=== PATIENT | female | born 1970 | race Caucasian/White ===

== ENCOUNTER → 2017-03-04 07:13 | Outpatient (CLI) | payer OTHER, SELFPAY ==
[2017-03-04 08:24] LABS: Anion Gap 12.1 mEq/L (5-15); Blood Urea Nitrogen 17 mg/dL (7-18); Calcium 8.7 mg/dL (8.5-10.1); Carbon Dioxide 31 mmol/L (21.0-32.0); Chloride 103 mmol/L (98-107); Creatinine,Serum 3.28 mg/dL (0.55-1.02); Estimated Glomerular Filt Rate 15 ml/min (>60); GFR (African American) 18 ML/MIN (>60); Glucose 94 mg/dL (74-106); Magnesium 2.3 mg/dL (1.4-2.2); Phosphorous 2.8 mg/dL (2.4-4.9); Potassium 4.1 mmoL/L (3.5-5.1); Sodium 142 mmol/L (136-145); Uric Acid 7.2 mg/dL (2.6-7.2)
[2017-03-04 09:24] LABS: Basophils # 0.1 K/mm3 (0-0.2); Basophils % 0.6 % (0.1-2.0); Eosinophils # 0.3 K/mm3 (0.0-0.4); Eosinophils % 4.3 % (0.1-12.0); Hematocrit 39.2 % (37.0-47.0); Hemoglobin 12.2 g/dL (12.2-16.2); Lymphocytes # 1.2 K/mm3 (0.7-4.5); Lymphocytes % 15.2 K/mm3 (10-50); Mean Corpuscular HGB Conc 31.2 g/dL (31.8-35.4); Mean Corpuscular Hemoglobin 28.6 pg (27.0-31.2); Mean Corpuscular Volume 91.6 fl (81-99); Mean Platelet Volume 8.1 fl (7.4-10.4); Monocytes # 0.5 K/mm3 (0.1-1.0); Monocytes % 5.9 % (1.7-9.3); Neutrophils # 5.6 K/mm3 (1.8-7.8); Neutrophils % 73.9 % (37.0-80.0); Platelet Count 400 K/mm3 (142-424); Red Blood Count 4.27 M/mm3 (4.20-5.40); Red Cell Distribution Width 12.9 % (11.5-17.5); White Blood Count 7.6 K/mm3 (4.8-10.8)
[2017-03-05 08:52] LABS: Vitamin D 25 Hydroxy 57.3 ng/mL (30.0-100.0)
[2017-03-06 18:20] LABS: Parathyroid Hormone Intact 134 pg/mL (15-65)
== END ==
PROVIDERS: PCP Family Medicine; Visit Provider Internal Medicine Nephrology
DX: N18.4 Chronic kidney disease, stage 4 (severe) (principal)
CPT/HCPCS: 36415; 80069; 82652; 83735; 83970; 84550; 85025

== ENCOUNTER → 2017-03-06 07:04 | Outpatient (CLI) | payer OTHER, SELFPAY ==
[2017-03-07 18:30] LABS: Calcium, Ionized 5.5 mg/dL (4.5-5.6)
== END ==
PROVIDERS: PCP Family Medicine; Visit Provider Internal Medicine Nephrology
DX: N18.4 Chronic kidney disease, stage 4 (severe) (principal)
CPT/HCPCS: 36415; 82330

== ENCOUNTER → 2017-03-09 13:01 | Outpatient (POV) | payer OTHER, SELFPAY | PROVIDERS: PCP Family Medicine; Visit Provider Internal Medicine Nephrology | DX: Z00.00 Encounter for general adult medical examination without abnormal findings (principal) ==

== ENCOUNTER → 2017-06-05 07:16 | Outpatient (CLI) | payer OTHER, SELFPAY | PROVIDERS: Visit Provider Internal Medicine Nephrology | DX: N18.5 Chronic kidney disease, stage 5 (principal) ==

== ENCOUNTER → 2017-06-08 06:59 | Outpatient (CLI) | payer OTHER, SELFPAY ==
[2017-06-08 08:42] LABS: Anion Gap 10.8 mEq/L (5-15); Blood Urea Nitrogen 17 mg/dL (7-18); Calcium 8.8 mg/dL (8.5-10.1); Carbon Dioxide 29 mmol/L (21.0-32.0); Chloride 104 mmol/L (98-107); Creatinine,Serum 3.09 mg/dL (0.55-1.02); Estimated Glomerular Filt Rate 16 ml/min (>60); GFR (African American) 20 ML/MIN (>60); Glucose 81 mg/dL (74-106); Magnesium 2.2 mg/dL (1.4-2.2); Phosphorous 2.5 mg/dL (2.4-4.9); Potassium 4.8 mmoL/L (3.5-5.1); Sodium 139 mmol/L (136-145)
== END ==
PROVIDERS: Visit Provider Internal Medicine Nephrology
DX: N18.5 Chronic kidney disease, stage 5 (principal)
CPT/HCPCS: 36415; 80069; 83520; 83735

== ENCOUNTER → 2017-06-15 14:15 | Outpatient (POV) | payer OTHER, SELFPAY | PROVIDERS: PCP Family Medicine; Visit Provider Internal Medicine Nephrology | DX: Z00.00 Encounter for general adult medical examination without abnormal findings (principal) ==

== ENCOUNTER → 2017-08-21 08:15 | Outpatient (CLI) | payer OTHER, SELFPAY ==
--- NOTE | 2017-08-21 08:18 | MM_ITS ---
MM Dig screening mamm BI w/CAD CAD Screening COMPARISON: Digital mammograms with CAD 02/01/2016 INDICATION: There is a history of breast cancer in a patient maternal aunt. TECHNIQUE: Standard CC and MLO images were obtained. R2 CAD reviewed. FINDINGS: There is a markedly dense and heterogenic parenchymal pattern definitely lessening the sensitivity of there is an asymmetric density lower inner quadrant right breast not definitely seen on the previous exam with slightly irregular borders. Recommend the patient return for spot compression views and 90 lateral view and ultrasound for additional evaluation. There is no other suspicious lesion and there are no suspicious microcalcifications. Mammography. IMPRESSION: Markedly dense parenchyma pattern with possible new asymmetric density right breast BI-RADS Category: 0 Need Additional Imaging Evaluation RECOMMENDED FOLLOW-UP: IMM - IMMEDIATE FOLLOW-UP RECOMMENDED (A letter has been sent to the patient regarding results of the study.)
== END ==
PROVIDERS: PCP Family Medicine; Visit Provider Family Medicine
DX: Z12.31 Encounter for screening mammogram for malignant neoplasm of breast (principal)
CPT/HCPCS: 77067

== ENCOUNTER → 2017-09-04 14:17 | Outpatient (CLI) | payer OTHER, SELFPAY ==
--- NOTE | 2017-09-04 14:20 | MM_ITS ---
MM Dig mamm DX unilat RT CAD COMPARISON: Digital mammograms with CAD 08/21/2017 INDICATION: Possible developing asymmetric density right breast TECHNIQUE: Possible compression MLO and exaggerated cc views FINDINGS: Markedly prominent heterogenic fibroglandular densities are seen in the breast. The possible asymmetric density which was best seen on the MLO view appears to compress out on the additional views. Ultrasound performed same date showed no suspicious lesion at this site. IMPRESSION: Negative problem-solving views with essentially negative ultrasound and recommend patient continue with yearly screening mammography BI-RADS Category: 1 Negative RECOMMENDED FOLLOW-UP: 1YR - 1 YEAR FOLLOW-UP (A letter has been sent to the patient regarding results of the study.)
--- NOTE | 2017-09-04 14:20 | US_ITS ---
US breast RT complete COMPARISON: None HISTORY: Possible developing asymmetric density on recent screening mammogram lower inner quadrant TECHNIQUE: Targeted ultrasound FINDINGS: Is a markedly heterogenic echogenic pattern of the breast parenchyma. There is a small hypoechoic benign-appearing cystic lesion at the 3:00 position near the nipple measuring 0.4 x 0.3 x 0.3 cm. There is another hypoechoic cystic-appearing lesion with internal echoes at the 10:00 position in the nipple measuring 0.7 x 0.7 x 0.3 cm. There is additional small cystic appearing lesion at the 9:00 position near the nipple. There is no suspicious solid lesion area in particular scanning in the 4:00 position lower inner quadrant show no abnormality. There are 2 normal appearing nodes in right axilla. IMPRESSION: Markedly and diffusely heterogenic echogenicity consistent with prominent fibrocystic change and consistent with the mammogram findings with no suspicious cystic or solid lesions seen and recommend patient continue with yearly screening mammography.
== END ==
PROVIDERS: PCP Family Medicine; Visit Provider Nurse Practitioner Family
DX: R92.8 Other abnormal and inconclusive findings on diagnostic imaging of breast (principal)
CPT/HCPCS: 76641; 77065

== ENCOUNTER → 2017-10-13 07:08 | Outpatient (CLI) | payer OTHER, SELFPAY ==
[2017-10-13 08:22] LABS: Albumin Level 2.8 gm/dL (3.4-5.0); Anion Gap 10.4 mEq/L (5-15); Blood Urea Nitrogen 12 mg/dL (7-18); Carbon Dioxide 30 mmol/L (21.0-32.0); Chloride 106 mmol/L (98-107); Creatinine,Serum 3.24 mg/dL (0.55-1.02); Estimated Glomerular Filt Rate 15 ml/min (>60); GFR (African American) 19 ML/MIN (>60); Glucose 79 mg/dL (74-106); Phosphorous 3.1 mg/dL (2.4-4.9); Potassium 4.4 mmoL/L (3.5-5.1); Sodium 142 mmol/L (136-145); Uric Acid 7.4 mg/dL (2.6-7.2)
== END ==
PROVIDERS: PCP Family Medicine; Visit Provider Internal Medicine Nephrology
DX: N18.4 Chronic kidney disease, stage 4 (severe) (principal)
CPT/HCPCS: 36415; 80069; 82652; 83520; 84550

== ENCOUNTER → 2017-10-26 12:54 | Outpatient (POV) | payer OTHER, SELFPAY | PROVIDERS: PCP Family Medicine; Visit Provider Internal Medicine Nephrology | DX: Z00.00 Encounter for general adult medical examination without abnormal findings (principal) ==

== ENCOUNTER → 2018-01-07 07:05 | Outpatient (CLI) | payer OTHER, SELFPAY ==
[2018-01-07 09:14] LABS: Albumin Level 2.9 gm/dL (3.4-5.0); Anion Gap 12.5 mEq/L (5-15); Blood Urea Nitrogen 16 mg/dL (7-18); Calcium 8.2 mg/dL (8.5-10.1); Carbon Dioxide 30 mmol/L (21.0-32.0); Chloride 101 mmol/L (98-107); Estimated Glomerular Filt Rate 13 ml/min (>60); GFR (African American) 16 ML/MIN (>60); Glucose 102 mg/dL (74-106); Phosphorous 3.2 mg/dL (2.4-4.9); Potassium 4.5 mmoL/L (3.5-5.1); Sodium 139 mmol/L (136-145)
[2018-01-07 09:18] LABS: Creatinine,Serum 3.73 mg/dL (0.55-1.02)
== END ==
PROVIDERS: Visit Provider Internal Medicine Nephrology
DX: N18.5 Chronic kidney disease, stage 5 (principal)
CPT/HCPCS: 36415; 80069

== ENCOUNTER → 2018-01-11 14:41 | Outpatient (POV) | payer OTHER, SELFPAY | PROVIDERS: Visit Provider Internal Medicine Nephrology | DX: Z00.00 Encounter for general adult medical examination without abnormal findings (principal) ==

== ENCOUNTER → 2018-01-26 07:35 | Outpatient (CLI) | payer OTHER, SELFPAY | PROVIDERS: Visit Provider Transplant Surgery | DX: Z76.82 Awaiting organ transplant status (principal) | CPT/HCPCS: 36415 ==

== ENCOUNTER → 2018-04-08 07:04 | Outpatient (CLI) | payer OTHER, SELFPAY ==
[2018-04-08 08:20] LABS: Albumin Level 2.7 gm/dL (3.4-5.0); Anion Gap 12.9 mEq/L (5-15); Blood Urea Nitrogen 23 mg/dL (7-18); Calcium 8.1 mg/dL (8.5-10.1); Carbon Dioxide 30 mmol/L (21.0-32.0); Chloride 98 mmol/L (98-107); Estimated Glomerular Filt Rate 10 ml/min (>60); GFR (African American) 13 ML/MIN (>60); Glucose 75 mg/dL (74-106); Phosphorous 4.3 mg/dL (2.4-4.9); Potassium 3.9 mmoL/L (3.5-5.1); Sodium 137 mmol/L (136-145); Uric Acid 8.3 mg/dL (2.6-7.2)
[2018-04-08 08:25] LABS: Basophils # 0.1 K/mm3 (0-0.2); Basophils % 0.6 % (0.1-2.0); Eosinophils # 0.4 K/mm3 (0.0-0.4); Eosinophils % 3.2 % (0.1-12.0); Hematocrit 40.2 % (37.0-47.0); Hemoglobin 12.6 g/dL (12.2-16.2); Lymphocytes # 1.3 K/mm3 (0.7-4.5); Lymphocytes % 10.7 % (10-50); Mean Corpuscular HGB Conc 31.3 g/dL (31.8-35.4); Mean Corpuscular Hemoglobin 28.9 pg (27.0-31.2); Mean Corpuscular Volume 92.3 fl (81-99); Mean Platelet Volume 7.5 fl (7.4-10.4); Monocytes # 0.5 K/mm3 (0.1-1.0); Monocytes % 3.9 % (1.7-9.3); Neutrophils # 9.9 K/mm3 (1.8-7.8); Neutrophils % 81.6 % (37.0-80.0); Platelet Count 438 K/mm3 (142-424); Red Blood Count 4.35 M/mm3 (4.20-5.40); Red Cell Distribution Width 14.7 % (11.5-17.5); White Blood Count 12.1 K/mm3 (4.8-10.8)
[2018-04-08 09:40] LABS: Creatinine,Serum 4.55 mg/dL (0.55-1.02)
== END ==
PROVIDERS: Visit Provider Internal Medicine Nephrology
DX: N18.5 Chronic kidney disease, stage 5 (principal)
CPT/HCPCS: 36415; 80069; 82652; 84550; 85025

== ENCOUNTER → 2018-04-12 12:36 | Outpatient (POV) | payer OTHER, SELFPAY | PROVIDERS: Visit Provider Internal Medicine Nephrology | DX: Z00.00 Encounter for general adult medical examination without abnormal findings (principal) ==

== ENCOUNTER → 2018-07-12 07:18 | Outpatient (CLI) | payer OTHER, SELFPAY ==
[2018-07-12 07:59] LABS: Basophils # 0.1 K/mm3 (0-0.2); Basophils % 0.5 % (0.1-2.0); Eosinophils # 0.3 K/mm3 (0.0-0.4); Eosinophils % 2.6 % (0.1-12.0); Hematocrit 39.1 % (37.0-47.0); Hemoglobin 12.9 g/dL (12.2-16.2); Lymphocytes # 1.4 K/mm3 (0.7-4.5); Lymphocytes % 13.8 % (10-50); Mean Corpuscular HGB Conc 32.9 g/dL (31.8-35.4); Mean Corpuscular Hemoglobin 29.9 pg (27.0-31.2); Mean Platelet Volume 7.4 fl (7.4-10.4); Monocytes # 0.5 K/mm3 (0.1-1.0); Monocytes % 4.5 % (1.7-9.3); Neutrophils % 78.5 % (37.0-80.0); Platelet Count 412 K/mm3 (142-424); Red Cell Distribution Width 14.6 % (11.5-17.5); White Blood Count 10.1 K/mm3 (4.8-10.8)
[2018-07-12 08:34] LABS: Anion Gap 12.9 mEq/L (5-15); Blood Urea Nitrogen 25 mg/dL (7-18); Calcium 8.4 mg/dL (8.5-10.1); Carbon Dioxide 34 mmol/L (21.0-32.0); Chloride 96 mmol/L (98-107); Estimated Glomerular Filt Rate 9 ml/min (>60); GFR (African American) 11 ML/MIN (>60); Glucose 77 mg/dL (74-106); Phosphorous 4.2 mg/dL (2.4-4.9); Potassium 3.9 mmoL/L (3.5-5.1); Sodium 139 mmol/L (136-145)
[2018-07-12 09:15] LABS: Creatinine,Serum 5.28 mg/dL (0.55-1.02)
[2018-07-16 06:19] LABS: Vitamin D 25 Hydroxy 83.7 ng/mL (30.0-100.0)
== END ==
PROVIDERS: Visit Provider Internal Medicine Nephrology
DX: N18.5 Chronic kidney disease, stage 5 (principal); Z76.82 Awaiting organ transplant status
CPT/HCPCS: 36415; 80069; 82652; 85025

== ENCOUNTER → 2018-07-21 14:31 | Outpatient (POV) | payer OTHER, SELFPAY | PROVIDERS: Visit Provider Internal Medicine Nephrology | DX: Z00.00 Encounter for general adult medical examination without abnormal findings (principal) ==

== ENCOUNTER → 2018-10-27 09:21 | Outpatient (CLI) | payer OTHER, SELFPAY ==
--- NOTE | 2018-10-27 09:23 | MM_ITS ---
PROCEDURE: MM DIG SCREENING MAMM BI W/CAD CLINICAL INDICATION: SCREENING There is a history of breast cancer patient's maternal aunt. COMPARISON: DMSB DIG MAMM-SCREEN STEPHANIE from 02/01/2016 [facility] MM Dig screening mamm BI w/CAD from 08/21/2017 DXRT MM Dig mamm DX unilat RT CAD from 09/04/2017 TECHNIQUE: Standard CC and MLO images were obtained. R2 CAD reviewed. FINDINGS: There is a diffusely dense and heterogenic parenchymal pattern lessening the sensitivity of mammography. The findings are fairly symmetrical bilaterally. There is no new or suspicious mass in either breast and no suspicious microcalcifications. There is a stable well-defined density lower left axilla likely a low-lying node. IMPRESSION: Diffusely dense and heterogenic parenchymal pattern with no suspicious lesions seen BI-RAD Category: 1 Negative FOLLOW-UP: 1YR 1 Year Follow-up (A letter has been sent to the patient regarding results of the study.) Dictated by: Dr. Charlie Lance MD 10/31/2018 19:[address] Charlie Lance MD in [place] 10/31/2018 19:33
== END ==
PROVIDERS: PCP Family Medicine; Referring Provider Nurse Practitioner Family; Visit Provider Nurse Practitioner Family
DX: Z12.31 Encounter for screening mammogram for malignant neoplasm of breast (principal)
CPT/HCPCS: 77067

== ENCOUNTER → 2018-11-04 06:59 | Outpatient (CLI) | payer OTHER, SELFPAY ==
[2018-11-04 07:27] LABS: Basophils % 0.4 % (0.1-2.0); Eosinophils # 0.2 K/mm3 (0.0-0.4); Eosinophils % 2.7 % (0.1-12.0); Hematocrit 35.8 % (37.0-47.0); Hemoglobin 10.8 g/dL (12.2-16.2); Lymphocytes # 1.3 K/mm3 (0.7-4.5); Lymphocytes % 13.7 % (10-50); Mean Corpuscular HGB Conc 30.1 g/dL (31.8-35.4); Mean Corpuscular Hemoglobin 29.5 pg (27.0-31.2); Mean Corpuscular Volume 98.2 fl (81-99); Mean Platelet Volume 7.7 fl (7.4-10.4); Monocytes # 0.6 K/mm3 (0.1-1.0); Monocytes % 6.9 % (1.7-9.3); Neutrophils % 76.4 % (37.0-80.0); Platelet Count 423 K/mm3 (142-424); Red Blood Count 3.65 M/mm3 (4.20-5.40); White Blood Count 9.1 K/mm3 (4.8-10.8)
[2018-11-04 09:02] LABS: Albumin Level 3.1 gm/dL (3.4-5.0); Anion Gap 12.9 mEq/L (5-15); Blood Urea Nitrogen 26 mg/dL (7-18); Calcium 8.8 mg/dL (8.5-10.1); Carbon Dioxide 32 mmol/L (21.0-32.0); Chloride 97 mmol/L (98-107); Estimated Glomerular Filt Rate 9 ml/min (>60); GFR (African American) 11 ML/MIN (>60); Glucose 73 mg/dL (74-106); Phosphorous 5.4 mg/dL (2.4-4.9); Potassium 3.9 mmoL/L (3.5-5.1); Sodium 138 mmol/L (136-145)
[2018-11-04 09:15] LABS: Creatinine,Serum 5.03 mg/dL (0.55-1.02)
[2018-11-06 13:46] LABS: Vitamin D 25 Hydroxy 73.1 ng/mL (30.0-100.0)
== END ==
PROVIDERS: Visit Provider Internal Medicine Nephrology
DX: N17.9 Acute kidney failure, unspecified (principal)
CPT/HCPCS: 36415; 80069; 82652; 84550; 85025

== ENCOUNTER → 2018-11-08 15:17 | Outpatient (POV) | payer OTHER, SELFPAY | PROVIDERS: Visit Provider Internal Medicine Nephrology | DX: Z00.00 Encounter for general adult medical examination without abnormal findings (principal) ==

== ENCOUNTER → 2018-11-30 08:19 | Outpatient (POV) | payer OTHER, SELFPAY | PROVIDERS: Visit Provider Dermatology | DX: Z00.00 Encounter for general adult medical examination without abnormal findings (principal) ==

== ENCOUNTER → 2019-01-11 08:31 | Outpatient (POV) | payer OTHER, SELFPAY | PROVIDERS: Visit Provider Dermatology | DX: Z00.00 Encounter for general adult medical examination without abnormal findings (principal) ==

== ENCOUNTER → 2019-01-21 07:07 | Outpatient (CLI) | payer OTHER, SELFPAY ==
[2019-01-21 07:55] LABS: Basophils % 0.4 % (0.1-2.0); Eosinophils # 0.3 K/mm3 (0.0-0.4); Eosinophils % 2.7 % (0.1-12.0); Hemoglobin 10.7 g/dL (12.2-16.2); Lymphocytes # 1.4 K/mm3 (0.7-4.5); Lymphocytes % 13.1 % (10-50); Mean Corpuscular HGB Conc 32.5 g/dL (31.8-35.4); Mean Corpuscular Hemoglobin 31.1 pg (27.0-31.2); Mean Corpuscular Volume 95.7 fl (81-99); Mean Platelet Volume 7.7 fl (7.4-10.4); Monocytes # 0.6 K/mm3 (0.1-1.0); Monocytes % 5.3 % (1.7-9.3); Neutrophils # 8.3 K/mm3 (1.8-7.8); Neutrophils % 78.4 % (37.0-80.0); Platelet Count 389 K/mm3 (142-424); Red Blood Count 3.45 M/mm3 (4.20-5.40); Red Cell Distribution Width 14.1 % (11.5-17.5); White Blood Count 10.6 K/mm3 (4.8-10.8)
[2019-01-21 09:05] LABS: Albumin Level 2.8 gm/dL (3.4-5.0); Anion Gap 9.7 mEq/L (5-15); Blood Urea Nitrogen 30 mg/dL (7-18); Calcium 8.2 mg/dL (8.5-10.1); Carbon Dioxide 37 mmol/L (21.0-32.0); Chloride 96 mmol/L (98-107); Estimated Glomerular Filt Rate 8 ml/min (>60); GFR (African American) 10 ML/MIN (>60); Glucose 69 mg/dL (74-106); Phosphorous 5.3 mg/dL (2.4-4.9); Potassium 3.7 mmoL/L (3.5-5.1); Sodium 139 mmol/L (136-145)
[2019-01-21 09:19] LABS: Creatinine,Serum 5.74 mg/dL (0.55-1.02)
== END ==
PROVIDERS: Internal Medicine Nephrology; Visit Provider Transplant Surgery
DX: N18.5 Chronic kidney disease, stage 5 (principal); Z76.82 Awaiting organ transplant status
CPT/HCPCS: 36415; 80069; 85025

== ENCOUNTER → 2019-01-26 13:45 | Outpatient (POV) | payer OTHER, SELFPAY | PROVIDERS: Visit Provider Internal Medicine Nephrology | DX: Z00.00 Encounter for general adult medical examination without abnormal findings (principal) ==

== ENCOUNTER → 2019-03-05 09:39 | Outpatient (CLI) | payer OTHER, SELFPAY ==
[2019-03-05 13:27] LABS: Anion Gap 10.6 mEq/L (5-15); Blood Urea Nitrogen 24 mg/dL (7-18); Calcium 7.9 mg/dL (8.5-10.1); Carbon Dioxide 32 mmol/L (21.0-32.0); Chloride 102 mmol/L (98-107); Estimated Glomerular Filt Rate 9 ml/min (>60); GFR (African American) 11 ML/MIN (>60); Glucose 71 mg/dL (74-106); Phosphorous 4.3 mg/dL (2.4-4.9); Potassium 4.6 mmoL/L (3.5-5.1); Sodium 140 mmol/L (136-145)
== END ==
PROVIDERS: Visit Provider Internal Medicine Nephrology
DX: N18.5 Chronic kidney disease, stage 5 (principal)
CPT/HCPCS: 36415; 80069

== ENCOUNTER → 2019-03-09 09:37 | Outpatient (POV) | payer OTHER, SELFPAY | PROVIDERS: Visit Provider Internal Medicine Nephrology | DX: Z00.00 Encounter for general adult medical examination without abnormal findings (principal) ==

== ENCOUNTER → 2019-03-29 08:02 | Outpatient (POV) | payer OTHER, SELFPAY | PROVIDERS: PCP Family Medicine; Visit Provider Dermatology | DX: Z00.00 Encounter for general adult medical examination without abnormal findings (principal) ==

== ENCOUNTER → 2019-04-08 07:10 | Outpatient (CLI) | payer OTHER, SELFPAY ==
[2019-04-08 07:27] LABS: Basophils # 0.1 K/mm3 (0-0.2); Basophils % 0.7 % (0.1-2.0); Eosinophils # 0.3 K/mm3 (0.0-0.4); Eosinophils % 3.5 % (0.1-12.0); Hematocrit 32.5 % (37.0-47.0); Hemoglobin 10.4 g/dL (12.2-16.2); Lymphocytes % 11.6 % (10-50); Mean Corpuscular HGB Conc 31.9 g/dL (31.8-35.4); Mean Corpuscular Hemoglobin 30.2 pg (27.0-31.2); Mean Corpuscular Volume 94.7 fl (81-99); Mean Platelet Volume 8.2 fl (7.4-10.4); Monocytes # 0.4 K/mm3 (0.1-1.0); Monocytes % 5.1 % (1.7-9.3); Neutrophils # 6.5 K/mm3 (1.8-7.8); Neutrophils % 79.2 % (37.0-80.0); Platelet Count 398 K/mm3 (142-424); Red Blood Count 3.43 M/mm3 (4.20-5.40); Red Cell Distribution Width 13.8 % (11.5-17.5); White Blood Count 8.2 K/mm3 (4.8-10.8)
[2019-04-08 09:29] LABS: Albumin Level 3.6 g/dl (3.5-5.0); Chloride 103 mmol/L (98-107); Potassium 4.3 mmoL/L (3.5-5.1); Sodium 139 mmol/L (136-145)
[2019-04-08 09:32] LABS: Anion Gap 12.3 mEq/L (5-15); Blood Urea Nitrogen 30 mg/dl (7-17); Carbon Dioxide 28 mmol/L (22.0-30.0); Estimated Glomerular Filt Rate 11 ml/min (>60); GFR (African American) 13 ML/MIN (>60)
[2019-04-08 09:33] LABS: Calcium 8.2 mg/dl (8.4-10.2); Glucose 78 mg/dl (74-100); Phosphorous 4.9 mg/dl (2.5-4.5)
[2019-04-09 08:32] LABS: Vitamin D 25 Hydroxy 67.7 ng/mL (30.0-100.0)
[2019-04-09 14:22] LABS: Parathyroid Hormone Intact 363 pg/mL (15-65)
== END ==
PROVIDERS: Visit Provider Internal Medicine Nephrology
DX: N18.5 Chronic kidney disease, stage 5 (principal)
CPT/HCPCS: 36415; 80069; 82652; 83970; 85025

== ENCOUNTER → 2019-04-13 12:37 | Outpatient (POV) | payer OTHER, SELFPAY | PROVIDERS: PCP Family Medicine; Visit Provider Internal Medicine Nephrology | DX: Z00.00 Encounter for general adult medical examination without abnormal findings (principal) ==

== ENCOUNTER → 2019-06-11 07:11 | Outpatient (CLI) | payer OTHER, SELFPAY ==
[2019-06-11 08:17] LABS: Basophils # 0.1 K/mm3 (0-0.2); Basophils % 0.9 % (0.1-2.0); Eosinophils # 0.4 K/mm3 (0.0-0.4); Eosinophils % 4.6 % (0.1-12.0); Hematocrit 34.4 % (37.0-47.0); Hemoglobin 10.8 g/dL (12.2-16.2); Lymphocytes # 1.1 K/mm3 (0.7-4.5); Mean Corpuscular HGB Conc 31.4 g/dL (31.8-35.4); Mean Corpuscular Hemoglobin 29.7 pg (27.0-31.2); Mean Corpuscular Volume 94.7 fl (81-99); Mean Platelet Volume 8.4 fl (7.4-10.4); Monocytes # 0.5 K/mm3 (0.1-1.0); Monocytes % 5.7 % (1.7-9.3); Neutrophils # 6.2 K/mm3 (1.8-7.8); Neutrophils % 75.7 % (37.0-80.0); Platelet Count 406 K/mm3 (142-424); Red Blood Count 3.63 M/mm3 (4.20-5.40); Red Cell Distribution Width 14.1 % (11.5-17.5); White Blood Count 8.2 K/mm3 (4.8-10.8)
[2019-06-11 11:07] LABS: Chloride 101 mmol/L (98-107)
[2019-06-11 11:08] LABS: Albumin Level 3.4 g/dl (3.5-5.0); Potassium 4.1 mmoL/L (3.5-5.1); Sodium 137 mmol/L (136-145)
[2019-06-11 11:10] LABS: Blood Urea Nitrogen 29 mg/dl (7-17); Estimated Glomerular Filt Rate 11 ml/min (>60); GFR (African American) 13 ML/MIN (>60)
[2019-06-11 11:11] LABS: Anion Gap 14.1 mEq/L (5-15); Carbon Dioxide 26 mmol/L (22.0-30.0); Glucose 66 mg/dl (74-100); Phosphorous 5.1 mg/dl (2.5-4.5)
--- NOTE | 2019-06-11 17:20 | PC.NURSE ---
LEFT MESSAGE AT OFFICE FOR DR CHAVEZ TO CALL THE LAB FOR A NOTIFICATION RESULT ON A PATIENT OF HIS
== END ==
PROVIDERS: Visit Provider Internal Medicine Nephrology
DX: N18.5 Chronic kidney disease, stage 5 (principal)
CPT/HCPCS: 36415; 80069; 85025

== ENCOUNTER → 2019-08-12 08:10 | Outpatient (CLI) | payer OTHER, SELFPAY ==
[2019-08-12 08:42] LABS: Basophils # 0.1 K/mm3 (0-0.2); Basophils % 0.6 % (0.1-2.0); Eosinophils # 0.3 K/mm3 (0.0-0.4); Eosinophils % 3.5 % (0.1-12.0); Hematocrit 36.5 % (37.0-47.0); Hemoglobin 11.8 g/dL (12.2-16.2); Lymphocytes # 1.2 K/mm3 (0.7-4.5); Lymphocytes % 12.5 % (10-50); Mean Corpuscular HGB Conc 32.4 g/dL (31.8-35.4); Mean Corpuscular Hemoglobin 30.9 pg (27.0-31.2); Mean Corpuscular Volume 95.2 fl (81-99); Mean Platelet Volume 7.7 fl (7.4-10.4); Monocytes # 0.4 K/mm3 (0.1-1.0); Monocytes % 4.3 % (1.7-9.3); Neutrophils # 7.6 K/mm3 (1.8-7.8); Neutrophils % 79.2 % (37.0-80.0); Platelet Count 369 K/mm3 (142-424); Red Blood Count 3.84 M/mm3 (4.20-5.40); Red Cell Distribution Width 14.9 % (11.5-17.5); White Blood Count 9.5 K/mm3 (4.8-10.8)
[2019-08-12 09:54] LABS: Chloride 105 mmol/L (98-107); Sodium 139 mmol/L (136-145)
[2019-08-12 09:55] LABS: Albumin Level 3.4 g/dl (3.5-5.0); Potassium 4.3 mmoL/L (3.5-5.1)
[2019-08-12 09:57] LABS: Anion Gap 10.3 mEq/L (5-15); Blood Urea Nitrogen 30 mg/dl (7-17); Carbon Dioxide 28 mmol/L (22.0-30.0); Estimated Glomerular Filt Rate 11 ml/min (>60); GFR (African American) 13 ML/MIN (>60); Uric Acid 5.2 mg/dl (2.5-6.2)
[2019-08-12 09:58] LABS: Calcium 8.1 mg/dl (8.4-10.2); Glucose 79 mg/dl (74-100); Phosphorous 4.9 mg/dl (2.5-4.5)
[2019-08-12 10:08] LABS: Total Iron Binding Capacity 382 ug/dL (265-497)
[2019-08-12 10:31] LABS: Ferritin 6.79 ng/ml (6.24-137)
[2019-08-12 10:42] LABS: 25-OH Vitamin D, Total 60.8 ng/mL (30-100)
[2019-08-13 18:05] LABS: Folate 9.6 ng/mL (>3.0)
== END ==
PROVIDERS: Visit Provider Internal Medicine Nephrology
DX: N18.5 Chronic kidney disease, stage 5 (principal)
CPT/HCPCS: 36415; 80069; 82306; 82728; 82746; 83550; 84550; 85025

== ENCOUNTER → 2019-11-15 08:10 | Outpatient (CLI) | payer OTHER, SELFPAY ==
--- NOTE | 2019-11-15 08:18 | MM_ITS ---
PROCEDURE: MM DIG SCREENING MAMM BI W/CAD Digital Breast Tomosynthesis Included CLINICAL INDICATION: SCREENING There is a history of breast cancer patient's mother and maternal aunt. Patient currently is on control pills. COMPARISON: MG SCBI MM Dig screening mamm BI w/CAD from 08/21/2017 MG DXRT MM Dig mamm DX unilat RT CAD from 09/04/2017 MG MM DIG SCREENING MAMM BI W/CAD from 10/27/2018 TECHNIQUE: Standard CC and MLO images and 3D Tomosynthesis was obtained. R2 CAD reviewed. FINDINGS: There is a diffusely dense and heterogenic parenchymal pattern bilaterally. Glandular elements are most prominent in the upper outer quadrants bilaterally. There is no suspicious lesion in either breast and no suspicious microcalcifications. IMPRESSION: Moderate diffuse breast density with no suspicious lesions seen BI-RAD Category: 1 Negative FOLLOW-UP: 1YR 1 Year Follow-up (A letter has been sent to the patient regarding results of the study.) Dictated by: Dr. Charlie Lance MD 11/16/2019 16:37 Dr. Charlie Lance MD in [place] 11/16/2019 16:37
== END ==
PROVIDERS: PCP Family Medicine; Visit Provider Family Medicine
DX: Z12.31 Encounter for screening mammogram for malignant neoplasm of breast (principal)
CPT/HCPCS: 77063; 77067

== ENCOUNTER → 2019-11-23 07:07 | Outpatient (CLI) | payer OTHER, SELFPAY ==
[2019-11-23 11:25] LABS: Albumin Level 3.7 g/dl (3.5-5.0); Anion Gap 14.5 mEq/L (5-15); Blood Urea Nitrogen 34 mg/dl (7-17); Calcium 8.4 mg/dl (8.4-10.2); Carbon Dioxide 27 mmol/L (22.0-30.0); Chloride 103 mmol/L (98-107); Estimated Glomerular Filt Rate 8 ml/min (>60); GFR (African American) 9 ML/MIN (>60); Glucose 80 mg/dl (74-100); Phosphorous 5.8 mg/dl (2.5-4.5); Potassium 4.5 mmoL/L (3.5-5.1); Sodium 140 mmol/L (136-145)
[2019-11-23 11:34] LABS: Intact Parathyroid Hormone 895.7 pg/mL (7.5-53.5)
[2019-11-23 11:39] LABS: 25-OH Vitamin D, Total 43.3 ng/mL (30-100)
[2019-11-26 14:17] LABS: Calcium, Ionized 4.6 mg/dL (4.5-5.6)
== END ==
PROVIDERS: Visit Provider Internal Medicine Nephrology
DX: N18.5 Chronic kidney disease, stage 5 (principal)
CPT/HCPCS: 36415; 80069; 82306; 82330; 83970

== ENCOUNTER → 2019-12-13 09:10 | Outpatient (POV) | payer OTHER, SELFPAY | PROVIDERS: Visit Provider Dermatology | DX: Z00.00 Encounter for general adult medical examination without abnormal findings (principal) ==

== ENCOUNTER → 2020-02-09 10:38 | Outpatient (CLI) | payer OTHER, SELFPAY ==
[2020-02-09 12:04] LABS: Albumin Level 3.8 g/dl (3.5-5.0); Anion Gap 12.6 mEq/L (5-15); Blood Urea Nitrogen 46 mg/dl (7-17); Calcium 8.5 mg/dl (8.4-10.2); Carbon Dioxide 33 mmol/L (22.0-30.0); Chloride 95 mmol/L (98-107); Estimated Glomerular Filt Rate 6 ml/min (>60); GFR (African American) 7 ML/MIN (>60); Glucose 91 mg/dl (74-100); Phosphorous 6.7 mg/dl (2.5-4.5); Potassium 4.6 mmoL/L (3.5-5.1); Sodium 136 mmol/L (136-145)
[2020-02-09 12:17] LABS: Intact Parathyroid Hormone 809.4 pg/mL (7.5-53.5)
[2020-02-11 14:35] LABS: Calcium, Ionized 4.6 mg/dL (4.5-5.6)
== END ==
PROVIDERS: Visit Provider Internal Medicine Nephrology
DX: N18.5 Chronic kidney disease, stage 5 (principal)
CPT/HCPCS: 36415; 80069; 82330; 83970

== ENCOUNTER → 2020-02-10 11:32 | Outpatient (CLI) | payer OTHER, SELFPAY | PROVIDERS: PCP Family Medicine; Visit Provider Transplant Surgery | DX: Z76.82 Awaiting organ transplant status (principal) | CPT/HCPCS: 36415 ==

== ENCOUNTER → 2020-03-23 07:09 | Outpatient (CLI) | payer OTHER, SELFPAY ==
[2020-03-23 08:05] LABS: Albumin Level 3.8 g/dl (3.5-5.0); Chloride 103 mmol/L (98-107); Potassium 4.5 mmoL/L (3.5-5.1); Sodium 138 mmol/L (136-145)
[2020-03-23 08:07] LABS: Blood Urea Nitrogen 44 mg/dl (7-17); Estimated Glomerular Filt Rate 6 ml/min (>60); GFR (African American) 8 ML/MIN (>60)
[2020-03-23 08:08] LABS: Anion Gap 10.5 mEq/L (5-15); Calcium 8.2 mg/dl (8.4-10.2); Carbon Dioxide 29 mmol/L (22.0-30.0); Glucose 113 mg/dl (74-100); Phosphorous 6.2 mg/dl (2.5-4.5)
== END ==
PROVIDERS: Visit Provider Internal Medicine Nephrology
DX: N18.5 Chronic kidney disease, stage 5 (principal)
CPT/HCPCS: 36415; 80069

== ENCOUNTER → 2020-04-10 10:34 | Outpatient (POV) | payer OTHER, SELFPAY | PROVIDERS: Visit Provider Dermatology | DX: Z00.00 Encounter for general adult medical examination without abnormal findings (principal) ==

== ENCOUNTER → 2020-04-20 07:38 | Outpatient (CLI) | payer OTHER, SELFPAY ==
[2020-04-21 09:35] LABS: Hepatitis B Surface Antigen Negative (Negative)
== END ==
PROVIDERS: Visit Provider Internal Medicine Nephrology
DX: N18.5 Chronic kidney disease, stage 5 (principal)
CPT/HCPCS: 36415; 87340

== ENCOUNTER → 2020-04-23 07:29 | Outpatient (CLI) | payer OTHER, SELFPAY ==
[2020-04-26 19:43] LABS: QuantiFERON-TB Gold Plus Negative (Negative)
== END ==
PROVIDERS: Visit Provider Internal Medicine Nephrology
DX: N18.5 Chronic kidney disease, stage 5 (principal)
CPT/HCPCS: 36415; 86480

== ENCOUNTER → 2020-05-16 07:09 | Outpatient (CLI) | payer OTHER, SELFPAY | PROVIDERS: Visit Provider Transplant Surgery | DX: Z76.82 Awaiting organ transplant status (principal) | CPT/HCPCS: 36415 ==

== ENCOUNTER 2020-05-19 10:11 | Emergency (ER) | payer OTHER, SELFPAY ==
[2020-05-19 10:28] VITALS: BP 147/96; PULSE 87; RESP 16; TEMP 36.9; O2SAT 100; BMI 19.2
--- NOTE | 2020-05-19 10:44 | HMH.EDUTC ---
[facility] [place] Disposition Clinical Impression: COVID-19 virus test result unknown Disposition: Home, Self-Care Condition on Discharge: Good Instructions: COVID-19: Testing and Tracing Additional Instructions: call back for results Referrals: Marcelo Reese MD [Primary Care Provider] - Time of Disposition: 10:46 Medical Decision Making - Regino Inquiry Pt receiving controlled substance: No Vital Signs: 05/19/20 10:28 Temperature 98.5 F Temperature Source Oral Pulse Rate [Right Brachial] 87 Respiratory Rate 16 Blood Pressure [Right Arm] 147/96 H Blood Pressure Mean [Right Arm] 113 Blood Pressure Source [Right Arm] Automatic Cuff Blood Pressure Position [Right Arm] Sitting 02 Sat by Pulse Oximetry 100 Oxygen Delivery Method Room Air Orders (Tests/Meds): ORDERS Category Date Time Status Covid-19 Nasal PCR ([facility]) Routine Lab 05/19/20 10:20 Received [facility] [place] HPI - General Chief complaint: Urgent Treatment Center Stated complaint: cov test Time Seen by Provider: 05/19/20 10:44 Mode of Arrival: Ambulatory Source of Information: Patient Limitations: No Limitations HEENT Symptoms (Recalled from RN notes): No Resp Symptoms (Recalled from RN notes): No Skin Symptoms (Recalled from RN notes): No MS Symptoms (Recalled from RN notes): No Functional Status (Recalled from RN notes): n/a - History of Present Illness Provider Complaint: 49 yr old female presents for a covid test. pt denies symptoms but is going to start dialysis and needs test prior to starting - Related Data Home Medications Medication Instructions Recorded Confirmed Amlodipine Besylate [Amlodipine 5 mg PO DAILY 07/28/18 05/19/20 5mg tab] Potassium Chloride [Klor-con 20 20 meq PO TID 07/28/18 05/19/20 mEq tablet] allopurinoL [Allopurinol 100mg 300 mg PO DAILY 07/28/18 05/19/20 tablet] carvediloL [Carvedilol 12.5mg Tab] 12.5 mg PO BID 07/28/18 05/19/20 Allergies Allergy/AdvReac Type Severity Reaction Status Date / Time Penicillins Allergy Intermediate Rash Verified 05/19/20 10:18 - Worker's Comp Is this a Worker's Comp case?: No [facility] History - Hepatitis A Screen Drug use history?: No High risk sexual behaviors?: No History of sexually transmitted infection?: No Currently employed?: No Childcare worker?: No Do you have indoor plumbing?: Yes Do you have electricity?: Yes Attestation statement:: This patient has been screened for Hepatitis A risk factors. I have reviewed the patient's past medical history: Yes Medical History: Reports:: Gastroesophageal Reflux Disease(GERD), Hypertension, Renal Disease (stage 4) Denies:: Diabetes Mellitus Type 1, Diabetes Mellitus Type 2, Internal Pacemaker, Lung Disease, Seizures Other Surgeries: Yes: Cholecystectomy. No: Pacemaker - Social History Smoking Status: Current every day smoker Tobacco Type: cigarettes, smokeless tobacco # Packs/Day (cigarettes): 1 Alcohol Intake: never Occupational Status: employed Housing: house Family Hx:: No significant family history ROS Obtained: Yes Systems reviewed as appropriate & no additional complaints - Constitutional Constitutional: Reports system reviewed and no additional complaints, except as docu, Denies fever(s) - Eyes Eyes: Reports system reviewed and no additional complaints, except as docu, Denies blurry vision - ENT Ears, Nose, Mouth, and Throat: Reports system reviewed and no additional complaints, except as docu, Denies otalgia - Cardiovascular Cardiovascular: Reports system reviewed and no additional complaints, except as docu, Denies pedal edema - Respiratory Respiratory: Reports system reviewed and no additional complaints, except as docu, Denies dyspnea - Gastrointestinal Gastrointestingal: Reports: system reviewed and no additional complaints, except as docu. Denies: change in stool character - Genitourinary Female Genitourinary: Reports system reviewed and no additional complaints, except as
[2020-05-19 10:50] VITALS: BP 147/96; PULSE 87; RESP 16; TEMP 36.9; O2SAT 100
== END 2020-05-19 10:51 | disposition home or self-care (01) ==
PROVIDERS: Emergency Provider Nurse Practitioner Family; PCP Family Medicine
DX: Z20.822 Contact with and (suspected) exposure to COVID-19 (principal); N18.4 Chronic kidney disease, stage 4 (severe)
CPT/HCPCS: 99202; G0463; U0003

== ENCOUNTER 2020-10-16 17:51 | Emergency (ER) | payer OTHER, SELFPAY ==
[2020-10-16 19:22] VITALS: PULSE 81; RESP 19; TEMP 36.5; O2SAT 98; BMI 19.2
[2020-10-16 19:29] VITALS: BP 136/82; PULSE 82; RESP 22; TEMP 36.5
--- NOTE | 2020-10-16 19:46 | HMH.EDUTC ---
[facility] [place] Disposition Clinical Impression: Exposure to COVID-19 virus Disposition: Home, Self-Care Condition on Discharge: Good Instructions: DI for COVID-19 (Suspected or Confirmed ), Preventing the Spread of Coronavirus Discharge Instructions Additional Instructions: Return if you begin to have difficulty breathing. Follow up with your regular doctor. Follow up with your transplant team. GO TO THE ER FOR ANY WORSENING SYMPTOMS Quarantine until you know the results of your covid-19 test. If it is positive, the health department should call you and give you further instructions about your length of Quarantine and other things. Notify your school or workplace of your results and follow their instructions regarding return to work/school. Referrals: Marcelo Reese MD [Primary Care Provider] - Time of Disposition: 19:50 Medical Decision Making - Medical Records Medical records reviewed: No: I reviewed the patient's medical records. - Regino Inquiry Pt receiving controlled substance: No Vital Signs: 10/16/20 19:22 10/16/20 19:29 Temperature 97.7 F 97.7 F Temperature Source Oral Oral Pulse Rate 82 Pulse Rate [Left] 81 Respiratory Rate 19 22 Blood Pressure 136/82 02 Sat by Pulse Oximetry 98 Orders (Tests/Meds): ORDERS Category Date Time Status Covid-19 Nasal PCR ([facility]) Routine Lab 10/16/20 19:15 Received [facility] [place] HPI - General Stated complaint: covid test Time Seen by Provider: 10/16/20 19:46 Mode of Arrival: Ambulatory Source of Information: Patient Limitations: No Limitations Description of Symptoms (Recalled from Triage Doc. by RN): pt was exposed to covid positve . HEENT Symptoms (Recalled from RN notes): No Resp Symptoms (Recalled from RN notes): No Skin Symptoms (Recalled from RN notes): No MS Symptoms (Recalled from RN notes): No Functional Status (Recalled from RN notes): na - History of Present Illness Provider Complaint: Her currently has covid-19 in her home. She is on the kidney transplant list at . She was told by her transplant team to get a covid test. - Related Data Home Medications Medication Instructions Recorded Confirmed Amlodipine Besylate [Amlodipine 5 mg PO DAILY 07/28/18 05/19/20 5mg tab] Potassium Chloride [Klor-con 20 20 meq PO TID 07/28/18 05/19/20 mEq tablet] allopurinoL [Allopurinol 100mg 300 mg PO DAILY 07/28/18 05/19/20 tablet] carvediloL [Carvedilol 12.5mg Tab] 12.5 mg PO BID 07/28/18 05/19/20 Allergies Allergy/AdvReac Type Severity Reaction Status Date / Time Penicillins Allergy Intermediate Rash Verified 05/19/20 10:18 - Worker's Comp Is this a Worker's Comp case?: No [facility] History - Hepatitis A Screen Drug use history?: No High risk sexual behaviors?: No History of sexually transmitted infection?: No Currently employed?: No Childcare worker?: No Do you have indoor plumbing?: Yes Do you have electricity?: Yes Attestation statement:: This patient has been screened for Hepatitis A risk factors. I have reviewed the patient's past medical history: Yes Medical History: Reports:: Gastroesophageal Reflux Disease(GERD), Hypertension, Renal Disease (stage 4) Denies:: Diabetes Mellitus Type 1, Diabetes Mellitus Type 2, Internal Pacemaker, Lung Disease, Seizures Other Surgeries: Yes: Cholecystectomy. No: Pacemaker - Social History Smoking Status: Current every day smoker Tobacco Type: cigarettes, smokeless tobacco # Packs/Day (cigarettes): 1 Alcohol Intake: never Occupational Status: employed Housing: house Family Hx:: No significant family history ROS Obtained: Yes All systems reviewed & no additional complaints - Constitutional Constitutional: Reports system reviewed and no additional complaints, except as docu - Eyes Eyes: Reports system reviewed and no additional complaints, except as docu - ENT Ears, Nose, Mouth, and Throat: Reports system reviewed and no additional complaints, e
== END 2020-10-16 19:56 | disposition home or self-care (01) ==
PROVIDERS: Emergency Provider Nurse Practitioner Family; PCP Family Medicine
DX: Z20.822 Contact with and (suspected) exposure to COVID-19 (principal)
CPT/HCPCS: 99202; G0463; U0003

== ENCOUNTER → 2020-11-16 07:48 | Outpatient (CLI) | payer OTHER, SELFPAY ==
--- NOTE | 2020-11-16 07:53 | MM_ITS ---
PROCEDURE INFORMATION: Exam: MG Bilateral Screening 3D Mammography Exam date and time: 11/16/2020 7:53 AM Age: 50 years old Clinical indication: Encounter for screening mammogram for malignant neoplasm of breast TECHNIQUE: Imaging protocol: Bilateral screening tomosynthesis and 2D mammography including computer-aided detection (CAD) when performed. COMPARISON: No relevant prior studies available. FINDINGS: MAMMOGRAPHY: Breast composition: The breast tissue is extremely dense, limiting the sensitivity of mammography. Mass: None. Architectural distortion: None. Calcifications: Clustered calcifications in the posterior third of the left upper outer quadrant Asymmetric density: None. Skin thickening: None. Axillary adenopathy: None. IMPRESSION: Patient to be recalled for spot magnification views of the left breast in the CC and MLO projections for further evaluation of left breast calcifications. ASSESSMENT: BI-RADS Category 0: Incomplete- Need Additional Imaging Evaluation and/or Prior Mammograms for Comparison
== END ==
PROVIDERS: PCP Family Medicine; Visit Provider Family Medicine
DX: Z12.31 Encounter for screening mammogram for malignant neoplasm of breast (principal)
CPT/HCPCS: 77063; 77067

== ENCOUNTER → 2020-12-20 07:30 | Outpatient (CLI) | payer OTHER, SELFPAY ==
[2020-12-21 07:11] LABS: Hepatitis B Surf Ab Quant <3.1 mIU/mL (Immunity>9.9)
== END ==
PROVIDERS: Visit Provider Surgery
DX: N18.6 End stage renal disease (principal)
CPT/HCPCS: 36415; 86706

== ENCOUNTER → 2020-12-27 07:21 | Outpatient (CLI) | payer OTHER, SELFPAY ==
[2020-12-28 09:25] LABS: Hep B Core Ab, Total Negative (Negative); Hep B Surface Ab, Qual Non Reactive (.); Hepatitis B Surface Antigen Negative (Negative)
[2020-12-28 22:18] LABS: HBV IU/mL HBV DNA not detected IU/mL (.)
== END ==
PROVIDERS: Visit Provider Surgery
DX: Z01.818 Encounter for other preprocedural examination (principal); Z94.0 Kidney transplant status
CPT/HCPCS: 36415; 86704; 86706; 87340; 87517

== ENCOUNTER → 2021-01-01 14:47 | Outpatient (CLI) | payer OTHER, SELFPAY ==
--- NOTE | 2021-01-01 14:51 | MM_ITS ---
PROCEDURE INFORMATION: Exam: MG Left Diagnostic Breast Tomosynthesis Exam date and time: 01/01/2021 2:51 PM Age: 50 years old Clinical indication: Callback for additional assessment calcifications in the left breast TECHNIQUE: Imaging protocol: Left Diagnostic tomosynthesis and 2D mammography including computer-aided detection (CAD) when performed. Unilateral or bilateral exam. COMPARISON: 1. MG MM DIG SCREENING MAMM BI W/CAD 11/16/2020 8:02 AM 2. MG MM DIG SCREENING MAMM BI W/CAD 11/15/2019 8:28 AM 3. MG MM DIG SCREENING MAMM BI W/CAD 10/27/2018 9:52 AM 4. MG [facility] MM Dig screening mamm BI w/CAD 08/21/2017 8:40 AM FINDINGS: The MAMMOGRAPHY: In the slightly upper outer far posterior left breast, about 8 cm from the nipple, there is a pleomorphic cluster of new calcifications spanning about 7 mm. No associated mass or architectural distortion is present. IMPRESSION: Stereotactic biopsy is recommended to definitively characterize a new cluster of indeterminate upper outer posterior left breast calcifications ASSESSMENT: BI-RADS category 4: Suspicious
== END ==
PROVIDERS: PCP Family Medicine; Visit Provider Nurse Practitioner Family
DX: R92.1 Mammographic calcification found on diagnostic imaging of breast (principal)
CPT/HCPCS: 77061; 77065; G0279

== ENCOUNTER → 2021-01-21 08:33 | Outpatient (CLI) | payer OTHER, SELFPAY ==
--- NOTE | 2021-01-21 08:37 | MM_ITS ---
PROCEDURE: MM STEREOTACTIC LOC LT MM CLIP PLACEMENT LEFT. MM SURGICAL SPECIMEN LEFT CLINICAL INDICATION: ABN LT MAMM Suspicious left breast calcifications TECHNIQUE: The patient was given 1 mg of Xanax, Lortab 5 mg, and analgesia and minor sedation. Informed consent was obtained and time-out procedure performed. The patient was placed on the stereotactic table and the abnormality was localized in the most appropriate projection. The left breast was prepped in the routine manner, with sterile prep and the overlying skin anesthetized. A 3 to 4 mm skin incision was performed and the 9 gauge sorus vacuum-assisted core biopsy needle was advanced to the region of the calcification. Pre- and post fire images were obtained. After adequate positioning relative to the calcifications was ensured, multiple biopsies were obtained in the region of the calcifications specifically. The core biopsies obtained were sent for specimen mammography. After the calcifications were indeed identified on the specimen mammogram, the procedure was terminated. The patient tolerated the procedure well without complications. Specimen was sent for pathologic analysis . A tiny titanium nonferromagnetic MicroMark was positioned through the mammotome needle into the biopsy site. Pathology: The florid proliferative breast disease, usual duct hyperplasia with calcifications. Negative for atypical hyperplasia or malignancy. IMPRESSION: 1. Successful stereotactic vacuum-assisted core biopsy of the breast calcifications. 2. Successful placement of a titanium metal MicroMark. 3. No noted complications. SPECIMEN RADIOGRAPH: The mammographically evident calcifications from the prior study are currently evident within the Sheeba dish and within the specimens obtained during mammotome procedure. This is considered an adequate specimen and the procedure was terminated. IMPRESSION: Successful removal of described breast calcifications. BREAST MAMMOGRAM: Compared to the prior study, the previously noted calcification have been removed. A small MicroMark clip was inserted into the region of the calcifications. There is evidence of soft tissue changes in the region of the biopsy was soft tissue gas and edema. 4. Adequate placement of the MicroMark clip postbiopsy. 5. Postbiopsy changes within the breast. Dictated by: John Lino MD 02/08/2021 09:30 John Lino MD in [place] 02/08/2021 09:30
== END ==
PROVIDERS: PCP Family Medicine; Visit Provider Family Medicine
DX: R92.1 Mammographic calcification found on diagnostic imaging of breast; R92.8 Other abnormal and inconclusive findings on diagnostic imaging of breast; D48.62 Neoplasm of uncertain behavior of left breast
CPT/HCPCS: 19081; 76098; 77065

== ENCOUNTER → 2021-06-25 08:21 | Outpatient (POV) | payer OTHER, SELFPAY | PROVIDERS: Visit Provider Dermatology | DX: Z00.00 Encounter for general adult medical examination without abnormal findings (principal) ==

== ENCOUNTER → 2021-10-30 07:11 | Outpatient (CLI) | payer BC, SELFPAY | PROVIDERS: PCP Family Medicine; Visit Provider Surgery | DX: Z01.812 Encounter for preprocedural laboratory examination (principal); Z20.822 Contact with and (suspected) exposure to COVID-19 | CPT/HCPCS: C9803; U0003; U0005 ==

== ENCOUNTER 2021-11-01 08:27 | Day surgery (SDC) | payer BC, SELFPAY ==
[2021-10-29 13:24] VITALS: BMI 15.5
[2021-11-01] VITALS (8 sets, daily range): BP systolic 79–128; BP diastolic 54–79; PULSE 66–83; RESP 16–18; TEMP 36.2–36.4; O2SAT 95–99
--- NOTE | 2021-11-01 09:28 | P.PN_ITS ---
[facility] Medical History History of peritoneal dialysis History of renal failure Surgical History History of cholecystectomy Family History Other Colon cancer Family history of cancer Social History Smoking Status: Current every day smoker tobacco type: cigarettes packs per day: 1 and smokeless tobacco alcohol intake: never substance use type: denies use current occupational status: employed Travel in the last 8 weeks: None housing: house caffeine: Yes [facility] Anesthesia Checklist Patient Identification Patient Identification: Arm Band Structural Data Admitted From: Home Planned Operative Procedure/s: Colonoscopy Consent for Planned Operative Procedure(s) Verified: Yes NPO Status Verified Time NPO: 05:00 Chart Verification Results Verified: CBC and BMP Additional verifications Anesthesia Reactions: No Airway Assessment C-Spine Mobility Assessed: Yes TMJ Mobility Assessed: Yes Dentition: Good Dentition Neurological Assessment Level of Consciousness: Awake Hx Seizures: No Numbness or tingling in extremities: No Anesthesia Plan Anesthesia Risk discussed: Yes Anesthesia Plan: Verified ASA Class: III Anesthesia Type: MAC
[2021-11-01 09:39] LABS: HCG Qualitative, Serum Negative (Negative)
--- NOTE | 2021-11-01 10:31 | HMH.SCOPE ---
Procedure: Date: 11/01/21 Patient Date of :: 1970 Procedure Performed:: Colonoscopy with polypectomy using biopsy forceps Indications:: Patient is a 51-year-old female with history of renal failure receiving peritoneal dialysis. She states that transplant program requested colonoscopy. She did have previous colonoscopy in [address] Sarkis Carrington and was found to have several 9 to 12 mm tubular adenomas in the transverse and descending colon. He has had recommended a 3-year follow-up colonoscopy Performing Provider:: Yariel Carmichael MD Referring Provider:: Marcelo Reese MD Sedation:: MAC sedation Procedure:: Patient was taken to endoscopy procedure room. She was positioned in lateral decubitus position. Adequate intravenous sedation was achieved. Digital examination was performed which was unremarkable. Variable stiffness Olympus colonoscope was inserted via the anus. It was advanced to the cecum. Colonic preparation was fair. Ileocecal valve and appendiceal orifice were identified. There was a very tiny diminutive polyp in the cecum which was removed with cold biopsy forceps. There was some minor oozing, likely secondary to renal failure, and to assure hemostasis Hemoclip was deployed. Colonoscope was withdrawn through the colon with careful surveillance with thorough irrigation and suctioning. In the descending colon there was a tiny diminutive polyp removed with biopsy forceps. Immediately distal to this at approximately 65 cm from the anal verge there was some mucosal irregularity. This did not appear to necessarily be adenomatous. However, multiple biopsies were obtained to assess for adenomatous change as this will subtle and somewhat of a widespread area along mucosal fold. Yun ink was injected at the site submucosally to ren the area in the event of need for future intervention. Colonoscope was withdrawn through the remainder of the colon. Retroflexion was performed within the rectum which revealed minor internal hemorrhoids. Colonoscope was withdrawn. Findings:: Very tiny subtle diminutive polyp in the cecum and descending colon Subtle mucosal irregularity in the ascending colon, biopsied, area marked with Yun ink Recommendations:: If the biopsies of the area in the descending colon are positive for adenomatous change likely will need early follow-up colonoscopy, possibly at [facility] with submucosal polypectomy. However, if these biopsies are non-adenomatous likely repeat colonoscopy 5 years. Complications:: None immediately apparent Estimated blood obtained (mL): 1
== END 2021-11-01 12:05 | disposition home or self-care (01) ==
PROVIDERS: PCP Family Medicine; Visit Provider Surgery
PROC: 0DJD8ZZ Inspection of Lower Intestinal Tract, Via Natural or Artificial Opening Endoscopic (ICD-10-PCS; CPT 45380; principal; 2021-11-01 09:30)
DX: Z12.11 Encounter for screening for malignant neoplasm of colon (principal); K63.5 Polyp of colon; Z79.899 Other long term (current) drug therapy; Z72.0 Tobacco use
CPT/HCPCS: 45380; 84703; 88305; J2704

== ENCOUNTER → 2021-12-26 10:54 | Outpatient (CLI) | payer BC, SELFPAY ==
--- NOTE | 2021-12-26 10:56 | MM_ITS ---
PROCEDURE INFORMATION: Exam: MG Bilateral Screening 3D Mammography Exam date and time: 12/26/2021 10:48 AM Age: 51 years old Clinical indication: Screening examination TECHNIQUE: Imaging protocol: Bilateral Screening tomosynthesis and 2D mammography including computer-aided detection (CAD) when performed. COMPARISON: 1. MG MM CLIP PLACEMENT LT 01/21/2021 10:42 AM 2. MG MM SURGICAL SPECIMEN LT 01/21/2021 10:17 AM FINDINGS: MAMMOGRAPHY: Breast composition: The breasts are extremely dense, which lowers the sensitivity of mammography. Mass: None. Architectural distortion: None. Calcifications: No suspicious calcifications. Asymmetric density: None. Skin thickening: None. Axillary adenopathy: None. IMPRESSION: No mammographic evidence of malignancy. Annual screening is recommended unless otherwise clinically indicated. ASSESSMENT: BI-RADS Category 1: Negative
== END ==
PROVIDERS: PCP Family Medicine; Visit Provider Family Medicine
DX: Z12.31 Encounter for screening mammogram for malignant neoplasm of breast (principal)
CPT/HCPCS: 77063; 77067

== ENCOUNTER → 2022-02-12 07:19 | Outpatient (CLI) | payer BC, SELFPAY ==
[2022-02-12 07:23] LABS: Microscopic, Urine URINE MICROSCOPIC (MICROSCOPIC)
[2022-02-12 07:33] LABS: Basophils # 0.1 K/mm3 (0-0.2); Basophils % 0.8 % (0.1-2.0); Eosinophils # 0.3 K/mm3 (0.0-0.4); Eosinophils % 3.1 % (0.1-12.0); Hematocrit 33.5 % (37.0-47.0); Hemoglobin 10.5 g/dL (12.2-16.2); Lymphocytes # 1.2 K/mm3 (0.7-4.5); Lymphocytes % 11.2 % (10-50); Mean Corpuscular HGB Conc 31.4 g/dL (31.8-35.4); Mean Corpuscular Hemoglobin 31.4 pg (27.0-31.2); Mean Platelet Volume 7.3 fl (7.4-10.4); Monocytes # 0.8 K/mm3 (0.1-1.0); Monocytes % 7.7 % (1.7-9.3); Neutrophils # 8.1 K/mm3 (1.8-7.8); Neutrophils % 77.2 % (37.0-80.0); Platelet Count 713 K/mm3 (142-424); Red Blood Count 3.35 M/mm3 (4.20-5.40); Red Cell Distribution Width 12.5 % (11.5-17.5); White Blood Count 10.4 K/mm3 (4.8-10.8)
[2022-02-12 07:55] LABS: Appearance,Urine SL CLOUDY (Clear); Blood, Urine 2+ (Negative); Color,Urine YELLOW (Yellow); Glucose,Urine (UA) Negative (Negative); Ketones,Urine Negative (Negative); Leukocyte Esterase,Urine 2+ (Negative); Nitrate,Urine Negative (Negative); PH,Urine 8.5 (5.0-8.5); Protein,Urine 2+ (Negative); Urobilinogen,Urine 0.2 EU/dl (0.2)
[2022-02-12 07:57] LABS: Bilirubin,Urine 1+ (Negative)
[2022-02-12 08:00] LABS: Bacteria,Urine Trace /lpf
[2022-02-12 08:22] LABS: Chloride 88 mmol/L (98-107)
[2022-02-12 08:23] LABS: Potassium 3.8 mmoL/L (3.5-5.1); Sodium 133 mmol/L (136-145)
[2022-02-12 08:25] LABS: Alanine Aminotransferase 13 U/L (12-78); Aspartate Amino Transferase 23 U/L (14-36); Blood Urea Nitrogen 54 mg/dl (7-17); Estimated Glomerular Filt Rate 6 ml/min (>60); GFR (African American) 7 ML/MIN (>60)
[2022-02-12 08:26] LABS: Albumin Level 2.4 g/dl (3.5-5.0); Alkaline Phosphatase 116 U/L (38-126); Bilirubin,Total 0.2 mg/dl (0.2-1.3); Calcium 7.5 mg/dl (8.4-10.2); Globulin 2.5 g/dL (1.3-3.2); Glucose 88 mg/dl (74-100); Total Protein,Serum 4.9 g/dl (6.3-8.2)
[2022-02-12 08:42] LABS: Anion Gap 7.8 mEq/L (5-15); Carbon Dioxide 41 mmol/L (22.0-30.0)
== END ==
PROVIDERS: PCP Family Medicine; Visit Provider Orthopaedic Surgery
DX: Z01.818 Encounter for other preprocedural examination (principal); M71.321 Other bursal cyst, right elbow
CPT/HCPCS: 36415; 80053; 81001; 85025; 87086

== ENCOUNTER 2022-02-17 10:17 | Day surgery (SDC) | payer BC, SELFPAY ==
[2022-02-13 10:47] VITALS: BMI 15.5
[2022-02-17] VITALS (10 sets, daily range): BP systolic 114–144; BP diastolic 49–86; PULSE 76–94; RESP 12–18; TEMP 36.4–36.7; O2SAT 93–98
[2022-02-17 10:40] LABS: Urine Pregnancy, HCG Qual. Negative (Negative)
--- NOTE | 2022-02-17 13:03 | EXP.OP.NOTE ---
Date of procedure: 02/17/22 Pre-op Diagnosis:: Soft tissue mass right Post-op Diagnosis:: Same Procedure performed:: Excision soft tissue mass right elbow Surgeon:: Massimo Garcia DO ALL SOURCE ANALYST:: Rajendra Roa Anesthesia: GETA Estimated blood loss (mL): 0 Clinical Note:: 51-year-old female with slow-growing soft tissue mass on the right elbow dorsal surface just distal to the olecranon. Operative findings:: Soft tissue mass right elbow Operative note:: Patient notified preoperatively right elbow marked yes my initials transported operative suite placed upon operating bed. General anesthesia ministered. Airway secured. Right upper extremity prepped draped normal sterile fashion. Once prepped and draped final operative timeout performed to identify proper patient procedure and extremity. Everyone involved in the case agreed. There were no counter indications to beginning. Did receive preoperative antibiotics. Marking pen was used to ren plan incision around the soft tissue mass of the elbow. Tourniquet was inflated 200 mmHg. Skin knife was used to incise the skin careful dissection taken down with the scissors to identify soft tissue mass at the right elbow. This was superficial in nature and somewhat adherent to the skin. Did not have encapsulated margins like a lipoma careful dissection with the scissors down to remove the mass in its entirety. Passed to the back table for pathology. Copious irrigation of wound performed. Tourniquet deflated. Hemostasis obtained electrocautery bipolar. Skin closed with nylon stitch. Sterile elbow dressing was placed. Patient awakened from anesthesia taken recovery stable condition. Tourniquet time (min): 17 Condition: stable Disposition: PACU Complications:: None apparent
--- NOTE | 2022-02-17 13:14 | EXP.ANES.CKL ---
[facility] Disclaimer: The information contained in this section may have been updated after the patient was seen, as this information can be updated by other users. Medical History (Updated 02/17/22 @ 10:58 by Kait Marrero RN) Anorexia History of peritoneal dialysis History of renal failure Peritoneal dialysis catheter in place Surgical History History of cholecystectomy History of colonoscopy Family History Other Colon cancer Family history of cancer Social History Smoking Status: Current every day smoker tobacco type: cigarettes packs per day: 1 and smokeless tobacco alcohol intake: never substance use type: denies use current occupational status: employed Travel in the last 8 weeks: None housing: house caffeine: Yes [facility] Anesthesia Checklist Patient Identification Patient Identification: Verbal (Name & ) Structural Data Admitted From: Home Planned Operative Procedure/s: excision neoplasm r elbow Consent for Planned Operative Procedure(s) Verified: Yes Additional verifications Anesthesia Reactions: No Hx Blood Transfusions: No Blood Transfusion Reaction: No Airway Assessment C-Spine Mobility Assessed: Yes TMJ Mobility Assessed: Yes Dentition: Poor Dentition Neurological Assessment Level of Consciousness: Awake, Alert and Appropriate Anesthesia Plan Anesthesia Risk discussed: Yes Anesthesia Plan: Verified ASA Class: III Anesthesia Type: General
--- NOTE | 2022-02-17 13:15 | P.PNANES_ITS ---
[facility] Anesthesia Record Part I Anesthesia Record I Intake, IV Amount: 400 Estimated blood loss (mL): 0 Urine output (mL): 0 Blood Pressure: 144/86 SaO2: 94 Pulse Rate: 84 Respiratory Rate: 12 Temperature: 98 F Patient is:: Awake and Stable Stable to PACU at:: 13:10
--- NOTE | 2022-02-21 11:26 | P.PNANES_ITS ---
[facility] Anesthesia Record Part II Anesthesia Record Part II Discharge Time: 13:49 Destination: Surgical Day Care (OP Surgery) PACU nurse assessment reviewed?: Yes Patient Condition:: Good Anesthesia Complications:: None Swallowing reflex intact?: Yes Cyanosis?: No Blood Pressure: 124/75 Pulse Rate: 87 Temperature: 97.6 F Mental Status: Alert & Oriented Pain level:: 0 Nausea and/or vomitting:: None Intake, IV Amount: 0
[2022-02-21 11:33] VITALS: BP 124/75; PULSE 87; TEMP 36.4
== END 2022-02-17 14:20 | disposition home or self-care (01) ==
PROVIDERS: PCP Family Medicine; Visit Provider Orthopaedic Surgery
PROC: (CPT 24075; principal; 2022-02-17 11:45)
DX: D23.61 Other benign neoplasm of skin of right upper limb, including shoulder (principal); R22.31 Localized swelling, mass and lump, right upper limb
CPT/HCPCS: 24075; 81025; 88305; 96374

== ENCOUNTER → 2022-04-01 15:31 | Outpatient (CLI) | payer BC, SELFPAY ==
--- NOTE | 2022-04-01 15:39 | XR_ITS ---
FINAL REPORT CLINICAL HISTORY: GENERALIZED ABDOMINAL PAIN FINDINGS: A single view of the abdomen was obtained. There is a nonobstructive bowel gas pattern. There are no abnormally dilated loops of small bowel. There is a moderate-large amount of retained stool. There are postoperative changes in the right upper quadrant. There is a presumed peritoneal dialysis catheter. IMPRESSION: 1. Nonobstructive bowel gas pattern. 2. Moderate-large amount of retained stool. Reviewed, Interpreted and Dictated by Yariel Dickinson III, MD Transcribed by Rosalie Pineda Authenticated and [facility]
== END ==
PROVIDERS: PCP Family Medicine; Visit Provider Internal Medicine Nephrology
DX: R10.84 Generalized abdominal pain (principal)
CPT/HCPCS: 74018

== ENCOUNTER 2022-05-03 10:50 | Emergency (ER) | payer BC, MEDICARE, SELFPAY ==
[2022-05-03 10:50] VITALS: BP 159/102; PULSE 100; RESP 13; TEMP 36.4; O2SAT 96; BMI 14.6
--- NOTE | 2022-05-03 10:57 | XR_ITS ---
PROCEDURE INFORMATION: Exam: XR Chest Exam date and time: 05/03/2022 11:29 AM Age: 51 years old Clinical indication: Other: AMS TECHNIQUE: Imaging protocol: Radiologic exam of the chest. Views: 1 view. COMPARISON: CR XR KUB 04/01/2022 3:48 PM FINDINGS: Tubes, catheters and devices: Julissa catheter right chest with tip in the right atrium. Lungs: No evidence of acute pulmonary process. Pleural spaces: Unremarkable. No pleural effusion. No pneumothorax. Heart/Mediastinum: Unremarkable. No cardiomegaly. Bones/joints: Unremarkable. IMPRESSION: No evidence of acute pulmonary process.
--- NOTE | 2022-05-03 10:57 | CT_ITS ---
PROCEDURE INFORMATION: Exam: CT Head Without Contrast Exam date and time: 05/03/2022 11:13 AM Age: 51 years old Clinical indication: Altered mental status/memory loss; Additional info: AMS TECHNIQUE: Imaging protocol: Computed tomography of the head without contrast. Radiation optimization: All CT scans at this facility use at least one of these dose optimization techniques: automated exposure control; mA and/or kV adjustment per patient size (includes targeted exams where dose is matched to clinical indication); or iterative reconstruction. REPORTING DATA: Count of CT and Cardiac NM exams in prior 12 months: This patient has received 0 known CTs and 0 known cardiac nuclear medicine studies in the 12 months prior to the current study. COMPARISON: No relevant prior studies available. FINDINGS: Brain: Normal. No hemorrhage. Unremarkable white matter. No mass effect. Cerebral ventricles: No ventriculomegaly. Paranasal sinuses: Partial opacification of the frontal sinus. Mastoid air cells: Visualized mastoid air cells are well aerated. Bones/joints: Unremarkable. No acute fracture. Soft tissues: Unremarkable. IMPRESSION: Partial opacification of the frontal sinus but no evidence of acute intracranial pathology.
--- NOTE | 2022-05-03 10:59 | HMH.EDGENADL ---
Discharge Plan Disposition Patient Disposition: Home, Self-Care Condition: Fair Prescriptions Prescriptions: No Action allopurinol 100 MG tablet 300 mg PO DAILY potassium chloride 20 MEQ tablet 20 meq PO TID calcitriol 0.5 mcg Capsule 0.5 mcg PO DAILY Referrals Follow up/Referrals: Horace Cam MD [Staff Physician] - See instructions Clinical Impressions Clinical Impression: Transient alteration of awareness Instructions Patient Instructions: DI for Altered Mental Status Discharge ED Provider: Barney Carrasquillo General Adult HPI General Chief complaint: Altered Mental Status Stated complaint: synocpe Time Seen by Provider: 05/03/22 10:59 History of Present Illness HPI narrative: Patient is a 51-year-old female with a past medical history of end-stage renal disease who presents with concern for altered mental status. History mainly obtained from EMS and family member at bedside. Reported that she was minimally responsive this morning and found facedown in the bathtub this morning by her . He called EMS who came and brought her here for evaluation. She did not miss dialysis on Thursday. She denies any fever or chills. She says that she is confused. Denies any recent illnesses. No chest or abdominal pain. Related Data Home Medications Medication Instructions Recorded Confirmed allopurinol 100 mg tablet 300 mg PO DAILY gout 07/28/18 03/11/22 potassium chloride 20 mEq 20 meq PO TID Supplement 07/28/18 03/11/22 tablet,extended release(part/cryst) calcitriol 0.5 mcg capsule 0.5 mcg PO DAILY Supplement 11/01/21 03/11/22 Allergies Allergy/AdvReac Type Severity Reaction Status Date / Time Penicillins Allergy Intermediate Rash Verified 03/11/22 09:31 [facility] Disclaimer: The information contained in this section may have been updated after the patient was seen, as this information can be updated by other users. Medical History Anorexia History of peritoneal dialysis History of renal failure Peritoneal dialysis catheter in place Surgical History History of cholecystectomy History of colonoscopy Family History Other Colon cancer Family history of cancer Social History Smoking Status: Never smoker alcohol intake: never substance use type: denies use current occupational status: employed Travel in the last 8 weeks: None housing: house caffeine: Yes ROS Obtained: Yes All systems reviewed & no additional complaints except as documented Physical Exam General General appearance: alert and in no apparent distress Head Head exam: atraumatic, normocephalic and normal inspection Eye Eye exam: Present normal appearance and PERRL ENT ENT exam: Present normal exam, mucous membranes moist and normal external ear exam Neck Neck exam: Present normal inspection and trachea midline Chest Chest inspection: Present normal inspection and symmetric chest wall rise Respiratory Respiratory exam: Present normal lung sounds bilaterally; Absent respiratory distress Cardiovascular Cardiovascular exam: Present regular rate, normal rhythm and other (Right-sided tunneled dialysis catheter in place) Abdominal Exam Abdominal exam: Present soft; Absent distention, tenderness or guarding Extremities Exam Extremities exam: Present normal inspection; Absent edema Neurological Exam Neurological exam: Present alert; Absent oriented X3 (AO x2) or motor sensory deficit Psychiatric Psychiatric exam: Present normal affect and normal mood Skin Skin exam: Present warm, dry, intact and normal color Medical Decision Making Medical Records Medical records reviewed: Yes I reviewed the patient's medical records. Regino Inquiry Pt receiving controlled substance: No
[2022-05-03 11:00] VITALS: BP 145/103; PULSE 97; RESP 12; O2SAT 97
--- NOTE | 2022-05-03 11:11 | PC.NURSE ---
Neuro exam right pupil 1.5 mm left pupil 3mm. Brisk reactive to light. GCS of 14 A&Ox2 no further neuro deficits.
[2022-05-03 11:30] VITALS: BP 153/90; PULSE 88; RESP 15; O2SAT 97
--- NOTE | 2022-05-03 11:48 | PC.NURSE ---
Patient sleeping on her left side O2 76% room air. Patient awakened easily with improvement of O2 97% room air. 2L nasal cannula applied while patient sleeps.
--- NOTE | 2022-05-03 11:48 | ECG_ITS ---
APPROVED REPORT Exam: Resting ECG HR:79 bpm ECG Measurements Heart Rate 79 AXES [place] 162 P 73 QRSd 81 QRS 58 QT 443 T 82 QTc 478 Conclusion SINUS RHYTHM LEFT ATRIal abnormalty MINIMAL ST DEPRESSION [0.025+ mV ST DEPRESSION] PROLONGED QT INTERVAL ABNORMAL ECG UNCONFIRMED REPORT Electronically signed by : Rajiv Mederos MD 05/03/2022 20:25:53
[2022-05-03 11:51] LABS: Basophils # 0.1 K/mm3 (0-0.2); Basophils % 0.9 % (0.1-2.0); Eosinophils # 0.3 K/mm3 (0.0-0.4); Eosinophils % 3.2 % (0.1-12.0); Hematocrit 36.3 % (37.0-47.0); Hemoglobin 11.4 g/dL (12.2-16.2); Lymphocytes # 0.9 K/mm3 (0.7-4.5); Lymphocytes % 10.1 % (10-50); Mean Corpuscular HGB Conc 31.4 g/dL (31.8-35.4); Mean Corpuscular Hemoglobin 29.2 pg (27.0-31.2); Mean Corpuscular Volume 92.8 fl (81-99); Mean Platelet Volume 8.4 fl (7.4-10.4); Monocytes # 0.5 K/mm3 (0.1-1.0); Monocytes % 6.4 % (1.7-9.3); Neutrophils # 6.6 K/mm3 (1.8-7.8); Neutrophils % 79.4 % (37.0-80.0); Platelet Count 345 K/mm3 (142-424); Red Blood Count 3.91 M/mm3 (4.20-5.40); Red Cell Distribution Width 14.6 % (11.5-17.5); White Blood Count 8.3 K/mm3 (4.8-10.8)
[2022-05-03 11:54] LABS: VBG Base Excess 17.7 mmol/L (-2.4-2.3); VBG HCO3 41.5 mmol/L (23-30); VBG Oxygen Saturation 90.8 % (50-70); VBG PH 7.46 mmol/L (7.31-7.41); VBG Total CO2 43.3 mmol/L (23-27)
[2022-05-03 11:56] LABS: Alanine Aminotransferase 17 U/L (12-78); Albumin Level 3.4 g/dl (3.5-5.0); Alkaline Phosphatase 148 U/L (38-126); Aspartate Amino Transferase 32 U/L (14-36); Bilirubin,Total 0.6 mg/dl (0.2-1.3); Blood Urea Nitrogen 39 mg/dl (7-17); Calcium 7.4 mg/dl (8.4-10.2); Chloride 79 mmol/L (98-107); Creatinine Clearance Estimated 4 mL/min (50-200); Estimated Glomerular Filt Rate 5 ml/min (>60); GFR (African American) 6 ML/MIN (>60); Globulin 3.4 g/dL (1.3-3.2); Glucose 124 mg/dl (74-100); Magnesium 3.6 mg/dl (1.6-2.3); Phosphorous 9.5 mg/dl (2.5-4.5); Potassium 4.1 mmoL/L (3.5-5.1); Sodium 133 mmol/L (136-145); Total Protein,Serum 6.8 g/dl (6.3-8.2)
[2022-05-03 11:57] LABS: VBG PCO2 59.5 mmol/L (35-51)
[2022-05-03 12:00] LABS: C-Reactive Protein 1.5 mg/L (0-4)
[2022-05-03 12:06] LABS: Anion Gap 15.1 mEq/L (5-15); Carbon Dioxide 43 mmol/L (22.0-30.0)
[2022-05-03 12:43] VITALS: BP 147/92; PULSE 76; RESP 10; TEMP 36.4; O2SAT 99
== END 2022-05-03 12:45 | disposition home or self-care (01) ==
PROVIDERS: Emergency Provider Student in an Organized Health Care Education/Training Program; PCP Family Medicine
DX: R41.82 Altered mental status, unspecified (principal)
CPT/HCPCS: 70450; 71045; 80053; 82803; 83735; 84100; 84145; 85025; 86140; 93005; 96374; 99285; J2405

== ENCOUNTER → 2022-07-24 06:59 | Outpatient (CLI) | payer BC, MEDICARE, SELFPAY ==
[2022-07-25 16:13] LABS: Endomysial IgA Antibody Positive (Negative); Immunoglobulin A, Qn 210 mg/dL (87-352); Tissue Transglutaminase IgA Ab 79 U/mL (0-3)
== END ==
PROVIDERS: PCP Family Medicine; Visit Provider Internal Medicine Nephrology
DX: R11.2 Nausea with vomiting, unspecified (principal)
CPT/HCPCS: 36415; 82784; 83516; 86255

== ENCOUNTER → 2022-09-30 08:21 | Outpatient (POV) | payer BC, MEDICARE, SELFPAY | PROVIDERS: Visit Provider Dermatology | DX: Z00.00 Encounter for general adult medical examination without abnormal findings (principal) ==

== ENCOUNTER → 2023-01-16 15:48 | Outpatient (CLI) | payer MEDICARE, BC, SELFPAY ==
--- NOTE | 2023-01-16 15:53 | XR_ITS ---
PROCEDURE INFORMATION: Exam: XR Chest Exam date and time: 01/16/2023 3:55 PM Age: 52 years old Clinical indication: Dyspnea; Additional info: Pneumonia of right lower lobe TECHNIQUE: Imaging protocol: Radiologic exam of the chest. Views: 2 views. COMPARISON: CR XR CHEST PORTABLE 05/03/2022 11:29 AM FINDINGS: Lungs: Opacities in both bases may represent atelectasis or pneumonia.. Pleural spaces: Unremarkable. No pleural effusion. No pneumothorax. Heart/Mediastinum: Unremarkable. No cardiomegaly. Bones/joints: Unremarkable. Intraperitoneal space: Surgical clips in the upper abdomen IMPRESSION: Opacities in both bases may represent atelectasis or pneumonia..
== END ==
PROVIDERS: PCP Physician Assistant; Visit Provider Physician Assistant
DX: J18.9 Pneumonia, unspecified organism (principal); Z72.0 Tobacco use
CPT/HCPCS: 71046

== ENCOUNTER → 2023-01-23 11:03 | Outpatient (CLI) | payer MEDICARE, BC, SELFPAY ==
--- NOTE | 2023-01-23 11:07 | XR_ITS ---
FINAL REPORT CLINICAL HISTORY: PNEUMONIA COMPARISON: 01/16/2023 FINDINGS: 2 views of the chest were obtained . The heart is normal in size. The mediastinum is within normal limits. There is dense right base airspace disease which may represent pneumonia or aspiration. There is no pneumothorax. Osseous structures are unremarkable. IMPRESSION: Dense right base airspace disease which may represent pneumonia or aspiration. Reviewed, Interpreted and Dictated by Alexy Gerard MD Transcribed by Kimberly Brody Authenticated and . [facility]
== END ==
PROVIDERS: PCP Physician Assistant; Visit Provider Physician Assistant
DX: J18.9 Pneumonia, unspecified organism (principal); Z72.0 Tobacco use
CPT/HCPCS: 71046

== ENCOUNTER → 2023-01-27 13:16 | Outpatient (CLI) | payer BC, MEDICARE, SELFPAY | LOC: LAB.DROPOF 13:19 | PROVIDERS: PCP Physician Assistant; Visit Provider Physician Assistant | DX: J18.9 Pneumonia, unspecified organism (principal); B96.89 Other specified bacterial agents as the cause of diseases classified elsewhere; B37.9 Candidiasis, unspecified | CPT/HCPCS: 87070; 87205 ==

== ENCOUNTER 2023-03-06 08:37 | Outpatient (CLI) | payer MEDICARE, BC, SELFPAY ==
[2023-03-06 08:56] LABS: Basophils # 0.1 K/mm3 (0-0.2); Eosinophils # 0.3 K/mm3 (0.0-0.4); Eosinophils % 5.7 % (0.1-12.0); Hematocrit 33.2 % (37.0-47.0); Hemoglobin 10.8 g/dL (12.2-16.2); Lymphocytes # 0.8 K/mm3 (0.7-4.5); Lymphocytes % 13.4 % (10-50); Mean Corpuscular HGB Conc 32.7 g/dL (31.8-35.4); Mean Corpuscular Hemoglobin 31.7 pg (27.0-31.2); Mean Corpuscular Volume 97.1 fl (81-99); Mean Platelet Volume 7.9 fl (7.4-10.4); Monocytes # 0.4 K/mm3 (0.1-1.0); Monocytes % 7.2 % (1.7-9.3); Neutrophils # 4.3 K/mm3 (1.8-7.8); Neutrophils % 71.8 % (37.0-80.0); Platelet Count 305 K/mm3 (142-424); Red Blood Count 3.42 M/mm3 (4.20-5.40); Red Cell Distribution Width 15.3 % (11.5-17.5)
[2023-03-06 09:05] LABS: INR 1.01 (0.9-1.1); Prothrombin Time 10.9 seconds (10.1-12.5)
[2023-03-06 09:49] LABS: Anion Gap 18.1 mEq/L (5-15); Blood Urea Nitrogen 47 mg/dl (7-17); Carbon Dioxide 26 mmol/L (22.0-30.0); Chloride 97 mmol/L (98-107); Estimated Glomerular Filt Rate 5 ml/min (>60); GFR (African American) 6 ML/MIN (>60); Glucose 85 mg/dl (74-100); Potassium 5.1 mmoL/L (3.5-5.1); Sodium 136 mmol/L (136-145)
== END 2023-03-06 23:59 | disposition home or self-care (01) ==
PROVIDERS: PCP Physician Assistant; Visit Provider Internal Medicine
DX: Z01.818 Encounter for other preprocedural examination (principal)
CPT/HCPCS: 36415; 80048; 85025; 85610

== ENCOUNTER 2023-08-07 07:45 | Outpatient (CLI) | payer MEDICARE, BC, SELFPAY ==
--- NOTE | 2023-08-07 07:50 | MM_ITS ---
PROCEDURE INFORMATION: Exam: MG Bilateral Screening 3D Mammography Exam date and time: 08/07/2023 7:53 AM Age: 52 years old Clinical indication: Screening examination TECHNIQUE: Imaging protocol: Bilateral Screening tomosynthesis and 2D mammography including computer-aided detection (CAD) when performed. COMPARISON: 1. MG MM DIG SCREENING MAMM BI W/CAD 12/26/2021 10:48 AM 2. MG MM CLIP PLACEMENT LT 01/21/2021 10:42 AM FINDINGS: MAMMOGRAPHY: Breast composition: The breasts are heterogeneously dense, which may obscure small masses. Mass: None. Architectural distortion: None. Calcifications: No suspicious calcifications. Asymmetric density: None. Skin thickening: None. Axillary adenopathy: None. IMPRESSION: No mammographic evidence of malignancy. Annual screening is recommended unless otherwise clinically indicated. ASSESSMENT: BI-RADS Category 1: Negative
--- NOTE | 2023-08-07 07:50 | XR_ITS ---
FINAL REPORT CLINICAL HISTORY: PRE TRANS PLANT EVAL,ANEMIA,HYPERPARATHYROIDISM FINDINGS: No acute pulmonary density is evident. There is no evidence of effusion or other pleural disease. The mediastinum has a normal appearance. The cardiac silhouette is unremarkable. IMPRESSION: Unremarkable chest exam. Reviewed, Interpreted and Dictated by Toyin Santos MD Transcribed by Mimi Gillis Authenticated and [facility]
== END 2023-08-07 23:59 | disposition home or self-care (01) ==
LOC: RAD 07:45
PROVIDERS: PCP Family Medicine; Visit Provider Family Medicine
DX: Z01.818 Encounter for other preprocedural examination (principal); I15.1 Hypertension secondary to other renal disorders; N28.89 Other specified disorders of kidney and ureter; N25.81 Secondary hyperparathyroidism of renal origin; C44.92 Squamous cell carcinoma of skin, unspecified; N18.6 End stage renal disease; D64.9 Anemia, unspecified; R63.0 Anorexia; Z68.1 Body mass index [BMI] 19.9 or less, adult; Z12.31 Encounter for screening mammogram for malignant neoplasm of breast
CPT/HCPCS: 71046; 77063; 77067

== ENCOUNTER 2023-08-11 15:31 | Outpatient (POV) | payer MEDICARE, BC, SELFPAY | END 2023-08-11 23:59 | disposition home or self-care (01) | LOC: SC 15:32 | PROVIDERS: PCP Physician Assistant; Visit Provider Dermatology | DX: Z00.00 Encounter for general adult medical examination without abnormal findings (principal) ==

== ENCOUNTER 2023-09-05 21:44 | Emergency (ER) | payer MEDICARE, BC, SELFPAY ==
[2023-09-05 21:45] VITALS: BP 180/91; PULSE 71; RESP 18; TEMP 37.5; O2SAT 97; BMI 18.3
[2023-09-05 22:23] LABS: Basophils # 0.1 K/mm3 (0-0.2); Basophils % 1.7 % (0.1-2.0); Eosinophils # 0.1 K/mm3 (0.0-0.4); Eosinophils % 1.2 % (0.1-12.0); Hemoglobin 12.4 g/dL (12.2-16.2); Lymphocytes # 0.7 K/mm3 (0.7-4.5); Lymphocytes % 9.3 % (10-50); Mean Corpuscular HGB Conc 33.6 g/dL (31.8-35.4); Mean Corpuscular Hemoglobin 34.5 pg (27.0-31.2); Mean Corpuscular Volume 102.8 fl (81-99); Mean Platelet Volume 7.8 fl (7.4-10.4); Monocytes # 0.6 K/mm3 (0.1-1.0); Monocytes % 7.3 % (1.7-9.3); Neutrophils # 6.1 K/mm3 (1.8-7.8); Neutrophils % 80.5 % (37.0-80.0); Platelet Count 224 K/mm3 (142-424); Red Cell Distribution Width 14.9 % (11.5-17.5); White Blood Count 7.6 K/mm3 (4.8-10.8)
[2023-09-05 22:25] LABS: Albumin Level 4.3 g/dl (3.5-5.0); Chloride 104 mmol/L (98-107); Potassium 4.2 mmoL/L (3.5-5.1); Sodium 140 mmol/L (136-145)
[2023-09-05 22:27] LABS: Lactic Acid 0.7 mmol/L (0.7-2.1)
[2023-09-05 22:28] LABS: Alanine Aminotransferase 14 U/L (12-78); Albumin/Globulin Ratio 1.5 (1.1-1.8); Alkaline Phosphatase 135 U/L (38-126); Anion Gap 12.2 mEq/L (5-15); Aspartate Amino Transferase 24 U/L (14-36); Bilirubin,Total 0.7 mg/dl (0.2-1.3); Blood Urea Nitrogen 19 mg/dl (7-17); Carbon Dioxide 28 mmol/L (22.0-30.0); Creatinine Clearance Estimated 6 mL/min (50-200); Estimated Glomerular Filt Rate 6 ml/min (>60); GFR (African American) 7 ML/MIN (>60); Globulin 2.9 g/dL (1.3-3.2); Glucose 96 mg/dl (74-100); Lipase 321 U/L (23-300); Total Protein,Serum 7.2 g/dl (6.3-8.2)
[2023-09-05 22:30] VITALS: BP 165/79; PULSE 76; O2SAT 96
[2023-09-05 22:30] LABS: Microscopic, Urine URINE MICROSCOPIC (MICROSCOPIC)
[2023-09-05 22:33] LABS: Appearance,Urine Slightly Cloudy (Clear); Bilirubin,Urine Negative (Negative); Blood, Urine 2+ (Negative); Color,Urine YELLOW (Yellow); Glucose,Urine (UA) Negative (Negative); Ketones,Urine Negative (Negative); Leukocyte Esterase,Urine 1+ (Negative); Nitrate,Urine Negative (Negative); Protein,Urine 2+ (Negative); Urobilinogen,Urine 0.2 EU/dl (0.2)
[2023-09-05 22:42] LABS: Bacteria,Urine Trace /lpf
--- NOTE | 2023-09-05 22:48 | ED_ITS ---
Discharge Plan Disposition Patient Disposition: Xfer Short-Term Hosp Condition: Fair Prescriptions Prescriptions: No Action allopurinol 100 MG tablet 300 mg PO DAILY potassium chloride 20 MEQ tablet 20 meq PO TID calcitriol 0.5 mcg Capsule 0.5 mcg PO DAILY Referrals Follow up/Referrals: Michelle Garcia PA [Primary Care Provider] - See instructions Clinical Impressions Clinical Impression: Colon perforation Stand Alone Forms Stand Alone Forms: Transfer Record - ED Instructions Patient Instructions: DI for Acute Abdominal Pain Print Language Print Language: Telugu Discharge ED Provider: Jamila Jones General Adult HPI <Jamila Jones MD - Last Filed: 09/05/23 23:36> General Chief complaint: Abdominal Pain Stated complaint: colonoscopy 09/02, fever, cramping Time Seen by Provider: 09/05/23 21:48 Mode of Arrival: Ambulatory Source of Information: Patient Limitations: No Limitations Description of Symptoms (Recalled from ER Triage Doc. by RN): Pt presents with nausea, abominal cramping and fever since her colonoscopy on . Pt states she had 2 polyps removed, performed at . Pt is a dialysis pt. History of Present Illness HPI narrative: Patient is a 52-year-old female with past medical history TIA, ESRD on dialysis presenting with nausea, abdominal cramping. She states that she has had symptoms for the past 3 days since her colonoscopy on where she had 2 polyps removed. This was performed at [facility]. She is a dialysis patient and states she completed her full session today. She does note some fever as well to 101 at home but reports it is normal here. She states she just feels overall unwell and nauseous. Denies any chest pain, shortness of breath, vomiting. Related Data Home Medications ?Medication ?Instructions ?Recorded ?Confirmed allopurinol 100 mg tablet 300 mg PO DAILY gout 07/28/18 03/11/22 potassium chloride 20 mEq 20 meq PO TID Supplement 07/28/18 03/11/22 tablet,extended release(part/cryst) calcitriol 0.5 mcg capsule 0.5 mcg PO DAILY Supplement 11/01/21 03/11/22 Allergies Allergy/AdvReac Type Severity Reaction Status Date / Time Penicillins Allergy Intermediate Rash Verified 03/11/22 09:31 PFS <Jamila Jones MD - Last Filed: 09/05/23 23:36> [facility] Disclaimer: The information contained in this section may have been updated after the patient was seen, as this information can be updated by other users. Medical History Anorexia History of peritoneal dialysis History of renal failure Peritoneal dialysis catheter in place Surgical History History of cholecystectomy History of colonoscopy Family History Other Colon cancer Family history of cancer Social History Smoking Status: Never smoker alcohol intake: never substance use type: denies use current occupational status: employed Travel in the last 8 weeks: None housing: house caffeine: Yes <Jamila Jones MD - Last Filed: 09/05/23 23:36> ROS Obtained: Yes Systems reviewed as appropriate & no additional complaints except as documented Physical Exam <Jamila Jones MD - Last Filed: 09/05/23 23:36> General General appearance: alert and in no apparent distress Chest Chest inspection: Present normal inspection and symmetric chest wall rise Respiratory Respiratory exam: Present normal lung sounds bilaterally; Absent respiratory distress Cardiovascular Cardiovascular exam: Present regular rate and normal rhythm Abdominal Exam Abdominal exam: Present soft and tenderness (Mildly tender diffusely without rebound or guarding) Extremities Exam Extremities exam: Present other (Fistula over left upper extremity with palpable thrill) Neurological Exam Neurological exam: Present alert and oriented X3 Skin Skin exam: Present warm and dry Medical Decision Making <Jamila Jones MD - Last Filed: 09/05/23 23:36> Medical Records Medical records reviewed: Yes I reviewed the patient's medical records. Regino Inquiry Pt receiving controlled substance: No Vital Signs: 09/05/23 21:45 09/05/23 22:30 09/05/23 23:00 Temperature 99.5 F Temperature Source Oral Pulse Rate 76 83 Pulse Rate [Left] 71 Respiratory Rate 18 Blood Pressure 165/79 H 164/78 H Blood Pressure [Right Arm] 180/91 H Blood Pressure Mean 124 Blood Pressure Mean [Right Arm] 120 Blood Pressure Source [Right Arm] Automatic Cuff Blood Pressure Position [Right Arm] Sitting 02 Sat by Pulse Oximetry 97 96 94 L Oxygen Delivery Method Room Air Room Air 09/05/23 23:30 09/06/23 00:00 09/06/23 00:30 Temperature Temperature Source Pulse Rate 77 85 85 Pulse Rate [Left] Respiratory Rate Blood Pressure 147/74 H 163/83 H 172/87 H Blood Pressure [Right Arm] Blood Pressure Mean 114 119 116 Blood Pressure Mean [Right Arm] Blood Pressure Source [Right Arm] Blood Pressure Position [Right Arm] 02 Sat by Pulse Oximetry 95 98 98 Oxygen Delivery Method Room Air Room Air Room Air Lab Data Lab results reviewed: Yes I reviewed the patient's lab results. Lab Results 09/05/23 21:20: Urine Color Yellow, Urine Appearance Slightly cloudy, Urine pH 8.0, Ur Specific [place] 1.020, Urine Protein 2+, Urine Glucose (UA) Negative, Urine Ketones Negative, Urine Blood 2+, Urine Nitrate Negative, Urine Bilirubin Negative, Urine Urobilinogen 0.2, Ur Leukocyte Esterase 1+ A, Urine RBC 5-10, Urine WBC 3-5, Ur Squamous Epith Cells 5-10, Urine Bacteria Trace 09/05/23 21:55: WBC 7.6, RBC 3.60 L, Hgb 12.4, Hct 37.0, MCV 102.8 H, MCH 34.5 H , MCHC 33.6, RDW 14.9, Plt Count 224, MPV 7.8, Neut % (Auto) 80.5 H, Lymph % (Auto) 9.3 L, [place] % (Auto) 7.3, Eos % (Auto) 1.2, Baso % (Auto) 1.7, Neut # (Auto) 6.1, Lymph # (Auto) 0.7, [place] # (Auto) 0.6, Eos # (Auto) 0.1, Baso # (Auto) 0.1, Sodium 140, Potassium 4.2, Chloride 104, Carbon Dioxide 28, Anion Gap 12.2, BUN 19 H, Creatinine 7.40 H, Estimated Creat Clear 6, Estimated GFR 6 L*, Est GFR ( Amer) 7 L*, Glucose 96, Lactate 0.7, Calcium 8.0 L, Total Bilirubin 0.7, AST 24, ALT 14, Alkaline Phosphatase 135 H, Total Protein 7.2, Albumin 4.3, Globulin 2.9, Albumin/Globulin Ratio 1.5, Lipase 321 H 09/05/23 21:55 09/05/23 21:55 Orders (Tests/Meds): ED MEDICATIONS Discontinued Medications Generic Name Dose Route Start Last Admin Trade Name Zoie PRN Reason Stop Dose Admin Cefepime HCl 1 gm/ Sodium 50 mls @ 100 mls/hr 09/06/23 00:06 09/06/23 01:01 Chloride IV 09/06/23 00:07 100 mls/hr ONCE ONE Administration Metronidazole 500 mg in 100 mls @ 100 mls/hr 09/06/23 00:06 09/06/23 00:15 Flagyl 500mg/100ml Ivpb IV 09/06/23 01:05 100 mls/hr ONCE ONE Administration Cefepime HCl 1 gm/ Sodium 50 mls @ 100 mls/hr 09/06/23 01:14 09/06/23 01:23 Chloride IV 09/06/23 01:15 100 mls/hr ONCE ONE Administration ORDERS Category Date Time Status CT abdomen pelvis wo con Stat Cat Scan 09/05/23 22:48 Completed Complete Blood Count Auto Diff Stat Lab 09/05/23 21:55 Completed Comprehensive Metabolic Panel Stat Lab 09/05/23 21:55 Completed Lactic Acid Stat Lab 09/05/23 21:55 Completed Lipase Stat Lab 09/05/23 21:55 Completed Urinalysis and Microscopic Stat Lab 09/05/23 21:20 Completed Urine Culture Stat Micro 09/05/23 21:20 Received Medical Decision Narrative: Patient is a 52-year-old female with past medical history TIA and ESRD on dialysis presenting with abdominal pain, fevers and nausea after recent colonoscopy 3 days ago. She has had some symptoms since the procedure was performed but given continued symptoms and abdominal discomfort she presented. She is not febrile here but noted fever at home to 101. She has mild abdominal discomfort without rebound or guarding. She states she did do her full dialysis session and has a fistula over the left upper extremity with palpable thrill. She is hemodynamically stable in no acute distress at present. Will obtain labs imaging for further evaluation. She declined nausea or pain medication. CBC nonactionable, CMP with creatinine 7.4 consistent with ESRD on dialysis, lipase slightly elevated to 321, UA with some blood but appears grossly noninfectious. CT pending at time of signout to Dr. Vann. <Janet Vann MD - Last Filed: 09/06/23 01:58> Vital Signs: 09/05/23 21:45 09/05/23 22:30 09/05/23 23:00 Temperature 99.5 F Temperature Source Oral Pulse Rate 76 83 Pulse Rate [Left] 71 Respiratory Rate 18 Blood Pressure 165/79 H 164/78 H Blood Pressure [Right Arm] 180/91 H Blood Pressure Mean 124 Blood Pressure Mean [Right Arm] 120 Blood Pressure Source [Right Arm] Automatic Cuff Blood Pressure Position [Right Arm] Sitting 02 Sat by Pulse Oximetry 97 96 94 L Oxygen Delivery Method Room Air Room Air 09/05/23 23:30 09/06/23 00:00 09/06/23 00:30 Temperature Temperature Source Pulse Rate 77 85 85 Pulse Rate [Left] Respiratory Rate Blood Pressure 147/74 H 163/83 H 172/87 H Blood Pressure [Right Arm] Blood Pressure Mean 114 119 116 Blood Pressure Mean [Right Arm] Blood Pressure Source [Right Arm] Blood Pressure Position [Right Arm] 02 Sat by Pulse Oximetry 95 98 98 Oxygen Delivery Method Room Air Room Air Room Air Lab Data Lab Results 09/05/23 21:20: Urine Color Yellow, Urine Appearance Slightly cloudy, Urine pH 8.0, Ur Specific [place] 1.020, Urine Protein 2+, Urine Glucose (UA) Negative, Urine Ketones Negative, Urine Blood 2+, Urine Nitrate Negative, Urine Bilirubin Negative, Urine Urobilinogen 0.2, Ur Leukocyte Esterase 1+ A, Urine RBC 5-10, Urine WBC 3-5, Ur Squamous Epith Cells 5-10, Urine Bacteria Trace 09/05/23 21:55: WBC 7.6, RBC 3.60 L, Hgb 12.4, Hct 37.0, MCV 102.8 H, MCH 34.5 H , MCHC 33.6, RDW 14.9, Plt Count 224, MPV 7.8, Neut % (Auto) 80.5 H, Lymph % (Auto) 9.3 L, [place] % (Auto) 7.3, Eos % (Auto) 1.2, Baso % (Auto) 1.7, Neut # (Auto) 6.1, Lymph # (Auto) 0.7, [place] # (Auto) 0.6, Eos # (Auto) 0.1, Baso # (Auto) 0.1, Sodium 140, Potassium 4.2, Chloride 104, Carbon Dioxide 28, Anion Gap 12.2, BUN 19 H, Creatinine 7.40 H, Estimated Creat Clear 6, Estimated GFR 6 L*, Est GFR ( Amer) 7 L*, Glucose 96, Lactate 0.7, Calcium 8.0 L, Total Bilirubin 0.7, AST 24, ALT 14, Alkaline Phosphatase 135 H, Total Protein 7.2, Albumin 4.3, Globulin 2.9, Albumin/Globulin Ratio 1.5, Lipase 321 H Orders (Tests/Meds): ED MEDICATIONS Discontinued Medications Generic Name Dose Route Start Last Admin Trade Name Frekat PRN Reason Stop Dose Admin Cefepime HCl 1 gm/ Sodium 50 mls @ 100 mls/hr 09/06/23 00:06 09/06/23 01:01 Chloride IV 09/06/23 00:07 100 mls/hr ONCE ONE Administration Metronidazole 500 mg in 100 mls @ 100 mls/hr 09/06/23 00:06 09/06/23 00:15 Flagyl 500mg/100ml Ivpb IV 09/06/23 01:05 100 mls/hr ONCE ONE Administration Cefepime HCl 1 gm/ Sodium 50 mls @ 100 mls/hr 09/06/23 01:14 09/06/23 01:23 Chloride IV 09/06/23 01:15 100 mls/hr ONCE ONE Administration ORDERS Category Date Time Status CT abdomen pelvis wo con Stat Cat Scan 09/05/23 22:48 Completed Complete Blood Count Auto Diff Stat Lab 09/05/23 21:55 Completed Comprehensive Metabolic Panel Stat Lab 09/05/23 21:55 Completed Lactic Acid Stat Lab 09/05/23 21:55 Completed Lipase Stat Lab 09/05/23 21:55 Completed Urinalysis and Microscopic Stat Lab 09/05/23 21:20 Completed Urine Culture Stat Micro 09/05/23 21:20 Received Medical Decision Narrative: Patient is a 52-year-old female with past medical history TIA and ESRD on dialysis presenting with abdominal pain, fevers and nausea after recent colonoscopy 3 days ago. She has had some symptoms since the procedure was performed but given continued symptoms and abdominal discomfort she presented. She is not febrile here but noted fever at home to 101. She has mild abdominal discomfort without rebound or guarding. She states she did do her full dialysis session and has a fistula over the left upper extremity with palpable thrill. She is hemodynamically stable in no acute distress at present. Will obtain labs imaging for further evaluation. She declined nausea or pain medication. CBC nonactionable, CMP with creatinine 7.4 consistent with ESRD on dialysis, lipase slightly elevated to 321, UA with some blood but appears grossly noninfectious. CT pending at time of signout to Dr. Vann. Edwar: Upon my assumption of care patient is stable. I reviewed her labs. They appear consistent with prior based off my review of previous workups. CT abdomen pelvis personally interpreted demonstrates findings concerning for perforation. See radiology read for final interpretation. Radiology actually called me and I spoke with the reading radiologist who indicated there is a contained perforation at the splenic flexure. This perfectly explains patient's symptoms. I ordered cefepime and Flagyl for management and am calling for transfer of this patient for emergent intervention. Initially reached out to [facility], spoke with Dr. Nguyen who encouraged me to speak with [facility] since they performed her procedure 3 days ago. She stated I should call back if [place] declines the patient. Awaiting callback from [facility]. I discussed this case with Dr. Berkowitz with [facility] GI. He accepted the patient to [facility]. I discussed this case with the [facility] hospitalist, Mela. She agrees with the plan for admission to their service. ALS services currently out of [facility] and patient requires emergency transfer due to perforated viscus. [place] [id number] helicopter is on their way to get the patient for transfer. Dr. Vasques with [facility] general surgery also called back and we discussed the case. He agrees with the antibiotics have been administered, recommends continuing the patient as n.p.o. and maintaining IV fluids. Patient was transferred in stable condition. Critical Care <Jamila Jones MD - Last Filed: 09/05/23 23:36> Critical Care Time Critical Care Time: No <Janet Vann MD - Last Filed: 09/06/23 01:58> Critical Care Time Critical Care Time: Yes Attestation: On 09/05/23, the high probability of a clinically significant, sudden or life threatening deterioration of the following system(s) (gi/infectious) required my full and direct attention, intervention and personal management. The time I documented below is in addition to time spent performing reported procedures but includes the following listed in this critical care notation. Total Time Total Critical Care Time: 35
--- NOTE | 2023-09-05 22:48 | CT_ITS ---
PROCEDURE INFORMATION: Exam: CT Abdomen And Pelvis Without Contrast Exam date and time: 09/05/2023 10:53 PM Age: 52 years old Clinical indication: Abdominal pain; Prior surgery; Surgery date: Post-operative (0-2 days); Surgery type: Colonoscopy; Additional info: Abd pain, recent colonoscopy ? perf TECHNIQUE: Imaging protocol: Computed tomography of the abdomen and pelvis without contrast. Radiation optimization: All CT scans at this facility use at least one of these dose optimization techniques: automated exposure control; mA and/or kV adjustment per patient size (includes targeted exams where dose is matched to clinical indication); or iterative reconstruction. COMPARISON: CR XR KUB 04/01/2022 3:48 PM FINDINGS: Lungs: Calcified granulomata, otherwise clear basilar lung parenchyma. Pleural spaces: No pleural fluid. No pneumothorax. Heart: Heart is upper limit of normal in size. Diaphragm: Small sliding hiatal hernia. Liver: Normal configuration. Homogeneous parenchyma. Gallbladder and biliary ducts: Prior cholecystectomy. No biliary tree dilation or high-density retained stones appreciated. Pancreas: Normal. No ductal dilation. Spleen: Normal. No splenomegaly. Adrenal glands: Normal configuration. Kidneys and ureters: No evidence of obstruction. No visible inflammation. Stomach and bowel: Metallic density structure noted in the gastric antrum. Fluid noted in the stomach. Normal caliber small bowel. Several high-density foci are noted in the ascending colon. At the splenic flexure, there is loculated extraluminal gas compatible with contained perforation. Hyperdense structures are noted in the lumen of the splenic flexure, potentially marking clips. Distal colon appears normal. Appendix: Normal appendix is confirmed. Intraperitoneal space: See Stomach and bowel finding. Vasculature: Mild aortoiliac calcific atherosclerosis without aneurysm. Lymph nodes: No enlarged lymph nodes. Urinary bladder: Unremarkable as visualized. Reproductive: Physiologic appearance for age. Bones/joints: No fracture or destructive lesion. Soft tissues: Unremarkable. IMPRESSION: 1. Exam confirms localized perforation of the colon at the splenic flexure. The gas appears loculated, potentially within the mesocolon. No free air or free fluid in the peritoneal cavity. 2. Borderline cardiac enlargement. 3. Small sliding hiatal hernia.
[2023-09-05 23:00] VITALS: BP 164/78; PULSE 83; O2SAT 94
[2023-09-05 23:30] VITALS: BP 147/74; PULSE 77; O2SAT 95
[2023-09-06] VITALS: BP 163/83; PULSE 85; O2SAT 98
--- NOTE | 2023-09-06 00:04 | PC.NURSE ---
speaking with [facility] re: finding.
--- NOTE | 2023-09-06 00:08 | PC.NURSE ---
call to [facility]'s re transfer to their facility, awaiting return call
[2023-09-06] MEDS: METRONIDAZ/SOD CHL 500 MG/100 ML PIGGYBACK 100 MG IV (00:15)
--- NOTE | 2023-09-06 00:24 | PC.NURSE ---
Spoke with Tomasz at [facility] in regards to a transfer, he will be paging Dr. Myers and the senior construction project manager surgery team and be giving us a call back.
[2023-09-06 00:30] VITALS: BP 172/87; PULSE 85; O2SAT 98
[2023-09-06 01:00] VITALS: BP 168/85; PULSE 85; O2SAT 97
[2023-09-06] MEDS: CEFEPIME HCL 1 GM in 0.9 % SODIUM CHLORIDE 50 ML IV ×2 (01:01→01:23)
[2023-09-06 01:30] VITALS: BP 177/86; PULSE 89; O2SAT 98
--- NOTE | 2023-09-06 01:39 | PC.NURSE ---
received call back from hospitalist at [facility]. Speaking with MD at this time.
--- NOTE | 2023-09-06 01:57 | PC.NURSE ---
faxed a copy of facesheet to [phone]. Received bed assignment and passed information on to primary nurse
[2023-09-06 02:00] VITALS: BP 177/89; PULSE 85; O2SAT 97
[2023-09-06] MEDS: ACETAMINOPHEN 500MG TAB 1000 MG PO (02:01)
[2023-09-06] MEDS: LACTATED RINGERS 1000ML 1,000 ML 75 ML IV (02:02)
--- NOTE | 2023-09-06 02:23 | PC.NURSE ---
[place] [facility] transporting pt to [facility] via aircraft. Report called to Stephanie Escalante at [facility] 7 tower [address][id number], report given to air evac no additional questions at this time.
[2023-09-06 02:24] VITALS: BP 163/83; PULSE 85; RESP 16; TEMP 38.1; O2SAT 97
== END 2023-09-06 02:26 | disposition short-term general hospital (02) ==
PROVIDERS: Emergency Provider Emergency Medicine; PCP Physician Assistant
DX: K63.1 Perforation of intestine (nontraumatic) (principal); R10.819 Abdominal tenderness, unspecified site; R25.2 Cramp and spasm; R11.0 Nausea; R50.9 Fever, unspecified; N18.6 End stage renal disease; Z99.2 Dependence on renal dialysis
CPT/HCPCS: 74176; 80053; 81001; 83605; 83690; 85025; 87086; 96361; 96365; 96375; 96376; 99291; J0692; J7120

== ENCOUNTER 2024-02-05 10:53 | Emergency (ER) | payer MEDICARE, BC, SELFPAY ==
[2024-02-05 12:35] VITALS: BP 107/62; PULSE 82; RESP 17; TEMP 37.2; O2SAT 98; BMI 18.3
--- NOTE | 2024-02-05 12:43 | ED_ITS ---
Discharge Plan Disposition Patient Disposition: Home, Self-Care Condition: Good Prescriptions Prescriptions: No Action allopurinol 100 MG tablet 300 mg PO DAILY potassium chloride 20 MEQ tablet 20 meq PO TID calcitriol 0.5 mcg Capsule 0.5 mcg PO DAILY Referrals Follow up/Referrals: Michelle Garcia PA [Primary Care Provider] - See instructions Activity Restrictions/Add. Instructions Additional Instructions/Restrictions: *Monitor Temp, Over the counter Motrin or Tylenol as directed/as needed Tylenol every 4 hours and Motrin every 6 hours (as long as your family doctor has told you that you can take it) for fever or pain. and straight to ER if unable to lower temp less than 101.0 after medication given *Warm salt water gargles may help to soothe the throat *Throat Lozenges? *Warm fluids like tea with honey may help to soothe the throat? *Sleep elevated *Humidifier/Vaporizer *Flonase 2 sprays in each nostril daily but be aware that it may take 2-3 days before you notice improvement *Bromfed may cause drowsiness. Know how it effects you (your child) before driving, caring for small child, or sending your child to school. Not other antihistamines/allergy medications while taking bromfed Your throat swab was sent for culture. Those results are typically sent to your primary care. Be sure to follow up in 2-3 days with your family doctor/primary care physician if no improvement so they can review those result and treat if necessary. If you don?t have a primary care doctor, I recommend you get one but in the mean time, you will have to return to a walk in clinic Follow up IMMEDIATELY for new or worsening symptoms or no Noticeable improvement over the next 48-72 hours. 911 for difficulty breathing or swallowing You were tested for today for Mini Panel test that includes, RhinoVirus, Influenza A & B, RSV and COVID19 your test result should be back in the next 4 hours, you may check your results on the [facility] portal Clinical Impressions Clinical Impression: Viral syndrome Instructions Patient Instructions: DI for Viral Syndrome Print Language Print Language: Lithuanian Discharge ED Provider: Diana Bennett [facility] HPI General Stated complaint: cough, aches, sneezing Mode of Arrival: Ambulatory Source of Information: Patient Limitations: No Limitations Time Seen by Provider: 02/05/24 12:44 Description of Symptoms (Recalled from Triage Doc. by RN): PATIENT C/O COUGH, SNEEZING, AND BODY ACHES SINCE YESTERDAY HEENT Symptoms (Recalled from RN notes): Yes Resp Symptoms (Recalled from RN notes): Yes Skin Symptoms (Recalled from RN notes): No MS Symptoms (Recalled from RN notes): No Functional Status (Recalled from RN notes): WNL History of Present Illness Provider Complaint: Patient states that she started feeling bad yesterday States that she has been having nasal congestion, runny nose, body aches, chills and sneezing so today when she was still feeling bad she came in to get checked States that father is ill also with similar symptoms Related Data Home Medications ?Medication ?Instructions ?Recorded ?Confirmed allopurinol 100 mg tablet 300 mg PO DAILY gout 07/28/18 03/11/22 potassium chloride 20 mEq 20 meq PO TID Supplement 07/28/18 03/11/22 tablet,extended release(part/cryst) calcitriol 0.5 mcg capsule 0.5 mcg PO DAILY Supplement 11/01/21 03/11/22 Allergies Allergy/AdvReac Type Severity Reaction Status Date / Time Penicillins Allergy Intermediate Rash Verified 03/11/22 09:31 Worker's Comp Is this a Worker's Comp case?: No [facility] Disclaimer: The information contained in this section may have been updated after the patient was seen, as this information can be updated by other users. Medical History Anorexia History of peritoneal dialysis History of renal failure Peritoneal dialysis catheter in place Surgical History History of cholecystectomy History of colonoscopy Family History Other Colon cancer Family history of cancer Social History Smoking Status: Never smoker alcohol intake: never substance use type: denies use current occupational status: employed Travel in the last 8 weeks: None housing: house caffeine: Yes Have you lived/traveled outside US in past 30 days?: No Contact w/someone who lives/traveled outside US past 30 days?: No Exposure to someone with infectious disease in past 14 days?: No Do you have a fever (greater than 100.4 F or 38 C)?: No Have you tested positive for COVID-19: No Exposed to someone with COVID-19 in past 14 days?: No Do you have a sore throat?: No Do you have a cough?: Yes Do you have any weakness?: No Do you have any diarrhea?: No Are you experiencing any unusual bleeding?: No Do you have any muscle aches/pain?: Yes Do you have any abdominal pain?: No Are you experiencing loss of taste or smell?: No ROS Obtained: Yes All systems reviewed & no additional complaints except as documented and Yes Systems reviewed as appropriate & no additional complaints except as documented Constitutional Constitutional: Reports system reviewed and no additional complaints, except as documented, Reports as per HPI, Reports body ache, Reports chills and Reports headache(s) ENT Ears, Nose, Mouth, and Throat: Reports system reviewed and no additional complaints, except as documented, Reports as per HPI, Reports headache(s), Reports nasal congestion and Reports nasal discharge Cardiovascular Cardiovascular: Reports system reviewed and no additional complaints, except as documented and Reports as per HPI Respiratory Respiratory: Reports system reviewed and no additional complaints, except as documented, Reports as per HPI and Reports cough Gastrointestinal Gastrointestingal: Reports system reviewed and no additional complaints, except as documented and as per HPI Neurologic Neurologic: Reports headache(s) Physical Exam General General appearance: alert and in no apparent distress ENT ENT exam: Present mucous membranes moist Expanded ENT Exam Nose exam: Present other (clear drainage noted) Throat exam: Present normal inspection Respiratory Respiratory exam: Present normal lung sounds bilaterally; Absent respiratory distress or wheezes Cardiovascular Cardiovascular exam: Present regular rate, normal rhythm and normal heart sounds Abdominal Exam Abdominal exam: Present soft and normal bowel sounds; Absent distention or tenderness Neurological Exam Neurological exam: Present alert, oriented X3 and normal gait Medical Decision Making Medical Records Screening: Per USPSTF and CDC recommendations, given the prevalence of disease in our region, it is our hospital?s policy to screen for HIV and viral Hepatitis for all patients aged 18 and over and those with ongoing risk factors. Regino Inquiry Pt receiving controlled substance: No Regino was queried for this patient: No Vital Signs: 02/05/24 12:35 Temperature 98.9 F Temperature Source Oral Pulse Rate [Left Brachial] 82 Respiratory Rate 17 Blood Pressure [Left Arm] 107/62 L Blood Pressure Mean [Left Arm] 77 Blood Pressure Source [Left Arm] Automatic Cuff Blood Pressure Position [Left Arm] Sitting 02 Sat by Pulse Oximetry 98 Oxygen Delivery Method Room Air Lab Data Lab results reviewed: Yes I reviewed the patient's lab results.
[2024-02-05 13:04] LABS: UTC Influenza A Antigen Negative (Negative); UTC Influenza B Antigen Negative (Negative)
[2024-02-05 13:09] VITALS: BP 107/62; PULSE 82; RESP 17; TEMP 37.2; O2SAT 98
[2024-02-05 13:22] LABS: Human Rhinovirus Not Detected (NotDetected); Influenza A, PCR Not Detected (NotDetected); Influenza B, PCR Not Detected (NotDetected); Respiratory Syncytial Virus Not Detected (NotDetected)
[2024-02-05 17:22] LABS: Coronavirus 19, PCR Detected (NotDetected)
== END 2024-02-05 13:15 | disposition home or self-care (01) ==
PROVIDERS: Emergency Provider Nurse Practitioner; PCP Physician Assistant
DX: B34.9 Viral infection, unspecified (principal)
CPT/HCPCS: 87631; 87804; 99213; G0381

== ENCOUNTER 2024-06-01 07:10 | Outpatient (CLI) | payer MEDICARE, BC, SELFPAY ==
[2024-06-01 08:45] LABS: Albumin Level 3.9 g/dl (3.5-5.0); Anion Gap 11.5 mEq/L (5-15); Blood Urea Nitrogen 17 mg/dl (7-17); Calcium 8.2 mg/dl (8.4-10.2); Carbon Dioxide 35 mmol/L (22.0-30.0); Chloride 97 mmol/L (98-107); Estimated Glomerular Filt Rate 5 ml/min (>60); GFR (African American) 6 ML/MIN (>60); Glucose 79 mg/dl (74-100); Phosphorous 7.2 mg/dl (2.5-4.5); Potassium 4.5 mmoL/L (3.5-5.1); Sodium 139 mmol/L (136-145)
[2024-06-01 09:04] LABS: 25-OH Vitamin D, Total 15.4 ng/mL (30-100)
== END 2024-06-01 23:59 | disposition home or self-care (01) ==
LOC: LAB 07:12
PROVIDERS: PCP Family Medicine; Visit Provider Internal Medicine Nephrology
DX: N18.6 End stage renal disease (principal); E55.9 Vitamin D deficiency, unspecified
CPT/HCPCS: 36415; 80069; 82306; 83970

== ENCOUNTER 2024-08-10 07:48 | Outpatient (CLI) | payer MEDICARE, BC, SELFPAY ==
--- OUTSIDE RECORDS SUMMARY | 2023-09-18 05:30 | XMS_ITS ---
Author Organization [facility] Address [address] [place] [id number] Care Team Providers Care Field Marketing Specialist Name Role Phone Mary Ann Marcelo Primary Care Provider [phone] Michelle Garcia Unavailable [phone] Allergies Allergen (clinical drug ingredient) Drug/Non Drug Allergy documented on EMR Reaction Allergy Type Onset Date Status spironolactone Aldactone Unknown Drug Allergy Ac tive Substance with penicillin structure and antibacterial mechanism of action (substance) Penicillins Unknown Drug Allergy Active Results Component Value Reference Range Notes CBC Venipuncture (in house) Reviewed date:09/18/2023 01:10:01 PM Interpretation: Performing Lab: Notes/Report: wbc 6.3 3.5 - 10 lymph 19.6 15 - 50 mid 6.0 2 - 15 gran 74.4 35 - 80 rbc 2.58 3.5 - 5.5 hgb 8.2 11.5 - 16.5 hct 25.0 35 - 55 mcv 97.0 75 - 100 mch 31.8 25 - 35 mchc 32.7 31 - 38 platlet 425 100 - 400 Glycohemoglobin A1c (in hous e) Reviewed date:09/18/2023 01:09:34 PM Interpretation:4.9% Performing Lab: Notes/Report: 4.9% glycohemoglobin 4.9% 5 - 6.5 % P-Comprehensive Metabolic Pa cameron (CMP) Reviewed date:09/22/2023 10:49:57 PM Interpretation:chlor 93, co2- 34, bun 34, Cr 11.07, Ca 7.6, gfr 4, prot 5.6 Performing Lab: Notes/Report: Test performed by [facility] [address] [place] [address] , [address], [place] [address] Simon Guerrero MD, Unix Developer CLIA: [id number] Sodium 140 135-145 mmol/L Potassium 4.5 3.5-5.3 mmol/L Chloride 93 97-108 mmol/L CO2 34 22-32 mmol/L Glucose 80 65-99 mg/dL BUN 34 6-20 mg/dL Creatinine 11.07 0.50-1.00 mg/dL Calcium 7.6 8.6-10.4 mg/dL ALERT VALUE Results were repeated and confirmed. eGFR by Creatinine 4 >59 mL/min/1.73m2 Protein 5.6 6.0-8.3 g/dL Albumin 3.5 3.5-5.3 g/dL Alkaline Phosphatase 114 35-121 IU/L ALT (SGPT) 7 <5-47 IU/L AST (SGOT) 12 <5-40 IU/L Bilirubin, Total 0.2 <0.2-1.2 mg/dL A/G Ratio 1.7 1.1-2.5 mg/dL P-FSH and LH Reviewed date:09/22/2023 10:49:57 PM Interpretation:Normal Performing Lab: Notes/Report: Test performed by [facility] [address] [place] [address] , [address], [place] [address] Simon Guerrero MD, Unix Developer CLIA: [id number] Luteinizing Hormone 8.80 LH Reference Range Men: 1.7 - 8.6 Women: Follicular phase 2.4 - 12.6 Ovulation phase 14.0 - 95.6 Luteal phase 1.0 - 11.4 Postmenopause 7.7 - 58.5 FSH 17.80 FSH Reference Range Men: 1.5 - 12.4 Women: Follicular phase 3.5 - 12.5 Ovulation phase 4.7 - 21.5 Luteal phase 1.7 - 7.7 Postmenopause 25.8 - 134.8 P-T4 Free (thyroxine) Reviewed date:09/22/2023 10:49:57 PM Interpretation:0.79 Performing Lab: Notes/Report: Test performed by [facility] [address] [place] [address] Simon Guerrero MD, Unix Developer CLIA: [id number] Thyroxine Free (free T4) 0.79 0.86-1.76 ng/dL P-Lipid Panel Reviewed date:09/22/2023 10:49:57 PM Interpretation:Normal Performing Lab: Notes/Report: Test performed by [facility], [address] [place] [address] Simon Guerrero MD, Unix Developer CLIA: [id number] Cholesterol 136 <200 mg/dL Triglycerides 101 <150 mg/dL HDL Cholesterol 44 >39 mg/dL Cholesterol / HDL Ratio 3.09 0.00-4.44 Ratio Non-HDL Cholesterol 92 <130 mg/dL LDL Cholesterol (Calculation) 72 <130 mg/dL LDL Cholesterol Levels* Less than 100 mg/dL Optimal 100 to 129 mg/dL Near Optimal/ Above Optimal 130 to 159 mg/dL Borderline High 160 to 189 mg/dL High 190 mg/dL and above Very High * Categories as recommended by the 2004 ATPIII guidelines LDL/HDL Ratio 1.6 <3.3 Ratio LDL Cholesterol Patient History Test Date: 09/18/2023 LDL Results: 72 Units: mg/dL % Change: - P-TSH reflex to FT4 Reviewed date:09/22/2023 10:49:57 PM Interpretation:10.4 Performing Lab: Notes/Report: Test performed by [facility], [employer] [address] [place] [address] , [address], [place] [address] Simon Guerrero MD, Unix Developer CLIA: [id number] TSH reflex to FT4 10.40 0.43-5.25 mU/L REASON FOR VISIT checkup Medications Medication SIG (Take, Route, Frequency, Duration) Notes Start Date End Date Status Calcitriol 0.25 MCG 1 capsule Orally Onc e a day Active Olmesartan Medoxomil 5 MG 1 tablet Orall y Once a day Active Potassium Chloride ER 20 MEQ 3 tab(s) orally once a day Active FLUoxetine HCl 20 MG 1 capsule Orally On ce a day; Duration: 30 day(s) Active FLUoxetine HCl 60 MG 1 tab(s) orally onc e a day (in the morning); Duration: 90 days Not-Taking Carvedilol 6.25 MG 1 tablet with food Orally Twice a day; Duration: 30 day(s) Active Jolessa 0.15-0.03 MG 1 tab(s) orally onc e a day; Duration: 91 days Not-Takin g Allopurinol 100 MG 1 tab(s) orally 2 ti mes a day; Duration: 30 day(s) Not-Taking Ondansetron 4 MG 1 tablet on the tong ue and allow to dissolve Orally every 6 hours prn; Duration: 10 days 08/11/2022 Not-Takin g Vital Signs Blood pressure systolic 98 mm Hg 09/18/19 24 Blood pressure diastolic 58 mm Hg 024 Heart Rate 73 /min 09/18/2023 Height 63 in 09/18/2023 Weight 97.8 lbs 09/18/2023 BMI 17.32 kg/m2 09/18/2023 Encounters Encounter Location Date Provider Diagnosis [facility] [address] [place] [id number] 09/18/2023 Michelle Garcia Renal insufficiency N28.9 ; Hypertension secondary to other renal disorders I15.1 ; Diabetes mellitus screening Z13.1 ; Lipid screening Z13.220 ; Hypokalemia E87.6 ; Irregular menses N92.6 and Blood in stool K92.1 Assessments Encounter Date Diagnosis (ICD Code) Assessment Notes Treatment Notes Treatment Clinical Notes Section Notes 09/18/2023 Renal insufficiency (ICD-10 - N28.9) 09/18/2023 Hypertension secondary to other renal disorders (ICD-10 - I15.1) 09/18/2023 Diabetes mellitus screening (ICD-10 - Z13.1) 09/18/2023 Lipid screening (ICD-10 - Z13.220) 09/18/2023 Hypokalemia (ICD-10 - E87.6) 09/18/2023 Irregular menses (ICD-10 - N92.6) 09/18/2023 Blood in stool (ICD-10 - K92.1) H&H has decreased. Will recheck next week along with an INR. Patient called [facility] and spoke with the physician's office who did her c-scope. They told her if she had anymore rectal bleeding she needed to come to their ER. She had quite a bit 2 days ago and a small amount yesterday but has seen no blood today. Will keep monitoring. Plan Of Treatment Treatment Notes Assessment Notes Blood in stool H&H has decreased. W ill recheck next week along with an INR. Patient called [facility] and spoke with the physician's office who did her c-scope. They told her if she had anymore rectal bleeding she needed to come to their ER. She had quite a bit 2 days ago and a small amount yesterday but has seen no blood today. Will keep monitoring. Next Appt Details Follow Up: via phone to repo rt test results, Reason: Progress Notes * YOGI HERMELINDADOB: 2 (53 yo F)Acc No.[id number]:09/18/2023 Progress Notes Patient: HERMELINDA CAM Provider: BRYANT Castro :1970 A ge:52 Y S ex:Female Date:09/18/2023 Address: [id number] Pcp:Marcelo Reese Subjective: * Chief Complaints: * 1 . Checkup. * HPI: H PI: Patient is here today for a scheduled check up. Pt is fasting today. G astroenterology: Pt had a colonoscopy on 09/02 and on 09/04 she went to [facility] ER due to a high fever. Pt was transferred to [facility] where she had the colonoscopy performed and was found to have a small tear in her colon. The tear was found to be contained so no surgery was required. Pt sts that this past Thursday she had several bowel movements that contained blood. Pt sts that she was having abdominal pain and cramping as well. Pt sts that this has started to improve. See pt docs for records of visits. G YN: Pt has an irregular menses and would like to know how she would know if she was beginning menopause. * ROS: D ERMATOLOGY: no R elle. n o H david. G ASTROENTEROLOGY: no N ausea. n o V omiting. n o D iarrhea.? U ROLOGY: no D ifficulty urinating. n o B lood in urine. * Medical History: A norexia PATIENT DOES NOT WANT TO KNOW HER WEIGHT, Lactose Intolerance, Gout, Renal Insufficiency, Dx: 2013, eGFR in the 's, s/p kidney biopsy, Chronic kidney disease, stage V as of 2019, on transplant list with , 10/10/2020-peritoneal dialysis; she does at home nightly; remains on transplant list; has monthly labs, 2022- Hemodialysis on Thu & Thu. * Surgical History: Laproscopic cholecystectomy 2005, kidney biopsy June 2014, Colonoscopy - [facility] 09/03/2023. * Hospitalization/Major Diagno stic Procedure: H ER to [facility] - Small Tear following Colonoscopy 09/05/2023. * Family History: F ather: alive. M other: alive. P aternal Grand Father: . P aternal Grand Mother: . M aternal Grand Father: . M aternal Grand Mother: . 1 brother(s) . . * Social History: C URRENT TOBACCO USE S moking Status: Patient does NOT smoke. C affeine: yes, frequency:. Exercise: no. Home smoke detector use: yes. Marital Status: . New since last visit: none. Past smoking status: no. Recreational drug use: Past use:. Alcohol: no. * Medications: T aking FLUoxetine HCl 20 MG Capsule 1 capsule Orally Once a day , Taking Carvedilol 6.25 MG Tablet 1 tablet with food Orally Twice a day , Taking Calcitriol 0.25 MCG Capsule 1 capsule Orally Once a day , Taking Olmesartan Medoxomil 5 MG Tablet 1 tablet Orally Once a day , Taking Potassium Chloride ER 20 MEQ Tablet Extended Release 3 tab(s) orally once a day , Not-Taking Ondansetron 4 MG Tablet Disintegrating 1 tablet on the tongue and allow to dissolve Orally every 6 hours prn , Not-Taking Allopurinol 100 MG Tablet 1 tab(s) orally 2 times a day , Not- Taking Jolessa 0.15-0.03 MG Tablet 1 tab(s) orally once a day , Not-Taking FLUoxetine HCl 60 MG Tablet 1 tab(s) orally once a day (in the morning) , Discontinued Doxycycline Monohydrate 100 MG Capsule 1 capsule Orally Twice a day , Discontinued Albuterol Sulfate HFA 108 (90 Base) MCG/ACT Aerosol Solution 1 puff Inhalation every 4 hrs, prn , Medication List reviewed and reconciled with the patient * Allergies: P enicillins, Aldactone. Objective: * Vitals: W t:97.8, Temp:98.0, BP:98/58, HR:73, O2 Sat:97% on RA, Nurse:HAMILTON, Ht: 63, BMI:17.32. * Examination: G eneral Examination: General Appearance: N AD. H EENT: u nremarkable.?Oral cavity: n o lesions, mucosa moist and WNL, no erythema. N elaina: s upple, no lymphadenopathy. C hest: n ormal shape and expansion. H eart: R SR. L ungs: c lear to auscultation. A bdomen: bowel sounds present, soft and nontender, no organomegaly or masses, no guarding or rigidity. N eurologic Exam: I ntact, gait normal. S kin: n ormal, no rash. P eripheral pulses: n ormal (2+) bilaterally. E xtremities: n o leg edema. Assessment: * Assessment: 1. R enal insufficiency - N28.9 (Primary) 2 . H ypertension secondary to other renal disorders - I15.1 3 . D iabetes mellitus screening - Z13.1 ?4. L ipid screening - Z13.220 5 . H ypokalemia - E87.6 6. I rregular menses - N92.6 7 . B lood in stool - K92.1 Plan: * Treatment: Value Reference Range A /G Ratio 1.7 1.1-2.5 - mg/dL * A lbumin 3.5 3.5-5.3 - g/dL * A lkaline Phosphatase 114 35-121 - IU/L * A LT (SGPT) 7 <5-47 - IU/L * A ST (SGOT) 12 <5-40 - IU/L * B ilirubin, Total 0.2 <0.2-1.2 - mg/dL * B UN 34 H 6-20 - mg/dL * C alcium 7.6 L 8.6-10.4 - mg/dL * C hloride 93 L 97-108 - mmol/L * C O2 34 H 22-32 - mmol/L * C reatinine 11.07 H 0.50-1.00 - mg/dL * G lucose 80 65-99 - mg/dL * P otassium 4.5 3.5-5.3 - mmol/L * S odium 140 135-145 - mmol/L * P rotein 5.6 L 6.0-8.3 - g/dL * e GFR by Creatinine 4 L >59 - mL/min/1.73m2 * Rhonda Bhagat 09/21/2023 8:40: 51 AM >See phone encounter Micehlle Garcia 09/22/2023 10:49:17 PM > see TE 2.?Diabetes mellitus screening?LAB: Glycohemoglobin A1c (in house) (Collection Date & Time - 09/18/2023)? 4.9%* Value Reference Range g lycohemoglobin 4.9% 5 - 6.5 % * Kathy Fu 09/18/2023 9:42: 49 AM >Michelle Garcia 09/18/2023 1:09:28 PM > discussed with patient 3.?Lipid screening?LAB: P-Lipid Panel (Collection Date & Time - 09/18/2023 08:30 AM)?Normal* Value Reference Range C holesterol / HDL Ratio 3.09 0.00-4.44 - Ratio * C holesterol 136 <200 - mg/dL * H DL Cholesterol 44 >39 - mg/dL * L DL Cholesterol (Calculation) 72 <130 - mg/d L * L DL/HDL Ratio 1.6 <3.3 - Ratio * N on-HDL Cholesterol 92 <130 - mg/dL * T riglycerides 101 <150 - mg/dL * Rhonda Bhagat 09/21/2023 8:40: 51 AM >See phone encounter JoseDashawnjonathan Fowler 09/22/2023 10:49:17 PM > see TE 4.?Irregular menses?LAB: P-FSH and LH (Collection Date & Time - 09/18/2023 08:30 AM)?Normal* Value Reference Range F SH 17.80 - mIU/mL * L uteinizing Hormone 8.80 - mIU/mL * Rhonda Bhagat 09/21/2023 8:40: 51 AM >See phone encounter Michelle Garcia 09/22/2023 10:49:17 PM > see TE ?LAB: P-TSH reflex to FT4 (Collection Date & Time - 09/18/2023 08:30 AM)? 10.4* Value Reference Range T SH reflex to FT4 10.40 H 0.43-5.25 - mU/L * OlayinkaRhonda 09/21/2023 8:40: 51 AM >See phone encounter JoseMichelle Malcolm 09/22/2023 10:49:17 PM > see TE 5.?Blood in stool?LAB: CBC Venipuncture (in house) (Collection Date & Time - 09/18/2023)* Value Reference Range w bc 6.3 3.5 - 10 * l ymph 19.6 15 - 50 * m id 6.0 2 - 15 * g ran 74.4 35 - 80 * r bc 2.58 3.5 - 5.5 * h gb 8.2 11.5 - 16.5 * h ct 25.0 35 - 55 * m cv 97.0 75 - 100 * m ch 31.8 25 - 35 * m chc 32.7 31 - 38 * p latlet 425 100 - 400 * Kathy Fu 09/18/2023 9:42: 14 AM >Michelle Garcia Malcolm 09/18/2023 1:09:38 PM > discussed with patient, will need to recheck next week to monitor HGB, Will also need an INR. Notes: H&H has decreased. Will recheck next week along with an INR. Patient called [facility] and spoke with the physician's office who did her c-scope. They told her if she had anymore rectal bleeding she needed to come to their ER. She had quite a bit 2 days ago and a small amount yesterday but has seen no blood today. Will keep monitoring.?? * Labs: * L ab: P-T4 Free (thyroxine) (Collection Date & Time - 09/18/2023 08:30 AM) 0 .79 Value Reference Range T hyroxine Free (free T4) 0.79 L 0.86-1.76 - ng/d L * [facility], IT support 09/19/2023 05:05:11 : This order was created by the Interface. Rhonda Bhagat 09/21/2023 8:40:51 AM >See phone encounter Michelle Garcia Malcolm 09/22/2023 10:49:17 PM > see TE * Procedure Codes: 9 [address] [place], [address] CAPILLARY BLOOD DRAW, 70295 GLYCATED HEMOGLOBIN TEST, Modifiers: QW , 14485 CBC WITH AUTO DIFF, 70817 VENIPUNCT, ROUTINE* * Follow Up: v ia phone to report test results * Images: Billing Information: * Visit Code: 21201 Office Visit, Est Pt., Level 4. * Procedure Codes: [address] [place]. [address] CAPILLARY BLOOD DRAW. 18445 GLYCATED HEMOGLOBIN TEST. Modifiers: QW 21273 CBC WITH AUTO DIFF. 75507 VENIPUNCT, ROUTINE*. * Electronic signature of BRYANT Thompson on 08/10/2024 at 07:51 AM EDT Sign off status: Pending * Provider: BRYANT Castro Date: 0 09/18/2023 Generated for Bar ruffin/Fathadg/eTransmitting on: 0 08/10/2024 07:51 AM EDT History and Physical Notes * HPI (History of Present Illness) Category Sub-Category Detail Notes Category Not es STICKER HAND Pt has an irregular menses and would like to know how she would know if she was beginning menopause Gastroenterology Pt had a colonoscopy on 09/02 and on 09/04 she went to [facility] ER due to a high fever. Pt was transferred to [facility] where she had the colonoscopy performed and was found to have a small tear in her colon. The tear was found to be contained so no surgery was required. Pt sts that this past Thursday she had several bowel movements that contained blood. Pt sts that she was having abdominal pain and cramping as well. Pt sts that this has started to improve. See pt docs for records of visits HPI Patient is here today for a scheduled check up. Pt is fasting today Examination Category Sub-Category Detail Notes Category Not es General Examination HEENT: unremarkable Heart: RSR Lungs: clear to auscultatio n Abdomen: bowel sounds present , soft and nontender, no organomegaly or masses, no guarding or rigidity Extremities: no leg edema General Appearance: NAD Skin: normal, no rash Neurologic Exam: Intact, gait normal Neck: supple, no lymphaden opathy Oral cavity: no lesions, mucosa m oist and WNL, no erythema Peripheral pulses: normal (2+) bilatera lly Chest: normal shape and exp ansion
--- OUTSIDE RECORDS SUMMARY | 2023-09-26 05:40 | XMS_ITS ---
[facility] Address [address] [place] [id number] Care Team Providers Care Seismic Observer Name Role Phone Red CliffYessiMarcelo Primary Care Provider Michelle Garcia Unavailable [phone] Results Component Value Reference Range Notes CBC Fingerstick (in house) Reviewed date:10/01/2023 12:39:26 PM Interpretation: Performing Lab: Notes/Report: wbc 7.6 3.5 - 10 lym 12.1 15 - 50 mid 20.5 2 - 15 gran 67.4 35 - 80 rbc 3.14 3.5 - 5.5 hgb 9.3 11.5 - 16.5 hct 28.6 35 - 55 mcv 91.0 75 - 100 mch 29.8 25 - 35 mchc 32.7 31 - 38 plat 267 100 - 400 REASON FOR VISIT CBC Medications Medication SIG (Take, Route, Frequency, Duration) Notes Start Date End Date Status Calcitriol 0.25 MCG 1 capsule Orally Onc e a day Active Carvedilol 6.25 MG 1 tablet with food Orally Twice a day; Duration: 30 day(s) Active Levothyroxine Sodium 50 MCG 1 tablet in the morning on an empty stomach Orally Once a day; Duration: 30 day(s) 09/22/2023 Active Potassium Chloride ER 20 MEQ 3 tab(s) orally once a day Active Olmesartan Medoxomil 5 MG 1 tablet Orall y Once a day Active FLUoxetine HCl 20 MG 1 capsule Orally On ce a day; Duration: 30 day(s) Active FLUoxetine HCl 60 MG 1 tab(s) orally onc e a day (in the morning); Duration: 90 days Not-Taking Jolessa 0.15-0.03 MG 1 tab(s) orally onc e a day; Duration: 91 days Not-Takin g Allopurinol 100 MG 1 tab(s) orally 2 times a day; Duration: 30 day(s) Not-Taking Ondansetron 4 MG 1 tablet on the tong ue and allow to dissolve Orally every 6 hours prn; Duration: 10 days 08/11/2022 Not-Takin g Encounters Encounter Location Date Provider Diagnosis [facility] [address] [facility] [address] [place] [id number] 09/26/2023 Michelle Garcia Blood in stool K92.1 Assessments Encounter Date Diagnosis (ICD Code) Assessment Notes Treatment Notes Treatment Clinical Notes Section Notes 09/26/2023 Blood in stool (ICD-10 - K92.1) Plan Of Treatment No Information Progress Notes * HERMELINDA CALIXDOB: 2 (53 yo F)Acc No.[id number]:09/26/2023 Patient: HERMELINDA CAM Provider: BRYANT Castro :1970 A ge:52 Y S ex:Female Date:09/26/2023 Address:[address] [place] [address] [place], [id number] Pcp:Marcelo Reese Subjective: * Chief Complaints: * 1 . CBC. * Medical History: * Medications: T aking FLUoxetine HCl 20 [...] 3 tab(s) orally once a day , Taking Levothyroxine Sodium 50 MCG Tablet 1 tablet in the morning on an empty stomach Orally Once a day , Not-Taking Ondansetron 4 MG Tablet Disintegrating 1 tablet on the tongue and allow to dissolve Orally every 6 hours prn , Not-Taking Allopurinol 100 MG Tablet 1 tab(s) orally 2 times a day , Not-Taking Jolessa 0.15-0.03 MG Tablet 1 tab(s) orally once a day , Not-Taking FLUoxetine HCl 60 MG Tablet 1 tab(s) orally once a day (in the morning) , Medication List reviewed and reconciled with the patient Objective: * Vitals: Assessment: * Assessment: 1. B lood in stool - K92.1 (Primary) Plan: * Treatment: Value Reference Range w bc 7.6 3.5 - 10 * l ym 12.1 15 - 50 * m id 20.5 2 - 15 * g ran 67.4 35 - 80 * r bc 3.14 3.5 - 5.5 * h gb 9.3 11.5 - 16.5 * h ct 28.6 35 - 55 * m cv 91.0 75 - 100 * m ch 29.8 25 - 35 * m chc 32.7 31 - 38 * p lat 267 100 - 400 * Stephanie Michel 09/26/2023 10:2 8:12 AM > Stephanie Michel 09/26/2023 10:37:02 AM > CBC shown to Dr. Reese, and compared to last CBC and it has improved. Pt informedMichelle Garcia 10/01/2023 12:39:20 PM > noted * Procedure Codes: 3 6416 CAPILLARY BLOOD DRAW, 97538 CBC WITH AUTO DIFF * Images: Billing Information: * Visit Code: * Procedure Codes: 69130 CAPILLARY BLOOD DRAW. 26321 CBC WITH AUTO DIFF. * Electronic signature of BRYANT Thompson on 08/10/2024 at 07:52 AM EDT Sign off status: Pending * Provider: BRYANT Castro Date: 09/26/2023 Generated for Bar ruffin/Nic/Devinitting on: 08/10/2024 07:52 AM EDT
--- NOTE | 2024-08-10 07:49 | MM_ITS ---
PROCEDURE INFORMATION: Exam: MG Bilateral Screening 3D Mammography Exam date and time: 08/10/2024 8:09 AM Age: 53 years old Clinical indication: Screening examination TECHNIQUE: Imaging protocol: Bilateral Screening tomosynthesis and 2D mammography including computer-aided detection (CAD) when performed. COMPARISON: 1. MG MM DIG SCREENING MAMM BI W/CAD 08/07/2023 7:53 AM 2. MG MM DIG SCREENING MAMM BI W/CAD 12/26/2021 10:48 AM FINDINGS: MAMMOGRAPHY: Breast composition: The breasts are heterogeneously dense, which may obscure small masses. Mass: None. Architectural distortion: None. Calcifications: No suspicious calcifications. Asymmetric density: None. Skin thickening: None. Axillary adenopathy: None. IMPRESSION: No mammographic evidence of malignancy. Annual screening is recommended unless otherwise clinically indicated. ASSESSMENT: BI-RADS Category 1: Negative.
--- OUTSIDE RECORDS SUMMARY | 2024-08-10 07:50 | XMS_ITS | Encounter Summary ---
Author Organization [facility] Address [address] [place] [address] Care Team Providers Care Asbestos Handler Name Role Phone Marcelo Reese MD Primary Care Provider + [phone] Encounter Details Date Type Department Care Team (Late st Contact Info) Description 11/17/2019 [facility] OT[facility] Encounter Historical OTTR [address] [place] [address] Jmuana Ku, RN [facility]-TRANSPLANT ADMINISTRATION Social History Tobacco Use Types Packs/Day Years Used Date Smoking Tobacco: Never Assessed Comments Unknown Sex and Gender Information Value Date Recorded Sex Assigned at Not on file Legal Sex Female 8:06 PM EDT Gender Identity Not on file Sexual Orientation Not on file documented as of this encounter Miscellaneous Notes * Progress Notes - Jumana Ku - 11/17/2019 11:42 AM EDT Received below email from patient. Responded with secure email requesting documents for items mentioned. Jumana: This is Nat Hatch - Birthday 1970. I am a transplant list patient at and I am emailing to let you know of some updates for my records: Mammogram completed on 11/14- Negative - nothing further needed Flu Shot received November 11 Hepatitis B shot ??? round 1 - received November 11 Nat Hatch documented in this encounter Plan of Treatment Upcoming Encounters Date Type Department Care Team (Late st Contact Info) Description 09/09/2024 11:00 AM EDT Social Work [facility] [address] [place] [address] Cassia Verma [facility] [address] [phone] documented as of this encounter Visit Diagnoses Not on filedocumented in this encounter Care Teams Asbestos Handler Relationship Specialty Start Date End Date Marcelo Reese MD [address] [facility] [address] [place], [place] [id number] PCP - General 06/22/20 documented as of this encounter
--- OUTSIDE RECORDS SUMMARY | 2024-08-10 07:50 | XMS_ITS | Encounter Summary ---
Author Organization [facility] Address [address] [place] [id number] Care Team Providers Care Fire Management Specialist Name Role Phone Marcelo Reese MD Primary Care Provider + [phone] Encounter Details Date Type Department Care Team (Late st Contact Info) Description 10/26/2019 [facility] OTTR Encounter Historical OTTR [address] [place] [address] Emily Livingston, RN [id number] [address] [place] [address] Social History Tobacco Use Types Packs/Day Years Used Date Smoking Tobacco: Never Assessed Comments Unknown Sex and Gender Information Value Date Recorded Sex Assigned at Not on file Legal Sex Female 8:06 PM EDT Gender Identity Not on file Sexual Orientation Not on file documented as of this encounter Miscellaneous Notes * Progress Notes - Emily Livingston - 10/26/2019 10:50 AM EDT Called pt to make her aware of committee decision, she verbalized understanding. Recommended she speak with her PCP about the Hep B series, she confirmed understanding. Patient also stated she is having her mammogram at the end of this month and is aware to send a copy to her coordinator. all questions asked were answered documented in this encounter Plan of Treatment Upcoming Encounters Date Type Department Care Team (Late st Contact Info) Description 09/09/2024 11:00 AM EDT Social Work [facility] [address] [place] [address] Cassia Verma [facility] [address] [phone] documented as of this encounter Visit Diagnoses Not on filedocumented in this encounter Care Teams Fire Management Specialist Relationship Specialty Start Date End Date Marcelo Reese MD [address] [facility] [address] [place] [address] PCP - General 06/22/20 documented as of this encounter
--- OUTSIDE RECORDS SUMMARY | 2024-08-10 07:50 | XMS_ITS | Encounter Summary ---
Author Organization [facility] Address [address] [place] [address] Care Team Providers Care Whirley Operator Name Role Phone Marcelo Reese MD Primary Care Provider + [phone] Encounter Details Date Type Department Care Team (Late st Contact Info) Description 12/12/2019 [facility] OTTR Encounter Historical OTTR [address] [place] [address] Hamida Delaney [place] [phone] Social History Tobacco Use Types Packs/Day Years Used Date Smoking Tobacco: Never Assessed Comments Unknown Sex and Gender Information Value Date Recorded Sex Assigned at Not on file Legal Sex Female 8:06 PM EDT Gender Identity Not on file Sexual Orientation Not on file documented as of this encounter Miscellaneous Notes * Progress Notes - Hamida Delaney - 12/12/2019 4:01 PM EST Discussion/ Summary 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, possible NSAIDs, advanced, gfr now 10-15, creatinine 4-5 with small body mass; reviewed options, will hold off PD catheter placement, recheck in 2 months documented in this encounter Plan of Treatment Upcoming Encounters Date Type Department Care Team (Late st Contact Info) Description 09/09/2024 11:00 AM EDT Social Work [facility] [address] [facility] [address] [place] [address] Cassia Verma [address] [address] documented as of this encounter Visit Diagnoses Not on filedocumented in this encounter Care Teams Whirley Operator Relationship Specialty Start Date End Date Marcelo Reese MD [address] [facility] [address] [place] [place] [phone] PCP - General 06/22/20 documented as of this encounter
--- OUTSIDE RECORDS SUMMARY | 2024-08-10 07:50 | XMS_ITS | Encounter Summary ---
Author Organization [facility] Address [address] [place] [address] Care Team Providers Care Soap Slabber Name Role Phone Marcelo Reese MD Primary Care Provider + [phone] Encounter Details Date Type Department Care Team (Late st Contact Info) Description 03/15/2020 [facility] OT[facility] Encounter Historical OTTR [address] [place] [address] Jumana Ku, RN [facility]TRANSPL[facility] ADMINISTRATION Social History Tobacco Use Types Packs/Day Years Used Date Smoking Tobacco: Former Alcohol Use Standard Drinks/Week Comments Not Currently 0 (1 standard drink = 0.6 oz pure alcohol) Alcoholic Drinks/day: History of alcohol use Comments Unknown Sex and Gender Information Value Date Recorded Sex Assigned at Not on file Legal Sex Female 8:06 PM EDT Gender Identity Not on file Sexual Orientation Not on file documented as of this encounter Miscellaneous Notes * Progress Notes - Jumana Ku - 03/15/2020 8:22 AM EST Current selection criteria and SRTR data (February 2020 release) mailed to patient's home. documented in this encounter Plan of Treatment Upcoming Encounters Date Type Department Care Team (Late st Contact Info) Description 09/09/2024 11:00 AM EDT Social Work [facility] [address] [facility] [address] [place] [address] Cassia Verma [facility] [address] [phone] documented as of this encounter Visit Diagnoses Not on filedocumented in this encounter Care Teams Soap Slabber Relationship Specialty Start Date End Date Marcelo Reese MD [facility] [place] [address] PCP - General 06/22/20 documented as of this encounter
--- OUTSIDE RECORDS SUMMARY | 2024-08-10 07:50 | XMS_ITS | Encounter Summary ---
Author Organization [facility] Address [address] [place] [address] Care Team Providers Care Manganese Wheeler Name Role Phone Marcelo Reese MD Primary Care Provider + [phone] Encounter Details Date Type Department Care Team (Late st Contact Info) Description 11/09/2019 [facility] OT[facility] Encounter Historical OTTR [address] [place] [address] Jumana Ku, RN CH-TRANSPLANT ADMINISTRATION Social History Tobacco Use Types Packs/Day Years Used Date Smoking Tobacco: Never Assessed Comments Unknown Sex and Gender Information Value Date Recorded Sex Assigned at Not on file Legal Sex Female 8:06 PM EDT Gender Identity Not on file Sexual Orientation Not on file documented as of this encounter Miscellaneous Notes * Progress Notes - Jumana Ku - 11/09/2019 1:30 PM EDT Current selection criteria and SRTR data (September 2019 release) mailed to patient's home. documented in this encounter Plan of Treatment Upcoming Encounters Date Type Department Care Team (Late st Contact Info) Description 09/09/2024 11:00 AM EDT Social Work [facility] [address] [place] [address] Cassia Verma [facility] [address] [place] [address] documented as of this encounter Visit Diagnoses Not on filedocumented in this encounter Care Teams Manganese Wheeler Relationship Specialty Start Date End Date Marcelo Reese MD [address] [facility] [address] [place] [address] PCP - General 06/22/20 documented as of this encounter
--- OUTSIDE RECORDS SUMMARY | 2024-08-10 07:51 | XMS_ITS | Encounter Summary ---
Author Organization [facility] Address [address] [id number] Care Team Providers Care Business Center Representative Name Role Phone Marcelo Reese MD Primary Care Provider + [phone] Encounter Details Date Type Department Care Team (Late Contact Info) Description 06/17/2019 [facility] OTTR Encounter Historical OTTR [address] [place] [address] [place] [address] Social History Tobacco Use Types Packs/Day Years Used Date Smoking Tobacco: Never Assessed Comments Unknown Sex and Gender Information Value Date Recorded Sex Assigned at Not on file Legal Sex Female 8:06 PM EDT Gender Identity Not on file Sexual Orientation Not on file documented as of this encounter Miscellaneous Notes * Progress Notes - Paz Downey - 06/17/2019 8:47 AM EDT No openings for all annual appts until September. Annual eval scheduled for 09/19/19. Will call pt and mail ppw. documented in this encounter Plan of Treatment Upcoming Encounters Date Type Department Care Team (Late Contact Info) Description 09/09/2024 11:00 AM EDT Social Work [facility] [address] [place] [address] Cassia Verma [facility] [address] [place] [address] documented as of this encounter Visit Diagnoses Not on filedocumented in this encounter Care Teams Business Center Representative Relationship Specialty Start Date End Date Marcelo Reese MD [address] [place] [address] PCP - General 06/22/20 documented as of this encounter
--- OUTSIDE RECORDS SUMMARY | 2024-08-10 07:51 | XMS_ITS | Encounter Summary ---
Author Organization [facility] Address [address] [place] [address] Care Team Providers Care Supervisor Felling Bucking Name Role Phone Marcelo Reese MD Primary Care Provider + [phone] Encounter Details Date Type Department Care Team (Late st Contact Info) Description 08/08/2019 Legacy OTTR Encounter Historical OTTR [address] [place] [address] Paz Downey [place] [phone] Social History Tobacco Use Types Packs/Day Years Used Date Smoking Tobacco: Never Assessed Comments Unknown Sex and Gender Information Value Date Recorded Sex Assigned at Not on file Legal Sex Female 8:06 PM EDT Gender Identity Not on file Sexual Orientation Not on file documented as of this encounter Miscellaneous Notes * Progress Notes - Paz Downey - 08/08/2019 11:55 AM EDT Called and spoke w/ pt. Verified pt has not yet started dialysis and states her current weight is 105 lbs. BMI 19.2; pt does not need two-day stress test. Gave pt 09/18 annual eval appt details, but pt says she is unavailable that afternoon. Asked if there are any other dates I need to avoid, and pt says that Mondays are not good for her, and asked that her annual appts be moved to the next available . Told pt that we do not have any openings until mid-October. Pt apologized and says it's too difficult for her to take off of work on Mondays and insisted appts will have to be moved. Told pt I will r/s her 09/18 annual eval appts to the first available and will call her back w/updated appt details once available. Pt verbalized understanding of all. Will r/s pt's appts to a , pending RN approval. Messaged TC for advise; will await response prior to r/s'ing pt's appts. documented in this encounter Plan of Treatment Upcoming Encounters Date Type Department Care Team (Late st Contact Info) Description 09/09/2024 11:00 AM EDT Social Work [facility] [address] [place] [address] Cassia Verma [place] [phone] documented as of this encounter Visit Diagnoses Not on filedocumented in this encounter Care Teams Supervisor Felling Bucking Relationship Specialty Start Date End Date Marcelo Reese MD [address] [facility] [address] [place] [address] PCP - General 06/22/20 documented as of this encounter
--- OUTSIDE RECORDS SUMMARY | 2024-08-10 07:51 | XMS_ITS | Encounter Summary ---
Author Organization [facility] Address [address] [place] [address] Care Team Providers Care Veneer Stacker Name Role Phone Marcelo Reese MD Primary Care Provider + [phone] Encounter Details Date Type Department Care Team (Late st Contact Info) Description 02/09/2020 Legacy OTTR Encounter Historical OTTR [address] [place] [address] Jumana Ku, RN [facility]-TRANSPL[facility] ADMINISTRATION Social History Tobacco Use Types Packs/Day Years Used Date Smoking Tobacco: Never Assessed Comments Unknown Sex and Gender Information Value Date Recorded Sex Assigned at Not on file Legal Sex Female 8:06 PM EDT Gender Identity Not on file Sexual Orientation Not on file documented as of this encounter Miscellaneous Notes * Progress Notes - Jumana Ku - 02/09/2020 10:43 AM EST Left message for patient requesting return call with update on PRA as we have not received a samplesince August. documented in this encounter Plan of Treatment Upcoming Encounters Date Type Department Care Team (Late st Contact Info) Description 09/09/2024 11:00 AM EDT Social Work [facility] [address] [facility] [address] [place] [address] Cassia Verma [facility] [address] [place] [address] documented as of this encounter Visit Diagnoses Not on filedocumented in this encounter Care Teams Veneer Stacker Relationship Specialty Start Date End Date Marcelo Reese MD [address] [place] [facility] [address] [place] [address] PCP - General 06/22/20 documented as of this encounter
--- OUTSIDE RECORDS SUMMARY | 2024-08-10 07:51 | XMS_ITS | Encounter Summary ---
Author Organization [facility] Address [address] [place] [address] Care Team Providers Care Trim Mechanic Name Role Phone Marcelo Reese MD Primary Care Provider + [phone] Encounter Details Date Type Department Care Team (Late st Contact Info) Description 03/10/2019 Legacy OTTR Encounter Historical OTTR [address] [place] [address] Hamida Delaney [place] [phone] Social History Tobacco Use Types Packs/Day Years Used Date Smoking Tobacco: Never Assessed Comments Unknown Sex and Gender Information Value Date Recorded Sex Assigned at Not on file Legal Sex Female 8:06 PM EDT Gender Identity Not on file Sexual Orientation Not on file documented as of this encounter Miscellaneous Notes * Progress Notes - Hamida Delaney - 03/10/2019 9:32 AM EST Nat Hatch labs have stabilized, hold off on catheter and beginning PD; I will see her 04/13/19 and reassess Thanks for your help! Alexy Michelle MD Drier Take Off Tender Ventilating Equipment Installer, Ne[facility] Min[facility] documented in this encounter Plan of Treatment Upcoming Encounters Date Type Department Care Team (Late st Contact Info) Description 09/09/2024 11:00 AM EDT Social Work [facility] Transplant Center [address] [place] [address] Cassia Verma [facility] [address] [place] [phone] documented as of this encounter Visit Diagnoses Not on filedocumented in this encounter Care Teams Trim Mechanic Relationship Specialty Start Date End Date Marcelo Reese MD [address] [facility] [address] [place], [place] [phone] PCP - General 06/22/20 documented as of this encounter
--- OUTSIDE RECORDS SUMMARY | 2024-08-10 07:51 | XMS_ITS | Encounter Summary ---
Author Organization [facility] Address [address] [place] [id number] Care Team Providers Care Airborne Missions Systems Name Role Phone Marcelo Reese MD Primary Care Provider + [phone] Encounter Details Date Type Department Care Team (Late st Contact Info) Description 10/26/2019 [facility] OTTR Committee Historical OTTR [address] [place] [address] Emily Livingston, RN [id number] [address] [place] [address] Social History Tobacco Use Types Packs/Day Years Used Date Smoking Tobacco: Never Assessed Comments Unknown Sex and Gender Information Value Date Recorded Sex Assigned at Not on file Legal Sex Female 8:06 PM EDT Gender Identity Not on file Sexual Orientation Not on file documented as of this encounter Miscellaneous Notes * Progress Notes - Emily Livingston - 10/26/2019 10:06 AM EDT Reviewed annual testing and consults, no issues. Patient is cleared to remain active. Will recommend she obtain Hep B series as her is negative. * Progress Notes - Jose Angel Bowman NP - 10/26/2019 8:30 AM EDT 10/19. Annual. 49-year-old female, with a history of chronic kidney disease stage V of unknown etiology. She has not started any type of renal replacement therapy, nor does she have any access either. She is listed active at for a kidney transplant. Today she had annual testing to include cardiacand also met with transplant Gunnery/Ordnance Officer. She has a history of anorexia and bulimia for over 20 years, with abuse of diuretics and laxatives;reports controlled. She attended an inpatient rehab for eating disorders in 2004. She continues to follow-up with her therapist twice a month, reports going well, now that she has been taking Prozac on a regular basis; feels a lot better. States last time she had any purging episodes was in October 2017. She is now eating better and is actually enjoying the food that she eats. She does request that her weight actual numbers not to be discussed with her. She has not been hospitalized in the last 12 months. Reports being physically active, walks on a daily basis. Works in General [employer] from [employer] for [email or web address]. Denies any tobacco, alcohol, recreational drug use; alcohol use maybe once a month. -Patient still appropriate to remain listed active for a kidney transplant, pending acceptable outcome of today's annual testing -States is a potential living donor possibility -I discussed Hepatitis C virus positive donor donation; patient to discuss with her . documented in this encounter Plan of Treatment Upcoming Encounters Date Type Department Care Team (Late st Contact Info) Description 09/09/2024 11:00 AM EDT Social Work [facility] [address] [place] [address] Cassia Verma [facility] [address] [place] [address] documented as of this encounter Visit Diagnoses Not on filedocumented in this encounter Care Teams Airborne Missions Systems Relationship Specialty Start Date End Date Marcelo Reese MD [address] [facility] [address] [place], [place] [id number] PCP - General 06/22/20 documented as of this encounter
--- OUTSIDE RECORDS SUMMARY | 2024-08-10 07:51 | XMS_ITS | Encounter Summary ---
Author Organization [facility] Address [address] [place] [address] Care Team Providers Care House Worker Name Role Phone Marcelo Reese MD Primary Care Provider + [phone] Encounter Details Date Type Department Care Team (Late st Contact Info) Description 05/15/2020 Legacy OTTR Encounter Historical OTTR [address] [place] [address] Jumana Ku, RN [facility]TRANSPLANT ADMINISTRATION Social History [...] * Progress Notes - Jumana Ku - 05/15/2020 10:39 AM EDT Received call from patient that she would like her PRA order emailed so she can go ahead and have it drawn. Secure emailed per her request. documented in this encounter Plan of Treatment Upcoming Encounters Date Type Department Care Team (Late st Contact Info) Description 09/09/2024 11:00 AM EDT Social Work [facility]plant Center [address] [place] [address] Cassia Verma [address] [address] documented as of this encounter Visit Diagnoses Not on filedocumented in this encounter Care Teams House Worker Relationship Specialty Start Date End Date Marcelo Reese MD [address] [place] [address] PCP - General 06/22/20 documented as of this encounter
--- OUTSIDE RECORDS SUMMARY | 2024-08-10 07:51 | XMS_ITS | Encounter Summary ---
Author Organization [facility] Address [address] [place] [address] Care Team Providers Care Dumper Operator Name Role Phone Marcelo Reese MD Primary Care Provider + [phone] Reason for Visit * Reason Comments Appointment Confirmed RIA soler ap pointment Encounter Details Date Type Department Care Team (Late st Contact Info) Description 06/15/2024 Telephone [facility] [address] [facility] [address] [place] [phone] Moni Coulter Transplant [address] [place] [phone] Appointment (Confirmed SW eval appointment) Social History Tobacco Use Types Packs/Day Years Used Date Smoking Tobacco: Former Cigarettes 0.5 10 1 990 - 2000 Passive Smoke Exposure: Past Smokeless Tobacco: Never Alcohol Use Standard Drinks/Week Comments Not Currently 0 (1 standard drink = 0.6 oz pure alcohol) Alcoholic Drinks/day: History of alcohol use PHQ-2 Answer Date Recorded Patient Health Questionnaire-2 Score 0 06/09/2024 CAGE ASSESSMENT Answer Date Recorded Cage unable to access Not on file 04/08/2022 Cage max number of drinks Not on file 2022 Cage Beverages a week Not on file 04/08/2022 Have you ever felt you should CUT down on your d rinking? 0 04/08/2022 Have you been ANNOYED by people criticizing your drinking? 0 04/08/2022 Have you felt GUILTY about your drinking? 0 04/08/2022 Have you had a drink first t caron in the morning (EYE-OUTREACH AND EDUCATION SOCIAL WORKER) to steady your nerves or to get rid of a hangover? 0 04/08/2022 CAGE Questionnaire Score 0 023 PHQ-2A Answer Date Recorded Patient Health Questionnaire-2 Score 0 05/29/2022 Comments No Sex and Gender Information Value Date Recorded Sex Assigned at Not on file Legal Sex Female 8:06 PM EDT Gender Identity Not on file Sexual Orientation Not on file documented as of this encounter Functional Status * Are you deaf or do you have serious difficulty hearing? Answer Date of Assessment Author No 01/03/2022 5:36 PM Ajay Kaminski RN * Are you blind or do you have serious difficulty seeing, even when wearing glasses? Answer Date of Assessment Author No 01/03/2022 5:36 PM Ajay Kaminski RN * Do you have serious difficulty walking or climbing stairs? Answer Date of Assessment Author No 01/03/2022 5:36 PM Ajay Kaminski RN * Do you have serious difficulty dressing or bathing? Answer Date of Assessment Author No 01/03/2022 5:36 PM Ajay Kaminski RN * Because of a physical, mental, or emotional condition, do you have serious difficulty doing errandsalone such as visiting the doctor? Answer Date of Assessment Author No 01/03/2022 5:36 PM Ajay Kaminski RN documented as of this encounter Mental Status * Because of a physical, mental, or emotional condition, do you have serious difficulty concentrating, remembering, or making decisions? (5 years old or older) Answer Entry Date Author No 01/03/2022 5:36 PM Ajay Kmainski RN documented in this encounter Miscellaneous Notes * Telephone Encounter - Moni Coulter - 06/15/2024 1:36 PM EDT Scheduled Sw only appointment for first avail 09/09 (originally had pt scheduled for 09/05 but pt declined that day). Called and spoke with pt. Confirmed date/ time of SW visit. Informed pt that supportperson is required at visit. Mailed appointment scheduled and financial worksheet. documented in this encounter Plan of Treatment Upcoming Encounters Date Type Department Care Team (Late st Contact Info) Description 09/09/2024 11:00 AM EDT Social Work [facility] [address] [place] [phone] Cassia Verma [facility] [address] [place] [address] documented as of this encounter Visit Diagnoses Not on filedocumented in this encounter Additional Health Concerns Assessment Noted Time A fall risk assessment has been complete d for the patient 06/09/2024 7:48 AM EDT A Body Mass Index follow-up plan has been documented for the patient 06/13/2024 11:53 AM EDT documented as of this encounter Care Teams Dumper Operator Relationship Specialty Start Date End Date Marcelo Reese MD [address] [facility] [address] [address] PCP - General 06/22/20 documented as of this encounter
--- OUTSIDE RECORDS SUMMARY | 2024-08-10 07:51 | XMS_ITS | Encounter Summary ---
Author Organization [facility] Address [address] [place] [address] Care Team Providers Care Brick Carrier Name Role Phone Marcelo Reese MD Primary Care Provider + [phone] Encounter Details Date Type Department Care Team (Late st Contact Info) Description 05/14/2020 Legacy OTTR Encounter Historical OTTR [address] [place] [address] Jumana Ku, RN [facility]TRANSPLANT ADMINISTRATION Social History [...] * Progress Notes - Jumana Ku - 05/14/2020 4:07 PM EDT Called patient and informed her that I will be transitioning to a new position and Dave Lee willtake over her care on 06/04/20. Informed her she will use the same phone number if she needs anything. Informed her we have not received a PRA sample since Feb and request she obtain one. She informs me she has been preparing to start PD with Cristian Landin and will start the training on 05/28/20. Asked that she go ahead and get a PRA drawn and then she can start next month with the dialysis drawing it for her. She informed me she has never received PRA supplies. Informed her that I will mail some to her and a new order (hers is out dated) and she can just take those to dialysis center when she starts. She confirmed understanding. Paz, please mail PRA order (page 2-3 of the listing letter) to pts home. IMP lab notified to please mail PRA supplies to pts home: [place] [address] documented in this encounter Plan of Treatment Upcoming Encounters Date Type Department Care Team (Late st Contact Info) Description 09/09/2024 11:00 AM EDT Social Work [facility] [address] [facility] [address] [place] [phone] Cassia Verma [facility] [address] [place] [phone] documented as of this encounter Visit Diagnoses Not on filedocumented in this encounter Care Teams Brick Carrier Relationship Specialty Start Date End Date Marcelo Reese MD [address] [facility] [address] [place] [address] PCP - General 06/22/20 documented as of this encounter
--- OUTSIDE RECORDS SUMMARY | 2024-08-10 07:51 | XMS_ITS | Encounter Summary ---
Author Organization [facility] Address [address] [place] [address] Care Team Providers Care Nitrating Acid Mixer Name Role Phone Marcelo Reese MD Primary Care Provider + [phone] Encounter Details Date Type Department Care Team (Late st Contact Info) Description 02/22/2020 Legacy OTTR Encounter Historical OTTR [address] [place] [address] Hamida Delaney [place] [phone] Social History Tobacco Use Types Packs/Day Years [...] * Progress Notes - Hamida Delaney - 02/22/2020 11:07 AM EST Ms. Hatch saw Dr. Michelle on 02/12 discussion section of note below: Will reschedule follow up for one month. 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, possible NSAIDs, advanced, decline since last visit, eGFR 6, discussed potential to start arranging for PD, will repeat levels 03/2020 and assess prior to arranging catheter and training Hypokalemia; cont 60 meq kcl, increasing k dietary foods Metabolic alkalosis; hc03 WNL improved; diuretic screen negative Elevated uric acid, better, level 5, allopurinol 300mg Secondary HPT; PTH elevated, phos up, will focus on complying with binders, cont vit d 2000 units, cont off calcitriol, advised more phoslo exposure HTN, coreg 12.5 bid, amlodipine 5mg documented in this encounter Plan of Treatment Upcoming Encounters Date Type Department Care Team (Late st Contact Info) Description 09/09/2024 11:00 AM EDT Social Work [facility] Transplant Center [address] [facility] [address] [place] [phone] Cassia Verma [facility] [address] [place] [phone] documented as of this encounter Visit Diagnoses Not on filedocumented in this encounter Care Teams Nitrating Acid Mixer Relationship Specialty Start Date End Date Marcelo Reese MD [address] [facility] [address] [place] [address] PCP - General 06/22/20 documented as of this encounter
--- OUTSIDE RECORDS SUMMARY | 2024-08-10 07:51 | XMS_ITS | Clinical Summary ---
Author Organization [facility] Address [address] [place] [address] Care Team Providers Care Ball Maker Name Role Phone Marcelo Reese MD Primary Care Provider + [phone] Allergies Active Allergy Reactions Criticality Noted Date Comments Penicillins Rash,Unknown - Patie nt states they do not know rxn details High 12/17/2020 Medications * This document contains information received from the source organization and may not represent a complete record from that organization. potassium chloride CR (Klor-Con M20) 20 MEQ ER tablet Take 1 tablet (20 mEq) by mouth 2 (two) times a day. Do not crush or chew. 60 tablet 11 3 Active carvedilol (Coreg) 6.25 MG tablet Take 1 tablet (6.25 mg) by mouth twice a day. 3 Active Auryxia 1 GM 210 MG(Fe) tablet Take 2 tablets by mouth 3 (three) times a day with meals. 540 tablet 3 4 Active Additional Information Patient not taking.Reported on 06/09/2024 lactulose 20 gram/30 mL oral solution Take 15 mL (10 g) by mouth 1 (one) time each day. As needed for constipation 450 mL 1 4 Active Additional Information Patient not taking.Reported on 06/09/2024 olmesartan (BENIcar) 5 MG tablet Take 1 tablet by mouth once daily 30 tablet 4 Active Additional Information Patient not taking.Reported on 06/09/2024 calcitriol (Rocaltrol) 0.5 MCG capsule Take 2 capsules (1 mcg) by mouth daily. 180 capsule 3 5 04/12/19 26 Active Additional Information Patient taking differently: 1.5 mcgOral Daily, Reported on 06/09/2024 FLUoxetine (PROzac) 20 MG capsule Take 1 capsule by mouth daily. 4 Active Active Problems Problem Noted Date Diagnosed Date Underweight 06/08/2022 Anemia due to chronic kidney disease 04/08/2022 Thrombocytosis 04/08/2022 ESRD needing dialysis 01/03/2022 Resolved Problems Problem Noted Date Diagnosed Date Resolved Date Peritoneal dialysis catheter dysfunction 04/08/2022 04/09/2022 Leukocytosis 04/08/2022 04/09/2022 Encounters Date Type Department Care Team Description 06/15/2024 Telephone [facility] [place] [address] [address] Moni Coulter Appointment (Confirmed [facility] appointment) 06/15/2024 Telephone [facility] [place] [address] [address] Angie Major RN 06/09/2024 8:40 AM EDT Office Visit [facility] [place] [address] [address] Rufino Caldwell MD ESRD (end stage renal disease) ([facility]) (Primary Dx) 06/09/2024 Travel 06/01/2024 Orders Only [facility] [address], [address] [place] [address] Imelda Dallas PA 05/19/2024 Telephone [facility] [place] [address] [address] Moni Coulter Referral - Kidney [facility] (Scheduled ice) 05/18/2024 Telephone [facility] [place] [address] [address] Moni Coulter Referral - Kidney Txp ([facility] -referral accepted) 05/17/2024 Telephone [facility] [address] [place] [address] Moni Coulter from Last 3 Months Immunizations Immunization Administration Dates Next Due Hep A, Adult 07/29/2018,01/26/2018 Hep B, adult 05/19/2020,04/08/2020 HepB-CpG 11/05/2019 Influenza, injectable, quadr ivalent, preservative free 11/05/2019,12/15/2018,10/28/2017 Influenza, seasonal, injectable 10/28/2017 Rukhsana COVID-19 Vaccine (Blue Cap) 18+ 04/19/19 21 Pneumococcal Conjugate PCV 13 08/25/2017 Pneumococcal Polysaccharide PPV23 10/28/2017 Tetanus Toxoid, Unspecified 07/04/2015 Family History Medical History Relation Name Comments Conversions - Other Father Autoimmu ne liver disease Hypertension Father Cardiac disorder Mother Heart disease Mother Anesthesia problems Neg Hx Relation Name Status Comments Father Mother Social History Tobacco Use Types Packs/Day Years Used Date Smoking Tobacco: Former Cigarettes 0.5 10 1 990 - 1999 Passive Smoke Exposure: Past Smokeless Tobacco: Never Tobacco Cessation:Counseling Given: Not Answered Alcohol Use Standard Drinks/Week Comments Not Currently [...] drink first t caron in the morning (EYE-FITTER HAND) to steady your nerves or to get rid of a hangover? 0 04/08/2022 CAGE Questionnaire Score 0 023 PHQ-2A Answer Date Recorded Patient Health Questionnaire-2 Score 0 05/29/2022 Comments No Sex and Gender Information Value Date Recorded Sex Assigned at Not on file Legal Sex Female 8:06 PM EDT Gender Identity Not on file Sexual Orientation Not on file Last Filed Vital Signs Vital Sign Reading Time Taken Comments Blood Pressure 161/76 06/09/2024 7:43 AM EDT Pulse 67 06/09/2024 7:43 AM EDT Temperature 36.2 C (97.2 F) 06/09/2024 7:43 AM EDT Respiratory Rate 16 06/09/2024 7:43 AM EDT Oxygen Saturation 95% 06/09/2024 7:43 AM EDT Inhaled Oxygen Concentration - - Weight 44 kg (97 lb) 06/09/2024 7:43 AM EDT Height 157.5 cm (5' 2 ) 06/09/2024 7:43 AM EDT Body Mass Index 17.74 06/09/2024 7:43 AM EDT Plan of Treatment Upcoming Encounters Date Type Department Care Team (Late st Contact Info) Description 09/09/2024 11:00 AM EDT Social Work [facility] [address] [facility] [address] [place] [address] Cassia Verma [address] [address] Health Maintenance Due Date Last Done Comments [facility]-Medicare Annual Wellness (AWV) 1970 [facility]-Infant/Child/Adol SDOH Screenings 1970 [facility]- SDOH Screenings 10/17/1989 [facility]-Adult SDOH Screenings 10/17/1989 [facility]-Pap Smear 04/19/1999 04/18/1996, 12/25/1995 [facility]-Cervical Cancer Screening 10/17/2001 [facility]-HPV/Cotest 10/17/2001 04/18/1996, 12/25/1995 CT Colonography 10/17/2016 FIT-DNA 10/17/2016 FIT 10/17/2016 FOBT 10/17/2016 Sigmoidoscopy 10/17/2016 [facility]-Breast Cancer Screening 10/17/2021 [facility]-Zoster Vaccines (1 of 2) 10/17/2021 [facility]-Pneumococcal Vaccine: 50+ Years (3 of 3 - PPSV23, PCV20 or PCV21) 10/28/2022 10/28/2017, 08/25/2017 CCM-WPNNG-63 Vaccine (3 - season) 2023 01/11/2021, 04/18/2020 Colonoscopy 12/26/2023 09/25/2023, 12/10, 06/12/2022, Additional history exists [facility]-Colorectal Cancer Screening 12/26/2023 [facility]-Influenza Vaccine (Season Ended) 2024 11/05/2019, 12/15/2018, 10/28/2017, Additional history exists [facility]-Hepatitis B Vaccines (6 of 6 - Risk Dialysis 4-dose series) 01/15/2025 01/16/2024, 10/17/2023, 08/29/2023, Additional history exists [facility]-Depression Screening 06/09/2025 06/09/2024 [facility]-DTaP,Tdap,and Td Vaccines (2 - Td or Tdap) 07/03/2025 07/04/2015 [facility]-Hepatitis C Screening Completed 2022, 01/03/2022, 01/03/2022, Additional history exists [facility]-Hepatitis A Vaccines Completed 024, 08/29/2023, 07/29/2018, Additional history exists [facility]-HIV Screening Completed 02/24/2024, , 01/03/2022, Additional history exists HPV Vaccines Aged Out No longer eligi ble based on patient's age to complete this topic [facility]-HIB Vaccines Aged Out No longer e ligible based on patient's age to complete this topic [facility]-IPV Vaccines Aged Out No longer e ligible based on patient's age to complete this topic [facility]-Rotavirus Vaccines Aged Out No lo nger eligible based on patient's age to complete this topic Medical Devices Implanted Type Area Shade Classifier Device Identifier Shelf Expiration Date Model / Serial / Lot Duraclip 11mm - [id number] Implanted:Qty: 1 on 06/12/2022 by Byron Dixon MD at [facility]-[id number] 12/04/2023 [id number] / / [id number] Duraclip 16mm - [id number] Implanted:Qty: 1 on 12/25/2022 by Byron Dixon MD at [facility]-[id number] 12/10/2023 [id number] / / [id number] Duraclip 16mm - [id number] Implanted:Qty: 1 on 12/25/2022 by Byron Dixon MD at [facility]-[id number] 06/01/2024 [id number] / / [id number] Duraclip 11mm - [id number] Implanted:Qty: 1 on 12/25/2022 by Byron Dixon MD at [facility]-[id number] 02/25/2024 [id number] / / [id number] Procedures Procedure Name Priority Date/Time Associated Diagnosis Comments DNA ISOLATION AND HOLD (HLA) Routine 06/09/2024 10:01 AM EDT End stage renal disease ([facility]) ABO/RH Routine 06/09/2024 10:01 AM EDT End stage renal disease ([facility]CC) HEMOGLOBIN A1C Routine 06/09/2024 10:01 AM EDT Encounter for screening for diabetes mellitus End stage renal disease ([facility]/HCC) NICOTINE AND COTININE METABOLITE, SERUM, QUANTITATIVE Routine 06/09/2024 10:01 AM EDT End stage renal disease (CMS/HCC) SERUM DRUG SCREEN Routine 06/09/2024 10: 01 AM EDT Patient's noncompliance with other medical treatment and regimen for other reason End stage renal disease (CMS/HCC) HLA-NGS HIGH RESOLUTION TYPING SOLID ORGAN PATIENT Routine 06/09/2024 10:01 AM EDT End stage renal disease (CMS/HCC) HLA ANTIBODY TESTING (LSA) Routine 06/09/2024 10:01 AM EDT End stage renal disease ([facility]/HCC) COLONOSCOPY Routine 12/25/2022 8:37 AM EST Sessile colonic polyp ACUTE HEPATITIS PANEL STAT 04/08/2022 4:05 PM EST HIV 1/2 ANTIBODY/ANTIGEN SCREEN WITH REFLEX TO HIV I/II DIFFERENTIATION STAT 01/03/2022 3:27 PM EST CYTO DATA CONVERSION Routine 04/18/1996 12:00 AM EST from Last 3 Months or Most Recently Relevant to Health Maintenance Results * HLA NGS High Resolution Typing Solid Organ Patient (06/09/2024 10:01 AM EDT) Blood Venous blood specimen / Unknown Venipuncture / Unknown 06/09/2024 10:01 AM EDT 06/09/2024 10:18 AM EDT Ankita Vicente MD LAB BLOOD ORDERABLES Final Resul t Performing Organization Address [facility] [[email or web address]] de Phone Number [facility] [address] [place] [address], * DNA Isolation and Hold (HLA) (06/09/2024 10:01 AM EDT) Blood Venous blood specimen / Unknown Venipuncture / Unknown 06/09/2024 10:01 AM EDT 06/09/2024 10:18 AM EDT Ankita Vicente MD LAB MOLECULAR DIAGNOSTICS ORDERA BLES Final Result Performing Organization Address [facility] de Phone Number [facility] [address] [place] [address], * HLA Antibody Testing (LSA) (06/09/2024 10:01 AM EDT) Blood Venous blood specimen / Unknown Venipuncture / Unknown 06/09/2024 10:01 AM EDT 06/09/2024 10:48 AM EDT Ankita Vicente MD LAB BLOOD ORDERABLES Final Resul t Performing Organization Address [email or web address] de Phone Number [facility] [address] [place] [address], * Serum Drug Screen (06/09/2024 10:01 AM EDT) 9 Carboxy THC <5 <5 ng/mL 06/11/2024 4:19 PM EDT [facility] Alprazolam <5 <5 ng/mL 06/11/2024 4:19 PM EDT [facility] Amphetamine <10 <10 ng/mL 06/11/2024 4:19 PM EDT [facility] Benzolyecgonine <20 <20 ng/mL 4:19 PM EDT [facility] Buprenorphine <1.0 <1.0 ng/mL 06/11/2024 4:19 PM EDT [facility] Butalbital <50 <50 ng/mL 06/11/2024 4:19 PM EDT [facility] Clonazepam <5 <5 ng/mL 06/11/2024 4:19 PM EDT [facility] Codeine <5 <5 ng/mL 06/11/2024 4:19 PM EDT [facility] Diazepam <5 <5 ng/mL 06/11/2024 4:19 PM EDT [facility] Fentanyl <1 <1 ng/mL 06/11/2024 4:19 PM EDT [facility] Hydrocodone <2 <2 ng/mL 06/11/2024 4:19 PM EDT [facility] Hydromorphone <5 <5 ng/mL 06/11/2024 4:19 PM EDT [facility] Lorazepam <5 <5 ng/mL 06/11/2024 4:19 PM EDT [facility] MDA <10 <10 ng/mL 06/11/2024 4:19 PM EDT [facility] MDMA <10 <10 ng/mL 06/11/2024 4:19 PM EDT [facility] Meperidine <5 <5 ng/mL 06/11/2024 4:19 PM EDT [facility] Methadone <10 <10 ng/mL 06/11/2024 4:19 PM EDT [facility] Methadone Metabolite <10 <10 ng/mL 04/2024 4:19 PM EDT [facility] Methamphetamine <10 <10 ng/mL 4:19 PM EDT [facility] Midazolam <5 <5 ng/mL 06/11/2024 4:19 PM EDT [facility] Morphine <2 <2 ng/mL 06/11/2024 4:19 PM EDT [facility] Norbuprenorphine <5 <5 ng/mL 06/12/19 4:19 PM EDT [facility] Nordiazepam <10 <10 ng/mL 06/11/2024 4:19 PM EDT [facility] Oxazepam <5 <5 ng/mL 06/11/2024 4:19 PM EDT [facility] Oxycodone <2 <2 ng/mL 06/11/2024 4:19 PM EDT [facility] Oxymorphone <2 <2 ng/mL 06/11/2024 4:19 PM EDT [facility] Phenobarbital <50 <50 ng/mL 06/11/2024 4:19 PM EDT [facility] Temazepam <5 <5 ng/mL 06/11/2024 4:19 PM EDT [facility] Tramadol <20 <20 ng/mL 06/11/2024 4:19 PM EDT [facility] Blood Venous blood specimen / Unknown Venipuncture / Unknown 06/09/2024 10:01 AM EDT 06/09/2024 10:20 AM EDT Narrative [facility] - 06/11/2024 4:19 PM EDT Test performed by LC-MS/MS at the [facility]. This test was developed and its performance characteristics determined by [facility]. It has not been cleared or approved by the FDA. The laboratory is regulated under CLIA as qualified to perform high-complexity testing. This test is used for clinical purposes. us Ankita Vicente MD LAB BLOOD ORDERABLES Final Resul t [facility] [address] [place] [address] * Nicotine Cotinine Metabolite (06/09/2024 10:01 AM EDT) NICOTINE <5 <5 ng/mL 06/11/2024 2:5 9 PM EDT [facility] Cotinine <5 <5 ng/mL 06/11/2024 2:5 9 PM EDT [facility] Blood Venous blood specimen / Unknown Venipuncture / Unknown 06/09/2024 10:01 AM EDT 06/09/2024 10:20 AM EDT Narrative [facility] - 06/11/2024 2:59 PM EDT Testing performed by LC-MS/MS at the [facility]/Toxicology [facility]. This test was developed and its performance characteristics determined by [facility]. This assay has not been cleared by the FDA. The laboratory is regulated under CLIA as qualified to perform high-complexity testing. This test is used for clinical purposes. us Ankita Vicente MD LAB BLOOD ORDERABLES Final Resul t [facility] [address] [place] [address] * ABO/Rh (06/09/2024 10:01 AM EDT) ABO/Rh O Positive 06/09/2024 9:57 AM EDT BLOOD BANK Blood Venous blood specimen / Unknown Venipuncture / Unknown 06/09/2024 10:01 AM EDT 06/09/2024 10:14 AM EDT us Ankita Vicente MD LAB BLOOD BANK TEST ORDERABLES F inal Result Performing Organization Address [facility] Co de Phone Number BLOOD BANK [address] [place] [address] * Hemoglobin A1c (06/09/2024 10:01 AM EDT) Hemoglobin A1c 4.9 <5.7 % 06/09/2024 12:00 PM EDT [facility] Blood Venous blood specimen / Unknown Venipuncture / Unknown 06/09/2024 10:01 AM EDT 06/09/2024 10:19 AM EDT Narrative [facility] - 06/09/2024 12:00 PM EDT HA1C Interpretive Data: Diagnosis of Diabetes: Diabetic > or = 6.5% Pre-diabetic 5.7 to 6.4% Non-diabetic < or = 5.6% Glycemic Targets for Type I and Type II Diabetics: Non- Adults <7.0% Adults <6.0% Children and Adolescents <7.5% Source: [place] [employer]. Standards of medical care in diabetes,2017. Diabetes Care.2017:40 (suppl 1):S1-S135. us Ankita Vicente MD LAB BLOOD ORDERABLES Final Resul t [facility] [address] [place] [address] * Colonoscopy w EMR (12/25/2022 8:37 AM EST) Anatomical Region Laterality Modality Endoscopy Narrative 12/25/2022 9:42 AM EST Table formatting from the original result was not included. Impression: Due to patient's known difficult colon, water emersion, pediatric colonoscope and abdominal pressure was used on initial scope insertion to aid in procedure. In the mid ascending colon one 15 mm adenomatous-appearing, semi-pedunculated polyp was seen. First, the lesion was carefully washed and examined. The polyp was about 15 mm in size and semi-sessile. A 25 Ga injection needle was used to inject 3 mL of Eleview into the submucosa at the base of the polyp. This resulted in adequate lift of the polyp and surrounding tissue. Next a 13 mm [employer] Rotatable snare was used for en-block resection of the polyp. The polyp was taken in a total of 1 piece. Immediately following resection, moderate bleeding was noted from the resection base. The bleeding was immediately treated with snare tip soft coag which resulted in slowed bleeding. The area was additionally treated with injection of 1 mL of dilute epinephrine. This too slowed but did not completely stop the bleeding. Finally, two 16 mm hemostatic clips and a single 11 mm hemostatic clips were applied over the lesion defect. Following clip placement, no additionally bleeding was observed from the resection site. The area of the resection was carefully washed and examined for an additional 10 minutes and no further bleeding was observed. The resection specimen was cut into three pieces and retrieved using scope channel suction and a polyp trap. One 30 mm sessile, adenomatous-appearing polyp in the transverse colon, immediately adjacent to a tattoo. The polyp was in the 12 o'clock position and was in an unstable scope position. Multiple attempts at reduction, stiffening, and repositioning were not able to achieve a stable scope position for resection and so resection was not attempted. Few small diverticula of mild severity in the sigmoid colon Internal small hemorrhoids Recommendations Await pathology results Discussed admission for observation but Ms. Hatch does not wish to be admitted. We discussed that she is to report immediately to her nearest emergency center should she have red blood per rectum, dark black, stick stools, maroon stools or clots. Liquid diet 12/25/22-12/27/22 Soft diet 12/28/22-01/02/23 Resume previous activity tomorrow Indication For resection of known polyp of the transverse colon. Medications See anesthesia record for anesthesia administered medications. Staff Staff Role Byron Dixon MD Proceduralist Herve Kelly RN Endo Nurse Chet Jules, HONORIO Leyva, Windy Endo Carpenter [employer] Grisel Tsai MD Anesthesiologist Preprocedure A history and physical has been performed, and patient medication allergies have been reviewed. The patient's tolerance of previous anesthesia has been reviewed. The risks and benefits of the procedure and the sedation options and risks were discussed with the patient. All questions were answered and informed consent obtained. Details of the Procedure The patient underwent general anesthesia, which was administered by an anesthesia professional. The patient's blood pressure, heart rate, level of consciousness, respirations and oxygen were monitored throughout the procedure. A digital rectal exam was performed. A perianal exam was performed. The scope was introduced through the anus and advanced to the cecum. Retroflexion was performed in the rectum. The quality of bowel preparation was evaluated using the [place] Bowel Preparation Scale with scores of: right colon = 2, transverse colon = 2, left colon = 2. The total BBPS score was 6. Bowel prep was adequate. The patient's estimated blood loss was moderate (5+ mL). The procedure was difficult due to fixation and tortuous colon. In response to procedure difficulty, counter pressure was applied, the instrument was changed to a pediatric endoscope, loop reduction was employed and water immersion technqiue was employed. The patient tolerated the procedure well. There were no apparent adverse events. Attestation I personally performed the entire procedure Events Procedure Events Event Event Time ENDO SCOPE IN TIME 12/25/2022 7:41 AM ENDO CECUM REACHED 12/25/2022 7:47 AM ENDO SCOPE OUT TIME 12/25/2022 8:33 AM Specimens ID Type Source Tests Collected by Time A : Ascending colon polyp Tissue Ascending Colon SURGICAL PATHOLOGY EXAM Byron Dixon MD 12/25/2022 0750 Findings One 15 mm adenomatous-appearing, semi-pedunculated polyp in the ascending colon; completely removed target lesion en bloc by EMR and retrieved specimen. EMR was performed with a hot snare. Post-procedure bleeding was visualized; placed 3 clips successfully (clips are MRI conditional); hemostasis achieved; injected 1 mL of epinephrine to address bleeding; hemostasis achieved One 30 mm sessile, adenomatous-appearing polyp in the transverse colon Few small diverticula of mild severity in the sigmoid colon Internal small hemorrhoids Byron Dixon MD GI PROCEDURE ORDERABLES Fin al Result * Acute Hepatitis Panel (04/08/2022 4:05 PM EST) Hepatitis B Surf Antigen Negative Negative 04/08/2022 5:40 PM EST [facility] Hepatitis C Antibody Negative Negative 04/08/2022 5:40 PM EST [facility] Hepatitis A Antibody IgM Negative Negative 04/08/2022 5:40 PM EST [facility] Hepatitis B Core Antibody IgM Negative Negative 04/08/2022 5:40 PM EST [facility] Blood Venous blood specimen / Unknown Venipuncture / Unknown 04/08/2022 4:05 PM EST 04/08/2022 4:13 PM EST Zuleyma Abraham MD LAB BLOOD ORDERABLES Final Result [facility] [address] [place] [address] * HIV 1 & 2 Antibody/Antigen Screen (01/03/2022 3:27 PM EST) HIV 1 & 2 Antibody/Anti gen Screen Nonreactive Nonreactive 01/03/2022 5:33 PM EST [facility] Blood Venous blood specimen / Unknown Venipuncture / Unknown 01/03/2022 3:27 PM EST 01/03/2022 3:54 PM EST Macho España MD LAB BLOOD ORDERABLES Tiana ruiz Result [facility] [address] [place] [address] * Cytology (04/18/1996 12:00 AM EST) 04/18/1996 04/20/1996 Narrative [facility] - 05/06/1996 12:00 AM EST [facility] MR #: [facility] [address] [place], [place] [address] 1970 (Age: 25) F Collect Date: 04/18/1996 00:00 Receipt Date: 04/20/1996 00:00 Page 1 DEPARTMENT OF PATHOLOGY AND LABORATORY MEDICINE CYTOPATHOLOGY REPORT Email: [email or web address] [phone] * Converted Case * This report may not match the original report format ATTENDING MD/Practitioner: Monika Jaimes MD Service: Location: Reported: 05/06/1996 00:00 Collected: 04/18/1996 00:00 INTERPRETATION CERVICAL SCRAPE/ENDOCERVICAL SWAB WITHIN NORMAL LIMITS. SATISFACTORY BUT LIMITED BY SPARSE TO NO ENDOCERVICAL CELLS. Electronically Signed Out By Jazmín Cisneros JOLANTA Carter (ASCP) No Signature Required JOLANTA Ashton (ASCP) Cervical cytology is a screening test primarily for squamous cancers and precursors and has associated false negative and positive results. New technologies such as liquid based sampling may decrease but will not eliminate all false negative results. Regular screening and follow-up of unexplained clinical signs and symptoms are recommended to minimize false negative results. Please see the ASCCP website (www.asccp.org) for followup recommendations. If HPV testing was requested, correlation with the results is suggested (please call Microbiology at [phone] for results). CLINICAL INFORMATION: Menstrual History: {Not Provided} Date of Last Menstrual Period: {Not Provided} SPECIMEN DESCRIPTION: A: CERVICAL/VAGINAL SMEAR, PAP ICD: F: {Not Entered} SNOMED CODES: 1; [id number] In cases where a pathologist has signed out the report, the service has been rendered in part by a resident. The signing pathologist has performed and is responsible for the reported pathologic evaluation. us Historical Provider MD LAB PATHOLOGY ORDERABLES Final Result [facility] from Last 3 Months or Most Recently Relevant to Health Maintenance Insurance [facility] [address] [facility] Advance Directives * Full Code (Latest Code Status on File) Date Activated Date Inactivated Comments 04/08/2022 12:54 PM 04/09/2022 4:01 PM Question Answer Comments Patient has decision-making capacity? Yes Care Teams Ball Maker Relationship Specialty Start Date End Date Marcelo Reese MD [address] [place] [address] PCP - General 06/22/20
--- OUTSIDE RECORDS SUMMARY | 2024-08-10 07:51 | XMS_ITS | Encounter Summary ---
Author Organization [facility] Address [address] [place] [address] Care Team Providers Care Licensed Pesticide Applicator Name Role Phone Marcelo Reese MD Primary Care Provider + [phone] Encounter Details Date Type Department Care Team (Late st Contact Info) Description 04/19/2019 Legacy OTTR Encounter Historical OTTR [address] [place] [address] Hamida Delaney [place] [phone] Social History Tobacco Use Types Packs/Day Years Used Date Smoking Tobacco: Never Assessed Comments Unknown Sex and Gender Information Value Date Recorded Sex Assigned at Not on file Legal Sex Female 8:06 PM EDT Gender Identity Not on file Sexual Orientation Not on file documented as of this encounter Miscellaneous Notes * Progress Notes - Hamida Delaney W - 04/19/2019 5:00 PM EDT Ms. Hatch saw Dr. Michelle on 04/13/19: Below is plan from his note. 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 vit d high, hold dose, cont off calcitriol, advised continued phoslo 2-4 with meals HTN, coreg 12.5 bid, amlodipine 5mg RTC 2m. - Note to Dr. Vicente: plan is to revisit PDC placement in 2 months. documented in this encounter Plan of Treatment Upcoming Encounters Date Type Department Care Team (Late st Contact Info) Description 09/09/2024 11:00 AM EDT Social Work [facility] [address] [place] [address] Cassia Verma [facility] [address] [place] [phone] documented as of this encounter Visit Diagnoses Not on filedocumented in this encounter Care Teams Licensed Pesticide Applicator Relationship Specialty Start Date End Date Marcelo Reese MD 1210 [facility] [address] [place] [address] PCP - General 06/22/20 documented as of this encounter
--- OUTSIDE RECORDS SUMMARY | 2024-08-10 07:51 | XMS_ITS | Encounter Summary ---
Author Organization [facility] Address [address] [place] [address] Care Team Providers Care Auctioneer Tobacco Name Role Phone Marcelo Reese MD Primary Care Provider + [phone] Encounter Details Date Type Department Care Team (Late st Contact Info) Description 04/26/2020 Legacy OTTR Encounter Historical OTTR [address] [place] [address] Nusrat Butler RN [facility]-TRANSPLANT ADMINISTRATION [address] [place] [address] Social History Tobacco Use Types Packs/Day Years [...] encounter Miscellaneous Notes * Progress Notes - Nusrat Butler RN - 04/26/2020 10:40 AM EDT Pt. having PD catheter placed w/ Dr. Shah. Closed surgical referral. documented in this encounter Plan of Treatment Upcoming Encounters Date Type Department Care Team (Late st Contact Info) Description 09/09/2024 11:00 AM EDT Social Work [facility] [address] [facility] [address] [place] [address] Cassia Verma [address] [address] documented as of this encounter Visit Diagnoses Not on filedocumented in this encounter Care Teams Auctioneer Tobacco Relationship Specialty Start Date End Date Marcelo Reese MD 1210 [facility] [address] [place] [address] PCP - General 06/22/20 documented as of this encounter
--- OUTSIDE RECORDS SUMMARY | 2024-08-10 07:51 | XMS_ITS | Encounter Summary ---
Author Organization [facility] Address [address] [place] [id number] Care Team Providers Care Corking Machine Operator Name Role Phone Marcelo Reese MD Primary Care Provider + [phone] Encounter Details Date Type Department Care Team (Late st Contact Info) Description 04/04/2020 Legacy OTTR Encounter Historical OTTR [address] [place] [address] Hamida Delaney [place] [phone] Social History Tobacco Use Types Packs/Day Years [...] * Progress Notes - Hamida Delaney - 04/04/2020 10:58 AM EST Ms. Hatch saw Dr. 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 Kimbrough for catheter placement PDC to be placed by Dr. Kimbrough documented in this encounter Plan of Treatment Upcoming Encounters Date Type Department Care Team (Late st Contact Info) Description 09/09/2024 11:00 AM EDT Social Work [facility] [address] [place] [address] Cassia Verma [facility] [address] [place] [address] documented as of this encounter Visit Diagnoses Not on filedocumented in this encounter Care Teams Corking Machine Operator Relationship Specialty Start Date End Date Marcelo Reese MD 1210 [facility] [address] [place] [address] PCP - General 06/22/20 documented as of this encounter
--- OUTSIDE RECORDS SUMMARY | 2024-08-10 07:51 | XMS_ITS | Encounter Summary ---
Author Organization [facility] Address [address] [place] [address] Care Team Providers Care Diabetic Educator Name Role Phone Marcelo Reese MD Primary Care Provider + [phone] Encounter Details Date Type Department Care Team (Late st Contact Info) Description 04/03/2020 Legacy OTTR Encounter Historical OTTR [address] [place] [address] Jumana Ku, RN CH-TRANSPLANT ADMINISTRATION Social History [...] * Progress Notes - Jumana Ku - 04/03/2020 12:07 PM EST Received secure email back from Jose Miguel: Yes, she needs to start again. And, no it will not harm her. Contacted patient and informed her that it will not harm her to start a new series, but unfort. shecannot count the shot that she already received as the first shot with a new drug series, so she will have to start over. She confirmed understanding and stated she will get started with the new Hep B series. documented in this encounter Plan of Treatment Upcoming Encounters Date Type Department Care Team (Late st Contact Info) Description 09/09/2024 11:00 AM EDT Social Work [facility] [address] [place] [address] Cassia Verma [facility] [address] [place] [phone] documented as of this encounter Visit Diagnoses Not on filedocumented in this encounter Care Teams Diabetic Educator Relationship Specialty Start Date End Date Marcelo Reese MD 1210 [facility] [address] [place] [address] PCP - General 06/22/20 documented as of this encounter
--- OUTSIDE RECORDS SUMMARY | 2024-08-10 07:51 | XMS_ITS | Encounter Summary ---
Author Organization [facility] Address [address] [place] [address] Care Team Providers Care Airline Radio Operator Name Role Phone Marcelo Reese MD Primary Care Provider + [phone] Encounter Details Date Type Department Care Team (Late st Contact Info) Description 04/02/2020 Legacy OTTR Encounter Historical OTTR [address] [place] [address] Jumana Ku, RN CH-TRANSPLANT ADMINISTRATION Social History [...] * Progress Notes - Jumana Ku - 04/02/2020 4:15 PM EST Received call from patient who stated she went to a local pharmacy and tarted a Hep B vaccine back in the fall. She stated she was given Heplisav-B and was informed it would be a 2 shot series. She has been periodically checking back with them and given the answer that they will order it. each time. This last time she asked the pharmacist what was going on and was informed that they did not think they would be able to get it for her. She stated they then informed her that they could not give her any other brand of the Hep B vaccine because your not supposed to mix them. She checked with all of her local pharmacies and her doctor and was not able to locate the vaccine. [facility] told her it would be fine to start a new series, but she would have to start over. I informed her I felt the health department was correct on this, however this is outsideof my expertise, so I could check with another pharmacist. She is confused and concerned this will have a negative effect on her. I explained that I would check with the transplant pharmacist for a second opinion and get back in touch once I have an answer. Asked that she wait to strat the new series until I got back to her. She confirmed understanding. Note to Evy for further information. documented in this encounter Plan of Treatment Upcoming Encounters Date Type Department Care Team (Late st Contact Info) Description 09/09/2024 11:00 AM EDT Social Work [facility] [address] [place] [address] Cassia Verma [facility] [address] [place] [phone] documented as of this encounter Visit Diagnoses Not on filedocumented in this encounter Care Teams Airline Radio Operator Relationship Specialty Start Date End Date Marcelo Reese MD 1210 [facility] [address] [address] PCP - General 06/22/20 documented as of this encounter
--- OUTSIDE RECORDS SUMMARY | 2024-08-10 07:51 | XMS_ITS | Encounter Summary ---
Author Organization [facility] Address [address] [place] [address] Care Team Providers Care Process Lead Name Role Phone Marcelo Reese MD Primary Care Provider + [phone] Encounter Details Date Type Department Care Team (Late st Contact Info) Description 05/15/2020 Legacy OTTR Encounter Historical OTTR [address] [place] [address] Paz Downey [place] [phone] Social History Tobacco Use Types Packs/Day Years [...] * Progress Notes - Paz Downey - 05/15/2020 8:15 AM EDT Mailed PRA order to pt's home, as requested. documented in this encounter Plan of Treatment Upcoming Encounters Date Type Department Care Team (Late st Contact Info) Description 09/09/2024 11:[address] [facility] [address] [place] [address] Cassia Verma [address] [address] documented as of this encounter Visit Diagnoses Not on filedocumented in this encounter Care Teams Process Lead Relationship Specialty Start Date End Date Marcelo Reese MD [facility]0 [place] [phone] PCP - General 06/22/20 documented as of this encounter
--- OUTSIDE RECORDS SUMMARY | 2024-08-10 07:51 | XMS_ITS | Encounter Summary ---
Author Organization [facility] Address [address] [place] [address] Care Team Providers Care Indigo Mixer Name Role Phone Marcelo Reese MD Primary Care Provider + [phone] Encounter Details Date Type Department Care Team (Late st Contact Info) Description 07/01/2019 Legacy OTTR Encounter Historical OTTR [address] [place] [address] Hamida Delaney [place] [phone] Social History Tobacco Use Types Packs/Day Years Used Date Smoking Tobacco: Never Assessed Comments Unknown Sex and Gender Information Value Date Recorded Sex Assigned at Not on file Legal Sex Female 8:06 PM EDT Gender Identity Not on file Sexual Orientation Not on file documented as of this encounter Miscellaneous Notes * Progress Notes - Hamida Delaney - 07/01/2019 12:[address] Michelle's note from 06/14 will re-evaluate need for PD in two months. [facility] rescheduled to check back. - Note to Dr. Vicente to update Discussion/ Summary 48F w CKD5 here for [...] negative Elevated uric acid, better, level 5, repeat next visit; allopurinol 300mg Secondary HPT; PTH 367 today, will trend. vit d high, hold dose, cont off calcitriol, advised continued phoslo 2-4 with meals HTN, coreg 12.5 bid, amlodipine 5mg RTC 2m. documented in this encounter Plan of Treatment Upcoming Encounters Date Type Department Care Team (Late st Contact Info) Description 09/09/2024 11:00 AM EDT Social Work [facility] [address] [facility] [address] [place] [address] Cassia Verma [facility] [address] [place] [phone] documented as of this encounter Visit Diagnoses Not on filedocumented in this encounter Care Teams Indigo Mixer Relationship Specialty Start Date End Date Marcelo Reese MD 1210 [facility] [address] [place] [address] PCP - General 06/22/20 documented as of this encounter
--- OUTSIDE RECORDS SUMMARY | 2024-08-10 07:51 | XMS_ITS | Encounter Summary ---
Author Organization [facility] Address [address] [place] [address] Care Team Providers Care Clinical Product Manager Name Role Phone Marcelo Reese MD Primary Care Provider + [phone] Encounter Details Date Type Department Care Team (Late st Contact Info) Description 03/23/2019 Legacy OTTR Encounter Historical OTTR [address] [place] [address] Jumana Ku, RN CH-TRANSPLANT ADMINISTRATION Social History Tobacco Use Types Packs/Day Years Used Date Smoking Tobacco: Never Assessed Comments Unknown Sex and Gender Information Value Date Recorded Sex Assigned at Not on file Legal Sex Female 8:06 PM EDT Gender Identity Not on file Sexual Orientation Not on file documented as of this encounter Miscellaneous Notes * Progress Notes - Jumana Ku - 03/23/2019 4:17 PM EST Current selection criteria and SRTR data (February 2019 release) mailed to patient's home. documented in this encounter Plan of Treatment Upcoming Encounters Date Type Department Care Team (Late st Contact Info) Description 09/09/2024 11:00 AM EDT Social Work [facility] [address] [place] [address] Cassia Verma [facility] [address] [place] [address] documented as of this encounter Visit Diagnoses Not on filedocumented in this encounter Care Teams Clinical Product Manager Relationship Specialty Start Date End Date Marcelo Reese MD [address] [facility] [address] [place] [address] PCP - General 06/22/20 documented as of this encounter
--- OUTSIDE RECORDS SUMMARY | 2024-08-10 07:51 | XMS_ITS | Encounter Summary ---
Author Organization [facility] Address [address] [place] [phone] Care Team Providers Care Pulpwood Dealer Name Role Phone Marcelo Reese MD Primary Care Provider + [phone] Encounter Details Date Type Department Care Team (Late st Contact Info) Description 05/17/2019 Legacy OTTR Encounter Historical OTTR [address] [place] [address] Jumana Ku, RN CH-TRANSPLANT ADMINISTRATION Social History Tobacco Use Types Packs/Day Years Used Date Smoking Tobacco: Never Assessed Comments Unknown Sex and Gender Information Value Date Recorded Sex Assigned at Not on file Legal Sex Female 8:06 PM EDT Gender Identity Not on file Sexual Orientation Not on file documented as of this encounter Miscellaneous Notes * Progress Notes - Jumana Ku - 05/17/2019 10:42 AM EDT SCM orders placed for annual. Please schedule for August or per COVID 19 crisis protocol. No local items needed. Remind mammogram will be due in October. documented in this encounter Plan of Treatment Upcoming Encounters Date Type Department Care Team (Late st Contact Info) Description 09/09/2024 11:00 AM EDT Social Work [facility] [address] [facility] [address] [place] [address] Cassia Verma [facility] 800 [place] [address] documented as of this encounter Visit Diagnoses Not on filedocumented in this encounter Care Teams Pulpwood Dealer Relationship Specialty Start Date End Date Marcelo Reese MD 1210 [facility] [address] [place] [address] PCP - General 06/22/20 documented as of this encounter
--- OUTSIDE RECORDS SUMMARY | 2024-08-10 07:51 | XMS_ITS | Encounter Summary ---
Author Organization [facility] Address [address] [place] [address] Care Team Providers Care It Sales Executive Name Role Phone Marcelo Reese MD Primary Care Provider + [phone] Encounter Details Date Type Department Care Team (Late st Contact Info) Description 06/06/2020 Legacy OTTR Encounter Historical OTTR [address] [place] [address] ProviderDebbie MD [address] [place] [address] Social History Tobacco Use Types Packs/Day Years [...] encounter Miscellaneous Notes * Progress Notes - ProviderDebbie MD - 06/06/2020 1:23 PM EDT Dialysis request form has been faxed to dialysis center. documented in this encounter Plan of Treatment Upcoming Encounters Date Type Department Care Team (Late Contact Info) Description 09/09/2024 11:00 AM EDT Social Work [facility] [address] [facility] [address] [place] [address] [facility]a [facility] 800 [place] [address] documented as of this encounter Visit Diagnoses Not on filedocumented in this encounter Care Teams It Sales Executive Relationship Specialty Start Date End Date Marcelo Reese MD [address] [place] [address] PCP - General 06/22/20 documented as of this encounter
--- OUTSIDE RECORDS SUMMARY | 2024-08-10 07:51 | XMS_ITS | Encounter Summary ---
Author Organization [facility] Address [address] [place] [address] Care Team Providers Care Braiding Machine Tender Name Role Phone Marcelo Reese MD Primary Care Provider + [phone] Encounter Details Date Type Department Care Team (Late st Contact Info) Description 08/08/2019 Legacy OTTR Encounter Historical OTTR 800 [place] [address] Paz Downey [place] [phone] Social History Tobacco Use Types Packs/Day Years Used Date Smoking Tobacco: Never Assessed Comments Unknown Sex and Gender Information Value Date Recorded Sex Assigned at Not on file Legal Sex Female 8:06 PM EDT Gender Identity Not on file Sexual Orientation Not on file documented as of this encounter Miscellaneous Notes * Progress Notes - Paz Downey - 08/08/2019 12:19 PM EDT Per TC, okay to move pt's annual appts to the first available . Pt's 09/18 annual eval has been r/s'd to 10/19. Updated APM, SCM, OTTR, Stella, and K [address] calendar. Called and spoke w/ pt. Gave her updated 10/19 annual appt details and she verbalized understanding of all. Mailed 10/19 annual eval appt schedule w/ maps, instructions, and annual questionnaire to pt. documented in this encounter Plan of Treatment Upcoming Encounters Date Type Department Care Team (Late st Contact Info) Description 09/09/2024 11:00 AM EDT Social Work [facility] [address] [place] [address] Cassia Verma [facility] [address] [place] [phone] documented as of this encounter Visit Diagnoses Not on filedocumented in this encounter Care Teams Braiding Machine Tender Relationship Specialty Start Date End Date Marcelo Reese MD 1210 [facility] [address] [place] [address] PCP - General 06/22/20 documented as of this encounter
--- OUTSIDE RECORDS SUMMARY | 2024-08-10 07:51 | XMS_ITS | Encounter Summary ---
Author Organization [facility] Address [address] [place] [address] Care Team Providers Care Campground Cleaning Attendant Name Role Phone Marcelo Reese MD Primary Care Provider [phone] Reason for Referral * Consultation (Routine) - Authorized Specialty Diagnoses / Procedures Referred By Fara lan Referred To Contact Transplant Diagnoses Pre-transplant evaluation for kidney transplant Macho España MD [address] [address] Phone: tel: fax: Referral ID Status Reason Start Date Expiration Date Visits Requested Visits Authorized [id number] Authorized Specialty Services Required 06/15/2024 12/15/2025 1 1 Scheduling Instructions Please schedule with Cassia Encounter Details Date Type Department Care Team (Late st Contact Info) Description 06/15/2024 Telephone [facility] [address] [address] [place] [address] Social History Tobacco Use Types [...] drink first t caron in the morning (EYE-BASS FISHER) to steady your nerves or to get [...] Date Author No 01/03/2022 5:36 PM Ajay Kaminski RN documented in this encounter Miscellaneous Notes * Telephone Encounter - Angie Major, RN - 06/15/2024 12:35 PM EDT Starting eval with social work only (Cassia), orders entered and routed for scheduling. documented in this encounter Plan of Treatment Upcoming Encounters Date Type Department Care Team (Late st Contact Info) Description 09/09/2024 11:00 AM EDT Social Work [facility] [address] [place] [address] Cassia Verma [facility] [address] [place] [phone] Scheduled Referrals Name Type Priority Associated Diagnoses Order Schedule Ambulatory referral to Transplant Social Work Outpatient Referral Routine Pre-transplant evaluation for kidney transplant Expected: 06/15/2024 (Approximate), Expires: 12/16/2025 documented as of this encounter Visit Diagnoses Diagnosis Pre-transplant evaluation for kidney transplant- Primary documented in this encounter Additional Health Concerns Assessment Noted Time A fall risk assessment has been complete d for the patient 06/09/2024 7:48 AM EDT A Body Mass Index follow-up plan has been documented for the patient 06/13/2024 11:53 AM EDT documented as of this encounter Care Teams Campground Cleaning Attendant Relationship Specialty Start Date End Date Marcelo Reese MD 1210 [facility] [address] [address] PCP - General 06/22/20 documented as of this encounter
--- OUTSIDE RECORDS SUMMARY | 2024-08-10 07:51 | XMS_ITS | Encounter Summary ---
Author Organization [facility] Address [address] [place] [address] Care Team Providers Care Chief Nursing Officer Name Role Phone Marcelo Reese MD Primary Care Provider [phone] Encounter Details Date Type Department Care Team (Late st Contact Info) Description 07/24/2020 Lab Requisition [facility] [address] [place] [address] Manuel Menon MD [address] [address] Awaiting organ transplant status Social History Tobacco Use Types Packs/Day Years [...] on file documented as of this encounter Plan of Treatment Upcoming Encounters Date Type Department Care Team (Late Contact Info) Description 09/09/2024 11:00 AM EDT Social Work [facility] [address] [address] Cassia [facility] 800 [place] [address] documented as of this encounter Procedures Procedure Name Priority Date/Time Associated Diagnosis Comments HLA ANTIBODY TESTING (LSA) Routine 07/20/2020 11:00 AM EDT Awaiting organ transplant status documented in this encounter Results * HLA Antibody Testing (LSA) (07/20/2020 11:00 AM EDT) Blood Venous blood specimen / Unknown 07/20/2020 11:00 AM EDT 07/24/2020 1:42 PM EDT us Manuel Menon MD LAB BLOOD ORDERABLES Final Res ult Performing Organization Address City/State/[facility] Co de Phone Number [facility] [address] documented in this encounter Visit Diagnoses Diagnosis Awaiting organ transplant status documented in this encounter Care Teams Chief Nursing Officer Relationship Specialty Start Date End Date Marcelo Reese MD [address] [place] [address] PCP - General 06/22/20 documented as of this encounter
--- OUTSIDE RECORDS SUMMARY | 2024-08-10 07:54 | XMS_ITS | Encounter Summary ---
Author Organization [facility] Address [address] [id number] Care Team Providers Care Bean Snapper Name Role Phone Marcelo Reese MD Primary Care Provider [phone] Encounter Details Date Type Department Care Team (Late st Contact Info) Description 11/29/2021 Lab Requisition [facility] [address] [place] [address] Ankita Vicente MD [address] [address] End stage renal disease (CMS/HCC) Social History Tobacco Use Types Packs/Day Years Used Date Smoking Tobacco: Former Cigarettes Smokeless Tobacco: Never Alcohol Use Standard Drinks/Week [...] Description 09/09/2024 11:00 AM EDT Social Work [facility] [address] [address] Cassia Verma [facility] [address] [place] [address] documented as of this encounter Procedures Procedure Name Priority Date/Time Associated Diagnosis Comments DOS REGISTRATION Routine 08/13/2021 7:00 AM EDT End stage renal disease (CMS/HCC) documented in this encounter Results * DOS Registration Request (08/13/2021 7:00 AM EDT) DOS REGISTRATION REQUEST 11/29/2021 11:02 AM EDT HEALTHCARE LAB Comment:For registration req uest only. Other Topography unknown / Unknown 08/13/2021 7:00 AM EDT 11/29/2021 9:46 AM EDT us Ankita Vicente MD LAB BODY FLUIDS AND STOOLS ORDER SHANELL Final Result HEALTHCARE LAB [address] [place] [address] documented in this encounter Visit Diagnoses Diagnosis End stage renal disease (CMS/HCC) End stage renal disease documented in this encounter Additional Health Concerns Assessment Noted Time A fall risk assessment has been complete d for the patient 12/17/2020 2:12 PM EST documented as of this encounter Care Teams Bean Snapper Relationship Specialty Start Date End Date Marcelo Reese MD [facility] [place] [address] PCP - General 06/22/20 documented as of this encounter
--- OUTSIDE RECORDS SUMMARY | 2024-08-10 07:54 | XMS_ITS | Encounter Summary ---
Author Organization [facility] Address [address] [place] [address] Care Team Providers Care Casing Fluid Tender Name Role Phone Marcelo Reese MD Primary Care Provider + [phone] Encounter Details Date Type Department Care Team (Late st Contact Info) Description 06/15/2018 Legacy OTTR Encounter Historical OTTR [address] [place] [address] Paz Downey [address] [id number] Social History Tobacco Use Types Packs/Day Years Used Date Smoking Tobacco: Never Assessed Comments Unknown Sex and Gender Information Value Date Recorded Sex Assigned at Not on file Legal Sex Female 8:06 PM EDT Gender Identity Not on file Sexual Orientation Not on file documented as of this encounter Miscellaneous Notes * Progress Notes - Paz Downey - 06/15/2018 9:44 AM EDT Called pt. No answer, LVM asking for call back to discuss if pt has started dialysis and to obtain pt's current weight. Per Dr. Michelle's 04/19/18 [facility] note, pt's BMI is 20.34 and there is no mentionof pt starting dialysis. Pt does not need two-day stress test. Annual eval scheduled for 08/30/18. Will try calling pt again to obtain info and confirm annual eval on 08/30/18. documented in this encounter Plan of Treatment Upcoming Encounters Date Type Department Care Team (Late st Contact Info) Description 09/09/2024 11:00 AM EDT Social Work [facility] [address] [place] [address] Cassia Verma [facility] [address] [id number] documented as of this encounter Visit Diagnoses Not on filedocumented in this encounter Care Teams Casing Fluid Tender Relationship Specialty Start Date End Date Marcelo Reese MD [address] [facility] [address] [place] [address] PCP - General 06/22/20 documented as of this encounter
--- OUTSIDE RECORDS SUMMARY | 2024-08-10 07:54 | XMS_ITS | Encounter Summary ---
Author Organization [facility] Address [address] [place] [address] Care Team Providers Care Interviewing Clerk Name Role Phone Marcelo Reese MD Primary Care Provider + [phone] Encounter Details Date Type Department Care Team (Late st Contact Info) Description 03/16/2018 [facility] OT[facility] Encounter Historical OTTR [address] [place] [address] Jumana Ku, RN CH-TRANSPLANT ADMINISTRATION Social History Tobacco Use Types Packs/Day Years Used Date Smoking Tobacco: Never Assessed Comments Unknown Sex and Gender Information Value Date Recorded Sex Assigned at Not on file Legal Sex Female 8:06 PM EDT Gender Identity Not on file Sexual Orientation Not on file documented as of this encounter Miscellaneous Notes * Progress Notes - Jumana Ku - 03/16/2018 4:55 PM EST Current selection criteria and SRTR data (February 2018 release) mailed to patient's home. documented in this encounter Plan of Treatment Upcoming Encounters Date Type Department Care Team (Late st Contact Info) Description 09/09/2024 11:[address] [facility] [address] [place] [address] Cassia Verma [facility] [address] [place] [address] documented as of this encounter Visit Diagnoses Not on filedocumented in this encounter Care Teams Interviewing Clerk Relationship Specialty Start Date End Date Marcelo Reese MD [address] [place] [facility] [address] [place] [address] PCP - General 06/22/20 documented as of this encounter
--- OUTSIDE RECORDS SUMMARY | 2024-08-10 07:54 | XMS_ITS | Encounter Summary ---
Author Organization [facility] Address [address] [place] [address] Care Team Providers Care Tuberculosis Specialist Name Role Phone Marcelo Reese MD Primary Care Provider + [phone] Encounter Details Date Type Department Care Team (Late st Contact Info) Description 06/17/2018 [facility] OTTR Encounter Historical OTTR [address] [place] [address] [place] [address] Social History Tobacco Use Types Packs/Day Years Used Date Smoking Tobacco: Never Assessed Comments Unknown Sex and Gender Information Value Date Recorded Sex Assigned at Not on file Legal Sex Female 8:06 PM EDT Gender Identity Not on file Sexual Orientation Not on file documented as of this encounter Miscellaneous Notes * Progress Notes - Paz Downey - 06/17/2018 9:19 PM EDT Mailed 08/30/18 annual eval appt schedule w/ maps, instructions, and annual questionnaire to pt. documented in this encounter Plan of Treatment Upcoming Encounters Date Type Department Care Team (Late Contact Info) Description 09/09/2024 11:00 AM EDT Social Work [facility] [address] [facility] [address] [place] [address] Cassia Verma [facility] [address] [place] [address] documented as of this encounter Visit Diagnoses Not on filedocumented in this encounter Care Teams Tuberculosis Specialist Relationship Specialty Start Date End Date Marcelo Reese MD [address] [place] [address] PCP - General 06/22/20 documented as of this encounter
--- OUTSIDE RECORDS SUMMARY | 2024-08-10 07:54 | XMS_ITS | Encounter Summary ---
Author Organization [facility] Address [address] [place] [address] Care Team Providers Care Inward Toll Operator Name Role Phone Marcelo Reese MD Primary Care Provider + [phone] Encounter Details Date Type Department Care Team (Late st Contact Info) Description 12/22/2017 [facility] OTTR Encounter Historical OTTR [address] [place] [address] Jumana Ku, RN CH-TRANSPLANT ADMINISTRATION Social History Tobacco Use Types Packs/Day Years Used Date Smoking Tobacco: Never Assessed Comments Unknown Sex and Gender Information Value Date Recorded Sex Assigned at Not on file Legal Sex Female 8:06 PM EDT Gender Identity Not on file Sexual Orientation Not on file documented as of this encounter Miscellaneous Notes * Progress Notes - Jumana Ku - 12/22/2017 9:03 AM EST Current selection criteria and SRTR data (August 2017 release) mailed to patient's home. * Progress Notes - Jumana Ku - 12/11/2017 4:30 PM EDT Attempted to return call to patient who is asking if it is ok if she receives a dental implant withpossible bone grafting and Valium for sedation. Left message that there is no transplant contraindication, however she should check with her ultimate hoops trainer on the medication and dosage. Request return call with any further questions. * Progress Notes - Jumana Ku - 11/16/2017 9:23 AM EDT Contacted patient for listing education. Reviewed when to contact the coordinator (medical changes,infections, colds, hospitalizations, social changes, travel, phone number, insurance, address, etc), answering all calls (even blocked numbers), monthly labs, living donation, potential for increased risk donor offers, and her PRA of 0%. Informed her of her hep B immunity status and highly suggested obtaining the hep B vaccine series. Instructed her to notify me if she decides to proceed with this vaccine series so that we can retest her immunity and hopefully open more donors. Also discussed [facility] Increased risk offers, to which she is amendable. She confirmed understanding of all. * Progress Notes - Paz Downey - 11/16/2017 8:20 AM EDT Mailed kidney txp listed letters with requisitions and February 2017 SRTR data letter to pt and idalia VILLALOBOS. Listed letters auto-saved in OTTR and copies placed in compliance. * Progress Notes - Jumana Ku - 11/13/2017 4:01 PM EDT Patient returned call. Informed her that committee approved her for inactive listing and she was placed on the list yesterday. Reivewed that she will remain inactive while she obtains dental and psych clearance and has remained purge free for 6 months. Explained that listing inactive does start herwaiting time, however she will not yet be eligible for organ offers. She confirmed understanding. She is not able to stay of the phone for full listing teaching at this time. [facility] for this teaching. * Progress Notes - Jumana Ku - 11/13/2017 2:04 PM EDT Updated OTTR listing, added SCM diagnosis for listing to the problem list and attempted to contact pt for listing education. Left message requesting return call. * Progress Notes - Jumana Ku - 11/12/2017 4:23 PM EDT IMP form faxed. Patient listed in UNOS and listing email sent. Please send listing documents. * Progress Notes - Tiffani Gambino - 11/12/2017 1:14 PM EDT Clear to list inactive. Will seek insurance approval if/when patient is to be activated. * Progress Notes - Jumana Ku - 11/11/2017 11:40 AM EDT Transplant evaluation records with LMN saved in OTTR all doc under insurance clearance. Myesha Aceves Notified. Request to know if ok to list inactive prior to insurance approval? * Progress Notes - ProviderDebbie MD - 10/26/2017 12:36 PM EDT DOS 11/05/2017 HRCT chest f/u 4 mm nod preop kidney txp ESRD [facility] SCM NPR updating IAuth and nurse * Progress Notes - Jumana Ku - 10/21/2017 7:49 AM EDT [employer] and dental clearance form secure emailed to patient per her request as she states she neverreceived the mailed copy. * Progress Notes - Tiffani Gambino - 10/19/2017 2:40 PM EDT manager proposal requested update on pt's eval status, fax sent stating what test where still needed. * Progress Notes - Alyson Holguin William - 09/14/2017 11:47 AM EDT Scheduled pt for CT and u/s on 11.05.2017. Called and confirmed date and time with pt. Mailed schedule and map to hospital. Explained to pt she needed to fast for 8 hours before u/s. Instructions are on the schedule. * Progress Notes - Jumana Ku - 09/09/2017 3:[address] Email to Dr. Michelle about phos of 1.7. * Progress Notes - Jumana Ku - 09/03/2017 11:55 AM EDT Reviewed evaluation testing with Dr. Garvin. He has ordered a CT high resolution non contrast of the chest to further investigate the 4mm nodule on the CT abd result, as well as, a bilateral renal US for the renal cysts. Patient will need dental clearance, however we can discuss for listing inactive while she completes this work and works with psych/therapist on her eating disorder. Ordered to notify pt and nephrology office of Phos 1.7 and no further orders for elevated alk phos, low albumin norplt 410. Contacted patient and reviewed the above with her. All questions asked were answered to stated satisfaction. She confirmed understanding. I asked how her therapy was going with her purging. She stated it is all going very well. The Psychiatrist placed her on Prozac and recently up the doseto 40mg. She states this has helped more than she ever thought it would. She reports that she has not purged in at least 3 weeks, however reports strong feelings to do so. She is working with her therapist on coping mechanisms and states that she has taken up crocheting, volunteering at the local Hospice center, letter writing to friends/family, and self talk. She sounds to be making great strides in her struggle with her eating disorder. Reminded patient that we still need her pap (says complete), pneumonia (says received the first one), and mammogram (says has dense tissue so she has to have a repeat mammogram and US). She will bring all records to clinic at the time of her radiology testing.RIA notified of above conversation. Alyson notified CT and US orders in [facility], please schedule for next available. * Progress Notes - ProviderDebbie MD - 08/31/2017 11:55 AM EDT DOS 08/31/2017 CT Abd pelvis wo oral/IV contrast preop kidney txp [facility] plan code NPR [phone] transplant specialist will update IAuth and nurse. * Progress Notes - Alyson Holguin - 08/04/2017 4:34 PM EDT scheduled pt for eval on 09.02.2017. Called and spoke with the pt who confirmed the date and time. Mailed schedule with local testing letter, stress instructions, map and schedules. Verified address. Pt requires one day stress with BMI of 19 * Progress Notes - Jumana Ku - 07/31/2017 10:31 AM EDT Patient called and stated that her BP is running from 140/80 to 160/high90's. She stated that she has been trying to get in touch with Dr. Michelle, however the number she normally calls says the person is on vacation. Other number she has called she has not gotten anyone. I sent an IM to Dr. Michelle and he stated he would give her a call. Patient was happy with this repsonse. * Progress Notes - Jumana Ku - 07/29/2017 4:35 PM EDT Contacted patient as I forgot to address medication and expected body habitus changes that might occur post transplant. As expected, she was anxious of these changes. She talked about that it is not only about the body image, but the loss of control. I listened to her concerns and explained some ways that she may feel loss of control post transplant (required to take medications, some medications may cause her to be more hungry or gain weight or change her body (barakat face), frequent clinic visits, talks about her diet/sexual activity/etc. Explained that our goal is to be upfront with her about these things so that she can start working with her therapist and psychiatrist to develop coping skills that will help her manage her condition after transplant. We discussed that stopping the predisone will likely not be an option, def. not without a doctors order, and that if she purges and looses her transplant medications, she could potentially go in to rejection. She confirmed understandingand thanks us for the information. She plans to discuss these things with her therapist. * Progress Notes - Jumana Ku - 07/29/2017 4:13 PM EDT Contacted patient to follow up from committee. Reviewed committee discussion. She confirms understanding of need to see both therapist and [facility]. Reminded her that we will be starting her eval with the hope to get her on the waiting list to start her waiting time, however we will not be able to place her on the active list until she has been able to stop purging for at least 6 months and has been cleared by [facility]. She confirmed understanding. Orders in [facility]. Please schedule. Local work up letter auto saved in OTTR. Please mail with evaluation information. * Progress Notes - Aylson Holguin - 07/16/2017 2:32 PM EDT Called and scheduled pt for surgeon f/u appt on 07.27.2017 @ 1pm. Appt was confirmed. Mailed appt reminder from AP. * Progress Notes - Tiffani Kennedy - 07/15/2017 12:38 PM EDT Order entered for surgeon f/u visit. Edited to add: patient will not be available for scheduling 08/03 - 08/07. * Progress Notes - Tiffani Kennedy - 07/15/2017 12:29 PM EDT Informed Ms. Hatch by phone of today's committee decision that she is not yet cleared by psychiatry, but that we would like to schedule a txp surgeon visit to discuss how we may proceed in her best interest. Stressed that she should continue to follow with [facility]. She verbalized understanding of all. * Progress Notes - Tiffani Kennedy - 07/10/2017 4:12 PM EDT Received a call from Ms. Hatch who would like an update. She states that [facility] been [facility] for transplant evaluation but has not heard anything from us. Explained that we will be discussing her psych and SW consults in our committee meeting next weekand that coord will update her by the end of next week. Advised that the mostly likely explainationfor pt receiving such a letter is that it was sent is response to our financial counselor requesting insurance authorization for consutls we have completed thus far. She verbalized understanding. * Progress Notes - Tiffani Kennedy - 07/10/2017 1:38 PM EDT Attempted to return a message from Ms. Hatch; left a message. * Progress Notes - Lavern Valdes - 07/03/2017 2:55 PM EDT SW met with pt for TXP SW eval. If patient is cleared by psych for transplant, SW is comfortable approving patient for transplant from a psychosocial perspective, provided that pt continues to engagein therapy to manage her eating disorder. Functional status: 90%. See SCM for full report. * Progress Notes - Paz Downey - 05/28/2017 10:34 AM EDT Received email from Lavern stating pt is now scheduled for 07/03/17 psych consult @ 1330. R/s'd pt's 06/26/17 SW consult to 07/03/17 @ 1100. Updated APM, SCM, OTTR, and [place]. Called and spoke w/ pt.Gave her 07/03/17 SW and psych appt details and she confirmed understanding. Mailed appt schedule w/maps to pt. * Progress Notes - Paz Downey - 05/26/2017 3:16 PM EDT Pt scheduled for 06/26/17 SW consult @ 1100. Updated APM and SCM. Called and spoke w/ pt. States sheis unavailable on 06/23/17-06/26/17, and also on 06/15/17 for another appt. Emailed FCE and AWM re: this. * Progress Notes - Lavern Valdes - 05/26/2017 12:39 PM EDT RIA received email from Dr. Pastor's print support specialist stating pt will be seen on 06/26 @ 1:30 PM for a psych eval. RIA forwarded email to schedulers requesting to see pt same day. * Progress Notes - Lavern Valdes - 05/21/2017 11:38 AM EDT SW received and reviewed pt's therapy notes. SW referred pt to Dr. Pastor and forwarded him pt's therapy notes. SW asked that his print support specialist notify SW of the appointment she plans to offer pt so that SW can confirm availability on the same day to see pt. * Progress Notes - Jumana Ku - 05/20/2017 12:52 PM EDT Therapist records received via mail today. Patient notified. They have been scaned to OTTR under all doc - outside records - Evaluation. FRED Puckett notified to please review. Orders in [facility]. Please schedule SW and Pscyhiatry apts for next available. * Progress Notes - Jumana Ku - 05/18/2017 10:55 AM EDT Received call from therapist who stated she will be mailing pts records as she is not allowed to fax them. Notified patient. * Progress Notes - Jumana Ku - 05/15/2017 4:02 PM EDT Recieved call from pt asking if we have recieived her medical records from her therapist office. Informed her that I spoke with the office earlier today and confirmed they received a signed release as I was faxing it, however have not yet received the records. Informed her I will call the office again. Pt stated she has an apt on thu and will mention it again while she is there if we do not have them by that time. * Progress Notes - Jumana Ku - 05/15/2017 10:42 AM EDT Spoke with Divya at [facility], OIL EXPELLER OPERATOR, MECHANICAL FITTER office and reqeust records. She stated she has not received our fax or phone call. Faxed request/consent while on the phone and she confirmed she received it. She will fax records now. * Progress Notes - Jumana Ku - 04/30/2017 10:41 AM EDT Returned call to patient. Informed her that we are waiting on her therapy notes before scheduling her SW and psychiatry apts, otherwise there was no new information from committee. She requested her lab results. Informed her that I could send them, however we only geovanni nicotine/drug screen, a1c andblood typing. Reviewed blood type O and matching with her. She stated she does not need these results sent to her. Pt stated she sees her therapist on Thursday and will request records to be sent if they have not yet. * Progress Notes - Jumana Ku - 04/29/2017 11:42 AM EDT Left message [facility] requesting update on records request. * Progress Notes - Jumana Ku - 04/23/2017 11:07 AM EDT Faxed signed medical records release to [facility]rap[facility] for most recent notes. * Progress Notes - Viki Gordon W - 03/24/2017 10:54 AM EST ICE packet mailed [facility] [id number]. ICE letter mailed to ref dr. * Progress Notes - Viki Gordon W - 03/19/2017 10:34 AM EST Spoke with patient and offered ICE apt. Patient is scheduled for 04/23/17 arriving at 7:30 for an 8:00 surg apt at the [facility]. * Progress Notes - EvanViki W - 03/19/2017 7:54 AM EST Received new referral from Dr. Michelle. documented in this encounter Plan of Treatment Upcoming Encounters Date Type Department Care Team (Late st Contact Info) Description 09/09/2024 11:00 AM EDT Social Work [facility] [address] [facility] [address] [place] [address] Cassia Verma [address] [address] documented as of this encounter Procedures Procedure Name Priority Date/Time Associated Diagnosis Comments OTTR LAB RESULTS (MANUAL) Routine 09/02/2017 12:13 PM EDT OTTR LAB RESULTS (MANUAL) Routine 04/23/2017 3:50 PM EDT documented in this encounter Results * OTTR LAB RESULTS (MANUAL) (09/02/2017 12:13 PM EDT) External Estimated GFR 21.74 EXTERNAL LAB 09/02/2017 12:1 3 PM EDT Narrative EXTERNAL LAB - 09/02/2017 2:47 PM EDT Automated LAB Interface us Historical Provider LAB BLOOD ORDERABLES Tiana l Result EXTERNAL LAB * OTTR LAB RESULTS (MANUAL) (04/23/2017 3:50 PM EDT) External Panel Reactive Antibody (PRA) 0% ng/mL/hour EXTERNAL LAB External HLA Locus A 11, 30 EXTERNAL LAB External HLA Locus B 8, 18 EXTERNAL LAB External HLA Locus Dr 17, 17 EXTERNAL LAB 04/23/2017 3:50 PM EDT Narrative EXTERNAL LAB - 11/09/2017 3:52 PM EDT [facility] us Historical Provider LAB BLOOD ORDERABLES Tiana l Result EXTERNAL LAB documented in this encounter Visit Diagnoses Not on filedocumented in this encounter Care Teams Inward Toll Operator Relationship Specialty Start Date End Date Marcelo Reese MD [facility] [place] [address] PCP - General 06/22/20 documented as of this encounter
--- OUTSIDE RECORDS SUMMARY | 2024-08-10 07:54 | XMS_ITS | Encounter Summary ---
Author Organization [facility] Address [address] [place] [address] Care Team Providers Care Supervisor [employer] V[employer] Name Role Phone Marcelo Reese MD Primary Care Provider + [phone] Encounter Details Date Type Department Care Team (Late st Contact Info) Description 10/21/2019 Legacy [facility] Encounter Historical OTTR [address] [place] [address] Cassia Verma [facility] [address] [phone] Social History Tobacco Use Types Packs/Day Years Used Date Smoking Tobacco: Never Assessed Comments Unknown Sex and Gender Information Value Date Recorded Sex Assigned at Not on file Legal Sex Female 8:06 PM EDT Gender Identity Not on file Sexual Orientation Not on file documented as of this encounter Miscellaneous Notes * Progress Notes - Cassia Verma - 10/21/2019 1:25 PM EDT SW completed annual evaluation on 10/20/19 with full documentation in [facility]. Pt remains socially cleared for listing. documented in this encounter Plan of Treatment Upcoming Encounters Date Type Department Care Team (Late st Contact Info) Description 09/09/2024 11:00 AM EDT Social Work [facility] [address] [place] [address] Cassia Verma [facility] [address] [phone] documented as of this encounter Visit Diagnoses Not on filedocumented in this encounter Care Teams Supervisor [employer] Relationship Specialty Start Date End Date Marcelo Reese MD [address] [place] [address] PCP - General 06/22/20 documented as of this encounter
--- OUTSIDE RECORDS SUMMARY | 2024-08-10 07:54 | XMS_ITS | Encounter Summary ---
Author Organization [facility] Address [address] [id number] Care Team Providers Care Chromosomal Disorders Counselor Name Role Phone Marcelo Reese MD Primary Care Provider [phone] Encounter Details Date Type Department Care Team (Late st Contact Info) Description 12/30/2021 Lab Requisition [facility] [address] [place] [address] Manuel Menon MD [address] [address] Awaiting organ transplant status; End stage renal disease (CMS/HCC) Social History [...] Description 09/09/2024 11:00 AM EDT Social Work [facility] [address] [address] Cassia Verma [facility] [address] [phone] documented as of this encounter Procedures Procedure Name Priority Date/Time Associated Diagnosis Comments HLA ANTIBODY TESTING (LSA) Routine 12/25/2021 2:10 PM EST Awaiting organ transplant status End stage renal disease (CMS/HCC) documented in this encounter Results * HLA Antibody Testing (LSA) (12/25/2021 2:10 PM EST) Blood Venous blood specimen / Unknown 12/25/2021 2:10 PM EST 12/30/2021 9:21 AM EST us Manuel Menon MD LAB BLOOD ORDERABLES Final Res ult [facility] [address] documented in this encounter Visit Diagnoses Diagnosis Awaiting organ transplant status End stage renal disease (CMS/HCC) End stage renal disease documented in this encounter Additional Health Concerns Assessment Noted Time A fall risk assessment has been complete d for the patient 12/17/2020 2:12 PM EST documented as of this encounter Care Teams Chromosomal Disorders Counselor Relationship Specialty Start Date End Date Marcelo Reese MD [facility] [place] [address] PCP - General 06/22/20 documented as of this encounter
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
--- OUTSIDE RECORDS SUMMARY | 2024-08-10 07:54 | XMS_ITS ---
Author Organization [facility] ([facility]) Address [address] [place] [id number] Care Team Providers Care Digital Media Sales Consultant Name Role Phone Unavailable Unavailable Unavailable Allergies, Adverse Reactions, Alerts Allergy Name Allergy Type Status Severity Reaction(s) Onset Date Inactive Date Treating Clinician Comments Penicillins Allergy Active Unknown 2021-06 14:21:1 6 Medications Ordered Medication Name Filled Medication Name Start Date Stop Date Current Medication? Ordering Clinician Indication Dosage Frequency Signature (SIG) Comments Components Normal Saline Solution 0.9% NaCl 07-09 12:11: 09 Yes [id number] Number of Repeats Allowed: Frequency: As needed heparin sodium, porcine 04-05 15:42: 12 Yes [id number] Number of Repeats Allowed: Frequency: Every Dialysis TreatmentD osesOrdere d: Hourly Dose 500 Units/Hr 1:1000 Units/mLRo beena: Intravenou s heparin sodium, porcine 04-05 15:42: 12 Yes [id number] Number of Repeats Allowed: Frequency: Every Dialysis TreatmentD osesOrdere d: Loading Dose 3000 Units 1:1000 Units/mLRo beena: Intravenou s ONS [facility] 09-02 18:31: 36 Yes [id number] Number of Repeats Allowed: Frequency: Every Dialysis Treatment ondansetron hydrochlori de 05-04 09:35: 29 Yes [id number] Number of Repeats Allowed: Frequency: Every 4 hours as needed Problems This patient has no known problems. Procedures Procedure Date / Time Performed Performing Clinician Marisela saavedra Details AV Fistula 2022-08-21 04:00:00 Access Surgeon ZULMA GROSS (D [id number]),[place], [place] Access Site Upper Arm (Left) Access Use Start Date 2022-10-01 04:00:0 0 Central Venous Catheter (CVC)2022-04-04 05:00:00 Access Site Chest (Right) Access Use Start Date 2022-04-07 05:00:0 0 Access Use End Date 2022-10-22 04:00:00 PD [id number] 04:00:00 Access Site Lower Quadrant (Left ) Access Use End Date 2022-04-09 05:00:00 DIALYSIS TREATMENT INFORMATION Conventional Hemodialysis Date Type Treatment Start Date Treatment End Date Pre-Treatment Vitals Post-Treatment Vitals Weight Gain BFR DFR Actual UF Dialysis Access August 09, 2024 In-Ce nter Hemod ialys is Treat ment 2024-08-09 T09:23:00. 000Z 2024-08-09 T12:29:31. 000Z BP Sitting (Pre-Dialysis) 148/78 mmHg BP Sitting (Post-D ialysis ) 116/ 67 mmHg BP Standing (Pre-Dialysis) 153/77 mmHg Sitti ng Heart Rate Post-Dialysis 55 BPM Sitting Heart Rate Pre-Dialysis 65 BPM Temperatu re Post-Dialysis 98.3 degF Standing Heart Rate Pre-Dialysis 66 BPM Temperature Pre-Dialysis 97.6 degF August 06, 2024 In-Center Hemodialysis Treatment [id number]:17:31.000Z 6233-50-45R23:19:12.000Z BP Sitting (Pre-Dialysis) 155/82 mmHg BP Sitting (Post-Dialysis) 98/79 mmHg Concurrent Access: falseAV Fistula Upper Arm (Left) Arterial Sitting Heart Rate Pre-Dialysis 89 BPM BP Standi ng (Post-Dialysis) 95/54 mmHg Temperature Pre-Dialysis 97.9 degF Sitting Heart Ra te Post-Dialysis 60 BPM Standing Heart Rate Post-Valentina lysis 68 BPM Temperature Post-Dialysis 97 .7 degF August 02, 2024 In-Center Hemodialysis Treatment 1171-15-69E72:25:00.000Z 0363-41-15D81:29:04.000Z BP Sitting (Pre-Dialysis) 139/76 mmHg BP Sitting (Post-Dialysis) 135/66 mmHg Concurrent Access: falseAV Fistula Upper Arm (Left) Arterial BP Standing (Pre-Dialysis) 111/98 mmHg BP Standing (P ost-Dialysis) 145/74 mmHg Sitting Heart Rate Pre-Dialysis 67 BPM Sitting Heart Rate Post-Dialysis 60 BPM Standing Heart Rate Pre-Dialysis 77 BPM Standing Heart Rate Post-Dialysis 80 BPM Temperature Pre-Dialysis 97.3 degF Temperature Post -Dialysis 97.4 degF July 30, 2024 In-Center Hemodialysis Treatment 1342-91-32Y29:26:00.000Z 4463-49-43M80:22:20.000Z BP Sitting (Pre-Dialysis) 135/64 mmHg BP Sitting (Post-Dialysis) 97/54 mmHg Concurrent Access: falseAV Fistula Upper Arm (Left) Arterial BP Standing (Pre-Dialysis) 124/87 mmHg BP Standing (P ost-Dialysis) 102/52 mmHg Sitting Heart Rate Pre-Dialysis 72 BPM Sitting Heart Rate Post-Dialysis 60 BPM Standing Heart Rate Pre-Dialysis 69 BPM Standing Heart Rate Post-Dialysis 68 BPM Temperature Pre-Dialysis 97.6 degF Temperature Post -Dialysis 97.9 degF July 26, 2024 In-Center Hemodialysis Treatment [id number]:41:00.000Z 9737-38-79N59:44:23.000Z BP Sitting (Pre-Dialysis) 135/75 mmHg BP Sitting (Post-Dialysis) 140/99 mmHg Concurrent Access: falseAV Fistula Upper Arm (Left) Arterial Sitting Heart Rate Pre-Dialysis 66 BPM Sitting H eart Rate Post-Dialysis 80 BPM Temperature Pre-Dialysis 98.1 degF Temperature Post -Dialysis 97.6 degF July 23, 2024 In-Center Hemodialysis Treatment 7494-28-44H49:25:00.000Z 6818-19-69O75:23:46.000Z BP Sitting (Pre-Dialysis) 126/65 mmHg BP Sitting (Post-Dialysis) 115/63 mmHg Concurrent Access: falseAV Fistula Upper Arm (Left) Arterial Sitting Heart Rate Pre-Dialysis 65 BPM BP Standing (Post-Dialysis) 132/82 mmHg Temperature Pre-Dialysis 97.6 degF Sitting Heart Ra te Post-Dialysis 62 BPM Standing Heart Rate Post-Valentina lysis 80 BPM Temperature Post-Dialysis 97 .9 degF July 19, 2024 In-Center Hemodialysis Treatment 0884-48-29I66:20:00.000Z 0807-41-14D12:15:00.000Z BP Sitting (Pre-Dialysis) 158/83 mmHg BP Sitting (Post-Dialysis) 113/58 mmHg Concurrent Access: falseAV Fistula Upper Arm (Left) Arterial Sitting Heart Rate Pre-Dialysis 93 BPM BP Standing (Post-Dialysis) 112/90 mmHg Temperature Pre-Dialysis 98.1 degF Sitting Heart Ra te Post-Dialysis 60 BPM Standing Heart Rate Post-Valentina lysis 80 BPM Temperature Post-Dialysis 98 .1 degF July 16, 2024 In-Center Hemodialysis Treatment 0308-10-05X68:25:20.000Z 6517-37-65N89:28:50.000Z BP Sitting (Pre-Dialysis) 133/80 mmHg BP Sitting (Post-Dialysis) 109/57 mmHg Concurrent Access: falseAV Fistula Upper Arm (Left) Arterial BP Standing (Pre-Dialysis) 125/84 mmHg BP Standing (P ost-Dialysis) 112/65 mmHg Sitting Heart Rate Pre-Dialysis 68 BPM Sitting Heart Rate Post-Dialysis 60 BPM Standing Heart Rate Pre-Dialysis 66 BPM Standing Heart Rate Post-Dialysis 70 BPM Temperature Pre-Dialysis 97.6 degF Temperature Post -Dialysis 97.8 degF July 12, 2024 In-Center Hemodialysis Treatment 1502-20-20U31:26:17.000Z 8617-04-93K75:25:57.000Z BP Sitting (Pre-Dialysis) 148/77 mmHg BP Sitting (Post-Dialysis) 106/61 mmHg Concurrent Access: falseAV Fistula Upper Arm (Left) Arterial Sitting Heart Rate Pre-Dialysis 66 BPM BP Standing (Post-Dialysis) 106/81 mmHg Temperature Pre-Dialysis 98.1 degF Sitting Heart Ra te Post-Dialysis 87 BPM Standing Heart Rate Post-Valentina lysis 69 BPM Temperature Post-Dialysis 97 .9 degF July 09, 2024 In-Center Hemodialysis Treatment 4147-10-87Q14:31:00.000Z 7425-60-16Q55:33:33.000Z BP Sitting (Pre-Dialysis) 133/73 mmHg BP Sitting (Post-Dialysis) 95/54 mmHg Concurrent Access: falseAV Fistula Upper Arm (Left) Arterial Sitting Heart Rate Pre-Dialysis 65 BPM BP Standi ng (Post-Dialysis) 99/60 mmHg Temperature Pre-Dialysis 98.1 degF Sitting Heart Ra te Post-Dialysis 74 BPM Standing Heart Rate Post-Valentina lysis 61 BPM Temperature Post-Dialysis 97 .8 degF July 05, 2024 In-Center Hemodialysis Treatment [id number]:21:00.000Z 9948-01-42B70:20:42.000Z BP Sitting (Pre-Dialysis) 128/69 mmHg BP Sitting (Post-Dialysis) 122/68 mmHg Concurrent Access: falseAV Fistula Upper Arm (Left) Arterial BP Standing (Pre-Dialysis) 132/84 mmHg BP Standing (P ost-Dialysis) 111/70 mmHg Sitting Heart Rate Pre-Dialysis 69 BPM Sitting Heart Rate Post-Dialysis 80 BPM Standing Heart Rate Pre-Dialysis 80 BPM Standing Heart Rate Post-Dialysis 60 BPM Temperature Pre-Dialysis 97.6 degF Temperature Post -Dialysis 97.3 degF July 02, 2024 In-Center Hemodialysis Treatment [id number]:17:00.000Z 9631-01-70U50:24:39.000Z BP Sitting (Pre-Dialysis) 137/77 mmHg BP Sitting (Post-Dialysis) 97/54 mmHg Concurrent Access: falseAV Fistula Upper Arm (Left) Arterial Sitting Heart Rate Pre-Dialysis 74 BPM BP Standing (Post-Dialysis) 106/64 mmHg Temperature Pre-Dialysis 98.1 degF Sitting Heart Ra te Post-Dialysis 60 BPM Standing Heart Rate Post-Valentina lysis 60 BPM Temperature Post-Dialysis 98 .1 degF June 28, 2024 In-Center Hemodialysis Treatment 3507-37-56L20:15:00.000Z [id number]:13:49.000Z BP Sitting (Pre-Dialysis) 117/80 mmHg BP Sitting (Post-Dialysis) 99/63 mmHg Concurrent Access: falseAV Fistula Upper Arm (Left) Arterial Sitting Heart Rate Pre-Dialysis 80 BPM BP Standing (Post-Dialysis) 117/98 mmHg Temperature Pre-Dialysis 98.1 degF Sitting Heart Ra te Post-Dialysis 82 BPM Standing Heart Rate Post-Valentina lysis 80 BPM Temperature Post-Dialysis 97 .3 degF June 25, 2024 In-Center Hemodialysis Treatment [id number]:45:00.000Z 7692-70-10U88:50:24.000Z BP Sitting (Pre-Dialysis) 142/81 mmHg BP Sitting (Post-Dialysis) 91/47 mmHg Concurrent Access: falseAV Fistula Upper Arm (Left) Arterial Sitting Heart Rate Pre-Dialysis 72 BPM Sitting H eart Rate Post-Dialysis 62 BPM Temperature Pre-Dialysis 97.7 degF Temperature Post -Dialysis 97.6 degF June 21, 2024 In-Center Hemodialysis Treatment 3596-45-14W65:22:00.000Z [id number]:23:43.000Z BP Sitting (Pre-Dialysis) 121/95 mmHg BP Sitting (Post-Dialysis) 127/77 mmHg Concurrent Access: falseAV Fistula Upper Arm (Left) Arterial BP Standing (Pre-Dialysis) 136/90 mmHg BP Standing (P ost-Dialysis) 135/77 mmHg Sitting Heart Rate Pre-Dialysis 90 BPM Sitting Heart Rate Post-Dialysis 80 BPM Standing Heart Rate Pre-Dialysis 90 BPM Standing Heart Rate Post-Dialysis 68 BPM Temperature Pre-Dialysis 97.6 degF Temperature Post -Dialysis 97.9 degF June 18, 2024 In-Center Hemodialysis Treatment [id number]:21:19.000Z 1066-96-00E63:25:04.000Z BP Sitting (Pre-Dialysis) 129/70 mmHg BP Sitting (Post-Dialysis) 99/63 mmHg Concurrent Access: falseAV Fistula Upper Arm (Left) Arterial BP Standing (Pre-Dialysis) 125/85 mmHg BP Standing (P ost-Dialysis) 141/88 mmHg Sitting Heart Rate Pre-Dialysis 67 BPM Sitting Heart Rate Post-Dialysis 70 BPM Standing Heart Rate Pre-Dialysis 77 BPM Standing Heart Rate Post-Dialysis 60 BPM Temperature Pre-Dialysis 97.9 degF Temperature Post -Dialysis 97.6 degF June 14, 2024 In-Center Hemodialysis Treatment 6900-76-30R01:19:58.000Z 0192-04-68D91:23:33.000Z BP Sitting (Pre-Dialysis) 130/67 mmHg BP Sitting (Post-Dialysis) 104/52 mmHg Concurrent Access: falseAV Fistula Upper Arm (Left) Arterial BP Standing (Pre-Dialysis) 142/76 mmHg BP Standing (P ost-Dialysis) 100/47 mmHg Sitting Heart Rate Pre-Dialysis 66 BPM Sitting Heart Rate Post-Dialysis 60 BPM Standing Heart Rate Pre-Dialysis 74 BPM Standing Heart Rate Post-Dialysis 62 BPM Temperature Pre-Dialysis 97.5 degF Temperature Post -Dialysis 98 degF June 11, 2024 In-Center Hemodialysis Treatment 4800-89-42B14:19:47.000Z 7894-54-84X96:29:22.000Z BP Sitting (Pre-Dialysis) 130/78 mmHg BP Sitting (Post-Dialysis) 92/51 mmHg Concurrent Access: falseAV Fistula Upper Arm (Left) Arterial Sitting Heart Rate Pre-Dialysis 69 BPM BP Standing (Post-Dialysis) 115/97 mmHg Temperature Pre-Dialysis 97.3 degF Sitting Heart Ra te Post-Dialysis 60 BPM Standing Heart Rate Post-Valentina lysis 74 BPM Temperature Post-Dialysis 97 .8 degF June 07, 2024 In-Center Hemodialysis Treatment [id number]:21:15.000Z 8528-64-77U63:25:00.000Z BP Sitting (Pre-Dialysis) 122/70 mmHg BP Sitting (Post-Dialysis) 105/62 mmHg Concurrent Access: falseAV Fistula Upper Arm (Left) Arterial BP Standing (Pre-Dialysis) 122/77 mmHg BP Standing (P ost-Dialysis) 100/65 mmHg Sitting Heart Rate Pre-Dialysis 72 BPM Sitting Heart Rate Post-Dialysis 60 BPM Standing Heart Rate Pre-Dialysis 72 BPM Standing Heart Rate Post-Dialysis 80 BPM Temperature Pre-Dialysis 97.6 degF Temperature Post -Dialysis 97.6 degF June 04, 2024 In-Center Hemodialysis Treatment 1524-23-90F55:26:35.000Z 1381-55-03W41:20:00.000Z BP Sitting (Pre-Dialysis) 139/76 mmHg BP Sitting (Post-Dialysis) 96/70 mmHg Concurrent Access: falseAV Fistula Upper Arm (Left) Arterial BP Standing (Pre-Dialysis) 102/66 mmHg Sitti ng Heart Rate Post-Dialysis 54 BPM Sitting Heart Rate Pre-Dialysis 66 BPM Temperatu re Post-Dialysis 97.3 degF Standing Heart Rate Pre-Dialysis 68 BPM Temperature Pre-Dialysis 97.9 degF May 31, 2024 In-Center Hemodialysis Treatment [id number]:17:19.000Z 3435-96-22N76:22:04.000Z BP Sitting (Pre-Dialysis) 145/79 mmHg BP Sitting (Post-Dialysis) 104/70 mmHg Concurrent Access: falseAV Fistula Upper Arm (Left) Arterial Sitting Heart Rate Pre-Dialysis 81 BPM BP Standing (Post-Dialysis) 111/69 mmHg Temperature Pre-Dialysis 98.1 degF Sitting Heart Ra te Post-Dialysis 98 BPM Standing Heart Rate Post-Valentina lysis 89 BPM Temperature Post-Dialysis 98 .1 degF May 28, 2024 In-Center Hemodialysis Treatment [id number]:30:00.000Z 9931-17-12B75:38:36.000Z BP Sitting (Pre-Dialysis) 128/79 mmHg BP Sitting (Post-Dialysis) 107/66 mmHg Concurrent Access: falseAV Fistula Upper Arm (Left) Arterial Sitting Heart Rate Pre-Dialysis 77 BPM BP Standing (Post-Dialysis) 103/89 mmHg Temperature Pre-Dialysis 97.6 degF Sitting Heart Ra te Post-Dialysis 71 BPM Standing Heart Rate Post-Valentina lysis 80 BPM Temperature Post-Dialysis 97 .7 degF May 24, 2024 In-Center Hemodialysis Treatment 2085-55-52Z36:21:43.000Z 9023-35-64Z82:26:04.000Z BP Sitting (Pre-Dialysis) 144/97 mmHg BP Sitting (Post-Dialysis) 133/54 mmHg Concurrent Access: falseAV Fistula Upper Arm (Left) Arterial BP Standing (Pre-Dialysis) 154/94 mmHg Sitti ng Heart Rate Post-Dialysis 60 BPM Sitting Heart Rate Pre-Dialysis 80 BPM Temperatu re Post-Dialysis 97.9 degF Standing Heart Rate Pre-Dialysis 80 BPM Temperature Pre-Dialysis 97.6 degF May 21, 2024 In-Center Hemodialysis Treatment [id number]:21:50.000Z 3232-83-80O64:43:46.000Z BP Sitting (Pre-Dialysis) 146/80 mmHg Concurrent Access: falseAV Fistula Upper Arm (Left) Arterial BP Standing (Pre-Dialysis) 160/91 mmHg Sitting Heart Rate Pre-Dialysis 72 BPM Standing Heart Rate Pre-Dialysis 80 BPM Temperature Pre-Dialysis 97.5 degF May 17, 2024 In-Center Hemodialysis Treatment [id number]:37:26.000Z 3881-79-71A89:38:26.000Z BP Sitting (Pre-Dialysis) 127/72 mmHg BP Sitting (Post-Dialysis) 90/49 mmHg Concurrent Access: falseAV Fistula Upper Arm (Left) Arterial Sitting Heart Rate Pre-Dialysis 72 BPM BP Standing (Post-Dialysis) 105/53 mmHg Temperature Pre-Dialysis 97.6 degF Sitting Heart Ra te Post-Dialysis 65 BPM Standing Heart Rate Post-Valentina lysis 65 BPM Temperature Post-Dialysis 98 .1 degF May 14, 2024 In-Center Hemodialysis Treatment [id number]:27:00.000Z 6038-80-36I88:22:46.000Z BP Sitting (Pre-Dialysis) 134/80 mmHg BP Sitting (Post-Dialysis) 98/42 mmHg Concurrent Access: falseAV Fistula Upper Arm (Left) Arterial Sitting Heart Rate Pre-Dialysis 74 BPM Sitting H eart Rate Post-Dialysis 52 BPM Temperature Pre-Dialysis 98.1 degF Temperature Post -Dialysis 97.8 degF May 10, 2024 In-Center Hemodialysis Treatment 5450-10-71V64:34:00.000Z 4950-74-18V01:37:03.000Z BP Sitting (Pre-Dialysis) 148/77 mmHg BP Sitting (Post-Dialysis) 117/68 mmHg Concurrent Access: falseAV Fistula Upper Arm (Left) Arterial Sitting Heart Rate Pre-Dialysis 72 BPM Sitting H eart Rate Post-Dialysis 80 BPM Temperature Pre-Dialysis 97.6 degF Temperature Post -Dialysis 97.9 degF May 07, 2024 In-Center Hemodialysis Treatment 4343-46-97T46:34:07.000Z 5389-58-26H39:29:08.000Z BP Sitting (Pre-Dialysis) 125/65 mmHg BP Sitting (Post-Dialysis) 134/92 mmHg Concurrent Access: falseAV Fistula Upper Arm (Left) Arterial Sitting Heart Rate Pre-Dialysis 74 BPM Sitting H eart Rate Post-Dialysis 80 BPM Temperature Pre-Dialysis 98.1 degF Temperature Post -Dialysis 97.9 degF May 03, 2024 In-Center Hemodialysis Treatment 2195-89-90M09:31:00.000Z 2774-34-67W28:29:19.000Z BP Sitting (Pre-Dialysis) 122/70 mmHg BP Sitting (Post-Dialysis) 130/75 mmHg Concurrent Access: falseAV Fistula Upper Arm (Left) Arterial Sitting Heart Rate Pre-Dialysis 74 BPM BP Standing (Post-Dialysis) 113/67 mmHg Temperature Pre-Dialysis 98.1 degF Sitting Heart Ra te Post-Dialysis 80 BPM Standing Heart Rate Post-Valentina lysis 80 BPM Temperature Post-Dialysis 98 .1 degF April 30, 2024 In-Center Hemodialysis Treatment 4987-84-88W84:36:47.000Z 3966-63-84C53:40:12.000Z BP Sitting (Pre-Dialysis) 132/84 mmHg BP Sitting (Post-Dialysis) 109/52 mmHg Concurrent Access: falseAV Fistula Upper Arm (Left) Arterial Sitting Heart Rate Pre-Dialysis 77 BPM Sitting H eart Rate Post-Dialysis 74 BPM Temperature Pre-Dialysis 97.2 degF April 26, 2024 In-Center Hemodialysis Treatment 0244-10-15Y69:50:00.000Z 3118-26-25N07:47:03.000Z BP Sitting (Pre-Dialysis) 131/73 mmHg BP Sitting (Post-Dialysis) 101/52 mmHg Concurrent Access: falseAV Fistula Upper Arm (Left) Arterial Sitting Heart Rate Pre-Dialysis 80 BPM Sitting H eart Rate Post-Dialysis 69 BPM Temperature Pre-Dialysis 98.1 degF Temperature Post -Dialysis 97.6 degF April 23, 2024 In-Center Hemodialysis Treatment 1263-66-08Y16:34:58.000Z 6218-40-33Y89:43:46.000Z BP Sitting (Pre-Dialysis) 130/75 mmHg BP Sitting (Post-Dialysis) 100/62 mmHg Concurrent Access: falseAV Fistula Upper Arm (Left) Arterial Sitting Heart Rate Pre-Dialysis 80 BPM BP Standing (Post-Dialysis) 105/69 mmHg Temperature Pre-Dialysis 97.8 degF Sitting Heart Ra te Post-Dialysis 74 BPM Standing Heart Rate Post-Valentina lysis 70 BPM Temperature Post-Dialysis 97 .8 degF April 19, 2024 In-Center Hemodialysis Treatment 8188-39-60J20:31:25.000Z 6874-18-39C57:27:30.000Z BP Sitting (Pre-Dialysis) 153/98 mmHg BP Sitting (Post-Dialysis) 153/98 mmHg Concurrent Access: falseAV Fistula Upper Arm (Left) Arterial BP Standing (Pre-Dialysis) 155/80 mmHg Sitti ng Heart Rate Post-Dialysis 69 BPM Sitting Heart Rate Pre-Dialysis 80 BPM Temperatu re Post-Dialysis 97.9 degF Standing Heart Rate Pre-Dialysis 60 BPM Temperature Pre-Dialysis 98 degF April 16, 2024 In-Center Hemodialysis Treatment 4760-75-15J57:26:57.000Z 3633-35-51J30:31:28.000Z BP Sitting (Pre-Dialysis) 135/89 mmHg BP Sitting (Post-Dialysis) 101/59 mmHg Concurrent Access: falseAV Fistula Upper Arm (Left) Arterial Sitting Heart Rate Pre-Dialysis 80 BPM Sitting H eart Rate Post-Dialysis 65 BPM Temperature Pre-Dialysis 97.4 degF Temperature Post -Dialysis 97.3 degF April 12, 2024 In-Center Hemodialysis Treatment 7218-88-77P15:26:12.000Z 6322-16-42N23:28:57.000Z BP Sitting (Pre-Dialysis) 144/72 mmHg BP Sitting (Post-Dialysis) 126/79 mmHg Concurrent Access: falseAV Fistula Upper Arm (Left) Arterial BP Standing (Pre-Dialysis) 143/93 mmHg BP Standing (P ost-Dialysis) 112/75 mmHg Sitting Heart Rate Pre-Dialysis 80 BPM Sitting Heart Rate Post-Dialysis 80 BPM Standing Heart Rate Pre-Dialysis 80 BPM Standing Heart Rate Post-Dialysis 60 BPM Temperature Pre-Dialysis 97.8 degF Temperature Post -Dialysis 97.3 degF April 09, 2024 In-Center Hemodialysis Treatment 0903-11-44M87:22:56.000Z 8362-22-90Z01:24:26.000Z BP Sitting (Pre-Dialysis) 111/81 mmHg BP Sitting (Post-Dialysis) 111/72 mmHg Concurrent Access: falseAV Fistula Upper Arm (Left) Arterial Sitting Heart Rate Pre-Dialysis 80 BPM BP Standi ng (Post-Dialysis) 101/59 mmHg Temperature Pre-Dialysis 98 degF Sitting Heart Ra te Post-Dialysis 66 BPM Standing Heart Rate Post-Valentina lysis 60 BPM Temperature Post-Dialysis 97 .5 degF April 05, 2024 In-Center Hemodialysis Treatment 1486-31-27I45:27:51.000Z 5044-64-56Q82:33:36.000Z BP Sitting (Pre-Dialysis) 128/95 mmHg BP Sitting (Post-Dialysis) 150/83 mmHg Concurrent Access: falseAV Fistula Upper Arm (Left) Arterial BP Standing (Pre-Dialysis) 150/98 mmHg BP Standing (P ost-Dialysis) 135/80 mmHg Sitting Heart Rate Pre-Dialysis 80 BPM Sitting Heart Rate Post-Dialysis 60 BPM Standing Heart Rate Pre-Dialysis 69 BPM Standing Heart Rate Post-Dialysis 60 BPM Temperature Pre-Dialysis 97.3 degF Temperature Post -Dialysis 98 degF April 02, 2024 In-Center Hemodialysis Treatment 0622-37-29M70:43:14.000Z 7034-29-74B07:44:09.000Z BP Sitting (Pre-Dialysis) 125/89 mmHg BP Sitting (Post-Dialysis) 118/71 mmHg Concurrent Access: falseAV Fistula Upper Arm (Left) Arterial BP Standing (Pre-Dialysis) 122/69 mmHg BP Standing (P ost-Dialysis) 132/81 mmHg Sitting Heart Rate Pre-Dialysis 80 BPM Sitting Heart Rate Post-Dialysis 74 BPM Standing Heart Rate Pre-Dialysis 71 BPM Standing Heart Rate Post-Dialysis 60 BPM Temperature Pre-Dialysis 97.6 degF Temperature Post -Dialysis 98.6 degF March 29, 2024 In-Center Hemodialysis Treatment 7894-33-09G67:28:00.000Z 3044-29-29W76:33:06.000Z BP Sitting (Pre-Dialysis) 125/69 mmHg BP Sitting (Post-Dialysis) 116/88 mmHg Concurrent Access: falseAV Fistula Upper Arm (Left) Arterial BP Standing (Pre-Dialysis) 134/70 mmHg BP Standing (P ost-Dialysis) 124/87 mmHg Sitting Heart Rate Pre-Dialysis 60 BPM Sitting Heart Rate Post-Dialysis 120 BPM Standing Heart Rate Pre-Dialysis 65 BPM Standing Heart Rate Post-Dialysis 90 BPM Temperature Pre-Dialysis 97.6 degF Temperature Post -Dialysis 98 degF March 26, 2024 In-Center Hemodialysis Treatment [id number]:24:00.000Z 6979-06-82G00:24:52.000Z BP Sitting (Pre-Dialysis) 130/89 mmHg BP Sitting (Post-Dialysis) 123/67 mmHg Concurrent Access: falseAV Fistula Upper Arm (Left) Arterial Sitting Heart Rate Pre-Dialysis 88 BPM BP Standi ng (Post-Dialysis) 139/76 mmHg Temperature Pre-Dialysis 98 degF Sitting Heart Ra te Post-Dialysis 60 BPM Standing Heart Rate Post-Valentina lysis 69 BPM Temperature Post-Dialysis 97 .9 degF March 22, 2024 In-Center Hemodialysis Treatment 6434-19-66M05:23:27.000Z 6838-30-38V34:29:07.000Z BP Sitting (Pre-Dialysis) 92/56 mmHg BP Sitting (Post-Dialysis) 136/84 mmHg Concurrent Access: falseAV Fistula Upper Arm (Left) Arterial Sitting Heart Rate Pre-Dialysis 85 BPM BP Standi ng (Post-Dialysis) 117/81 mmHg Temperature Pre-Dialysis 98 degF Sitting Heart Ra te Post-Dialysis 80 BPM Standing Heart Rate Post-Valentina lysis 60 BPM Temperature Post-Dialysis 98 degF March 19, 2024 In-Center Hemodialysis Treatment 8426-40-78Q93:26:10.000Z 0042-42-40O91:28:40.000Z BP Sitting (Pre-Dialysis) 95/69 mmHg BP Sitting (Post-Dialysis) 102/53 mmHg Concurrent Access: falseAV Fistula Upper Arm (Left) Arterial Sitting Heart Rate Pre-Dialysis 52 BPM BP Standing (Post-Dialysis) 101/79 mmHg Temperature Pre-Dialysis 97.8 degF Sitting Heart Ra te Post-Dialysis 65 BPM Standing Heart Rate Post-Valentina lysis 74 BPM Temperature Post-Dialysis 98 .2 degF March 15, 2024 In-Center Hemodialysis Treatment [id number]:17:00.000Z 2509-56-28A76:23:43.000Z BP Sitting (Pre-Dialysis) 121/62 mmHg BP Sitting (Post-Dialysis) 142/70 mmHg Concurrent Access: falseAV Fistula Upper Arm (Left) Arterial BP Standing (Pre-Dialysis) 138/73 mmHg Sitti ng Heart Rate Post-Dialysis 68 BPM Sitting Heart Rate Pre-Dialysis 60 BPM Temperatu re Post-Dialysis 98.1 degF Standing Heart Rate Pre-Dialysis 67 BPM Temperature Pre-Dialysis 98 degF March 12, 2024 In-Center Hemodialysis Treatment 0091-66-24O10:37:00.000Z 1714-44-00M14:38:18.000Z BP Sitting (Pre-Dialysis) 116/69 mmHg BP Sitting (Post-Dialysis) 105/54 mmHg Concurrent Access: falseAV Fistula Upper Arm (Left) Arterial BP Standing (Pre-Dialysis) 132/66 mmHg Sitti ng Heart Rate Post-Dialysis 60 BPM Sitting Heart Rate Pre-Dialysis 74 BPM Temperatu re Post-Dialysis 97.5 degF Standing Heart Rate Pre-Dialysis 80 BPM Temperature Pre-Dialysis 97.5 degF March 08, 2024 In-Center Hemodialysis Treatment 5958-50-06X85:29:05.000Z 4383-41-71F65:33:01.000Z BP Sitting (Pre-Dialysis) 138/87 mmHg BP Sitting (Post-Dialysis) 113/88 mmHg Concurrent Access: falseAV Fistula Upper Arm (Left) Arterial BP Standing (Pre-Dialysis) 136/81 mmHg BP Standing (P ost-Dialysis) 119/85 mmHg Sitting Heart Rate Pre-Dialysis 80 BPM Sitting Heart Rate Post-Dialysis 80 BPM Standing Heart Rate Pre-Dialysis 80 BPM Standing Heart Rate Post-Dialysis 60 BPM Temperature Pre-Dialysis 98 degF Temperature Post -Dialysis 98 degF March 05, 2024 In-Center Hemodialysis Treatment 9165-77-61V33:20:00.000Z 4920-26-94R55:18:54.000Z BP Sitting (Pre-Dialysis) 134/106 mmHg BP Sitting (Post-Dialysis) 100/83 mmHg Concurrent Access: falseAV Fistula Upper Arm (Left) Arterial BP Standing (Pre-Dialysis) 109/67 mmHg BP Standing (P ost-Dialysis) 144/78 mmHg Sitting Heart Rate Pre-Dialysis 67 BPM Sitting Heart Rate Post-Dialysis 86 BPM Standing Heart Rate Pre-Dialysis 80 BPM Standing Heart Rate Post-Dialysis 94 BPM Temperature Pre-Dialysis 98 degF Temperature Post -Dialysis 98.6 degF March 01, 2024 In-Center Hemodialysis Treatment [id number]:24:00.000Z [id number]:30:02.000Z BP Sitting (Pre-Dialysis) 132/99 mmHg BP Sitting (Post-Dialysis) 136/73 mmHg Concurrent Access: falseAV Fistula Upper Arm (Left) Arterial BP Standing (Pre-Dialysis) 125/90 mmHg BP Standing (P ost-Dialysis) 124/65 mmHg Sitting Heart Rate Pre-Dialysis 73 BPM Sitting Heart Rate Post-Dialysis 60 BPM Standing Heart Rate Pre-Dialysis 80 BPM Standing Heart Rate Post-Dialysis 60 BPM Temperature Pre-Dialysis 97.6 degF Temperature Post -Dialysis 98 degF February 27, 2024 In-Center Hemodialysis Treatment [id number]:41:45.000Z [id number]:49:39.000Z BP Sitting (Pre-Dialysis) 132/70 mmHg BP Sitting (Post-Dialysis) 105/66 mmHg Concurrent Access: falseAV Fistula Upper Arm (Left) Arterial Sitting Heart Rate Pre-Dialysis 71 BPM BP Standi ng (Post-Dialysis) 103/79 mmHg Temperature Pre-Dialysis 98 degF Sitting Heart Ra te Post-Dialysis 80 BPM Standing Heart Rate Post-Valentina lysis 80 BPM Temperature Post-Dialysis 98 .7 degF February 23, 2024 In-Center Hemodialysis Treatment [id number]:27:54.000Z [id number]:32:49.000Z BP Sitting (Pre-Dialysis) 133/67 mmHg BP Sitting (Post-Dialysis) 129/65 mmHg Concurrent Access: falseAV Fistula Upper Arm (Left) Arterial BP Standing (Pre-Dialysis) 124/71 mmHg BP Standing (P ost-Dialysis) 108/66 mmHg Sitting Heart Rate Pre-Dialysis 67 BPM Sitting Heart Rate Post-Dialysis 67 BPM Standing Heart Rate Pre-Dialysis 67 BPM Standing Heart Rate Post-Dialysis 80 BPM Temperature Pre-Dialysis 98 degF Temperature Post -Dialysis 98.8 degF February 20, 2024 In-Center Hemodialysis Treatment [id number]:31:10.000Z 3070-46-52H87:17:40.000Z BP Sitting (Pre-Dialysis) 99/84 mmHg BP Sitting (Post-Dialysis) 105/91 mmHg Concurrent Access: falseAV Fistula Upper Arm (Left) Arterial Sitting Heart Rate Pre-Dialysis 73 BPM BP Standi ng (Post-Dialysis) 104/74 mmHg Temperature Pre-Dialysis 98 degF Sitting Heart Ra te Post-Dialysis 67 BPM Standing Heart Rate Post-Valentina lysis 80 BPM Temperature Post-Dialysis 98 degF February 16, 2024 In-Center Hemodialysis Treatment [id number]:22:40.000Z 7599-85-93T97:27:55.000Z BP Sitting (Pre-Dialysis) 114/68 mmHg BP Sitting (Post-Dialysis) 118/78 mmHg Concurrent Access: falseAV Fistula Upper Arm (Left) Arterial Sitting Heart Rate Pre-Dialysis 73 BPM BP Standi ng (Post-Dialysis) 133/75 mmHg Temperature Pre-Dialysis 98 degF Sitting Heart Ra te Post-Dialysis 80 BPM Standing Heart Rate Post-Valentina lysis 80 BPM Temperature Post-Dialysis 98 degF February 13, 2024 In-Center Hemodialysis Treatment [id number]:37:00.000Z [id number]:42:29.000Z BP Sitting (Pre-Dialysis) 121/74 mmHg BP Sitting (Post-Dialysis) 119/63 mmHg Concurrent Access: falseAV Fistula Upper Arm (Left) Arterial BP Standing (Pre-Dialysis) 107/70 mmHg Sitting Heart Rate Post-Dialysis 60 BPM Sitting Heart Rate Pre-Dialysis 78 BPM Temperatu re Post-Dialysis 98 degF Standing Heart Rate Pre-Dialysis 85 BPM Temperature Pre-Dialysis 97.9 degF February 09, 2024 In-Center Hemodialysis Treatment [id number]:31:00.000Z 1660-53-31P68:39:03.000Z BP Sitting (Pre-Dialysis) 146/84 mmHg BP Sitting (Post-Dialysis) 111/68 mmHg Concurrent Access: falseAV Fistula Upper Arm (Left) Arterial BP Standing (Pre-Dialysis) 119/79 mmHg Sitti ng Heart Rate Post-Dialysis 60 BPM Sitting Heart Rate Pre-Dialysis 80 BPM Temperatu re Post-Dialysis 98.4 degF Standing Heart Rate Pre-Dialysis 80 BPM Temperature Pre-Dialysis 97.9 degF February 06, 2024 In-Center Hemodialysis Treatment [id number]:31:00.000Z [id number]:34:31.000Z BP Sitting (Pre-Dialysis) 132/75 mmHg BP Sitting (Post-Dialysis) 109/78 mmHg Concurrent Access: falseAV Fistula Upper Arm (Left) Arterial BP Standing (Pre-Dialysis) 125/70 mmHg BP Standing (P ost-Dialysis) 123/56 mmHg Sitting Heart Rate Pre-Dialysis 67 BPM Sitting Heart Rate Post-Dialysis 79 BPM Standing Heart Rate Pre-Dialysis 65 BPM Standing Heart Rate Post-Dialysis 73 BPM Temperature Pre-Dialysis 98.1 degF Temperature Post -Dialysis 98.4 degF February 02, 2024 In-Center Hemodialysis Treatment [id number]:40:05.000Z 1016-75-64F46:41:58.000Z BP Sitting (Pre-Dialysis) 133/77 mmHg BP Sitting (Post-Dialysis) 137/80 mmHg Concurrent Access: falseAV Fistula Upper Arm (Left) Arterial BP Standing (Pre-Dialysis) 130/73 mmHg BP Standing (P ost-Dialysis) 132/103 mmHg Sitting Heart Rate Pre-Dialysis 68 BPM Sitting Heart Rate Post-Dialysis 80 BPM Standing Heart Rate Pre-Dialysis 62 BPM Standing Heart Rate Post-Dialysis 87 BPM Temperature Pre-Dialysis 98.1 degF Temperature Post -Dialysis 98.5 degF January 30, 2024 In-Center Hemodialysis Treatment 1511-20-06M01:39:53.000Z 2712-35-57G20:43:13.000Z BP Sitting (Pre-Dialysis) 163/85 mmHg BP Sitting (Post-Dialysis) 135/79 mmHg Concurrent Access: falseAV Fistula Upper Arm (Left) Arterial Sitting Heart Rate Pre-Dialysis 80 BPM BP Standing (Post-Dialysis) 118/75 mmHg Temperature Pre-Dialysis 98.5 degF Sitting Heart Ra te Post-Dialysis 70 BPM Standing Heart Rate Post-Valentina lysis 85 BPM Temperature Post-Dialysis 97 .3 degF January 26, 2024 In-Center Hemodialysis Treatment [id number]:53:57.000Z [id number]:46:28.000Z BP Sitting (Pre-Dialysis) 106/65 mmHg BP Sitting (Post-Dialysis) 104/57 mmHg Concurrent Access: falseAV Fistula Upper Arm (Left) Arterial BP Standing (Pre-Dialysis) 143/94 mmHg Sitti ng Heart Rate Post-Dialysis 60 BPM Sitting Heart Rate Pre-Dialysis 71 BPM Temperatu re Post-Dialysis 98.1 degF Standing Heart Rate Pre-Dialysis 70 BPM Temperature Pre-Dialysis 97.8 degF January 23, 2024 In-Center Hemodialysis Treatment [id number]:26:00.000Z [id number]:33:01.000Z BP Sitting (Pre-Dialysis) 121/69 mmHg BP Sitting (Post-Dialysis) 128/79 mmHg Concurrent Access: falseAV Fistula Upper Arm (Left) Arterial BP Standing (Pre-Dialysis) 136/87 mmHg Sitti ng Heart Rate Post-Dialysis 78 BPM Sitting Heart Rate Pre-Dialysis 70 BPM Temperatu re Post-Dialysis 98.1 degF Standing Heart Rate Pre-Dialysis 79 BPM Temperature Pre-Dialysis 97.6 degF January 19, 2024 In-Center Hemodialysis Treatment [id number]:36:33.000Z 0252-77-24S23:40:27.000Z BP Sitting (Pre-Dialysis) 122/79 mmHg BP Sitting (Post-Dialysis) 128/75 mmHg Concurrent Access: falseAV Fistula Upper Arm (Left) Arterial BP Standing (Pre-Dialysis) 138/73 mmHg Sitti ng Heart Rate Post-Dialysis 80 BPM Sitting Heart Rate Pre-Dialysis 62 BPM Temperatu re Post-Dialysis 98.1 degF Standing Heart Rate Pre-Dialysis 66 BPM Temperature Pre-Dialysis 98.1 degF January 16, 2024 In-Center Hemodialysis Treatment [id number]:39:15.000Z 3044-81-02P43:44:11.000Z BP Sitting (Pre-Dialysis) 144/80 mmHg BP Sitting (Post-Dialysis) 162/81 mmHg Concurrent Access: falseAV Fistula Upper Arm (Left) Arterial BP Standing (Pre-Dialysis) 142/97 mmHg BP Standing (P ost-Dialysis) 106/75 mmHg Sitting Heart Rate Pre-Dialysis 67 BPM Sitting Heart Rate Post-Dialysis 71 BPM Standing Heart Rate Pre-Dialysis 74 BPM Standing Heart Rate Post-Dialysis 60 BPM Temperature Pre-Dialysis 97.5 degF Temperature Post -Dialysis 97.3 degF January 12, 2024 In-Center Hemodialysis Treatment 6401-12-30I62:38:00.000Z 7020-58-16O67:47:44.000Z BP Sitting (Pre-Dialysis) 102/64 mmHg BP Sitting (Post-Dialysis) 111/60 mmHg Concurrent Access: falseAV Fistula Upper Arm (Left) Arterial BP Standing (Pre-Dialysis) 135/73 mmHg BP Standing (P ost-Dialysis) 151/73 mmHg Sitting Heart Rate Pre-Dialysis 60 BPM Sitting Heart Rate Post-Dialysis 60 BPM Standing Heart Rate Pre-Dialysis 74 BPM Standing Heart Rate Post-Dialysis 91 BPM Temperature Pre-Dialysis 97.3 degF Temperature Post -Dialysis 97.6 degF January 09, 2024 In-Center Hemodialysis Treatment [id number]:50:15.000Z [id number]:21:36.000Z BP Sitting (Pre-Dialysis) 121/66 mmHg BP Sitting (Post-Dialysis) 128/66 mmHg Concurrent Access: falseAV Fistula Upper Arm (Left) Arterial Sitting Heart Rate Pre-Dialysis 80 BPM BP Standing (Post-Dialysis) 127/96 mmHg Temperature Pre-Dialysis 97.7 degF Sitting Heart Ra te Post-Dialysis 68 BPM Standing Heart Rate Post-Valentina lysis 85 BPM Temperature Post-Dialysis 97 .2 degF January 06, 2024 In-Center Hemodialysis Treatment [id number]:36:45.000Z 4056-70-27L38:40:11.000Z BP Sitting (Pre-Dialysis) 138/76 mmHg BP Sitting (Post-Dialysis) 156/79 mmHg Concurrent Access: falseAV Fistula Upper Arm (Left) Arterial BP Standing (Pre-Dialysis) 137/70 mmHg BP Standing (P ost-Dialysis) 113/77 mmHg Sitting Heart Rate Pre-Dialysis 62 BPM Sitting Heart Rate Post-Dialysis 62 BPM Standing Heart Rate Pre-Dialysis 68 BPM Standing Heart Rate Post-Dialysis 80 BPM Temperature Pre-Dialysis 97.5 degF Temperature Post -Dialysis 97.8 degF January 02, 2024 In-Center Hemodialysis Treatment [id number]:48:53.000Z 1545-40-12C09:52:33.000Z BP Sitting (Pre-Dialysis) 147/78 mmHg BP Sitting (Post-Dialysis) 125/73 mmHg Concurrent Access: falseAV Fistula Upper Arm (Left) Arterial Sitting Heart Rate Pre-Dialysis 69 BPM BP Standing (Post-Dialysis) 139/77 mmHg Temperature Pre-Dialysis 97.9 degF Sitting Heart Ra te Post-Dialysis 73 BPM Standing Heart Rate Post-Valentina lysis 102 BPM Temperature Post-Dialysis 97 .3 degF December 29, 2023 In-Center Hemodialysis Treatment [id number]:31:31.000Z 4675-50-47L68:35:27.000Z BP Sitting (Pre-Dialysis) 135/75 mmHg BP Sitting (Post-Dialysis) 150/79 mmHg Concurrent Access: falseAV Fistula Upper Arm (Left) Arterial BP Standing (Pre-Dialysis) 136/68 mmHg BP Standing (P ost-Dialysis) 150/84 mmHg Sitting Heart Rate Pre-Dialysis 70 BPM Sitting Heart Rate Post-Dialysis 74 BPM Standing Heart Rate Pre-Dialysis 73 BPM Standing Heart Rate Post-Dialysis 85 BPM Temperature Pre-Dialysis 97.9 degF Temperature Post -Dialysis 97.3 degF December 26, 2023 In-Center Hemodialysis Treatment [id number]:31:49.000Z 0937-82-25G64:35:59.000Z BP Sitting (Pre-Dialysis) 42/75 mmHg BP Sitting (Post-Dialysis) 132/78 mmHg Concurrent Access: falseAV Fistula Upper Arm (Left) Arterial Sitting Heart Rate Pre-Dialysis 65 BPM Sitting H eart Rate Post-Dialysis 73 BPM Temperature Pre-Dialysis 98.1 degF Temperature Post -Dialysis 98.2 degF December 22, 2023 In-Center Hemodialysis Treatment [id number]:42:32.000Z 1611-01-83K42:39:42.000Z BP Sitting (Pre-Dialysis) 133/76 mmHg BP Sitting (Post-Dialysis) 118/64 mmHg Concurrent Access: falseAV Fistula Upper Arm (Left) Arterial BP Standing (Pre-Dialysis) 115/75 mmHg Sitti ng Heart Rate Post-Dialysis 66 BPM Sitting Heart Rate Pre-Dialysis 62 BPM Temperatu re Post-Dialysis 97.7 degF Standing Heart Rate Pre-Dialysis 70 BPM Temperature Pre-Dialysis 97.7 degF December 19, 2023 In-Center Hemodialysis Treatment [id number]:41:34.000Z 1812-68-40A42:43:29.000Z BP Sitting (Pre-Dialysis) 129/77 mmHg BP Sitting (Post-Dialysis) 102/55 mmHg Concurrent Access: falseAV Fistula Upper Arm (Left) Arterial BP Standing (Pre-Dialysis) 122/79 mmHg BP Standing (P ost-Dialysis) 132/74 mmHg Sitting Heart Rate Pre-Dialysis 69 BPM Sitting Heart Rate Post-Dialysis 68 BPM Standing Heart Rate Pre-Dialysis 72 BPM Standing Heart Rate Post-Dialysis 80 BPM Temperature Pre-Dialysis 97.5 degF Temperature Post -Dialysis 97.5 degF December 15, 2023 In-Center Hemodialysis Treatment [id number]:38:56.000Z 1571-31-46W09:42:17.000Z BP Sitting (Pre-Dialysis) 112/66 mmHg BP Sitting (Post-Dialysis) 100/66 mmHg Concurrent Access: falseAV Fistula Upper Arm (Left) Arterial BP Standing (Pre-Dialysis) 157/77 mmHg Sitti ng Heart Rate Post-Dialysis 87 BPM Sitting Heart Rate Pre-Dialysis 69 BPM Temperatu re Post-Dialysis 97.3 degF Standing Heart Rate Pre-Dialysis 77 BPM Temperature Pre-Dialysis 97.6 degF December 12, 2023 In-Center Hemodialysis Treatment [id number]:30:57.000Z 2816-09-23A78:38:02.000Z BP Sitting (Pre-Dialysis) 158/57 mmHg BP Sitting (Post-Dialysis) 112/65 mmHg Concurrent Access: falseAV Fistula Upper Arm (Left) Arterial Sitting Heart Rate Pre-Dialysis 74 BPM BP Standing (Post-Dialysis) 116/62 mmHg Temperature Pre-Dialysis 97.4 degF Sitting Heart Ra te Post-Dialysis 71 BPM Standing Heart Rate Post-Valentina lysis 80 BPM Temperature Post-Dialysis 98 .2 degF December 08, 2023 In-Center Hemodialysis Treatment [id number]:38:01.000Z 3898-81-36R13:50:28.000Z BP Sitting (Pre-Dialysis) 113/62 mmHg BP Sitting (Post-Dialysis) 106/61 mmHg Concurrent Access: falseAV Fistula Upper Arm (Left) Arterial BP Standing (Pre-Dialysis) 110/63 mmHg Sitti ng Heart Rate Post-Dialysis 74 BPM Sitting Heart Rate Pre-Dialysis 60 BPM Temperatu re Post-Dialysis 98.3 degF Standing Heart Rate Pre-Dialysis 60 BPM Temperature Pre-Dialysis 97.2 degF December 05, 2023 In-Center Hemodialysis Treatment [id number]:50:15.000Z 9415-24-94B27:53:41.000Z BP Sitting (Pre-Dialysis) 133/80 mmHg BP Sitting (Post-Dialysis) 110/67 mmHg Concurrent Access: falseAV Fistula Upper Arm (Left) Arterial Sitting Heart Rate Pre-Dialysis 77 BPM BP Standing (Post-Dialysis) 102/63 mmHg Temperature Pre-Dialysis 97.2 degF Sitting Heart Ra te Post-Dialysis 80 BPM Standing Heart Rate Post-Valentina lysis 94 BPM Temperature Post-Dialysis 97 .4 degF December 01, 2023 In-Center Hemodialysis Treatment [id number]:34:47.000Z 3959-20-38T58:37:47.000Z BP Sitting (Pre-Dialysis) 141/80 mmHg BP Sitting (Post-Dialysis) 123/67 mmHg Concurrent Access: falseAV Fistula Upper Arm (Left) Arterial BP Standing (Pre-Dialysis) 145/78 mmHg BP Standing (P ost-Dialysis) 118/57 mmHg Sitting Heart Rate Pre-Dialysis 95 BPM Sitting Heart Rate Post-Dialysis 71 BPM Standing Heart Rate Pre-Dialysis 71 BPM Standing Heart Rate Post-Dialysis 50 BPM Temperature Pre-Dialysis 97.2 degF Temperature Post -Dialysis 97.1 degF November 28, 2023 In-Center Hemodialysis Treatment [id number]:48:28.000Z 6777-29-93Z17:51:48.000Z BP Sitting (Pre-Dialysis) 125/71 mmHg BP Sitting (Post-Dialysis) 131/52 mmHg Concurrent Access: falseAV Fistula Upper Arm (Left) Arterial Sitting Heart Rate Pre-Dialysis 60 BPM BP Standing (Post-Dialysis) 114/83 mmHg Temperature Pre-Dialysis 97.2 degF Sitting Heart Ra te Post-Dialysis 60 BPM Standing Heart Rate Post-Valentina lysis 60 BPM November 24, 2023 In-Center Hemodialysis Treatment [id number]:34:14.000Z 0549-11-48E12:36:44.000Z BP Sitting (Pre-Dialysis) 156/86 mmHg BP Sitting (Post-Dialysis) 110/61 mmHg Concurrent Access: falseAV Fistula Upper Arm (Left) Arterial BP Standing (Pre-Dialysis) 132/91 mmHg BP Standing (P ost-Dialysis) 137/73 mmHg Sitting Heart Rate Pre-Dialysis 77 BPM Sitting Heart Rate Post-Dialysis 62 BPM Standing Heart Rate Pre-Dialysis 77 BPM Standing Heart Rate Post-Dialysis 72 BPM Temperature Pre-Dialysis 97.8 degF Temperature Post -Dialysis 97.9 degF November 21, 2023 In-Center Hemodialysis Treatment 5530-63-04T95:28:52.000Z 3393-98-41S81:32:22.000Z BP Sitting (Pre-Dialysis) 133/75 mmHg BP Sitting (Post-Dialysis) 106/58 mmHg Concurrent Access: falseAV Fistula Upper Arm (Left) Arterial Sitting Heart Rate Pre-Dialysis 60 BPM BP Standing (Post-Dialysis) 103/57 mmHg Temperature Pre-Dialysis 97.8 degF Sitting Heart Ra te Post-Dialysis 60 BPM Standing Heart Rate Post-Valentina lysis 67 BPM Temperature Post-Dialysis 98 degF November 17, 2023 In-Center Hemodialysis Treatment 2862-40-35J42:37:00.000Z [id number]:36:41.000Z BP Sitting (Pre-Dialysis) 166/99 mmHg BP Sitting (Post-Dialysis) 102/51 mmHg Concurrent Access: falseAV Fistula Upper Arm (Left) Arterial BP Standing (Pre-Dialysis) 140/79 mmHg Sitting Heart Rate Post-Dialysis 67 BPM Sitting Heart Rate Pre-Dialysis 81 BPM Temperatu re Post-Dialysis 98 degF Standing Heart Rate Pre-Dialysis 69 BPM Temperature Pre-Dialysis 97.6 degF November 13, 2023 In-Center Hemodialysis Treatment 3021-64-09G32:33:00.000Z 8368-54-88S66:40:23.000Z BP Sitting (Pre-Dialysis) 140/83 mmHg BP Sitting (Post-Dialysis) 115/71 mmHg Concurrent Access: falseAV Fistula Upper Arm (Left) Arterial BP Standing (Pre-Dialysis) 147/88 mmHg Sitting Heart Rate Post-Dialysis 66 BPM Sitting Heart Rate Pre-Dialysis 65 BPM Temperatu re Post-Dialysis 98 degF Standing Heart Rate Pre-Dialysis 67 BPM Temperature Pre-Dialysis 98.7 degF November 10, 2023 In-Center Hemodialysis Treatment [id number]:50:00.000Z 0294-49-91M67:00:00.000Z BP Sitting (Pre-Dialysis) 111/63 mmHg BP Sitting (Post-Dialysis) 145/69 mmHg Concurrent Access: falseAV Fistula Upper Arm (Left) Arterial Sitting Heart Rate Pre-Dialysis 60 BPM BP Standing (Post-Dialysis) 118/61 mmHg Temperature Pre-Dialysis 98.1 degF Sitting Heart Ra te Post-Dialysis 66 BPM Standing Heart Rate Post-Valentina lysis 65 BPM Temperature Post-Dialysis 98 .1 degF November 07, 2023 In-Center Hemodialysis Treatment 4856-61-29J08:00:00.000Z 5881-18-57O66:00:00.000Z BP Sitting (Pre-Dialysis) 121/68 mmHg BP Sitting (Post-Dialysis) 136/76 mmHg Concurrent Access: falseAV Fistula Upper Arm (Left) Arterial BP Standing (Pre-Dialysis) 117/62 mmHg BP Standing (P ost-Dialysis) 111/84 mmHg Sitting Heart Rate Pre-Dialysis 60 BPM Sitting Heart Rate Post-Dialysis 69 BPM Standing Heart Rate Pre-Dialysis 60 BPM Standing Heart Rate Post-Dialysis 66 BPM Temperature Pre-Dialysis 98.1 degF Temperature Post -Dialysis 98 degF November 03, 2023 In-Center Hemodialysis Treatment [id number]:49:00.000Z 4334-43-25X39:00:00.000Z BP Sitting (Pre-Dialysis) 148/84 mmHg BP Sitting (Post-Dialysis) 124/77 mmHg Concurrent Access: falseAV Fistula Upper Arm (Left) Arterial Sitting Heart Rate Pre-Dialysis 68 BPM BP Standing (Post-Dialysis) 134/82 mmHg Temperature Pre-Dialysis 98.1 degF Sitting Heart Ra te Post-Dialysis 60 BPM Standing Heart Rate Post-Valentina lysis 87 BPM Temperature Post-Dialysis 98 .1 degF October 31, 2023 In-Center Hemodialysis Treatment [id number]:55:00.000Z 1303-50-52N03:00:00.000Z BP Sitting (Pre-Dialysis) 123/62 mmHg BP Sitting (Post-Dialysis) 118/69 mmHg Concurrent Access: falseAV Fistula Upper Arm (Left) Arterial Sitting Heart Rate Pre-Dialysis 60 BPM BP Standing (Post-Dialysis) 120/57 mmHg Temperature Pre-Dialysis 98.1 degF Sitting Heart Ra te Post-Dialysis 64 BPM Standing Heart Rate Post-Valentina lysis 68 BPM Temperature Post-Dialysis 97 .1 degF October 27, 2023 In-Center Hemodialysis Treatment [id number]:50:00.000Z 8224-80-58G85:00:00.000Z BP Sitting (Pre-Dialysis) 140/59 mmHg BP Sitting (Post-Dialysis) 132/73 mmHg Concurrent Access: falseAV Fistula Upper Arm (Left) Arterial Sitting Heart Rate Pre-Dialysis 71 BPM BP Standing (Post-Dialysis) 127/79 mmHg Temperature Pre-Dialysis 98.2 degF Sitting Heart Ra te Post-Dialysis 73 BPM Standing Heart Rate Post-Valentina lysis 80 BPM Temperature Post-Dialysis 98 .7 degF October 24, 2023 In-Center Hemodialysis Treatment [id number]:07:00.000Z 3371-15-38Y67:12:33.000Z BP Sitting (Pre-Dialysis) 134/71 mmHg BP Sitting (Post-Dialysis) 118/64 mmHg Concurrent Access: falseAV Fistula Upper Arm (Left) Arterial BP Standing (Pre-Dialysis) 135/79 mmHg BP Standing (P ost-Dialysis) 112/58 mmHg Sitting Heart Rate Pre-Dialysis 71 BPM Sitting Heart Rate Post-Dialysis 72 BPM Standing Heart Rate Pre-Dialysis 69 BPM Standing Heart Rate Post-Dialysis 78 BPM Temperature Pre-Dialysis 97.5 degF Temperature Post -Dialysis 98.1 degF October 20, 2023 In-Center Hemodialysis Treatment [id number]:39:00.000Z 4770-83-44R47:39:28.000Z BP Sitting (Pre-Dialysis) 122/77 mmHg BP Sitting (Post-Dialysis) 121/65 mmHg Concurrent Access: falseAV Fistula Upper Arm (Left) Arterial BP Standing (Pre-Dialysis) 133/74 mmHg Sitti ng Heart Rate Post-Dialysis 73 BPM Sitting Heart Rate Pre-Dialysis 69 BPM Temperatu re Post-Dialysis 97.9 degF Standing Heart Rate Pre-Dialysis 73 BPM Temperature Pre-Dialysis 97.6 degF October 17, 2023 In-Center Hemodialysis Treatment 7085-35-25R51:33:00.000Z 2808-24-86R11:31:15.000Z BP Sitting (Pre-Dialysis) 131/73 mmHg BP Sitting (Post-Dialysis) 128/70 mmHg Concurrent Access: falseAV Fistula Upper Arm (Left) Arterial Sitting Heart Rate Pre-Dialysis 67 BPM BP Standing (Post-Dialysis) 100/62 mmHg Temperature Pre-Dialysis 97.6 degF Sitting Heart Ra te Post-Dialysis 73 BPM Standing Heart Rate Post-Valentina lysis 72 BPM Temperature Post-Dialysis 97 .9 degF October 13, 2023 In-Center Hemodialysis Treatment [id number]:33:00.000Z 0123-05-28B54:41:48.000Z BP Sitting (Pre-Dialysis) 133/69 mmHg BP Sitting (Post-Dialysis) 125/74 mmHg Concurrent Access: falseAV Fistula Upper Arm (Left) Arterial BP Standing (Pre-Dialysis) 132/92 mmHg Sitti ng Heart Rate Post-Dialysis 73 BPM Sitting Heart Rate Pre-Dialysis 73 BPM Temperatu re Post-Dialysis 98.6 degF Standing Heart Rate Pre-Dialysis 77 BPM Temperature Pre-Dialysis 97.6 degF October 10, 2023 In-Center Hemodialysis Treatment [id number]:38:00.000Z 5382-33-31J55:13:15.000Z BP Sitting (Pre-Dialysis) 147/85 mmHg BP Sitting (Post-Dialysis) 123/71 mmHg Concurrent Access: falseAV Fistula Upper Arm (Left) Arterial BP Standing (Pre-Dialysis) 141/88 mmHg Sitti ng Heart Rate Post-Dialysis 74 BPM Sitting Heart Rate Pre-Dialysis 74 BPM Temperatu re Post-Dialysis 97.5 degF Standing Heart Rate Pre-Dialysis 80 BPM Temperature Pre-Dialysis 97.8 degF October 06, 2023 In-Center Hemodialysis Treatment [id number]:34:00.000Z 6175-37-44Q07:39:40.000Z BP Sitting (Pre-Dialysis) 127/71 mmHg BP Sitting (Post-Dialysis) 129/75 mmHg Concurrent Access: falseAV Fistula Upper Arm (Left) Arterial BP Standing (Pre-Dialysis) 128/72 mmHg Sitti ng Heart Rate Post-Dialysis 78 BPM Sitting Heart Rate Pre-Dialysis 69 BPM Temperatu re Post-Dialysis 97.4 degF Standing Heart Rate Pre-Dialysis 71 BPM Temperature Pre-Dialysis 97.9 degF October 03, 2023 In-Center Hemodialysis Treatment [id number]:31:00.000Z 7651-54-62A66:33:02.000Z BP Sitting (Pre-Dialysis) 179/100 mmHg BP Sitting (Post-Dialysis) 125/75 mmHg Concurrent Access: falseAV Fistula Upper Arm (Left) Arterial Sitting Heart Rate Pre-Dialysis 86 BPM Sitting H eart Rate Post-Dialysis 81 BPM Temperature Pre-Dialysis 98 degF Temperature Post -Dialysis 97.4 degF September 29, 2023 In-Center Hemodialysis Treatment 1286-23-16G16:30:00.000Z 5223-24-16J41:34:58.000Z BP Sitting (Pre-Dialysis) 120/60 mmHg BP Sitting (Post-Dialysis) 124/72 mmHg Concurrent Access: falseAV Fistula Upper Arm (Left) Arterial Sitting Heart Rate Pre-Dialysis 68 BPM BP Standing (Post-Dialysis) 112/72 mmHg Temperature Pre-Dialysis 98.1 degF Sitting Heart Ra te Post-Dialysis 83 BPM Standing Heart Rate Post-Valentina lysis 94 BPM Temperature Post-Dialysis 97 .4 degF September 26, 2023 In-Center Hemodialysis Treatment [id number]:44:00.000Z 3235-15-46K24:47:20.000Z BP Sitting (Pre-Dialysis) 150/87 mmHg BP Sitting (Post-Dialysis) 144/78 mmHg Concurrent Access: falseAV Fistula Upper Arm (Left) Arterial BP Standing (Pre-Dialysis) 138/84 mmHg BP Standing (P ost-Dialysis) 129/63 mmHg Sitting Heart Rate Pre-Dialysis 90 BPM Sitting Heart Rate Post-Dialysis 73 BPM Standing Heart Rate Pre-Dialysis 80 BPM Standing Heart Rate Post-Dialysis 85 BPM Temperature Pre-Dialysis 98.6 degF Temperature Post -Dialysis 97.4 degF September 22, 2023 In-Center Hemodialysis Treatment [id number]:35:00.000Z 7957-71-61W01:36:33.000Z BP Sitting (Pre-Dialysis) 112/87 mmHg BP Sitting (Post-Dialysis) 115/65 mmHg Concurrent Access: falseAV Fistula Upper Arm (Left) Arterial BP Standing (Pre-Dialysis) 146/82 mmHg Sitti ng Heart Rate Post-Dialysis 78 BPM Sitting Heart Rate Pre-Dialysis 74 BPM Temperatu re Post-Dialysis 97.8 degF Standing Heart Rate Pre-Dialysis 101 BPM Temperature Pre-Dialysis 97.6 degF September 19, 2023 In-Center Hemodialysis Treatment [id number]:37:00.000Z 2938-09-48U17:38:28.000Z BP Sitting (Pre-Dialysis) 121/70 mmHg BP Sitting (Post-Dialysis) 112/63 mmHg Concurrent Access: falseAV Fistula Upper Arm (Left) Arterial Sitting Heart Rate Pre-Dialysis 85 BPM BP Standing (Post-Dialysis) 107/63 mmHg Temperature Pre-Dialysis 97.8 degF Sitting Heart Ra te Post-Dialysis 80 BPM Standing Heart Rate Post-Valentina lysis 78 BPM Temperature Post-Dialysis 97 .8 degF September 15, 2023 In-Center Hemodialysis Treatment [id number]:36:00.000Z 9629-60-87N46:37:06.000Z BP Sitting (Pre-Dialysis) 134/73 mmHg BP Sitting (Post-Dialysis) 127/67 mmHg Concurrent Access: falseAV Fistula Upper Arm (Left) Arterial Sitting Heart Rate Pre-Dialysis 70 BPM Sitting H eart Rate Post-Dialysis 67 BPM Temperature Pre-Dialysis 97.9 degF Temperature Post -Dialysis 98.3 degF September 12, 2023 In-Center Hemodialysis Treatment [id number]:46:00.000Z [id number]:46:53.000Z BP Sitting (Pre-Dialysis) 147/78 mmHg BP Sitting (Post-Dialysis) 140/82 mmHg Concurrent Access: falseAV Fistula Upper Arm (Left) Arterial BP Standing (Pre-Dialysis) 108/84 mmHg BP Standing (P ost-Dialysis) 129/64 mmHg Sitting Heart Rate Pre-Dialysis 89 BPM Sitting Heart Rate Post-Dialysis 80 BPM Standing Heart Rate Pre-Dialysis 85 BPM Standing Heart Rate Post-Dialysis 78 BPM Temperature Pre-Dialysis 97.9 degF Temperature Post -Dialysis 97.5 degF September 08, 2023 In-Center Hemodialysis Treatment [id number]:36:00.000Z [id number]:41:10.000Z BP Sitting (Pre-Dialysis) 121/62 mmHg BP Sitting (Post-Dialysis) 108/68 mmHg Concurrent Access: falseAV Fistula Upper Arm (Left) Arterial BP Standing (Pre-Dialysis) 129/57 mmHg BP Standing (P ost-Dialysis) 149/67 mmHg Sitting Heart Rate Pre-Dialysis 93 BPM Sitting Heart Rate Post-Dialysis 69 BPM Standing Heart Rate Pre-Dialysis 82 BPM Standing Heart Rate Post-Dialysis 80 BPM Temperature Pre-Dialysis 97.8 degF Temperature Post -Dialysis 97.2 degF September 05, 2023 In-Center Hemodialysis Treatment [id number]:45:00.000Z [id number]:47:50.000Z BP Sitting (Pre-Dialysis) 168/68 mmHg BP Sitting (Post-Dialysis) 127/76 mmHg Concurrent Access: falseAV Fistula Upper Arm (Left) Arterial Sitting Heart Rate Pre-Dialysis 71 BPM BP Standing (Post-Dialysis) 141/65 mmHg Temperature Pre-Dialysis 97.6 degF Sitting Heart Ra te Post-Dialysis 77 BPM Standing Heart Rate Post-Valentina lysis 71 BPM Temperature Post-Dialysis 97 .2 degF September 01, 2023 In-Center Hemodialysis Treatment [id number]:35:00.000Z [id number]:34:19.000Z BP Sitting (Pre-Dialysis) 146/82 mmHg BP Sitting (Post-Dialysis) 111/85 mmHg Concurrent Access: falseAV Fistula Upper Arm (Left) Arterial Sitting Heart Rate Pre-Dialysis 67 BPM BP Standing (Post-Dialysis) 165/65 mmHg Temperature Pre-Dialysis 97.7 degF Sitting Heart Ra te Post-Dialysis 80 BPM Standing Heart Rate Post-Valentina lysis 74 BPM Temperature Post-Dialysis 97 .1 degF August 29, 2023 In-Center Hemodialysis Treatment [id number]:09:00.000Z 2797-11-23V26:08:40.000Z BP Sitting (Pre-Dialysis) 142/83 mmHg BP Sitting (Post-Dialysis) 104/53 mmHg Concurrent Access: falseAV Fistula Upper Arm (Left) Arterial BP Standing (Pre-Dialysis) 129/73 mmHg BP Standing (P ost-Dialysis) 124/55 mmHg Sitting Heart Rate Pre-Dialysis 80 BPM Sitting Heart Rate Post-Dialysis 60 BPM Standing Heart Rate Pre-Dialysis 80 BPM Standing Heart Rate Post-Dialysis 62 BPM Temperature Pre-Dialysis 97.8 degF Temperature Post -Dialysis 97.1 degF August 25, 2023 In-Center Hemodialysis Treatment [id number]:40:00.000Z [id number]:45:32.000Z BP Sitting (Pre-Dialysis) 129/70 mmHg BP Sitting (Post-Dialysis) 129/69 mmHg Concurrent Access: falseAV Fistula Upper Arm (Left) Arterial BP Standing (Pre-Dialysis) 129/70 mmHg BP Standing (P ost-Dialysis) 119/68 mmHg Sitting Heart Rate Pre-Dialysis 73 BPM Sitting Heart Rate Post-Dialysis 71 BPM Standing Heart Rate Pre-Dialysis 73 BPM Standing Heart Rate Post-Dialysis 71 BPM Temperature Pre-Dialysis 97.6 degF Temperature Post -Dialysis 97.8 degF August 22, 2023 In-Center Hemodialysis Treatment [id number]:29:00.000Z [id number]:29:51.000Z BP Sitting (Pre-Dialysis) 127/89 mmHg BP Sitting (Post-Dialysis) 119/67 mmHg Concurrent Access: falseAV Fistula Upper Arm (Left) Arterial BP Standing (Pre-Dialysis) 123/88 mmHg Sitti ng Heart Rate Post-Dialysis 67 BPM Sitting Heart Rate Pre-Dialysis 77 BPM Temperatu re Post-Dialysis 98.6 degF Standing Heart Rate Pre-Dialysis 77 BPM Temperature Pre-Dialysis 97.6 degF August 18, 2023 In-Center Hemodialysis Treatment [id number]:50:00.000Z 9712-50-39H37:51:23.000Z BP Sitting (Pre-Dialysis) 132/79 mmHg BP Sitting (Post-Dialysis) 100/53 mmHg Concurrent Access: falseAV Fistula Upper Arm (Left) Arterial BP Standing (Pre-Dialysis) 122/70 mmHg Sitti ng Heart Rate Post-Dialysis 60 BPM Sitting Heart Rate Pre-Dialysis 89 BPM Temperatu re Post-Dialysis 97.5 degF Standing Heart Rate Pre-Dialysis 75 BPM Temperature Pre-Dialysis 98.5 degF August 15, 2023 In-Center Hemodialysis Treatment [id number]:39:00.000Z [id number]:46:49.000Z BP Sitting (Pre-Dialysis) 119/68 mmHg BP Sitting (Post-Dialysis) 115/68 mmHg Concurrent Access: falseAV Fistula Upper Arm (Left) Arterial BP Standing (Pre-Dialysis) 141/80 mmHg BP Standing (P ost-Dialysis) 125/66 mmHg Sitting Heart Rate Pre-Dialysis 74 BPM Sitting Heart Rate Post-Dialysis 80 BPM Standing Heart Rate Pre-Dialysis 74 BPM Standing Heart Rate Post-Dialysis 80 BPM Temperature Pre-Dialysis 98.3 degF Temperature Post -Dialysis 97.5 degF August 11, 2023 In-Center Hemodialysis Treatment [id number]:39:00.000Z [id number]:43:17.000Z BP Sitting (Pre-Dialysis) 144/78 mmHg BP Sitting (Post-Dialysis) 101/68 mmHg Concurrent Access: falseAV Fistula Upper Arm (Left) Arterial BP Standing (Pre-Dialysis) 109/94 mmHg Sitti ng Heart Rate Post-Dialysis 68 BPM Sitting Heart Rate Pre-Dialysis 80 BPM Temperatu re Post-Dialysis 98.3 degF Standing Heart Rate Pre-Dialysis 80 BPM Temperature Pre-Dialysis 97.9 degF August 08, 2023 In-Center Hemodialysis Treatment [id number]:33:00.000Z [id number]:41:34.000Z BP Sitting (Pre-Dialysis) 125/71 mmHg BP Sitting (Post-Dialysis) 117/65 mmHg Concurrent Access: falseAV Fistula Upper Arm (Left) Arterial Sitting Heart Rate Pre-Dialysis 80 BPM Sitting H eart Rate Post-Dialysis 71 BPM Temperature Pre-Dialysis 97.9 degF Temperature Post -Dialysis 98.3 degF August 04, 2023 In-Center Hemodialysis Treatment [id number]:40:00.000Z [id number]:41:55.000Z BP Sitting (Pre-Dialysis) 131/92 mmHg BP Sitting (Post-Dialysis) 131/68 mmHg Concurrent Access: falseAV Fistula Upper Arm (Left) Arterial BP Standing (Pre-Dialysis) 139/81 mmHg BP Standing (P ost-Dialysis) 148/77 mmHg Sitting Heart Rate Pre-Dialysis 70 BPM Sitting Heart Rate Post-Dialysis 77 BPM Standing Heart Rate Pre-Dialysis 70 BPM Standing Heart Rate Post-Dialysis 93 BPM Temperature Pre-Dialysis 97.6 degF Temperature Post -Dialysis 98.3 degF August 01, 2023 In-Center Hemodialysis Treatment [id number]:30:00.000Z 3578-21-36R00:27:26.000Z BP Sitting (Pre-Dialysis) 142/69 mmHg BP Sitting (Post-Dialysis) 126/74 mmHg Concurrent Access: falseAV Fistula Upper Arm (Left) Arterial BP Standing (Pre-Dialysis) 138/67 mmHg BP Standing (P ost-Dialysis) 129/69 mmHg Sitting Heart Rate Pre-Dialysis 80 BPM Sitting Heart Rate Post-Dialysis 80 BPM Standing Heart Rate Pre-Dialysis 82 BPM Standing Heart Rate Post-Dialysis 85 BPM Temperature Pre-Dialysis 97.6 degF Temperature Post -Dialysis 98.3 degF July 28, 2023 In-Center Hemodialysis Treatment [id number]:39:00.000Z [id number]:46:53.000Z BP Sitting (Pre-Dialysis) 124/68 mmHg BP Sitting (Post-Dialysis) 137/66 mmHg Concurrent Access: falseAV Fistula Upper Arm (Left) Arterial BP Standing (Pre-Dialysis) 126/69 mmHg BP Standing (P ost-Dialysis) 131/78 mmHg Sitting Heart Rate Pre-Dialysis 66 BPM Sitting Heart Rate Post-Dialysis 85 BPM Standing Heart Rate Pre-Dialysis 72 BPM Standing Heart Rate Post-Dialysis 80 BPM Temperature Pre-Dialysis 97.7 degF Temperature Post -Dialysis 97.6 degF July 25, 2023 In-Center Hemodialysis Treatment [id number]:50:00.000Z 3324-73-95O86:51:45.000Z BP Sitting (Pre-Dialysis) 122/69 mmHg BP Sitting (Post-Dialysis) 122/69 mmHg Concurrent Access: falseAV Fistula Upper Arm (Left) Arterial Sitting Heart Rate Pre-Dialysis 62 BPM Sitting H eart Rate Post-Dialysis 74 BPM Temperature Pre-Dialysis 97.7 degF Temperature Post -Dialysis 96.6 degF July 21, 2023 In-Center Hemodialysis Treatment [id number]:30:00.000Z [id number]:32:08.000Z BP Sitting (Pre-Dialysis) 136/79 mmHg BP Sitting (Post-Dialysis) 177/79 mmHg Concurrent Access: falseAV Fistula Upper Arm (Left) Arterial BP Standing (Pre-Dialysis) 145/77 mmHg Sitti ng Heart Rate Post-Dialysis 66 BPM Sitting Heart Rate Pre-Dialysis 60 BPM Temperatu re Post-Dialysis 98.3 degF Standing Heart Rate Pre-Dialysis 69 BPM Temperature Pre-Dialysis 97.6 degF July 18, 2023 In-Center Hemodialysis Treatment [id number]:04:00.000Z [id number]:04:04.000Z BP Sitting (Pre-Dialysis) 147/77 mmHg BP Sitting (Post-Dialysis) 88/47 mmHg Concurrent Access: falseAV Fistula Upper Arm (Left) Arterial BP Standing (Pre-Dialysis) 148/84 mmHg BP Standing (P ost-Dialysis) 93/50 mmHg Sitting Heart Rate Pre-Dialysis 60 BPM Sitting Heart Rate Post-Dialysis 80 BPM Standing Heart Rate Pre-Dialysis 60 BPM Standing Heart Rate Post-Dialysis 75 BPM Temperature Pre-Dialysis 97.8 degF Temperature Post -Dialysis 97.8 degF July 14, 2023 In-Center Hemodialysis Treatment [id number]:30:00.000Z [id number]:29:29.000Z BP Sitting (Pre-Dialysis) 135/78 mmHg BP Sitting (Post-Dialysis) 129/73 mmHg Concurrent Access: falseAV Fistula Upper Arm (Left) Arterial Sitting Heart Rate Pre-Dialysis 70 BPM BP Standi ng (Post-Dialysis) 128/82 mmHg Temperature Pre-Dialysis 98 degF Sitting Heart Ra te Post-Dialysis 75 BPM Standing Heart Rate Post-Valentina lysis 80 BPM Temperature Post-Dialysis 98 .3 degF July 11, 2023 In-Center Hemodialysis Treatment [id number]:41:00.000Z [id number]:44:18.000Z BP Sitting (Pre-Dialysis) 143/75 mmHg BP Sitting (Post-Dialysis) 147/66 mmHg Concurrent Access: falseAV Fistula Upper Arm (Left) Arterial BP Standing (Pre-Dialysis) 124/95 mmHg BP Standing (P ost-Dialysis) 128/75 mmHg Sitting Heart Rate Pre-Dialysis 71 BPM Sitting Heart Rate Post-Dialysis 60 BPM Standing Heart Rate Pre-Dialysis 80 BPM Standing Heart Rate Post-Dialysis 69 BPM Temperature Pre-Dialysis 97.9 degF Temperature Post -Dialysis 97.6 degF July 07, 2023 In-Center Hemodialysis Treatment [id number]:32:00.000Z 5098-08-33Q28:28:47.000Z BP Sitting (Pre-Dialysis) 134/70 mmHg BP Sitting (Post-Dialysis) 128/67 mmHg Concurrent Access: falseAV Fistula Upper Arm (Left) Arterial BP Standing (Pre-Dialysis) 139/73 mmHg Sitti ng Heart Rate Post-Dialysis 67 BPM Sitting Heart Rate Pre-Dialysis 69 BPM Temperatu re Post-Dialysis 97.6 degF Standing Heart Rate Pre-Dialysis 70 BPM Temperature Pre-Dialysis 98 degF July 04, 2023 In-Center Hemodialysis Treatment [id number]:32:00.000Z 8925-38-56G45:32:55.000Z BP Sitting (Pre-Dialysis) 160/81 mmHg BP Sitting (Post-Dialysis) 104/70 mmHg Concurrent Access: falseAV Fistula Upper Arm (Left) Arterial Sitting Heart Rate Pre-Dialysis 67 BPM Sitting H eart Rate Post-Dialysis 80 BPM Temperature Pre-Dialysis 98 degF Temperature Post -Dialysis 97.6 degF June 30, 2023 In-Center Hemodialysis Treatment [id number]:39:00.000Z [id number]:39:17.000Z BP Sitting (Pre-Dialysis) 154/86 mmHg BP Sitting (Post-Dialysis) 138/70 mmHg Concurrent Access: falseAV Fistula Upper Arm (Left) Arterial BP Standing (Pre-Dialysis) 168/88 mmHg Sitti ng Heart Rate Post-Dialysis 80 BPM Sitting Heart Rate Pre-Dialysis 80 BPM Temperatu re Post-Dialysis 98.5 degF Standing Heart Rate Pre-Dialysis 86 BPM Temperature Pre-Dialysis 97.6 degF June 27, 2023 In-Center Hemodialysis Treatment [id number]:40:00.000Z [id number]:39:34.000Z BP Sitting (Pre-Dialysis) 122/90 mmHg BP Sitting (Post-Dialysis) 124/70 mmHg Concurrent Access: falseAV Fistula Upper Arm (Left) Arterial BP Standing (Pre-Dialysis) 105/66 mmHg BP Standing (P ost-Dialysis) 134/76 mmHg Sitting Heart Rate Pre-Dialysis 74 BPM Sitting Heart Rate Post-Dialysis 80 BPM Standing Heart Rate Pre-Dialysis 55 BPM Standing Heart Rate Post-Dialysis 68 BPM Temperature Pre-Dialysis 97.6 degF Temperature Post -Dialysis 98.6 degF June 23, 2023 In-Center Hemodialysis Treatment [id number]:58:00.000Z [id number]:03:55.000Z BP Sitting (Pre-Dialysis) 112/89 mmHg BP Sitting (Post-Dialysis) 111/59 mmHg Concurrent Access: falseAV Fistula Upper Arm (Left) Arterial BP Standing (Pre-Dialysis) 112/89 mmHg BP Standing (P ost-Dialysis) 108/83 mmHg Sitting Heart Rate Pre-Dialysis 72 BPM Sitting Heart Rate Post-Dialysis 67 BPM Standing Heart Rate Pre-Dialysis 72 BPM Standing Heart Rate Post-Dialysis 65 BPM Temperature Pre-Dialysis 97.3 degF Temperature Post -Dialysis 97.4 degF June 20, 2023 In-Center Hemodialysis Treatment [id number]:18:00.000Z [id number]:20:10.000Z BP Sitting (Pre-Dialysis) 140/70 mmHg BP Sitting (Post-Dialysis) 119/66 mmHg Concurrent Access: falseAV Fistula Upper Arm (Left) Arterial BP Standing (Pre-Dialysis) 135/70 mmHg BP Standing (P ost-Dialysis) 122/68 mmHg Sitting Heart Rate Pre-Dialysis 61 BPM Sitting Heart Rate Post-Dialysis 60 BPM Standing Heart Rate Pre-Dialysis 66 BPM Standing Heart Rate Post-Dialysis 60 BPM Temperature Pre-Dialysis 97.3 degF Temperature Post -Dialysis 97.4 degF June 16, 2023 In-Center Hemodialysis Treatment [id number]:40:00.000Z [id number]:46:04.000Z BP Sitting (Pre-Dialysis) 140/83 mmHg BP Sitting (Post-Dialysis) 138/78 mmHg Concurrent Access: falseAV Fistula Upper Arm (Left) Arterial BP Standing (Pre-Dialysis) 145/80 mmHg BP Standing (P ost-Dialysis) 126/80 mmHg Sitting Heart Rate Pre-Dialysis 68 BPM Sitting Heart Rate Post-Dialysis 60 BPM Standing Heart Rate Pre-Dialysis 74 BPM Standing Heart Rate Post-Dialysis 65 BPM Temperature Pre-Dialysis 97.7 degF Temperature Post -Dialysis 97.4 degF June 13, 2023 In-Center Hemodialysis Treatment [id number]:09:00.000Z 0847-06-64S24:11:59.000Z BP Sitting (Pre-Dialysis) 136/10 mmHg BP Sitting (Post-Dialysis) 112/60 mmHg Concurrent Access: falseAV Fistula Upper Arm (Left) Arterial BP Standing (Pre-Dialysis) 153/76 mmHg Sitti ng Heart Rate Post-Dialysis 60 BPM Sitting Heart Rate Pre-Dialysis 88 BPM Temperatu re Post-Dialysis 97.4 degF Standing Heart Rate Pre-Dialysis 72 BPM Temperature Pre-Dialysis 97.7 degF June 09, 2023 In-Center Hemodialysis Treatment 4919-55-90H15:40:00.000Z 2029-13-66P46:44:34.000Z BP Sitting (Pre-Dialysis) 134/86 mmHg BP Sitting (Post-Dialysis) 141/78 mmHg Concurrent Access: falseAV Fistula Upper Arm (Left) Arterial BP Standing (Pre-Dialysis) 121/80 mmHg Sitting Heart Rate Post-Dialysis 80 BPM Sitting Heart Rate Pre-Dialysis 79 BPM Standing Heart Rate Pre-Dialysis 80 BPM Temperature Pre-Dialysis 97.6 degF June 06, 2023 In-Center Hemodialysis Treatment [id number]:01:00.000Z [id number]:03:36.000Z BP Sitting (Pre-Dialysis) 138/74 mmHg BP Sitting (Post-Dialysis) 104/58 mmHg Concurrent Access: falseAV Fistula Upper Arm (Left) Arterial BP Standing (Pre-Dialysis) 142/79 mmHg BP Standing (P ost-Dialysis) 125/84 mmHg Sitting Heart Rate Pre-Dialysis 60 BPM Sitting Heart Rate Post-Dialysis 60 BPM Standing Heart Rate Pre-Dialysis 62 BPM Standing Heart Rate Post-Dialysis 62 BPM Temperature Pre-Dialysis 97.8 degF Temperature Post -Dialysis 98 degF June 02, 2023 In-Center Hemodialysis Treatment [id number]:36:00.000Z 5330-55-90L56:44:50.000Z BP Sitting (Pre-Dialysis) 159/89 mmHg BP Sitting (Post-Dialysis) 105/50 mmHg Concurrent Access: falseAV Fistula Upper Arm (Left) Arterial BP Standing (Pre-Dialysis) 147/97 mmHg BP Standing (P ost-Dialysis) 111/55 mmHg Sitting Heart Rate Pre-Dialysis 72 BPM Sitting Heart Rate Post-Dialysis 77 BPM Standing Heart Rate Pre-Dialysis 77 BPM Standing Heart Rate Post-Dialysis 70 BPM Temperature Pre-Dialysis 97.6 degF Temperature Post -Dialysis 97.7 degF May 30, 2023 In-Center Hemodialysis Treatment [id number]:31:47.000Z [id number]:44:49.000Z BP Sitting (Pre-Dialysis) 129/71 mmHg BP Sitting (Post-Dialysis) 133/82 mmHg Concurrent Access: falseAV Fistula Upper Arm (Left) Arterial BP Standing (Pre-Dialysis) 134/74 mmHg BP Standing (P ost-Dialysis) 140/107 mmHg Sitting Heart Rate Pre-Dialysis 65 BPM Sitting Heart Rate Post-Dialysis 67 BPM Standing Heart Rate Pre-Dialysis 78 BPM Standing Heart Rate Post-Dialysis 66 BPM Temperature Pre-Dialysis 98 degF Temperature Post -Dialysis 97.6 degF May 26, 2023 In-Center Hemodialysis Treatment [id number]:15:00.000Z [id number]:19:00.000Z BP Sitting (Pre-Dialysis) 138/73 mmHg BP Sitting (Post-Dialysis) 115/78 mmHg Concurrent Access: falseAV Fistula Upper Arm (Left) Arterial BP Standing (Pre-Dialysis) 127/77 mmHg BP Standing (P ost-Dialysis) 120/81 mmHg Sitting Heart Rate Pre-Dialysis 65 BPM Sitting Heart Rate Post-Dialysis 79 BPM Standing Heart Rate Pre-Dialysis 80 BPM Standing Heart Rate Post-Dialysis 70 BPM Temperature Pre-Dialysis 98 degF Temperature Post -Dialysis 97.8 degF May 23, 2023 In-Center Hemodialysis Treatment [id number]:02:21.000Z [id number]:04:33.000Z BP Sitting (Pre-Dialysis) 138/74 mmHg BP Sitting (Post-Dialysis) 107/62 mmHg Concurrent Access: falseAV Fistula Upper Arm (Left) Arterial BP Standing (Pre-Dialysis) 136/74 mmHg BP Standing (P ost-Dialysis) 110/62 mmHg Sitting Heart Rate Pre-Dialysis 70 BPM Sitting Heart Rate Post-Dialysis 52 BPM Standing Heart Rate Pre-Dialysis 68 BPM Standing Heart Rate Post-Dialysis 61 BPM Temperature Pre-Dialysis 97.9 degF Temperature Post -Dialysis 97.9 degF May 19, 2023 In-Center Hemodialysis Treatment [id number]:49:00.000Z [id number]:25:08.000Z BP Sitting (Pre-Dialysis) 131/66 mmHg BP Sitting (Post-Dialysis) 106/53 mmHg Concurrent Access: falseAV Fistula Upper Arm (Left) Arterial BP Standing (Pre-Dialysis) 130/67 mmHg Sitti ng Heart Rate Post-Dialysis 80 BPM Sitting Heart Rate Pre-Dialysis 73 BPM Temperatu re Post-Dialysis 97.5 degF Standing Heart Rate Pre-Dialysis 73 BPM Temperature Pre-Dialysis 98 degF May 16, 2023 In-Center Hemodialysis Treatment [id number]:36:00.000Z 9214-34-36O25:28:34.000Z BP Sitting (Pre-Dialysis) 138/73 mmHg BP Sitting (Post-Dialysis) 110/71 mmHg Concurrent Access: falseAV Fistula Upper Arm (Left) Arterial BP Standing (Pre-Dialysis) 134/75 mmHg Sitti ng Heart Rate Post-Dialysis 78 BPM Sitting Heart Rate Pre-Dialysis 67 BPM Temperatu re Post-Dialysis 97.5 degF Standing Heart Rate Pre-Dialysis 78 BPM Temperature Pre-Dialysis 98 degF May 12, 2023 In-Center Hemodialysis Treatment [id number]:35:00.000Z 9644-07-65Z35:31:17.000Z BP Sitting (Pre-Dialysis) 149/87 mmHg BP Sitting (Post-Dialysis) 112/72 mmHg Concurrent Access: falseAV Fistula Upper Arm (Left) Arterial BP Standing (Pre-Dialysis) 147/80 mmHg Sitti ng Heart Rate Post-Dialysis 80 BPM Sitting Heart Rate Pre-Dialysis 75 BPM Temperatu re Post-Dialysis 96.7 degF Standing Heart Rate Pre-Dialysis 80 BPM Temperature Pre-Dialysis 98 degF May 09, 2023 In-Center Hemodialysis Treatment [id number]:43:00.000Z 9435-36-34S80:47:42.000Z BP Sitting (Pre-Dialysis) 156/97 mmHg BP Sitting (Post-Dialysis) 114/65 mmHg Concurrent Access: falseAV Fistula Upper Arm (Left) Arterial BP Standing (Pre-Dialysis) 121/94 mmHg BP Standing (P ost-Dialysis) 118/57 mmHg Sitting Heart Rate Pre-Dialysis 82 BPM Sitting Heart Rate Post-Dialysis 61 BPM Standing Heart Rate Pre-Dialysis 86 BPM Standing Heart Rate Post-Dialysis 74 BPM Temperature Pre-Dialysis 97.6 degF Temperature Post -Dialysis 96.9 degF May 05, 2023 In-Center Hemodialysis Treatment [id number]:31:00.000Z [id number]:35:06.000Z BP Sitting (Pre-Dialysis) 112/74 mmHg BP Sitting (Post-Dialysis) 135/67 mmHg Concurrent Access: falseAV Fistula Upper Arm (Left) Arterial BP Standing (Pre-Dialysis) 149/86 mmHg BP Standing (P ost-Dialysis) 129/73 mmHg Sitting Heart Rate Pre-Dialysis 56 BPM Sitting Heart Rate Post-Dialysis 92 BPM Standing Heart Rate Pre-Dialysis 87 BPM Standing Heart Rate Post-Dialysis 88 BPM Temperature Pre-Dialysis 97.6 degF Temperature Post -Dialysis 97.4 degF May 02, 2023 In-Center Hemodialysis Treatment [id number]:54:00.000Z [id number]:59:24.000Z BP Sitting (Pre-Dialysis) 138/79 mmHg BP Sitting (Post-Dialysis) 122/67 mmHg Concurrent Access: falseAV Fistula Upper Arm (Left) Arterial BP Standing (Pre-Dialysis) 138/82 mmHg Sitti ng Heart Rate Post-Dialysis 67 BPM Sitting Heart Rate Pre-Dialysis 81 BPM Temperatu re Post-Dialysis 97.4 degF Standing Heart Rate Pre-Dialysis 80 BPM Temperature Pre-Dialysis 98 degF April 28, 2023 In-Center Hemodialysis Treatment [id number]:41:00.000Z 7095-64-88H10:43:48.000Z BP Sitting (Pre-Dialysis) 138/78 mmHg BP Sitting (Post-Dialysis) 109/67 mmHg Concurrent Access: falseAV Fistula Upper Arm (Left) Arterial BP Standing (Pre-Dialysis) 134/89 mmHg BP Standing (P ost-Dialysis) 141/66 mmHg Sitting Heart Rate Pre-Dialysis 75 BPM Sitting Heart Rate Post-Dialysis 71 BPM Standing Heart Rate Pre-Dialysis 80 BPM Standing Heart Rate Post-Dialysis 72 BPM Temperature Pre-Dialysis 98 degF Temperature Post -Dialysis 98.3 degF April 25, 2023 In-Center Hemodialysis Treatment [id number]:33:00.000Z 1216-78-56Z61:20:00.000Z BP Sitting (Pre-Dialysis) 141/88 mmHg BP Sitting (Post-Dialysis) 117/86 mmHg Concurrent Access: falseAV Fistula Upper Arm (Left) Arterial BP Standing (Pre-Dialysis) 158/89 mmHg Sitti ng Heart Rate Post-Dialysis 80 BPM Sitting Heart Rate Pre-Dialysis 91 BPM Temperatu re Post-Dialysis 98.3 degF Standing Heart Rate Pre-Dialysis 70 BPM Temperature Pre-Dialysis 97.3 degF April 21, 2023 In-Center Hemodialysis Treatment [id number]:34:00.000Z [id number]:41:10.000Z BP Sitting (Pre-Dialysis) 125/71 mmHg BP Sitting (Post-Dialysis) 105/57 mmHg Concurrent Access: falseAV Fistula Upper Arm (Left) Arterial BP Standing (Pre-Dialysis) 135/78 mmHg Sitti ng Heart Rate Post-Dialysis 80 BPM Sitting Heart Rate Pre-Dialysis 71 BPM Temperatu re Post-Dialysis 97.5 degF Standing Heart Rate Pre-Dialysis 71 BPM Temperature Pre-Dialysis 97.9 degF April 18, 2023 In-Center Hemodialysis Treatment [id number]:40:00.000Z 9158-30-01O70:45:08.000Z BP Sitting (Pre-Dialysis) 131/70 mmHg BP Sitting (Post-Dialysis) 104/57 mmHg Concurrent Access: falseAV Fistula Upper Arm (Left) Arterial BP Standing (Pre-Dialysis) 128/80 mmHg BP Standing (P ost-Dialysis) 101/64 mmHg Sitting Heart Rate Pre-Dialysis 78 BPM Sitting Heart Rate Post-Dialysis 71 BPM Standing Heart Rate Pre-Dialysis 85 BPM Standing Heart Rate Post-Dialysis 80 BPM Temperature Pre-Dialysis 98.1 degF Temperature Post -Dialysis 97.5 degF April 14, 2023 In-Center Hemodialysis Treatment 0216-23-63P00:10:00.000Z [id number]:11:52.000Z BP Sitting (Pre-Dialysis) 131/72 mmHg BP Sitting (Post-Dialysis) 118/65 mmHg Concurrent Access: falseAV Fistula Upper Arm (Left) Arterial BP Standing (Pre-Dialysis) 136/72 mmHg Sitti ng Heart Rate Post-Dialysis 69 BPM Sitting Heart Rate Pre-Dialysis 80 BPM Temperatu re Post-Dialysis 98.5 degF Standing Heart Rate Pre-Dialysis 80 BPM Temperature Pre-Dialysis 97.6 degF April 11, 2023 In-Center Hemodialysis Treatment [id number]:29:00.000Z 5950-41-16I46:02:53.000Z BP Sitting (Pre-Dialysis) 157/91 mmHg BP Sitting (Post-Dialysis) 130/76 mmHg Concurrent Access: falseAV Fistula Upper Arm (Left) Arterial BP Standing (Pre-Dialysis) 157/96 mmHg BP Standing (P ost-Dialysis) 143/80 mmHg Sitting Heart Rate Pre-Dialysis 97 BPM Sitting Heart Rate Post-Dialysis 80 BPM Standing Heart Rate Pre-Dialysis 98 BPM Standing Heart Rate Post-Dialysis 80 BPM Temperature Pre-Dialysis 97.3 degF Temperature Post -Dialysis 98.6 degF April 07, 2023 In-Center Hemodialysis Treatment [id number]:38:00.000Z 8033-31-52K28:25:14.000Z BP Sitting (Pre-Dialysis) 106/85 mmHg BP Sitting (Post-Dialysis) 107/61 mmHg Concurrent Access: falseAV Fistula Upper Arm (Left) Arterial BP Standing (Pre-Dialysis) 124/80 mmHg BP Standing (P ost-Dialysis) 100/64 mmHg Sitting Heart Rate Pre-Dialysis 80 BPM Sitting Heart Rate Post-Dialysis 85 BPM Standing Heart Rate Pre-Dialysis 80 BPM Standing Heart Rate Post-Dialysis 82 BPM Temperature Pre-Dialysis 97.3 degF Temperature Post -Dialysis 98 degF April 04, 2023 In-Center Hemodialysis Treatment [id number]:55:00.000Z [id number]:01:49.000Z BP Sitting (Pre-Dialysis) 140/60 mmHg BP Sitting (Post-Dialysis) 121/68 mmHg Concurrent Access: falseAV Fistula Upper Arm (Left) Arterial BP Standing (Pre-Dialysis) 124/63 mmHg Sitting Heart Rate Post-Dialysis 80 BPM Sitting Heart Rate Pre-Dialysis 96 BPM Temperatu re Post-Dialysis 97 degF Standing Heart Rate Pre-Dialysis 90 BPM Temperature Pre-Dialysis 97.6 degF March 31, 2023 In-Center Hemodialysis Treatment 2554-61-31R01:30:00.000Z 7803-08-07J00:38:03.000Z BP Sitting (Pre-Dialysis) 135/84 mmHg BP Sitting (Post-Dialysis) 105/60 mmHg Concurrent Access: falseAV Fistula Upper Arm (Left) Arterial BP Standing (Pre-Dialysis) 113/76 mmHg BP Standing (P ost-Dialysis) 117/87 mmHg Sitting Heart Rate Pre-Dialysis 89 BPM Sitting Heart Rate Post-Dialysis 82 BPM Standing Heart Rate Pre-Dialysis 94 BPM Standing Heart Rate Post-Dialysis 58 BPM Temperature Pre-Dialysis 97.8 degF Temperature Post -Dialysis 98.2 degF March 28, 2023 In-Center Hemodialysis Treatment [id number]:18:00.000Z 2543-60-74H96:22:40.000Z BP Sitting (Pre-Dialysis) 140/80 mmHg BP Sitting (Post-Dialysis) 102/64 mmHg Concurrent Access: falseAV Fistula Upper Arm (Left) Arterial BP Standing (Pre-Dialysis) 124/80 mmHg Sitting Heart Rate Post-Dialysis 80 BPM Sitting Heart Rate Pre-Dialysis 80 BPM Temperatu re Post-Dialysis 98 degF Standing Heart Rate Pre-Dialysis 80 BPM Temperature Pre-Dialysis 98 degF March 24, 2023 In-Center Hemodialysis Treatment 1470-04-45K84:40:00.000Z 2556-42-46W88:40:35.000Z BP Sitting (Pre-Dialysis) 127/71 mmHg BP Sitting (Post-Dialysis) 122/67 mmHg Concurrent Access: falseAV Fistula Upper Arm (Left) Arterial BP Standing (Pre-Dialysis) 131/73 mmHg BP Standing (P ost-Dialysis) 111/57 mmHg Sitting Heart Rate Pre-Dialysis 85 BPM Sitting Heart Rate Post-Dialysis 86 BPM Standing Heart Rate Pre-Dialysis 82 BPM Standing Heart Rate Post-Dialysis 82 BPM Temperature Pre-Dialysis 98.2 degF Temperature Post -Dialysis 98.8 degF March 21, 2023 In-Center Hemodialysis Treatment [id number]:30:00.000Z 8758-58-43N50:31:54.000Z BP Sitting (Pre-Dialysis) 163/98 mmHg BP Sitting (Post-Dialysis) 137/84 mmHg Concurrent Access: falseAV Fistula Upper Arm (Left) Arterial BP Standing (Pre-Dialysis) 163/98 mmHg BP Standing (P ost-Dialysis) 139/69 mmHg Sitting Heart Rate Pre-Dialysis 80 BPM Sitting Heart Rate Post-Dialysis 88 BPM Standing Heart Rate Pre-Dialysis 80 BPM Standing Heart Rate Post-Dialysis 94 BPM Temperature Pre-Dialysis 97.5 degF Temperature Post -Dialysis 97.5 degF March 17, 2023 In-Center Hemodialysis Treatment [id number]:40:00.000Z 6908-65-89T25:49:12.000Z BP Sitting (Pre-Dialysis) 136/85 mmHg BP Sitting (Post-Dialysis) 126/85 mmHg Concurrent Access: falseAV Fistula Upper Arm (Left) Arterial BP Standing (Pre-Dialysis) 129/79 mmHg Sitti ng Heart Rate Post-Dialysis 85 BPM Sitting Heart Rate Pre-Dialysis 88 BPM Temperatu re Post-Dialysis 98.6 degF Standing Heart Rate Pre-Dialysis 80 BPM Temperature Pre-Dialysis 98.2 degF March 14, 2023 In-Center Hemodialysis Treatment [id number]:30:00.000Z 1065-33-03T06:30:20.000Z BP Sitting (Pre-Dialysis) 117/85 mmHg BP Sitting (Post-Dialysis) 123/77 mmHg Concurrent Access: falseAV Fistula Upper Arm (Left) Arterial BP Standing (Pre-Dialysis) 123/72 mmHg Sitti ng Heart Rate Post-Dialysis 73 BPM Sitting Heart Rate Pre-Dialysis 65 BPM Temperatu re Post-Dialysis 98.3 degF Standing Heart Rate Pre-Dialysis 86 BPM Temperature Pre-Dialysis 97.6 degF March 10, 2023 In-Center Hemodialysis Treatment [id number]:51:37.000Z 5929-85-23X57:50:08.000Z BP Sitting (Pre-Dialysis) 134/81 mmHg BP Sitting (Post-Dialysis) 100/79 mmHg Concurrent Access: falseAV Fistula Upper Arm (Left) Arterial BP Standing (Pre-Dialysis) 123/79 mmHg Sitti ng Heart Rate Post-Dialysis 80 BPM Sitting Heart Rate Pre-Dialysis 100 BPM Temperatu re Post-Dialysis 98.6 degF Standing Heart Rate Pre-Dialysis 80 BPM Temperature Pre-Dialysis 98.1 degF March 07, 2023 In-Center Hemodialysis Treatment 7612-31-80N08:36:00.000Z 6466-52-65X77:34:09.000Z BP Sitting (Pre-Dialysis) 143/90 mmHg BP Sitting (Post-Dialysis) 131/89 mmHg Concurrent Access: falseAV Fistula Upper Arm (Left) Arterial BP Standing (Pre-Dialysis) 147/83 mmHg Sitti ng Heart Rate Post-Dialysis 90 BPM Sitting Heart Rate Pre-Dialysis 92 BPM Temperatu re Post-Dialysis 98.6 degF Standing Heart Rate Pre-Dialysis 104 BPM Temperature Pre-Dialysis 97.6 degF March 03, 2023 In-Center Hemodialysis Treatment 7022-65-26X52:47:00.000Z [id number]:52:12.000Z BP Sitting (Pre-Dialysis) 126/78 mmHg BP Sitting (Post-Dialysis) 119/59 mmHg Concurrent Access: falseAV Fistula Upper Arm (Left) Arterial Sitting Heart Rate Pre-Dialysis 88 BPM Sitting H eart Rate Post-Dialysis 72 BPM Temperature Pre-Dialysis 98 degF Temperature Post -Dialysis 98 degF February 28, 2023 In-Center Hemodialysis Treatment 3026-42-44B29:30:00.000Z 1725-93-83F90:32:00.000Z BP Sitting (Pre-Dialysis) 139/89 mmHg BP Sitting (Post-Dialysis) 117/73 mmHg Concurrent Access: falseAV Fistula Upper Arm (Left) Arterial Sitting Heart Rate Pre-Dialysis 84 BPM Sitting H eart Rate Post-Dialysis 80 BPM Temperature Pre-Dialysis 97.9 degF Temperature Post -Dialysis 98 degF February 24, 2023 In-Center Hemodialysis Treatment [id number]:41:00.000Z 2599-14-31Z71:57:09.000Z BP Sitting (Pre-Dialysis) 144/83 mmHg BP Sitting (Post-Dialysis) 131/82 mmHg Concurrent Access: falseAV Fistula Upper Arm (Left) Arterial BP Standing (Pre-Dialysis) 138/74 mmHg Sitting Heart Rate Post-Dialysis 70 BPM Sitting Heart Rate Pre-Dialysis 80 BPM Temperatu re Post-Dialysis 98 degF Standing Heart Rate Pre-Dialysis 80 BPM Temperature Pre-Dialysis 97.8 degF February 21, 2023 In-Center Hemodialysis Treatment [id number]:02:00.000Z 0029-16-26V81:06:59.000Z BP Sitting (Pre-Dialysis) 135/90 mmHg BP Sitting (Post-Dialysis) 136/83 mmHg Concurrent Access: falseAV Fistula Upper Arm (Left) Arterial BP Standing (Pre-Dialysis) 140/87 mmHg BP Standing (P ost-Dialysis) 133/70 mmHg Sitting Heart Rate Pre-Dialysis 80 BPM Sitting Heart Rate Post-Dialysis 86 BPM Standing Heart Rate Pre-Dialysis 82 BPM Standing Heart Rate Post-Dialysis 74 BPM Temperature Pre-Dialysis 97.5 degF Temperature Post -Dialysis 97.5 degF February 17, 2023 In-Center Hemodialysis Treatment [id number]:52:00.000Z [id number]:48:54.000Z BP Sitting (Pre-Dialysis) 135/80 mmHg BP Sitting (Post-Dialysis) 108/54 mmHg Concurrent Access: falseAV Fistula Upper Arm (Left) Arterial BP Standing (Pre-Dialysis) 130/70 mmHg Sitti ng Heart Rate Post-Dialysis 60 BPM Sitting Heart Rate Pre-Dialysis 77 BPM Temperatu re Post-Dialysis 97.3 degF Standing Heart Rate Pre-Dialysis 81 BPM Temperature Pre-Dialysis 97.7 degF February 14, 2023 In-Center Hemodialysis Treatment 4730-74-77K10:45:00.000Z 4895-59-51L64:53:38.000Z BP Sitting (Pre-Dialysis) 148/97 mmHg BP Sitting (Post-Dialysis) 104/66 mmHg Concurrent Access: falseAV Fistula Upper Arm (Left) Arterial BP Standing (Pre-Dialysis) 145/90 mmHg BP Standing (P ost-Dialysis) 138/66 mmHg Sitting Heart Rate Pre-Dialysis 96 BPM Sitting Heart Rate Post-Dialysis 80 BPM Standing Heart Rate Pre-Dialysis 85 BPM Standing Heart Rate Post-Dialysis 80 BPM Temperature Pre-Dialysis 97.6 degF Temperature Post -Dialysis 97.5 degF February 10, 2023 In-Center Hemodialysis Treatment [id number]:52:00.000Z 5138-19-29X80:01:00.000Z BP Sitting (Pre-Dialysis) 121/92 mmHg BP Sitting (Post-Dialysis) 129/71 mmHg Concurrent Access: falseAV Fistula Upper Arm (Left) Arterial BP Standing (Pre-Dialysis) 139/84 mmHg BP Standing (P ost-Dialysis) 122/70 mmHg Sitting Heart Rate Pre-Dialysis 66 BPM Sitting Heart Rate Post-Dialysis 80 BPM Standing Heart Rate Pre-Dialysis 73 BPM Standing Heart Rate Post-Dialysis 90 BPM Temperature Pre-Dialysis 98 degF Temperature Post -Dialysis 97.3 degF February 07, 2023 In-Center Hemodialysis Treatment [id number]:42:00.000Z 3085-17-48I88:51:24.000Z BP Sitting (Pre-Dialysis) 148/89 mmHg BP Sitting (Post-Dialysis) 132/69 mmHg Concurrent Access: falseAV Fistula Upper Arm (Left) Arterial Sitting Heart Rate Pre-Dialysis 80 BPM BP Standing (Post-Dialysis) 129/69 mmHg Temperature Pre-Dialysis 97.4 degF Sitting Heart Ra te Post-Dialysis 74 BPM Standing Heart Rate Post-Valentina lysis 86 BPM Temperature Post-Dialysis 97 .5 degF February 03, 2023 In-Center Hemodialysis Treatment 9531-72-10Q80:40:00.000Z 1373-87-67S02:46:00.000Z BP Sitting (Pre-Dialysis) 122/79 mmHg BP Sitting (Post-Dialysis) 120/62 mmHg Concurrent Access: falseAV Fistula Upper Arm (Left) Arterial BP Standing (Pre-Dialysis) 130/79 mmHg BP Standing (P ost-Dialysis) 106/62 mmHg Sitting Heart Rate Pre-Dialysis 90 BPM Sitting Heart Rate Post-Dialysis 71 BPM Standing Heart Rate Pre-Dialysis 79 BPM Standing Heart Rate Post-Dialysis 85 BPM Temperature Pre-Dialysis 97.9 degF Temperature Post -Dialysis 97.2 degF January 31, 2023 In-Center Hemodialysis Treatment [id number]:33:00.000Z [id number]:39:45.000Z BP Sitting (Pre-Dialysis) 129/101 mmHg BP Sitting (Post-Dialysis) 123/70 mmHg Concurrent Access: falseAV Fistula Upper Arm (Left) Arterial BP Standing (Pre-Dialysis) 131/83 mmHg Sitti ng Heart Rate Post-Dialysis 72 BPM Sitting Heart Rate Pre-Dialysis 66 BPM Temperatu re Post-Dialysis 97.3 degF Standing Heart Rate Pre-Dialysis 80 BPM Temperature Pre-Dialysis 97.4 degF January 27, 2023 In-Center Hemodialysis Treatment [id number]:34:00.000Z 7995-51-28G16:47:01.000Z BP Sitting (Pre-Dialysis) 146/83 mmHg BP Sitting (Post-Dialysis) 129/71 mmHg Concurrent Access: falseAV Fistula Upper Arm (Left) Arterial BP Standing (Pre-Dialysis) 142/86 mmHg Sitti ng Heart Rate Post-Dialysis 85 BPM Sitting Heart Rate Pre-Dialysis 85 BPM Temperatu re Post-Dialysis 97.3 degF Standing Heart Rate Pre-Dialysis 86 BPM Temperature Pre-Dialysis 98.1 degF January 24, 2023 In-Center Hemodialysis Treatment [id number]:52:00.000Z 9765-43-60J81:57:06.000Z BP Sitting (Pre-Dialysis) 112/82 mmHg BP Sitting (Post-Dialysis) 118/63 mmHg Concurrent Access: falseAV Fistula Upper Arm (Left) Arterial BP Standing (Pre-Dialysis) 118/81 mmHg Sitti ng Heart Rate Post-Dialysis 80 BPM Sitting Heart Rate Pre-Dialysis 86 BPM Temperatu re Post-Dialysis 97.8 degF Standing Heart Rate Pre-Dialysis 93 BPM Temperature Pre-Dialysis 97.5 degF January 20, 2023 In-Center Hemodialysis Treatment [id number]:40:00.000Z 9693-74-11F58:36:22.000Z BP Sitting (Pre-Dialysis) 124/72 mmHg BP Sitting (Post-Dialysis) 153/87 mmHg Concurrent Access: falseAV Fistula Upper Arm (Left) Arterial BP Standing (Pre-Dialysis) 138/73 mmHg Sitti ng Heart Rate Post-Dialysis 71 BPM Sitting Heart Rate Pre-Dialysis 85 BPM Temperatu re Post-Dialysis 97.6 degF Standing Heart Rate Pre-Dialysis 88 BPM Temperature Pre-Dialysis 98.3 degF January 17, 2023 In-Center Hemodialysis Treatment [id number]:42:00.000Z 6603-58-70R47:02:19.000Z BP Sitting (Pre-Dialysis) 128/68 mmHg BP Sitting (Post-Dialysis) 150/89 mmHg Concurrent Access: falseAV Fistula Upper Arm (Left) Arterial BP Standing (Pre-Dialysis) 155/88 mmHg BP Standing (P ost-Dialysis) 169/87 mmHg Sitting Heart Rate Pre-Dialysis 85 BPM Sitting Heart Rate Post-Dialysis 72 BPM Standing Heart Rate Pre-Dialysis 87 BPM Standing Heart Rate Post-Dialysis 70 BPM Temperature Pre-Dialysis 98.5 degF Temperature Post -Dialysis 97.5 degF January 13, 2023 In-Center Hemodialysis Treatment [id number]:44:00.000Z 7378-53-45J94:46:33.000Z BP Sitting (Pre-Dialysis) 136/92 mmHg BP Sitting (Post-Dialysis) 151/93 mmHg Concurrent Access: falseAV Fistula Upper Arm (Left) Arterial BP Standing (Pre-Dialysis) 142/91 mmHg Sitti ng Heart Rate Post-Dialysis 73 BPM Sitting Heart Rate Pre-Dialysis 94 BPM Temperatu re Post-Dialysis 97.3 degF Standing Heart Rate Pre-Dialysis 94 BPM Temperature Pre-Dialysis 98.2 degF January 10, 2023 In-Center Hemodialysis Treatment [id number]:40:00.000Z 8130-39-42C50:44:38.000Z BP Sitting (Pre-Dialysis) 129/92 mmHg BP Sitting (Post-Dialysis) 138/84 mmHg Concurrent Access: falseAV Fistula Upper Arm (Left) Arterial Sitting Heart Rate Pre-Dialysis 73 BPM BP Standing (Post-Dialysis) 138/78 mmHg Temperature Pre-Dialysis 98.1 degF Sitting Heart Ra te Post-Dialysis 72 BPM Standing Heart Rate Post-Valentina lysis 74 BPM Temperature Post-Dialysis 97 .1 degF January 06, 2023 In-Center Hemodialysis Treatment [id number]:37:00.000Z 9994-60-19I55:41:02.000Z BP Sitting (Pre-Dialysis) 128/93 mmHg BP Sitting (Post-Dialysis) 124/69 mmHg Concurrent Access: falseAV Fistula Upper Arm (Left) Arterial Sitting Heart Rate Pre-Dialysis 80 BPM Sitting H eart Rate Post-Dialysis 71 BPM Temperature Pre-Dialysis 97.9 degF Temperature Post -Dialysis 97 degF January 03, 2023 In-Center Hemodialysis Treatment [id number]:49:00.000Z 7936-07-39N18:55:32.000Z BP Sitting (Pre-Dialysis) 137/78 mmHg BP Sitting (Post-Dialysis) 134/78 mmHg Concurrent Access: falseAV Fistula Upper Arm (Left) Arterial BP Standing (Pre-Dialysis) 130/90 mmHg BP Standing (P ost-Dialysis) 164/87 mmHg Sitting Heart Rate Pre-Dialysis 77 BPM Sitting Heart Rate Post-Dialysis 74 BPM Standing Heart Rate Pre-Dialysis 70 BPM Standing Heart Rate Post-Dialysis 80 BPM Temperature Pre-Dialysis 97 degF Temperature Post -Dialysis 97.5 degF December 29, 2022 In-Center Hemodialysis Treatment 1480-23-98R22:39:00.000Z 4634-42-48W63:40:19.000Z BP Sitting (Pre-Dialysis) 127/71 mmHg BP Sitting (Post-Dialysis) 145/90 mmHg Concurrent Access: falseAV Fistula Upper Arm (Left) Arterial BP Standing (Pre-Dialysis) 122/77 mmHg BP Standing (P ost-Dialysis) 148/82 mmHg Sitting Heart Rate Pre-Dialysis 71 BPM Sitting Heart Rate Post-Dialysis 73 BPM Standing Heart Rate Pre-Dialysis 60 BPM Standing Heart Rate Post-Dialysis 82 BPM Temperature Pre-Dialysis 98 degF Temperature Post -Dialysis 97.5 degF December 27, 2022 In-Center Hemodialysis Treatment [id number]:44:18.000Z 3814-97-91K09:46:28.000Z BP Sitting (Pre-Dialysis) 136/61 mmHg BP Sitting (Post-Dialysis) 143/83 mmHg Concurrent Access: falseAV Fistula Upper Arm (Left) Arterial BP Standing (Pre-Dialysis) 149/75 mmHg Sitti ng Heart Rate Post-Dialysis 65 BPM Sitting Heart Rate Pre-Dialysis 65 BPM Temperatu re Post-Dialysis 97.5 degF Standing Heart Rate Pre-Dialysis 61 BPM Temperature Pre-Dialysis 97.8 degF December 23, 2022 In-Center Hemodialysis Treatment 2085-80-92T92:36:00.000Z 6156-43-64X27:44:12.000Z BP Sitting (Pre-Dialysis) 122/82 mmHg BP Sitting (Post-Dialysis) 140/86 mmHg Concurrent Access: falseAV Fistula Upper Arm (Left) Arterial BP Standing (Pre-Dialysis) 132/74 mmHg BP Standing (P ost-Dialysis) 139/87 mmHg Sitting Heart Rate Pre-Dialysis 80 BPM Sitting Heart Rate Post-Dialysis 86 BPM Standing Heart Rate Pre-Dialysis 80 BPM Standing Heart Rate Post-Dialysis 89 BPM Temperature Pre-Dialysis 97.8 degF Temperature Post -Dialysis 98 degF December 20, 2022 In-Center Hemodialysis Treatment [id number]:56:00.000Z 1707-27-30E88:53:56.000Z BP Sitting (Pre-Dialysis) 142/82 mmHg BP Sitting (Post-Dialysis) 140/81 mmHg Concurrent Access: falseAV Fistula Upper Arm (Left) Arterial BP Standing (Pre-Dialysis) 140/70 mmHg Sitting Heart Rate Post-Dialysis 86 BPM Sitting Heart Rate Pre-Dialysis 85 BPM Temperatu re Post-Dialysis 98 degF Standing Heart Rate Pre-Dialysis 87 BPM Temperature Pre-Dialysis 98 degF December 16, 2022 In-Center Hemodialysis Treatment 3234-07-41U70:41:00.000Z 8617-14-04H80:48:52.000Z BP Sitting (Pre-Dialysis) 140/95 mmHg BP Sitting (Post-Dialysis) 136/78 mmHg Concurrent Access: falseAV Fistula Upper Arm (Left) Arterial BP Standing (Pre-Dialysis) 145/68 mmHg Sitting Heart Rate Post-Dialysis 89 BPM Sitting Heart Rate Pre-Dialysis 99 BPM Temperatu re Post-Dialysis 97 degF Standing Heart Rate Pre-Dialysis 95 BPM Temperature Pre-Dialysis 97.3 degF December 13, 2022 In-Center Hemodialysis Treatment 4133-49-14K82:36:00.000Z 4835-72-70C96:44:35.000Z BP Sitting (Pre-Dialysis) 152/47 mmHg BP Sitting (Post-Dialysis) 129/75 mmHg Concurrent Access: falseAV Fistula Upper Arm (Left) Arterial Sitting Heart Rate Pre-Dialysis 85 BPM BP Standing (Post-Dialysis) 136/65 mmHg Temperature Pre-Dialysis 98.1 degF Sitting Heart Ra te Post-Dialysis 86 BPM Standing Heart Rate Post-Valentina lysis 79 BPM Temperature Post-Dialysis 97 .2 degF December 09, 2022 In-Center Hemodialysis Treatment 0739-53-31A76:43:00.000Z 4116-36-70K20:41:11.000Z BP Sitting (Pre-Dialysis) 131/82 mmHg BP Sitting (Post-Dialysis) 128/74 mmHg Concurrent Access: falseAV Fistula Upper Arm (Left) Arterial BP Standing (Pre-Dialysis) 137/84 mmHg BP Standing (P ost-Dialysis) 125/60 mmHg Sitting Heart Rate Pre-Dialysis 97 BPM Sitting Heart Rate Post-Dialysis 86 BPM Standing Heart Rate Pre-Dialysis 97 BPM Standing Heart Rate Post-Dialysis 80 BPM Temperature Pre-Dialysis 97.5 degF Temperature Post -Dialysis 97.3 degF December 06, 2022 In-Center Hemodialysis Treatment [id number]:40:00.000Z 9160-86-26O16:42:18.000Z BP Sitting (Pre-Dialysis) 149/103 mmHg BP Sitting (Post-Dialysis) 135/84 mmHg Concurrent Access: falseAV Fistula Upper Arm (Left) Arterial Sitting Heart Rate Pre-Dialysis 97 BPM Sitting H eart Rate Post-Dialysis 86 BPM Temperature Pre-Dialysis 97.4 degF Temperature Post -Dialysis 97.5 degF December 02, 2022 In-Center Hemodialysis Treatment [id number]:53:00.000Z 8143-77-63B65:53:43.000Z BP Sitting (Pre-Dialysis) 165/87 mmHg BP Sitting (Post-Dialysis) 145/92 mmHg Concurrent Access: falseAV Fistula Upper Arm (Left) Arterial BP Standing (Pre-Dialysis) 147/93 mmHg Sitting Heart Rate Post-Dialysis 102 BPM Sitting Heart Rate Pre-Dialysis 87 BPM Standing Heart Rate Pre-Dialysis 125 BPM Temperature Pre-Dialysis 98 degF November 29, 2022 In-Center Hemodialysis Treatment 2295-53-11Y02:03:00.000Z 1052-23-38R33:09:17.000Z BP Sitting (Pre-Dialysis) 155/88 mmHg BP Sitting (Post-Dialysis) 146/93 mmHg Concurrent Access: falseAV Fistula Upper Arm (Left) Arterial BP Standing (Pre-Dialysis) 144/90 mmHg Sitti ng Heart Rate Post-Dialysis 95 BPM Sitting Heart Rate Pre-Dialysis 90 BPM Temperatu re Post-Dialysis 97.3 degF Standing Heart Rate Pre-Dialysis 94 BPM Temperature Pre-Dialysis 98.4 degF November 25, 2022 In-Center Hemodialysis Treatment [id number]:36:11.000Z 9707-66-00L00:33:17.000Z BP Sitting (Pre-Dialysis) 170/83 mmHg BP Sitting (Post-Dialysis) 165/93 mmHg Concurrent Access: falseAV Fistula Upper Arm (Left) Arterial Sitting Heart Rate Pre-Dialysis 85 BPM BP Standing (Post-Dialysis) 169/96 mmHg Temperature Pre-Dialysis 97.5 degF Sitting Heart Ra te Post-Dialysis 96 BPM Standing Heart Rate Post-Valentina lysis 100 BPM Temperature Post-Dialysis 97 .4 degF November 22, 2022 In-Center Hemodialysis Treatment [id number]:33:00.000Z 3902-58-90M70:42:04.000Z BP Sitting (Pre-Dialysis) 156/94 mmHg BP Sitting (Post-Dialysis) 152/89 mmHg Concurrent Access: falseAV Fistula Upper Arm (Left) Arterial BP Standing (Pre-Dialysis) 152/99 mmHg BP Standing (P ost-Dialysis) 140/88 mmHg Sitting Heart Rate Pre-Dialysis 97 BPM Sitting Heart Rate Post-Dialysis 106 BPM Standing Heart Rate Pre-Dialysis 105 BPM Standing Heart Rate Post-Dialysis 104 BPM Temperature Pre-Dialysis 97.3 degF Temperature Post -Dialysis 97.5 degF November 18, 2022 In-Center Hemodialysis Treatment [id number]:40:00.000Z 4985-88-47N90:50:34.000Z BP Sitting (Pre-Dialysis) 141/86 mmHg BP Sitting (Post-Dialysis) 152/99 mmHg Concurrent Access: falseAV Fistula Upper Arm (Left) Arterial Sitting Heart Rate Pre-Dialysis 90 BPM BP Standing (Post-Dialysis) 159/94 mmHg Temperature Pre-Dialysis 98.5 degF Sitting Heart Ra te Post-Dialysis 105 BPM Standing Heart Rate Post-Valentina lysis 103 BPM Temperature Post-Dialysis 97 .6 degF November 15, 2022 In-Center Hemodialysis Treatment 6034-11-52P90:18:00.000Z 6304-93-52F73:24:20.000Z BP Sitting (Pre-Dialysis) 134/82 mmHg BP Sitting (Post-Dialysis) 123/73 mmHg Concurrent Access: falseAV Fistula Upper Arm (Left) Arterial Sitting Heart Rate Pre-Dialysis 80 BPM BP Standing (Post-Dialysis) 138/91 mmHg Temperature Pre-Dialysis 97.6 degF Sitting Heart Ra te Post-Dialysis 85 BPM Standing Heart Rate Post-Valentina lysis 102 BPM Temperature Post-Dialysis 97 .6 degF November 11, 2022 In-Center Hemodialysis Treatment [id number]:45:00.000Z 1564-97-26P48:39:59.000Z BP Sitting (Pre-Dialysis) 120/97 mmHg BP Sitting (Post-Dialysis) 134/81 mmHg Concurrent Access: falseAV Fistula Upper Arm (Left) Arterial BP Standing (Pre-Dialysis) 145/84 mmHg Sitti ng Heart Rate Post-Dialysis 81 BPM Sitting Heart Rate Pre-Dialysis 80 BPM Temperatu re Post-Dialysis 97.1 degF Standing Heart Rate Pre-Dialysis 80 BPM Temperature Pre-Dialysis 97.4 degF November 08, 2022 In-Center Hemodialysis Treatment [id number]:41:00.000Z [id number]:42:44.000Z BP Sitting (Pre-Dialysis) 149/86 mmHg BP Sitting (Post-Dialysis) 145/84 mmHg Concurrent Access: falseAV Fistula Upper Arm (Left) Arterial BP Standing (Pre-Dialysis) 149/85 mmHg Sitting Heart Rate Post-Dialysis 92 BPM Sitting Heart Rate Pre-Dialysis 80 BPM Standing Heart Rate Pre-Dialysis 81 BPM Temperature Pre-Dialysis 97.5 degF November 04, 2022 In-Center Hemodialysis Treatment 6980-89-02R43:31:00.000Z 8258-35-82Z03:36:57.000Z BP Sitting (Pre-Dialysis) 104/85 mmHg BP Sitting (Post-Dialysis) 143/85 mmHg Concurrent Access: falseAV Fistula Upper Arm (Left) Arterial BP Standing (Pre-Dialysis) 149/89 mmHg Sitting Heart Rate Post-Dialysis 85 BPM Sitting Heart Rate Pre-Dialysis 80 BPM Standing Heart Rate Pre-Dialysis 80 BPM Temperature Pre-Dialysis 97.7 degF November 01, 2022 In-Center Hemodialysis Treatment [id number]:50:00.000Z 4188-85-01H98:47:29.000Z BP Sitting (Pre-Dialysis) 129/78 mmHg BP Sitting (Post-Dialysis) 153/68 mmHg Concurrent Access: falseAV Fistula Upper Arm (Left) Arterial BP Standing (Pre-Dialysis) 130/76 mmHg BP Standing (P ost-Dialysis) 159/99 mmHg Sitting Heart Rate Pre-Dialysis 80 BPM Sitting Heart Rate Post-Dialysis 87 BPM Standing Heart Rate Pre-Dialysis 80 BPM Standing Heart Rate Post-Dialysis 96 BPM Temperature Pre-Dialysis 97.8 degF Temperature Post -Dialysis 97 degF October 28, 2022 In-Center Hemodialysis Treatment [id number]:58:00.000Z 5245-77-59W00:02:17.000Z BP Sitting (Pre-Dialysis) 148/86 mmHg BP Sitting (Post-Dialysis) 134/86 mmHg Concurrent Access: falseAV Fistula Upper Arm (Left) Arterial BP Standing (Pre-Dialysis) 136/77 mmHg BP Standing (P ost-Dialysis) 152/84 mmHg Sitting Heart Rate Pre-Dialysis 90 BPM Sitting Heart Rate Post-Dialysis 87 BPM Standing Heart Rate Pre-Dialysis 74 BPM Standing Heart Rate Post-Dialysis 93 BPM Temperature Pre-Dialysis 97.8 degF Temperature Post -Dialysis 97.3 degF October 25, 2022 In-Center Hemodialysis Treatment [id number]:59:00.000Z [id number]:04:44.000Z BP Sitting (Pre-Dialysis) 140/82 mmHg BP Sitting (Post-Dialysis) 147/93 mmHg Concurrent Access: falseAV Fistula Upper Arm (Left) Arterial BP Standing (Pre-Dialysis) 136/82 mmHg BP Standing (P ost-Dialysis) 133/101 mmHg Sitting Heart Rate Pre-Dialysis 73 BPM Sitting Heart Rate Post-Dialysis 91 BPM Standing Heart Rate Pre-Dialysis 74 BPM Standing Heart Rate Post-Dialysis 101 BPM Temperature Pre-Dialysis 97.7 degF Temperature Post -Dialysis 97.6 degF October 21, 2022 In-Center Hemodialysis Treatment [id number]:38:00.000Z 2020-84-31X15:45:02.000Z BP Sitting (Pre-Dialysis) 37/77 mmHg BP Sitting (Post-Dialysis) 137/75 mmHg Concurrent Access: trueAV Fistula Upper Arm (Left) ArterialCentral Venous Catheter (CVC) Chest (Right) Venous BP Standing (Pre-Dialysis) 126/90 mmHg Sitti ng Heart Rate Post-Dialysis 73 BPM Sitting Heart Rate Pre-Dialysis 73 BPM Temperatu re Post-Dialysis 97.2 degF Standing Heart Rate Pre-Dialysis 80 BPM Temperature Pre-Dialysis 97.7 degF 2022 In-Center Hemodialysis Treatment [id number]:51:00.000Z 6017-76-24C29:56:03.000Z BP Sitting (Pre-Dialysis) 126/76 mmHg BP Sitting (Post-Dialysis) 147/89 mmHg Concurrent Access: trueAV Fistula Upper Arm (Left) ArterialCentral Venous Catheter (CVC) Chest (Right) Venous BP Standing (Pre-Dialysis) 131/74 mmHg Sitti ng Heart Rate Post-Dialysis 87 BPM Sitting Heart Rate Pre-Dialysis 80 BPM Temperatu re Post-Dialysis 97.2 degF Standing Heart Rate Pre-Dialysis 80 BPM Temperature Pre-Dialysis 97.8 degF October 14, 2022 In-Center Hemodialysis Treatment [id number]:38:00.000Z 5207-63-49K58:49:12.000Z BP Sitting (Pre-Dialysis) 157/93 mmHg BP Sitting (Post-Dialysis) 152/82 mmHg Concurrent Access: trueAV Fistula Upper Arm (Left) ArterialCentral Venous Catheter (CVC) Chest (Right) Venous BP Standing (Pre-Dialysis) 162/95 mmHg BP Standing (P ost-Dialysis) 134/77 mmHg Sitting Heart Rate Pre-Dialysis 101 BPM Sitting Heart Rate Post-Dialysis 74 BPM Standing Heart Rate Pre-Dialysis 104 BPM Standing Heart Rate Post-Dialysis 102 BPM Temperature Pre-Dialysis 97.6 degF Temperature Post -Dialysis 97.1 degF October 11, 2022 In-Center Hemodialysis Treatment [id number]:55:00.000Z 7568-66-26T56:01:56.000Z BP Sitting (Pre-Dialysis) 166/103 mmHg BP Sitting (Post-Dialysis) 151/98 mmHg Concurrent Access: trueAV Fistula Upper Arm (Left) ArterialCentral Venous Catheter (CVC) Chest (Right) Venous BP Standing (Pre-Dialysis) 161/106 mmHg Sitti ng Heart Rate Post-Dialysis 87 BPM Sitting Heart Rate Pre-Dialysis 93 BPM Temperatu re Post-Dialysis 97.2 degF Standing Heart Rate Pre-Dialysis 88 BPM Temperature Pre-Dialysis 97.6 degF October 08, 2022 In-Center Hemodialysis Treatment [id number]:45:00.000Z 3603-05-19S11:45:40.000Z BP Sitting (Pre-Dialysis) 151/96 mmHg BP Sitting (Post-Dialysis) 130/81 mmHg Concurrent Access: trueAV Fistula Upper Arm (Left) ArterialCentral Venous Catheter (CVC) Chest (Right) Venous BP Standing (Pre-Dialysis) 151/80 mmHg BP Standing (P ost-Dialysis) 145/68 mmHg Sitting Heart Rate Pre-Dialysis 80 BPM Sitting Heart Rate Post-Dialysis 80 BPM Standing Heart Rate Pre-Dialysis 80 BPM Standing Heart Rate Post-Dialysis 80 BPM Temperature Pre-Dialysis 97.1 degF Temperature Post -Dialysis 97.1 degF October 04, 2022 In-Center Hemodialysis Treatment [id number]:12:00.000Z 2751-64-36W45:13:33.000Z BP Sitting (Pre-Dialysis) 147/81 mmHg BP Sitting (Post-Dialysis) 151/82 mmHg Concurrent Access: trueAV Fistula Upper Arm (Left) ArterialCentral Venous Catheter (CVC) Chest (Right) Venous BP Standing (Pre-Dialysis) 144/88 mmHg BP Standing (P ost-Dialysis) 139/93 mmHg Sitting Heart Rate Pre-Dialysis 80 BPM Sitting Heart Rate Post-Dialysis 80 BPM Standing Heart Rate Pre-Dialysis 74 BPM Standing Heart Rate Post-Dialysis 85 BPM Temperature Pre-Dialysis 97.5 degF Temperature Post -Dialysis 97.2 degF October 01, 2022 In-Center Hemodialysis Treatment [id number]:43:00.000Z [id number]:44:08.000Z BP Sitting (Pre-Dialysis) 150/92 mmHg BP Sitting (Post-Dialysis) 132/74 mmHg Concurrent Access: falseAV Fistula Upper Arm (Left) ArterialCentral Venous Catheter (CVC) Chest (Right) Venous BP Standing (Pre-Dialysis) 138/102 mmHg BP Standing (P ost-Dialysis) 138/68 mmHg Sitting Heart Rate Pre-Dialysis 80 BPM Sitting Heart Rate Post-Dialysis 88 BPM Standing Heart Rate Pre-Dialysis 80 BPM Standing Heart Rate Post-Dialysis 74 BPM Temperature Pre-Dialysis 97.3 degF Temperature Post -Dialysis 97.3 degF September 27, 2022 In-Center Hemodialysis Treatment 8432-26-12Y48:01:18.000Z [id number]:07:19.000Z BP Sitting (Pre-Dialysis) 170/113 mmHg BP Sitting (Post-Dialysis) 151/107 mmHg Concurrent Access: falseCentral Venous Catheter (CVC) Chest (Right) ArterialAV Fistula Upper Arm (Left) Venous BP Standing (Pre-Dialysis) 172/106 mmHg BP Standing (P ost-Dialysis) 125/70 mmHg Sitting Heart Rate Pre-Dialysis 86 BPM Sitting Heart Rate Post-Dialysis 80 BPM Standing Heart Rate Pre-Dialysis 94 BPM Standing Heart Rate Post-Dialysis 80 BPM Temperature Pre-Dialysis 97.3 degF Temperature Post -Dialysis 97.5 degF September 24, 2022 In-Center Hemodialysis Treatment [id number]:50:00.000Z 0244-31-41A80:00:33.000Z BP Sitting (Pre-Dialysis) 131/107 mmHg BP Sitting (Post-Dialysis) 121/89 mmHg Concurrent Access: falseCentral Venous Catheter (CVC) Chest (Right) ArterialAV Fistula Upper Arm (Left) Venous Sitting Heart Rate Pre-Dialysis 66 BPM BP Standing (Post-Dialysis) 161/91 mmHg Temperature Pre-Dialysis 97.1 degF Sitting Heart Ra te Post-Dialysis 96 BPM Standing Heart Rate Post-Valentina lysis 93 BPM Temperature Post-Dialysis 97 .4 degF September 20, 2022 In-Center Hemodialysis Treatment [id number]:32:26.000Z 7869-15-34O04:04:56.000Z BP Sitting (Pre-Dialysis) 133/77 mmHg BP Sitting (Post-Dialysis) 124/82 mmHg Concurrent Access: falseCentral Venous Catheter (CVC) Chest (Right) ArterialAV Fistula Upper Arm (Left) Venous Sitting Heart Rate Pre-Dialysis 83 BPM BP Standing (Post-Dialysis) 118/78 mmHg Temperature Pre-Dialysis 97.3 degF Sitting Heart Ra te Post-Dialysis 68 BPM Standing Heart Rate Post-Valentina lysis 80 BPM Temperature Post-Dialysis 98 .7 degF September 17, 2022 In-Center Hemodialysis Treatment [id number]:35:00.000Z 7037-28-01E84:37:05.000Z BP Sitting (Pre-Dialysis) 158/97 mmHg BP Sitting (Post-Dialysis) 124/73 mmHg Concurrent Access: falseCentral Venous Catheter (CVC) Chest (Right) ArterialAV Fistula Upper Arm (Left) Venous BP Standing (Pre-Dialysis) 147/87 mmHg BP Standing (P ost-Dialysis) 152/98 mmHg Sitting Heart Rate Pre-Dialysis 80 BPM Sitting Heart Rate Post-Dialysis 67 BPM Standing Heart Rate Pre-Dialysis 80 BPM Standing Heart Rate Post-Dialysis 96 BPM Temperature Pre-Dialysis 97.3 degF Temperature Post -Dialysis 97.5 degF September 13, 2022 In-Center Hemodialysis Treatment [id number]:32:00.000Z 3114-01-81B75:37:30.000Z BP Sitting (Pre-Dialysis) 162/98 mmHg BP Sitting (Post-Dialysis) 162/99 mmHg Concurrent Access: falseCentral Venous Catheter (CVC) Chest (Right) ArterialAV Fistula Upper Arm (Left) Venous BP Standing (Pre-Dialysis) 154/105 mmHg BP Standing (P ost-Dialysis) 160/102 mmHg Sitting Heart Rate Pre-Dialysis 95 BPM Sitting Heart Rate Post-Dialysis 94 BPM Standing Heart Rate Pre-Dialysis 99 BPM Standing Heart Rate Post-Dialysis 96 BPM Temperature Pre-Dialysis 97.5 degF Temperature Post -Dialysis 97.5 degF September 10, 2022 In-Center Hemodialysis Treatment 5636-25-04C94:41:00.000Z 2826-26-66A38:41:35.000Z BP Sitting (Pre-Dialysis) 152/104 mmHg BP Sitting (Post-Dialysis) 148/87 mmHg Concurrent Access: falseCentral Venous Catheter (CVC) Chest (Right) ArterialAV Fistula Upper Arm (Left) Venous BP Standing (Pre-Dialysis) 178/119 mmHg BP Standing (P ost-Dialysis) 151/96 mmHg Sitting Heart Rate Pre-Dialysis 80 BPM Sitting Heart Rate Post-Dialysis 93 BPM Standing Heart Rate Pre-Dialysis 81 BPM Standing Heart Rate Post-Dialysis 90 BPM Temperature Pre-Dialysis 97.3 degF Temperature Post -Dialysis 97.3 degF September 06, 2022 In-Center Hemodialysis Treatment [id number]:42:00.000Z 8799-50-11E77:50:03.000Z BP Sitting (Pre-Dialysis) 144/85 mmHg BP Sitting (Post-Dialysis) 118/82 mmHg Concurrent Access: falseCentral Venous Catheter (CVC) Chest (Right) ArterialAV Fistula Upper Arm (Left) Venous BP Standing (Pre-Dialysis) 115/93 mmHg BP Standing (P ost-Dialysis) 135/85 mmHg Sitting Heart Rate Pre-Dialysis 73 BPM Sitting Heart Rate Post-Dialysis 86 BPM Standing Heart Rate Pre-Dialysis 81 BPM Standing Heart Rate Post-Dialysis 96 BPM Temperature Pre-Dialysis 97.4 degF Temperature Post -Dialysis 97.5 degF September 03, 2022 In-Center Hemodialysis Treatment [id number]:43:00.000Z 3216-92-62R94:54:09.000Z BP Sitting (Pre-Dialysis) 147/93 mmHg BP Sitting (Post-Dialysis) 133/65 mmHg Concurrent Access: falseCentral Venous Catheter (CVC) Chest (Right) ArterialAV Fistula Upper Arm (Left) Venous BP Standing (Pre-Dialysis) 150/92 mmHg BP Standing (P ost-Dialysis) 147/89 mmHg Sitting Heart Rate Pre-Dialysis 80 BPM Sitting Heart Rate Post-Dialysis 90 BPM Standing Heart Rate Pre-Dialysis 80 BPM Standing Heart Rate Post-Dialysis 102 BPM Temperature Pre-Dialysis 97.5 degF Temperature Post -Dialysis 97.1 degF August 30, 2022 In-Center Hemodialysis Treatment 7508-63-04S80:42:00.000Z 0412-17-14S20:47:36.000Z BP Sitting (Pre-Dialysis) 138/88 mmHg BP Sitting (Post-Dialysis) 130/96 mmHg Concurrent Access: falseCentral Venous Catheter (CVC) Chest (Right) ArterialAV Fistula Upper Arm (Left) Venous BP Standing (Pre-Dialysis) 139/92 mmHg BP Standing (P ost-Dialysis) 130/99 mmHg Sitting Heart Rate Pre-Dialysis 80 BPM Sitting Heart Rate Post-Dialysis 62 BPM Standing Heart Rate Pre-Dialysis 80 BPM Standing Heart Rate Post-Dialysis 80 BPM Temperature Pre-Dialysis 97.3 degF Temperature Post -Dialysis 97.2 degF August 27, 2022 In-Center Hemodialysis Treatment [id number]:40:00.000Z 2391-53-38P91:40:38.000Z BP Sitting (Pre-Dialysis) 167/97 mmHg BP Sitting (Post-Dialysis) 157/77 mmHg Concurrent Access: falseCentral Venous Catheter (CVC) Chest (Right) ArterialAV Fistula Upper Arm (Left) Venous BP Standing (Pre-Dialysis) 176/99 mmHg BP Standing (P ost-Dialysis) 153/93 mmHg Sitting Heart Rate Pre-Dialysis 68 BPM Sitting Heart Rate Post-Dialysis 87 BPM Standing Heart Rate Pre-Dialysis 80 BPM Standing Heart Rate Post-Dialysis 92 BPM Temperature Pre-Dialysis 97.3 degF Temperature Post -Dialysis 97.3 degF August 23, 2022 In-Center Hemodialysis Treatment 6431-92-54W60:52:00.000Z 9051-90-91I42:55:26.000Z BP Sitting (Pre-Dialysis) 139/103 mmHg BP Sitting (Post-Dialysis) 130/59 mmHg Concurrent Access: falseCentral Venous Catheter (CVC) Chest (Right) ArterialAV Fistula Upper Arm (Left) Venous BP Standing (Pre-Dialysis) 144/108 mmHg BP Standing (P ost-Dialysis) 129/55 mmHg Sitting Heart Rate Pre-Dialysis 85 BPM Sitting Heart Rate Post-Dialysis 81 BPM Standing Heart Rate Pre-Dialysis 74 BPM Standing Heart Rate Post-Dialysis 80 BPM Temperature Pre-Dialysis 97.3 degF Temperature Post -Dialysis 97.3 degF August 20, 2022 In-Center Hemodialysis Treatment [id number]:37:00.000Z 2743-02-28S12:11:40.000Z BP Sitting (Pre-Dialysis) 147/97 mmHg BP Sitting (Post-Dialysis) 150/99 mmHg Concurrent Access: falseCentral Venous Catheter (CVC) Chest (Right) Arterial BP Standing (Pre-Dialysis) 154/100 mmHg BP Standing (P ost-Dialysis) 145/96 mmHg Sitting Heart Rate Pre-Dialysis 85 BPM Sitting Heart Rate Post-Dialysis 86 BPM Standing Heart Rate Pre-Dialysis 80 BPM Standing Heart Rate Post-Dialysis 85 BPM Temperature Pre-Dialysis 97.1 degF Temperature Post -Dialysis 97.8 degF August 16, 2022 In-Center Hemodialysis Treatment 1929-67-31A90:50:00.000Z 9141-48-94I60:45:55.000Z BP Sitting (Pre-Dialysis) 135/120 mmHg BP Sitting (Post-Dialysis) 153/97 mmHg Concurrent Access: falseCentral Venous Catheter (CVC) Chest (Right) Arterial BP Standing (Pre-Dialysis) 164/106 mmHg BP Standing (P ost-Dialysis) 157/105 mmHg Sitting Heart Rate Pre-Dialysis 88 BPM Sitting Heart Rate Post-Dialysis 96 BPM Standing Heart Rate Pre-Dialysis 96 BPM Standing Heart Rate Post-Dialysis 97 BPM Temperature Pre-Dialysis 96.9 degF Temperature Post -Dialysis 97.5 degF August 13, 2022 In-Center Hemodialysis Treatment [id number]:40:00.000Z 9130-74-65K87:38:02.000Z BP Sitting (Pre-Dialysis) 150/91 mmHg BP Sitting (Post-Dialysis) 153/91 mmHg Concurrent Access: falseCentral Venous Catheter (CVC) Chest (Right) Arterial BP Standing (Pre-Dialysis) 153/94 mmHg BP Standing (P ost-Dialysis) 155/93 mmHg Sitting Heart Rate Pre-Dialysis 90 BPM Sitting Heart Rate Post-Dialysis 91 BPM Standing Heart Rate Pre-Dialysis 93 BPM Standing Heart Rate Post-Dialysis 101 BPM Temperature Pre-Dialysis 97.3 degF Temperature Post -Dialysis 97.6 degF August 09, 2022 In-Center Hemodialysis Treatment 5952-57-07I70:50:00.000Z 3103-75-29L14:06:43.000Z BP Sitting (Pre-Dialysis) 143/64 mmHg BP Sitting (Post-Dialysis) 154/94 mmHg Concurrent Access: falseCentral Venous Catheter (CVC) Chest (Right) Arterial Sitting Heart Rate Pre-Dialysis 105 BPM BP Standing (Post-Dialysis) 117/95 mmHg Temperature Pre-Dialysis 97.7 degF Sitting Heart Ra te Post-Dialysis 94 BPM Standing Heart Rate Post-Valentina lysis 77 BPM Temperature Post-Dialysis 97 .8 degF August 06, 2022 In-Center Hemodialysis Treatment 7528-53-07G32:39:00.000Z 0969-12-37H24:45:55.000Z BP Sitting (Pre-Dialysis) 155/98 mmHg BP Sitting (Post-Dialysis) 153/101 mmHg Concurrent Access: falseCentral Venous Catheter (CVC) Chest (Right) Arterial BP Standing (Pre-Dialysis) 147/101 mmHg Sitti ng Heart Rate Post-Dialysis 87 BPM Sitting Heart Rate Pre-Dialysis 86 BPM Temperatu re Post-Dialysis 97.8 degF Standing Heart Rate Pre-Dialysis 85 BPM Temperature Pre-Dialysis 97.1 degF August 02, 2022 In-Center Hemodialysis Treatment 7790-03-68D65:40:00.000Z 7755-80-79V79:44:30.000Z BP Sitting (Pre-Dialysis) 157/102 mmHg BP Sitting (Post-Dialysis) 152/107 mmHg Concurrent Access: falseCentral Venous Catheter (CVC) Chest (Right) Arterial BP Standing (Pre-Dialysis) 167/106 mmHg BP Standing (P ost-Dialysis) 165/101 mmHg Sitting Heart Rate Pre-Dialysis 80 BPM Sitting Heart Rate Post-Dialysis 99 BPM Standing Heart Rate Pre-Dialysis 86 BPM Standing Heart Rate Post-Dialysis 104 BPM Temperature Pre-Dialysis 97.8 degF Temperature Post -Dialysis 97.8 degF July 30, 2022 In-Center Hemodialysis Treatment 0313-60-59V39:40:00.000Z 5663-72-41I25:44:14.000Z BP Sitting (Pre-Dialysis) 155/91 mmHg BP Sitting (Post-Dialysis) 165/92 mmHg Concurrent Access: falseCentral Venous Catheter (CVC) Chest (Right) Arterial BP Standing (Pre-Dialysis) 156/99 mmHg BP Standing (P ost-Dialysis) 159/98 mmHg Sitting Heart Rate Pre-Dialysis 80 BPM Sitting Heart Rate Post-Dialysis 82 BPM Standing Heart Rate Pre-Dialysis 87 BPM Standing Heart Rate Post-Dialysis 95 BPM Temperature Pre-Dialysis 97.8 degF Temperature Post -Dialysis 98.7 degF July 26, 2022 In-Center Hemodialysis Treatment [id number]:54:00.000Z 4724-57-39M90:59:54.000Z BP Sitting (Pre-Dialysis) 150/102 mmHg BP Sitting (Post-Dialysis) 144/92 mmHg Concurrent Access: falseCentral Venous Catheter (CVC) Chest (Right) Arterial BP Standing (Pre-Dialysis) 152/89 mmHg BP Standing (P ost-Dialysis) 153/98 mmHg Sitting Heart Rate Pre-Dialysis 86 BPM Sitting Heart Rate Post-Dialysis 74 BPM Standing Heart Rate Pre-Dialysis 82 BPM Standing Heart Rate Post-Dialysis 95 BPM Temperature Pre-Dialysis 97.5 degF Temperature Post -Dialysis 97.8 degF July 23, 2022 In-Center Hemodialysis Treatment 0717-21-32D57:34:00.000Z 0624-08-81U38:43:00.000Z BP Sitting (Pre-Dialysis) 161/99 mmHg BP Sitting (Post-Dialysis) 152/99 mmHg Concurrent Access: falseCentral Venous Catheter (CVC) Chest (Right) Arterial BP Standing (Pre-Dialysis) 163/108 mmHg BP Standing (P ost-Dialysis) 157/99 mmHg Sitting Heart Rate Pre-Dialysis 94 BPM Sitting Heart Rate Post-Dialysis 87 BPM Standing Heart Rate Pre-Dialysis 90 BPM Standing Heart Rate Post-Dialysis 90 BPM Temperature Pre-Dialysis 97.3 degF Temperature Post -Dialysis 97.5 degF July 19, 2022 In-Center Hemodialysis Treatment 2790-88-40B66:00:00.000Z 4820-08-64W24:04:54.000Z BP Sitting (Pre-Dialysis) 155/98 mmHg BP Sitting (Post-Dialysis) 157/91 mmHg Concurrent Access: falseCentral Venous Catheter (CVC) Chest (Right) Arterial BP Standing (Pre-Dialysis) 154/96 mmHg BP Standing (P ost-Dialysis) 153/100 mmHg Sitting Heart Rate Pre-Dialysis 72 BPM Sitting Heart Rate Post-Dialysis 80 BPM Standing Heart Rate Pre-Dialysis 73 BPM Standing Heart Rate Post-Dialysis 99 BPM Temperature Pre-Dialysis 97.5 degF Temperature Post -Dialysis 97.5 degF July 16, 2022 In-Center Hemodialysis Treatment [id number]:41:00.000Z 1422-91-66K70:38:59.000Z BP Sitting (Pre-Dialysis) 159/104 mmHg BP Sitting (Post-Dialysis) 161/98 mmHg Concurrent Access: falseCentral Venous Catheter (CVC) Chest (Right) Arterial BP Standing (Pre-Dialysis) 178/107 mmHg BP Standing (P ost-Dialysis) 161/98 mmHg Sitting Heart Rate Pre-Dialysis 80 BPM Sitting Heart Rate Post-Dialysis 88 BPM Standing Heart Rate Pre-Dialysis 89 BPM Standing Heart Rate Post-Dialysis 88 BPM Temperature Pre-Dialysis 97.2 degF Temperature Post -Dialysis 97.6 degF July 12, 2022 In-Center Hemodialysis Treatment 2139-73-66J01:48:00.000Z 3225-61-32M28:57:47.000Z BP Sitting (Pre-Dialysis) 173/108 mmHg BP Sitting (Post-Dialysis) 164/113 mmHg Concurrent Access: falseCentral Venous Catheter (CVC) Chest (Right) Arterial BP Standing (Pre-Dialysis) 171/110 mmHg BP Standing (P ost-Dialysis) 168/110 mmHg Sitting Heart Rate Pre-Dialysis 87 BPM Sitting Heart Rate Post-Dialysis 80 BPM Standing Heart Rate Pre-Dialysis 80 BPM Standing Heart Rate Post-Dialysis 96 BPM Temperature Pre-Dialysis 97.8 degF Temperature Post -Dialysis 97.8 degF July 09, 2022 In-Center Hemodialysis Treatment 2073-79-29Q76:40:00.000Z 8354-45-47P97:36:28.000Z BP Sitting (Pre-Dialysis) 162/100 mmHg BP Sitting (Post-Dialysis) 150/100 mmHg Concurrent Access: falseCentral Venous Catheter (CVC) Chest (Right) Arterial Sitting Heart Rate Pre-Dialysis 80 BPM Sitting H eart Rate Post-Dialysis 82 BPM Temperature Pre-Dialysis 97.6 degF Temperature Post -Dialysis 97.7 degF July 05, 2022 In-Center Hemodialysis Treatment 6383-20-26W67:39:00.000Z 3765-25-01N18:44:28.000Z BP Sitting (Pre-Dialysis) 163/103 mmHg BP Sitting (Post-Dialysis) 141/99 mmHg Concurrent Access: falseCentral Venous Catheter (CVC) Chest (Right) Arterial BP Standing (Pre-Dialysis) 165/105 mmHg BP Standing (P ost-Dialysis) 152/109 mmHg Sitting Heart Rate Pre-Dialysis 80 BPM Sitting Heart Rate Post-Dialysis 65 BPM Standing Heart Rate Pre-Dialysis 80 BPM Standing Heart Rate Post-Dialysis 69 BPM Temperature Pre-Dialysis 97.8 degF Temperature Post -Dialysis 97.7 degF July 02, 2022 In-Center Hemodialysis Treatment 9489-16-95Y13:43:00.000Z 7043-28-43W96:46:21.000Z BP Sitting (Pre-Dialysis) 195/116 mmHg BP Sitting (Post-Dialysis) 155/102 mmHg Concurrent Access: falseCentral Venous Catheter (CVC) Chest (Right) Arterial BP Standing (Pre-Dialysis) 170/105 mmHg BP Standing (P ost-Dialysis) 150/98 mmHg Sitting Heart Rate Pre-Dialysis 80 BPM Sitting Heart Rate Post-Dialysis 80 BPM Standing Heart Rate Pre-Dialysis 85 BPM Standing Heart Rate Post-Dialysis 88 BPM Temperature Pre-Dialysis 97.3 degF Temperature Post -Dialysis 97.8 degF June 28, 2022 In-Center Hemodialysis Treatment 0505-01-08F15:40:00.000Z 5959-54-05D30:46:05.000Z BP Sitting (Pre-Dialysis) 156/110 mmHg BP Sitting (Post-Dialysis) 145/114 mmHg Concurrent Access: falseCentral Venous Catheter (CVC) Chest (Right) Arterial BP Standing (Pre-Dialysis) 186/110 mmHg Sitti ng Heart Rate Post-Dialysis 94 BPM Sitting Heart Rate Pre-Dialysis 77 BPM Temperatu re Post-Dialysis 97.5 degF Standing Heart Rate Pre-Dialysis 71 BPM Temperature Pre-Dialysis 97.9 degF June 25, 2022 In-Center Hemodialysis Treatment 1644-92-93B46:07:00.000Z 2159-46-43E78:58:02.000Z BP Sitting (Pre-Dialysis) 159/96 mmHg BP Sitting (Post-Dialysis) 166/98 mmHg Concurrent Access: falseCentral Venous Catheter (CVC) Chest (Right) Arterial BP Standing (Pre-Dialysis) 155/97 mmHg BP Standing (P ost-Dialysis) 162/100 mmHg Sitting Heart Rate Pre-Dialysis 80 BPM Sitting Heart Rate Post-Dialysis 89 BPM Standing Heart Rate Pre-Dialysis 80 BPM Standing Heart Rate Post-Dialysis 98 BPM Temperature Pre-Dialysis 97.8 degF Temperature Post -Dialysis 97 degF June 21, 2022 In-Center Hemodialysis Treatment 1383-67-96G45:48:00.000Z 6848-24-55X20:52:36.000Z BP Sitting (Pre-Dialysis) 158/99 mmHg BP Sitting (Post-Dialysis) 128/83 mmHg Concurrent Access: falseCentral Venous Catheter (CVC) Chest (Right) Arterial Sitting Heart Rate Pre-Dialysis 80 BPM BP Standi ng (Post-Dialysis) 161/90 mmHg Temperature Pre-Dialysis 97 degF Sitting Heart Ra te Post-Dialysis 73 BPM Standing Heart Rate Post-Valentina lysis 95 BPM Temperature Post-Dialysis 97 .8 degF June 18, 2022 In-Center Hemodialysis Treatment [id number]:49:00.000Z 5279-09-74Y58:54:31.000Z BP Sitting (Pre-Dialysis) 166/103 mmHg BP Sitting (Post-Dialysis) 155/100 mmHg Concurrent Access: falseCentral Venous Catheter (CVC) Chest (Right) Arterial BP Standing (Pre-Dialysis) 185/108 mmHg BP Standing (P ost-Dialysis) 158/101 mmHg Sitting Heart Rate Pre-Dialysis 80 BPM Sitting Heart Rate Post-Dialysis 87 BPM Standing Heart Rate Pre-Dialysis 69 BPM Standing Heart Rate Post-Dialysis 88 BPM Temperature Pre-Dialysis 97.3 degF Temperature Post -Dialysis 97.1 degF June 14, 2022 In-Center Hemodialysis Treatment [id number]:52:00.000Z 8302-32-37A24:58:01.000Z BP Sitting (Pre-Dialysis) 180/115 mmHg BP Sitting (Post-Dialysis) 154/104 mmHg Concurrent Access: falseCentral Venous Catheter (CVC) Chest (Right) Arterial BP Standing (Pre-Dialysis) 122/90 mmHg BP Standing (P ost-Dialysis) 171/109 mmHg Sitting Heart Rate Pre-Dialysis 80 BPM Sitting Heart Rate Post-Dialysis 88 BPM Standing Heart Rate Pre-Dialysis 66 BPM Standing Heart Rate Post-Dialysis 90 BPM Temperature Pre-Dialysis 97.5 degF Temperature Post -Dialysis 97.8 degF June 11, 2022 In-Center Hemodialysis Treatment [id number]:49:00.000Z 9106-79-39Y16:41:37.000Z BP Sitting (Pre-Dialysis) 176/106 mmHg BP Sitting (Post-Dialysis) 166/102 mmHg Concurrent Access: falseCentral Venous Catheter (CVC) Chest (Right) Arterial BP Standing (Pre-Dialysis) 177/107 mmHg Sitti ng Heart Rate Post-Dialysis 88 BPM Sitting Heart Rate Pre-Dialysis 80 BPM Temperatu re Post-Dialysis 97 degF Standing Heart Rate Pre-Dialysis 86 BPM Temperature Pre-Dialysis 97.5 degF June 07, 2022 In-Center Hemodialysis Treatment 0184-17-01L74:28:12.000Z 1167-66-68P68:13:01.000Z BP Sitting (Pre-Dialysis) 149/89 mmHg BP Sitting (Post-Dialysis) 117/84 mmHg Concurrent Access: falseCentral Venous Catheter (CVC) Chest (Right) Arterial BP Standing (Pre-Dialysis) 157/98 mmHg Sitti ng Heart Rate Post-Dialysis 73 BPM Sitting Heart Rate Pre-Dialysis 80 BPM Temperatu re Post-Dialysis 97.8 degF Standing Heart Rate Pre-Dialysis 80 BPM Temperature Pre-Dialysis 97.8 degF June 04, 2022 In-Center Hemodialysis Treatment 9668-79-13K02:50:00.000Z 6369-69-16N98:52:15.000Z BP Sitting (Pre-Dialysis) 190/111 mmHg BP Sitting (Post-Dialysis) 173/108 mmHg Concurrent Access: falseCentral Venous Catheter (CVC) Chest (Right) Arterial BP Standing (Pre-Dialysis) 178/116 mmHg Sitti ng Heart Rate Post-Dialysis 80 BPM Sitting Heart Rate Pre-Dialysis 68 BPM Temperatu re Post-Dialysis 97.9 degF Standing Heart Rate Pre-Dialysis 77 BPM Temperature Pre-Dialysis 98 degF May 31, 2022 In-Center Hemodialysis Treatment 0169-25-50U40:40:00.000Z 3248-55-20T44:45:14.000Z BP Sitting (Pre-Dialysis) 156/91 mmHg BP Sitting (Post-Dialysis) 148/92 mmHg Concurrent Access: falseCentral Venous Catheter (CVC) Chest (Right) Arterial BP Standing (Pre-Dialysis) 163/100 mmHg BP Standing (P ost-Dialysis) 156/98 mmHg Sitting Heart Rate Pre-Dialysis 80 BPM Sitting Heart Rate Post-Dialysis 86 BPM Standing Heart Rate Pre-Dialysis 86 BPM Standing Heart Rate Post-Dialysis 85 BPM Temperature Pre-Dialysis 97.8 degF Temperature Post -Dialysis 97.8 degF May 28, 2022 In-Center Hemodialysis Treatment 1523-79-90C97:58:00.000Z 3735-14-63I67:35:59.000Z BP Sitting (Pre-Dialysis) 117/57 mmHg BP Sitting (Post-Dialysis) 103/56 mmHg Concurrent Access: falseCentral Venous Catheter (CVC) Chest (Right) Arterial BP Standing (Pre-Dialysis) 134/98 mmHg BP Standing (P ost-Dialysis) 112/82 mmHg Sitting Heart Rate Pre-Dialysis 62 BPM Sitting Heart Rate Post-Dialysis 72 BPM Standing Heart Rate Pre-Dialysis 98 BPM Standing Heart Rate Post-Dialysis 80 BPM Temperature Pre-Dialysis 97 degF Temperature Post -Dialysis 98.5 degF May 24, 2022 In-Center Hemodialysis Treatment 2246-06-80Z09:44:00.000Z 4390-85-87C65:49:00.000Z BP Sitting (Pre-Dialysis) 156/90 mmHg BP Sitting (Post-Dialysis) 138/77 mmHg Concurrent Access: falseCentral Venous Catheter (CVC) Chest (Right) Arterial BP Standing (Pre-Dialysis) 158/97 mmHg BP Standing (P ost-Dialysis) 153/83 mmHg Sitting Heart Rate Pre-Dialysis 71 BPM Sitting Heart Rate Post-Dialysis 73 BPM Standing Heart Rate Pre-Dialysis 71 BPM Standing Heart Rate Post-Dialysis 81 BPM Temperature Pre-Dialysis 97.8 degF Temperature Post -Dialysis 97.8 degF May 21, 2022 In-Center Hemodialysis Treatment [id number]:59:00.000Z 4823-10-23E22:02:00.000Z BP Sitting (Pre-Dialysis) 171/97 mmHg BP Sitting (Post-Dialysis) 149/93 mmHg Concurrent Access: falseCentral Venous Catheter (CVC) Chest (Right) Arterial BP Standing (Pre-Dialysis) 170/111 mmHg BP Standing (P ost-Dialysis) 125/95 mmHg Sitting Heart Rate Pre-Dialysis 77 BPM Sitting Heart Rate Post-Dialysis 80 BPM Standing Heart Rate Pre-Dialysis 80 BPM Standing Heart Rate Post-Dialysis 85 BPM Temperature Pre-Dialysis 97.4 degF Temperature Post -Dialysis 97.8 degF May 17, 2022 In-Center Hemodialysis Treatment [id number]:52:00.000Z 4686-88-19K76:57:12.000Z BP Sitting (Pre-Dialysis) 162/102 mmHg BP Sitting (Post-Dialysis) 157/100 mmHg Concurrent Access: falseCentral Venous Catheter (CVC) Chest (Right) Arterial Sitting Heart Rate Pre-Dialysis 71 BPM BP Standing (Post-Dialysis) 154/116 mmHg Temperature Pre-Dialysis 97.8 degF Sitting Heart Ra te Post-Dialysis 85 BPM Standing Heart R ate Post-Dialysis 96 BPM Temperature Post-Dialysis 97 .8 degF May 14, 2022 In-Center Hemodialysis Treatment 5415-02-09O23:42:00.000Z 2144-05-64J35:47:55.000Z BP Sitting (Pre-Dialysis) 167/90 mmHg BP Sitting (Post-Dialysis) 106/82 mmHg Concurrent Access: falseCentral Venous Catheter (CVC) Chest (Right) Arterial BP Standing (Pre-Dialysis) 130/85 mmHg BP Standing (P ost-Dialysis) 142/80 mmHg Sitting Heart Rate Pre-Dialysis 81 BPM Sitting Heart Rate Post-Dialysis 93 BPM Standing Heart Rate Pre-Dialysis 82 BPM Standing Heart Rate Post-Dialysis 90 BPM Temperature Pre-Dialysis 97.8 degF Temperature Post -Dialysis 98.5 degF May 10, 2022 [facility] Hem[facility]ialysis Treatment [id number]:00.000Z [id number]:10:39.000Z BP Sitting (Pre-Dialysis) 147/96 mmHg BP Sitting (Post-Dialysis) 128/80 mmHg Concurrent Access: falseCentral Venous Catheter (CVC) Chest (Right) Arterial BP Standing (Pre-Dialysis) 100/53 mmHg BP Standing (P ost-Dialysis) 139/78 mmHg Sitting Heart Rate Pre-Dialysis 77 BPM Sitting Heart Rate Post-Dialysis 80 BPM Standing Heart Rate Pre-Dialysis 77 BPM Standing Heart Rate Post-Dialysis 80 BPM Temperature Pre-Dialysis 97.8 degF Temperature Post -Dialysis 97.6 degF May 07, 2022 Backup Hemodialysis Treatment [id number]:00.000Z [id number]:54:30.000Z BP Sitting (Pre-Dialysis) 161/103 mmHg BP Sitting (Post-Dialysis) 162/91 mmHg Concurrent Access: falseCentral Venous Catheter (CVC) Chest (Right) Arterial BP Standing (Pre-Dialysis) 163/105 mmHg BP Standing (P ost-Dialysis) 150/90 mmHg Sitting Heart Rate Pre-Dialysis 80 BPM Sitting Heart Rate Post-Dialysis 86 BPM Standing Heart Rate Pre-Dialysis 80 BPM Standing Heart Rate Post-Dialysis 95 BPM Temperature Pre-Dialysis 96.9 degF Temperature Post -Dialysis 97.8 degF May 05, 2022 Sequential Treatment [id number]:00.000Z [id number]:26:10.000Z BP Sitting (Pre-Dialysis) 142/93 mmHg BP Sitting (Post-Dialysis) 137/91 mmHg Concurrent Access: falseCentral Venous Catheter (CVC) Chest (Right) Arterial BP Standing (Pre-Dialysis) 145/91 mmHg BP Standing (P ost-Dialysis) 143/93 mmHg Sitting Heart Rate Pre-Dialysis 80 BPM Sitting Heart Rate Post-Dialysis 96 BPM Standing Heart Rate Pre-Dialysis 80 BPM Standing Heart Rate Post-Dialysis 86 BPM Temperature Pre-Dialysis 98.5 degF Temperature Post -Dialysis 97.3 degF May 03, 2022 Backup Hemodialysis Treatment [id number]:00.000Z [id number]:47:31.000Z BP Sitting (Pre-Dialysis) 148/100 mmHg BP Sitting (Post-Dialysis) 121/89 mmHg Concurrent Access: falseCentral Venous Catheter (CVC) Chest (Right) Arterial BP Standing (Pre-Dialysis) 140/95 mmHg BP Standing (P ost-Dialysis) 114/90 mmHg Sitting Heart Rate Pre-Dialysis 80 BPM Sitting Heart Rate Post-Dialysis 80 BPM Standing Heart Rate Pre-Dialysis 80 BPM Standing Heart Rate Post-Dialysis 96 BPM Temperature Pre-Dialysis 97.8 degF Temperature Post -Dialysis 97.8 degF April 30, 2022 Backup Hemodialysis Treatment [id number]:49:00.000Z [id number]:47:30.000Z BP Sitting (Pre-Dialysis) 164/93 mmHg BP Sitting (Post-Dialysis) 129/80 mmHg Concurrent Access: falseCentral Venous Catheter (CVC) Chest (Right) Arterial BP Standing (Pre-Dialysis) 101/90 mmHg BP Standing (P ost-Dialysis) 130/77 mmHg Sitting Heart Rate Pre-Dialysis 80 BPM Sitting Heart Rate Post-Dialysis 74 BPM Standing Heart Rate Pre-Dialysis 77 BPM Standing Heart Rate Post-Dialysis 77 BPM Temperature Pre-Dialysis 97.3 degF Temperature Post -Dialysis 97.4 degF April 26, 2022 Backup Hemodialysis Treatment [id number]:00:00.000Z [id number]:09:00.000Z BP Sitting (Pre-Dialysis) 154/86 mmHg BP Sitting (Post-Dialysis) 168/95 mmHg Concurrent Access: falseCentral Venous Catheter (CVC) Chest (Right) Arterial BP Standing (Pre-Dialysis) 142/80 mmHg BP Standing (P ost-Dialysis) 138/89 mmHg Sitting Heart Rate Pre-Dialysis 69 BPM Sitting Heart Rate Post-Dialysis 74 BPM Standing Heart Rate Pre-Dialysis 67 BPM Standing Heart Rate Post-Dialysis 95 BPM Temperature Pre-Dialysis 97.8 degF Temperature Post -Dialysis 97.9 degF April 23, 2022 Backup Hemodialysis Treatment [id number]:00.000Z [id number]:54:13.000Z BP Sitting (Pre-Dialysis) 170/94 mmHg BP Sitting (Post-Dialysis) 139/81 mmHg Concurrent Access: falseCentral Venous Catheter (CVC) Chest (Right) Arterial BP Standing (Pre-Dialysis) 156/89 mmHg BP Standing (P ost-Dialysis) 151/98 mmHg Sitting Heart Rate Pre-Dialysis 70 BPM Sitting Heart Rate Post-Dialysis 80 BPM Standing Heart Rate Pre-Dialysis 68 BPM Standing Heart Rate Post-Dialysis 87 BPM Temperature Pre-Dialysis 97.3 degF Temperature Post -Dialysis 97.8 degF April 21, 2022 [facility] April 20, 2022 [facility] April 19, 2022 Backup Hemodialysis Treatment [id number]:01:00.000Z [id number]:06:00.000Z BP Sitting (Pre-Dialysis) 153/95 mmHg BP Sitting (Post-Dialysis) 137/91 mmHg Concurrent Access: falseCentral Venous Catheter (CVC) Chest (Right) Arterial BP Standing (Pre-Dialysis) 150/97 mmHg BP Standing (P ost-Dialysis) 140/90 mmHg Sitting Heart Rate Pre-Dialysis 74 BPM Sitting Heart Rate Post-Dialysis 80 BPM Standing Heart Rate Pre-Dialysis 72 BPM Standing Heart Rate Post-Dialysis 80 BPM Temperature Pre-Dialysis 97.8 degF Temperature Post -Dialysis 97.8 degF April 18, 2022 [facility] April 17, 2022 [facility] April 16, 2022 Backup Hemodialysis Treatment [id number]:49:00.000Z [id number]:53:00.000Z BP Sitting (Pre-Dialysis) 150/88 mmHg BP Sitting (Post-Dialysis) 122/71 mmHg Concurrent Access: falseCentral Venous Catheter (CVC) Chest (Right) Arterial BP Standing (Pre-Dialysis) 146/89 mmHg BP Standing (P ost-Dialysis) 127/78 mmHg Sitting Heart Rate Pre-Dialysis 80 BPM Sitting Heart Rate Post-Dialysis 80 BPM Standing Heart Rate Pre-Dialysis 80 BPM Standing Heart Rate Post-Dialysis 85 BPM Temperature Pre-Dialysis 97 degF Temperature Post -Dialysis 97.8 degF April 15, 2022 [facility] April 14, 2022 [facility] April 13, 2022 [facility] April 12, 2022 [facility]up Hemodialysis Treatment [id number]:00.000Z [id number]:19:00.000Z BP Sitting (Pre-Dialysis) 137/91 mmHg BP Sitting (Post-Dialysis) 129/73 mmHg Concurrent Access: falseCentral Venous Catheter (CVC) Chest (Right) Arterial BP Standing (Pre-Dialysis) 101/56 mmHg BP Standing (P ost-Dialysis) 133/89 mmHg Sitting Heart Rate Pre-Dialysis 80 BPM Sitting Heart Rate Post-Dialysis 60 BPM Standing Heart Rate Pre-Dialysis 67 BPM Standing Heart Rate Post-Dialysis 80 BPM Temperature Pre-Dialysis 97.5 degF Temperature Post -Dialysis 97.9 degF April 11, 2022 [facility] April 10, 2022 [facility] April 09, 2022 [facility] April 08, 2022 [facility] April 07, 2022 [facility] April 06, 2022 [facility] April 05, 2022 [facility] April 04, 2022 [facility] April 03, 2022 [facility] April 02, 2022 [facility] April 01, 2022 [facility] BP Sitting (Pre-Dialysis) 133/85 mmHg BP Standing (Pre-Dialysis) 118/77 mmHg Sitting Heart Rate Pre-Dialysis 83 BPM Standing Heart Rate Pre-Dialysis 74 BPM Temperature Pre-Dialysis 97.7 degF Weight Pre-Dialysis 40.3 kg April 01, 2022 [facility] March 31, 2022 [facility] March 30, 2022 [facility] March 29, 2022 [facility] March 28, 2022 [facility] March 27, 2022 [facility] March 26, 2022 [facility] March 25, 2022 [facility] March 24, 2022 [facility] BP Sitting (Pre-Dialysis) 120/60 mmHg BP Standing (Pre-Dialysis) 117/62 mmHg Sitting Heart Rate Pre-Dialysis 96 BPM Standing Heart Rate Pre-Dialysis 93 BPM Temperature Pre-Dialysis 98.1 degF Weight Pre-Dialysis 42.1 kg March 24, 2022 [facility] March 23, 2022 [facility] March 22, 2022 [facility] March 21, 2022 [facility] March 20, 2022 [facility] March 19, 2022 [facility] March 18, 2022 [facility] March 17, 2022 [facility] March 16, 2022 [facility] March 15, 2022 [facility] March 14, 2022 [facility] March 13, 2022 [facility] March 12, 2022 [facility] March 11, 2022 [facility] March 10, 2022 [facility] March 09, 2022 [facility] March 08, 2022 [facility] March 07, 2022 [facility] March 06, 2022 [facility] March 05, 2022 [facility] March 04, 2022 [facility] March 03, 2022 [facility] March 02, 2022 [facility] March 01, 2022 [facility] February 28, 2022 [facility] February 27, 2022 [facility] BP Sitting (Pre-Dialysis) 130/88 mmHg BP Standing (Pre-Dialysis) 123/82 mmHg Sitting Heart Rate Pre-Dialysis 86 BPM Standing Heart Rate Pre-Dialysis 88 BPM Temperature Pre-Dialysis 97.6 degF Weight Pre-Dialysis 41.1 kg February 27, 2022 [facility] February 26, 2022 [facility] February 25, 2022 [facility] February 24, 2022 [facility] February 23, 2022 [facility] February 22, 2022 [facility] February 21, 2022 [facility] February 20, 2022 [facility] February 19, 2022 [facility] February 18, 2022 [facility] February 17, 2022 [facility] February 16, 2022 [facility] February 15, 2022 [facility] February 14, 2022 [facility] February 13, 2022 [facility] February 12, 2022 [facility] February 11, 2022 [facility] February 10, 2022 [facility] February 09, 2022 [facility] February 08, 2022 [facility] February 07, 2022 [facility] February 06, 2022 [facility] February 05, 2022 [facility] February 04, 2022 [facility] February 03, 2022 [facility] February 02, 2022 [facility] February 01, 2022 [facility] January 31, 2022 [facility] January 30, 2022 [facility] January 29, 2022 [facility] January 28, 2022 [facility] January 27, 2022 [facility] January 26, 2022 [facility] January 25, 2022 [facility] January 24, 2022 [facility] January 23, 2022 [facility] January 22, 2022 [facility] January 21, 2022 [facility] BP Sitting (Pre-Dialysis) 119/81 mmHg BP Standing (Pre-Dialysis) 111/79 mmHg Sitting Heart Rate Pre-Dialysis 91 BPM Standing Heart Rate Pre-Dialysis 92 BPM Temperature Pre-Dialysis 97.2 degF Weight Pre-Dialysis 40.5 kg January 21, 2022 [facility] January 20, 2022 [facility] January 19, [facility]22 [facility], 2022 [facility] January 17, 2022 [facility] January 16, 2022 [facility] January 15, 2022 [facility] January 14, 2022 [facility] January 13, 2022 [facility] January 12, 2022 [facility] January 11, 2022 [facility] January 10, 2022 [facility] January 09, 2022 [facility] January 08, 2022 [facility] January 07, 2022 [facility] January 06[facility] 2022 [facility] January 05, 2022 [facility] January 04[facility] 2022 [facility] January 03, 2022 [facility] January 02, 2022 [facility] January 01, 2022 [facility] December 31, 2021 [facility] BP Sitting (Pre-Dialysis) 119/89 mmHg BP Standing (Pre-Dialysis) 110/74 mmHg Sitting Heart Rate Pre-Dialysis 91 BPM Standing Heart Rate Pre-Dialysis 92 BPM Temperature Pre-Dialysis 97.5 degF Weight Pre-Dialysis 39.5 kg December 31, 2021 [facility] December 30, 2021 [facility] December 29, 2021 [facility] December 28, 2021 [facility] December 27, 2021 [facility] December 26, 2021 [facility] December 25, 2021 [facility] BP Sitting (Pre-Dialysis) 132/84 mmHg BP Standing (Pre-Dialysis) 121/74 mmHg Sitting Heart Rate Pre-Dialysis 99 BPM Standing Heart Rate Pre-Dialysis 84 BPM Temperature Pre-Dialysis 98.3 degF Weight Pre-Dialysis 39.4 kg December 25, 2021 [facility] December 24, 2021 [facility] December 23, 2021 [facility] December 22, 2021 [facility] December 21, 2021 [facility] December 20, 2021 [facility] December 19, 2021 [facility] December 18, 2021 [facility] December 17, 2021 [facility] December 16, 2021 [facility] December 15, 2021 [facility] December 14, 2021 [facility] December 13, 2021 [facility] December 12, 2021 [facility] December 11, 2021 [facility] December 10, 2021 [facility] December 09, 2021 [facility] December 08, 2021 [facility] December 07, 2021 [facility] December 06, 2021 [facility] December 05, 2021 [facility] December 04, 2021 [facility] December 03, 2021 [facility] BP Sitting (Pre-Dialysis) 110/78 mmHg BP Standing (Pre-Dialysis) 100/68 mmHg Sitting Heart Rate Pre-Dialysis 83 BPM Standing Heart Rate Pre-Dialysis 85 BPM Temperature Pre-Dialysis 97.7 degF Weight Pre-Dialysis 38.1 kg December 03, 2021 [facility] December 02, 2021 [facility] December 01, 2021 [facility] November 30, 2021 [facility] November 29, 2021 [facility] November 28, 2021 [facility] November 27, 2021 [facility] November 26, 2021 [facility] November 26, 2021 [facility] BP Sitting (Pre-Dialysis) 110/76 mmHg BP Standing (Pre-Dialysis) 106/77 mmHg Sitting Heart Rate Pre-Dialysis 82 BPM Standing Heart Rate Pre-Dialysis 80 BPM Temperature Pre-Dialysis 97 degF Weight Pre-Dialysis 38 kg November 25, 2021 [facility] November 24, 2021 [facility] November 23, 2021 [facility] November 22, 2021 [facility] November 21, 2021 [facility] November 20, 2021 [facility] November 19, 2021 [facility] November 18, 2021 [facility] November 17, 2021 [facility] November 16, 2021 [facility] November 15, 2021 [facility] November 14, 2021 [facility] November 13, 2021 [facility] November 12, 2021 [facility] November 11, 2021 [facility] November 10, 2021 [facility] November 09, 2021 [facility] November 08, 2021 [facility] November 07, 2021 [facility] November 06, 2021 [facility] November 05, 2021 [facility] November 04, 2021 [facility] November 03, 2021 [facility] November 02, 2021 [facility] November 01, 2021 [facility] October 31, 2021 [facility] October 30, 2021 [facility] October 29, 2021 [facility] October 28, 2021 [facility] BP Sitting (Pre-Dialysis) 90/67 mmHg BP Standing (Pre-Dialysis) 88/68 mmHg Sitting Heart Rate Pre-Dialysis 68 BPM Standing Heart Rate Pre-Dialysis 72 BPM Temperature Pre-Dialysis 97.2 degF Weight Pre-Dialysis 37.2 kg October 28, 2021 [facility] October 27, 2021 [facility] October 26, 2021 [facility] October 25, 2021 [facility] October 24, 2021 [facility] October 23, 2021 [facility] BP Sitting (Pre-Dialysis) 111/76 mmH g BP Standing (Pre-Dialysis) 110/77 mmHg Sitting Heart Rate Pre-Dialysis 76 BPM Standing Heart Rate Pre-Dialysis 77 BPM Temperature Pre-Dialysis 98.1 degF Weight Pre-Dialysis 37.5 kg October 23, 2021 [facility] October 22, 2021 [facility] October 21, 2021 [facility] October 20, 2021 [facility] October 19, 2021 [facility] 2021 [facility] October 17, 2021 [facility] October 16, 2021 [facility] October 15, 2021 [facility] October 14, 2021 [facility] October 13, 2021 [facility] October 12, 2021 [facility] October 11, 2021 [facility] October 10, 2021 [facility] October 09, 2021 [facility] October 08, 2021 [facility] October 07, 2021 [facility] BP Sitting (Pre-Dialysis) 100/62 mmHg BP Standing (Pre-Dialysis) 102/60 mmHg Sitting Heart Rate Pre-Dialysis 68 BPM Standing Heart Rate Pre-Dialysis 70 BPM Temperature Pre-Dialysis 98.1 degF Weight Pre-Dialysis 38.9 kg October 07, 2021 [facility] October 06, 2021 [facility] October 05, 2021 [facility] October 04, 2021 [facility] October 03, 2021 [facility] October 02, 2021 [facility] October 01, 2021 [facility] September 30, 2021 [facility] September 29, 2021 [facility] September 28, 2021 [facility] September 27, 2021 [facility] September 26, 2021 [facility] September 25, 2021 [facility] September 24, 2021 [facility] September 23, 2021 [facility] September 22, 2021 [facility] September 21, 2021 [facility] September 20, 2021 [facility] September 19, 2021 [facility] September 18, 2021 [facility] September 17, 2021 [facility] September 16, 2021 [facility] September 15, 2021 [facility] September 14, 2021 [facility] September 13, 2021 [facility] September 12, 2021 [facility] September 11, 2021 [facility] September 10, 2021 [facility] September 10, 2021 [facility] BP Sitting (Pre-Dialysis) 103/77 mmHg BP Standing (Pre-Dialysis) 99/78 mmHg Sitting Heart Rate Pre-Dialysis 94 BPM Standing Heart Rate Pre-Dialysis 101 BPM Temperature Pre-Dialysis 98.2 degF Weight Pre-Dialysis 37.2 kg September 09, 2021 [facility] September 08, 2021 [facility] September 07, 2021 [facility] September 06, 2021 [facility] September 05, 2021 [facility] September 04, 2021 [facility] September 03, 2021 [facility] September 02, 2021 [facility] September 01, 2021 [facility] August 31, 2021 [facility] August 30, 2021 [facility] August 29, 2021 [facility] August 28, 2021 [facility] August 27, 2021 [facility] August 26, 2021 [facility] August 25, 2021 [facility] D[facility]YSIS ORDER Dialysis Procedure Orders Type of Dialysis Procedure Order Order Date/Time Observations In-Center Hemodialysis Treatment July Target Weight 45 kg Dialysate Flow Rate 500 mL/min Blood Flow Rate 350 mL/min Treatment Time 180 min(total) Max UF Rate 13 mL/kg/hr Base Sodium Dialysate Base Sodium 138 mE q/L dialysate_temp 37 C BiCarb Dialysate BiCarbonate 25 mEq/L Access Concurrent No Arterial Access AV Fistula (Upper Ar m (Left)) Venous Access AV Fistula (Upper Ar m (Left)) Arterial Needle Display NIPRO, TULIP, 15 G x 1 , SHARP , TWIN Venous Needle NIPRO, TULIP, 15G x 1 , SHARP , TWIN Dialyzer [employer]ius Optiflux F 160NR 1025 [email or web address] Dialysate Bath Potassium Potassium 2 mEq /L Dialysate Bath Calcium Calcium 2.5 mEq/L Results Adequacy Description Draw Date Result/Unit Status Ref Range Result Comments BLOOD FLOW-QWB 2024-07-21 05:08:32 350 F TBW ([place]) 2024-07-21 05:08:32 26.11 Liters F HEIGHT IN INCHES 2024-07-21 05:08:32 62 Inches F WEIGHT - POST DAY 1 2024-07-21 05:08:32 46.1 kg F LENGTH OF DIALYSIS 2024-07-21 05:08:32 175 min F VM (KT/V MEAN VOL) 2024-07-21 05:08:32 25.2 F stdKt/V (DIAL) 2024-07-21 05:08:32 N/A F BSA CINDY 2024-07-21 05:08:32 1.41 sq m F TOTAL HOURS/WEEK DIALYSIS 2024-07-21 05:08:32 5 hrs F KT/V PRESCRIBED 2024-07-21 05:08:32 1.96 F nPCR 2024-07-21 05:08:32 0.51 G/KG/D F Std Renal KT/V 2024-07-21 05:08:32 N/A F Total Kt/V 2024-07-21 05:08:32 1.59 F eKt/V 2024-07-21 05:08:32 1.31 F stdKT/V Total 2024-07-21 05:08:32 N/A F URR% 2024-07-21 05:08:32 77 % F PATIENT AGE 2024-07-21 05:08:32 53 Years F VT (KT/V TX VOL) 2024-07-21 05:08:32 26.5 L F spKt/V 2024-07-21 05:08:32 1.59 F PRESCRIBED DAYS/WEEK 2024-07-21 05:08:32 2 Day/Wk F Dialyzer MITESH 2024-07-21 05:08:32 1025 Calc F DIALYZER FLOW-QD 2024-07-21 05:08:32 500 mL/min F Residual kt/v 2024-07-21 05:08:32 F CURRENT KRU 2024-07-21 05:08:32 F WEIGHT - PRE DAY 1 2024-07-21 05:08:32 46.5 kg F WEIGHT (KG) 2024-07-21 05:08:32 44.5 kg F AMPUTATE FACTOR 2024-07-21 05:08:32 0 F Urea nitrogen [Mass/volume] in Serum or Plasma --post dialysis 2024-07-21 05:05:22 7 mg/dL F 9.0-23.0 Urea nitrogen [Mass/volume] in Serum or Plasma 2024-07-21 04:30:15 31 mg/dL F 9.0-23.0 PATIENT AGE 2024-06-14 20:51:58 53 Years F Dialyzer MITESH 2024-06-14 20:51:58 1025 Calc F VM (KT/V MEAN VOL) 2024-06-14 20:51:58 24.8 F DIALYZER FLOW-QD 2024-06-14 20:51:58 501 mL/min F HEIGHT IN INCHES 2024-06-14 20:51:58 62 Inches F nPCR 2024-06-14 20:51:58 0.54 G/KG/D F WEIGHT (KG) 2024-06-14 20:51:58 43.5 kg F Std Renal KT/V 2024-06-14 20:51:58 N/A F Residual kt/v 2024-06-14 20:51:58 F AMPUTATE FACTOR 2024-06-14 20:51:58 0 F spKt/V 2024-06-14 20:51:58 1.64 F PRESCRIBED DAYS/WEEK 2024-06-14 20:51:58 2 Day/Wk F VT (KT/V TX VOL) 2024-06-14 20:51:58 26.6 L F LENGTH OF DIALYSIS 2024-06-14 20:51:58 183 min F URR% 2024-06-14 20:51:58 78 % F stdKt/V (DIAL) 2024-06-14 20:51:58 N/A F WEIGHT - POST DAY 1 2024-06-14 20:51:58 44.7 kg F BSA CINDY 2024-06-14 20:51:58 1.4 sq m F TOTAL HOURS/WEEK DIALYSIS 2024-06-14 20:51:58 5 hrs F TBW ([place]) 2024-06-14 20:51:58 25.76 Liters F eKt/V 2024-06-14 20:51:58 1.36 F Total Kt/V 2024-06-14 20:51:58 1.64 F BLOOD FLOW-QWB 2024-06-14 20:51:58 341 F stdKT/V Total 2024-06-14 20:51:58 N/A F WEIGHT - PRE DAY 1 2024-06-14 20:51:58 45.5 kg F KT/V PRESCRIBED 2024-06-14 20:51:58 2.07 F CURRENT KRU 2024-06-14 20:51:58 F Urea nitrogen [Mass/volume] in Serum or Plasma --post dialysis 2024-06-14 20:36:20 9 mg/dL F 9.0-23.0 Urea nitrogen [Mass/volume] in Serum or Plasma 2024-06-14 15:03:28 41 mg/dL F 9.0-23.0 Creatinine [Mass/volume] in Serum or Plasma 2024-06-01 11:15:00 8.7 mg/dL F 0.52-1.04 Urea nitrogen [Mass/volume] in Serum or Plasma 2024-06-01 11:15:00 17 mg/dL F 7-17 Std Renal KT/V 2024-04-20 19:27:02 N/A F eKt/V 2024-04-20 19:27:02 1.55 F BSA CINDY 2024-04-20 19:27:02 1.38 sq m F stdKt/V (DIAL) 2024-04-20 19:27:02 N/A F WEIGHT - POST DAY 1 2024-04-20 19:27:02 42.1 kg F Total Kt/V 2024-04-20 19:27:02 1.89 F Residual kt/v 2024-04-20 19:27:02 F TBW ([place]) 2024-04-20 19:27:02 25.12 Liters F nPCR 2024-04-20 19:27:02 0.57 G/KG/D F Dialyzer MITESH 2024-04-20 19:27:02 1025 Calc F WEIGHT - PRE DAY 1 2024-04-20 19:27:02 43.6 kg F WEIGHT (KG) 2024-04-20 19:27:02 42.5 kg F AMPUTATE FACTOR 2024-04-20 19:27:02 0 F PRESCRIBED DAYS/WEEK 2024-04-20 19:27:02 2 Day/Wk F VT (KT/V TX VOL) 2024-04-20 19:27:02 22.1 L F stdKT/V Total 2024-04-20 19:27:02 N/A F PATIENT AGE 2024-04-20 19:27:02 53 Years F BLOOD FLOW-QWB 2024-04-20 19:27:02 350 F KT/V PRESCRIBED 2024-04-20 19:27:02 1.98 F DIALYZER FLOW-QD 2024-04-20 19:27:02 503 mL/min F TOTAL HOURS/WEEK DIALYSIS 2024-04-20 19:27:02 6 hrs F CURRENT KRU 2024-04-20 19:27:02 F VM (KT/V MEAN VOL) 2024-04-20 19:27:02 24.2 F URR% 2024-04-20 19:27:02 81 % F spKt/V 2024-04-20 19:27:02 1.89 F LENGTH OF DIALYSIS 2024-04-20 19:27:02 173 min F HEIGHT IN INCHES 2024-04-20 19:27:02 62 Inches F Urea nitrogen [Mass/volume] in Serum or Plasma 2024-04-20 19:25:21 32 mg/dL F 9.0-23.0 Urea nitrogen [Mass/volume] in Serum or Plasma --post dialysis 2024-04-20 17:59:35 6 mg/dL F 9.0-23.0 eKt/V 2024-03-23 14:39:28 1.5 F HEIGHT IN INCHES 2024-03-23 14:39:28 62 Inches F Total Kt/V 2024-03-23 14:39:28 1.82 F VM (KT/V MEAN VOL) 2024-03-23 14:39:28 24.9 F KT/V PRESCRIBED 2024-03-23 14:39:28 2.07 F BSA CINDY 2024-03-23 14:39:28 1.38 sq m F nPCR 2024-03-23 14:39:28 0.55 G/KG/D F CURRENT KRU 2024-03-23 14:39:28 F TOTAL HOURS/WEEK DIALYSIS 2024-03-23 14:39:28 6 hrs F stdKt/V (DIAL) 2024-03-23 14:39:28 N/A F WEIGHT - POST DAY 1 2024-03-23 14:39:28 41.8 kg F AMPUTATE FACTOR 2024-03-23 14:39:28 0 F Std Renal KT/V 2024-03-23 14:39:28 N/A F stdKT/V Total 2024-03-23 14:39:28 N/A F DIALYZER FLOW-QD 2024-03-23 14:39:28 501 mL/min F URR% 2024-03-23 14:39:28 82 % F LENGTH OF DIALYSIS 2024-03-23 14:39:28 180 min F VT (KT/V TX VOL) 2024-03-23 14:39:28 23.4 L F PRESCRIBED DAYS/WEEK 2024-03-23 14:39:28 2 Day/Wk F spKt/V 2024-03-23 14:39:28 1.82 F WEIGHT (KG) 2024-03-23 14:39:28 42 kg F BLOOD FLOW-QWB 2024-03-23 14:39:28 335 F WEIGHT - PRE DAY 1 2024-03-23 14:39:28 42 kg F PATIENT AGE 2024-03-23 14:39:28 53 Years F TBW ([place]) 2024-03-23 14:39:28 25.05 Liters F Dialyzer MITESH 2024-03-23 14:39:28 1025 Calc F Residual kt/v 2024-03-23 14:39:28 F Urea nitrogen [Mass/volume] in Serum or Plasma 2024-03-23 14:37:25 33 mg/dL F 9.0-23.0 Urea nitrogen [Mass/volume] in Serum or Plasma --post dialysis 2024-03-23 14:15:24 6 mg/dL F 9.0-23.0 VT (KT/V TX VOL) 2023-12-24 08:27:07 24.8 L F PATIENT AGE 2023-12-24 08:27:07 53 Years F VM (KT/V MEAN VOL) 2023-12-24 08:27:07 24.9 F URR% 2023-12-24 08:27:07 78 % F Total Kt/V 2023-12-24 08:27:07 1.7 F AMPUTATE FACTOR 2023-12-24 08:27:07 0 F DIALYZER FLOW-QD 2023-12-24 08:27:07 508 mL/min F stdKT/V Total 2023-12-24 08:27:07 N/A F HEIGHT IN INCHES 2023-12-24 08:27:07 62 Inches F CURRENT KRU 2023-12-24 08:27:07 F Residual kt/v 2023-12-24 08:27:07 F BSA CINDY 2023-12-24 08:27:07 1.41 sq m F TBW (Fab) 2023-12-24 08:27:07 25.93 Liters F spKt/V 2023-12-24 08:27:07 1.7 F Dialyzer MITESH 2023-12-24 08:27:07 1025 Calc F WEIGHT (KG) 2023-12-24 08:27:07 44 kg F Std Renal KT/V 2023-12-24 08:27:07 N/A F LENGTH OF DIALYSIS 2023-12-24 08:27:07 174 min F nPCR 2023-12-24 08:27:07 0.54 G/KG/D F WEIGHT - PRE DAY 1 2023-12-24 08:27:07 46.8 kg F BLOOD FLOW-QWB 2023-12-24 08:27:07 350 F eKt/V 2023-12-24 08:27:07 1.4 F KT/V PRESCRIBED 2023-12-24 08:27:07 1.96 F TOTAL HOURS/WEEK DIALYSIS 2023-12-24 08:27:07 5 hrs F PRESCRIBED DAYS/WEEK 2023-12-24 08:27:07 2 Day/Wk F stdKt/V (DIAL) 2023-12-24 08:27:07 N/A F WEIGHT - POST DAY 1 2023-12-24 08:27:07 45.4 kg F Urea nitrogen [Mass/volume] in Serum or Plasma --post dialysis 2023-12-24 07:56:37 7 mg/dL F 9.0-23.0 Urea nitrogen [Mass/volume] in Serum or Plasma 2023-12-23 23:32:26 32 mg/dL F 9.0-23.0 TBW (Fab) 2023-11-26 14:07:20 25.46 Liters F KT/V PRESCRIBED 2023-11-26 14:07:20 2.02 F stdKT/V Total 2023-11-26 14:07:20 N/A F BLOOD FLOW-QWB 2023-11-26 14:07:20 350 F eKt/V 2023-11-26 14:07:20 1.3 F PRESCRIBED DAYS/WEEK 2023-11-26 14:07:20 2 Day/Wk F VM (KT/V MEAN VOL) 2023-11-26 14:07:20 24.9 F Total Kt/V 2023-11-26 14:07:20 1.58 F VT (KT/V TX VOL) 2023-11-26 14:07:20 27.4 L F stdKt/V (DIAL) 2023-11-26 14:07:20 N/A F Std Renal KT/V 2023-11-26 14:07:20 N/A F spKt/V 2023-11-26 14:07:20 1.58 F CURRENT KRU 2023-11-26 14:07:20 F nPCR 2023-11-26 14:07:20 0.59 G/KG/D F AMPUTATE FACTOR 2023-11-26 14:07:20 0 F TOTAL HOURS/WEEK DIALYSIS 2023-11-26 14:07:20 5 hrs F Residual kt/v 2023-11-26 14:07:20 F WEIGHT - POST DAY 1 2023-11-26 14:07:19 43.5 kg F BSA CINDY 2023-11-26 14:07:19 1.4 sq m F PATIENT AGE 2023-11-26 14:07:19 53 Years F HEIGHT IN INCHES 2023-11-26 14:07:19 62 Inches F Dialyzer MITESH 2023-11-26 14:07:19 1025 Calc F WEIGHT (KG) 2023-11-26 14:07:19 43.5 kg F LENGTH OF DIALYSIS 2023-11-26 14:07:19 178 min F WEIGHT - PRE DAY 1 2023-11-26 14:07:19 44.5 kg F DIALYZER FLOW-QD 2023-11-26 14:07:19 514 mL/min F URR% 2023-11-26 14:07:17 76 % F Urea nitrogen [Mass/volume] in Serum or Plasma --post dialysis 2023-11-26 14:05:24 9 mg/dL F 9.0-23.0 Urea nitrogen [Mass/volume] in Serum or Plasma 2023-11-26 04:47:31 38 mg/dL F 9.0-23.0 WEIGHT (KG) 2023-10-21 18:54:49 43.5 kg F TBW ([place]) 2023-10-21 18:54:49 25.14 Liters F DIALYZER FLOW-QD 2023-10-21 18:54:49 500 mL/min F TOTAL HOURS/WEEK DIALYSIS 2023-10-21 18:54:49 5 hrs F HEIGHT IN INCHES 2023-10-21 18:54:49 62 Inches F Residual kt/v 2023-10-21 18:54:49 F URR% 2023-10-21 18:54:49 78 % F BSA CINDY 2023-10-21 18:54:49 1.4 sq m F WEIGHT - POST DAY 1 2023-10-21 18:54:49 42.2 kg F AMPUTATE FACTOR 2023-10-21 18:54:49 0 F PRESCRIBED DAYS/WEEK 2023-10-21 18:54:49 2 Day/Wk F stdKT/V Total 2023-10-21 18:54:49 N/A F KT/V PRESCRIBED 2023-10-21 18:54:49 2.04 F VT (KT/V TX VOL) 2023-10-21 18:54:49 25.4 L F LENGTH OF DIALYSIS 2023-10-21 18:54:49 180 min F nPCR 2023-10-21 18:54:49 0.53 G/KG/D F spKt/V 2023-10-21 18:54:49 1.66 F Std Renal KT/V 2023-10-21 18:54:49 N/A F VM (KT/V MEAN VOL) 2023-10-21 18:54:49 24.1 F WEIGHT - PRE DAY 1 2023-10-21 18:54:49 43 kg F CURRENT KRU 2023-10-21 18:54:49 F Total Kt/V 2023-10-21 18:54:49 1.66 F PATIENT AGE 2023-10-21 18:54:49 53 Years F stdKt/V (DIAL) 2023-10-21 18:54:49 N/A F eKt/V 2023-10-21 18:54:49 1.37 F Dialyzer MITESH 2023-10-21 18:54:49 1025 Calc F BLOOD FLOW-QWB 2023-10-21 18:54:49 329 F Urea nitrogen [Mass/volume] in Serum or Plasma 2023-10-21 18:53:15 32 mg/dL F 9.0-23.0 Urea nitrogen [Mass/volume] in Serum or Plasma --post dialysis 2023-10-21 16:04:17 7 mg/dL F 9.0-23.0 Std Renal KT/V 2023-09-23 20:28:50 N/A F BLOOD FLOW-QWB 2023-09-23 20:28:50 350 F VT (KT/V TX VOL) 2023-09-23 20:28:50 21 L F WEIGHT - PRE DAY 1 2023-09-23 20:28:50 43.1 kg F LENGTH OF DIALYSIS 2023-09-23 20:28:50 177 min F WEIGHT (KG) 2023-09-23 20:28:50 43.5 kg F WEIGHT - POST DAY 1 2023-09-23 20:28:50 43 kg F DIALYZER FLOW-QD 2023-09-23 20:28:50 500 mL/min F Dialyzer MITESH 2023-09-23 20:28:50 1025 Calc F VM (KT/V MEAN VOL) 2023-09-23 20:28:50 23.6 F Residual kt/v 2023-09-23 20:28:50 F eKt/V 2023-09-23 20:28:50 1.66 F BSA CINDY 2023-09-23 20:28:50 1.4 sq m F HEIGHT IN INCHES 2023-09-23 20:28:50 62 Inches F stdKt/V (DIAL) 2023-09-23 20:28:50 N/A F stdKT/V Total 2023-09-23 20:28:50 N/A F TOTAL HOURS/WEEK DIALYSIS 2023-09-23 20:28:50 5 hrs F TBW (Rebolledo) 2023-09-23 20:28:50 25.34 Liters F nPCR 2023-09-23 20:28:50 0.74 G/KG/D F PRESCRIBED DAYS/WEEK 2023-09-23 20:28:50 2 Day/Wk F KT/V PRESCRIBED 2023-09-23 20:28:50 2.01 F Total Kt/V 2023-09-23 20:28:50 2.03 F CURRENT KRU 2023-09-23 20:28:50 F PATIENT AGE 2023-09-23 20:28:50 52 Years F spKt/V 2023-09-23 20:28:50 2.03 F AMPUTATE FACTOR 2023-09-23 20:28:50 0 F URR% 2023-09-23 20:28:49 85 % F Urea nitrogen [Mass/volume] in Serum or Plasma 2023-09-23 20:27:28 47 mg/dL F 9.0-23.0 Urea nitrogen [Mass/volume] in Serum or Plasma --post dialysis 2023-09-23 14:26:37 7 mg/dL F 9.0-23.0 Dialyzer MITESH 2023-08-20 06:16:54 1025 Calc F Residual kt/v 2023-08-20 06:16:54 F KT/V PRESCRIBED 2023-08-20 06:16:54 2.02 F stdKT/V Total 2023-08-20 06:16:54 N/A F DIALYZER FLOW-QD 2023-08-20 06:16:54 518 mL/min F HEIGHT IN INCHES 2023-08-20 06:16:54 62 Inches F WEIGHT (KG) 2023-08-20 06:16:54 45 kg F CURRENT KRU 2023-08-20 06:16:54 F stdKt/V (DIAL) 2023-08-20 06:16:54 N/A F TOTAL HOURS/WEEK DIALYSIS 2023-08-20 06:16:54 6 hrs F BLOOD FLOW-QWB 2023-08-20 06:16:54 329 F Total Kt/V 2023-08-20 06:16:54 1.74 F PRESCRIBED DAYS/WEEK 2023-08-20 06:16:54 2 Day/Wk F VM (KT/V MEAN VOL) 2023-08-20 06:16:54 24.4 F WEIGHT - POST DAY 1 2023-08-20 06:16:54 45.2 kg F WEIGHT - PRE DAY 1 2023-08-20 06:16:54 45.7 kg F Std Renal KT/V 2023-08-20 06:16:54 N/A F LENGTH OF DIALYSIS 2023-08-20 06:16:54 181 min F VT (KT/V TX VOL) 2023-08-20 06:16:54 24.6 L F BSA CINDY 2023-08-20 06:16:54 1.42 sq m F PATIENT AGE 2023-08-20 06:16:54 52 Years F eKt/V 2023-08-20 06:16:54 1.43 F TBW (Fab) 2023-08-20 06:16:54 25.88 Liters F AMPUTATE FACTOR 2023-08-20 06:16:54 0 F nPCR 2023-08-20 06:16:54 0.63 G/KG/D F spKt/V 2023-08-20 06:16:54 1.74 F URR% 2023-08-20 06:16:53 80 % F Urea nitrogen [Mass/volume] in Serum or Plasma --post dialysis 2023-08-20 06:15:29 8 mg/dL F 9.0-23.0 Urea nitrogen [Mass/volume] in Serum or Plasma 2023-08-20 06:08:31 40 mg/dL F 9.0-23.0 VM (KT/V MEAN VOL) 2023-07-23 01:23:15 24.4 F TBW (Fab) 2023-07-23 01:23:15 25.76 Liters F DIALYZER FLOW-QD 2023-07-23 01:23:15 491 mL/min F LENGTH OF DIALYSIS 2023-07-23 01:23:15 177 min F BLOOD FLOW-QWB 2023-07-23 01:23:15 350 F URR% 2023-07-23 01:23:15 81 % F TOTAL HOURS/WEEK DIALYSIS 2023-07-23 01:23:15 5 hrs F eKt/V 2023-07-23 01:23:15 1.48 F nPCR 2023-07-23 01:23:15 0.66 G/KG/D F spKt/V 2023-07-23 01:23:15 1.8 F Dialyzer MITESH 2023-07-23 01:23:15 1025 Calc F PRESCRIBED DAYS/WEEK 2023-07-23 01:23:15 2 Day/Wk F Residual kt/v 2023-07-23 01:23:15 F HEIGHT IN INCHES 2023-07-23 01:23:15 62 Inches F PATIENT AGE 2023-07-23 01:23:15 52 Years F CURRENT KRU 2023-07-23 01:23:15 F WEIGHT - POST DAY 1 2023-07-23 01:23:15 44.7 kg F stdKt/V (DIAL) 2023-07-23 01:23:15 N/A F AMPUTATE FACTOR 2023-07-23 01:23:15 0 F Total Kt/V 2023-07-23 01:23:15 1.8 F stdKT/V Total 2023-07-23 01:23:15 N/A F WEIGHT - PRE DAY 1 2023-07-23 01:23:15 45.3 kg F KT/V PRESCRIBED 2023-07-23 01:23:15 1.98 F WEIGHT (KG) 2023-07-23 01:23:15 45 kg F BSA CINDY 2023-07-23 01:23:15 1.42 sq m F Std Renal KT/V 2023-07-23 01:23:15 N/A F VT (KT/V TX VOL) 2023-07-23 01:23:15 23.6 L F Urea nitrogen [Mass/volume] in Serum or Plasma 2023-07-23 01:21:39 42 mg/dL F 9.0-23.0 Urea nitrogen [Mass/volume] in Serum or Plasma --post dialysis 2023-07-22 22:21:33 8 mg/dL F 9.0-23.0 BSA CINDY 2023-06-24 17:57:15 1.42 sq m F AMPUTATE FACTOR 2023-06-24 17:57:15 0 F VT (KT/V TX VOL) 2023-06-24 17:57:15 24.5 L F PATIENT AGE 2023-06-24 17:57:15 52 Years F TOTAL HOURS/WEEK DIALYSIS 2023-06-24 17:57:15 5 hrs F nPCR 2023-06-24 17:57:15 0.67 G/KG/D F Total Kt/V 2023-06-24 17:57:15 1.74 F WEIGHT (KG) 2023-06-24 17:57:15 45 kg F URR% 2023-06-24 17:57:15 79 % F eKt/V 2023-06-24 17:57:15 1.44 F WEIGHT - POST DAY 1 2023-06-24 17:57:15 44.6 kg F stdKT/V Total 2023-06-24 17:57:15 N/A F HEIGHT IN INCHES 2023-06-24 17:57:15 62 Inches F Dialyzer MITESH 2023-06-24 17:57:15 1025 Calc F CURRENT KRU 2023-06-24 17:57:15 F stdKt/V (DIAL) 2023-06-24 17:57:15 N/A F Std Renal KT/V 2023-06-24 17:57:15 N/A F WEIGHT - PRE DAY 1 2023-06-24 17:57:15 45.8 kg F VM (KT/V MEAN VOL) 2023-06-24 17:57:15 24.6 F PRESCRIBED DAYS/WEEK 2023-06-24 17:57:15 2 Day/Wk F TBW (Rebolledo) 2023-06-24 17:57:15 25.74 Liters F LENGTH OF DIALYSIS 2023-06-24 17:57:15 182 min F KT/V PRESCRIBED 2023-06-24 17:57:15 2.03 F Residual kt/v 2023-06-24 17:57:15 F BLOOD FLOW-QWB 2023-06-24 17:57:15 329 F DIALYZER FLOW-QD 2023-06-24 17:57:15 495 mL/min F spKt/V 2023-06-24 17:57:15 1.74 F Urea nitrogen [Mass/volume] in Serum or Plasma --post dialysis 2023-06-24 17:55:34 9 mg/dL F 9.0-23.0 Urea nitrogen [Mass/volume] in Serum or Plasma 2023-06-24 16:30:40 43 mg/dL F 9.0-23.0 WEIGHT (KG) 2023-05-20 23:31:54 43 kg F HEIGHT IN INCHES 2023-05-20 23:31:54 62 Inches F eKt/V 2023-05-20 23:31:54 1.44 F KT/V PRESCRIBED 2023-05-20 23:31:54 1.74 F stdKt/V (DIAL) 2023-05-20 23:31:54 N/A F VT (KT/V TX VOL) 2023-05-20 23:31:54 21.8 L F TOTAL HOURS/WEEK DIALYSIS 2023-05-20 23:31:54 5 hrs F BLOOD FLOW-QWB 2023-05-20 23:31:54 400 F Total Kt/V 2023-05-20 23:31:54 1.79 F VM (KT/V MEAN VOL) 2023-05-20 23:31:54 24.6 F WEIGHT - POST DAY 1 2023-05-20 23:31:54 42.7 kg F TBW (Rebolledo) 2023-05-20 23:31:54 25.27 Liters F Dialyzer MITESH 2023-05-20 23:31:54 1025 Calc F LENGTH OF DIALYSIS 2023-05-20 23:31:54 153 min F Std Renal KT/V 2023-05-20 23:31:54 N/A F nPCR 2023-05-20 23:31:54 0.7 G/KG/D F BSA CINDY 2023-05-20 23:31:54 1.39 sq m F AMPUTATE FACTOR 2023-05-20 23:31:54 0 F Residual kt/v 2023-05-20 23:31:54 F CURRENT KRU 2023-05-20 23:31:54 F spKt/V 2023-05-20 23:31:54 1.79 F stdKT/V Total 2023-05-20 23:31:54 N/A F PRESCRIBED DAYS/WEEK 2023-05-20 23:31:54 2 Day/Wk F PATIENT AGE 2023-05-20 23:31:54 52 Years F DIALYZER FLOW-QD 2023-05-20 23:31:54 501 mL/min F WEIGHT - PRE DAY 1 2023-05-20 23:31:54 44 kg F URR% 2023-05-20 23:31:54 80 % F Urea nitrogen [Mass/volume] in Serum or Plasma --post dialysis 2023-05-20 23:30:37 9 mg/dL F 9.0-23.0 Urea nitrogen [Mass/volume] in Serum or Plasma 2023-05-20 15:30:40 45 mg/dL F 9.0-23.0 VM (KT/V MEAN VOL) 2023-05-06 16:49:26 25.9 F PATIENT AGE 2023-05-06 16:49:26 52 Years F HEIGHT IN INCHES 2023-05-06 16:49:26 62 Inches F DIALYZER FLOW-QD 2023-05-06 16:49:26 508 mL/min F TOTAL HOURS/WEEK DIALYSIS 2023-05-06 16:49:26 6 hrs F BSA CINDY 2023-05-06 16:49:26 1.39 sq m F CURRENT KRU 2023-05-06 16:49:26 F VT (KT/V TX VOL) 2023-05-06 16:49:26 24.9 L F spKt/V 2023-05-06 16:49:26 1.75 F PRESCRIBED DAYS/WEEK 2023-05-06 16:49:26 2 Day/Wk F URR% 2023-05-06 16:49:26 80 % F KT/V PRESCRIBED 2023-05-06 16:49:26 2.05 F Total Kt/V 2023-05-06 16:49:26 1.75 F Dialyzer MITESH 2023-05-06 16:49:26 1025 Calc F AMPUTATE FACTOR 2023-05-06 16:49:26 0 F nPCR 2023-05-06 16:49:26 0.74 G/KG/D F stdKt/V (DIAL) 2023-05-06 16:49:26 N/A F WEIGHT (KG) 2023-05-06 16:49:26 43 kg F BLOOD FLOW-QWB 2023-05-06 16:49:26 350 F Residual kt/v 2023-05-06 16:49:26 F WEIGHT - PRE DAY 1 2023-05-06 16:49:26 43.4 kg F eKt/V 2023-05-06 16:49:26 1.44 F TBW (Rebolledo) 2023-05-06 16:49:26 25.27 Liters F stdKT/V Total 2023-05-06 16:49:26 N/A F WEIGHT - POST DAY 1 2023-05-06 16:49:26 42.7 kg F Std Renal KT/V 2023-05-06 16:49:26 N/A F LENGTH OF DIALYSIS 2023-05-06 16:49:26 180 min F eKt/V 2023-05-05 09:34:55 1.49 F spKt/V 2023-05-05 09:34:55 1.81 F stdKt/V (DIAL) 2023-05-05 09:34:55 N/A F VT (KT/V TX VOL) 2023-05-05 09:34:55 24.1 L F nPCR 2023-05-05 09:34:55 0.79 G/KG/D F stdKT/V Total 2023-05-05 09:34:55 N/A F PATIENT AGE 2023-05-05 09:34:55 52 Years F LENGTH OF DIALYSIS 2023-05-05 09:34:55 183 min F BSA CINDY 2023-05-05 09:34:55 1.39 sq m F WEIGHT - POST DAY 1 2023-05-05 09:34:55 44.1 kg F KT/V PRESCRIBED 2023-05-05 09:34:55 2.08 F Residual kt/v 2023-05-05 09:34:55 F BLOOD FLOW-QWB 2023-05-05 09:34:55 338 F Std Renal KT/V 2023-05-05 09:34:55 N/A F VM (KT/V MEAN VOL) 2023-05-05 09:34:55 25.5 F TOTAL HOURS/WEEK DIALYSIS 2023-05-05 09:34:55 6 hrs F Dialyzer MITESH 2023-05-05 09:34:55 1025 Calc F DIALYZER FLOW-QD 2023-05-05 09:34:55 509 mL/min F TBW (Rebolledo) 2023-05-05 09:34:55 25.61 Liters F PRESCRIBED DAYS/WEEK 2023-05-05 09:34:55 2 Day/Wk F WEIGHT - PRE DAY 1 2023-05-05 09:34:55 44.9 kg F URR% 2023-05-05 09:34:55 81 % F HEIGHT IN INCHES 2023-05-05 09:34:55 62 Inches F AMPUTATE FACTOR 2023-05-05 09:34:55 0 F WEIGHT (KG) 2023-05-05 09:34:55 43 kg F Total Kt/V 2023-05-05 09:34:55 1.81 F CURRENT KRU 2023-05-05 09:34:55 F Urea nitrogen [Mass/volume] in Serum or Plasma --post dialysis 2023-04-23 04:16:34 10 mg/dL F 9.0-23.0 Urea nitrogen [Mass/volume] in Serum or Plasma 2023-04-23 03:21:38 52 mg/dL F 9.0-23.0 Urea nitrogen [Mass/volume] in Serum or Plasma 2023-03-25 21:36:46 50 mg/dL F 9.0-23.0 Urea nitrogen [Mass/volume] in Serum or Plasma --post dialysis 2023-03-25 20:37:20 10 mg/dL F 9.0-23.0 URR% 2023-02-20 06:24:38 77 % F stdKt/V (DIAL) 2023-02-20 06:24:38 N/A F BLOOD FLOW-QWB 2023-02-20 06:24:38 350 F Std Renal KT/V 2023-02-20 06:24:38 N/A F LENGTH OF DIALYSIS 2023-02-20 06:24:38 172 min F PATIENT AGE 2023-02-20 06:24:38 52 Years F WEIGHT - POST DAY 1 2023-02-20 06:24:38 39.7 kg F HEIGHT IN INCHES 2023-02-20 06:24:38 62 Inches F Dialyzer MITESH 2023-02-20 06:24:38 1025 Calc F spKt/V 2023-02-20 06:24:38 1.69 F nPCR 2023-02-20 06:24:38 0.73 G/KG/D F PRESCRIBED DAYS/WEEK 2023-02-20 06:24:38 2 Day/Wk F CURRENT KRU 2023-02-20 06:24:38 F VT (KT/V TX VOL) 2023-02-20 06:24:38 24.7 L F WEIGHT - PRE DAY 1 2023-02-20 06:24:38 41.7 kg F BSA CINDY 2023-02-20 06:24:38 1.34 sq m F WEIGHT (KG) 2023-02-20 06:24:38 39.5 kg F VM (KT/V MEAN VOL) 2023-02-20 06:24:38 26.2 F KT/V PRESCRIBED 2023-02-20 06:24:38 2.03 F Total Kt/V 2023-02-20 06:24:38 1.69 F Residual kt/v 2023-02-20 06:24:38 F eKt/V 2023-02-20 06:24:38 1.39 F TOTAL HOURS/WEEK DIALYSIS 2023-02-20 06:24:38 5 hrs F AMPUTATE FACTOR 2023-02-20 06:24:38 0 F TBW (Rebolledo) 2023-02-20 06:24:38 24.53 Liters F stdKT/V Total 2023-02-20 06:24:38 N/A F DIALYZER FLOW-QD 2023-02-20 06:24:38 509 mL/min F Urea nitrogen [Mass/volume] in Serum or Plasma 2023-02-20 06:23:08 48 mg/dL F 9.0-23.0 Urea nitrogen [Mass/volume] in Serum or Plasma --post dialysis 2023-02-19 19:06:44 11 mg/dL F 9.0-23.0 VM (KT/V MEAN VOL) 2023-01-21 20:47:08 26.7 F Dialyzer MITESH 2023-01-21 20:47:08 1025 Calc F WEIGHT - PRE DAY 1 2023-01-21 20:47:08 43.6 kg F TOTAL HOURS/WEEK DIALYSIS 2023-01-21 20:47:08 5 hrs F WEIGHT (KG) 2023-01-21 20:47:08 43.5 kg F spKt/V 2023-01-21 20:47:08 1.61 F Total Kt/V 2023-01-21 20:47:08 1.61 F DIALYZER FLOW-QD 2023-01-21 20:47:08 497 mL/min F TBW (Rebolledo) 2023-01-21 20:47:08 25.39 Liters F BLOOD FLOW-QWB 2023-01-21 20:47:08 350 F CURRENT KRU 2023-01-21 20:47:08 F BSA CINDY 2023-01-21 20:47:08 1.4 sq m F Residual kt/v 2023-01-21 20:47:08 F Std Renal KT/V 2023-01-21 20:47:08 N/A F PRESCRIBED DAYS/WEEK 2023-01-21 20:47:08 2 Day/Wk F stdKT/V Total 2023-01-21 20:47:08 N/A F PATIENT AGE 2023-01-21 20:47:08 52 Years F WEIGHT - POST DAY 1 2023-01-21 20:47:08 43.2 kg F AMPUTATE FACTOR 2023-01-21 20:47:08 0 F URR% 2023-01-21 20:47:08 78 % F LENGTH OF DIALYSIS 2023-01-21 20:47:08 172 min F KT/V PRESCRIBED 2023-01-21 20:47:08 1.95 F nPCR 2023-01-21 20:47:08 0.86 G/KG/D F VT (KT/V TX VOL) 2023-01-21 20:47:08 25.7 L F HEIGHT IN INCHES 2023-01-21 20:47:08 62 Inches F eKt/V 2023-01-21 20:47:08 1.32 F stdKt/V (DIAL) 2023-01-21 20:47:08 N/A F Urea nitrogen [Mass/volume] in Serum or Plasma --post dialysis 2023-01-21 20:45:42 14 mg/dL F 9.0-23.0 Urea nitrogen [Mass/volume] in Serum or Plasma 2023-01-21 19:06:39 63 mg/dL F 9.0-23.0 VM (KT/V MEAN VOL) 2022-12-24 22:08:44 27 F Std Renal KT/V 2022-12-24 22:08:44 N/A F eKt/V 2022-12-24 22:08:44 1.37 F WEIGHT - POST DAY 1 2022-12-24 22:08:44 45.3 kg F DIALYZER FLOW-QD 2022-12-24 22:08:44 510 mL/min F Total Kt/V 2022-12-24 22:08:44 1.66 F KT/V PRESCRIBED 2022-12-24 22:08:44 2.04 F CURRENT KRU 2022-12-24 22:08:44 F LENGTH OF DIALYSIS 2022-12-24 22:08:44 185 min F HEIGHT IN INCHES 2022-12-24 22:08:44 62 Inches F Residual kt/v 2022-12-24 22:08:44 F TBW (Rebolledo) 2022-12-24 22:08:44 25.91 Liters F PATIENT AGE 2022-12-24 22:08:44 52 Years F BLOOD FLOW-QWB 2022-12-24 22:08:44 372 F spKt/V 2022-12-24 22:08:44 1.66 F Dialyzer MITESH 2022-12-24 22:08:44 1025 Calc F WEIGHT (KG) 2022-12-24 22:08:44 46.2 kg F URR% 2022-12-24 22:08:44 77 % F stdKt/V (DIAL) 2022-12-24 22:08:44 N/A F AMPUTATE FACTOR 2022-12-24 22:08:44 0 F BSA CINDY 2022-12-24 22:08:44 1.43 sq m F nPCR 2022-12-24 22:08:44 0.47 G/KG/D F PRESCRIBED DAYS/WEEK 2022-12-24 22:08:44 2 Day/Wk F WEIGHT - PRE DAY 1 2022-12-24 22:08:44 47 kg F VT (KT/V TX VOL) 2022-12-24 22:08:44 27.9 L F stdKT/V Total 2022-12-24 22:08:44 N/A F TOTAL HOURS/WEEK DIALYSIS 2022-12-24 22:08:44 6 hrs F Urea nitrogen [Mass/volume] in Serum or Plasma --post dialysis 2022-12-24 22:07:30 6 mg/dL F 9.0-23.0 Urea nitrogen [Mass/volume] in Serum or Plasma 2022-12-24 19:18:34 26 mg/dL F 9.0-23.0 WEIGHT (KG) 2022-11-19 15:29:35 43 kg F URR% 2022-11-19 15:29:35 78 % F TBW (Rebolledo) 2022-11-19 15:29:35 25.91 Liters F WEIGHT - PRE DAY 1 2022-11-19 15:29:35 45.3 kg F Residual kt/v 2022-11-19 15:29:35 F PATIENT AGE 2022-11-19 15:29:35 52 Years F AMPUTATE FACTOR 2022-11-19 15:29:35 0 F spKt/V 2022-11-19 15:29:35 1.59 F VT (KT/V TX VOL) 2022-11-19 15:29:35 27.6 L F LENGTH OF DIALYSIS 2022-11-19 15:29:35 190 min F Std Renal KT/V 2022-11-19 15:29:35 N/A F nPCR 2022-11-19 15:29:35 0.56 G/KG/D F Total Kt/V 2022-11-19 15:29:35 1.59 F eKt/V 2022-11-19 15:29:35 1.32 F PRESCRIBED DAYS/WEEK 2022-11-19 15:29:35 2 Day/Wk F stdKT/V Total 2022-11-19 15:29:35 N/A F CURRENT KRU 2022-11-19 15:29:35 F stdKt/V (DIAL) 2022-11-19 15:29:35 N/A F VM (KT/V MEAN VOL) 2022-11-19 15:29:35 26.7 F KT/V PRESCRIBED 2022-11-19 15:29:35 2.16 F BLOOD FLOW-QWB 2022-11-19 15:29:35 320 F DIALYZER FLOW-QD 2022-11-19 15:29:35 501 mL/min F BSA CINDY 2022-11-19 15:29:35 1.39 sq m F HEIGHT IN INCHES 2022-11-19 15:29:35 62 Inches F TOTAL HOURS/WEEK DIALYSIS 2022-11-19 15:29:35 6 hrs F WEIGHT - POST DAY 1 2022-11-19 15:29:35 45.3 kg F Dialyzer MITESH 2022-11-19 15:29:35 1025 Calc F Urea nitrogen [Mass/volume] in Serum or Plasma 2022-11-19 15:28:30 36 mg/dL F 9.0-23.0 Urea nitrogen [Mass/volume] in Serum or Plasma --post dialysis 2022-11-19 15:11:04 8 mg/dL F 9.0-23.0 URR% 2022-10-23 05:00:12 78 % F 65.0-100.0 Dialyzer MITESH 2022-10-23 04:58:04 1025 Calc F stdKt/V (DIAL) 2022-10-23 04:58:04 N/A F DIALYZER FLOW-QD 2022-10-23 04:58:04 515 mL/min F LENGTH OF DIALYSIS 2022-10-23 04:58:04 181 min F BSA CINDY 2022-10-23 04:58:04 1.4 sq m F AMPUTATE FACTOR 2022-10-23 04:58:04 0 F PRESCRIBED DAYS/WEEK 2022-10-23 04:58:04 2 Day/Wk F HEIGHT IN INCHES 2022-10-23 04:58:04 62 Inches F TBW (Rebolledo) 2022-10-23 04:58:04 24.75 Liters F PATIENT AGE 2022-10-23 04:58:04 52 Years F eKt/V 2022-10-23 04:58:04 1.32 F spKt/V 2022-10-23 04:58:04 1.6 F WEIGHT - PRE DAY 1 2022-10-23 04:58:04 40.6 kg F Total Kt/V 2022-10-23 04:58:04 1.6 F BLOOD FLOW-QWB 2022-10-23 04:58:04 286 F KT/V PRESCRIBED 2022-10-23 04:58:04 1.38 F WEIGHT - POST DAY 1 2022-10-23 04:58:04 40.6 kg F Residual kt/v 2022-10-23 04:58:04 F nPCR 2022-10-23 04:58:04 0.61 G/KG/D F VM (KT/V MEAN VOL) 2022-10-23 04:58:04 26.4 F TOTAL HOURS/WEEK DIALYSIS 2022-10-23 04:58:04 6 hrs F CURRENT KRU 2022-10-23 04:58:04 F WEIGHT (KG) 2022-10-23 04:58:04 43.5 kg F stdKT/V Total 2022-10-23 04:58:04 N/A F Std Renal KT/V 2022-10-23 04:58:04 N/A F VT (KT/V TX VOL) 2022-10-23 04:58:04 24.8 L F Urea nitrogen [Mass/volume] in Serum or Plasma 2022-10-23 04:55:43 41 mg/dL F 9.0-23.0 Urea nitrogen [Mass/volume] in Serum or Plasma --post dialysis 2022-10-23 03:18:37 9 mg/dL F 9.0-23.0 Urea nitrogen [Mass/volume] in Serum or Plasma --post dialysis 2022-08-25 07:14:55 F Canceled - Specimen not received 5 days past draw date URR% 2022-08-21 17:19:54 F Unable to calculate: Post BUN lab result is unknown spKt/V 2022-08-21 17:19:54 F Unable to calculate: Post BUN lab result is unknown VM (KT/V MEAN VOL) 2022-08-21 17:19:54 F Unable to calculate: Post BUN lab result is unknown Std Renal KT/V 2022-08-21 17:19:54 F Unable to calculate: Post BUN lab result is unknown Total Kt/V 2022-08-21 17:19:54 F Unable to calculate: Post BUN lab result is unknown stdKt/V (DIAL) 2022-08-21 17:19:54 F Unable to calculate: Post BUN lab result is unknown HEIGHT IN INCHES 2022-08-21 17:19:54 62 Inches F VT (KT/V TX VOL) 2022-08-21 17:19:54 F Unable to calculate: Post BUN lab result is unknown KT/V PRESCRIBED 2022-08-21 17:19:54 F Unable to calculate: Post BUN lab result is unknown stdKT/V Total 2022-08-21 17:19:54 N/A F CURRENT KRU 2022-08-21 17:19:54 F Unable to calculate: Post BUN lab result is unknown Residual kt/v 2022-08-21 17:19:54 F Unable to calculate: Post BUN lab result is unknown LENGTH OF DIALYSIS 2022-08-21 17:19:54 94 min F nPCR 2022-08-21 17:19:54 F Unable to calculate: Post BUN lab result is unknown WEIGHT - PRE DAY 1 2022-08-21 17:19:54 43.1 kg F Dialyzer MITESH 2022-08-21 17:19:54 1025 Calc F TBW (Rebolledo) 2022-08-21 17:19:54 F Unable to calculate: Post BUN lab result is unknown DIALYZER FLOW-QD 2022-08-21 17:19:54 503 mL/min F eKt/V 2022-08-21 17:19:54 F Unable to calculate: Post BUN lab result is unknown WEIGHT - POST DAY 1 2022-08-21 17:19:54 43.6 kg F BLOOD FLOW-QWB 2022-08-21 17:19:54 283 F PATIENT AGE 2022-08-21 17:19:54 51 Years F AMPUTATE FACTOR 2022-08-21 17:19:54 0 F TOTAL HOURS/WEEK DIALYSIS 2022-08-21 17:19:54 4 F BSA CINDY 2022-08-21 17:19:54 F Unable to calculate: Post BUN lab result is unknown WEIGHT (KG) 2022-08-21 17:19:54 44 kg F PRESCRIBED DAYS/WEEK 2022-08-21 17:19:54 2 Day/Wk F Urea nitrogen [Mass/volume] in Serum or Plasma 2022-08-21 17:17:40 35 mg/dL F 9.0-23.0 Total Kt/V 2022-07-24 15:12:25 1.61 F PRESCRIBED DAYS/WEEK 2022-07-24 15:12:25 2 Day/Wk F spKt/V 2022-07-24 15:12:25 1.61 F WEIGHT - POST DAY 1 2022-07-24 15:12:25 45.1 kg F stdKT/V Total 2022-07-24 15:12:25 N/A F URR% 2022-07-24 15:12:25 79 % F Residual kt/v 2022-07-24 15:12:25 F Std Renal KT/V 2022-07-24 15:12:25 N/A F KT/V PRESCRIBED 2022-07-24 15:12:25 2.11 F TBW (Rebolledo) 2022-07-24 15:12:25 25.86 Liters F VM (KT/V MEAN VOL) 2022-07-24 15:12:25 25 F PATIENT AGE 2022-07-24 15:12:25 51 Years F TOTAL HOURS/WEEK DIALYSIS 2022-07-24 15:12:25 6 F Dialyzer MITESH 2022-07-24 15:12:25 1025 Calc F BSA CINDY 2022-07-24 15:12:25 1.42 sq m F DIALYZER FLOW-QD 2022-07-24 15:12:25 502 mL/min F WEIGHT (KG) 2022-07-24 15:12:25 45 kg F HEIGHT IN INCHES 2022-07-24 15:12:25 62 Inches F CURRENT KRU 2022-07-24 15:12:25 F nPCR 2022-07-24 15:12:25 0.56 G/KG/D F BLOOD FLOW-QWB 2022-07-24 15:12:25 313 F stdKt/V (DIAL) 2022-07-24 15:12:25 N/A F WEIGHT - PRE DAY 1 2022-07-24 15:12:25 45 kg F AMPUTATE FACTOR 2022-07-24 15:12:25 0 F VT (KT/V TX VOL) 2022-07-24 15:12:25 26.7 L F eKt/V 2022-07-24 15:12:25 1.34 F LENGTH OF DIALYSIS 2022-07-24 15:12:25 189 min F Urea nitrogen [Mass/volume] in Serum or Plasma 2022-07-24 15:10:13 42 mg/dL F 9.0-23.0 Urea nitrogen [Mass/volume] in Serum or Plasma --post dialysis 2022-07-24 14:55:17 9 mg/dL F 9.0-23.0 WEIGHT - POST DAY 1 2022-06-20 02:12:10 43.2 kg F BLOOD FLOW-QWB 2022-06-20 02:12:10 333 F TBW (Rebolledo) 2022-06-20 02:12:10 25.39 Liters F KT/V PRESCRIBED 2022-06-20 02:12:10 2.08 F Std Renal KT/V 2022-06-20 02:12:10 N/A F WEIGHT (KG) 2022-06-20 02:12:10 43 kg F AMPUTATE FACTOR 2022-06-20 02:12:10 0 F eKt/V 2022-06-20 02:12:10 1.42 F Total Kt/V 2022-06-20 02:12:10 1.71 F PRESCRIBED DAYS/WEEK 2022-06-20 02:12:10 2 Day/Wk F LENGTH OF DIALYSIS 2022-06-20 02:12:10 183 min F PATIENT AGE 2022-06-20 02:12:10 51 Years F VT (KT/V TX VOL) 2022-06-20 02:12:10 25.1 L F HEIGHT IN INCHES 2022-06-20 02:12:10 62 Inches F stdKt/V (DIAL) 2022-06-20 02:12:10 N/A F spKt/V 2022-06-20 02:12:10 1.71 F URR% 2022-06-20 02:12:10 81 % F DIALYZER FLOW-QD 2022-06-20 02:12:10 501 mL/min F Residual kt/v 2022-06-20 02:12:10 F nPCR 2022-06-20 02:12:10 0.51 G/KG/D F stdKT/V Total 2022-06-20 02:12:10 N/A F Dialyzer MITESH 2022-06-20 02:12:10 1025 Calc F WEIGHT - PRE DAY 1 2022-06-20 02:12:10 43.2 kg F VM (KT/V MEAN VOL) 2022-06-20 02:12:10 24.4 F TOTAL HOURS/WEEK DIALYSIS 2022-06-20 02:12:10 6 F BSA CINDY 2022-06-20 02:12:10 1.39 sq m F CURRENT KRU 2022-06-20 02:12:10 F Urea nitrogen [Mass/volume] in Serum or Plasma 2022-06-19 19:21:32 36 mg/dL F 9.0-23.0 Urea nitrogen [Mass/volume] in Serum or Plasma --post dialysis 2022-06-19 19:07:12 7 mg/dL F 9.0-23.0 PRESCRIBED DAYS/WEEK 2022-05-15 22:50:59 2 Day/Wk F DIALYZER FLOW-QD 2022-05-15 22:50:59 606 mL/min F AMPUTATE FACTOR 2022-05-15 22:50:59 0 F URR% 2022-05-15 22:50:59 78 % F WEIGHT (KG) 2022-05-15 22:50:59 40 kg F spKt/V 2022-05-15 22:50:59 1.57 F eKt/V 2022-05-15 22:50:59 1.31 F TOTAL HOURS/WEEK DIALYSIS 2022-05-15 22:50:59 6 F PATIENT AGE 2022-05-15 22:50:59 51 Years F Total Kt/V 2022-05-15 22:50:59 1.57 F Dialyzer MITESH 2022-05-15 22:50:59 1025 Calc F stdKt/V (DIAL) 2022-05-15 22:50:59 N/A F nPCR 2022-05-15 22:50:59 0.5 G/KG/D F stdKT/V Total 2022-05-15 22:50:59 N/A F LENGTH OF DIALYSIS 2022-05-15 22:50:59 185 min F VT (KT/V TX VOL) 2022-05-15 22:50:59 26.4 L F WEIGHT - PRE DAY 1 2022-05-15 22:50:59 41.3 kg F BLOOD FLOW-QWB 2022-05-15 22:50:59 288 F WEIGHT - POST DAY 1 2022-05-15 22:50:59 41.8 kg F Residual kt/v 2022-05-15 22:50:59 F KT/V PRESCRIBED 2022-05-15 22:50:59 2.17 F VM (KT/V MEAN VOL) 2022-05-15 22:50:59 24.2 F HEIGHT IN INCHES 2022-05-15 22:50:59 62 Inches F TBW (Rebolledo) 2022-05-15 22:50:59 25.05 Liters F Std Renal KT/V 2022-05-15 22:50:59 N/A F BSA CINDY 2022-05-15 22:50:59 1.35 sq m F CURRENT KRU 2022-05-15 22:50:59 F Urea nitrogen [Mass/volume] in Serum or Plasma 2022-05-15 20:10:21 36 mg/dL F 9.0-23.0 Urea nitrogen [Mass/volume] in Serum or Plasma --post dialysis 2022-05-15 18:50:23 8 mg/dL F 9.0-23.0 VT (KT/V TX VOL) 2022-04-25 02:53:19 23.4 L F eKt/V 2022-04-25 02:53:19 1.4 F PATIENT AGE 2022-04-25 02:53:19 51 Years F LENGTH OF DIALYSIS 2022-04-25 02:53:19 183 min F spKt/V 2022-04-25 02:53:19 1.69 F KT/V PRESCRIBED 2022-04-25 02:53:19 1.94 F WEIGHT - POST DAY 1 2022-04-25 02:53:19 41.4 kg F VM (KT/V MEAN VOL) 2022-04-25 02:53:19 23.4 F TOTAL HOURS/WEEK DIALYSIS 2022-04-25 02:53:19 6 F WEIGHT - PRE DAY 1 2022-04-25 02:53:19 41.5 kg F TBW (Rebolledo) 2022-04-25 02:53:19 24.95 Liters F Dialyzer MITESH 2022-04-25 02:53:19 1025 Calc F nPCR 2022-04-25 02:53:19 0.5 G/KG/D F stdKt/V (DIAL) 2022-04-25 02:53:19 N/A F DIALYZER FLOW-QD 2022-04-25 02:53:19 500 mL/min F HEIGHT IN INCHES 2022-04-25 02:53:19 62 Inches F AMPUTATE FACTOR 2022-04-25 02:53:19 0 F URR% 2022-04-25 02:53:19 80 % F PRESCRIBED DAYS/WEEK 2022-04-25 02:53:19 2 Day/Wk F BLOOD FLOW-QWB 2022-04-25 02:53:19 283 F Total Kt/V 2022-04-25 02:53:19 1.69 F stdKT/V Total 2022-04-25 02:53:19 N/A F Std Renal KT/V 2022-04-25 02:53:19 N/A F WEIGHT (KG) 2022-04-25 02:53:19 41 kg F Residual kt/v 2022-04-25 02:53:19 F CURRENT KRU 2022-04-25 02:53:19 F BSA CINDY 2022-04-25 02:53:19 1.36 sq m F Urea nitrogen [Mass/volume] in Serum or Plasma 2022-04-25 02:51:07 35 mg/dL F 9.0-23.0 Urea nitrogen [Mass/volume] in Serum or Plasma --post dialysis 2022-04-24 22:35:13 7 mg/dL F 9.0-23.0 KT/V RESID (F) 2022-03-26 03:35:53 0.58 Kt/V F L/WK RESID CC 2022-03-26 03:35:53 18.48 L/wk F PCR PD FEMALE 2022-03-26 03:35:53 34.6 g/day F KT/V TOTAL (F) 2022-03-26 03:35:53 2.17 Kt/V F L/WK/1.73 RESID 2022-03-26 03:35:53 23.24 L/WK/B F PNA (PD) 2022-03-26 03:35:53 46.9 g/day F NPNA-PD FEMALE 2022-03-26 03:35:53 1.09 G/KG/D F L/WK/1.73 TOTAL 2022-03-26 03:35:53 67.12 L/WK/B F UREA CLR UR 2022-03-26 03:35:53 1.4 mL/min F NPCR PD FEMALE 2022-03-26 03:35:53 0.8 G/KG/D F Urea Gen Rate 2022-03-26 03:35:53 6.2 GM/D F UREA CLR UR/BSA 2022-03-26 03:35:53 1.8 mL/min F 64.0-99.0 CRE CLR UR/BSA 2022-03-26 03:35:53 3 mL/min F 75.0-115.0 CRE CLR UR 2022-03-26 03:35:53 2 mL/min F 88.0-128.0 Creatinine [Mass/volume] in Urine 2022-03-26 03:35:05 37.96 mg/dL F Urea nitrogen [Mass/volume] in Urine 2022-03-26 03:35:05 160 mg/dL F KT/V PDF (F) 2022-03-25 21:16:45 1.59 Kt/V F L/WK PDF CC 2022-03-25 21:16:45 34.89 L/wk F L/WK/1.73 PDF 2022-03-25 21:16:45 43.88 L/WK/B F Creatinine [Mass/volume] in Peritoneal dialysis fluid 2022-03-25 21:15:51 5.23 mg/dL F Urea nitrogen [Mass/volume] in Peritoneal fluid --24 hours post peritoneal dialysis 2022-03-25 21:15:51 39 mg/dL F TBW REBOLLEDO FEML 2022-03-25 21:11:34 25.05 Liters F BSA CINDY 2022-03-25 21:11:34 1.38 sq m F BUN/CREAT 2022-03-25 21:11:34 6.5 Calc F 8.2-46.0 Creatinine [Mass/volume] in Serum or Plasma 2022-03-25 21:10:56 8.29 mg/dL F 0.5-1.1 Urea nitrogen [Mass/volume] in Serum or Plasma 2022-03-25 21:10:56 54 mg/dL F 9.0-23.0 Total Volume of EFFL/DIAL 2022-03-24 19:01:56 7900 mLs F HEIGHT IN INCHES 2022-03-24 19:01:56 62 Inches F COLLECTION TIME FOR URINE 2022-03-24 19:01:56 1440 min F BODY WEIGHT (LBS) 2022-03-24 19:01:56 92 lbs F MINIMUM GOAL: KT/V PD 2022-03-24 19:01:56 1.7 F AMPUTATE FACTOR 2022-03-24 19:01:56 0 F TOTAL VOLUME-24 HR URINE 2022-03-24 19:01:56 700 mL F Anemia Description Draw Date Result/Unit Status Ref Range Result Comments HCT CALC HGBX3 2024-08-04 03:40:12 40.8 % F 37.0-47.0 Hemoglobin [Mass/volume] in Blood 2024-08-04 03:39:13 13.6 g/dL F 12.0-16.0 HCT CALC HGBX3 2024-07-28 00:41:48 40.8 % F 37.0-47.0 Hemoglobin [Mass/volume] in Blood 2024-07-28 00:39:18 13.6 g/dL F 12.0-16.0 HCT CALC HGBX3 2024-07-21 15:26:01 41.7 % F 37.0-47.0 Erythrocyte distribution width [Ratio] by Automated count 2024-07-21 15:25:10 14.4 % F 11.0-15.0 Hemoglobin [Mass/volume] in Blood 2024-07-21 15:25:10 13.9 g/dL F 12.0-16.0 Platelets [#/volume] in Blood by Automated count 2024-07-21 15:25:10 297 x 10^3 cells/uL F 140.0-450.0 MCH [Entitic mass] by Automated count 2024-07-21 15:25:10 31.1 pg F 25.9-34.2 MCHC [Mass/volume] by Automated count 2024-07-21 15:25:10 30.7 g/dL F 29.6-35.3 Erythrocytes [#/volume] in Blood by Automated count 2024-07-21 15:25:10 4.48 x 10^6 cells/uL F 3.85-5.2 Hematocrit [Volume Fraction] of Blood by Automated count 2024-07-21 15:25:10 45.3 % F 37.0-47.0 MCV [Entitic volume] by Automated count 2024-07-21 15:25:10 101.3 fL F 80.0-100.0 IRON SATURATION 2024-07-21 04:48:15 34 % F 16.0-46.0 TIBC 2024-07-21 04:48:15 187 ug/dL F 250.0-425.0 Iron binding capacity.unsaturated [Mass/volume] in Serum or Plasma 2024-07-21 04:46:17 123 ug/dL F 80.0-375.0 Iron [Mass/volume] in Serum or Plasma 2024-07-21 04:46:13 64 ug/dL F 50.0-170.0 Ferritin [Mass/volume] in Serum or Plasma 2024-07-21 02:32:20 436 ng/mL F 10.0-291.0 HCT CALC HGBX3 2024-07-13 22:55:31 43.5 % F 37.0-47.0 Hemoglobin [Mass/volume] in Blood 2024-07-13 22:54:18 14.5 g/dL F 12.0-16.0 IRON SATURATION 2024-07-07 07:21:53 26 % F 16.0-46.0 TIBC 2024-07-07 07:21:53 183 ug/dL F 250.0-425.0 Iron [Mass/volume] in Serum or Plasma 2024-07-07 07:15:39 47 ug/dL F 50.0-170.0 Iron binding capacity.unsaturated [Mass/volume] in Serum or Plasma 2024-07-07 07:15:39 136 ug/dL F 80.0-375.0 HCT CALC HGBX3 2024-07-07 02:06:43 44.1 % F 37.0-47.0 Hemoglobin [Mass/volume] in Blood 2024-07-07 02:06:04 14.7 g/dL F 12.0-16.0 Ferritin [Mass/volume] in Serum or Plasma 2024-06-30 05:06:18 426 ng/mL F 10.0-291.0 HCT CALC HGBX3 2024-06-22 17:29:15 40.2 % F 37.0-47.0 Hemoglobin [Mass/volume] in Blood 2024-06-22 17:28:19 13.4 g/dL F 12.0-16.0 Erythrocyte distribution width [Ratio] by Automated count 2024-06-22 17:28:19 13.6 % F 11.0-15.0 Platelets [#/volume] in Blood by Automated count 2024-06-22 17:28:19 256 x 10^3 cells/uL F 140.0-450.0 MCH [Entitic mass] by Automated count 2024-06-22 17:28:19 31.1 pg F 25.9-34.2 MCHC [Mass/volume] by Automated count 2024-06-22 17:28:19 32.4 g/dL F 29.6-35.3 Erythrocytes [#/volume] in Blood by Automated count 2024-06-22 17:28:19 4.3 x 10^6 cells/uL F 3.85-5.2 Hematocrit [Volume Fraction] of Blood by Automated count 2024-06-22 17:28:19 41.2 % F 37.0-47.0 MCV [Entitic volume] by Automated count 2024-06-22 17:28:19 95.9 fL F 80.0-100.0 IRON SATURATION 2024-06-14 20:34:19 35 % F 16.0-46.0 TIBC 2024-06-14 20:34:19 170 ug/dL F 250.0-425.0 Iron [Mass/volume] in Serum or Plasma 2024-06-14 20:32:18 59 ug/dL F 50.0-170.0 Iron binding capacity.unsaturated [Mass/volume] in Serum or Plasma 2024-06-14 20:31:49 111 ug/dL F 80.0-375.0 HCT CALC HGBX3 2024-06-14 16:54:15 F RECOLLECT - OUTDATED SPECIMEN,Unable to Calculate. Hematocrit [Volume Fraction] of Blood by Automated count 2024-06-14 16:54:14 F RECOLLECT - OUTDATED SPECIMEN Erythrocyte distribution width [Ratio] by Automated count 2024-06-14 16:54:14 F RECOLLECT - OUTDATED SPECIMEN Hemoglobin [Mass/volume] in Blood 2024-06-14 16:54:14 F RECOLLECT - OUTDATED SPECIMEN Platelets [#/volume] in Blood by Automated count 2024-06-14 16:54:14 F RECOLLECT - OUTDATED SPECIMEN MCHC [Mass/volume] by Automated count 2024-06-14 16:54:14 F RECOLLECT - OUTDATED SPECIMEN MCH [Entitic mass] by Automated count 2024-06-14 16:54:14 F RECOLLECT - OUTDATED SPECIMEN Erythrocytes [#/volume] in Blood by Automated count 2024-06-14 16:54:14 F RECOLLECT - OUTDATED SPECIMEN MCV [Entitic volume] by Automated count 2024-06-14 16:54:14 F RECOLLECT - OUTDATED SPECIMEN,NOTE: MCV may be falsely elevated in aged samples (approximately 72 hours). Ferritin [Mass/volume] in Serum or Plasma 2024-06-14 14:41:54 F CANCELED - TEST CANCELED HCT CALC HGBX3 2024-04-21 04:57:52 37.5 % F 37.0-47.0 Hemoglobin [Mass/volume] in Blood 2024-04-21 04:57:06 12.5 g/dL F 12.0-16.0 Erythrocyte distribution width [Ratio] by Automated count 2024-04-21 04:57:06 15.2 % F 11.0-15.0 Platelets [#/volume] in Blood by Automated count 2024-04-21 04:57:06 352 x 10^3 cells/uL F 140.0-450.0 MCH [Entitic mass] by Automated count 2024-04-21 04:57:06 31.4 pg F 25.9-34.2 MCHC [Mass/volume] by Automated count 2024-04-21 04:57:06 30.1 g/dL F 29.6-35.3 Erythrocytes [#/volume] in Blood by Automated count 2024-04-21 04:57:06 3.98 x 10^6 cells/uL F 3.85-5.2 Hematocrit [Volume Fraction] of Blood by Automated count 2024-04-21 04:57:06 41.6 % F 37.0-47.0 MCV [Entitic volume] by Automated count 2024-04-21 04:57:06 104.4 fL F 80.0-100.0 IRON SATURATION 2024-03-24 09:17:14 29 % F 16.0-46.0 TIBC 2024-03-24 09:17:14 173 ug/dL F 250.0-425.0 Iron [Mass/volume] in Serum or Plasma 2024-03-24 07:01:58 50 ug/dL F 50.0-170.0 Iron binding capacity.unsaturated [Mass/volume] in Serum or Plasma 2024-03-24 07:01:58 123 ug/dL F 80.0-375.0 Ferritin [Mass/volume] in Serum or Plasma 2024-03-24 01:39:22 300 ng/mL F 10.0-291.0 HCT CALC HGBX3 2024-03-23 22:40:17 35.7 % F 37.0-47.0 Erythrocyte distribution width [Ratio] by Automated count 2024-03-23 22:39:16 15.9 % F 11.0-15.0 Hemoglobin [Mass/volume] in Blood 2024-03-23 22:39:16 11.9 g/dL F 12.0-16.0 Platelets [#/volume] in Blood by Automated count 2024-03-23 22:39:16 333 x 10^3 cells/uL F 140.0-450.0 MCH [Entitic mass] by Automated count 2024-03-23 22:39:16 31.7 pg F 25.9-34.2 MCHC [Mass/volume] by Automated count 2024-03-23 22:39:16 31.8 g/dL F 29.6-35.3 Erythrocytes [#/volume] in Blood by Automated count 2024-03-23 22:39:16 3.76 x 10^6 cells/uL F 3.85-5.2 Hematocrit [Volume Fraction] of Blood by Automated count 2024-03-23 22:39:16 37.5 % F 37.0-47.0 MCV [Entitic volume] by Automated count 2024-03-23 22:39:16 99.6 fL F 80.0-100.0 HCT CALC HGBX3 2024-03-02 20:39:09 34.2 % F 37.0-47.0 Hemoglobin [Mass/volume] in Blood 2024-03-02 20:38:13 11.4 g/dL F 12.0-16.0 HCT CALC HGBX3 2024-01-13 22:15:33 43.2 % F 37.0-47.0 Hemoglobin [Mass/volume] in Blood 2024-01-13 22:14:21 14.4 g/dL F 12.0-16.0 HCT CALC HGBX3 2023-12-24 08:26:13 37.2 % F 37.0-47.0 IRON SATURATION 2023-12-24 08:26:13 31 % F 16.0-46.0 TIBC 2023-12-24 08:26:13 181 ug/dL F 250.0-425.0 Ferritin [Mass/volume] in Serum or Plasma 2023-12-24 08:13:16 408 ng/mL F 10.0-291.0 Erythrocyte distribution width [Ratio] by Automated count 2023-12-24 08:07:13 14.9 % F 11.0-15.0 Hemoglobin [Mass/volume] in Blood 2023-12-24 08:07:13 12.4 g/dL F 12.0-16.0 Platelets [#/volume] in Blood by Automated count 2023-12-24 08:07:13 330 x 10^3 cells/uL F 140.0-450.0 MCH [Entitic mass] by Automated count 2023-12-24 08:07:13 30.5 pg F 25.9-34.2 MCHC [Mass/volume] by Automated count 2023-12-24 08:07:13 31 g/dL F 29.6-35.3 Erythrocytes [#/volume] in Blood by Automated count 2023-12-24 08:07:13 4.08 x 10'6 cells/uL F 3.85-5.2 Hematocrit [Volume Fraction] of Blood by Automated count 2023-12-24 08:07:13 40.1 % F 37.0-47.0 MCV [Entitic volume] by Automated count 2023-12-24 08:07:13 98.5 fL F 80.0-100.0 Iron [Mass/volume] in Serum or Plasma 2023-12-24 07:50:11 57 ug/dL F 50.0-170.0 Iron binding capacity.unsaturated [Mass/volume] in Serum or Plasma 2023-12-24 07:50:11 124 ug/dL F 80.0-375.0 HCT CALC HGBX3 2023-11-26 15:09:56 39.3 % F 37.0-47.0 Erythrocyte distribution width [Ratio] by Automated count 2023-11-26 15:09:17 14.9 % F 11.0-15.0 Platelets [#/volume] in Blood by Automated count 2023-11-26 15:09:17 257 x 10^3 cells/uL F 140.0-450.0 Hemoglobin [Mass/volume] in Blood 2023-11-26 15:09:17 13.1 g/dL F 12.0-16.0 MCHC [Mass/volume] by Automated count 2023-11-26 15:09:17 29.4 g/dL F 29.6-35.3 MCH [Entitic mass] by Automated count 2023-11-26 15:09:17 30 pg F 25.9-34.2 Erythrocytes [#/volume] in Blood by Automated count 2023-11-26 15:09:17 4.35 x 10'6 cells/uL F 3.85-5.2 Hematocrit [Volume Fraction] of Blood by Automated count 2023-11-26 15:09:17 44.5 % F 37.0-47.0 MCV [Entitic volume] by Automated count 2023-11-26 15:09:17 102.3 fL F 80.0-100.0 HCT CALC HGBX3 2023-11-04 18:49:21 36.3 % F 37.0-47.0 Hemoglobin [Mass/volume] in Blood 2023-11-04 18:49:13 12.1 g/dL F 12.0-16.0 HCT CALC HGBX3 2023-10-21 22:01:24 33 % F 37.0-47.0 Erythrocyte distribution width [Ratio] by Automated count 2023-10-21 22:00:22 17.4 % F 11.0-15.0 Hemoglobin [Mass/volume] in Blood 2023-10-21 22:00:22 11 g/dL F 12.0-16.0 Platelets [#/volume] in Blood by Automated count 2023-10-21 22:00:22 376 x 10^3 cells/uL F 140.0-450.0 MCH [Entitic mass] by Automated count 2023-10-21 22:00:22 30 pg F 25.9-34.2 MCHC [Mass/volume] by Automated count 2023-10-21 22:00:22 29.9 g/dL F 29.6-35.3 Erythrocytes [#/volume] in Blood by Automated count 2023-10-21 22:00:22 3.67 x 10'6 cells/uL F 3.85-5.2 Hematocrit [Volume Fraction] of Blood by Automated count 2023-10-21 22:00:22 36.9 % F 37.0-47.0 MCV [Entitic volume] by Automated count 2023-10-21 22:00:22 100.5 fL F 80.0-100.0 IRON SATURATION 2023-09-24 07:00:53 45 % F 16.0-46.0 TIBC 2023-09-24 07:00:53 177 ug/dL F 250.0-425.0 Iron [Mass/volume] in Serum or Plasma 2023-09-24 06:50:00 79 ug/dL F 50.0-170.0 Iron binding capacity.unsaturated [Mass/volume] in Serum or Plasma 2023-09-24 06:50:00 98 ug/dL F 80.0-375.0 Ferritin [Mass/volume] in Serum or Plasma 2023-09-24 04:00:00 529 ng/mL F 10.0-291.0 HCT CALC HGBX3 2023-09-23 21:06:17 17.7 % F 37.0-47.0 Erythrocyte distribution width [Ratio] by Automated count 2023-09-23 21:05:30 16.2 % F 11.0-15.0 Hemoglobin [Mass/volume] in Blood 2023-09-23 21:05:30 5.9 g/dL F 12.0-16.0 Platelets [#/volume] in Blood by Automated count 2023-09-23 21:05:30 446 x 10^3 cells/uL F 140.0-450.0 MCH [Entitic mass] by Automated count 2023-09-23 21:05:30 32.1 pg F 25.9-34.2 MCHC [Mass/volume] by Automated count 2023-09-23 21:05:30 30.8 g/dL F 29.6-35.3 Erythrocytes [#/volume] in Blood by Automated count 2023-09-23 21:05:30 1.83 x 10'6 cells/uL F 3.85-5.2 Hematocrit [Volume Fraction] of Blood by Automated count 2023-09-23 21:05:30 19.1 % F 37.0-47.0 MCV [Entitic volume] by Automated count 2023-09-23 21:05:30 104.2 fL F 80.0-100.0 Ferritin [Mass/volume] in Serum or Plasma 2023-08-20 19:00:33 599 ng/mL F 10.0-291.0 IRON SATURATION 2023-08-20 07:48:20 74 % F 16.0-46.0 TIBC 2023-08-20 07:48:20 180 ug/dL F 250.0-425.0 Iron [Mass/volume] in Serum or Plasma 2023-08-20 07:34:36 134 ug/dL F 50.0-170.0 Iron binding capacity.unsaturated [Mass/volume] in Serum or Plasma 2023-08-20 07:34:36 46 ug/dL F 80.0-375.0 HCT CALC HGBX3 2023-08-20 01:51:57 35.7 % F 37.0-47.0 Erythrocyte distribution width [Ratio] by Automated count 2023-08-20 01:51:37 13.4 % F 11.0-15.0 Platelets [#/volume] in Blood by Automated count 2023-08-20 01:51:37 342 x 10^3 cells/uL F 140.0-450.0 Hemoglobin [Mass/volume] in Blood 2023-08-20 01:51:37 11.9 g/dL F 12.0-16.0 MCH [Entitic mass] by Automated count 2023-08-20 01:51:37 32.5 pg F 25.9-34.2 MCHC [Mass/volume] by Automated count 2023-08-20 01:51:37 32.5 g/dL F 29.6-35.3 Hematocrit [Volume Fraction] of Blood by Automated count 2023-08-20 01:51:37 36.6 % F 37.0-47.0 Erythrocytes [#/volume] in Blood by Automated count 2023-08-20 01:51:37 3.67 x 10'6 cells/uL F 3.85-5.2 MCV [Entitic volume] by Automated count 2023-08-20 01:51:37 99.9 fL F 80.0-100.0 HCT CALC HGBX3 2023-07-22 22:56:37 39.3 % F 37.0-47.0 Erythrocyte distribution width [Ratio] by Automated count 2023-07-22 22:55:35 14.5 % F 11.0-15.0 Hemoglobin [Mass/volume] in Blood 2023-07-22 22:55:35 13.1 g/dL F 12.0-16.0 Platelets [#/volume] in Blood by Automated count 2023-07-22 22:55:35 257 x 10^3 cells/uL F 140.0-450.0 MCH [Entitic mass] by Automated count 2023-07-22 22:55:35 32.3 pg F 25.9-34.2 MCHC [Mass/volume] by Automated count 2023-07-22 22:55:35 32.4 g/dL F 29.6-35.3 Erythrocytes [#/volume] in Blood by Automated count 2023-07-22 22:55:35 4.06 x 10'6 cells/uL F 3.85-5.2 Hematocrit [Volume Fraction] of Blood by Automated count 2023-07-22 22:55:35 40.4 % F 37.0-47.0 MCV [Entitic volume] by Automated count 2023-07-22 22:55:35 99.5 fL F 80.0-100.0 Ferritin [Mass/volume] in Serum or Plasma 2023-06-25 05:44:03 454 ng/mL F 10.0-291.0 IRON SATURATION 2023-06-25 05:35:33 50 % F 16.0-46.0 TIBC 2023-06-25 05:35:33 183 ug/dL F 250.0-425.0 Iron [Mass/volume] in Serum or Plasma 2023-06-25 05:34:10 92 ug/dL F 50.0-170.0 Iron binding capacity.unsaturated [Mass/volume] in Serum or Plasma 2023-06-25 05:34:10 91 ug/dL F 80.0-375.0 HCT CALC HGBX3 2023-06-24 19:01:54 36 % F 37.0-47.0 Erythrocyte distribution width [Ratio] by Automated count 2023-06-24 19:01:43 14.2 % F 11.0-15.0 Hemoglobin [Mass/volume] in Blood 2023-06-24 19:01:43 12 g/dL F 12.0-16.0 Platelets [#/volume] in Blood by Automated count 2023-06-24 19:01:43 256 x 10^3 cells/uL F 140.0-450.0 MCH [Entitic mass] by Automated count 2023-06-24 19:01:43 32.1 pg F 25.9-34.2 MCHC [Mass/volume] by Automated count 2023-06-24 19:01:43 32.6 g/dL F 29.6-35.3 Hematocrit [Volume Fraction] of Blood by Automated count 2023-06-24 19:01:43 36.7 % F 37.0-47.0 Erythrocytes [#/volume] in Blood by Automated count 2023-06-24 19:01:43 3.73 x 10'6 cells/uL F 3.85-5.2 MCV [Entitic volume] by Automated count 2023-06-24 19:01:43 98.5 fL F 80.0-100.0 HCT CALC HGBX3 2023-05-20 20:56:29 37.5 % F 37.0-47.0 Erythrocyte distribution width [Ratio] by Automated count 2023-05-20 20:55:32 15.1 % F 11.0-15.0 Hemoglobin [Mass/volume] in Blood 2023-05-20 20:55:32 12.5 g/dL F 12.0-16.0 Platelets [#/volume] in Blood by Automated count 2023-05-20 20:55:32 326 x 10^3 cells/uL F 140.0-450.0 MCH [Entitic mass] by Automated count 2023-05-20 20:55:32 31.6 pg F 25.9-34.2 MCHC [Mass/volume] by Automated count 2023-05-20 20:55:32 31 g/dL F 29.6-35.3 Erythrocytes [#/volume] in Blood by Automated count 2023-05-20 20:55:32 3.94 x 10'6 cells/uL F 3.85-5.2 Hematocrit [Volume Fraction] of Blood by Automated count 2023-05-20 20:55:32 40.1 % F 37.0-47.0 MCV [Entitic volume] by Automated count 2023-05-20 20:55:32 102 fL F 80.0-100.0 HCT CALC HGBX3 2023-04-23 05:16:35 35.1 % F 37.0-47.0 Erythrocyte distribution width [Ratio] by Automated count 2023-04-23 05:15:34 15.7 % F 11.0-15.0 Hemoglobin [Mass/volume] in Blood 2023-04-23 05:15:34 11.7 g/dL F 12.0-16.0 Platelets [#/volume] in Blood by Automated count 2023-04-23 05:15:34 273 x 10^3 cells/uL F 140.0-450.0 MCH [Entitic mass] by Automated count 2023-04-23 05:15:34 31.6 pg F 25.9-34.2 Erythrocytes [#/volume] in Blood by Automated count 2023-04-23 05:15:34 3.72 x 10'6 cells/uL F 3.85-5.2 MCHC [Mass/volume] by Automated count 2023-04-23 05:15:34 31.3 g/dL F 29.6-35.3 Hematocrit [Volume Fraction] of Blood by Automated count 2023-04-23 05:15:34 37.5 % F 37.0-47.0 MCV [Entitic volume] by Automated count 2023-04-23 05:15:34 100.7 fL F 80.0-100.0 Ferritin [Mass/volume] in Serum or Plasma 2023-03-26 08:11:39 596 ng/mL F 10.0-291.0 IRON SATURATION 2023-03-26 07:35:37 45 % F 16.0-46.0 TIBC 2023-03-26 07:35:37 188 ug/dL F 250.0-425.0 Iron [Mass/volume] in Serum or Plasma 2023-03-26 07:30:51 84 ug/dL F 50.0-170.0 Iron binding capacity.unsaturated [Mass/volume] in Serum or Plasma 2023-03-26 07:30:51 104 ug/dL F 80.0-375.0 HCT CALC HGBX3 2023-03-26 00:21:06 34.5 % F 37.0-47.0 Erythrocyte distribution width [Ratio] by Automated count 2023-03-26 00:20:26 15.1 % F 11.0-15.0 Hemoglobin [Mass/volume] in Blood 2023-03-26 00:20:26 11.5 g/dL F 12.0-16.0 Platelets [#/volume] in Blood by Automated count 2023-03-26 00:20:26 334 x 10^3 cells/uL F 140.0-450.0 MCH [Entitic mass] by Automated count 2023-03-26 00:20:26 32.3 pg F 25.9-34.2 MCHC [Mass/volume] by Automated count 2023-03-26 00:20:26 32.7 g/dL F 29.6-35.3 Erythrocytes [#/volume] in Blood by Automated count 2023-03-26 00:20:26 3.55 x 10'6 cells/uL F 3.85-5.2 Hematocrit [Volume Fraction] of Blood by Automated count 2023-03-26 00:20:26 35 % F 37.0-47.0 MCV [Entitic volume] by Automated count 2023-03-26 00:20:26 98.7 fL F 80.0-100.0 HCT CALC HGBX3 2023-02-19 21:31:15 34.2 % F 37.0-47.0 Erythrocyte distribution width [Ratio] by Automated count 2023-02-19 21:30:52 16.7 % F 11.0-15.0 Platelets [#/volume] in Blood by Automated count 2023-02-19 21:30:52 326 x 10^3 cells/uL F 140.0-450.0 Hemoglobin [Mass/volume] in Blood 2023-02-19 21:30:52 11.4 g/dL F 12.0-16.0 MCHC [Mass/volume] by Automated count 2023-02-19 21:30:52 30.8 g/dL F 29.6-35.3 MCH [Entitic mass] by Automated count 2023-02-19 21:30:52 31.2 pg F 25.9-34.2 Erythrocytes [#/volume] in Blood by Automated count 2023-02-19 21:30:52 3.67 x 10'6 cells/uL F 3.85-5.2 Hematocrit [Volume Fraction] of Blood by Automated count 2023-02-19 21:30:52 37.2 % F 37.0-47.0 MCV [Entitic volume] by Automated count 2023-02-19 21:30:52 101.4 fL F 80.0-100.0 HCT CALC HGBX3 2023-01-21 20:51:38 31.5 % F 37.0-47.0 Hemoglobin [Mass/volume] in Blood 2023-01-21 20:50:39 10.5 g/dL F 12.0-16.0 Erythrocyte distribution width [Ratio] by Automated count 2023-01-21 20:50:39 14.8 % F 11.0-15.0 Platelets [#/volume] in Blood by Automated count 2023-01-21 20:50:39 490 x 10^3 cells/uL F 140.0-450.0 MCH [Entitic mass] by Automated count 2023-01-21 20:50:39 31.1 pg F 25.9-34.2 Erythrocytes [#/volume] in Blood by Automated count 2023-01-21 20:50:39 3.38 x 10'6 cells/uL F 3.85-5.2 MCHC [Mass/volume] by Automated count 2023-01-21 20:50:39 30.7 g/dL F 29.6-35.3 Hematocrit [Volume Fraction] of Blood by Automated count 2023-01-21 20:50:39 34.3 % F 37.0-47.0 MCV [Entitic volume] by Automated count 2023-01-21 20:50:39 101.3 fL F 80.0-100.0 Ferritin [Mass/volume] in Serum or Plasma 2022-12-25 08:08:26 300 ng/mL F 10.0-291.0 IRON SATURATION 2022-12-25 06:11:43 25 % F 16.0-46.0 TIBC 2022-12-25 06:11:43 213 ug/dL F 250.0-425.0 Iron [Mass/volume] in Serum or Plasma 2022-12-25 06:08:42 53 ug/dL F 50.0-170.0 Iron binding capacity.unsaturated [Mass/volume] in Serum or Plasma 2022-12-25 06:08:42 160 ug/dL F 80.0-375.0 HCT CALC HGBX3 2022-12-24 22:23:45 34.5 % F 37.0-47.0 Erythrocyte distribution width [Ratio] by Automated count 2022-12-24 22:23:36 16.3 % F 11.0-15.0 Hemoglobin [Mass/volume] in Blood 2022-12-24 22:23:36 11.5 g/dL F 12.0-16.0 Platelets [#/volume] in Blood by Automated count 2022-12-24 22:23:36 374 x 10^3 cells/uL F 140.0-450.0 MCH [Entitic mass] by Automated count 2022-12-24 22:23:36 32.1 pg F 25.9-34.2 MCHC [Mass/volume] by Automated count 2022-12-24 22:23:36 31.3 g/dL F 29.6-35.3 Erythrocytes [#/volume] in Blood by Automated count 2022-12-24 22:23:36 3.58 x 10'6 cells/uL F 3.85-5.2 Hematocrit [Volume Fraction] of Blood by Automated count 2022-12-24 22:23:36 36.8 % F 37.0-47.0 MCV [Entitic volume] by Automated count 2022-12-24 22:23:36 102.9 fL F 80.0-100.0 HCT CALC HGBX3 2022-11-19 16:20:41 31.5 % F 37.0-47.0 Hemoglobin [Mass/volume] in Blood 2022-11-19 16:20:38 10.5 g/dL F 12.0-16.0 MCH [Entitic mass] by Automated count 2022-11-19 16:20:38 31.7 pg F 25.9-34.2 Erythrocytes [#/volume] in Blood by Automated count 2022-11-19 16:20:38 3.32 x 10'6 cells/uL F 3.85-5.2 Hematocrit [Volume Fraction] of Blood by Automated count 2022-11-19 16:20:38 33.2 % F 37.0-47.0 MCV [Entitic volume] by Automated count 2022-11-19 16:20:38 100 fL F 80.0-100.0 Erythrocyte distribution width [Ratio] by Automated count 2022-11-19 16:20:36 14.5 % F 11.0-15.0 Platelets [#/volume] in Blood by Automated count 2022-11-19 16:20:36 335 x 10^3 cells/uL F 140.0-450.0 MCHC [Mass/volume] by Automated count 2022-11-19 16:20:36 31.7 g/dL F 29.6-35.3 HCT CALC HGBX3 2022-10-22 21:19:43 31.8 % F 37.0-47.0 Erythrocyte distribution width [Ratio] by Automated count 2022-10-22 21:18:37 14.8 % F 11.0-15.0 Hemoglobin [Mass/volume] in Blood 2022-10-22 21:18:37 10.6 g/dL F 12.0-16.0 Platelets [#/volume] in Blood by Automated count 2022-10-22 21:18:37 380 x 10^3 cells/uL F 140.0-450.0 MCH [Entitic mass] by Automated count 2022-10-22 21:18:37 31.5 pg F 25.9-34.2 Erythrocytes [#/volume] in Blood by Automated count 2022-10-22 21:18:37 3.35 x 10'6 cells/uL F 3.85-5.2 Hematocrit [Volume Fraction] of Blood by Automated count 2022-10-22 21:18:37 33.1 % F 37.0-47.0 MCHC [Mass/volume] by Automated count 2022-10-22 21:18:37 31.9 g/dL F 29.6-35.3 MCV [Entitic volume] by Automated count 2022-10-22 21:18:37 98.6 fL F 80.0-100.0 Ferritin [Mass/volume] in Serum or Plasma 2022-09-25 20:02:35 318 ng/mL F 10.0-291.0 IRON SATURATION 2022-09-25 19:12:24 F Recollect - Hemolyzed specimen TIBC 2022-09-25 19:12:24 F Recollect - Hemolyzed specimen Iron [Mass/volume] in Serum or Plasma 2022-09-25 19:11:21 F Recollect - Hemolyzed specimen Iron binding capacity.unsaturated [Mass/volume] in Serum or Plasma 2022-09-25 19:11:21 F Recollect - Hemolyzed specimen HCT CALC HGBX3 2022-09-25 16:18:22 31.8 % F 37.0-47.0 Erythrocyte distribution width [Ratio] by Automated count 2022-09-25 16:17:38 14.9 % F 11.0-15.0 Hemoglobin [Mass/volume] in Blood 2022-09-25 16:17:38 10.6 g/dL F 12.0-16.0 Platelets [#/volume] in Blood by Automated count 2022-09-25 16:17:38 261 x 10^3 cells/uL F 140.0-450.0 MCH [Entitic mass] by Automated count 2022-09-25 16:17:38 31.8 pg F 25.9-34.2 MCHC [Mass/volume] by Automated count 2022-09-25 16:17:38 32.2 g/dL F 29.6-35.3 Erythrocytes [#/volume] in Blood by Automated count 2022-09-25 16:17:38 3.35 x 10'6 cells/uL F 3.85-5.2 Hematocrit [Volume Fraction] of Blood by Automated count 2022-09-25 16:17:38 33 % F 37.0-47.0 MCV [Entitic volume] by Automated count 2022-09-25 16:17:38 98.8 fL F 80.0-100.0 HCT CALC HGBX3 2022-08-22 02:59:53 35.4 % F 37.0-47.0 Erythrocyte distribution width [Ratio] by Automated count 2022-08-22 02:59:25 16.8 % F 11.0-15.0 Hemoglobin [Mass/volume] in Blood 2022-08-22 02:59:25 11.8 g/dL F 12.0-16.0 Platelets [#/volume] in Blood by Automated count 2022-08-22 02:59:25 262 x 10^3 cells/uL F 140.0-450.0 MCH [Entitic mass] by Automated count 2022-08-22 02:59:25 31.1 pg F 25.9-34.2 MCHC [Mass/volume] by Automated count 2022-08-22 02:59:25 32 g/dL F 29.6-35.3 Erythrocytes [#/volume] in Blood by Automated count 2022-08-22 02:59:25 3.79 x 10'6 cells/uL F 3.85-5.2 Hematocrit [Volume Fraction] of Blood by Automated count 2022-08-22 02:59:25 36.8 % F 37.0-47.0 MCV [Entitic volume] by Automated count 2022-08-22 02:59:25 97.1 fL F 80.0-100.0 HCT CALC HGBX3 2022-07-24 16:19:53 32.7 % F 37.0-47.0 Erythrocyte distribution width [Ratio] by Automated count 2022-07-24 16:19:16 16.3 % F 11.0-15.0 Platelets [#/volume] in Blood by Automated count 2022-07-24 16:19:16 270 x 10^3 cells/uL F 140.0-450.0 Hemoglobin [Mass/volume] in Blood 2022-07-24 16:19:14 10.9 g/dL F 12.0-16.0 MCH [Entitic mass] by Automated count 2022-07-24 16:19:14 30.4 pg F 25.9-34.2 MCHC [Mass/volume] by Automated count 2022-07-24 16:19:14 32 g/dL F 29.6-35.3 Erythrocytes [#/volume] in Blood by Automated count 2022-07-24 16:19:14 3.6 x 10'6 cells/uL F 3.85-5.2 Hematocrit [Volume Fraction] of Blood by Automated count 2022-07-24 16:19:14 34.1 % F 37.0-47.0 MCV [Entitic volume] by Automated count 2022-07-24 16:19:14 94.9 fL F 80.0-100.0 HCT CALC HGBX3 2022-06-19 18:09:55 32.4 % F 37.0-47.0 Hemoglobin [Mass/volume] in Blood 2022-06-19 18:09:21 10.8 g/dL F 12.0-16.0 Erythrocyte distribution width [Ratio] by Automated count 2022-06-19 18:09:21 17.3 % F 11.0-15.0 Platelets [#/volume] in Blood by Automated count 2022-06-19 18:09:21 337 x 10^3 cells/uL F 150.0-400.0 MCH [Entitic mass] by Automated count 2022-06-19 18:09:21 28.7 pg F 27.0-31.0 MCHC [Mass/volume] by Automated count 2022-06-19 18:09:21 31.1 g/dL F 32.0-36.0 Hematocrit [Volume Fraction] of Blood by Automated count 2022-06-19 18:09:21 34.7 % F 37.0-47.0 Erythrocytes [#/volume] in Blood by Automated count 2022-06-19 18:09:21 3.75 x 10'6 cells/uL F 4.2-5.4 MCV [Entitic volume] by Automated count 2022-06-19 18:09:21 92.5 fL F 80.0-100.0 HCT CALC HGBX3 2022-05-16 01:36:06 32.1 % F 37.0-47.0 Erythrocyte distribution width [Ratio] by Automated count 2022-05-16 01:35:15 16.1 % F 11.0-15.0 Hemoglobin [Mass/volume] in Blood 2022-05-16 01:35:15 10.7 g/dL F 12.0-16.0 Platelets [#/volume] in Blood by Automated count 2022-05-16 01:35:15 367 x 10^3 cells/uL F 150.0-400.0 MCH [Entitic mass] by Automated count 2022-05-16 01:35:15 29 pg F 27.0-31.0 MCHC [Mass/volume] by Automated count 2022-05-16 01:35:15 30.3 g/dL F 32.0-36.0 Hematocrit [Volume Fraction] of Blood by Automated count 2022-05-16 01:35:15 35.4 % F 37.0-47.0 Erythrocytes [#/volume] in Blood by Automated count 2022-05-16 01:35:15 3.7 x 10'6 cells/uL F 4.2-5.4 MCV [Entitic volume] by Automated count 2022-05-16 01:35:15 95.8 fL F 80.0-100.0 IRON SATURATION 2022-04-25 04:14:41 17 % F 16.0-46.0 TIBC 2022-04-25 04:14:41 219 ug/dL F 250.0-425.0 Iron [Mass/volume] in Serum or Plasma 2022-04-25 03:32:08 37 ug/dL F 50.0-170.0 Iron binding capacity.unsaturated [Mass/volume] in Serum or Plasma 2022-04-25 03:32:08 182 ug/dL F 80.0-375.0 HCT CALC HGBX3 2022-04-24 23:29:21 31.5 % F 37.0-47.0 Erythrocyte distribution width [Ratio] by Automated count 2022-04-24 23:28:15 15.5 % F 11.0-15.0 MCHC [Mass/volume] by Automated count 2022-04-24 23:28:15 31.8 g/dL F 32.0-36.0 Hematocrit [Volume Fraction] of Blood by Automated count 2022-04-24 23:28:15 33 % F 37.0-47.0 Hemoglobin [Mass/volume] in Blood 2022-04-24 23:28:13 10.5 g/dL F 12.0-16.0 Platelets [#/volume] in Blood by Automated count 2022-04-24 23:28:13 471 x 10^3 cells/uL F 150.0-400.0 MCH [Entitic mass] by Automated count 2022-04-24 23:28:13 30.9 pg F 27.0-31.0 Erythrocytes [#/volume] in Blood by Automated count 2022-04-24 23:28:13 3.4 x 10'6 cells/uL F 4.2-5.4 MCV [Entitic volume] by Automated count 2022-04-24 23:28:13 97.2 fL F 80.0-100.0 HCT CALC HGBX3 2022-03-26 21:00:51 30 % F 37.0-47.0 Erythrocyte distribution width [Ratio] by Automated count 2022-03-26 20:59:49 13.4 % F 11.0-15.0 Hemoglobin [Mass/volume] in Blood 2022-03-26 20:59:49 10 g/dL F 12.0-16.0 Platelets [#/volume] in Blood by Automated count 2022-03-26 20:59:49 557 x 10^3 cells/uL F 150.0-400.0 MCH [Entitic mass] by Automated count 2022-03-26 20:59:49 31.3 pg F 27.0-31.0 MCHC [Mass/volume] by Automated count 2022-03-26 20:59:49 30.3 g/dL F 32.0-36.0 Hematocrit [Volume Fraction] of Blood by Automated count 2022-03-26 20:59:49 33.2 % F 37.0-47.0 Erythrocytes [#/volume] in Blood by Automated count 2022-03-26 20:59:49 3.21 x 10'6 cells/uL F 4.2-5.4 MCV [Entitic volume] by Automated count 2022-03-26 20:59:49 103.5 fL F 80.0-100.0 Hemoglobin [Mass/volume] in Blood HCT CALC HGBX3 FluidBP Description Draw Date Result/Unit Status Ref Range Result Comments Sodium [Moles/volume] in Serum or Plasma 2024-06-01 11:15:00 139 mEq/L F 136-145 Sodium [Moles/volume] in Serum or Plasma 2022-03-25 21:10:56 140 mEq/L F 132.0-146.0 General Description Draw Date Result/Unit Status Ref Range Result Comments Chloride [Moles/volume] in Serum or Plasma 2024-07-21 04:46:13 89 mEq/L F 99.0-109.0 Aspartate aminotransferase [Enzymatic activity/volume] in Serum or Plasma 2024-07-21 04:30:15 18 U/L F 0.0-33.0 Alanine aminotransferase [Enzymatic activity/volume] in Serum or Plasma 2024-07-21 04:30:15 9 U/L F 10.0-49.0 Chloride [Moles/volume] in Serum or Plasma 2024-06-22 22:12:24 83 mEq/L F 99.0-109.0 Aspartate aminotransferase [Enzymatic activity/volume] in Serum or Plasma 2024-06-22 13:54:16 15 U/L F 0.0-33.0 Chloride [Moles/volume] in Serum or Plasma 2024-06-14 20:32:18 84 mEq/L F 99.0-109.0 Aspartate aminotransferase [Enzymatic activity/volume] in Serum or Plasma 2024-06-14 15:03:26 15 U/L F 0.0-33.0 Alanine aminotransferase [Enzymatic activity/volume] in Serum or Plasma 2024-06-14 15:03:26 9 U/L F 10.0-49.0 Chloride [Moles/volume] in Serum or Plasma 2024-06-01 11:15:00 97 mEq/L F 98-107 Chloride [Moles/volume] in Serum or Plasma 2024-04-21 07:04:43 90 mEq/L F 99.0-109.0 Aspartate aminotransferase [Enzymatic activity/volume] in Serum or Plasma 2024-04-20 19:25:21 14 U/L F 0.0-33.0 Alanine aminotransferase [Enzymatic activity/volume] in Serum or Plasma 2024-04-20 19:25:21 9 U/L F 10.0-49.0 Chloride [Moles/volume] in Serum or Plasma 2024-03-24 07:01:58 95 mEq/L F 99.0-109.0 Aspartate aminotransferase [Enzymatic activity/volume] in Serum or Plasma 2024-03-23 14:37:25 11 U/L F 0.0-33.0 Alanine aminotransferase [Enzymatic activity/volume] in Serum or Plasma 2024-03-23 14:37:25 9 U/L F 10.0-49.0 Chloride [Moles/volume] in Serum or Plasma 2023-12-24 07:50:25 90 mEq/L F 99.0-109.0 Aspartate aminotransferase [Enzymatic activity/volume] in Serum or Plasma 2023-12-23 23:32:26 16 U/L F 0.0-33.0 Alanine aminotransferase [Enzymatic activity/volume] in Serum or Plasma 2023-12-23 23:32:26 11 U/L F 10.0-49.0 Aluminum [Mass/volume] in Serum or Plasma 2023-12-23 19:08:13 10 ug/L F 0.0-9.0 Chloride [Moles/volume] in Serum or Plasma 2023-11-26 07:17:11 97 mEq/L F 99.0-109.0 Aspartate aminotransferase [Enzymatic activity/volume] in Serum or Plasma 2023-11-26 04:47:31 14 U/L F 0.0-33.0 Alanine aminotransferase [Enzymatic activity/volume] in Serum or Plasma 2023-11-26 04:47:31 10 U/L F 10.0-49.0 Chloride [Moles/volume] in Serum or Plasma 2023-10-22 06:35:49 92 mEq/L F 99.0-109.0 Aspartate aminotransferase [Enzymatic activity/volume] in Serum or Plasma 2023-10-21 18:53:15 20 U/L F 0.0-33.0 Alanine aminotransferase [Enzymatic activity/volume] in Serum or Plasma 2023-10-21 18:53:15 15 U/L F 10.0-49.0 Chloride [Moles/volume] in Serum or Plasma 2023-09-24 06:50:04 98 mEq/L F 99.0-109.0 Aspartate aminotransferase [Enzymatic activity/volume] in Serum or Plasma 2023-09-23 20:27:28 20 U/L F 0.0-33.0 Alanine aminotransferase [Enzymatic activity/volume] in Serum or Plasma 2023-09-23 20:27:28 10 U/L F 10.0-49.0 Chloride [Moles/volume] in Serum or Plasma 2023-08-20 07:34:36 92 mEq/L F 99.0-109.0 Aspartate aminotransferase [Enzymatic activity/volume] in Serum or Plasma 2023-08-20 06:08:31 15 U/L F 0.0-33.0 Alanine aminotransferase [Enzymatic activity/volume] in Serum or Plasma 2023-08-20 06:08:31 10 U/L F 10.0-49.0 Chloride [Moles/volume] in Serum or Plasma 2023-07-23 06:43:26 93 mEq/L F 99.0-109.0 Aspartate aminotransferase [Enzymatic activity/volume] in Serum or Plasma 2023-07-23 01:21:39 12 U/L F 0.0-33.0 Alanine aminotransferase [Enzymatic activity/volume] in Serum or Plasma 2023-07-23 01:21:39 11 U/L F 10.0-49.0 Chloride [Moles/volume] in Serum or Plasma 2023-06-25 05:34:10 93 mEq/L F 99.0-109.0 Aspartate aminotransferase [Enzymatic activity/volume] in Serum or Plasma 2023-06-24 16:30:40 14 U/L F 0.0-33.0 Alanine aminotransferase [Enzymatic activity/volume] in Serum or Plasma 2023-06-24 16:30:40 11 U/L F 10.0-49.0 Chloride [Moles/volume] in Serum or Plasma 2023-05-21 07:03:41 92 mEq/L F 99.0-109.0 Aspartate aminotransferase [Enzymatic activity/volume] in Serum or Plasma 2023-05-20 15:30:40 14 U/L F 0.0-33.0 Alanine aminotransferase [Enzymatic activity/volume] in Serum or Plasma 2023-05-20 15:30:40 11 U/L F 10.0-49.0 Chloride [Moles/volume] in Serum or Plasma 2023-04-23 07:06:34 93 mEq/L F 99.0-109.0 Aspartate aminotransferase [Enzymatic activity/volume] in Serum or Plasma 2023-04-23 03:21:38 12 U/L F 0.0-33.0 Alanine aminotransferase [Enzymatic activity/volume] in Serum or Plasma 2023-04-23 03:21:38 9 U/L F 10.0-49.0 Chloride [Moles/volume] in Serum or Plasma 2023-03-26 07:30:51 99 mEq/L F 99.0-109.0 Aspartate aminotransferase [Enzymatic activity/volume] in Serum or Plasma 2023-03-25 21:36:46 12 U/L F 0.0-33.0 Alanine aminotransferase [Enzymatic activity/volume] in Serum or Plasma 2023-03-25 21:36:46 10 U/L F 10.0-49.0 Chloride [Moles/volume] in Serum or Plasma 2023-02-20 08:30:15 99 mEq/L F 99.0-109.0 Aspartate aminotransferase [Enzymatic activity/volume] in Serum or Plasma 2023-02-20 06:23:08 15 U/L F 0.0-33.0 Alanine aminotransferase [Enzymatic activity/volume] in Serum or Plasma 2023-02-20 06:23:08 9 U/L F 10.0-49.0 Chloride [Moles/volume] in Serum or Plasma 2023-01-22 07:53:10 104 mEq/L F 99.0-109.0 Aspartate aminotransferase [Enzymatic activity/volume] in Serum or Plasma 2023-01-21 19:06:39 9 U/L F 0.0-33.0 Alanine aminotransferase [Enzymatic activity/volume] in Serum or Plasma 2023-01-21 19:06:39 9 U/L F 10.0-49.0 Aspartate aminotransferase [Enzymatic activity/volume] in Serum or Plasma 2022-12-24 19:18:34 12 U/L F 0.0-33.0 Alanine aminotransferase [Enzymatic activity/volume] in Serum or Plasma 2022-12-24 19:18:34 9 U/L F 10.0-49.0 Chloride [Moles/volume] in Serum or Plasma 2022-12-24 19:18:34 103 mEq/L F 99.0-109.0 Aspartate aminotransferase [Enzymatic activity/volume] in Serum or Plasma 2022-11-19 15:28:30 17 U/L F 0.0-33.0 Alanine aminotransferase [Enzymatic activity/volume] in Serum or Plasma 2022-11-19 15:28:30 14 U/L F 10.0-49.0 Chloride [Moles/volume] in Serum or Plasma 2022-11-19 15:28:30 95 mEq/L F 99.0-109.0 Aspartate aminotransferase [Enzymatic activity/volume] in Serum or Plasma 2022-10-23 04:55:43 14 U/L F 0.0-33.0 Alanine aminotransferase [Enzymatic activity/volume] in Serum or Plasma 2022-10-23 04:55:43 12 U/L F 10.0-49.0 Chloride [Moles/volume] in Serum or Plasma 2022-10-23 04:55:43 90 mEq/L F 99.0-109.0 Alanine aminotransferase [Enzymatic activity/volume] in Serum or Plasma 2022-09-25 19:11:44 9 U/L F 10.0-49.0 Chloride [Moles/volume] in Serum or Plasma 2022-09-25 19:11:44 90 mEq/L F 99.0-109.0 Aspartate aminotransferase [Enzymatic activity/volume] in Serum or Plasma 2022-09-25 19:11:21 F Recollect - Hemolyzed specimen Aspartate aminotransferase [Enzymatic activity/volume] in Serum or Plasma 2022-08-21 17:17:40 23 U/L F 0.0-33.0 Alanine aminotransferase [Enzymatic activity/volume] in Serum or Plasma 2022-08-21 17:17:40 22 U/L F 10.0-49.0 Chloride [Moles/volume] in Serum or Plasma 2022-08-21 17:17:40 89 mEq/L F 99.0-109.0 Aspartate aminotransferase [Enzymatic activity/volume] in Serum or Plasma 2022-07-24 15:10:13 21 U/L F 0.0-33.0 Alanine aminotransferase [Enzymatic activity/volume] in Serum or Plasma 2022-07-24 15:10:13 19 U/L F 10.0-49.0 Chloride [Moles/volume] in Serum or Plasma 2022-07-24 15:10:13 91 mEq/L F 99.0-109.0 Aspartate aminotransferase [Enzymatic activity/volume] in Serum or Plasma 2022-06-19 19:21:32 28 U/L F 0.0-33.0 Alanine aminotransferase [Enzymatic activity/volume] in Serum or Plasma 2022-06-19 19:21:32 21 U/L F 10.0-49.0 Chloride [Moles/volume] in Serum or Plasma 2022-06-19 19:21:32 90 mEq/L F 99.0-109.0 Aspartate aminotransferase [Enzymatic activity/volume] in Serum or Plasma 2022-05-15 20:10:21 16 U/L F 0.0-33.0 Chloride [Moles/volume] in Serum or Plasma 2022-05-15 20:10:21 88 mEq/L F 99.0-109.0 Aspartate aminotransferase [Enzymatic activity/volume] in Serum or Plasma 2022-04-25 02:51:07 17 U/L F 0.0-33.0 Chloride [Moles/volume] in Serum or Plasma 2022-04-25 02:51:07 89 mEq/L F 99.0-109.0 ROSIE PD 2022-03-26 03:35:53 4.2 g/day F Aspartate aminotransferase [Enzymatic activity/volume] in Serum or Plasma 2022-03-25 21:10:56 14 U/L F 0.0-33.0 Chloride [Moles/volume] in Serum or Plasma 2022-03-25 21:10:56 91 mEq/L F 99.0-109.0 InfectionVaccination Description Draw Date Result/Unit Status Ref Range Result Comments Neutrophils/100 leukocytes in Blood by Automated count 2024-07-21 15:25:10 63.8 % F Lymphocytes/100 leukocytes in Blood by Automated count 2024-07-21 15:25:10 21.3 % F Basophils/100 leukocytes in Blood by Automated count 2024-07-21 15:25:10 1.7 % F Eosinophils/100 leukocytes in Blood by Automated count 2024-07-21 15:25:10 5.3 % F Monocytes/100 leukocytes in Blood by Automated count 2024-07-21 15:25:10 7.8 % F Monocytes [#/volume] in Blood by Automated count 2024-07-21 15:25:10 441 Cells/uL F 0.0-1100.0 Basophils [#/volume] in Blood by Automated count 2024-07-21 15:25:10 96 Cells/uL F 0.0-400.0 Eosinophils [#/volume] in Blood by Automated count 2024-07-21 15:25:10 300 Cells/uL F 0.0-700.0 Neutrophils [#/volume] in Blood by Automated count 2024-07-21 15:25:10 3611 Cells/uL F 2000.0-8800. 0 Leukocytes [#/volume] in Blood by Automated count 2024-07-21 15:25:10 5.7 x 10^3 cells/uL F 4.0-11.0 Lymphocytes [#/volume] in Blood by Automated count 2024-07-21 15:25:10 1206 Cells/uL F 620.0-3660.0 Basophils/100 leukocytes in Blood by Automated count 2024-06-22 17:28:19 0.4 % F Neutrophils/100 leukocytes in Blood by Automated count 2024-06-22 17:28:19 62.7 % F Lymphocytes/100 leukocytes in Blood by Automated count 2024-06-22 17:28:19 20.6 % F Eosinophils/100 leukocytes in Blood by Automated count 2024-06-22 17:28:19 5.7 % F Monocytes [#/volume] in Blood by Automated count 2024-06-22 17:28:19 706 Cells/uL F 0.0-1100.0 Monocytes/100 leukocytes in Blood by Automated count 2024-06-22 17:28:19 10.5 % F Basophils [#/volume] in Blood by Automated count 2024-06-22 17:28:19 27 Cells/uL F 0.0-400.0 Eosinophils [#/volume] in Blood by Automated count 2024-06-22 17:28:19 383 Cells/uL F 0.0-700.0 Neutrophils [#/volume] in Blood by Automated count 2024-06-22 17:28:19 4213 Cells/uL F 2000.0-8800. 0 Leukocytes [#/volume] in Blood by Automated count 2024-06-22 17:28:19 6.7 x 10^3 cells/uL F 4.0-11.0 Lymphocytes [#/volume] in Blood by Automated count 2024-06-22 17:28:19 1384 Cells/uL F 620.0-3660.0 Neutrophils [#/volume] in Blood by Automated count 2024-06-14 16:54:14 F RECOLLECT - OUTDATED SPECIMEN Basophils [#/volume] in Blood by Automated count 2024-06-14 16:54:14 F RECOLLECT - OUTDATED SPECIMEN Lymphocytes/100 leukocytes in Blood by Automated count 2024-06-14 16:54:14 F RECOLLECT - OUTDATED SPECIMEN Eosinophils [#/volume] in Blood by Automated count 2024-06-14 16:54:14 F RECOLLECT - OUTDATED SPECIMEN Monocytes [#/volume] in Blood by Automated count 2024-06-14 16:54:14 F RECOLLECT - OUTDATED SPECIMEN Monocytes/100 leukocytes in Blood by Automated count 2024-06-14 16:54:14 F RECOLLECT - OUTDATED SPECIMEN Neutrophils/100 leukocytes in Blood by Automated count 2024-06-14 16:54:14 F RECOLLECT - OUTDATED SPECIMEN,WBC differential count percentage results will continue to be reported without reference ranges per [employer] guidelines and will not be flagged Normal of Abnormal. Refer to Absolute Differential counts for reference ranges. Lymphocytes [#/volume] in Blood by Automated count 2024-06-14 16:54:14 F RECOLLECT - OUTDATED SPECIMEN Eosinophils/100 leukocytes in Blood by Automated count 2024-06-14 16:54:14 F RECOLLECT - OUTDATED SPECIMEN Leukocytes [#/volume] in Blood by Automated count 2024-06-14 16:54:14 F RECOLLECT - OUTDATED SPECIMEN Basophils/100 leukocytes in Blood by Automated count 2024-06-14 16:54:14 F RECOLLECT - OUTDATED SPECIMEN Phosphate [Mass/volume] in Urine 2024-06-01 11:15:00 7.2 mg/dL F 2.5-4.5 Monocytes/100 leukocytes in Blood by Automated count 2024-04-21 04:57:06 8.7 % F Neutrophils/100 leukocytes in Blood by Automated count 2024-04-21 04:57:06 70.8 % F Lymphocytes/100 leukocytes in Blood by Automated count 2024-04-21 04:57:06 16.6 % F Basophils/100 leukocytes in Blood by Automated count 2024-04-21 04:57:06 1.1 % F Eosinophils/100 leukocytes in Blood by Automated count 2024-04-21 04:57:06 2.8 % F Monocytes [#/volume] in Blood by Automated count 2024-04-21 04:57:06 603 Cells/uL F 0.0-1100.0 Basophils [#/volume] in Blood by Automated count 2024-04-21 04:57:06 76 Cells/uL F 0.0-400.0 Eosinophils [#/volume] in Blood by Automated count 2024-04-21 04:57:06 194 Cells/uL F 0.0-700.0 Neutrophils [#/volume] in Blood by Automated count 2024-04-21 04:57:06 4906 Cells/uL F 2000.0-8800. 0 Leukocytes [#/volume] in Blood by Automated count 2024-04-21 04:57:06 6.9 x 10^3 cells/uL F 4.0-11.0 Lymphocytes [#/volume] in Blood by Automated count 2024-04-21 04:57:06 1150 Cells/uL F 620.0-3660.0 Basophils/100 leukocytes in Blood by Automated count 2024-03-23 22:39:16 0.3 % F Neutrophils/100 leukocytes in Blood by Automated count 2024-03-23 22:39:16 64.9 % F Lymphocytes/100 leukocytes in Blood by Automated count 2024-03-23 22:39:16 23.4 % F Monocytes/100 leukocytes in Blood by Automated count 2024-03-23 22:39:16 8.2 % F Eosinophils/100 leukocytes in Blood by Automated count 2024-03-23 22:39:16 3.2 % F Monocytes [#/volume] in Blood by Automated count 2024-03-23 22:39:16 498 Cells/uL F 0.0-1100.0 Eosinophils [#/volume] in Blood by Automated count 2024-03-23 22:39:16 194 Cells/uL F 0.0-700.0 Basophils [#/volume] in Blood by Automated count 2024-03-23 22:39:16 18 Cells/uL F 0.0-400.0 Neutrophils [#/volume] in Blood by Automated count 2024-03-23 22:39:16 3939 Cells/uL F 2000.0-8800. 0 Leukocytes [#/volume] in Blood by Automated count 2024-03-23 22:39:16 6.1 x 10^3 cells/uL F 4.0-11.0 Lymphocytes [#/volume] in Blood by Automated count 2024-03-23 22:39:16 1420 Cells/uL F 620.0-3660.0 Lymphocytes/100 leukocytes in Blood by Automated count 2023-12-24 08:07:13 23.6 % F Neutrophils/100 leukocytes in Blood by Automated count 2023-12-24 08:07:13 60.8 % F Basophils/100 leukocytes in Blood by Automated count 2023-12-24 08:07:13 0.4 % F Eosinophils/100 leukocytes in Blood by Automated count 2023-12-24 08:07:13 5.8 % F Monocytes/100 leukocytes in Blood by Automated count 2023-12-24 08:07:13 9.5 % F Monocytes [#/volume] in Blood by Automated count 2023-12-24 08:07:13 379 Cells/uL F 0.0-1100.0 Basophils [#/volume] in Blood by Automated count 2023-12-24 08:07:13 16 Cells/uL F 0.0-400.0 Eosinophils [#/volume] in Blood by Automated count 2023-12-24 08:07:13 231 Cells/uL F 0.0-700.0 Neutrophils [#/volume] in Blood by Automated count 2023-12-24 08:07:13 2426 Cells/uL F 2000.0-8800. 0 Leukocytes [#/volume] in Blood by Automated count 2023-12-24 08:07:13 4 x 10^3 cells/uL F 4.0-11.0 Lymphocytes [#/volume] in Blood by Automated count 2023-12-24 08:07:13 942 Cells/uL F 620.0-3660.0 Neutrophils/100 leukocytes in Blood by Automated count 2023-11-26 15:09:19 54.6 % F Eosinophils/100 leukocytes in Blood by Automated count 2023-11-26 15:09:19 7.3 % F Monocytes/100 leukocytes in Blood by Automated count 2023-11-26 15:09:19 9.3 % F Monocytes [#/volume] in Blood by Automated count 2023-11-26 15:09:19 388 Cell/uL F 0.0-1100.0 Neutrophils [#/volume] in Blood by Automated count 2023-11-26 15:09:19 2277 Cell/uL F 2000.0-8800. 0 Lymphocytes/100 leukocytes in Blood by Automated count 2023-11-26 15:09:17 27.4 % F Basophils/100 leukocytes in Blood by Automated count 2023-11-26 15:09:17 1.4 % F Basophils [#/volume] in Blood by Automated count 2023-11-26 15:09:17 58 Cell/uL F 0.0-400.0 Eosinophils [#/volume] in Blood by Automated count 2023-11-26 15:09:17 304 Cell/uL F 0.0-700.0 Leukocytes [#/volume] in Blood by Automated count 2023-11-26 15:09:17 4.2 x 10^3 cells/uL F 4.0-11.0 Lymphocytes [#/volume] in Blood by Automated count 2023-11-26 15:09:17 1143 Cell/uL F 620.0-3660.0 Monocytes/100 leukocytes in Blood by Automated count 2023-10-21 22:00:22 9 % F Basophils/100 leukocytes in Blood by Automated count 2023-10-21 22:00:22 1.2 % F Lymphocytes/100 leukocytes in Blood by Automated count 2023-10-21 22:00:22 20.8 % F Eosinophils/100 leukocytes in Blood by Automated count 2023-10-21 22:00:22 5.5 % F Neutrophils/100 leukocytes in Blood by Automated count 2023-10-21 22:00:22 63.5 % F Monocytes [#/volume] in Blood by Automated count 2023-10-21 22:00:22 476 Cell/uL F 0.0-1100.0 Basophils [#/volume] in Blood by Automated count 2023-10-21 22:00:22 63 Cell/uL F 0.0-400.0 Eosinophils [#/volume] in Blood by Automated count 2023-10-21 22:00:22 291 Cell/uL F 0.0-700.0 Neutrophils [#/volume] in Blood by Automated count 2023-10-21 22:00:22 3359 Cell/uL F 2000.0-8800. 0 Leukocytes [#/volume] in Blood by Automated count 2023-10-21 22:00:22 5.3 x 10^3 cells/uL F 4.0-11.0 Lymphocytes [#/volume] in Blood by Automated count 2023-10-21 22:00:22 1100 Cell/uL F 620.0-3660.0 Neutrophils/100 leukocytes in Blood by Automated count 2023-09-23 21:05:30 65.5 % F Monocytes/100 leukocytes in Blood by Automated count 2023-09-23 21:05:30 7.7 % F Lymphocytes/100 leukocytes in Blood by Automated count 2023-09-23 21:05:30 22.1 % F Basophils/100 leukocytes in Blood by Automated count 2023-09-23 21:05:30 0.5 % F Eosinophils/100 leukocytes in Blood by Automated count 2023-09-23 21:05:30 4.1 % F Monocytes [#/volume] in Blood by Automated count 2023-09-23 21:05:30 479 Cell/uL F 0.0-1100.0 Basophils [#/volume] in Blood by Automated count 2023-09-23 21:05:30 31 Cell/uL F 0.0-400.0 Eosinophils [#/volume] in Blood by Automated count 2023-09-23 21:05:30 255 Cell/uL F 0.0-700.0 Neutrophils [#/volume] in Blood by Automated count 2023-09-23 21:05:30 4074 Cell/uL F 2000.0-8800. 0 Leukocytes [#/volume] in Blood by Automated count 2023-09-23 21:05:30 6.2 x 10^3 cells/uL F 4.0-11.0 Lymphocytes [#/volume] in Blood by Automated count 2023-09-23 21:05:30 1375 Cell/uL F 620.0-3660.0 Monocytes/100 leukocytes in Blood by Automated count 2023-08-20 01:51:37 9.3 % F Eosinophils/100 leukocytes in Blood by Automated count 2023-08-20 01:51:37 8.5 % F Neutrophils/100 leukocytes in Blood by Automated count 2023-08-20 01:51:37 62 % F Basophils/100 leukocytes in Blood by Automated count 2023-08-20 01:51:37 1 % F Lymphocytes/100 leukocytes in Blood by Automated count 2023-08-20 01:51:37 19.2 % F Monocytes [#/volume] in Blood by Automated count 2023-08-20 01:51:37 512 Cell/uL F 0.0-1100.0 Basophils [#/volume] in Blood by Automated count 2023-08-20 01:51:37 55 Cell/uL F 0.0-400.0 Eosinophils [#/volume] in Blood by Automated count 2023-08-20 01:51:37 468 Cell/uL F 0.0-700.0 Neutrophils [#/volume] in Blood by Automated count 2023-08-20 01:51:37 3410 Cell/uL F 2000.0-8800. 0 Leukocytes [#/volume] in Blood by Automated count 2023-08-20 01:51:37 5.5 x 10^3 cells/uL F 4.0-11.0 Lymphocytes [#/volume] in Blood by Automated count 2023-08-20 01:51:37 1056 Cell/uL F 620.0-3660.0 Basophils/100 leukocytes in Blood by Automated count 2023-07-22 22:55:35 0.8 % F Lymphocytes/100 leukocytes in Blood by Automated count 2023-07-22 22:55:35 19 % F Neutrophils/100 leukocytes in Blood by Automated count 2023-07-22 22:55:35 65.3 % F Monocytes/100 leukocytes in Blood by Automated count 2023-07-22 22:55:35 9.1 % F Eosinophils/100 leukocytes in Blood by Automated count 2023-07-22 22:55:35 5.9 % F Monocytes [#/volume] in Blood by Automated count 2023-07-22 22:55:35 572 Cell/uL F 0.0-1100.0 Basophils [#/volume] in Blood by Automated count 2023-07-22 22:55:35 50 Cell/uL F 0.0-400.0 Eosinophils [#/volume] in Blood by Automated count 2023-07-22 22:55:35 371 Cell/uL F 0.0-700.0 Neutrophils [#/volume] in Blood by Automated count 2023-07-22 22:55:35 4107 Cell/uL F 2000.0-8800. 0 Leukocytes [#/volume] in Blood by Automated count 2023-07-22 22:55:35 6.3 x 10^3 cells/uL F 4.0-11.0 Lymphocytes [#/volume] in Blood by Automated count 2023-07-22 22:55:35 1195 Cell/uL F 620.0-3660.0 Eosinophils/100 leukocytes in Blood by Automated count 2023-06-24 19:01:43 7.5 % F Lymphocytes/100 leukocytes in Blood by Automated count 2023-06-24 19:01:43 20.6 % F Neutrophils/100 leukocytes in Blood by Automated count 2023-06-24 19:01:43 61.2 % F Monocytes/100 leukocytes in Blood by Automated count 2023-06-24 19:01:43 9.8 % F Basophils/100 leukocytes in Blood by Automated count 2023-06-24 19:01:43 0.8 % F Monocytes [#/volume] in Blood by Automated count 2023-06-24 19:01:43 573 Cell/uL F 0.0-1100.0 Basophils [#/volume] in Blood by Automated count 2023-06-24 19:01:43 47 Cell/uL F 0.0-400.0 Eosinophils [#/volume] in Blood by Automated count 2023-06-24 19:01:43 439 Cell/uL F 0.0-700.0 Neutrophils [#/volume] in Blood by Automated count 2023-06-24 19:01:43 3580 Cell/uL F 2000.0-8800. 0 Leukocytes [#/volume] in Blood by Automated count 2023-06-24 19:01:43 5.8 x 10^3 cells/uL F 4.0-11.0 Lymphocytes [#/volume] in Blood by Automated count 2023-06-24 19:01:43 1205 Cell/uL F 620.0-3660.0 Neutrophils/100 leukocytes in Blood by Automated count 2023-05-20 20:55:32 59.4 % F Eosinophils/100 leukocytes in Blood by Automated count 2023-05-20 20:55:32 8.1 % F Basophils/100 leukocytes in Blood by Automated count 2023-05-20 20:55:32 1.1 % F Monocytes/100 leukocytes in Blood by Automated count 2023-05-20 20:55:32 10.5 % F Lymphocytes/100 leukocytes in Blood by Automated count 2023-05-20 20:55:32 20.8 % F Monocytes [#/volume] in Blood by Automated count 2023-05-20 20:55:32 597 Cell/uL F 0.0-1100.0 Basophils [#/volume] in Blood by Automated count 2023-05-20 20:55:32 63 Cell/uL F 0.0-400.0 Eosinophils [#/volume] in Blood by Automated count 2023-05-20 20:55:32 461 Cell/uL F 0.0-700.0 Neutrophils [#/volume] in Blood by Automated count 2023-05-20 20:55:32 3380 Cell/uL F 2000.0-8800. 0 Leukocytes [#/volume] in Blood by Automated count 2023-05-20 20:55:32 5.7 x 10^3 cells/uL F 4.0-11.0 Lymphocytes [#/volume] in Blood by Automated count 2023-05-20 20:55:32 1184 Cell/uL F 620.0-3660.0 Monocytes/100 leukocytes in Blood by Automated count 2023-04-23 05:15:34 8.1 % F Eosinophils/100 leukocytes in Blood by Automated count 2023-04-23 05:15:34 4.7 % F Lymphocytes/100 leukocytes in Blood by Automated count 2023-04-23 05:15:34 11 % F Basophils/100 leukocytes in Blood by Automated count 2023-04-23 05:15:34 0.5 % F Neutrophils/100 leukocytes in Blood by Automated count 2023-04-23 05:15:34 75.8 % F Monocytes [#/volume] in Blood by Automated count 2023-04-23 05:15:34 827 Cell/uL F 0.0-1100.0 Basophils [#/volume] in Blood by Automated count 2023-04-23 05:15:34 51 Cell/uL F 0.0-400.0 Eosinophils [#/volume] in Blood by Automated count 2023-04-23 05:15:34 480 Cell/uL F 0.0-700.0 Neutrophils [#/volume] in Blood by Automated count 2023-04-23 05:15:34 7739 Cell/uL F 2000.0-8800. 0 Leukocytes [#/volume] in Blood by Automated count 2023-04-23 05:15:34 10.2 x 10^3 cells/uL F 4.0-11.0 Lymphocytes [#/volume] in Blood by Automated count 2023-04-23 05:15:34 1123 Cell/uL F 620.0-3660.0 Eosinophils/100 leukocytes in Blood by Automated count 2023-03-26 00:20:26 6.9 % F Neutrophils/100 leukocytes in Blood by Automated count 2023-03-26 00:20:26 67 % F Lymphocytes/100 leukocytes in Blood by Automated count 2023-03-26 00:20:26 18.1 % F Monocytes/100 leukocytes in Blood by Automated count 2023-03-26 00:20:26 7.4 % F Basophils/100 leukocytes in Blood by Automated count 2023-03-26 00:20:26 0.5 % F Monocytes [#/volume] in Blood by Automated count 2023-03-26 00:20:26 531 Cell/uL F 0.0-1100.0 Eosinophils [#/volume] in Blood by Automated count 2023-03-26 00:20:26 495 Cell/uL F 0.0-700.0 Basophils [#/volume] in Blood by Automated count 2023-03-26 00:20:26 36 Cell/uL F 0.0-400.0 Neutrophils [#/volume] in Blood by Automated count 2023-03-26 00:20:26 4804 Cell/uL F 2000.0-8800. 0 Leukocytes [#/volume] in Blood by Automated count 2023-03-26 00:20:26 7.2 x 10^3 cells/uL F 4.0-11.0 Lymphocytes [#/volume] in Blood by Automated count 2023-03-26 00:20:26 1298 Cell/uL F 620.0-3660.0 Neutrophils/100 leukocytes in Blood by Automated count 2023-02-19 21:30:52 62 % F Lymphocytes/100 leukocytes in Blood by Automated count 2023-02-19 21:30:52 19.5 % F Eosinophils/100 leukocytes in Blood by Automated count 2023-02-19 21:30:52 4.4 % F Monocytes/100 leukocytes in Blood by Automated count 2023-02-19 21:30:52 13.2 % F Basophils/100 leukocytes in Blood by Automated count 2023-02-19 21:30:52 0.9 % F Monocytes [#/volume] in Blood by Automated count 2023-02-19 21:30:52 788 Cell/uL F 0.0-1100.0 Basophils [#/volume] in Blood by Automated count 2023-02-19 21:30:52 54 Cell/uL F 0.0-400.0 Eosinophils [#/volume] in Blood by Automated count 2023-02-19 21:30:52 263 Cell/uL F 0.0-700.0 Neutrophils [#/volume] in Blood by Automated count 2023-02-19 21:30:52 3701 Cell/uL F 2000.0-8800. 0 Lymphocytes [#/volume] in Blood by Automated count 2023-02-19 21:30:52 1164 Cell/uL F 620.0-3660.0 Leukocytes [#/volume] in Blood by Automated count 2023-02-19 21:30:52 6 x 10^3 cells/uL F 4.0-11.0 Neutrophils/100 leukocytes in Blood by Automated count 2023-01-21 20:50:39 88.4 % F Lymphocytes/100 leukocytes in Blood by Automated count 2023-01-21 20:50:39 5.3 % F Basophils/100 leukocytes in Blood by Automated count 2023-01-21 20:50:39 0.4 % F Eosinophils/100 leukocytes in Blood by Automated count 2023-01-21 20:50:39 0.7 % F Monocytes/100 leukocytes in Blood by Automated count 2023-01-21 20:50:39 5.2 % F Basophils [#/volume] in Blood by Automated count 2023-01-21 20:50:39 68 Cell/uL F 0.0-400.0 Eosinophils [#/volume] in Blood by Automated count 2023-01-21 20:50:39 120 Cell/uL F 0.0-700.0 Monocytes [#/volume] in Blood by Automated count 2023-01-21 20:50:39 890 Cell/uL F 0.0-1100.0 Neutrophils [#/volume] in Blood by Automated count 2023-01-21 20:50:39 41004 Cell/uL F 2000.0-8800. 0 Leukocytes [#/volume] in Blood by Automated count 2023-01-21 20:50:39 17.1 x 10^3 cells/uL F 4.0-11.0 Lymphocytes [#/volume] in Blood by Automated count 2023-01-21 20:50:39 907 Cell/uL F 620.0-3660.0 Basophils/100 leukocytes in Blood by Automated count 2022-12-24 22:23:36 0.6 % F Monocytes/100 leukocytes in Blood by Automated count 2022-12-24 22:23:36 10.7 % F Neutrophils/100 leukocytes in Blood by Automated count 2022-12-24 22:23:36 65.4 % F Eosinophils/100 leukocytes in Blood by Automated count 2022-12-24 22:23:36 4.3 % F Lymphocytes/100 leukocytes in Blood by Automated count 2022-12-24 22:23:36 19.1 % F Monocytes [#/volume] in Blood by Automated count 2022-12-24 22:23:36 468 Cell/uL F 0.0-1100.0 Basophils [#/volume] in Blood by Automated count 2022-12-24 22:23:36 26 Cell/uL F 0.0-400.0 Eosinophils [#/volume] in Blood by Automated count 2022-12-24 22:23:36 188 Cell/uL F 0.0-700.0 Neutrophils [#/volume] in Blood by Automated count 2022-12-24 22:23:36 2858 Cell/uL F 2000.0-8800. 0 Leukocytes [#/volume] in Blood by Automated count 2022-12-24 22:23:36 4.4 x 10^3 cells/uL F 4.0-11.0 Lymphocytes [#/volume] in Blood by Automated count 2022-12-24 22:23:36 835 Cell/uL F 620.0-3660.0 Lymphocytes/100 leukocytes in Blood by Automated count 2022-11-19 16:20:38 18.4 % F Eosinophils/100 leukocytes in Blood by Automated count 2022-11-19 16:20:38 6 % F Basophils/100 leukocytes in Blood by Automated count 2022-11-19 16:20:38 0.2 % F Monocytes [#/volume] in Blood by Automated count 2022-11-19 16:20:38 538 Cell/uL F 0.0-1100.0 Basophils [#/volume] in Blood by Automated count 2022-11-19 16:20:38 13 Cell/uL F 0.0-400.0 Eosinophils [#/volume] in Blood by Automated count 2022-11-19 16:20:38 398 Cell/uL F 0.0-700.0 Neutrophils [#/volume] in Blood by Automated count 2022-11-19 16:20:38 4475 Cell/uL F 2000.0-8800. 0 Leukocytes [#/volume] in Blood by Automated count 2022-11-19 16:20:38 6.6 x 10^3 cells/uL F 4.0-11.0 Lymphocytes [#/volume] in Blood by Automated count 2022-11-19 16:20:38 1222 Cell/uL F 620.0-3660.0 Monocytes/100 leukocytes in Blood by Automated count 2022-11-19 16:20:38 8.1 % F Neutrophils/100 leukocytes in Blood by Automated count 2022-11-19 16:20:36 67.4 % F Basophils/100 leukocytes in Blood by Automated count 2022-10-22 21:18:37 0.4 % F Neutrophils/100 leukocytes in Blood by Automated count 2022-10-22 21:18:37 72.3 % F Eosinophils/100 leukocytes in Blood by Automated count 2022-10-22 21:18:37 5.8 % F Monocytes/100 leukocytes in Blood by Automated count 2022-10-22 21:18:37 7.4 % F Lymphocytes/100 leukocytes in Blood by Automated count 2022-10-22 21:18:37 14.1 % F Monocytes [#/volume] in Blood by Automated count 2022-10-22 21:18:37 687 Cell/uL F 0.0-1100.0 Basophils [#/volume] in Blood by Automated count 2022-10-22 21:18:37 37 Cell/uL F 0.0-400.0 Eosinophils [#/volume] in Blood by Automated count 2022-10-22 21:18:37 538 Cell/uL F 0.0-700.0 Neutrophils [#/volume] in Blood by Automated count 2022-10-22 21:18:37 6709 Cell/uL F 2000.0-8800. 0 Leukocytes [#/volume] in Blood by Automated count 2022-10-22 21:18:37 9.3 x 10^3 cells/uL F 4.0-11.0 Lymphocytes [#/volume] in Blood by Automated count 2022-10-22 21:18:37 1308 Cell/uL F 620.0-3660.0 Neutrophils/100 leukocytes in Blood by Automated count 2022-09-25 16:17:38 72.2 % F Basophils/100 leukocytes in Blood by Automated count 2022-09-25 16:17:36 0.3 % F Eosinophils/100 leukocytes in Blood by Automated count 2022-09-25 16:17:36 4.1 % F Monocytes/100 leukocytes in Blood by Automated count 2022-09-25 16:17:36 7.6 % F Lymphocytes/100 leukocytes in Blood by Automated count 2022-09-25 16:17:36 15.7 % F Monocytes [#/volume] in Blood by Automated count 2022-09-25 16:17:36 602 Cell/uL F 0.0-1100.0 Basophils [#/volume] in Blood by Automated count 2022-09-25 16:17:36 24 Cell/uL F 0.0-400.0 Eosinophils [#/volume] in Blood by Automated count 2022-09-25 16:17:36 325 Cell/uL F 0.0-700.0 Neutrophils [#/volume] in Blood by Automated count 2022-09-25 16:17:36 5718 Cell/uL F 2000.0-8800. 0 Leukocytes [#/volume] in Blood by Automated count 2022-09-25 16:17:36 7.9 x 10^3 cells/uL F 4.0-11.0 Lymphocytes [#/volume] in Blood by Automated count 2022-09-25 16:17:36 1243 Cell/uL F 620.0-3660.0 Basophils/100 leukocytes in Blood by Automated count 2022-08-22 02:59:27 1.5 % F Monocytes/100 leukocytes in Blood by Automated count 2022-08-22 02:59:27 9.4 % F Eosinophils/100 leukocytes in Blood by Automated count 2022-08-22 02:59:27 6.6 % F Basophils [#/volume] in Blood by Automated count 2022-08-22 02:59:27 88 Cell/uL F 0.0-400.0 Lymphocytes [#/volume] in Blood by Automated count 2022-08-22 02:59:27 1058 Cell/uL F 620.0-3660.0 Neutrophils/100 leukocytes in Blood by Automated count 2022-08-22 02:59:25 64.5 % F Lymphocytes/100 leukocytes in Blood by Automated count 2022-08-22 02:59:25 18 % F Monocytes [#/volume] in Blood by Automated count 2022-08-22 02:59:25 553 Cell/uL F 0.0-1100.0 Eosinophils [#/volume] in Blood by Automated count 2022-08-22 02:59:25 388 Cell/uL F 0.0-700.0 Neutrophils [#/volume] in Blood by Automated count 2022-08-22 02:59:25 3793 Cell/uL F 2000.0-8800. 0 Leukocytes [#/volume] in Blood by Automated count 2022-08-22 02:59:25 5.9 x 10^3 cells/uL F 4.0-11.0 Neutrophils/100 leukocytes in Blood by Automated count 2022-07-24 16:19:16 71.7 % F Eosinophils/100 leukocytes in Blood by Automated count 2022-07-24 16:19:14 5.3 % F Basophils/100 leukocytes in Blood by Automated count 2022-07-24 16:19:14 0.2 % F Lymphocytes/100 leukocytes in Blood by Automated count 2022-07-24 16:19:14 15.3 % F Monocytes/100 leukocytes in Blood by Automated count 2022-07-24 16:19:14 7.5 % F Monocytes [#/volume] in Blood by Automated count 2022-07-24 16:19:14 558.75 Cell/uL F 0.0-1100.0 Basophils [#/volume] in Blood by Automated count 2022-07-24 16:19:14 14.9 Cell/uL F 0.0-400.0 Eosinophils [#/volume] in Blood by Automated count 2022-07-24 16:19:14 394.85 Cell/uL F 0.0-700.0 Neutrophils [#/volume] in Blood by Automated count 2022-07-24 16:19:14 5341.65 Cell/uL F 2000.0-8800. 0 Leukocytes [#/volume] in Blood by Automated count 2022-07-24 16:19:14 7.4 x 10^3 cells/uL F 4.0-11.0 Lymphocytes [#/volume] in Blood by Automated count 2022-07-24 16:19:14 1139.85 Cell/uL F 620.0-3660.0 Eosinophils/100 leukocytes in Blood by Automated count 2022-06-19 18:09:21 5.3 % F Basophils/100 leukocytes in Blood by Automated count 2022-06-19 18:09:21 0.3 % F Neutrophils/100 leukocytes in Blood by Automated count 2022-06-19 18:09:21 72.7 % F Lymphocytes/100 leukocytes in Blood by Automated count 2022-06-19 18:09:21 14.9 % F Monocytes/100 leukocytes in Blood by Automated count 2022-06-19 18:09:21 6.7 % F Monocytes [#/volume] in Blood by Automated count 2022-06-19 18:09:21 506.52 Cell/uL F 0.0-1100.0 Eosinophils [#/volume] in Blood by Automated count 2022-06-19 18:09:21 400.68 Cell/uL F 0.0-700.0 Basophils [#/volume] in Blood by Automated count 2022-06-19 18:09:21 22.68 Cell/uL F 0.0-400.0 Lymphocytes [#/volume] in Blood by Automated count 2022-06-19 18:09:21 1126.44 Cell/uL F 1100.0-4800. 0 Neutrophils [#/volume] in Blood by Automated count 2022-06-19 18:09:21 5496.12 Cell/uL F 2000.0-8800. 0 Leukocytes [#/volume] in Blood by Automated count 2022-06-19 18:09:21 7.6 x 10^3 cells/uL F 4.5-11.0 Monocytes/100 leukocytes in Blood by Automated count 2022-05-16 01:35:15 8.6 % F Eosinophils/100 leukocytes in Blood by Automated count 2022-05-16 01:35:15 8 % F Neutrophils/100 leukocytes in Blood by Automated count 2022-05-16 01:35:15 66.4 % F Lymphocytes/100 leukocytes in Blood by Automated count 2022-05-16 01:35:15 16.2 % F Basophils/100 leukocytes in Blood by Automated count 2022-05-16 01:35:15 0.8 % F Monocytes [#/volume] in Blood by Automated count 2022-05-16 01:35:15 537.5 Cell/uL F 0.0-1100.0 Basophils [#/volume] in Blood by Automated count 2022-05-16 01:35:15 50 Cell/uL F 0.0-400.0 Eosinophils [#/volume] in Blood by Automated count 2022-05-16 01:35:15 500 Cell/uL F 0.0-700.0 Lymphocytes [#/volume] in Blood by Automated count 2022-05-16 01:35:15 1012.5 Cell/uL F 1100.0-4800. 0 Neutrophils [#/volume] in Blood by Automated count 2022-05-16 01:35:15 4150 Cell/uL F 2000.0-8800. 0 Leukocytes [#/volume] in Blood by Automated count 2022-05-16 01:35:15 6.2 x 10^3 cells/uL F 4.5-11.0 Eosinophils/100 leukocytes in Blood by Automated count 2022-04-24 23:28:15 4.4 % F Basophils/100 leukocytes in Blood by Automated count 2022-04-24 23:28:15 0.3 % F Lymphocytes/100 leukocytes in Blood by Automated count 2022-04-24 23:28:15 16 % F Monocytes/100 leukocytes in Blood by Automated count 2022-04-24 23:28:15 6.7 % F Monocytes [#/volume] in Blood by Automated count 2022-04-24 23:28:15 417.41 Cell/uL F 0.0-1100.0 Basophils [#/volume] in Blood by Automated count 2022-04-24 23:28:15 18.69 Cell/uL F 0.0-400.0 Eosinophils [#/volume] in Blood by Automated count 2022-04-24 23:28:15 274.12 Cell/uL F 0.0-700.0 Lymphocytes [#/volume] in Blood by Automated count 2022-04-24 23:28:15 996.8 Cell/uL F 1100.0-4800. 0 Neutrophils [#/volume] in Blood by Automated count 2022-04-24 23:28:15 4522.98 Cell/uL F 2000.0-8800. 0 Neutrophils/100 leukocytes in Blood by Automated count 2022-04-24 23:28:13 72.6 % F Leukocytes [#/volume] in Blood by Automated count 2022-04-24 23:28:13 6.2 x 10^3 cells/uL F 4.5-11.0 Neutrophils/100 leukocytes in Blood by Automated count 2022-03-26 20:59:49 83.9 % F Lymphocytes/100 leukocytes in Blood by Automated count 2022-03-26 20:59:49 5.9 % F Monocytes/100 leukocytes in Blood by Automated count 2022-03-26 20:59:49 7.1 % F Eosinophils/100 leukocytes in Blood by Automated count 2022-03-26 20:59:49 2.7 % F Basophils/100 leukocytes in Blood by Automated count 2022-03-26 20:59:49 0.5 % F Monocytes [#/volume] in Blood by Automated count 2022-03-26 20:59:49 716.39 Cell/uL F 0.0-1100.0 Basophils [#/volume] in Blood by Automated count 2022-03-26 20:59:49 50.45 Cell/uL F 0.0-400.0 Eosinophils [#/volume] in Blood by Automated count 2022-03-26 20:59:49 272.43 Cell/uL F 0.0-700.0 Lymphocytes [#/volume] in Blood by Automated count 2022-03-26 20:59:49 595.31 Cell/uL F 1100.0-4800. 0 Neutrophils [#/volume] in Blood by Automated count 2022-03-26 20:59:49 8465.51 Cell/uL F 2000.0-8800. 0 Leukocytes [#/volume] in Blood by Automated count 2022-03-26 20:59:49 10.1 x 10^3 cells/uL F 4.5-11.0 MineralBone Disorder Description Draw Date Result/Unit Status Ref Range Result Comments CA CORRECTED 2024-07-21 04:49:59 8.5 mg/dL F CA*PO4 CORRCTD 2024-07-21 04:48:15 57.9 Calc F 21.0-53.0 CA/PHOS PRODUCT 2024-07-21 04:48:15 55.8 Calc F 21.0-53.0 Calcium [Mass/volume] in Serum or Plasma 2024-07-21 04:46:13 8.2 mg/dL F 8.7-10.4 Phosphate [Mass/volume] in Serum or Plasma 2024-07-21 04:30:15 6.8 mg/dL F 2.4-5.1 Alkaline phosphatase [Enzymatic activity/volume] in Serum or Plasma 2024-07-21 04:30:15 189 U/L F 46.0-116.0 Parathyrin.intact [Mass/volume] in Serum or Plasma 2024-07-21 02:32:20 746 pg/mL F 18.0-80.0 CA CORRECTED 2024-07-07 07:23:03 7.5 mg/dL F Calcium [Mass/volume] in Serum or Plasma 2024-07-07 07:15:39 7.3 mg/dL F 8.7-10.4 Parathyrin.intact [Mass/volume] in Serum or Plasma 2024-06-30 05:06:18 1139 pg/mL F 18.0-80.0 Alkaline phosphatase [Enzymatic activity/volume] in Serum or Plasma 2024-06-22 13:54:16 196 U/L F 46.0-116.0 CA CORRECTED 2024-06-14 20:45:51 7.6 mg/dL F CA/PHOS PRODUCT 2024-06-14 20:34:19 72 Calc F 21.0-53.0 CA*PO4 CORRCTD 2024-06-14 20:34:19 76 Calc F 21.0-53.0 Calcium [Mass/volume] in Serum or Plasma 2024-06-14 20:32:18 7.2 mg/dL F 8.7-10.4 Phosphate [Mass/volume] in Serum or Plasma 2024-06-14 20:32:05 10 mg/dL F 2.4-5.1 Alkaline phosphatase [Enzymatic activity/volume] in Serum or Plasma 2024-06-14 15:03:28 170 U/L F 46.0-116.0 Parathyrin.intact [Mass/volume] in Serum or Plasma 2024-06-14 14:41:54 F CANCELED - TEST CANCELED CA CORRECTED 2024-05-19 00:54:18 7.6 mg/dL F Calcium [Mass/volume] in Serum or Plasma 2024-05-19 00:46:14 7.3 mg/dL F 8.7-10.4 CA CORRECTED 2024-04-21 07:25:20 7.9 mg/dL F CA*PO4 CORRCTD 2024-04-21 07:22:29 68.9 Calc F 21.0-53.0 CA/PHOS PRODUCT 2024-04-21 07:22:29 66.1 Calc F 21.0-53.0 Calcium [Mass/volume] in Serum or Plasma 2024-04-21 07:07:54 7.6 mg/dL F 8.7-10.4 Phosphate [Mass/volume] in Serum or Plasma 2024-04-21 07:04:54 8.7 mg/dL F 2.4-5.1 Alkaline phosphatase [Enzymatic activity/volume] in Serum or Plasma 2024-04-20 19:25:21 158 U/L F 46.0-116.0 Parathyrin.intact [Mass/volume] in Serum or Plasma 2024-04-20 18:30:17 1212 pg/mL F 18.0-80.0 CA CORRECTED 2024-03-24 09:18:59 7.2 mg/dL F CA/PHOS PRODUCT 2024-03-24 09:17:14 75.6 Calc F 21.0-53.0 CA*PO4 CORRCTD 2024-03-24 09:17:14 77.3 Calc F 21.0-53.0 Phosphate [Mass/volume] in Serum or Plasma 2024-03-24 07:01:58 10.8 mg/dL F 2.4-5.1 Calcium [Mass/volume] in Serum or Plasma 2024-03-24 07:01:58 7 mg/dL F 8.7-10.4 Parathyrin.intact [Mass/volume] in Serum or Plasma 2024-03-23 16:10:24 1646 pg/mL F 18.0-80.0 Alkaline phosphatase [Enzymatic activity/volume] in Serum or Plasma 2024-03-23 14:37:25 172 U/L F 46.0-116.0 CA CORRECTED 2024-03-02 20:39:56 7.2 mg/dL F Calcium [Mass/volume] in Serum or Plasma 2024-03-02 19:14:41 7 mg/dL F 8.7-10.4 CA CORRECTED 2023-12-24 08:27:05 7.9 mg/dL F CA/PHOS PRODUCT 2023-12-24 08:26:13 64.5 Calc F 21.0-53.0 CA*PO4 CORRCTD 2023-12-24 08:26:13 67.9 Calc F 21.0-53.0 25-Hydroxyvitamin D3+25-Hydroxyvitamin D2 [Mass/volume] in Serum or Plasma 2023-12-24 08:13:13 23 ng/mL F Parathyrin.intact [Mass/volume] in Serum or Plasma 2023-12-24 08:09:19 1097 pg/mL F 18.0-80.0 Calcium [Mass/volume] in Serum or Plasma 2023-12-24 07:50:25 7.5 mg/dL F 8.7-10.4 Phosphate [Mass/volume] in Serum or Plasma 2023-12-23 23:32:26 8.6 mg/dL F 2.4-5.1 Alkaline phosphatase [Enzymatic activity/volume] in Serum or Plasma 2023-12-23 23:32:26 163 U/L F 46.0-116.0 Parathyrin.intact [Mass/volume] in Serum or Plasma 2023-11-26 16:46:24 861 pg/mL F 18.0-80.0 CA CORRECTED 2023-11-26 09:21:11 8.4 mg/dL F CA/PHOS PRODUCT 2023-11-26 07:42:06 64.8 Calc F 21.0-53.0 CA*PO4 CORRCTD 2023-11-26 07:42:06 68 Calc F 21.0-53.0 Calcium [Mass/volume] in Serum or Plasma 2023-11-26 07:17:11 8 mg/dL F 8.7-10.4 Phosphate [Mass/volume] in Serum or Plasma 2023-11-26 04:47:31 8.1 mg/dL F 2.4-5.1 Alkaline phosphatase [Enzymatic activity/volume] in Serum or Plasma 2023-11-26 04:47:31 158 U/L F 46.0-116.0 CA CORRECTED 2023-11-05 05:26:38 7.4 mg/dL F Calcium [Mass/volume] in Serum or Plasma 2023-11-05 05:04:40 6.9 mg/dL F 8.7-10.4 CA CORRECTED 2023-10-22 06:42:24 7.6 mg/dL F CA/PHOS PRODUCT 2023-10-22 06:37:49 68.2 Calc F 21.0-53.0 CA*PO4 CORRCTD 2023-10-22 06:37:49 73 Calc F 21.0-53.0 Calcium [Mass/volume] in Serum or Plasma 2023-10-22 06:35:44 7.1 mg/dL F 8.7-10.4 Parathyrin.intact [Mass/volume] in Serum or Plasma 2023-10-22 04:32:50 1061 pg/mL F 18.0-80.0 Phosphate [Mass/volume] in Serum or Plasma 2023-10-21 18:53:15 9.6 mg/dL F 2.4-5.1 Alkaline phosphatase [Enzymatic activity/volume] in Serum or Plasma 2023-10-21 18:53:15 141 U/L F 46.0-116.0 CA CORRECTED 2023-09-24 11:24:20 8.3 mg/dL F CA/PHOS PRODUCT 2023-09-24 07:00:53 56.2 Calc F 21.0-53.0 CA*PO4 CORRCTD 2023-09-24 07:00:53 60.6 Calc F 21.0-53.0 Calcium [Mass/volume] in Serum or Plasma 2023-09-24 06:50:00 7.7 mg/dL F 8.7-10.4 Parathyrin.intact [Mass/volume] in Serum or Plasma 2023-09-23 23:46:39 866 pg/mL F 18.0-80.0 Phosphate [Mass/volume] in Serum or Plasma 2023-09-23 20:27:28 7.3 mg/dL F 2.4-5.1 Alkaline phosphatase [Enzymatic activity/volume] in Serum or Plasma 2023-09-23 20:27:28 108 U/L F 46.0-116.0 Parathyrin.intact [Mass/volume] in Serum or Plasma 2023-08-20 19:00:33 1048 pg/mL F 18.0-80.0 CA CORRECTED 2023-08-20 08:08:54 7.7 mg/dL F CA/PHOS PRODUCT 2023-08-20 07:48:20 66.6 Calc F 21.0-53.0 CA*PO4 CORRCTD 2023-08-20 07:48:20 69.3 Calc F 21.0-53.0 Calcium [Mass/volume] in Serum or Plasma 2023-08-20 07:34:36 7.4 mg/dL F 8.7-10.4 Phosphate [Mass/volume] in Serum or Plasma 2023-08-20 06:08:31 9 mg/dL F 2.4-5.1 Alkaline phosphatase [Enzymatic activity/volume] in Serum or Plasma 2023-08-20 06:08:31 136 U/L F 46.0-116.0 Parathyrin.intact [Mass/volume] in Serum or Plasma 2023-07-23 07:24:44 1022 pg/mL F 18.0-80.0 CA CORRECTED 2023-07-23 06:56:22 7.9 mg/dL F CA*PO4 CORRCTD 2023-07-23 06:50:45 82.2 Calc F 21.0-53.0 CA/PHOS PRODUCT 2023-07-23 06:50:45 80.1 Calc F 21.0-53.0 Calcium [Mass/volume] in Serum or Plasma 2023-07-23 06:43:26 7.7 mg/dL F 8.7-10.4 Phosphate [Mass/volume] in Serum or Plasma 2023-07-23 01:21:39 10.4 mg/dL F 2.4-5.1 Alkaline phosphatase [Enzymatic activity/volume] in Serum or Plasma 2023-07-23 01:21:39 155 U/L F 46.0-116.0 Parathyrin.intact [Mass/volume] in Serum or Plasma 2023-06-25 05:44:03 832 pg/mL F 18.0-80.0 25-Hydroxyvitamin D3+25-Hydroxyvitamin D2 [Mass/volume] in Serum or Plasma 2023-06-25 05:43:42 29.6 ng/mL F CA CORRECTED 2023-06-25 05:37:54 8.1 mg/dL F CA/PHOS PRODUCT 2023-06-25 05:35:33 74.9 Calc F 21.0-53.0 CA*PO4 CORRCTD 2023-06-25 05:35:33 77.8 Calc F 21.0-53.0 Calcium [Mass/volume] in Serum or Plasma 2023-06-25 05:34:10 7.8 mg/dL F 8.7-10.4 Phosphate [Mass/volume] in Serum or Plasma 2023-06-24 16:30:40 9.6 mg/dL F 2.4-5.1 Alkaline phosphatase [Enzymatic activity/volume] in Serum or Plasma 2023-06-24 16:30:40 143 U/L F 46.0-116.0 CA CORRECTED 2023-05-21 07:32:41 8.1 mg/dL F CA*PO4 CORRCTD 2023-05-21 07:10:01 88.3 Calc F 21.0-53.0 CA/PHOS PRODUCT 2023-05-21 07:10:01 88.3 Calc F 21.0-53.0 Calcium [Mass/volume] in Serum or Plasma 2023-05-21 07:03:41 8.1 mg/dL F 8.7-10.4 Parathyrin.intact [Mass/volume] in Serum or Plasma 2023-05-21 03:52:14 830 pg/mL F 18.0-80.0 Phosphate [Mass/volume] in Serum or Plasma 2023-05-20 15:30:40 10.9 mg/dL F 2.4-5.1 Alkaline phosphatase [Enzymatic activity/volume] in Serum or Plasma 2023-05-20 15:30:40 131 U/L F 46.0-116.0 Parathyrin.intact [Mass/volume] in Serum or Plasma 2023-04-24 06:48:08 892 pg/mL F 18.0-80.0 CA CORRECTED 2023-04-23 07:46:25 8.1 mg/dL F CA*PO4 CORRCTD 2023-04-23 07:23:43 95.6 Calc F 21.0-53.0 CA/PHOS PRODUCT 2023-04-23 07:23:43 93.2 Calc F 21.0-53.0 Calcium [Mass/volume] in Serum or Plasma 2023-04-23 07:06:34 7.9 mg/dL F 8.7-10.4 Phosphate [Mass/volume] in Serum or Plasma 2023-04-23 03:21:38 11.8 mg/dL F 2.4-5.1 Alkaline phosphatase [Enzymatic activity/volume] in Serum or Plasma 2023-04-23 03:21:38 128 U/L F 46.0-116.0 Parathyrin.intact [Mass/volume] in Serum or Plasma 2023-03-26 08:11:47 1210 pg/mL F 18.0-80.0 CA CORRECTED 2023-03-26 07:37:48 7.5 mg/dL F CA/PHOS PRODUCT 2023-03-26 07:35:37 104.3 Calc F 21.0-53.0 CA*PO4 CORRCTD 2023-03-26 07:35:37 105.8 Calc F 21.0-53.0 Calcium [Mass/volume] in Serum or Plasma 2023-03-26 07:30:51 7.4 mg/dL F 8.7-10.4 Phosphate [Mass/volume] in Serum or Plasma 2023-03-25 21:36:46 14.1 mg/dL F 2.4-5.1 Alkaline phosphatase [Enzymatic activity/volume] in Serum or Plasma 2023-03-25 21:36:46 128 U/L F 46.0-116.0 CA CORRECTED 2023-02-20 08:58:56 7.6 mg/dL F CA/PHOS PRODUCT 2023-02-20 08:50:20 63.4 Calc F 21.0-53.0 CA*PO4 CORRCTD 2023-02-20 08:50:20 66.9 Calc F 21.0-53.0 Calcium [Mass/volume] in Serum or Plasma 2023-02-20 08:30:22 7.2 mg/dL F 8.7-10.4 Phosphate [Mass/volume] in Serum or Plasma 2023-02-20 06:23:08 8.8 mg/dL F 2.4-5.1 Alkaline phosphatase [Enzymatic activity/volume] in Serum or Plasma 2023-02-20 06:23:08 128 U/L F 46.0-116.0 Parathyrin.intact [Mass/volume] in Serum or Plasma 2023-02-19 19:50:32 945 pg/mL F 18.0-80.0 CA CORRECTED 2023-01-22 07:57:54 8.7 mg/dL F CA*PO4 CORRCTD 2023-01-22 07:55:57 53.9 Calc F 21.0-53.0 CA/PHOS PRODUCT 2023-01-22 07:55:57 50.2 Calc F 21.0-53.0 Calcium [Mass/volume] in Serum or Plasma 2023-01-22 07:53:10 8.1 mg/dL F 8.7-10.4 Parathyrin.intact [Mass/volume] in Serum or Plasma 2023-01-22 06:35:21 303 pg/mL F 18.0-80.0 Phosphate [Mass/volume] in Serum or Plasma 2023-01-21 19:06:39 6.2 mg/dL F 2.4-5.1 Alkaline phosphatase [Enzymatic activity/volume] in Serum or Plasma 2023-01-21 19:06:39 113 U/L F 46.0-116.0 Parathyrin.intact [Mass/volume] in Serum or Plasma 2022-12-25 08:08:26 332 pg/mL F 18.0-80.0 CA CORRECTED 2022-12-25 06:13:19 8.7 mg/dL F CA/PHOS PRODUCT 2022-12-25 06:11:43 54.8 Calc F 21.0-53.0 CA*PO4 CORRCTD 2022-12-25 06:11:43 57.4 Calc F 21.0-53.0 Calcium [Mass/volume] in Serum or Plasma 2022-12-25 06:08:42 8.3 mg/dL F 8.7-10.4 25-Hydroxyvitamin D3+25-Hydroxyvitamin D2 [Mass/volume] in Serum or Plasma 2022-12-24 20:39:29 23.6 ng/mL F Phosphate [Mass/volume] in Serum or Plasma 2022-12-24 19:18:34 6.6 mg/dL F 2.4-5.1 Alkaline phosphatase [Enzymatic activity/volume] in Serum or Plasma 2022-12-24 19:18:34 122 U/L F 46.0-116.0 CA CORRECTED 2022-11-20 07:40:16 8.7 mg/dL F CA*PO4 CORRCTD 2022-11-20 07:17:56 75.7 Calc F 21.0-53.0 CA/PHOS PRODUCT 2022-11-20 07:17:56 70.5 Calc F 21.0-53.0 Calcium [Mass/volume] in Serum or Plasma 2022-11-20 07:05:57 8.1 mg/dL F 8.7-10.4 Parathyrin.intact [Mass/volume] in Serum or Plasma 2022-11-19 18:23:56 842 pg/mL F 18.0-80.0 Phosphate [Mass/volume] in Serum or Plasma 2022-11-19 15:28:30 8.7 mg/dL F 2.4-5.1 Alkaline phosphatase [Enzymatic activity/volume] in Serum or Plasma 2022-11-19 15:28:30 152 U/L F 46.0-116.0 CA CORRECTED 2022-10-23 07:57:38 8.2 mg/dL F CA/PHOS PRODUCT 2022-10-23 07:34:16 65.5 Calc F 21.0-53.0 CA*PO4 CORRCTD 2022-10-23 07:34:16 69.7 Calc F 21.0-53.0 Calcium [Mass/volume] in Serum or Plasma 2022-10-23 07:26:38 7.7 mg/dL F 8.7-10.4 Parathyrin.intact [Mass/volume] in Serum or Plasma 2022-10-23 07:13:21 669 pg/mL F 18.0-80.0 Phosphate [Mass/volume] in Serum or Plasma 2022-10-23 04:55:43 8.5 mg/dL F 2.4-5.1 Alkaline phosphatase [Enzymatic activity/volume] in Serum or Plasma 2022-10-23 04:55:43 154 U/L F 46.0-116.0 CA CORRECTED 2022-09-26 01:49:01 7.9 mg/dL F CA/PHOS PRODUCT 2022-09-26 01:47:04 87.8 Calc F 21.0-53.0 CA*PO4 CORRCTD 2022-09-26 01:47:04 92.4 Calc F 21.0-53.0 Calcium [Mass/volume] in Serum or Plasma 2022-09-26 01:44:39 7.5 mg/dL F 8.7-10.4 Parathyrin.intact [Mass/volume] in Serum or Plasma 2022-09-25 20:02:35 1005 pg/mL F 18.0-80.0 Phosphate [Mass/volume] in Serum or Plasma 2022-09-25 19:11:44 11.7 mg/dL F 2.4-5.1 Alkaline phosphatase [Enzymatic activity/volume] in Serum or Plasma 2022-09-25 19:11:44 157 U/L F 46.0-116.0 CA CORRECTED 2022-08-22 05:27:30 8.6 mg/dL F CA*PO4 CORRCTD 2022-08-22 05:08:32 72.2 Calc F 21.0-53.0 CA/PHOS PRODUCT 2022-08-22 05:08:32 68.9 Calc F 21.0-53.0 Calcium [Mass/volume] in Serum or Plasma 2022-08-22 04:59:44 8.2 mg/dL F 8.7-10.4 Parathyrin.intact [Mass/volume] in Serum or Plasma 2022-08-21 22:24:26 588 pg/mL F 18.0-80.0 Phosphate [Mass/volume] in Serum or Plasma 2022-08-21 17:17:40 8.4 mg/dL F 2.4-5.1 Alkaline phosphatase [Enzymatic activity/volume] in Serum or Plasma 2022-08-21 17:17:40 141 U/L F 46.0-116.0 CA CORRECTED 2022-07-25 03:52:41 8.3 mg/dL F CA/PHOS PRODUCT 2022-07-25 03:37:52 93.2 Calc F 21.0-53.0 CA*PO4 CORRCTD 2022-07-25 03:37:52 97.9 Calc F 21.0-53.0 Calcium [Mass/volume] in Serum or Plasma 2022-07-25 03:31:06 7.9 mg/dL F 8.7-10.4 Parathyrin.intact [Mass/volume] in Serum or Plasma 2022-07-24 16:34:21 899 pg/mL F 18.0-80.0 Phosphate [Mass/volume] in Serum or Plasma 2022-07-24 15:10:13 11.8 mg/dL F 2.4-5.1 Alkaline phosphatase [Enzymatic activity/volume] in Serum or Plasma 2022-07-24 15:10:13 160 U/L F 46.0-116.0 CA CORRECTED 2022-06-20 12:08:19 8.2 mg/dL F CA*PO4 CORRCTD 2022-06-20 06:44:35 93.5 Calc F 21.0-53.0 CA/PHOS PRODUCT 2022-06-20 06:44:35 87.8 Calc F 21.0-53.0 Calcium [Mass/volume] in Serum or Plasma 2022-06-20 06:29:39 7.7 mg/dL F 8.7-10.4 Phosphate [Mass/volume] in Serum or Plasma 2022-06-19 19:21:32 11.4 mg/dL F 2.4-5.1 Alkaline phosphatase [Enzymatic activity/volume] in Serum or Plasma 2022-06-19 19:21:32 144 U/L F 46.0-116.0 Parathyrin.intact [Mass/volume] in Serum or Plasma 2022-06-19 18:30:23 817 pg/mL F 18.0-80.0 CA CORRECTED 2022-05-16 11:44:22 8.5 mg/dL F CA/PHOS PRODUCT 2022-05-16 07:36:14 59.3 Calc F 21.0-53.0 CA*PO4 CORRCTD 2022-05-16 07:36:14 63.8 Calc F 21.0-53.0 Calcium [Mass/volume] in Serum or Plasma 2022-05-16 07:07:05 7.9 mg/dL F 8.7-10.4 Parathyrin.intact [Mass/volume] in Serum or Plasma 2022-05-15 20:23:24 490 pg/mL F 18.0-80.0 Phosphate [Mass/volume] in Serum or Plasma 2022-05-15 20:10:21 7.5 mg/dL F 2.4-5.1 Alkaline phosphatase [Enzymatic activity/volume] in Serum or Plasma 2022-05-15 20:10:21 146 U/L F 46.0-116.0 CA CORRECTED 2022-04-25 04:55:58 8.2 mg/dL F CA*PO4 CORRCTD 2022-04-25 04:14:41 66.4 Calc F 21.0-53.0 CA/PHOS PRODUCT 2022-04-25 04:14:41 61.6 Calc F 21.0-53.0 Calcium [Mass/volume] in Serum or Plasma 2022-04-25 03:32:08 7.6 mg/dL F 8.7-10.4 Phosphate [Mass/volume] in Serum or Plasma 2022-04-25 02:51:07 8.1 mg/dL F 2.4-5.1 Alkaline phosphatase [Enzymatic activity/volume] in Serum or Plasma 2022-04-25 02:51:07 143 U/L F 46.0-116.0 Parathyrin.intact [Mass/volume] in Serum or Plasma 2022-04-24 21:40:21 396 pg/mL F 18.0-80.0 CA CORRECTED 2022-03-26 03:38:55 8.6 mg/dL F CA*PO4 CORRCTD 2022-03-26 03:35:53 55 Calc F 21.0-53.0 CA/PHOS PRODUCT 2022-03-26 03:35:53 48.6 Calc F 21.0-53.0 Parathyrin.intact [Mass/volume] in Serum or Plasma 2022-03-25 23:38:14 423 pg/mL F 18.0-80.0 Calcium [Mass/volume] in Serum or Plasma 2022-03-25 22:50:58 7.6 mg/dL F 8.7-10.4 Magnesium [Mass/volume] in Serum or Plasma 2022-03-25 21:10:56 2.4 mg/dL F 1.3-2.7 Phosphate [Mass/volume] in Serum or Plasma 2022-03-25 21:10:56 6.4 mg/dL F 2.4-5.1 Alkaline phosphatase [Enzymatic activity/volume] in Serum or Plasma 2022-03-25 21:10:56 109 U/L F 46.0-116.0 Nutrition Description Draw Date Result/Unit Status Ref Range Result Comments Potassium [Moles/volume] in Serum or Plasma 2024-08-04 04:07:43 4.6 mEq/L F 3.5-5.5 Potassium [Moles/volume] in Serum or Plasma 2024-07-21 04:46:13 4 mEq/L F 3.5-5.5 GLOBULIN 2024-07-21 04:30:56 2.5 g/dL F 0.9-5.0 A/G RATIO 2024-07-21 04:30:56 1.4 Calc F 1.0-2.5 Lactate dehydrogenase [Enzymatic activity/volume] in Serum or Plasma 2024-07-21 04:30:15 252 U/L F 120.0-246.0 Bicarbonate [Moles/volume] in Serum or Plasma 2024-07-21 04:30:15 37 mEq/L F 20.0-31.0 Albumin [Mass/volume] in Serum or Plasma by Bromocresol green (BCG) dye binding method 2024-07-21 04:30:15 3.6 g/dL F 3.4-4.8 Protein [Mass/volume] in Serum or Plasma 2024-07-21 04:30:15 6.1 g/dL F 5.7-8.2 Potassium [Moles/volume] in Serum or Plasma 2024-07-07 07:15:39 3.9 mEq/L F 3.5-5.5 Potassium [Moles/volume] in Serum or Plasma 2024-06-22 22:12:24 4.4 mEq/L F 3.5-5.5 GLOBULIN 2024-06-22 13:55:17 2.6 g/dL F 0.9-5.0 A/G RATIO 2024-06-22 13:55:17 1.4 Calc F 1.0-2.5 Lactate dehydrogenase [Enzymatic activity/volume] in Serum or Plasma 2024-06-22 13:54:16 257 U/L F 120.0-246.0 Bicarbonate [Moles/volume] in Serum or Plasma 2024-06-22 13:54:16 39 mEq/L F 20.0-31.0 Albumin [Mass/volume] in Serum or Plasma by Bromocresol green (BCG) dye binding method 2024-06-22 13:54:16 3.7 g/dL F 3.4-4.8 Protein [Mass/volume] in Serum or Plasma 2024-06-22 13:54:16 6.3 g/dL F 5.7-8.2 Potassium [Moles/volume] in Serum or Plasma 2024-06-14 20:32:18 4.3 mEq/L F 3.5-5.5 GLOBULIN 2024-06-14 15:07:45 2.4 g/dL F 0.9-5.0 A/G RATIO 2024-06-14 15:07:45 1.5 Calc F 1.0-2.5 Lactate dehydrogenase [Enzymatic activity/volume] in Serum or Plasma 2024-06-14 15:03:26 243 U/L F 120.0-246.0 Bicarbonate [Moles/volume] in Serum or Plasma 2024-06-14 15:03:26 40 mEq/L F 20.0-31.0 Albumin [Mass/volume] in Serum or Plasma by Bromocresol green (BCG) dye binding method 2024-06-14 15:03:26 3.5 g/dL F 3.4-4.8 Protein [Mass/volume] in Serum or Plasma 2024-06-14 15:03:26 5.9 g/dL F 5.7-8.2 Bicarbonate [Moles/volume] in Serum or Plasma 2024-06-01 11:15:00 35 mEq/L F 22-30 Albumin [Mass/volume] in Serum or Plasma by Bromocresol green (BCG) dye binding method 2024-06-01 11:15:00 3.9 g/dL F 3.5-5 Potassium [Moles/volume] in Serum or Plasma 2024-06-01 11:15:00 4.5 mEq/L F 3.5-5.1 Potassium [Moles/volume] in Serum or Plasma 2024-04-21 07:04:43 4.9 mEq/L F 3.5-5.5 GLOBULIN 2024-04-20 19:26:01 2.6 g/dL F 0.9-5.0 A/G RATIO 2024-04-20 19:26:01 1.4 Calc F 1.0-2.5 Lactate dehydrogenase [Enzymatic activity/volume] in Serum or Plasma 2024-04-20 19:25:21 248 U/L F 120.0-246.0 Bicarbonate [Moles/volume] in Serum or Plasma 2024-04-20 19:25:21 38 mEq/L F 20.0-31.0 Albumin [Mass/volume] in Serum or Plasma by Bromocresol green (BCG) dye binding method 2024-04-20 19:25:21 3.6 g/dL F 3.4-4.8 Protein [Mass/volume] in Serum or Plasma 2024-04-20 19:25:21 6.2 g/dL F 5.7-8.2 Potassium [Moles/volume] in Serum or Plasma 2024-03-24 07:01:58 4.4 mEq/L F 3.5-5.5 GLOBULIN 2024-03-23 14:38:23 2.5 g/dL F 0.9-5.0 A/G RATIO 2024-03-23 14:38:23 1.5 Calc F 1.0-2.5 Lactate dehydrogenase [Enzymatic activity/volume] in Serum or Plasma 2024-03-23 14:37:25 246 U/L F 120.0-246.0 Bicarbonate [Moles/volume] in Serum or Plasma 2024-03-23 14:37:25 33 mEq/L F 20.0-31.0 Albumin [Mass/volume] in Serum or Plasma by Bromocresol green (BCG) dye binding method 2024-03-23 14:37:25 3.8 g/dL F 3.4-4.8 Protein [Mass/volume] in Serum or Plasma 2024-03-23 14:37:25 6.3 g/dL F 5.7-8.2 Cobalamin (Vitamin B12) [Mass/volume] in Serum or Plasma 2023-12-24 08:14:08 371 pg/mL F 211.0-911.0 Folate [Mass/volume] in Serum or Plasma 2023-12-24 08:13:13 8.8 ng/mL F 5.5-16.0 Potassium [Moles/volume] in Serum or Plasma 2023-12-24 07:50:25 4.1 mEq/L F 3.5-5.5 VLDL-CHOL(CALC) 2023-12-23 23:33:34 20 mg/dL F 0.0-29.0 LDL-CHOLESTEROL 2023-12-23 23:33:34 117 mg/dL F 0.0-99.0 GLOBULIN 2023-12-23 23:33:34 2.4 g/dL F 0.9-5.0 A/G RATIO 2023-12-23 23:33:34 1.5 Calc F 1.0-2.5 CHOL/HDL RATIO 2023-12-23 23:33:34 3.4 Calc F 3.3-5.0 Protein [Mass/volume] in Serum or Plasma 2023-12-23 23:32:26 98 mg/dL F 0.0-149.0 Cholesterol [Mass/volume] in Serum or Plasma 2023-12-23 23:32:26 194 mg/dL F 0.0-199.0 Lactate dehydrogenase [Enzymatic activity/volume] in Serum or Plasma 2023-12-23 23:32:26 234 U/L F 120.0-246.0 Bicarbonate [Moles/volume] in Serum or Plasma 2023-12-23 23:32:26 34 mEq/L F 20.0-31.0 Albumin [Mass/volume] in Serum or Plasma by Bromocresol green (BCG) dye binding method 2023-12-23 23:32:26 3.5 g/dL F 3.4-4.8 Cholesterol in HDL [Mass/volume] in Serum or Plasma 2023-12-23 23:32:26 57 mg/dL F 40.0-60.0 Protein [Mass/volume] in Serum or Plasma 2023-12-23 23:32:26 5.9 g/dL F 5.7-8.2 Potassium [Moles/volume] in Serum or Plasma 2023-11-26 07:17:11 4.6 mEq/L F 3.5-5.5 A/G RATIO 2023-11-26 04:48:41 1.5 Calc F 1.0-2.5 GLOBULIN 2023-11-26 04:48:41 2.4 g/dL F 0.9-5.0 Lactate dehydrogenase [Enzymatic activity/volume] in Serum or Plasma 2023-11-26 04:47:31 222 U/L F 120.0-246.0 Bicarbonate [Moles/volume] in Serum or Plasma 2023-11-26 04:47:31 30 mEq/L F 20.0-31.0 Albumin [Mass/volume] in Serum or Plasma by Bromocresol green (BCG) dye binding method 2023-11-26 04:47:31 3.5 g/dL F 3.4-4.8 Protein [Mass/volume] in Serum or Plasma 2023-11-26 04:47:31 5.9 g/dL F 5.7-8.2 Potassium [Moles/volume] in Serum or Plasma 2023-11-05 05:04:40 4.2 mEq/L F 3.5-5.5 Potassium [Moles/volume] in Serum or Plasma 2023-10-22 06:35:49 4.2 mEq/L F 3.5-5.5 A/G RATIO 2023-10-21 18:53:25 1.5 Calc F 1.0-2.5 GLOBULIN 2023-10-21 18:53:25 2.3 g/dL F 0.9-5.0 Lactate dehydrogenase [Enzymatic activity/volume] in Serum or Plasma 2023-10-21 18:53:15 236 U/L F 120.0-246.0 Bicarbonate [Moles/volume] in Serum or Plasma 2023-10-21 18:53:15 35 mEq/L F 20.0-31.0 Albumin [Mass/volume] in Serum or Plasma by Bromocresol green (BCG) dye binding method 2023-10-21 18:53:15 3.4 g/dL F 3.4-4.8 Protein [Mass/volume] in Serum or Plasma 2023-10-21 18:53:15 5.7 g/dL F 5.7-8.2 Potassium [Moles/volume] in Serum or Plasma 2023-09-24 06:50:04 4.2 mEq/L F 3.5-5.5 GLOBULIN 2023-09-23 20:28:17 2.1 g/dL F 0.9-5.0 A/G RATIO 2023-09-23 20:28:17 1.5 Calc F 1.0-2.5 Lactate dehydrogenase [Enzymatic activity/volume] in Serum or Plasma 2023-09-23 20:27:28 163 U/L F 120.0-246.0 Bicarbonate [Moles/volume] in Serum or Plasma 2023-09-23 20:27:28 28 mEq/L F 20.0-31.0 Albumin [Mass/volume] in Serum or Plasma by Bromocresol green (BCG) dye binding method 2023-09-23 20:27:28 3.2 g/dL F 3.4-4.8 Protein [Mass/volume] in Serum or Plasma 2023-09-23 20:27:28 5.3 g/dL F 5.7-8.2 Potassium [Moles/volume] in Serum or Plasma 2023-08-20 07:34:36 3.6 mEq/L F 3.5-5.5 GLOBULIN 2023-08-20 06:08:48 2.5 g/dL F 0.9-5.0 A/G RATIO 2023-08-20 06:08:48 1.4 Calc F 1.0-2.5 Lactate dehydrogenase [Enzymatic activity/volume] in Serum or Plasma 2023-08-20 06:08:31 241 U/L F 120.0-246.0 Bicarbonate [Moles/volume] in Serum or Plasma 2023-08-20 06:08:31 34 mEq/L F 20.0-31.0 Albumin [Mass/volume] in Serum or Plasma by Bromocresol green (BCG) dye binding method 2023-08-20 06:08:31 3.6 g/dL F 3.4-4.8 Protein [Mass/volume] in Serum or Plasma 2023-08-20 06:08:31 6.1 g/dL F 5.7-8.2 Potassium [Moles/volume] in Serum or Plasma 2023-07-23 06:43:26 4.3 mEq/L F 3.5-5.5 A/G RATIO 2023-07-23 01:21:52 1.5 Calc F 1.0-2.5 GLOBULIN 2023-07-23 01:21:52 2.6 g/dL F 0.9-5.0 Lactate dehydrogenase [Enzymatic activity/volume] in Serum or Plasma 2023-07-23 01:21:39 257 U/L F 120.0-246.0 Bicarbonate [Moles/volume] in Serum or Plasma 2023-07-23 01:21:39 30 mEq/L F 20.0-31.0 Albumin [Mass/volume] in Serum or Plasma by Bromocresol green (BCG) dye binding method 2023-07-23 01:21:39 3.8 g/dL F 3.4-4.8 Protein [Mass/volume] in Serum or Plasma 2023-07-23 01:21:39 6.4 g/dL F 5.7-8.2 Potassium [Moles/volume] in Serum or Plasma 2023-06-25 05:34:10 3.7 mEq/L F 3.5-5.5 GLOBULIN 2023-06-24 16:31:25 2.4 g/dL F 0.9-5.0 A/G RATIO 2023-06-24 16:31:25 1.5 Calc F 1.0-2.5 Lactate dehydrogenase [Enzymatic activity/volume] in Serum or Plasma 2023-06-24 16:30:40 225 U/L F 120.0-246.0 Bicarbonate [Moles/volume] in Serum or Plasma 2023-06-24 16:30:40 31 mEq/L F 20.0-31.0 Albumin [Mass/volume] in Serum or Plasma by Bromocresol green (BCG) dye binding method 2023-06-24 16:30:40 3.6 g/dL F 3.4-4.8 Protein [Mass/volume] in Serum or Plasma 2023-06-24 16:30:40 6 g/dL F 5.7-8.2 Potassium [Moles/volume] in Serum or Plasma 2023-05-21 07:03:41 4.1 mEq/L F 3.5-5.5 GLOBULIN 2023-05-20 15:31:39 2.6 g/dL F 0.9-5.0 A/G RATIO 2023-05-20 15:31:39 1.5 Calc F 1.0-2.5 Lactate dehydrogenase [Enzymatic activity/volume] in Serum or Plasma 2023-05-20 15:30:40 214 U/L F 120.0-246.0 Bicarbonate [Moles/volume] in Serum or Plasma 2023-05-20 15:30:40 32 mEq/L F 20.0-31.0 Albumin [Mass/volume] in Serum or Plasma by Bromocresol green (BCG) dye binding method 2023-05-20 15:30:40 4 g/dL F 3.4-4.8 Protein [Mass/volume] in Serum or Plasma 2023-05-20 15:30:40 6.6 g/dL F 5.7-8.2 Potassium [Moles/volume] in Serum or Plasma 2023-05-14 07:21:35 4.6 mEq/L F 3.5-5.5 Potassium [Moles/volume] in Serum or Plasma 2023-04-23 07:06:34 4.9 mEq/L F 3.5-5.5 A/G RATIO 2023-04-23 03:22:42 1.3 Calc F 1.0-2.5 GLOBULIN 2023-04-23 03:22:42 2.9 g/dL F 0.9-5.0 Lactate dehydrogenase [Enzymatic activity/volume] in Serum or Plasma 2023-04-23 03:21:38 238 U/L F 120.0-246.0 Bicarbonate [Moles/volume] in Serum or Plasma 2023-04-23 03:21:38 29 mEq/L F 20.0-31.0 Albumin [Mass/volume] in Serum or Plasma by Bromocresol green (BCG) dye binding method 2023-04-23 03:21:38 3.8 g/dL F 3.4-4.8 Protein [Mass/volume] in Serum or Plasma 2023-04-23 03:21:38 6.7 g/dL F 5.7-8.2 Potassium [Moles/volume] in Serum or Plasma 2023-03-26 07:30:51 5.1 mEq/L F 3.5-5.5 GLOBULIN 2023-03-25 21:37:13 2.8 g/dL F 0.9-5.0 A/G RATIO 2023-03-25 21:37:13 1.4 Calc F 1.0-2.5 Lactate dehydrogenase [Enzymatic activity/volume] in Serum or Plasma 2023-03-25 21:36:46 232 U/L F 120.0-246.0 Bicarbonate [Moles/volume] in Serum or Plasma 2023-03-25 21:36:46 23 mEq/L F 20.0-31.0 Albumin [Mass/volume] in Serum or Plasma by Bromocresol green (BCG) dye binding method 2023-03-25 21:36:46 3.9 g/dL F 3.4-4.8 Protein [Mass/volume] in Serum or Plasma 2023-03-25 21:36:46 6.7 g/dL F 5.7-8.2 Potassium [Moles/volume] in Serum or Plasma 2023-02-20 08:30:15 4.8 mEq/L F 3.5-5.5 GLOBULIN 2023-02-20 06:23:56 2.6 g/dL F 0.9-5.0 A/G RATIO 2023-02-20 06:23:56 1.3 Calc F 1.0-2.5 Lactate dehydrogenase [Enzymatic activity/volume] in Serum or Plasma 2023-02-20 06:23:08 209 U/L F 120.0-246.0 Bicarbonate [Moles/volume] in Serum or Plasma 2023-02-20 06:23:08 28 mEq/L F 20.0-31.0 Albumin [Mass/volume] in Serum or Plasma by Bromocresol green (BCG) dye binding method 2023-02-20 06:23:08 3.5 g/dL F 3.4-4.8 Protein [Mass/volume] in Serum or Plasma 2023-02-20 06:23:08 6.1 g/dL F 5.7-8.2 Potassium [Moles/volume] in Serum or Plasma 2023-01-22 07:53:10 4.4 mEq/L F 3.5-5.5 GLOBULIN 2023-01-21 19:06:48 2.4 g/dL F 0.9-5.0 A/G RATIO 2023-01-21 19:06:48 1.4 Calc F 1.0-2.5 Lactate dehydrogenase [Enzymatic activity/volume] in Serum or Plasma 2023-01-21 19:06:39 170 U/L F 120.0-246.0 Bicarbonate [Moles/volume] in Serum or Plasma 2023-01-21 19:06:39 24 mEq/L F 20.0-31.0 Albumin [Mass/volume] in Serum or Plasma by Bromocresol green (BCG) dye binding method 2023-01-21 19:06:39 3.3 g/dL F 3.4-4.8 Protein [Mass/volume] in Serum or Plasma 2023-01-21 19:06:39 5.7 g/dL F 5.7-8.2 GLOBULIN 2022-12-24 19:18:46 2.2 g/dL F 0.9-5.0 A/G RATIO 2022-12-24 19:18:46 1.6 Calc F 1.0-2.5 Lactate dehydrogenase [Enzymatic activity/volume] in Serum or Plasma 2022-12-24 19:18:34 212 U/L F 120.0-246.0 Bicarbonate [Moles/volume] in Serum or Plasma 2022-12-24 19:18:34 21 mEq/L F 20.0-31.0 Albumin [Mass/volume] in Serum or Plasma by Bromocresol green (BCG) dye binding method 2022-12-24 19:18:34 3.5 g/dL F 3.4-4.8 Potassium [Moles/volume] in Serum or Plasma 2022-12-24 19:18:34 5.5 mEq/L F 3.5-5.5 Protein [Mass/volume] in Serum or Plasma 2022-12-24 19:18:34 5.7 g/dL F 5.7-8.2 A/G RATIO 2022-11-19 15:29:03 1.4 Calc F 1.0-2.5 GLOBULIN 2022-11-19 15:29:03 2.4 g/dL F 0.9-5.0 Lactate dehydrogenase [Enzymatic activity/volume] in Serum or Plasma 2022-11-19 15:28:30 248 U/L F 120.0-246.0 Bicarbonate [Moles/volume] in Serum or Plasma 2022-11-19 15:28:30 34 mEq/L F 20.0-31.0 Potassium [Moles/volume] in Serum or Plasma 2022-11-19 15:28:30 6.2 mEq/L F 3.5-5.5 Albumin [Mass/volume] in Serum or Plasma by Bromocresol green (BCG) dye binding method 2022-11-19 15:28:30 3.3 g/dL F 3.4-4.8 Protein [Mass/volume] in Serum or Plasma 2022-11-19 15:28:30 5.7 g/dL F 5.7-8.2 GLOBULIN 2022-10-23 05:00:12 2.6 g/dL F 0.9-5.0 A/G RATIO 2022-10-23 05:00:12 1.3 Calc F 1.0-2.5 Lactate dehydrogenase [Enzymatic activity/volume] in Serum or Plasma 2022-10-23 04:55:43 275 U/L F 120.0-246.0 Bicarbonate [Moles/volume] in Serum or Plasma 2022-10-23 04:55:43 35 mEq/L F 20.0-31.0 Albumin [Mass/volume] in Serum or Plasma by Bromocresol green (BCG) dye binding method 2022-10-23 04:55:43 3.4 g/dL F 3.4-4.8 Potassium [Moles/volume] in Serum or Plasma 2022-10-23 04:55:43 3.6 mEq/L F 3.5-5.5 Protein [Mass/volume] in Serum or Plasma 2022-10-23 04:55:43 6 g/dL F 5.7-8.2 GLOBULIN 2022-09-25 19:12:18 2.7 g/dL F 0.9-5.0 A/G RATIO 2022-09-25 19:12:18 1.3 Calc F 1.0-2.5 Bicarbonate [Moles/volume] in Serum or Plasma 2022-09-25 19:11:44 37 mEq/L F 20.0-31.0 Albumin [Mass/volume] in Serum or Plasma by Bromocresol green (BCG) dye binding method 2022-09-25 19:11:44 3.5 g/dL F 3.4-4.8 Protein [Mass/volume] in Serum or Plasma 2022-09-25 19:11:44 6.2 g/dL F 5.7-8.2 Lactate dehydrogenase [Enzymatic activity/volume] in Serum or Plasma 2022-09-25 19:11:21 F Recollect - Hemolyzed specimen Potassium [Moles/volume] in Serum or Plasma 2022-09-25 19:11:21 F Recollect - Hemolyzed specimen GLOBULIN 2022-08-21 17:18:04 2.5 g/dL F 0.9-5.0 A/G RATIO 2022-08-21 17:18:04 1.4 Calc F 1.0-2.5 Lactate dehydrogenase [Enzymatic activity/volume] in Serum or Plasma 2022-08-21 17:17:40 360 U/L F 120.0-246.0 Bicarbonate [Moles/volume] in Serum or Plasma 2022-08-21 17:17:40 40 mEq/L F 20.0-31.0 Albumin [Mass/volume] in Serum or Plasma by Bromocresol green (BCG) dye binding method 2022-08-21 17:17:40 3.5 g/dL F 3.4-4.8 Potassium [Moles/volume] in Serum or Plasma 2022-08-21 17:17:40 3.5 mEq/L F 3.5-5.5 Protein [Mass/volume] in Serum or Plasma 2022-08-21 17:17:40 6 g/dL F 5.7-8.2 GLOBULIN 2022-07-24 15:10:24 2.6 g/dL F 0.9-5.0 A/G RATIO 2022-07-24 15:10:24 1.3 Calc F 1.0-2.5 Lactate dehydrogenase [Enzymatic activity/volume] in Serum or Plasma 2022-07-24 15:10:13 333 U/L F 120.0-246.0 Bicarbonate [Moles/volume] in Serum or Plasma 2022-07-24 15:10:13 34 mEq/L F 20.0-31.0 Albumin [Mass/volume] in Serum or Plasma by Bromocresol green (BCG) dye binding method 2022-07-24 15:10:13 3.5 g/dL F 3.4-4.8 Potassium [Moles/volume] in Serum or Plasma 2022-07-24 15:10:13 3.8 mEq/L F 3.5-5.5 Protein [Mass/volume] in Serum or Plasma 2022-07-24 15:10:13 6.1 g/dL F 5.7-8.2 GLOBULIN 2022-06-19 19:22:11 2.6 g/dL F 0.9-5.0 A/G RATIO 2022-06-19 19:22:11 1.3 Calc F 1.0-2.5 Lactate dehydrogenase [Enzymatic activity/volume] in Serum or Plasma 2022-06-19 19:21:32 294 U/L F 120.0-246.0 Bicarbonate [Moles/volume] in Serum or Plasma 2022-06-19 19:21:32 35 mEq/L F 20.0-31.0 Albumin [Mass/volume] in Serum or Plasma by Bromocresol green (BCG) dye binding method 2022-06-19 19:21:32 3.4 g/dL F 3.4-4.8 Potassium [Moles/volume] in Serum or Plasma 2022-06-19 19:21:32 4.4 mEq/L F 3.5-5.5 Protein [Mass/volume] in Serum or Plasma 2022-06-19 19:21:32 6 g/dL F 5.7-8.2 GLOBULIN 2022-05-15 20:11:22 2.8 g/dL F 0.9-5.0 A/G RATIO 2022-05-15 20:11:22 1.2 Calc F 1.0-2.5 Lactate dehydrogenase [Enzymatic activity/volume] in Serum or Plasma 2022-05-15 20:10:21 285 U/L F 120.0-246.0 Bicarbonate [Moles/volume] in Serum or Plasma 2022-05-15 20:10:21 39 mEq/L F 20.0-31.0 Potassium [Moles/volume] in Serum or Plasma 2022-05-15 20:10:21 4.4 mEq/L F 3.5-5.5 Albumin [Mass/volume] in Serum or Plasma by Bromocresol green (BCG) dye binding method 2022-05-15 20:10:21 3.3 g/dL F 3.4-4.8 Protein [Mass/volume] in Serum or Plasma 2022-05-15 20:10:21 6.1 g/dL F 5.7-8.2 GLOBULIN 2022-04-25 02:51:45 3 g/dL F 0.9-5.0 A/G RATIO 2022-04-25 02:51:45 1.1 Calc F 1.0-2.5 Lactate dehydrogenase [Enzymatic activity/volume] in Serum or Plasma 2022-04-25 02:51:07 290 U/L F 120.0-246.0 Bicarbonate [Moles/volume] in Serum or Plasma 2022-04-25 02:51:07 40 mEq/L F 20.0-31.0 Potassium [Moles/volume] in Serum or Plasma 2022-04-25 02:51:07 5 mEq/L F 3.5-5.5 Albumin [Mass/volume] in Serum or Plasma by Bromocresol green (BCG) dye binding method 2022-04-25 02:51:07 3.2 g/dL F 3.4-4.8 Protein [Mass/volume] in Serum or Plasma 2022-04-25 02:51:07 6.2 g/dL F 5.7-8.2 GLOBULIN 2022-03-25 21:11:34 2.5 g/dL F 0.9-5.0 A/G RATIO 2022-03-25 21:11:34 1.1 Calc F 1.0-2.5 Lactate dehydrogenase [Enzymatic activity/volume] in Serum or Plasma 2022-03-25 21:10:56 205 U/L F 120.0-246.0 Bicarbonate [Moles/volume] in Serum or Plasma 2022-03-25 21:10:56 39 mEq/L F 20.0-31.0 Potassium [Moles/volume] in Serum or Plasma 2022-03-25 21:10:56 3.5 mEq/L F 3.5-5.5 Albumin [Mass/volume] in Serum or Plasma by Bromocresol green (BCG) dye binding method 2022-03-25 21:10:56 2.7 g/dL F 3.4-4.8 Protein [Mass/volume] in Serum or Plasma 2022-03-25 21:10:56 5.2 g/dL F 5.7-8.2 Other Description Draw Date Result/Unit Status Ref Range Result Comments ANION GAP 2024-06-01 11:15:00 11.5 Calc F 5-15 Encounters No encounter information to report Immunizations Ordered Immunization Name Filled Immunization Name Date Status Comments Refusal Reason TST-PPD intradermal 2024-03-29 11:34:42 Influenza, MDCK, trivalent, preservative 2023-11-17 10:45:17 Hepatitis B Vaccination 2023-10-17 04:00:00 Hepatitis B Vaccination 2023-08-29 04:00:00 TST-PPD intradermal 2023-03-17 11:56:09 TB RAQ 2023-03-17 05:00:00 Pneumococcal conjugate PCV20, polysaccharide CEK216 conjugate, adjuvant, PF 2023-01-20 11:53:37 TST-PPD intradermal 2022-03-24 13:53:00 TB RAQ 2022-03-24 05:00:00 Influenza Vaccination 2021-12-26 05:00:00 Hepatitis B Vaccination 2021-06-11 04:00:00 Hepatitis B Vaccination 2021-04-09 05:00:00 Hepatitis B Vaccination 2021-04-01 05:00:00 Covid-19 Vaccination 2021-01-11 08:00:00 Hepatitis B Vaccination 2020-12-14 04:00:00 Influenza Vaccination 2020-11-22 04:00:00 Hepatitis B Vaccination 2020-10-13 04:00:00 TB Skin Test 2020-05-29 04:00:00 Hepatitis B Vaccination 2020-05-18 04:00:00 Covid-19 Vaccination 2020-04-18 08:00:00 Hepatitis B Vaccination 2020-03-16 05:00:00 Pneumococcal Vaccination 2018-05-24 04:00:00 Plan of Treatment Planned Activity Provider Planned Date Details Commen ts Diagnostic Test Pending [facility] 2022-05-11 05:29:39 Alanine aminotransferase [Enzymatic activity/volume] in Serum or Plasma [code = 1742-6] Diagnostic Test Pending [facility] 2024-07-10 04:00:00 Ferritin [Mass/volume] in Serum or Plasma [code = 2276-4] Diagnostic Test Pending [facility] 2024-06-28 05:38:34 Hemoglobin [Mass/volume] in Blood [code = 718-7] Diagnostic Test Pending [facility] 2023-01-06 05:00:00 Potassium [Moles/volume] in Serum or Plasma [code = 2823-3] Diagnostic Test Pending [facility] 2021-09-12 14:21:39 25-Hydroxyvitamin D3+25-Hydroxyvitamin D2 [Mass/volume] in Serum or Plasma [code = 37940-0] Diagnostic Test Pending [facility] 2021-08-25 04:00:00 Aluminum [Mass/volume] in Serum or Plasma [code = 5574-9] Diagnostic Test Pending [facility] 2021-10-10 04:00:00 Parathyrin.intact [Mass/volume] in Serum or Plasma [code = 2731-8] Diagnostic Test Pending [facility] 2021-08-25 04:00:00 Folate [Mass/volume] in Serum or Plasma [code = 2284-8] Diagnostic Test Pending [facility] 2021-08-25 04:00:00 Cobalamin (Vitamin B12) [Mass/volume] in Serum or Plasma [code = 2132-9] Diagnostic Test Pending Brandon Michelle [facility] 2024-07-27 17:59:42 In-Center Hemodialysis Treatment [code = BHP765] Diet Order Brandon Michelle [facility] September 08, 2023 Diet Calorie 40 kcal/kg Fluid Value 1500 mL/d Phosphorus Value 1000 mg/d Potassium Value 2000 mg/d Protein Value 1.4 gm/kg Sodium Value 2000 mg/d Calculated Weight 48 kg dietary_diet_modification Calories Incre ased for Weight Gain;
--- OUTSIDE RECORDS SUMMARY | 2024-08-10 07:54 | XMS_ITS | Encounter Summary ---
Author Organization [facility] Address [address] [place] [address] Care Team Providers Care Machine Tank Operator Name Role Phone Marcelo Reese MD Primary Care Provider + [phone] Encounter Details Date Type Department Care Team (Late st Contact Info) Description 07/29/2017 [facility] Historical OTTR [address] [place] [address] ProviderDebbie MD [address] [place] [id number] Social History Tobacco Use Types Packs/Day Years Used Date Smoking Tobacco: Never Assessed Comments Unknown Sex and Gender Information Value Date Recorded Sex Assigned at Not on file Legal Sex Female 8:06 PM EDT Gender Identity Not on file Sexual Orientation Not on file documented as of this encounter Miscellaneous Notes * Progress Notes - Debbie Wagner MD - 07/29/2017 4:11 PM EDT 46 F, Stage IV-V CKD. Unclear etiology. Seen several months ago for ICE. Barrier to transplant is psychosocial. 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 Has had intermittent contact with [employer]. She continues to have issues and purges once a week or so. She seems open and relatively insightful about her condition. She endorses a good relationship withher current therapist and also sees [facility]. She was started on fluoxetine. Her weight is stable. Her BMI is 19, but she doesn't appear severely undernourished. Plan: I think it is reasonable to proceed with evaluation and possible listing inactive, with the goal of achieving waiting time before she starts dialysis and with the understanding that she cannot be activated on the list without satisfactory treatment and resolution of her condition. * Progress Notes - Tiffani Kennedy - 07/29/2017 9:11 AM EDT Pt is seeing a therapist twice monthly for eating disorder. Needs to continue seeing her therapist as well as [facility]. Start evaluation with the goal of listing inactive. In order to be active, will need clearance from [facility] and to demonstrate no purging for at least six months. * Progress Notes - Tiffani Kennedy - 07/15/2017 9:06 AM EDT Not cleared by psych. She is still purging 3x/week. Schedule a surgeon visit to discuss the possibility of starting her evaluation with the goal of getting her listed inactive to start waiting time. If the surgeon feels this is a reasonable plan after meeting with her, she will likely need to be stable from psych perspective for one year before activation. * Progress Notes - Ankita Vicente - 04/29/2017 8:52 AM EDT Seen 04/23 - HPI: 46 WF CKD from not yet on dialysis, normal amount of urine, etiology unclear ??? known history of anorexia/bulimia >20yrs, diuretic/laxative/NSAID abuse, UTI, kidney stones, gout.HTN developed over last 6-9 months ??? no meds. GFR 15-18. No transfusion, txp, pregnancies. 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 SLE, no kidney disease SH: (not aware of eating disorder?), works, occ etoh, former smoker, + tattoos/piercing; sees group social worker for eating disorder Exam: undernourished, BMI 20, excellent pulses, no edema Labs: AIC 5.1%, OPos, GFR 15 Plan: 46 WF CKD not on dialysis, discussed concerns with taking meds, weight gain on steroids. Start with SW, psych (recs per carpet binder), and nutrition * Progress Notes - Jumana Ku - 04/29/2017 8:19 AM EDT Start evaluation with SW and psychiatry due to long history of eating disorders which patient states she continues to struggle. documented in this encounter Plan of Treatment Upcoming Encounters Date Type Department Care Team (Late st Contact Info) Description 09/09/2024 11:00 AM EDT Social Work [facility] [address] [facility] [address] [place] [address] Cassia Verma [facility] [address] [place] [address] documented as of this encounter Visit Diagnoses Not on filedocumented in this encounter Care Teams Machine Tank Operator Relationship Specialty Start Date End Date Marcelo Reese MD [address] [facility] [address] [place] [address] PCP - General 06/22/20 documented as of this encounter
--- OUTSIDE RECORDS SUMMARY | 2024-08-10 07:54 | XMS_ITS | Encounter Summary ---
Author Organization [facility] Address [address] [place] [address] Care Team Providers Care Observation Nurse Name Role Phone Marcelo Reese MD Primary Care Provider [phone] Encounter Details Date Type Department Care Team (Late st Contact Info) Description 11/28/2021 Lab Requisition [facility] [address] [place] [address] Ankita Vicente MD [address] [address] Awaiting organ transplant status; End stage renal [...] Description 09/09/2024 11:00 AM EDT Social Work [facility] [address] [address] Cassia Verma [facility] [address] [place] [id number] documented as of this encounter Procedures Procedure Name Priority Date/Time Associated Diagnosis Comments HLA ANTIBODY TESTING (LSA) Routine 11/26/2021 8:15 AM EDT Awaiting organ transplant status End stage renal disease (CMS/HCC) documented in this encounter Results * HLA Antibody Testing (LSA) (11/26/2021 8:15 AM EDT) Blood Venous blood specimen / Unknown 11/26/2021 8:15 AM EDT 11/28/2021 11:35 AM EDT us Ankita Vicente MD LAB BLOOD ORDERABLES Final Resul t Performing Organization Address City/State/[facility] Co de Phone Number [facility] [address] documented in this encounter Visit Diagnoses Diagnosis Awaiting organ transplant status End stage renal disease (CMS/HCC) End stage renal disease documented in this encounter Additional Health Concerns Assessment Noted Time A fall risk assessment has been complete d for the patient 12/17/2020 2:12 PM EST documented as of this encounter Care Teams Observation Nurse Relationship Specialty Start Date End Date Marcelo Reese MD [address] [place] [address] PCP - General 06/22/20 documented as of this encounter
--- OUTSIDE RECORDS SUMMARY | 2024-08-10 07:54 | XMS_ITS | Encounter Summary ---
Author Organization [facility] Address [address] [place] [address] Care Team Providers Care Information Technology Consultant Name Role Phone Marcelo Reese MD Primary Care Provider + [phone] Encounter Details Date Type Department Care Team (Late st Contact Info) Description 08/24/2019 [facility] OTTR Encounter Historical OTTR [address] [place] [address] Hamida Delaney [place] [id number] Social History Tobacco Use Types Packs/Day Years Used Date Smoking Tobacco: Never Assessed Comments Unknown Sex and Gender Information Value Date Recorded Sex Assigned at Not on file Legal Sex Female 8:06 PM EDT Gender Identity Not on file Sexual Orientation Not on file documented as of this encounter Miscellaneous Notes * Progress Notes - Hamida Delaney - 08/24/2019 8:35 AM EDT August 14, Ms. Hatch had a visit with Dr. Michelle. Per his not, he will continue to put off dialysis and will recheck in 2 months. - [facility] set to follow up in 2 months. - Note to Dr. Vicente and Nusrat for update documented in this encounter Plan of Treatment Upcoming Encounters Date Type Department Care Team (Late st Contact Info) Description 09/09/2024 11:00 AM EDT Social Work [facility] [address] [place] [address] Cassia Verma [facility] [address] [place] [address] documented as of this encounter Visit Diagnoses Not on filedocumented in this encounter Care Teams Information Technology Consultant Relationship Specialty Start Date End Date Marcelo Reese MD [address] [facility] [address] [place] [address] PCP - General 06/22/20 documented as of this encounter
--- OUTSIDE RECORDS SUMMARY | 2024-08-10 07:55 | XMS_ITS | Encounter Summary ---
Author Organization [facility] Address [address] [place] [address] Care Team Providers Care Clinical Asst Name Role Phone Marcelo Reese MD Primary Care Provider + [phone] Source Comments This information has been disclosed to you from confidential records protectfrom disclosure by state law. You shall make no further disclosure of thisinformation without the specific, written, and informed release of theindividual to whom it pertains, or as otherwise permitted by law. A generalauthorization for the release of medical or other information is not sufficientfor the purposes of the release of HIV test results or diagnoses. [id number] Health Encounter Details Date Type Department Care Team (Late st Contact Info) Description 07/07/2024 Orders Only [facility] [facility] [address] [place] [address] Jose Patterson MD [address] [facility] [address] [place] [address] Social History Tobacco Use Types Packs/Day Years Used Date Smoking Tobacco: Former Cigarettes - 2009 Smokeless Tobacco: Never Alcohol Use Standard Drinks/Week Comments Never 0 (1 standard drink = 0.6 oz pur e alcohol) PHQ-2 Answer Date Recorded PHQ-2 Total Score 0 12/18/2022 Yearly Questionnaire Answer Date Record ed Do you need any assistance w ith obtaining housing, meals, medication, transportation or medical equipment? No 12/18 Assistance needed for: Not on file Yearly Questionnaire Answer Date Record ed Do you need any assistance w ith obtaining housing, meals, medication, transportation or medical equipment? No 12/18 Assistance needed for: Not on file 3 Yearly Questionnaire Answer Date Record ed Do you need any assistance w ith obtaining housing, meals, medication, transportation or medical equipment? No 12/18 Assistance needed for: Not on file 3 Comments Unknown Sex and Gender Information Value Date Recorded Sex Assigned at Not on file Legal Sex Female 9:58 AM EDT Gender Identity Not on file Sexual Orientation Not on file documented as of this encounter Plan of Treatment Not on file documented as of this encounter Procedures Procedure Name Priority Date/Time Associated Diagnosis Comments HOX - HLA ANTIBODY REPORT Routine 07/07/2024 1:43 PM EDT documented in this encounter Results * Hox - HLA Antibody Report (07/07/2024 1:43 PM EDT) 07/07/2024 1:43 PM EDT Jose Patterson MD LAB BLOOD ORDERABLES Final Resul t Performing Organization Address City/State/[facility] Co de Phone Number [facility] [email or web address] [address] documented in this encounter Visit Diagnoses Not on filedocumented in this encounter Care Teams Clinical Asst Relationship Specialty Start Date End Date Marcelo Reese MD [address] [place] [address] [place] [address] PCP - General Family Medicine 03/09/23 documented as of this encounter
--- OUTSIDE RECORDS SUMMARY | 2024-08-10 07:55 | XMS_ITS | Encounter Summary ---
Author Organization [facility] Address [address] [place] [id number] Care Team Providers Care Mail Carrier Name Role Phone Marcelo Reese MD Primary Care Provider + [phone] Encounter Details Date Type Department Care Team (Late Contact Info) Description 09/01/2018 [facility] OTTR Encounter Historical OTTR [address] [place] [address] [place] [address] Social History Tobacco Use Types Packs/Day Years Used Date Smoking Tobacco: Never Assessed Comments Unknown Sex and Gender Information Value Date Recorded Sex Assigned at Not on file Legal Sex Female 8:06 PM EDT Gender Identity Not on file Sexual Orientation Not on file documented as of this encounter Miscellaneous Notes * Progress Notes - Tiffani Gambino - 09/01/2018 1:53 PM EDT Coverage verified, pt is financially clear to reactivate documented in this encounter Plan of Treatment Upcoming Encounters Date Type Department Care Team (Late Contact Info) Description 09/09/2024 11:00 AM EDT Social Work [facility] [address] [facility] [address] [place] [address] Cassia Verma [facility] [address] [place] [address] documented as of this encounter Visit Diagnoses Not on filedocumented in this encounter Care Teams Mail Carrier Relationship Specialty Start Date End Date Marcelo Reese MD [address] [place] [id number] PCP - General 06/22/20 documented as of this encounter
--- OUTSIDE RECORDS SUMMARY | 2024-08-10 07:55 | XMS_ITS | Encounter Summary ---
Author Organization [facility] Address [address] [place] [address] Care Team Providers Care Egg Tester Name Role Phone Marcelo Reese MD Primary Care Provider + [phone] Reason for Visit * Reason Comments Med Refill Encounter Details Date Type Department Care Team (Late st Contact Info) Description 08/14/2020 Refill [facility] [address] [place] [address] Brandon Michelle MD [address] [facility] [address] [place] [address] Social History Tobacco Use Types [...] Description 09/09/2024 11:00 AM EDT Social Work [facility] [address] [facility] [address] [place] [address] Cassia Verma [facility] [address] [place] [address] documented as of this encounter Visit Diagnoses Not on filedocumented in this encounter Care Teams Egg Tester Relationship Specialty Start Date End Date Marcelo Reese MD [address] [facility] [address] [place] [address] PCP - General 06/22/20 documented as of this encounter
--- OUTSIDE RECORDS SUMMARY | 2024-08-10 07:55 | XMS_ITS | Encounter Summary ---
Author Organization [facility] Address [address] [place] [address] Care Team Providers Care Band Tumbler Name Role Phone Marcelo Reese MD Primary Care Provider + [phone] Source Comments This information has been disclosed [...] release of HIV test results or diagnoses. [id number] Health Encounter Details Date Type Department Care Team (Late st Contact Info) Description 07/06/2024 Chart Note [facility] Kidney Transplant at [address] [place] [address] Darya Chatman MA Social History Tobacco Use Types Packs/Day Years [...] Procedure Name Priority Date/Time Associated Diagnosis Comments PTH, INTACT Routine 06/01/2024 documented in this encounter Results * PTH (06/01/2024) PTH 1,164 pg/mL Serum Historical Provider LAB BLOOD ORDERABLES Tiana l Result documented in this encounter Visit Diagnoses Not on filedocumented in this encounter Care Teams Band Tumbler Relationship Specialty Start Date End Date Marcelo Reese MD [address] [place] [address] [place] [address] PCP - General Family Medicine 03/09/23 documented as of this encounter
--- OUTSIDE RECORDS SUMMARY | 2024-08-10 07:55 | XMS_ITS | Encounter Summary ---
Author Organization [facility] Address [address] [place] [address] Care Team Providers Care Hydroelectric Plant Structural Engineer Name Role Phone Marcelo Reese MD Primary Care Provider [phone] Encounter Details Date Type Department Care Team (Late st Contact Info) Description 08/21/2020 Lab Requisition [facility] [address] [place] [address] Manuel Menon MD [address] [address] Awaiting organ transplant status Social History Tobacco [...] Description 09/09/2024 11:00 AM EDT Social Work [facility] [address] [address] Cassia Verma [facility] [address] [place] [address] documented as of this encounter Procedures Procedure Name Priority Date/Time Associated Diagnosis Comments HLA ANTIBODY TESTING (LSA) Routine 08/16/2020 8:45 AM EDT Awaiting organ transplant status documented in this encounter Results * HLA Antibody Testing (LSA) (08/16/2020 8:45 AM EDT) Blood Venous blood specimen / Unknown 08/16/2020 8:45 AM EDT 08/21/2020 12:53 PM EDT us Manuel Menon MD LAB BLOOD ORDERABLES Final Res ult Performing Organization Address City/State/[facility] Co de Phone Number [facility] [address] documented in this encounter Visit Diagnoses Diagnosis Awaiting organ transplant status documented in this encounter Care Teams Hydroelectric Plant Structural Engineer Relationship Specialty Start Date End Date Marcelo Reese MD [address] [place] [address] PCP - General 06/22/20 documented as of this encounter
--- OUTSIDE RECORDS SUMMARY | 2024-08-10 07:55 | XMS_ITS | Encounter Summary ---
Author Organization [facility] Address [address] [place] [id number] Care Team Providers Care Hot Walker Name Role Phone Marcelo Reese MD Primary Care Provider + [phone] Encounter Details Date Type Department Care Team (Late st Contact Info) Description 08/24/2018 [facility] OT[facility] Encounter Historical OTTR [address] [place] [address] Emily Livingston, RN [id number] [address] [place] [address] Social History Tobacco Use Types Packs/Day Years Used Date Smoking Tobacco: Never Assessed Comments Unknown Sex and Gender Information Value Date Recorded Sex Assigned at Not on file Legal Sex Female 8:06 PM EDT Gender Identity Not on file Sexual Orientation Not on file documented as of this encounter Miscellaneous Notes * Progress Notes - Emily Livingston - 08/24/2018 12:09 PM EDT pt called and said she called [facility] to set up an appt and they put with another doctor. After talking to her more, it appears they are putting her with a different resident every time and that confused her. Explained residents and attendings and told her as long as the same attending is in clinic the days she goes it will be continuity of care. Also told her to speak with the attending when she goes to clinic and explain to them what she is trying to do and why. She verbalized understanding,all questions asked were answered. Told her if she had more questions to call me back or if she needed me to call the [facility] clinic I would, she understood. documented in this encounter Plan of Treatment Upcoming Encounters Date Type Department Care Team (Late st Contact Info) Description 09/09/2024 11:[address] [facility] [address] [facility] [address] [place] [address] Cassia Verma [facility] [address] [place] [phone] documented as of this encounter Visit Diagnoses Not on filedocumented in this encounter Care Teams Hot Walker Relationship Specialty Start Date End Date Marcelo Reese MD [address] [facility] [address] [place] [address] PCP - General 06/22/20 documented as of this encounter
--- OUTSIDE RECORDS SUMMARY | 2024-08-10 07:55 | XMS_ITS | Encounter Summary ---
Author Organization [facility] Address [address] [place] [address] Care Team Providers Care Tree Inspector Name Role Phone Marcelo Reese MD Primary Care Provider + [phone] Encounter Details Date Type Department Care Team (Late st Contact Info) Description 01/27/2019 Legacy OTTR Encounter Historical OTTR [address] [place] [address] Vania Braswell [place] [id number] Social History Tobacco Use Types Packs/Day Years Used Date Smoking Tobacco: Never Assessed Comments Unknown Sex and Gender Information Value Date Recorded Sex Assigned at Not on file Legal Sex Female 8:06 PM EDT Gender Identity Not on file Sexual Orientation Not on file documented as of this encounter Miscellaneous Notes * Progress Notes - Vania Braswell - 01/27/2019 12:10 PM EST Received email for Surgical referral from Dr. Brandon Michelle for PDC consult dx CKD5. HandP dated 01/26/19 from [facility] saved in [employer]. Called pt at [phone], confirmed pt is scheduled for Surigical ICE on 03/03/19 09:40 am arrival time for SG/POAC. Pt was offered 02/17/19, but wanted later in the month. Appt sched mailed. Dr. Michelle notified. * Progress Notes - Jumana Ku - 01/13/2019 2:59 PM EST Received panorex result from with a signature that appears to be a dentist signature on the report via email from patient. Emailed back the dental clearance form and request she please have her dentist complete and sign this form. documented in this encounter Plan of Treatment Upcoming Encounters Date Type Department Care Team (Late st Contact Info) Description 09/09/2024 11:[address] [facility] [address] [facility] [address] [place] [address] Cassia Verma [facility] [address] [place] [phone] documented as of this encounter Visit Diagnoses Not on filedocumented in this encounter Care Teams Tree Inspector Relationship Specialty Start Date End Date Marcelo Reese MD [address] [facility] [address] [place] [address] PCP - General 06/22/20 documented as of this encounter
--- OUTSIDE RECORDS SUMMARY | 2024-08-10 07:55 | XMS_ITS | Encounter Summary ---
Author Organization [facility] Address [address] [place] [address] Care Team Providers Care Inside Meter Tester Name Role Phone Marcelo Reese MD Primary Care Provider [phone] Encounter Details Date Type Department Care Team (Late st Contact Info) Description 05/15/2021 Lab Requisition [facility] [address] [place] [address] Manuel Menon MD [address] [address] Awaiting organ transplant status Social History Tobacco [...] Description 09/09/2024 11:00 AM EDT Social Work [facility] [address] [address] Cassia Verma [facility] 800 [place] [address] documented as of this encounter Visit Diagnoses Diagnosis Awaiting organ transplant status documented in this encounter Additional Health Concerns Assessment Noted Time A fall risk assessment has been complete d for the patient 12/17/2020 2:12 PM EST documented as of this encounter Care Teams Inside Meter Tester Relationship Specialty Start Date End Date Marcelo Reese MD [address] [place] [address] PCP - General 06/22/20 documented as of this encounter
--- OUTSIDE RECORDS SUMMARY | 2024-08-10 07:55 | XMS_ITS | Encounter Summary ---
Author Organization [facility] Address [address] [place] [address] Care Team Providers Care Actionscript Developer Name Role Phone Marcelo Reese MD Primary Care Provider + [phone] Encounter Details Date Type Department Care Team (Late Contact Info) Description 09/02/2018 Legacy OTTR Encounter Historical OTTR [address] [place] [address] [place] [address] Social History Tobacco Use Types Packs/Day Years Used Date Smoking Tobacco: Never Assessed Comments Unknown Sex and Gender Information Value Date Recorded Sex Assigned at Not on file Legal Sex Female 8:06 PM EDT Gender Identity Not on file Sexual Orientation Not on file documented as of this encounter Miscellaneous Notes * Progress Notes - Paz Downey - 09/02/2018 7:14 PM EDT Mailed reactivation letter to pt and cc'd referring MD and dialysis center. Copy placed in compliance. documented in this encounter Plan of Treatment Upcoming Encounters Date Type Department Care Team (Late Contact Info) Description 09/09/2024 11:00 AM EDT Social Work [facility] [address] [facility] [address] [place] [address] Cassia Verma [facility] 800 [place] [address] documented as of this encounter Visit Diagnoses Not on filedocumented in this encounter Care Teams Actionscript Developer Relationship Specialty Start Date End Date Marcelo Reese MD [address] [place] [address] PCP - General 06/22/20 documented as of this encounter
--- OUTSIDE RECORDS SUMMARY | 2024-08-10 07:55 | XMS_ITS | Encounter Summary ---
Author Organization [facility] Address [address] [place] [address] Care Team Providers Care Telephone Repairer Name Role Phone Marcelo Reese MD Primary Care Provider + [phone] Encounter Details Date Type Department Care Team (Late st Contact Info) Description 06/15/2018 Legacy OTTR Encounter Historical OTTR [address] [place] [address] Paz Downey [place] [id number] Social History Tobacco Use Types Packs/Day Years Used Date Smoking Tobacco: Never Assessed Comments Unknown Sex and Gender Information Value Date Recorded Sex Assigned at Not on file Legal Sex Female 8:06 PM EDT Gender Identity Not on file Sexual Orientation Not on file documented as of this encounter Miscellaneous Notes * Progress Notes - Paz Downey - 06/15/2018 2:33 PM EDT Received call from pt. Verified she is still not on dialysis and states her current weight is 110 lbs. BMI 20.1; pt does not need two-day stress test. Gave pt 08/30/18 annual eval appt details and she verbalized understanding. Will mail ppw. documented in this encounter Plan of Treatment Upcoming Encounters Date Type Department Care Team (Late st Contact Info) Description 09/09/2024 11:00 AM EDT Social Work [facility] [address] [place] [address] Cassia Verma [address] [address] documented as of this encounter Visit Diagnoses Not on filedocumented in this encounter Care Teams Telephone Repairer Relationship Specialty Start Date End Date Marcelo Reese MD [address] [facility] [address] [place], [place] [id number] PCP - General 06/22/20 documented as of this encounter
--- OUTSIDE RECORDS SUMMARY | 2024-08-10 07:55 | XMS_ITS | Encounter Summary ---
Author Organization [facility] Address [address] [place] [address] Care Team Providers Care Line Maintainer Section Name Role Phone Marcelo Reese MD Primary Care Provider + [phone] Encounter Details Date Type Department Care Team (Late st Contact Info) Description 07/13/2018 Legacy OTTR Encounter Historical OTTR 800 [place] [address] Emily Livingston, RN HOSPITAL KIDNEY [id number] [address] [place] [phone] Social History Tobacco Use Types Packs/Day Years Used Date Smoking Tobacco: Never Assessed Comments Unknown Sex and Gender Information Value Date Recorded Sex Assigned at Not on file Legal Sex Female 8:06 PM EDT Gender Identity Not on file Sexual Orientation Not on file documented as of this encounter Miscellaneous Notes * Progress Notes - Emily Livingston - 07/13/2018 11:22 AM EDT called pt, no answer, left VM for return call re: to check in, why pt cancelled psych appts in May, June, July, rescheduled for 07/30. Pt has annual testing 08/30. documented in this encounter Plan of Treatment Upcoming Encounters Date Type Department Care Team (Late st Contact Info) Description 09/09/2024 11:00 AM EDT Social Work [facility] [address] [place] [address] Cassia Verma [facility] 800 [place] [address] documented as of this encounter Visit Diagnoses Not on filedocumented in this encounter Care Teams Line Maintainer Section Relationship Specialty Start Date End Date Marcelo Reese MD [address] [facility] [address] [place] [address] PCP - General 06/22/20 documented as of this encounter
--- OUTSIDE RECORDS SUMMARY | 2024-08-10 07:55 | XMS_ITS | Encounter Summary ---
Author Organization [facility] Address [address] [place] [address] Care Team Providers Care Woodworking Craftsman Name Role Phone Marcelo Reese MD Primary Care Provider [phone] Encounter Details Date Type Department Care Team (Late st Contact Info) Description 03/14/2021 Lab Requisition [facility] [address] [place] [address] Manuel Menon MD [address] [address] Awaiting organ transplant status Social History Tobacco [...] Description 09/09/2024 11:00 AM EDT Social Work [facility] [address] [address] Cassia Verma [facility] 800 [place] [address] documented as of this encounter Procedures Procedure Name Priority Date/Time Associated Diagnosis Comments HLA ANTIBODY TESTING (LSA) Routine 03/12/2021 8:00 AM EST Awaiting organ transplant status documented in this encounter Results * HLA Antibody Testing (LSA) (03/12/2021 8:00 AM EST) Blood Venous blood specimen / Unknown 03/12/2021 8:00 AM EST 03/14/2021 12:30 PM EST us Manuel Menon MD LAB BLOOD ORDERABLES Final Res ult [facility] [address] documented in this encounter Visit Diagnoses Diagnosis Awaiting organ transplant status documented in this encounter Additional Health Concerns Assessment Noted Time A fall risk assessment has been complete d for the patient 12/17/2020 2:12 PM EST documented as of this encounter Care Teams Woodworking Craftsman Relationship Specialty Start Date End Date Marcelo Reese MD [address] [place] [address] PCP - General 06/22/20 documented as of this encounter
--- OUTSIDE RECORDS SUMMARY | 2024-08-10 07:55 | XMS_ITS | Encounter Summary ---
Author Organization [facility] Address [address] [place] [id number] Care Team Providers Care Shop Tailor Name Role Phone Marcelo Reese MD Primary Care Provider + [phone] Encounter Details Date Type Department Care Team (Late st Contact Info) Description 07/30/2018 Legacy OTTR Encounter Historical OTTR [address] [place] [address] Emily Livingston, RN HOSPITAL KIDNEY [id number] [address] [place] [address] Social History Tobacco Use Types Packs/Day Years Used Date Smoking Tobacco: Never Assessed Comments Unknown Sex and Gender Information Value Date Recorded Sex Assigned at Not on file Legal Sex Female 8:06 PM EDT Gender Identity Not on file Sexual Orientation Not on file documented as of this encounter Miscellaneous Notes * Progress Notes - Emily Livingston - 07/30/2018 11:27 AM EDT Called and s/w Jean Paul at [email or web address], verified that what pt was saying was accuarate and that psychhas been rescheduling pts appts. also verified that pt is to call next Thursday and they will get zita the August schedule. documented in this encounter Plan of Treatment Upcoming Encounters Date Type Department Care Team (Late st Contact Info) Description 09/09/2024 11:00 AM EDT Social Work [facility]plant [facility] [address] [facility] [address] [place] [address] Cassia Verma [facility] [address] [phone] documented as of this encounter Visit Diagnoses Not on filedocumented in this encounter Care Teams Shop Tailor Relationship Specialty Start Date End Date Marcelo Reese MD [address] [facility] [address] [place] [address] PCP - General 06/22/20 documented as of this encounter
--- OUTSIDE RECORDS SUMMARY | 2024-08-10 07:55 | XMS_ITS | Encounter Summary ---
Author Organization [facility] Address [address] [place] [address] Care Team Providers Care Healthcare Insurance Sales Agent Name Role Phone Marcelo Reese MD Primary Care Provider + [phone] Source Comments This information has been disclosed [...] release of HIV test results or diagnoses. [id number] Health Encounter Details Date Type Department Care Team (Late st Contact Info) Description 07/06/2024 Chart Note [facility] Kidney Transplant at [address] [address] Bia Vieira RN WL review- pt inactive on WL due to elevate PTH levels. Reviewed labs- Social History Tobacco Use Types Packs/Day Years [...] on file documented as of this encounter Progress Notes * Bia Vieira RN - 07/06/2024 1:07 PM EDT WL review- pt inactive on WL due to elevate PTH levels. Reviewed labs- Latest Reference Range & Units 06/01/24 00:00 06/28/24 00:00 PTH pg/mL 1,164 (E) 1,139 (E) Patient to remain inactive at this time, PTH level >1000. Will follow up in one month. documented in this encounter Plan of Treatment Not on file documented as of this encounter Visit Diagnoses Not on filedocumented in this encounter Care Teams Healthcare Insurance Sales Agent Relationship Specialty Start Date End Date Marcelo Reese MD [address] [place] [address] [place] [address] PCP - General Family Medicine 03/09/23 documented as of this encounter
--- OUTSIDE RECORDS SUMMARY | 2024-08-10 07:55 | XMS_ITS | Encounter Summary ---
Author Organization [facility] Address [address] [place] [id number] Care Team Providers Care Quality Control Director Name Role Phone Marcelo Reese MD Primary Care Provider [phone] Encounter Details Date Type Department Care Team (Late st Contact Info) Description 11/29/2021 Lab Requisition [facility] [address] [place] [address] Ankita Vicente MD [address] [address] End stage renal disease (CMS/HCC) Social History [...] [facility] [address] [address] Cassia Verma [facility] 800 [place] [address] documented as of this encounter Procedures Procedure Name Priority Date/Time Associated Diagnosis Comments DOS REGISTRATION Routine 07/16/2021 7:00 AM EDT End stage renal disease (CMS/HCC) documented in this encounter Results * DOS Registration Request (07/16/2021 7:00 AM EDT) DOS REGISTRATION REQUEST 11/29/2021 7:02 PM EDT HEALTHCARE LAB Comment:For registration req uest only. Other Topography unknown / Unknown 07/16/2021 7:00 AM EDT 11/29/2021 5:24 PM EDT us Ankita Vicente MD LAB BODY FLUIDS AND STOOLS ORDER SHANELL Final Result [facility] [address] [place] [address] documented in this encounter Visit Diagnoses Diagnosis End stage renal disease (CMS/HCC) End stage renal disease documented in this encounter Additional Health Concerns Assessment Noted Time A fall risk assessment has been complete d for the patient 12/17/2020 2:12 PM EST documented as of this encounter Care Teams Quality Control Director Relationship Specialty Start Date End Date Marcelo Reese MD [facility]0 [place] [address] PCP - General 06/22/20 documented as of this encounter
--- OUTSIDE RECORDS SUMMARY | 2024-08-10 07:55 | XMS_ITS | Encounter Summary ---
Author Organization [facility] Address [address] [place] [address] Care Team Providers Care Washer Hand Name Role Phone Marcelo Reese MD Primary Care Provider [phone] Encounter Details Date Type Department Care Team (Late st Contact Info) Description 11/23/2020 Lab Requisition [facility] [address] [place] [address] Manuel Menon MD [address] [address] Awaiting organ transplant status Social History Tobacco [...] Description 09/09/2024 11:00 AM EDT Social Work [facility] [address] [address] Cassia Verma [facility] 800 [place] [address] documented as of this encounter Procedures Procedure Name Priority Date/Time Associated Diagnosis Comments HLA ANTIBODY TESTING (LSA) Routine 11/22/2020 9:30 AM EDT Awaiting organ transplant status documented in this encounter Results * HLA Antibody Testing (LSA) (11/22/2020 9:30 AM EDT) Blood Venous blood specimen / Unknown 11/22/2020 9:30 AM EDT 11/23/2020 11:16 AM EDT us Manuel Menon MD LAB BLOOD ORDERABLES Final Res ult Performing Organization Address City/State/[facility] Co de Phone Number [facility] [address] documented in this encounter Visit Diagnoses Diagnosis Awaiting organ transplant status documented in this encounter Care Teams Washer Hand Relationship Specialty Start Date End Date Marcelo Reese MD [address] [place] [address] PCP - General 06/22/20 documented as of this encounter
--- OUTSIDE RECORDS SUMMARY | 2024-08-10 07:55 | XMS_ITS | Encounter Summary ---
Author Organization [facility] Address [address] [place] [address] Care Team Providers Care Clearing Tub Worker Name Role Phone Marceol Reese MD Primary Care Provider + [phone] Encounter Details Date Type Department Care Team (Late st Contact Info) Description 09/02/2018 Legacy OTTR Encounter Historical OTTR 800 [place] [address] Emily Livingston, RN HOSPITAL KIDNEY [id number] [address] [place] [address] Social History Tobacco Use Types Packs/Day Years Used Date Smoking Tobacco: Never Assessed Comments Unknown Sex and Gender Information Value Date Recorded Sex Assigned at Not on file Legal Sex Female 8:06 PM EDT Gender Identity Not on file Sexual Orientation Not on file documented as of this encounter Miscellaneous Notes * Progress Notes - Emily Livingston - 09/02/2018 4:08 PM EDT secure email sent with pts panorex documented in this encounter Plan of Treatment Upcoming Encounters Date Type Department Care Team (Late Contact Info) Description 09/09/2024 11:00 AM EDT Social Work [facility] [address] [facility] [address] [place] [address] Cassia Verma [facility] 800 [place] [address] documented as of this encounter Visit Diagnoses Not on filedocumented in this encounter Care Teams Clearing Tub Worker Relationship Specialty Start Date End Date Marcelo Reese MD [address] [place] [address] PCP - General 06/22/20 documented as of this encounter
--- OUTSIDE RECORDS SUMMARY | 2024-08-10 07:55 | XMS_ITS | Encounter Summary ---
Author Organization [facility] Address [address] [place] [address] Care Team Providers Care Pet Care Assistant Name Role Phone Marcelo Reese MD Primary Care Provider [phone] Reason for Visit * Reason Comments Med Refill Encounter Details Date Type Department Care Team (Late Contact Info) Description 03/25/2021 Refill Professional [facility]ph[facility] Mineral Metabolism [address], [address] [place] [address] Brandon Michelle MD [address] [place] [address] Social History Tobacco Use Types [...] as of this encounter Miscellaneous Notes * Telephone Encounter - No Phelps RN - 03/28/2021 7:52 AM EST Pt needs to contact provider for medication refills. documented in this encounter Plan of Treatment Upcoming Encounters Date Type Department Care Team (Late st Contact Info) Description 09/09/2024 11:[address] [facility] Trans[facility] [address] [place] [address] Cassia Verma [address] [address] documented as of this encounter Visit Diagnoses Not on filedocumented in this encounter Additional Health Concerns Assessment Noted Time A fall risk assessment has been complete d for the patient 12/17/2020 2:12 PM EST documented as of this encounter Care Teams Pet Care Assistant Relationship Specialty Start Date End Date Marcelo Reese MD [address] [address] PCP - General 06/22/20 documented as of this encounter
--- OUTSIDE RECORDS SUMMARY | 2024-08-10 07:55 | XMS_ITS | Patient Health Record ---
[facility] Address [address] [place] [id number] Care Team Providers Care Scorekeeper Name Role Phone Marcelo Reese Primary Care Provider Michelle Garcia Unavailable [phone] Allergies Allergen (clinical drug ingredient) Drug/Non Drug [...] 5.6 Performing Lab: Notes/Report: Test performed by [facility] [address] [place] [address] , [address], [place] [address] Simon Guerrero MD, Paraffin Plant Sweater Operator CLIA: [id number] Sodium 140 135-145 mmol/L Potassium 4.5 3.5-5.3 [...] Interpretation:Normal Performing Lab: Notes/Report: Test performed by [facility] [address] [place] [address] , [place] [address] Simon Guerrero MD, Paraffin Plant Sweater Operator CLIA: [id number] Luteinizing Hormone 8.80 LH Reference Range Men: [...] Interpretation:0.79 Performing Lab: Notes/Report: Test performed by [facility] [address] [place] [address] , [place] [address] Simon Guerrero MD, Paraffin Plant Sweater Operator CLIA: [id number] Thyroxine Free (free T4) 0.79 0.86-1.76 ng/dL P-Lipid Panel Reviewed date:09/22/2023 10:49:57 PM Interpretation:Normal Performing Lab: Notes/Report: Test performed by [facility], [address] , [address], [place] [address] Simon Guerrero MD, Paraffin Plant Sweater Operator CLIA: [id number] Cholesterol 136 <200 mg/dL Triglycerides 101 <150 [...] Interpretation:10.4 Performing Lab: Notes/Report: Test performed by [facility], [facility] , [address], [place] [address] Simon Guerrero MD, Paraffin Plant Sweater Operator CLIA: [id number] TSH reflex to FT4 10.40 0.43-5.25 mU/L CBC Fingerstick (in house) Reviewed date:10/01/2023 12:39:26 [...] - 38 plat 267 100 - 400 colonoscopy Reviewed date:09/04/2023 07:56:50 AM Interpretation: Performing Lab: Notes/Report: Medications Medication SIG (Take, Route, Frequency, Duration) Notes Start Date End Date Status Calcitriol 0.25 MCG 1 capsule Orally Onc e a day Active Carvedilol 6.25 MG 1 tablet with food Orally Twice a day; Duration: 30 day(s) Active FLUoxetine HCl 20 MG 1 capsule Orally On ce a day; Duration: 30 day(s) Active FLUoxetine HCl 60 MG 1 tab(s) orally onc e a day (in the morning); Duration: 90 days Not-Taking Levothyroxine Sodium 50 MCG 1 tablet in the morning on an empty stomach Orally Once a day; Duration: 30 day(s) 09/22/2023 Active Potassium Chloride ER 20 MEQ 3 tab(s) orally once a day Active Olmesartan Medoxomil 5 MG 1 tablet Orall y Once a day Active Jolessa 0.15-0.03 MG 1 tab(s) orally onc e a day; Duration: 91 days Not-Rusty g Allopurinol 100 MG 1 tab(s) orally 2 times a day; Duration: 30 day(s) Not-Taking Ondansetron 4 MG 1 tablet on the tong ue and allow to dissolve Orally every 6 hours prn; Duration: 10 days 08/11/2022 Not-Rusty patiño Immunizations Vaccine Route Administration Date Status Comme nts xFlu shot-36 months and older IM Intramuscular 12/22/2007 Administered tuberculin (ppd) ID Intradermal 03/27/2005 Administered Tetanus Tdap-Adacel (over 7yrs) IM Intramuscular 07/04/2015 Administered Prevnar (PCV13) IM Intramuscular 08/25/2017 Administered PNEUMOVAX 23 VACCINE Unknown 10/28/2017 Administered Hepatitis B (20 and more) Unknown 11/05/2019 Administer ed Hepatitis B (20 and more) Unknown 04/08/2020 Administer ed Hepatitis B (20 and more) Unknown 05/19/2020 Administer ed Hepatitis B (20 and more) Unknown 10/13/2020 Administer ed Hepatitis A (adult) Unknown 01/26/2018 Administered Hepatitis A (adult) IM Intramuscular 07/29/2018 Administer ed Fluzone Quad (6months&older) IM Intramuscular 12/15/2018 Administered Fluzone Quad (6months&older) IM Intramuscular 11/05/2019 Administered Fluzone Quad (6months&older) IM Intramuscular 12/27/2021 Administered Fluzone PF Quad (6-35 months) Unknown 10/28/2017 Administered Fluzone PF Quad (6-35 months) Unknown 12/15/2018 Administered COVID 19 Moderna Unknown 01/11/2021 Administered COVID 19 Rukhsana Unknown 04/18/2020 Administered Problems Problem Type SNOMED Code ICD Code Onset Dates Problem Status W/U Status Risk Notes Problem Renal failure syndrome (36901277) Renal insufficiency syndrome NOS (586) Active confirmed Problem Gout (70708390) Gout NOS (274.9) Active confirm ed Problem Gout (80091346) Gout (M10.9) Active confirmed Problem Anorexia (05775137) Anorexia (R63.0) Active con firmed Problem Bulimia nervosa (73060087) Bulimia nervosa (F50.2) Active confirmed Problem 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) Active confirmed Problem Disorder of kidney and/or ureter (277298474) Other specified disorders of kidney and ureter (N28.89) Active confirmed Problem Renal insufficiency (361836395) Renal insufficiency (N28.9) Active confirmed Problem New daily persistent headache (894355397125502) New daily persistent headache (G44.52) Active confirmed Problem Chronic renal failur e (78527476) Chronic renal failure (N18.9) Active confirmed Problem Menstrual disorder (655883793) Irregular menses (N92.6) Active confirmed Problem Sialoadenitis (15680570) Parotitis, acute (K11.21) Active confirmed Problem Pure hypercholesterolemia (055254683) Pure hypercholesterolemia (E78.00) Active confirmed Problem Anorexia nervosa (87235458) Anorexia nervosa (F50.00) Active confirmed Problem Renal failure syndrome (86492264) Renal failure, unspecified chronicity (N19) Active confirmed Vital Signs Heart Rate 73 /min 09/18/2023 Blood pressure diastolic 58 mm Hg 09/18/2023 Height 63 in 09/18/2023 Blood pressure systolic 98 mm Hg 09/18/2023 Weight 97.8 lbs 09/18/2023 BMI 17.32 kg/m2 09/18/2023 Encounters Encounter Location Date Provider [facility] [address] [place] [id number] 09/18/2023 Michelle Jose Renal insufficiency N28.9 ; Hypertension secondary to other renal disorders I15.1 ; Diabetes mellitus screening Z13.1 ; Lipid screening Z13.220 ; Hypokalemia E87.6 ; Irregular menses N92.6 and Blood in stool K92.1 [facility] [address] [place] [id number] 09/26/2023 Michelle Jose Blood in stool K92.1 [facility] [address] [place] [id number] 08/12/2023 Marcelo [place] [facility] [address] [place] [id number] 09/21/2023 Michelle Jose Assessments Encounter Date Diagnosis (ICD Code) Assessment Notes Treatment Notes Treatment Clinical Notes Section Notes 09/18/2023 Hypertension secondary to other renal disorders (ICD-10 - I15.1) 09/18/2023 Renal insufficiency (ICD-10 - N28.9) 09/26/2023 Blood in stool (ICD-10 - K92.1) 09/18/2023 Diabetes mellitus screening (ICD-10 - Z13.1) 09/18/2023 Lipid screening (ICD-10 - Z13.220) 09/18/2023 Hypokalemia (ICD-10 - E87.6) 09/18/2023 Irregular menses (ICD-10 - N92.6) 09/18/2023 Blood in stool (ICD-10 - K92.1) H&H has decreased. Will recheck next week along with an INR. Patient called [facility] and spoke with the physician's office who did her c-scope. They told her if she had anymore rectal bleeding she needed to come to their ER. She had quite a bit 2 days ago and a small amount yesterday but has seen no blood today. Will keep monitoring. Plan Of Treatment Pending Test Test Name Order Date CXR 01/26/2023 Mammogram 07/28/2024 Insurance Providers Payer Name Payer Address Payer Phone Subscriber Number Group Number Insured Name Patient Relationship to Insured Coverage Start Date Coverage End Date MEDICARE PART B [address] [address] [place] [id number] HERMELINDA CALIX Self - patient is the insured [facility] [address] [place] [address] [id number] HERMELINDA CALIX Self - patient is the insured Medications Administered Medication Instructions Date of Administration Dosage Notes rocephin one gram IM 10/28/2006 1 gram Medical (General) History Medical History History ICD Code Anorexia PATIENT DOES NOT WANT TO KN OW HER WEIGHT Lactose Intolerance Gout Renal Insufficiency, Dx: 2013, eGFR in t 's, s/p kidney biopsy Chronic kidney disease, stage V as of , on transplant list with 10/10/2020-peritoneal dialysis ; she does at home nightly; remains on transplant list; has monthly labs 2022- Hemodialysis on Thu & Thu Surgical History Surgery Date(Month/Year) Laproscopic cholecystectomy 2005 kidney biopsy June 2014 Colonoscopy - [facility] 09/03/2023 Hospitalization History Reason Date(Month/Year) [facility] ER to [facility] - Small Tear following Colonoscopy 09/05/2023
--- OUTSIDE RECORDS SUMMARY | 2024-08-10 07:55 | XMS_ITS | Encounter Summary ---
Author Organization [facility] Address [address] [place] [address] Care Team Providers Care Field Training Manager Name Role Phone Marcelo Reese MD Primary Care Provider + [phone] Encounter Details Date Type Department Care Team (Late st Contact Info) Description 09/01/2018 [facility] Committee Historical OTTR [address] [place] [address] Jose Angel Bowman, ADAN [address] [facility] [address] [place] [address] Social History Tobacco Use Types Packs/Day Years Used Date Smoking Tobacco: Never Assessed Comments Unknown Sex and Gender Information Value Date Recorded Sex Assigned at Not on file Legal Sex Female 8:06 PM EDT Gender Identity Not on file Sexual Orientation Not on file documented as of this encounter Miscellaneous Notes * Progress Notes - Jose Angel Bowman - 09/01/2018 4:17 PM EDT 08/30. Annual. 47-year-old female, with a history of chronic kidney disease stage IV/5 of unknown etiology. She has not started any type of renal replacement therapy, nor does she have any access either. She will see social work and have cardiac testing as part of her annual testing She is listed but inactive at our facility secondary to concerns over history of bulimia with purging, she needed 6 months without purging and clearance from the [facility] psychiat[facility]. Also needs dental clearance. Patient is to be seen by psychiatry today. She has not been hospitalized in the last 12 months. Reports being physically active, walks on a daily basis, he works out regularly as well. 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 Denies any tobacco, alcohol, recreational drug use; alcohol use maybe once a month. -She has a history of anorexia and bulimia for over 20 years, with abuse of diuretics and laxatives. She attended an inpatient rehab for eating disorders in 2004. She continues to follow-up with her therapist twice a month, reports going well, now that she has been taking Prozac on a regular basis;feels a lot better. States last time she had any purging episodes was in October 2017. She is now eating better and is actually enjoying the food that she eats. She does request that her weight actual numbers not to be discussed with her Her weight today is 106.9 pounds, BMI 19.5. Her weight in July 2017 was 108 pounds. She otherwise looks well, in good spirits. -Her is a potential living donor possibility * Progress Notes - Emily Livingston - 09/01/2018 9:35 AM EDT Reviewed [facility]- patient needs to follow up with a dentist, this does not impede her from being listed as active. Psych has cleared, ok to list as active. * Progress Notes - Leslie Woodward - 11/11/2017 10:13 AM EDT Evaluation reviewed; ok to list inactive. FS 90%. Patient will need to demonstrate 6 months of no purging. Will need to be seen in clinic by surgeon and RIA in March. Therapy records will need to be obtained at that time. documented in this encounter Plan of Treatment Upcoming Encounters Date Type Department Care Team (Late st Contact Info) Description 09/09/2024 11:00 AM EDT Social Work [facility] [address] [place] [address] Cassia Verma [facility] [address] [place] [id number] documented as of this encounter Visit Diagnoses Not on filedocumented in this encounter Care Teams Field Training Manager Relationship Specialty Start Date End Date Marcelo Reese MD [address] [facility] [address] [place] [address] PCP - General 06/22/20 documented as of this encounter
--- OUTSIDE RECORDS SUMMARY | 2024-08-10 07:55 | XMS_ITS | Encounter Summary ---
Author Organization [facility] Address [address] [place] [address] Care Team Providers Care Sql Ssrs Developer Name Role Phone Marcelo Reese MD Primary Care Provider [phone] Encounter Details Date Type Department Care Team (Late st Contact Info) Description 04/10/2021 Lab Requisition [facility] 800 [place] [address] Manuel Meonn MD [address] [address] Awaiting organ transplant status Social History Tobacco [...] Work [facility] [address] [address] Cassia Verma [facility] 800 [place] [address] documented as of this encounter Procedures Procedure Name Priority Date/Time Associated Diagnosis Comments HLA ANTIBODY TESTING (LSA) Routine 04/09/2021 8:00 AM EST Awaiting organ transplant status documented in this encounter Results * HLA Antibody Testing (LSA) (04/09/2021 8:00 AM EST) Blood Venous blood specimen / Unknown 04/09/2021 8:00 AM EST 04/10/2021 10:37 AM EST us Manuel Menon MD LAB BLOOD ORDERABLES Final Res ult [facility] [address] documented in this encounter Visit Diagnoses Diagnosis Awaiting organ transplant status documented in this encounter Additional Health Concerns Assessment Noted Time A fall risk assessment has been complete d for the patient 12/17/2020 2:12 PM EST documented as of this encounter Care Teams Sql Ssrs Developer Relationship Specialty Start Date End Date Marcelo Reese MD [address] [place] [address] PCP - General 06/22/20 documented as of this encounter
--- OUTSIDE RECORDS SUMMARY | 2024-08-10 07:55 | XMS_ITS | Encounter Summary ---
Author Organization [facility] Address [address] [place] [address] Care Team Providers Care Seo Executive Name Role Phone Marcelo Reese MD Primary Care Provider [phone] Encounter Details Date Type Department Care Team (Late st Contact Info) Description 10/25/2021 Lab Requisition [facility] 800 [place] [address] Ankita Vicente MD [address] [address] Awaiting organ transplant status; End stage renal [...] Description 09/09/2024 11:00 AM EDT Social Work [facility] [address] [address] Cassia Verma [facility] [address] [place] [id number] documented as of this encounter Procedures Procedure Name Priority Date/Time Associated Diagnosis Comments HLA ANTIBODY TESTING (LSA) Routine 10/23/2021 8:30 AM EDT Awaiting organ transplant status End stage renal disease (CMS/HCC) documented in this encounter Results * HLA Antibody Testing (LSA) (10/23/2021 8:30 AM EDT) Blood Venous blood specimen / Unknown 10/23/2021 8:30 AM EDT 10/25/2021 11:14 AM EDT us Ankita Vicente MD LAB BLOOD ORDERABLES Final Resul t Performing Organization Address City/State/[facility] Co de Phone Number [facility] [address] documented in this encounter Visit Diagnoses Diagnosis Awaiting organ transplant status End stage renal disease (CMS/HCC) End stage renal disease documented in this encounter Additional Health Concerns Assessment Noted Time A fall risk assessment has been complete d for the patient 12/17/2020 2:12 PM EST documented as of this encounter Care Teams Seo Executive Relationship Specialty Start Date End Date Marcelo Reese MD [address] [place] [address] PCP - General 06/22/20 documented as of this encounter
--- OUTSIDE RECORDS SUMMARY | 2024-08-10 07:55 | XMS_ITS | Encounter Summary ---
Author Organization [facility] Address [address] [place] [address] Care Team Providers Care Associate Agent Insurance Sales Name Role Phone Marcelo Reese MD Primary Care Provider [phone] Encounter Details Date Type Department Care Team (Late st Contact Info) Description 06/13/2021 Lab Requisition [facility] [address] [place] [address] Manuel Menon MD [address] [address] Awaiting organ transplant status Social History Tobacco [...] Description 09/09/2024 11:00 AM EDT Social Work [facility] [address] [address] Cassia Verma [facility] 800 [place] [address] documented as of this encounter Visit Diagnoses Diagnosis Awaiting organ transplant status documented in this encounter Additional Health Concerns Assessment Noted Time A fall risk assessment has been complete d for the patient 12/17/2020 2:12 PM EST documented as of this encounter Care Teams Associate Agent Insurance Sales Relationship Specialty Start Date End Date Marcelo Reese MD [address] [place] [address] PCP - General 06/22/20 documented as of this encounter
--- OUTSIDE RECORDS SUMMARY | 2024-08-10 07:55 | XMS_ITS | Encounter Summary ---
Author Organization [facility] Address [address] [place] [id number] Care Team Providers Care Coverage Specialist Rn Name Role Phone Marcelo Reese MD Primary Care Provider + [phone] Encounter Details Date Type Department Care Team (Late st Contact Info) Description 07/13/2018 [facility] Encounter Historical OTTR 800 [place] [address] Emily Livingston, RN [id number] [address] [place] [address] Social History Tobacco Use Types Packs/Day Years Used Date Smoking Tobacco: Never Assessed Comments Unknown Sex and Gender Information Value Date Recorded Sex Assigned at Not on file Legal Sex Female 8:06 PM EDT Gender Identity Not on file Sexual Orientation Not on file documented as of this encounter Miscellaneous Notes * Progress Notes - Emily Livingston - 07/13/2018 3:39 PM EDT pt returned call. Asked her about why she has missed her psych appt in May and June, she said the psych clinic rescheduled her due the doctors mom being ill and dying. She said she had an appt this week, but had to reschedule due to work but that she does have an appt next week. Pt requested to see txp surgeon earlier on her annual visit in August, told her there is a 1pm time slot appt available,she agreed to that time rather than 2:30. All questions asked were answered to stated satisfaction. documented in this encounter Plan of Treatment Upcoming Encounters Date Type Department Care Team (Late st Contact Info) Description 09/09/2024 11:00 AM EDT Social Work [facility] [address] [facility] [address] [place] [address] Cassia Verma [place] [phone] documented as of this encounter Visit Diagnoses Not on filedocumented in this encounter Care Teams Coverage Specialist Rn Relationship Specialty Start Date End Date Marcelo Reese MD [address] [facility] [address] [place] [address] PCP - General 06/22/20 documented as of this encounter
--- OUTSIDE RECORDS SUMMARY | 2024-08-10 07:55 | XMS_ITS | Encounter Summary ---
Author Organization [facility] Address [address] [place] [address] Care Team Providers Care Class C Driver Name Role Phone Marcelo Reese MD Primary Care Provider + [phone] Encounter Details Date Type Department Care Team (Late st Contact Info) Description 10/08/2018 [facility] Encounter Historical OTTR 800 [place] [address] Emily Livingston, RN [id number] 800 [place] [address] Social History Tobacco Use Types Packs/Day Years Used Date Smoking Tobacco: Never Assessed Comments Unknown Sex and Gender Information Value Date Recorded Sex Assigned at Not on file Legal Sex Female 8:06 PM EDT Gender Identity Not on file Sexual Orientation Not on file documented as of this encounter Miscellaneous Notes * Progress Notes - Emily Livingston - 10/08/2018 2:31 PM EDT called pt to see if she had f/u with a dentist, she said she had some teeth extracted, by Dr. Colvin in [place], [place] (phone) [phone]. Left VM at Dr. Barton office for extraction records documented in this encounter Plan of Treatment Upcoming Encounters Date Type Department Care Team (Late st Contact Info) Description 09/09/2024 11:00 AM EDT Social Work [facility] [address] [facility] [address] [place] [address] Cassia Verma [facility] [address] [place] [phone] documented as of this encounter Visit Diagnoses Not on filedocumented in this encounter Care Teams Class C Driver Relationship Specialty Start Date End Date Marcelo Reese MD [address] [facility] [address] [place] [address] PCP - General 06/22/20 documented as of this encounter
--- OUTSIDE RECORDS SUMMARY | 2024-08-10 07:55 | XMS_ITS ---
Author Organization [facility] Address [address] [place] [address] Care Team Providers Care Chief Wellness Officer Name Role Phone Marcelo Reese MD Primary Care Provider + [phone] Transplant Episode Kidney Candidate [facility] ([place], [place]) - [facility] Center waitlisted on 10/06/2023 Marked as Inactive on 03/25/2024 Reason: Temporarily too Sick Kidney CoordinatorBia Vieira RN Phone: N/A Fax: N/A Email: N/A Scores Score Value Updated Exceptions/Reas ons CPRA Not available EPTS (Calc) 31 08/10/2024 [place] Organ Diagnosis Organ Primary Contributory Kidney Hypertensive Nephrosclerosis Care Team Name Role Phone Fax Email Bia Vieira RN Kidney Coordinator N/A N/A N/A Jose Patterson MD Txp Analytical Strategist [phone] N/A Aaliyah Vargas RN Txp Pre Coordinator N/A N/A N/A Brandon Michelle MD Referring Physician [phone] N/A Events Pre-Transplant Referred: 07/11/2022 Evaluation began: 12/01/2022 Committee: 10/05/2023 UNOS qualified: 05/21/2020 Center waitlisted: 10/06/2023 Dialysis History Dialysis History Start End Type Comments Center 05/21/2020 Hemo MWF [facility] Dialysis Center Information Center Phone Fax Address [facility] [phone] [place] [address]
--- OUTSIDE RECORDS SUMMARY | 2024-08-10 07:55 | XMS_ITS | Encounter Summary ---
Author Organization [facility] Address [address] [place] [address] Care Team Providers Care Hot Stamp Operator Name Role Phone Marcelo Reese MD Primary Care Provider [phone] Encounter Details Date Type Department Care Team (Late st Contact Info) Description 09/11/2021 Lab Requisition [facility] [address] [place] [address] Manuel Menon MD [address] [address] Awaiting organ transplant status Social History Tobacco [...] Work [facility] [address] [address] Cassia Verma [facility] 800 [place] [address] documented as of this encounter Procedures Procedure Name Priority Date/Time Associated Diagnosis Comments HLA ANTIBODY TESTING (LSA) Routine 09/10/2021 8:00 AM EDT Awaiting organ transplant status documented in this encounter Results * HLA Antibody Testing (LSA) (09/10/2021 8:00 AM EDT) Blood Venous blood specimen / Unknown 09/10/2021 8:00 AM EDT 09/11/2021 11:45 AM EDT us Manuel Menon MD LAB BLOOD ORDERABLES Final Res ult [facility] [address] documented in this encounter Visit Diagnoses Diagnosis Awaiting organ transplant status documented in this encounter Additional Health Concerns Assessment Noted Time A fall risk assessment has been complete d for the patient 12/17/2020 2:12 PM EST documented as of this encounter Care Teams Hot Stamp Operator Relationship Specialty Start Date End Date Marcelo Reese MD [address] [place] [address] [address], [place] [address] PCP - General 06/22/20 documented as of this encounter
--- OUTSIDE RECORDS SUMMARY | 2024-08-10 07:55 | XMS_ITS | Encounter Summary ---
Author Organization [facility] Address [address] [place] [id number] Care Team Providers Care Real Estate Portfolio Manager Name Role Phone Marcelo Reese MD Primary Care Provider [phone] Encounter Details Date Type Department Care Team (Late st Contact Info) Description 09/20/2020 Lab Requisition [facility] 800 [place] [address] Manuel Menon MD [address] [address] Awaiting organ transplant status Social History Tobacco [...] 09/09/2024 11:[address] [facility] [address] [address] Cassia Verma [facility] 800 [place] [address] documented as of this encounter Procedures Procedure Name Priority Date/Time Associated Diagnosis Comments HLA ANTIBODY TESTING (LSA) Routine 09/18/2020 9:00 AM EDT Awaiting organ transplant status documented in this encounter Results * HLA Antibody Testing (LSA) (09/18/2020 9:00 AM EDT) Blood Venous blood specimen / Unknown 09/18/2020 9:00 AM EDT 09/20/2020 11:23 AM EDT us Manuel Menon MD LAB BLOOD ORDERABLES Final Res ult Performing Organization Address City/State/[facility] Co de Phone Number [facility] [address] documented in this encounter Visit Diagnoses Diagnosis Awaiting organ transplant status documented in this encounter Care Teams Real Estate Portfolio Manager Relationship Specialty Start Date End Date Marcelo Reese MD [address] [place] [address] PCP - General 06/22/20 documented as of this encounter
--- OUTSIDE RECORDS SUMMARY | 2024-08-10 07:55 | XMS_ITS | Encounter Summary ---
Author Organization [facility] Address [address] [place] [address] Care Team Providers Care Track Manager Name Role Phone Mareclo Reese MD Primary Care Provider + [phone] Encounter Details Date Type Department Care Team (Late st Contact Info) Description 08/30/2018 Legacy OTTR Encounter Historical OTTR 800 [place] [address] [place] [address] Social History Tobacco Use Types Packs/Day Years Used Date Smoking Tobacco: Never Assessed Comments Unknown Sex and Gender Information Value Date Recorded Sex Assigned at Not on file Legal Sex Female 8:06 PM EDT Gender Identity Not on file Sexual Orientation Not on file documented as of this encounter Miscellaneous Notes * Progress Notes - January Walker - 08/30/2018 9:11 AM EDT Pt reports insurance has changed through her employer from [employer] to [facility]. Please update insurance clearance. Thanks!! documented in this encounter Plan of Treatment Upcoming Encounters Date Type Department Care Team (Late st Contact Info) Description 09/09/2024 11:00 AM EDT Social Work [facility] Transplant Center [address] [facility] [address] [place] [address] Cassia Verma [facility] 800 [place] [address] documented as of this encounter Visit Diagnoses Not on filedocumented in this encounter Care Teams Track Manager Relationship Specialty Start Date End Date Marcelo Reese MD 1210 [facility] [address] [place] [address] PCP - General 06/22/20 documented as of this encounter
--- OUTSIDE RECORDS SUMMARY | 2024-08-10 07:55 | XMS_ITS | Encounter Summary ---
Author Organization [facility] Address [address] [place] [address] Care Team Providers Care Artificial Candy Maker Name Role Phone Marcelo Reese MD Primary Care Provider + [phone] Source Comments This information has been disclosed [...] release of HIV test results or diagnoses. [id number] Health Encounter Details Date Type Department Care Team (Late st Contact Info) Description 06/22/2024 Telephone [facility] Kidney Transplant at [address] [address] Darya Chatman MA Social History Tobacco [...] encounter Miscellaneous Notes * Telephone Encounter - Darya Chatman MA - 06/22/2024 10:02 AM EDT Outgoing call to patient DU requesting last PTH reports it being 1164 on 06-01-24 will follow-up next week for this months results documented in this encounter Plan of Treatment Not on file documented as of this encounter Visit Diagnoses Not on filedocumented in this encounter Care Teams Artificial Candy Maker Relationship Specialty Start Date End Date Marcelo Reese MD [address] [place] [address] PCP - General Family Medicine 03/09/23 documented as of this encounter
--- OUTSIDE RECORDS SUMMARY | 2024-08-10 07:55 | XMS_ITS | Encounter Summary ---
Author Organization [facility] Address [address] [place] [address] Care Team Providers Care Skiver Blockers Name Role Phone Marcelo Reese MD Primary Care Provider + [phone] Encounter Details Date Type Department Care Team (Late st Contact Info) Description 12/18/2020 Lab Requisition [facility] 800 [place] [address] Manuel Menon MD [address] [address] Awaiting organ transplant status Social History Tobacco [...] on file Sexual Orientation Not on file COVID-19 Exposure Response Date Recorded In the last month, have you been in contact with someone who was confirmed or suspected to have Coronavirus / COVID-19? No / Unsure 12/17/2020 10:42 AM EST documented as of this encounter Plan of Treatment Upcoming Encounters Date Type Department Care Team (Late Contact Info) Description 09/09/2024 11:00 AM EDT Social Work [facility] Transplant Center [address] [address] [place] [address] documented as of this encounter Procedures Procedure Name Priority Date/Time Associated Diagnosis Comments HLA ANTIBODY TESTING (LSA) Routine 12/14/2020 9:30 AM EDT Awaiting organ transplant status documented in this encounter Results * HLA Antibody Testing (LSA) (12/14/2020 9:30 AM EDT) Blood Venous blood specimen / Unknown 12/14/2020 9:30 AM EDT 12/18/2020 11:06 AM EST us Manuel Menon MD LAB BLOOD ORDERABLES Final Res ult [address] documented in this encounter Visit Diagnoses Diagnosis Awaiting organ transplant status documented in this encounter Care Teams Skiver Blockers Relationship Specialty Start Date End Date Marcelo Reese MD [address] [place] [address] [address] PCP - General 06/22/20 documented as of this encounter
--- OUTSIDE RECORDS SUMMARY | 2024-08-10 07:55 | XMS_ITS | Encounter Summary ---
Author Organization [facility] Address [address] [place] [address] Care Team Providers Care Digital Manager Name Role Phone Marcelo Reese MD Primary Care Provider [phone] Encounter Details Date Type Department Care Team (Late st Contact Info) Description 10/22/2020 Lab Requisition [facility] 800 [place] [address] Manuel Menon MD [address] [address] Chronic kidney disease, stage 5 (CMS/HCC) Social History Tobacco Use Types Packs/Day [...] Work [facility] [address] [address] Cassia Verma [facility] 800 [place] [address] documented as of this encounter Procedures Procedure Name Priority Date/Time Associated Diagnosis Comments HLA ANTIBODY TESTING (LSA) Routine 2020 9:30 AM EDT Chronic kidney disease, stage 5 (CMS/HCC) documented in this encounter Results * HLA Antibody Testing (LSA) (2020 9:30 AM EDT) Blood Venous blood specimen / Unknown 2020 9:30 AM EDT 10/22/2020 11:37 AM EDT us Manuel Menon MD LAB BLOOD ORDERABLES Final Res ult [facility] [address] documented in this encounter Visit Diagnoses Diagnosis Chronic kidney disease, stage 5 (CMS/HCC) documented in this encounter Care Teams Digital Manager Relationship Specialty Start Date End Date Marcelo Reese MD [address] [place] [address] PCP - General 06/22/20 documented as of this encounter
--- OUTSIDE RECORDS SUMMARY | 2024-08-10 07:55 | XMS_ITS | Encounter Summary ---
Author Organization [facility] Address [address] [place] [address] Care Team Providers Care Motorcycle Tester Name Role Phone Marcelo Reese MD Primary Care Provider + [phone] Source Comments This information has been disclosed [...] release of HIV test results or diagnoses. [id number] Health Encounter Details Date Type Department Care Team (Late st Contact Info) Description 07/06/2024 Telephone [facility] Kidney Transplant at [address] [address] Darya Chatman MA Social History [...] as of this encounter Progress Notes * Darya Chatman MA - 07/06/2024 8:37 AM EDT Outgoing call to to for pth level documented in this encounter Plan of Treatment Not on file documented as of this encounter Visit Diagnoses Not on filedocumented in this encounter Care Teams Motorcycle Tester Relationship Specialty Start Date End Date Marcelo Reese MD [address] [place] [address] PCP - General Family Medicine 03/09/23 documented as of this encounter
--- OUTSIDE RECORDS SUMMARY | 2024-08-10 07:55 | XMS_ITS | Encounter Summary ---
Author Organization [facility] Address [address] [place] [id number] Care Team Providers Care Cryptologic Linguist Name Role Phone Marcelo Reese MD Primary Care Provider + [phone] Encounter Details Date Type Department Care Team (Late st Contact Info) Description 09/02/2018 Legacy OTTR Encounter Historical OTTR 800 [place] [address] Emily Livingston, RN HOSPITAL KIDNEY [id number] 800 [place] [address] Social History Tobacco Use Types Packs/Day Years Used Date Smoking Tobacco: Never Assessed Comments Unknown Sex and Gender Information Value Date Recorded Sex Assigned at Not on file Legal Sex Female 8:06 PM EDT Gender Identity Not on file Sexual Orientation Not on file documented as of this encounter Miscellaneous Notes * Progress Notes - Emily Livingston - 09/02/2018 2:04 PM EDT called pt to let her know about committee decision to re-activate. made her aware she needs to see a dentist, she said she has an appt on 09/08, she requested to have report of her Panorex, will secure email it to her. reviewed when to contact the coordinator, high risk donors and made her aware shemight want to consider getting the Hep B series. she verbalized understanding. all questions asked were answered. UNET/OTTR updated. reactivation letter autocaptured, please mail, JF notified documented in this encounter Plan of Treatment Upcoming Encounters Date Type Department Care Team (Late st Contact Info) Description 09/09/2024 11:00 AM EDT Social Work [facility] Transplant Center [address] [place] [address] Cassia Verma [facility] [address] [place] [phone] documented as of this encounter Visit Diagnoses Not on filedocumented in this encounter Care Teams Cryptologic Linguist Relationship Specialty Start Date End Date Marcelo Reese MD 1210 [facility] [address] [place] [address] PCP - General 06/22/20 documented as of this encounter
--- OUTSIDE RECORDS SUMMARY | 2024-08-10 07:55 | XMS_ITS | Encounter Summary ---
Author Organization [facility] Address [address] [place] [address] Care Team Providers Care Primary Special Education Teacher Name Role Phone Marcelo Reese MD Primary Care Provider + [phone] Source Comments This information has been disclosed [...] release of HIV test results or diagnoses. [id number] Health Encounter Details Date Type Department Care Team (Late st Contact Info) Description 07/06/2024 Chart Note [facility] Kidney Transplant at [address] [place] [address] Darya Chatman MA Social History Tobacco [...] Date/Time Associated Diagnosis Comments PTH, INTACT Routine 06/28/2024 documented in this encounter Results * PTH (06/28/2024) PTH 1,139 pg/mL Serum us Historical Provider LAB BLOOD ORDERABLES Tiana l Result documented in this encounter Visit Diagnoses Not on filedocumented in this encounter Care Teams Primary Special Education Teacher Relationship Specialty Start Date End Date Marcelo Reese MD [address] [place] [address] PCP - General Family Medicine 03/09/23 documented as of this encounter
--- OUTSIDE RECORDS SUMMARY | 2024-08-10 07:55 | XMS_ITS | Encounter Summary ---
Author Organization [facility] Address [address] [place] [id number] Care Team Providers Care Trimmer And Borer Machine Operator Name Role Phone Marcelo Reese MD Primary Care Provider + [phone] Encounter Details Date Type Department Care Team (Late st Contact Info) Description 06/14/2018 Legacy OTTR Encounter Historical OTTR 800 [place] [address] Jumana Ku, RN [facility] Social History Tobacco Use Types Packs/Day Years Used Date Smoking Tobacco: Never Assessed Comments Unknown Sex and Gender Information Value Date Recorded Sex Assigned at Not on file Legal Sex Female 8:06 PM EDT Gender Identity Not on file Sexual Orientation Not on file documented as of this encounter Miscellaneous Notes * Progress Notes - Jumana Ku - 06/14/2018 4:17 PM EDT Annual orders placed in [facility]. Please schedule for August. Needs mammogram and colonoscopy (now required over age 45). documented in this encounter Plan of Treatment Upcoming Encounters Date Type Department Care Team (Late st Contact Info) Description 09/09/2024 11:00 AM EDT Social Work [facility] Transplant Center [address] [facility] [address] [place] [address] Cassia Verma [facility] [address] [place] [phone] documented as of this encounter Visit Diagnoses Not on filedocumented in this encounter Care Teams Trimmer And Borer Machine Operator Relationship Specialty Start Date End Date Marcelo Reese MD [address] [facility] [address] [place] [address] PCP - General 06/22/20 documented as of this encounter
--- OUTSIDE RECORDS SUMMARY | 2024-08-10 07:55 | XMS_ITS | Encounter Summary ---
Author Organization [facility] Address [address] [place] [address] Care Team Providers Care Cut Off Saw Operator Name Role Phone Marcelo Reese MD Primary Care Provider + [phone] Encounter Details Date Type Department Care Team (Late st Contact Info) Description 09/01/2018 Legacy OTTR Encounter Historical OTTR 800 [place] [address] Emily Livingston, RN HOSPITAL KIDNEY [id number] 800 [place] [address] Social History Tobacco Use Types Packs/Day Years Used Date Smoking Tobacco: Never Assessed Comments Unknown Sex and Gender Information Value Date Recorded Sex Assigned at Not on file Legal Sex Female 8:06 PM EDT Gender Identity Not on file Sexual Orientation Not on file documented as of this encounter Miscellaneous Notes * Progress Notes - Emily Livingston - 09/01/2018 3:05 PM EDT called pt, re: committee decision, no answer, left VM documented in this encounter Plan of Treatment Upcoming Encounters Date Type Department Care Team (Late Contact Info) Description 09/09/2024 11:00 AM EDT Social Work [facility] Transplant Center [address] [place] [address] Cassia Verma [facility] [address] [place] [phone] documented as of this encounter Visit Diagnoses Not on filedocumented in this encounter Care Teams Cut Off Saw Operator Relationship Specialty Start Date End Date Marcelo Reese MD [address] [place] [address] PCP - General 06/22/20 documented as of this encounter
--- OUTSIDE RECORDS SUMMARY | 2024-08-10 07:55 | XMS_ITS | Encounter Summary ---
Author Organization [facility] Address [address] [place] [address] Care Team Providers Care Body Shop Manager Name Role Phone Marcelo Reese MD Primary Care Provider + [phone] Encounter Details Date Type Department Care Team (Late Contact Info) Description 11/03/2018 Legacy OTTR Encounter Historical OTTR 800 [place] [address] Emily Livingston, RN HOSPITAL KIDNEY [id number] [address] [place] [phone] Social History Tobacco Use Types Packs/Day Years Used Date Smoking Tobacco: Never Assessed Comments Unknown Sex and Gender Information Value Date Recorded Sex Assigned at Not on file Legal Sex Female 8:06 PM EDT Gender Identity Not on file Sexual Orientation Not on file documented as of this encounter Miscellaneous Notes * Progress Notes - Emily Livingston - 11/03/2018 8:31 AM EDT Current selection criteria and SRTR data (August 2018 release) mailed to patient's home. documented in this encounter Plan of Treatment Upcoming Encounters Date Type Department Care Team (Late Contact Info) Description 09/09/2024 11:00 AM EDT Social Work [facility] Transplant Center [address] [place] [address] Cassia Verma [facility] 800 [place] [address] documented as of this encounter Visit Diagnoses Not on filedocumented in this encounter Care Teams Body Shop Manager Relationship Specialty Start Date End Date Marcelo Resee MD 1210 [facility] [address] [place], [place] [id number] PCP - General 06/22/20 documented as of this encounter
--- OUTSIDE RECORDS SUMMARY | 2024-08-10 07:55 | XMS_ITS | Encounter Summary ---
Author Organization [facility] Address [address] [place] [address] Care Team Providers Care Cement Mixer Name Role Phone Marcelo Reese MD Primary Care Provider + [phone] Encounter Details Date Type Department Care Team (Late st Contact Info) Description 12/17/2018 Legacy OTTR Encounter Historical OTTR 800 [place] [address] Jumana Ku, RN CH-TRANSPLANT ADMINISTRATION Social History Tobacco Use Types Packs/Day Years Used Date Smoking Tobacco: Never Assessed Comments Unknown Sex and Gender Information Value Date Recorded Sex Assigned at Not on file Legal Sex Female 8:06 PM EDT Gender Identity Not on file Sexual Orientation Not on file documented as of this encounter Miscellaneous Notes * Progress Notes - Jumana Ku - 12/17/2018 9:52 AM EST Contacted patient for update on dental clearance. She tells me she continues to see her dentist frequently, however there are no current infections. She did recently have another tooth break and has another appt in [facility] for some more work. I am emailing her the dental form for her to obtain clearance as she says she has not infections. Pt stated she also had her mammogram performed at [facility] 11/01. Calling for record. documented in this encounter Plan of Treatment Upcoming Encounters Date Type Department Care Team (Late st Contact Info) Description 09/09/2024 11:00 AM EDT Social Work [facility] [address] [place] [address] Cassia Verma [facility] [address] [place] [phone] documented as of this encounter Visit Diagnoses Not on filedocumented in this encounter Care Teams Cement Mixer Relationship Specialty Start Date End Date Marcelo Reese MD 12[address] [facility] [address] [place] [address] PCP - General 06/22/20 documented as of this encounter
--- OUTSIDE RECORDS SUMMARY | 2024-08-10 07:55 | XMS_ITS | Encounter Summary ---
Author Organization [facility] Address [address] [place] [phone] Care Team Providers Care Vending Stand Supervisor Name Role Phone Marcelo Reese MD Primary Care Provider + [phone] Encounter Details Date Type Department Care Team (Late st Contact Info) Description 03/04/2019 Legacy OTTR Encounter Historical OTTR 800 [place] [address] Hamida Delaney [place] [id number] Social History Tobacco Use Types Packs/Day Years Used Date Smoking Tobacco: Never Assessed Comments Unknown Sex and Gender Information Value Date Recorded Sex Assigned at Not on file Legal Sex Female 8:06 PM EDT Gender Identity Not on file Sexual Orientation Not on file documented as of this encounter Miscellaneous Notes * Progress Notes - Hamida Delaney - 03/04/2019 1:45 PM EST Ms Hatch was seen in clinic yesterday by Dr. Vicente - Patient feels that she is not in need of PDC yet and wants to see Dr. Michelle again prior to booking surgery. Her next appointment with Dr. Michelle is scheduled for 03/09. Nurse follow up set to find notes and get in contact with Dr. Michelle. - Patient was consented during appointment and attended POAC appointment afterward. - Note to Nusrat for update documented in this encounter Plan of Treatment Upcoming Encounters Date Type Department Care Team (Late st Contact Info) Description 09/09/2024 11:00 AM EDT Social Work [facility] Transplant Center [address] [place] [address] Cassia Verma [facility] 800 [place] [address] documented as of this encounter Visit Diagnoses Not on filedocumented in this encounter Care Teams Vending Stand Supervisor Relationship Specialty Start Date End Date Marcelo Reese MD 1210 [facility] [address] [place] [address] PCP - General 06/22/20 documented as of this encounter
--- OUTSIDE RECORDS SUMMARY | 2024-08-10 07:55 | XMS_ITS | Encounter Summary ---
Author Organization [facility] Address [address] [place] [address] Care Team Providers Care Wireless Sales Manager Name Role Phone Marcelo Reese MD Primary Care Provider + [phone] Encounter Details Date Type Department Care Team (Late Contact Info) Description 04/02/2018 Legacy OTTR Encounter Historical OTTR 800 [place] [address] Tiffani Gambino [facility] 800 [place] [address] Social History Tobacco Use Types Packs/Day Years Used Date Smoking Tobacco: Never Assessed Comments Unknown Sex and Gender Information Value Date Recorded Sex Assigned at Not on file Legal Sex Female 8:06 PM EDT Gender Identity Not on file Sexual Orientation Not on file documented as of this encounter Miscellaneous Notes * Progress Notes - Tiffani Gambino - 04/02/2018 12:46 PM EST Pt has new coverage through [facility]. Policy # [id number]. Pt is approved for active listing per counseling case manager Krupa Hubbard at [phone] Auth # [id number], no expiration documented in this encounter Plan of Treatment Upcoming Encounters Date Type Department Care Team (Late Contact Info) Description 09/09/2024 11:00 AM EDT Social Work [facility] Transplant Center [address] [facility] [address] [place] [address] Cassia Verma [facility] 800 [place] [address] documented as of this encounter Visit Diagnoses Not on filedocumented in this encounter Care Teams Wireless Sales Manager Relationship Specialty Start Date End Date Marcelo Reese MD [address] [place] [address] PCP - General 06/22/20 documented as of this encounter
--- OUTSIDE RECORDS SUMMARY | 2024-08-10 07:55 | XMS_ITS ---
Author Organization [facility] Address [address] [place] [address] Care Team Providers Care As400 Programmer Analyst Name Role Phone Marcelo Reese MD Primary Care Provider [phone] Transplant Episode Kidney Candidate [facility] ([place], [place]) - [facility] Evaluation began on 06/14/2024 Marked as Active on 06/14/2024 Kidney CoordinatorAngie Major RN Fax: N/A Email: N/A Scores Score Value Updated Exceptions/Reas ons CPRA Not available EPTS (Calc) 30 08/10/2024 [place] Organ Diagnosis Organ Primary Contributory Kidney Other, Specify - UNKNOWN Care Team Name Role Phone Fax Email Angie Major RN Kidney Coordinator [phone] N/A N/A Cassia Verma Manager Radio [phone] N/A N/A Brandon Michelle MD Referring Physician [phone] N/A Bayron Brown MD Manager Radio [phone] N/A Events Pre-Transplant Referred: 05/18/2024 Evaluation began: 06/14/2024 Committee: 06/14/2024 Appointments (07/11/2024 - 09/10/2024) When With Visit Type Description 09/09/2024 Transplant - William Verma rk - New Patient Dialysis History Dialysis History Start End Type Comments Center 05/21/2020 In-center Hemodialysis t,,sat [facility] Dialysis Center Information Center Phone Fax Address [facility] [phone] [address] [id number]
--- OUTSIDE RECORDS SUMMARY | 2024-08-10 07:55 | XMS_ITS | Encounter Summary ---
Author Organization [facility] Address [address] [place] [id number] Care Team Providers Care Director Process Improvement Name Role Phone Marcelo Reese MD Primary Care Provider + [phone] Encounter Details Date Type Department Care Team (Late st Contact Info) Description 07/30/2018 [facility] Encounter Historical OTTR [address] [place] [address] Emily Livingston, RN [facility]OSPITAL K[facility]NEY [id number] [address] [place] [address] Social History Tobacco Use Types Packs/Day Years Used Date Smoking Tobacco: Never Assessed Comments Unknown Sex and Gender Information Value Date Recorded Sex Assigned at Not on file Legal Sex Female 8:06 PM EDT Gender Identity Not on file Sexual Orientation Not on file documented as of this encounter Miscellaneous Notes * Progress Notes - Emily Livingston - 07/30/2018 11:21 AM EDT pt called stating that she was supposed to have an appt today to see [facility] but they called her yesterday to cancel due to the MD's mother dying and she is still home with her dad. pt said the [facility] office told her to call next Thursday to try and get on the August schedule. documented in this encounter Plan of Treatment Upcoming Encounters Date Type Department Care Team (Late st Contact Info) Description 09/09/2024 11:00 AM EDT Social Work [facility] [address] [place] [address] Cassia Verma [facility] [address] [place] [id number] documented as of this encounter Visit Diagnoses Not on filedocumented in this encounter Care Teams Director Process Improvement Relationship Specialty Start Date End Date Marcelo Reese MD [address] [facility] [address] [place] [address] PCP - General 06/22/20 documented as of this encounter
--- OUTSIDE RECORDS SUMMARY | 2024-08-10 07:55 | XMS_ITS | Encounter Summary ---
Author Organization [facility] Address [address] [place] [address] Care Team Providers Care Wool Handler Name Role Phone Marcelo Reese MD Primary Care Provider + [phone] Encounter Details Date Type Department Care Team (Late st Contact Info) Description 09/24/2018 [facility] OTTR Encounter Historical OTTR [address] [place] [address] Emily Livingston, RN HOSPITAL KIDNEY [id number] [address] [place] [id number] Social History Tobacco Use Types Packs/Day Years Used Date Smoking Tobacco: Never Assessed Comments Unknown Sex and Gender Information Value Date Recorded Sex Assigned at Not on file Legal Sex Female 8:06 PM EDT Gender Identity Not on file Sexual Orientation Not on file documented as of this encounter Miscellaneous Notes * Progress Notes - Emily Livingston - 09/24/2018 9:59 AM EDT called pt to see if she went to dentist on 09/08, no answer, left VM documented in this encounter Plan of Treatment Upcoming Encounters Date Type Department Care Team (Late Contact Info) Description 09/09/2024 11:00 AM EDT Social Work [facility] [address] [place] [address] Cassia Verma [facility] [address] [place] [address] documented as of this encounter Visit Diagnoses Not on filedocumented in this encounter Care Teams Wool Handler Relationship Specialty Start Date End Date Marcelo Reese MD [address] [facility] [address] [place] [id number] PCP - General 06/22/20 documented as of this encounter
--- OUTSIDE RECORDS SUMMARY | 2024-08-10 07:55 | XMS_ITS | Encounter Summary ---
Author Organization [facility] Address [address] [place] [address] Care Team Providers Care Assistant Engineer Name Role Phone Marcelo Reese MD Primary Care Provider + [phone] Encounter Details Date Type Department Care Team (Late st Contact Info) Description 08/30/2018 Legacy OTTR Encounter Historical OTTR [address] [place] [address] January Walker [place] [id number] Social History Tobacco Use Types Packs/Day Years Used Date Smoking Tobacco: Never Assessed Comments Unknown Sex and Gender Information Value Date Recorded Sex Assigned at Not on file Legal Sex Female 8:06 PM EDT Gender Identity Not on file Sexual Orientation Not on file documented as of this encounter Miscellaneous Notes * Progress Notes - January Walker - 08/30/2018 10:31 AM EDT SW annual completed 08/30/18 and full documentation is in SCM. Pt is currently listed inactive pending clearance from psychiatry for her long time eating disorder. She has not been able to see psych since January 2018 due to scheduling issues. She reports she has an appointment with the latertoday, and hopes to obtain clearance as she has not purged since October 2017. SW will await documentation from psychiatry. documented in this encounter Plan of Treatment Upcoming Encounters Date Type Department Care Team (Late st Contact Info) Description 09/09/2024 11:00 AM EDT Social Work [facility] [address] [place] [address] Cassia Verma [facility] [address] [place] [phone] documented as of this encounter Visit Diagnoses Not on filedocumented in this encounter Care Teams Assistant Engineer Relationship Specialty Start Date End Date Marcelo Reese MD [address] [facility] [address] [place] [address] PCP - General 06/22/20 documented as of this encounter
--- OUTSIDE RECORDS SUMMARY | 2024-08-10 07:55 | XMS_ITS | Encounter Summary ---
Author Organization [facility] Address [address] [place] [address] Care Team Providers Care Outsole Molder Name Role Phone Marcelo Reese MD Primary Care Provider + [phone] Encounter Details Date Type Department Care Team (Late st Contact Info) Description 04/23/2018 Legacy OTTR Encounter Historical OTTR [address] [place] [address] Jumana Ku, RN [facility] Social History Tobacco Use Types Packs/Day Years Used Date Smoking Tobacco: Never Assessed Comments Unknown Sex and Gender Information Value Date Recorded Sex Assigned at Not on file Legal Sex Female 8:06 PM EDT Gender Identity Not on file Sexual Orientation Not on file documented as of this encounter Miscellaneous Notes * Progress Notes - Jumana Ku - 04/23/2018 1:54 PM EDT Left message for patient and request return call for an update. documented in this encounter Plan of Treatment Upcoming Encounters Date Type Department Care Team (Late st Contact Info) Description 09/09/2024 11:00 AM EDT Social Work [facility] Transplant Center [address] [facility] [address] [place] [address] Cassia Verma [facility] [address] [place] [address] documented as of this encounter Visit Diagnoses Not on filedocumented in this encounter Care Teams Outsole Molder Relationship Specialty Start Date End Date Marcelo Reese MD [address] [place] [facility] PCP - General 06/22/20 documented as of this encounter
--- OUTSIDE RECORDS SUMMARY | 2024-08-10 07:55 | XMS_ITS | Clinical Summary ---
Author Organization [facility] Address [address] [place] [address] Care Team Providers Care Bending Press Operator Name Role Phone Marcelo Reese MD Primary Care Provider + [phone] Source Comments This information has been disclosed to you from confidential records protectedfrom disclosure by state law. You shall make no further disclosure of thisinformation without the specific, written, and informed release of theindividual to whom it pertains, or as otherwise permitted by law. A generalauthorization for the release of medical or other information is not sufficientfor the purposes of therelease of HIV test results or diagnoses. [id number] Allergies Active Allergy Reactions Criticality Noted Date Comments Penicillins Rash Low 11/27/2022 Medications calcitRIOL (ROCALTROL) 0.25 MCG capsule Take 1 capsule (0.25 mcg total) by mouth daily. Active FLUoxetine (PROZAC) 10 MG tablet Take 3 tablets (30 mg total) by mouth daily. Active ondansetron (ZOFRAN) 4 MG tablet Take 1 tablet (4 mg total) by mouth every 8 hours as needed for Nausea. Active olmesartan (BENICAR) 5 MG tablet Take 1 tablet (5 mg total) by mouth daily. Active potassium chloride (KCL) 20 mEq/15 mL solution Take 15 mLs (20 mEq total) by mouth daily. Active carvediloL (COREG) 6.25 MG tablet TAKE 1 TABLET BY MOUTH TWICE DAILY WITH MEALS 180 tablet 1 06/18/2023 Active levothyroxine (SYNTHROID) 50 MCG tablet Take 1 tablet (50 mcg total) by mouth every morning before breakfast. Active Active Problems Problem Noted Date Diagnosed Date Pre-transplant evaluation for kidney transplant 08/22/2022 ESRD (end stage renal disease) 08/22/2022 HTN (hypertension) 08/22/2022 Anorexia 08/22/2022 Bulimia nervosa 08/22/2022 Anemia 08/22/2022 SCC (squamous cell carcinoma) 08/22/2022 Secondary hyperparathyroidism 08/22/2022 Encounters Date Type Department Care Team Description 07/07/2024 Orders Only [facility] Pan[facility] Transplant at [facility] [address] [place] [id number] Jose Patterson MD 07/06/2024 Chart Note [facility] Kidney Transplant at [address] [phone] Bia Vieira RN WL review- pt inactive on WL due to elevate PTH levels. Reviewed labs- 07/06/2024 Chart Note [facility] Kidney Transplant at [address] [address] Darya Chatman MA 07/06/2024 Chart Note [facility] Kidney Transplant at [address] [address] Darya Chatman MA 07/06/2024 Telephone [facility] Kidney Transplant at [address] [address] Darya Chatman MA 06/22/2024 Telephone [facility] Kidney Transplant at [address] [address] Darya Chatman MA from Last 3 Months Family History Medical History Relation Comments Heart disease Father Relation Status Comments Father Social History Tobacco Use Types Packs/Day Years Used Date Smoking Tobacco: Former Cigarettes - 2009 Smokeless Tobacco: Never Tobacco Cessation:Counseling Given: Not Answered Alcohol Use Standard Drinks/Week Comments Never 0 [...] Sign Reading Time Taken Comments Blood Pressure 112/55 06/17/2023 1:29 PM EDT Pulse 62 06/17/2023 1:29 PM EDT Temperature 36.5 C (97.7 F) 06/17/2023 1:29 PM EDT Respiratory Rate 16 06/17/2023 1:29 PM EDT Oxygen Saturation 99% 06/17/2023 1:29 PM EDT Inhaled Oxygen Concentration 99% 06/17/2023 1 :29 PM EDT Weight 44.9 kg (98 lb 14.4 oz) 06/17/2023 1:29 P M EDT Height 157.5 cm (5' 2 ) 06/17/2023 1:29 PM EDT Body Mass Index 18.09 06/17/2023 1:29 PM EDT Plan of Treatment Health Maintenance Due Date Last Done Comments ASCVD Assessment 1971 Abnormal Colonoscopy Follow Up 1971 Immunization: Zoster (1 of 2) 10/17/1990 Cervical Cancer Screening/Pa p Smear (MyChart) 10/17/2001 Mammogram (MyChart) 2011 Cologuard (FIT-DNA) 10/17/2016 Colonoscopy 10/17/2016 Colorectal Cancer Screening (MyChart) 10/17/2016 Stool Testing (gFOBT) 10/17/2016 Osteoporosis Screening (DXA Scan) 10/17/2021 Immunization: Pneumococcal ( 3 of 3 - PCV20 or PCV21) 10/28/2022 10/28/2017, 08/25/2017 Immunization: COVID-19 ( season) 2023 01/11/2021, 04/18/2020 Depression Screening 06/18/2024 06/19/2023, 12/19/19 Immunization: Hepatitis B (5 of 5 - Risk Dialysis 4-dose series) 08/28/2024 08/29/2023, 10/13/2020, 05/19/2020, Additional history exists Immunization: Influenza (MyC montiel) (Season Ended) 2024 12/27/2021, 11/05/2019, 12/15/2018, Additional history exists Renal Function/GFR 02/23/2025 02/24/2024, 0 06/17/2023, 03/09/2023 Immunization: DTaP/Tdap/Td ( 2 - Td or Tdap) 07/03/2025 07/04/2015 Hepatitis C Screening (MyChart) Completed HIV Screening Completed 02/24/2024, 06/17/2023 Procedures Procedure Name Priority Date/Time Associated Diagnosis Comments HOX - HLA ANTIBODY REPORT Routine 07/07/2024 1:43 PM EDT PTH, INTACT Routine 06/28/2024 PTH, INTACT Routine 06/01/2024 HIV 1+2 ANTIBODY/ANTIGEN WITH REFLEX Routine 02/24/2024 1:08 PM EST Patient on waiting list for kidney transplant ESRD (end stage renal disease) [place] Routine history and physical examination of adult BASIC METABOLIC PANEL Routine 02/24/2024 12:10 PM EST Patient on waiting list for kidney transplant ESRD (end stage renal disease) on dialysis [place] Routine history and physical examination of adult HEPATITIS C ANTIBODY Routine 06/17/2023 4:00 PM EDT Pre-transplant evaluation for kidney transplant Hypertension secondary to other renal disorders ESRD (end stage renal disease) [place] Routine history and physical examination of adult from Last 3 Months or Most Recently Relevant to Health Maintenance Results * Hox - HLA Antibody Report (07/07/2024 1:43 PM EDT) 07/07/2024 1:43 PM EDT Jose Patterson MD LAB BLOOD ORDERABLES Final Resul t [facility] [address] [facility] [place] [address] * PTH (06/28/2024) Only the most recent of2 resultswithin the time period is included. PTH 1,139 pg/mL Serum Historical Provider LAB BLOOD ORDERABLES Tiana l Result * HIV-1 and HIV-2 antibodies (02/24/2024 1:08 PM EST) Pathologist [facility] HIV 1+2 AB/AGN Nonreactive Nonreactive 02/24/2024 1:55 PM EST [facility] Serum 02/24/2024 1:08 PM EST 02/24/2024 1:08 PM EST Narrative [facility] - 02/24/2024 1:55 PM EST HIV-1 p24 Antigen and HIV-1/HIV-2 Antibody not detected. Chikis Reynoso CNP LAB BLOOD ORDERABLES Final Result Performing Organization Address City/[facility]/ZIP Co de Phone Number [facility] [address] [place] [address] * (ABNORMAL) Basic metabolic panel (02/24/2024 12:10 PM EST) Sodium 139 133 - 146 mmol/L 02/24/2024 1:18 PM EST [facility] Potassium 4.1 3.5 - 5.3 mmol/L 02/24/2024 1:18 PM EST [facility] Chloride 96(L) 98 - 110 mmol/L 02/24/2024 1:18 PM EST [facility] CO2 32 21 - 33 mmol/L 02/24/2024 1:18 PM EST [facility] Anion Gap 11 3 - 16 mmol/L 02/24/2024 1:18 PM EST [facility] BUN 18 7 - 25 mg/dL 02/24/2024 1:18 PM EST [facility] Creatinine 7.97(H) 0.60 - 1.30 mg/dL 02/24/2024 1:18 PM EST [facility] Glucose 93 70 - 100 mg/dL 02/24/2024 1:18 PM EST [facility] Calcium 8.3(L) 8.6 - 10.3 mg/dL 02/24/2024 1:18 PM EST [facility] Osmolality, Calculated 290 278 - 305 mOsm/kg 02/24/2024 1:18 PM EST [facility] EGFR 6 02/24/2024 1:18 PM EST [facility] Comment:As of 2021, the estimated GFR is calculated using the 2020 Chronic Kidney Disease Epidemiology Collaboration (CKD-EPI) equation. In line with the NKF-ASN Task Force Recommendations, this equation does not include a coefficient for race. A single eGFR value is calculated for each patient. The reference interval is >60 mL/min/1.73m2. eGFR values greater than 90 will be reported as >90mL/min/1.73m2. Reference: Leonard C, Krystle M, Emerson [place], Nuvia [place], Romaine [place], Toña [place], et al. A Unifying Approach for GFR Estimation: Recommendations of the NKF-ASN Task Force on Reassessing the inclusion of Race in Diagnosing Kidney Disease. Am J Kidney Dis. 2020. Plasma 02/24/2024 12:1 0 PM EST 02/24/2024 12:54 PM EST us Chikis Reynoso [facility] BLOOD ORDERABLES Final Result [facility] [address] [place], [place] [address] * Hepatitis C antibody (06/17/2023 4:00 PM EDT) HCV Ab Nonreactive Nonreactive 06/17/2023 5:53 PM EDT [facility] Comment:Health Department no tified in accordance with reportable infectious disease guidelines. Serum 06/17/2023 4:00 PM EDT 06/17/2023 4:49 PM EDT Narrative [facility] - 06/17/2023 5:53 PM EDT Antibodies to HCV not detected; does not exclude the possibility of exposure to HCV. us Jose Patterson MD LAB BLOOD ORDERABLES Final Resul t [facility] [address] [place] [address], [facility] from Last 3 Months or Most Recently Relevant to Health Maintenance Insurance [email or web address] MEDICARE A AND B [email or web address] MEDICARE A AND B Advance Directives For more information, please contact: [phone] * Full Code (Latest Code Status on File) Date Activated Date Inactivated Comments 03/09/2023 9:36 AM 03/09/2023 7:00 PM Care Teams Bending Press Operator Relationship Specialty Start Date End Date Marcelo Reese MD [address] [place] [address] PCP - General Family Medicine 03/09/23
== END 2024-08-10 23:59 | disposition home or self-care (01) ==
LOC: RAD 07:49
PROVIDERS: PCP Physician Assistant; Visit Provider Physician Assistant
DX: Z12.31 Encounter for screening mammogram for malignant neoplasm of breast (principal); R92.333 Mammographic heterogeneous density, bilateral breasts
CPT/HCPCS: 77063; 77067

== ENCOUNTER 2024-11-23 13:24 | Day surgery (SDC) | payer MEDICARE, BC, SELFPAY ==
[2024-11-16 10:48] VITALS: BMI 19.2
--- NOTE | 2024-11-17 07:16 | EXP.HP ---
History of Present Illness *Admission Date: 11/23/24 *History of present illness: Mrs. Hatch is a 54-year-old female who is here for screening colonoscopy. The patient did have a colonoscopy at the [facility] on 09/03/2023. She did have a GI bleed following her colonoscopy and was hospitalized at [facility]. The patient did have a colonoscopy by Dr. Yariel Carmichael in October 2021 and had 3 polyps (tubular adenomas x 3) removed. The examination is deemed medically necessary for colonoscopy. The patient has been seen, interviewed and examined prior to the procedure by both myself and the anesthesia provider. [facility] Disclaimer: The information contained in this section may have been updated after the patient was seen, as this information can be updated by other users. Medical History (Updated 11/23/24 @ 14:29 by Sarkis Carrington II, MD) Hemodialysis patient Anorexia Peritoneal dialysis catheter in place History of peritoneal dialysis History of renal failure Surgical History History of colonoscopy History of cholecystectomy Family History Other Colon cancer Family history of cancer Social History Smoking Status: Never smoker alcohol intake: never substance use type: denies use current occupational status: employed Travel in the last 8 weeks?: None housing: house caffeine: Yes Have you lived/traveled outside US in past 30 days?: No Contact w/someone who lives/traveled outside US past 30 days?: No Exposure to someone with infectious disease in past 14 days?: No Do you have a fever (greater than 100.4 F or 38 C)?: No Have you tested positive for COVID-19?: No Exposed to someone with COVID-19 in past 14 days?: No Do you have a sore throat?: No Do you have a cough?: No Do you have any weakness?: No Are you experiencing any nausea/vomitting?: No Do you have any diarrhea?: No Are you experiencing any unusual bleeding?: No Do you have any muscle aches/pain?: No Do you have any abdominal pain?: No Are you experiencing loss of taste or smell?: No Other Medical History Have you received the Flu Vaccine for this season: Yes Have you received the Pneumonia Vaccine: Yes Review of Systems Review of Systems Review of systems (narrative): Negative *Cardiovascular Comments: Negative *Gastrointestinal Comments: Negative *Genitourinary Comments: Negative *Musculoskeletal Comments: Negative *Neurologic Comments: Negative Meds Home Medications and Allergies Home Medications ?Medication ?Instructions ?Recorded ?Confirmed ?Type potassium chloride 20 mEq 20 meq PO TID Supplement 07/28/18 11/16/24 History tablet,extended release(part/cryst) calcitriol 0.5 mcg capsule 0.5 mcg PO DAILY Supplement 11/01/21 11/16/24 History carvedilol 6.25 mg tablet 6.25 mg PO BID 11/16/24 11/16/24 History tenapanor 30 mg tablet (Xphozah) 30 mg PO BID 11/16/24 11/16/24 History New Prescriptions to Start Prescriptions: Allergies Allergy/AdvReac Type Severity Reaction Status Date / Time Penicillins Allergy Intermediate Rash Verified 11/23/24 13:40 Exam Data for Last 24 hours I & O for Last 24 hours: Intake & Output 11/14/24 11/15/24 11/16/24 11/17/24 23:59 23:59 23:59 23:59 Weight 105 lb *Routine HEENT Exam Head: Present normocephalic Eye: Present EOMI and PERRL ENT: Present mucous membranes moist *Routine Neck Exam Neck: Present supple *Routine Respiratory Exam Respiratory: Present CTA bilaterally *Routine Cardiovascular Exam Cardiovascular: Present RRR *Routine Abdominal Exam Abdominal: Present soft and normoactive bowel sounds; Absent tenderness *Routine Rectal Exam Rectal:: deferred *Routine Genitalia Exam Genitalia:: deferred *Routine Extremities Exam Extremities: Absent cyanosis, clubbing or edema *Routine Skin Exam Skin: Present warm; Absent rash *Routine Neurological Exam Neurological: Present alert and oriented X3 Assessment and Plan *Assessment and plan (1) Personal history of adenomatous and serrated colon polyps: Status: Acute Category: Medical Code(s): Z86.0101 - Personal history of adenomatous and serrated colon polyps (2) Screening for colon cancer: Status: Acute Category: Medical Code(s): Z12.11 - Encounter for screening for malignant neoplasm of colon Plan A/P: 1. Personal history of adenomatous colon polyps is the preprocedural diagnosis. The patient will be anesthetized/sedated using MAC sedation. The patient has been seen and examined. Cardiac and lung assessment prior to the examination is stable. Proceed with planned colonoscopy.
[2024-11-23] VITALS (7 sets, daily range): BP systolic 92–154; BP diastolic 51–82; PULSE 60–89; RESP 16–20; TEMP 36.5–36.9; O2SAT 92–98
--- NOTE | 2024-11-23 07:10 | HMH.PROCNOTE ---
[facility] Procedure Note Date: 11/23/24 Time: 14:57 Procedure Note:: Colonoscopy Procedure Report: Colonoscopy with cold snare polypectomy and Endo Clip placement Endoscopist: Sarkis Carrington II, MD Referring physician: Macrelo Reese MD Date of Procedure: November 23, 2024 Equipment: Olympus [id number] adult colonoscope Sedation: MAC sedation Indication: Mrs. Hatch is a 54-year-old female who is here for screening colonoscopy. The patient did have a colonoscopy with Dr. Yariel Carmichael in October 2021 and had 3 polyps (tubular adenomas x 3) removed. The patient also had a larger more advanced adenomatous polyp and was referred to the [facility]. They could not remove this based on its size. The patient was then referred for colonoscopy at the [facility] on 09/03/2023. The patient did have a EMR removal of the polyp. She rectal anal hemorrhoids following her colonoscopy and was readmitted and was hospitalized at [facility]. This was characterized as a perforation but this was post polypectomy bleeding and subsequent colonoscopy was performed. The patient now is on the kidney transplant list and needs clearance/surveillance prior to transplantation. She reports no abdominal pain, weight loss, change in her bowel habits or rectal bleeding. She reports no family history of colon cancer. The examination is deemed medically necessary for colonoscopy. Procedure: Prior to the procedure, a history and physical exam was performed, and patient's medications and allergies were reviewed. The risks, benefits and alternatives of the sedation and procedure were discussed with the patient. All questions were answered and informed consent was obtained. The patient was brought to the procedure room. Patient identification and proposed procedure were verified by the physician and the nurse. The patient was placed in a left lateral decubitus position and the scope was passed under direct vision. Throughout the procedure, the patient's blood pressure, pulse, and oxygen saturations were monitored continuously. The colonoscopy was accomplished without difficulty. The patient tolerated the procedure well. Findings: On digital rectal examination there was normal rectal tone. There were no external hemorrhoids. The colonoscope was introduced through the anal canal to the rectum and advanced to the cecum. The ileocecal valve and appendiceal orifice were identified. The scope was advanced a short distance into the ileum which appeared grossly normal. The scope was then withdrawn into the colon. The cecum was normal. There was an 8 mm polyp in the proximal ascending colon with some adjacent fibrosis (prior polypectomy site). This was removed via cold snare polypectomy. There was some minor heme so an Endo Clip was placed over this polypectomy site. The remainder of the ascending and transverse colon were normal. In the descending colon adjacent to the splenic flexure was a large area of submucosal tattoo. There was an Endo Clip identified where a prior polyp had been removed. There appeared to be some adenomatous tissue but it was very difficult to get the clip off and this minor amount of adenomatous tissue was cut around the clip but the clip was not removed and the polyp was not fully retrieved. There were 3 additional polyps in the sigmoid colon and these were also adjacent to a polypectomy site with fibrosis and Endo Clip. This Endo Clip was removed and all of the apparent minor flat adenomatous tissue (3 spots) was removed via cold snare polypectomy. There were scattered diverticuli throughout the descending and sigmoid colon (LEFT colon). The rectum itself was normal. Upon retroflexion within the rectum there were grade 1-2 internal hemorrhoids. The preparation was excellent throughout with [place] Preparation Score of 9. The cecal time was 12 minutes. Impression: 1. Ascending colon polyp (8 mm) 2. Minor residual prior advanced descending polyp (with adjacent Yun ink tattoo and Endo Clip) 3. Minor residual of prior advanced sigmoid polyp (with adjacent Yun ink tattoo and Endo Clip)?status post Endo Clip removal and snare removal of residual Plan: I will follow-up the polyp histology. I would recommend repeat surveillance colonoscopy again in 3 years.
[2024-11-23] MEDS: LACTATED RINGERS 1000ML 1,000 ML 50 ML IV (13:48)
--- NOTE | 2024-11-23 14:05 | EXP.ANES.CKL ---
[facility] Disclaimer: The information contained in this section may have been updated after the patient was seen, as this information can be updated by other users. Medical History Hemodialysis patient Anorexia Peritoneal dialysis catheter in place History of peritoneal dialysis History of renal failure Surgical History History of colonoscopy History of cholecystectomy Family History Other Colon cancer Family history of cancer Social History Smoking Status: Never smoker alcohol intake: never substance use type: denies use current occupational status: employed Travel in the last 8 weeks?: None housing: house caffeine: Yes Have you lived/traveled outside US in past 30 days?: No Contact w/someone who lives/traveled outside US past 30 days?: No Exposure to someone with infectious disease in past 14 days?: No Do you have a fever (greater than 100.4 F or 38 C)?: No Have you tested positive for COVID-19?: No Exposed to someone with COVID-19 in past 14 days?: No Do you have a sore throat?: No Do you have a cough?: No Do you have any weakness?: No Are you experiencing any nausea/vomitting?: No Do you have any diarrhea?: No Are you experiencing any unusual bleeding?: No Do you have any muscle aches/pain?: No Do you have any abdominal pain?: No Are you experiencing loss of taste or smell?: No [facility] Anesthesia Checklist Patient Identification Patient Identification: Verbal (Name & ) Structural Data Admitted From: Home Planned Operative Procedure/s: colonoscopy Consent for Planned Operative Procedure(s) Verified: Yes NPO Status Verified Time NPO: 00:00 Additional verifications Anesthesia Reactions: No Hx Blood Transfusions: No Blood Transfusion Reaction: No Airway Assessment Mallampati Score:: Class II C-Spine Mobility Assessed: Yes TMJ Mobility Assessed: Yes Dentition: Dentures-good fit Neurological Assessment Level of Consciousness: Awake, Alert and Appropriate Anesthesia Plan Anesthesia Risk discussed: Yes Anesthesia Plan: Verified ASA Class: III Anesthesia Type: MAC
--- NOTE | 2024-11-23 15:52 | XR_ITS ---
FINAL REPORT TECHNIQUE: Single view chest CLINICAL HISTORY: s/p scope COMPARISON: No prior exams submitted for comparison. FINDINGS: A single view of the chest was obtained. The heart and mediastinum are within normal limits. The lungs are clear. There is no pneumothorax. IMPRESSION: No acute cardiopulmonary process. Reviewed, Interpreted and Dictated by Florecita Giron MD Transcribed by Kimberly Brody Authenticated and . [facility]
--- NOTE | 2024-11-23 16:41 | SUR.PHASEII ---
1638: Decision to admit per Sumaya Vázquez. typing pool supervisor contacted for a bed at this time.
--- NOTE | 2024-11-23 17:17 | SUR.PHASEII ---
1715: Decision made per care team of Eduardo Koroma and this RN to transfer pt for ER workup due to pt being a current dialysis pt. Transferred to ER per this nurse and Grisel Krueger RN. Pt is stable. VS: 150/74, 61HR, 19RR, 94% 3LNC. Report was given to Linda Yung RN.
== END 2024-11-23 17:15 | disposition home or self-care (01) ==
PROVIDERS: PCP Family Medicine; Visit Provider Internal Medicine Gastroenterology
PROC: 0DJD8ZZ Inspection of Lower Intestinal Tract, Via Natural or Artificial Opening Endoscopic (ICD-10-PCS; CPT 45378; principal; 2024-11-23 15:00)
DX: Z12.11 Encounter for screening for malignant neoplasm of colon (principal); D12.2 Benign neoplasm of ascending colon; D12.5 Benign neoplasm of sigmoid colon; K63.5 Polyp of colon; K57.30 Diverticulosis of large intestine without perforation or abscess without bleeding; K64.1 Second degree hemorrhoids; Z86.0101 Personal history of adenomatous and serrated colon polyps; N18.6 End stage renal disease; Z99.2 Dependence on renal dialysis; Z76.82 Awaiting organ transplant status; Z79.899 Other long term (current) drug therapy; Z88.0 Allergy status to penicillin
CPT/HCPCS: 45385; 71045; J2003; J2704; J7120

== ENCOUNTER 2024-11-23 17:07 | Emergency (ER) | payer MEDICARE, BC, SELFPAY ==
--- OUTSIDE RECORDS SUMMARY | 2023-09-18 05:30 | XMS_ITS ---
Author Organization [facility] Address [address] [place] [id number] Care Team Providers Care Traveling Crane Operator Name Role Phone Mary Ann Marcelo Primary Care Provider Michelle Garcia Unavailable [phone] Allergies Allergen (clinical drug ingredient) Drug/Non Drug [...] gfr 4, prot 5.6 Performing Lab: Notes/Report: CLIA: [id number] Simon Guerrero MD, [employer] Developer [address] [place] [address] [place] [address] Test performed by [email or web address] Sodium 140 135-145 mmol/L Potassium 4.5 3.5-5.3 [...] Interpretation:Normal Performing Lab: Notes/Report: Test performed by [email or web address] [address] [place] [address] [place] [address] Simon Guerrero MD, Sap [employer] Developer CLIA: [id number] Luteinizing Hormone 8.80 LH Reference Range Men: [...] Interpretation:0.79 Performing Lab: Notes/Report: Test performed by [facility] [address] [place] [address] [place] [address] Simon Guerrero MD, Sap [employer] Developer CLIA: [id number] Thyroxine Free (free T4) 0.79 0.86-1.76 ng/dL P-Lipid Panel Reviewed date:09/22/2023 10:49:57 PM Interpretation:Normal Performing Lab: Notes/Report: Test performed by [facility], [address] [place] [address] Simon Guerrero MD, Sap [employer] Developer CLIA: [id number] Cholesterol 136 <200 mg/dL Triglycerides 101 <150 [...] Interpretation:10.4 Performing Lab: Notes/Report: Test performed by [facility], [employer] [address] [place] [address] , [address], [place] [address] Simon Guerrero MD, Sap [employer] Developer CLIA: [id number] TSH reflex to FT4 10.40 0.43-5.25 mU/L [...] [address] [place] [id number] 09/18/2023 Michelle Garcia Renal insufficiency N28.9 ; [...] week along with an INR. Patient called [place] and spoke with the physician's office who [...] week along with an INR. Patient called [place] and spoke with the physician's office who [...] Reason: Progress Notes * YOGI HERMELINDADOB: 2 (54 yo F)Acc No.[id number]:09/18/2023 Progress Notes Patient: HERMELINDA CAM Provider: BRYANT Castro :1970 A ge:52 Y S ex:Female Date:09/18/2023 Address: [id number] Pcp:Marcelo Reese Subjective: * Chief Complaints: * 1 . Checkup. * HPI: H PI: Patient is here today for a scheduled check up. Pt is fasting today. G astroenterology: Pt had a colonoscopy on 09/02 and on 09/04 she went to [facility] ER due to a high fever. Pt was transferred to [facility] where she had the colonoscopy [...] Hospitalization/Major Diagno stic Procedure: H ER to [facility] - Small Tear following Colonoscopy [...] week along with an INR. Patient called [place] and spoke with the physician's office who [...] 0.79 L 0.86-1.76 - ng/d L * [facility], IT support 09/19/2023 05:05:11 : This order was created by the Interface. Rhonda Bhagat 09/21/2023 8:40:51 AM >See phone encounter Michelle Garcia Malcolm 09/22/2023 10:49:17 PM > see TE * Procedure Codes: 9 [address] [place], [address] CAPILLARY BLOOD DRAW, [address] GLYCATED HEMOGLOBIN TEST, Modifiers: QW , 16786 CBC WITH AUTO DIFF, 67822 VENIPUNCT, ROUTINE* * Follow Up: v ia phone to report test results * Images: Billing Information: * Visit Code: 51811 Office Visit, Est Pt., Level 4. * Procedure Codes: [address] [place]. [address] CAPILLARY BLOOD DRAW. 84497 GLYCATED HEMOGLOBIN TEST. Modifiers: QW 39898 CBC WITH AUTO DIFF. 22003 VENIPUNCT, ROUTINE*. * Electronic signature of BRYANT Thompson on 11/23/2024 at 05:30 PM EDT Sign off status: Pending * Provider: BRYANT Castro Date: 0 09/18/2023 Generated for Bar ng/Fathadg/eTransmitting on: 1 05:30 PM EDT History and Physical Notes * HPI (History of Present Illness) Category Sub-Category Detail Notes Category Not es [place] Pt has an irregular menses and would like to know how she would know if she was beginning menopause Gastroenterology Pt had a colonoscopy on 09/02 and on 09/04 she went to [facility] ER due to a high fever. Pt was transferred to [facility] where she had the colonoscopy [...]
--- OUTSIDE RECORDS SUMMARY | 2023-09-26 05:40 | XMS_ITS ---
[facility] [address] [place] [id number] Care Team Providers Care Patent Chemist Name Role Phone PlainsYessiMarcelo Primary Care Provider Michelle Garcia Unavailable [phone] Results Component Value Reference Range Notes CBC [...] Encounters Encounter Location Date Provider Diagnosis [facility] [address] [facility] [address] [place] [id number] 09/26/2023 Michelle Garcia Blood in stool K92.1 Assessments Encounter Date Diagnosis (ICD Code) Assessment Notes Treatment Notes Treatment Clinical Notes Section Notes 09/26/2023 Blood in stool (ICD-10 - K92.1) Plan Of Treatment No Information Progress Notes * HERMELINDA CALIXDOB: 2 (54 yo F)Acc No.[id number]:09/26/2023 Patient: HERMELINDA CAM Provider: BRYANT Castro :1970 A ge:52 Y S ex:Female Date:09/26/2023 Address:[address] [place] [address] [place], [id number] Pcp:Marcelo Reese Subjective: * Chief Complaints: * [...] Procedure Codes: 3 6416 CAPILLARY BLOOD DRAW, 60592 CBC WITH AUTO DIFF * Images: Billing Information: * Visit Code: * Procedure Codes: 56916 CAPILLARY BLOOD DRAW. 96879 CBC WITH AUTO DIFF. * Electronic signature of BRYANT Thompson on 11/23/2024 at 05:31 PM EDT Sign off status: Pending * Provider: BRYANT Castro Date: 0 09/26/2023 Generated for Bar ruffin/Nic/Marthasmitting on: 1 05:31 PM EDT
--- OUTSIDE RECORDS SUMMARY | 2024-10-12 08:54 | XMS_ITS | Encounter Summary ---
Author Organization Healthcare Address [address] [place] [address] Care Team Providers Care Adjunct Physical Education Instructor Name Role Phone Marcelo Reese MD Primary Care Provider [phone] Encounter Details Date Type Department Care Team (Latest Contact Info) Description 10/12/2024 8:54 AM EDT - 10/12/2024 9:55 AM EDT Hospital Encounter PAV H Pulmonary Function Testing [address] [place] [address] End stage renal disease ([facility]) Discharge Disposition: Home or Self Care Social History Tobacco Use Types Packs/Day Years [...] drink first t caron in the morning (EYE-BACTERIOLOGIST DAIRY) to steady your nerves or to get [...] Ajay Kaminski RN documented in this encounter Medications at Time of Discharge calcitriol (Rocaltrol) 0.5 MCG capsule Take 2 capsules (1 mcg) by mouth daily. 180 capsule 3 04/11/2024 04/11/2025 carvedilol (Coreg) 6.25 MG tablet Take 1 tablet by mouth 2 times a day with meals. 180 tablet 3 09/27/2024 09/27/2025 FLUoxetine (PROzac) 20 MG capsule Take 2 capsules by mouth daily. 12/20/2023 potassium chloride CR (Klor-Con M20) 20 MEQ ER tablet Take 1 tablet (20 mEq) by mouth 2 (two) times a day. Do not crush or chew. 60 tablet 11 10/07/2022 documented as of this encounter Plan of Treatment Not on file documented as of this encounter Procedures Procedure Name Priority Date/Time Associated Diagnosis Comments HC DIFFUSING CAPACITY - CARBON MONOXIDE DIFFUSING CAPACITY Routine 10/12/2024 9:54 AM EDT End stage renal disease (CMS/HCC) documented in this encounter Results * (ABNORMAL) Pulmonary Function Testing (10/12/2024 9:54 AM EDT) KYX9JHUO 3.26 2.35 - 3.73 L VYAIRE PFT ILW7CUV 3.19 2.35 - 3.73 L VYAIRE PFT FVC PRED 3.03 VYAIRE PFT FVC LLN 2.35 VYAIRE PFT FVCPREZSCORE 0.38 VYAIRE PFT FVCPRE%PRED 105 % % VYAIRE PFT FVCPOSTZSCORE 0.55 VYAIRE PFT FVCPOST%PRED 108 % % VYAIRE PFT FVCCHNG 72.00 VYAIRE PFT FVC%CHG 2 % % VYAIRE PFT FVC PREDAUTALTA [facility]IST[facility] [employer] GLI (2011) VYAIRE PFT FVC Z-SCORE 0.38 0.55 VYAIRE PFT QNY71AGIG 2.71 1.88 - 2.96 L VYAIRE PFT FEV1 PRE 2.57 1.88 - 2.96 L VYAIRE PFT FEV1 PRED 2.43 VYAIRE PFT FEV1 LLN 1.88 VYAIRE PFT RDI4OWQZFULAO 0.43 VYAIRE PFT FEV1_Pre%Pred 106 % % VYAIRE PFT WKT0RIVCAUSEPC 0.88 VYAIRE PFT RDO3PQLO%PRED 112 % % VYAIRE PFT GEL5QNDJ 147.20 VYAIRE PFT FEV1%CHG 6 % % VYAIRE PFT FEV1 PREDAUTH US_[employer] GLI (2011) VYAIRE PFT FEV1 Z-SCORE 0.43 0.88 VYAIRE PFT XZN9FIB9KEDG 83.28 69.18 - 90.22 % VYAIRE PFT FEV1/FVC PRE 80.54 69.18 - 90.22 % VYAIRE PFT TUO7RSEJSEC 81 VYAIRE PFT CBN6EHWYZA 69 VYAIRE PFT PSU6YVBMVGYHWRKP -0.01 VYAIRE PFT JEZ1WFZUZS%PRED 100 % % VYAIRE PFT WAS0TJOUOATZOKDCB 0.44 VYAIRE PFT XSM2UOYKXOM%PRED 103 % % VYAIRE PFT VIU4DDRFRLN 2,737 VYAIRE PFT FYK6WJZ%CHG 3 % % VYAIRE PFT VLO9BWPMXHAK [facility] (2011) VYAIRE PFT VYK0FTZEIARDX -0 0 VYAIRE PFT VNY45-95%_POST 2.70 1.33 - 3.84 L/s VYAIRE PFT FEO38-16% PRE 2.33 1.33 - 3.84 L/s VYAIRE PFT GPJ25-25%_Pred 2.42 VYAIRE PFT ZTD3100%LLN 1.33 VYAIRE PFT YSW5259%PREZSCORE -0.12 VYAIRE PFT EMB6994%PRE%PRED 96 % % VYAIRE PFT GMC3764%POSTZSCORE 0.35 VYAIRE PFT RKW8950%POST%PRED 111 % % VYAIRE PFT XKO2781%CHNG 368.27 VYAIRE PFT ZCP3458%%CHG 16 % % VYAIRE PFT RWG6384%PREDAUTClaiborne County Hospital (2011) VYAIRE PFT EBE7NWEJ 7.84(A) 4.66 - 7.77 L/s VYAIRE PFT PEF PRE 7.82(A) 4.66 - 7.77 L/s VYAIRE PFT PEF PRED 6.21 VYAIRE PFT PEF LLN 4.66 VYAIRE PFT PEFPREZSCORE 1.70 VYAIRE PFT PEFPRE%PRED 126 % % VYAIRE PFT PEFPOSTZSCORE 1.73 VYAIRE PFT PEFPOST%PRED 126 % % VYAIRE PFT PEFCHNG 26.00 VYAIRE PFT PEF%CHG 0 % % VYAIRE PFT PEF PREDAUT NHANES III (1998) VYAIRE PFT LZQHZSGQYHZNWZTJ2WGH 17.61 14.63 - 23.90 ml/(min* mmHg) VYAIRE PFT DLCOSINGLEBREATH PRED 18.83 VYAIRE PFT DLCOSINGLEBREATH LLN 14.63 VYAIRE PFT DLCOSINGLEBREATH Z-SCORE -0.45 VYAIRE PFT DLCOSINGLEBREATH % PRED 93.5 % VYAIRE PFT DLCOSINGLEBREATH PREDLOV[facility] Stanojevic TLCO GLI (2019) VYAIRE PFT DLCOSINGLEBREATH Z-SCORE -0.45 10/12/2024 9:51 AM EDT VYAIRE PFT QOFMXOHZUHESDQCHK6RR E 17.61 14.63 - 23.90 ml/(min* mmHg) VYAIRE PFT DLCOCSINGLEBREATH PRED 18.83 VYAIRE PFT DLCOCSINGLEBREATH LLN 14.63 VYAIRE PFT DLCOCSINGLEBREATH Z-SCORE -0.45 VYAIRE PFT DLCOCSINGLEBREATH % PRED 93.5 % VYAIRE PFT DLCOCSINGLEBREATH PREDLOV[facility] Stanojevic TLCO GLI (2019) VYAIRE PFT QKIYAI3LTR 3.96 3.44 - 5.52 ml/(min* mmHg*L) VYAIRE PFT DLCOVAPRED 4.42 VYAIRE PFT DLCOVALLN 3.44 VYAIRE PFT DLCOVAZSCORE -0.75 VYAIRE PFT DLCOVA%PRED 89.6 % VYAIRE PFT DLCOVAPREDAUT Stanojevic TLCO GLI (2019) VYAIRE PFT DLCOVAZSCORE -0.75 10/12/2024 9:51 AM EDT VYAIRE PFT IZKOLMVGP4YVT 3.96 3.44 - 5.52 ml/(min* mmHg*L) VYAIRE PFT DLCOC SB/VA PRED 4.42 VYAIRE PFT DLCOC SB/VA LLN 3.44 VYAIRE PFT DLCOC SB/VA Z-SCORE -0.75 VYAIRE PFT DLCOC SB/VA % PRED 89.6 % VYAIRE PFT DLCOC SB/VA PREDL[facility] Stanojevic TLCO GLI (2019) VYAIRE PFT DLCOC SB/VA Z-SCORE -0.75 10/12 9:51 AM EDT VYAIRE PFT UTOPWACXWQAROC8LJB 4.45 3.51 - 5.17 L VYAIRE PFT VASINGLEBREATH PRED 4.30 VYAIRE PFT VASINGLEBREATH LLN 3.51 VYAIRE PFT VASINGLEBREATH Z-SCORE 0.29 VYAIRE PFT VASINGLEBREATH % PRED 103.4 % VYAIRE PFT VASINGLEBREATH PREDLOV[facility] Stanojevic TLCO GLI (2019) VYAIRE PFT VASINGLEBREATH Z-SCORE 0.29 10/12/2024 9:51 AM EDT VYAIRE PFT IFCJEKTDRVMODJA2BTH 3.18 2.35 - 3.73 L VYAIRE PFT IVCSINGLEBREATH PRED 3.03 VYAIRE PFT IVCSINGLEBREATH LLN 2.35 VYAIRE PFT IVCSINGLEBREATH Z-SCORE 0.36 VYAIRE PFT IVCSINGLEBREATH % PRED 105.1 % VYAIRE PFT IVCSINGLEBREATH PREDLOVEL[facility] US_[employer]anjer GLI (2011) VYAIRE PFT SERAFIN% VCMAX PRE 93.94 % VYAIRE PFT TLC SB PRE 4.55 3.80 - 5.61 L VYAIRE PFT TLCSINGLEBREATH PRED 4.65 VYAIRE PFT TLCSINGLEBREATH LLN 3.80 VYAIRE PFT TLCSINGLEBREATH Z-SCORE -0.19 VYAIRE PFT TLCSINGLEBREATH % PRED 97.7 % VYAIRE PFT TLCSINGLEBREATH PREDLOVEL[facility] Santacruz Lung volumes GLI (2019)__ VYAIRE PFT HB PRE 13.40 g(Hb)/dL VYAIRE PFT BDV7KEN 4.87 3.80 - 5.61 L VYAIRE PFT TLCPRED 4.65 VYAIRE PFT TLCLLN 3.80 VYAIRE PFT TLCULN 5.61 VYAIRE PFT TLCZSCORE 0.38 VYAIRE PFT TLC%PRED 104.5 % V[facility]AIRE PFT TLCPREDQuincy [facility] Center Lung volumes GLI (2019)__ VYAIRE PFT VC0PRE 3.39 2.35 - 3.73 L VYAIRE PFT VCPRED 3.03 VYAIRE PFT VCLLN 2.35 VYAIRE PFT VCULN 3.73 VYAIRE PFT VCZSCORE 0.85 VYAIRE PFT VC%PRED 111.9 % VYAIRE PFT VCPREDAUT US_Quanjer GLI (2011) VYAIRE PFT IC0PRE 1.78 1.57 - 3.05 L VYAIRE PFT ICPRED 2.31 VYAIRE PFT ICLLN 1.57 VYAIRE PFT ICULN 3.05 VYAIRE PFT IC Z-SCORE -1.18 VYAIRE PFT IC%PRED 77.1 % VYAIRE PFT ICPREDQuincy Medical Center Lung volumes GLI (2019)__ VYAIRE PFT VEYNPMAM3LPL 3.09 1.67 - 3.23 L VYAIRE PFT FRCPLETH PRED 2.36 VYAIRE PFT FRCPLETH LLN 1.67 VYAIRE PFT FRCPLETH ULN 3.23 VYAIRE PFT FRCPLETH Z-SCORE 1.40 VYAIRE PFT FRCPLETH % PRED 130.8 % VYAIRE PFT FRCPLET PREDAUTMet[facility] Lung volumes GLI (2019)__ VYAIRE PFT TJQ8HYB 1.61(A) 0.33 - 1.57 L VYAIRE PFT ERVPRED 0.84 VYAIRE PFT ERVLLN 0.33 VYAIRE PFT ERVULN 1.57 VYAIRE PFT ERV Z-SCORE 1.71 VYAIRE PFT ERV%PRED 190.3 % [facility] ERVPEl[facility] Lung volumes GLI (2019)__ VYAIRE PFT RV0PRE 1.48 0.84 - 2.15 L VYAIRE PFT RVPRED 1.41 VYAIRE PFT RVLLN 0.84 VYAIRE PFT RVULN 2.15 VYAIRE PFT RVZSCORE 0.17 VYAIRE PFT RV%PRED 104.9 % VYAIRE PFT RVPREDQuincy Medical Center Lung volumes GLI (2019)__ VYAIRE PFT RV%EMR8BTK 30.41 19.53 - 41.05 % VYAIRE PFT RV%TLCPRED 30 VYAIRE PFT RV%TLCLLN 20 VYAIRE PFT RV%TLCULN 41 VYAIRE PFT RV%TLCZSCORE 0.08 VYAIRE PFT RV%TLC%PRED 101.7 % VYAIRE PFT RV%TLCPREDAUTH Santacruz Lung volumes GLI (2019)__ VYAIRE PFT Anatomical Region Laterality Modality PFT 10/12/2024 9:05 AM EDT Narrative 10/16/2024 8:24 PM EDT Pulmonary Function Testing Report Nat Hatch 53 y.o. underwent pulmonary function testing today at the [facility]. The patient underwent spirometry, lung volumes by body plethysmography, and diffusion capacity testing testing. All tests were appropriately administered via ATS/ERS criteria. Spirometry: Test quality: A. Test is acceptable and useable for interpretation. Normal spirometry There is no significant positive bronchodilator response. Lung Volumes: Test Quality: Appropriate QA standards were met. Normal lung volumes. Diffusion Capacity: Test Quality: A. Data meets the highest standards for acceptability. Diffusion capacity uncorrected for Hb is normal. Trend: There are no prior studies for comparison. us Macho España MD PFT ORDERABLES Final Res ult documented in this encounter Visit Diagnoses Diagnosis End stage renal disease documented in this encounter Additional Health Concerns Assessment Noted Time A fall risk assessment has been complete d for the patient 06/09/2024 7:48 AM EDT A Body Mass Index follow-up plan has been documented for the patient 10/13/2024 10:32 AM EDT documented as of this encounter Care Teams Adjunct Physical Education Instructor Relationship Specialty Start Date End Date Marcelo Reese MD [address] [place] [address] PCP - General 06/22/20 documented as of this encounter
--- OUTSIDE RECORDS SUMMARY | 2024-10-12 09:56 | XMS_ITS | Encounter Summary ---
Author Organization [facility] Address [address] [place] [address] Care Team Providers Care Geophysical Prospecting Permit Agent Name Role Phone Marcelo Reese MD Primary Care Provider [phone] Reason for Referral * Imaging (Routine) - Closed Specialty Diagnoses / Procedures Referred By Fara lan Referred To Contact Radiology Diagnoses End stage renal disease Procedures CT Abdomen Pelvis wo IV Contrast - No Oral Contrast Macho España MD [address] [address] Phone: tel: fax: Referral ID Status Reason Start Date Expiration Date Visits Re quested Visits Authorized [id number] Closed 09/14/2024 03/16/2026 1 1 Reason for Visit * Imaging (Routine) - Closed Specialty Diagnoses / Procedures Referred By Fara lan Referred To Contact Radiology Diagnoses End stage renal disease Procedures CT Abdomen Pelvis wo IV Contrast - No Oral Contrast Macho España MD [address] [place] [phone] Phone: tel: fax: Referral ID Status Reason Start Date Expiration Date Visits Re quested Visits Authorized [id number] Closed 09/14/2024 03/16/2026 1 1 Encounter Details Date Type Department Care Team (Latest Contact Info) Description 10/12/2024 9:56 AM EDT - 10/12/2024 11:59 PM EDT Hospital Encounter PAV A Radiology [address] [place] [address] End stage renal disease ([facility]) Discharge Disposition: Home or Self Care Social [...] drink first t caron in the morning (EYE-MUTTON PUNCHER) to steady your nerves or to get [...] this encounter Medications at Time of Discharge Auryxia 1 GM 210 MG(Fe) tablet Take 2 tablets by mouth 3 times a day with meals. 10/12/2024 calcitriol (Rocaltrol) 0.5 MCG capsule Take 2 [...] crush or chew. 60 tablet 11 10/07/2022 Tenapanor HCl, CKD, (Xphozah) 30 MG tablet Take 30 mg by mouth 2 times a day. documented as of this encounter Plan of Treatment Not on file documented as of this encounter Procedures Procedure Name Priority Date/Time Associated Diagnosis Comments CT ABDOMEN PELVIS WO IV CONTRAST Routine 10/12/2024 10:24 AM EDT End stage renal disease (CMS/HCC) documented in this encounter Results * CT Abdomen Pelvis wo IV Contrast - No Oral Contrast (10/12/2024 10:24 AM EDT) Anatomical Region Laterality Modality Abdomen, Pelvis Computed Tomogra phy Impressions 10/12/2024 1:03 PM EDT Changes of bilateral renal parenchymal disease. Bilateral simple to minimally complicated renal cortical cysts. Atherosclerotic calcifications of aorta and iliac arteries with relative sparing of bilateral external iliac arteries. CRITICAL RESULT: No. COMMUNICATION: Per this written report. By electronically signing this report, I, the attending physician, attest that I have personally reviewed the images/data for the above examination(s) and agree with the final edited report. Drafted by GALEN Reyes on 10/12/2024 11:07 AM Final report signed by Ramu Crawford MD on 10/12/2024 1:03 PM Narrative 10/12/2024 1:03 PM EDT CLINICAL INDICATION: Kidney Transplant evaluation TECHNIQUE: Multiple axial CT images were obtained from lung bases through pubic symphysis without the administration of IV contrast. Reformatted images in the coronal and sagittal planes were generated from the axial data set to facilitate diagnostic accuracy. Total DLP (Dose-Length Product): 143.58 mGy.cm. Please note: The reported value represents the total of one or more individual components during the CT acquisition on this date and at this time, and as such, the same value may appear in more than one CT report depending on the interpreting/reporting physicians. COMPARISON: Noncontrast CT abdomen and pelvis September 05, 2023 FINDINGS: Lower Chest: No suspicious findings., Scarring and consolidation in the partially imaged right lower lobe. Recommend CT chest for further evaluation. Analysis of the abdominopelvic viscera is limited by the absence of intravenous contrast material. Solid Abdominal Organs: Unremarkable liver attenuation. A 5 mm low-density focus in liver, favored to represent cyst. Additional tiny hepatic low densities. Post cholecystectomy. No intra or extrahepatic biliary dilatation. Unremarkable spleen. No suspicious pancreatic findings. No suspicious adrenal findings. No suspicious renal mass lesions. Atrophic pancreas both kidneys. Multiple bilateral renal cortical cysts. Most cysts are simple, likely some cyst shows wall calcifications (series 2, image 27). No hydronephrosis. GI Tract/Mesentery/Peritoneum: Small hiatal hernia. Mild lower esophageal wall thickening. The large and small bowel appear normal in caliber. Sigmoid diverticulosis without changes of diverticulitis. No evidence of inflammatory change. No suspicious peritoneal/mesenteric findings. Pelvic Viscera: No suspicious pelvic mass lesions. Partially distended urinary bladder. Lymph Nodes/Vasculature: No lymphadenopathy by CT size criteria. The aortoiliac vasculature is normal in caliber. Mild circumferential atherosclerotic calcifications of aorta. Moderate calcification of right common iliac artery with mild calcification of left common iliac artery. Moderate calcification of both internal iliac arteries. Bilateral external iliac arteries are near normal caliber without much calcification. Free Fluid: No ascites. Musculoskeletal and Body Wall: No aggressive or suspicious findings. Degenerative changes in spine. Sclerotic changes of spine, consistent with renal osteodystrophy. Procedure Note Ramu Crawford MD - 10/12/2024 CLINICAL INDICATION: Kidney Transplant evaluation TECHNIQUE: Multiple axial CT images were obtained from lung bases through pubicsymphysis without the administration of IV contrast. Reformatted images inthe coronal and sagittal planes were generated from the axial data set tofacilitate diagnostic accuracy. Total DLP (Dose-Length Product): 143.58 mGy.cm. Please note: The reportedvalue represents the total of one or more individual components during theCT acquisition on this date and at this time, and as such, the same valuemay appear in more than one CT report depending on theinterpreting/reporting physicians. COMPARISON: Noncontrast CT abdomen and pelvis September 05, 2023 FINDINGS: Lower Chest: No suspicious findings., Scarring and consolidation in thepartially imaged right lower lobe. Recommend CT chest for furtherevaluation. Analysis of the abdominopelvic viscera is limited by the absence ofintravenous contrast material. Solid Abdominal Organs: Unremarkable liver attenuation. A 5 mm low-densityfocus in liver, favored to represent cyst. Additional tiny hepatic lowdensities. Post cholecystectomy. No intra or extrahepatic biliarydilatation. Unremarkable spleen. No suspicious pancreatic findings. Nosuspicious adrenal findings. No suspicious renal mass lesions. Atrophic pancreas both kidneys. Multiplebilateral renal cortical cysts. Most cysts are simple, likely some cystshows wall calcifications (series 2, image 27). No hydronephrosis. GI Tract/Mesentery/Peritoneum: Small hiatal hernia. Mild lower esophagealwall thickening. The large and small bowel appear normal in caliber.Sigmoid diverticulosis without changes of diverticulitis. No evidence ofinflammatory change. No suspicious peritoneal/mesenteric findings. Pelvic Viscera: No suspicious pelvic mass lesions. Partially distendedurinary bladder. Lymph Nodes/Vasculature: No lymphadenopathy by CT size criteria. Theaortoiliac vasculature is normal in caliber. Mild circumferentialatherosclerotic calcifications of aorta. Moderate calcification of rightcommon iliac artery with mild calcification of left common iliac artery.Moderate calcification of both internal iliac arteries. Bilateral externaliliac arteries are near normal caliber without much calcification. Free Fluid: No ascites. Musculoskeletal and Body Wall: No aggressive or suspicious findings.Degenerative changes in spine. Sclerotic changes of spine, consistent withrenal osteodystrophy. IMPRESSION: Changes of bilateral renal parenchymal disease. Bilateral simple to minimally complicated renal cortical cysts. Atherosclerotic calcifications of aorta and iliac arteries with relativesparing of bilateral external iliac arteries. CRITICAL RESULT: No. COMMUNICATION: Per this written report. By electronically signing this report, I, the attending physician, rhea I have personally reviewed the images/data for the aboveexamination(s) and agree with the final edited report. Drafted by GALEN Reyes on 10/12/2024 11:07 AM Final report signed by Ramu Crawford MD on 10/12/2024 1:03 PM Macho España MD IMG CT PROCEDURES Final R esult documented in this encounter Visit Diagnoses Diagnosis End stage renal disease documented in this encounter Additional Health Concerns Assessment Noted Time A fall risk assessment has been complete d for the patient 06/09/2024 7:48 AM EDT A Body Mass Index follow-up plan has been documented for the patient 10/13/2024 10:32 AM EDT documented as of this encounter Care Teams Geophysical Prospecting Permit Agent Relationship Specialty Start Date End Date Marcelo Reese MD [address] [place] [address] PCP - General 06/22/20 documented as of this encounter
--- OUTSIDE RECORDS SUMMARY | 2024-10-12 11:00 | XMS_ITS | Encounter Summary ---
Author Organization Healthcare Address [address] [place] [address] Care Team Providers Care Carpenter Labor Supervisor Name Role Phone Marcelo Reese MD Primary Care Provider [phone] Reason for Visit * Consultation (Routine) - Closed Specialty Diagnoses / Procedures Referred By Fara lan Referred To Contact Transplant Diagnoses End stage renal disease Macho España MD [address] [address] Phone: tel: fax: [facility] [address] [address] Phone: tel: fax: Referral ID Status Reason Start Date Expiration Date V isits Requested Visits Authorized [id number] Closed Specialty Services Required 09/14/2024 03/16/2026 1 1 Encounter Details Date Type Department Care Team (Late st Contact Info) Description 10/12/2024 11:00 AM EDT Clinical Support [facility] [address] [address] [facility] - CLINICAL NUTRITION [address] [place] [address] Social History Tobacco Use Types [...] drink first t caron in the morning (EYE-NEON TUBE PUMPER) to steady your nerves or to get [...] on file documented as of this encounter Last Filed Vital Signs Vital Sign Reading Time Taken Comments Blood Pressure - - Pulse - - Temperature - - Respiratory Rate - - Oxygen Saturation - - Inhaled Oxygen Concentration - - Weight 47 kg (103 lb 9.9 oz) 10/12/2024 11:15 AM EDT Height - - Body Mass Index 18.95 06/09/2024 7:43 AM EDT documented in this encounter Functional Status * Are you [...] documented in this encounter Miscellaneous Notes * Clinician Note - Naresh Nugent, JUDITH - 10/12/2024 11:00 AM EDT Contraindications to Transplant There are no nutritional barriers to transplant - BMI: 19 and A1c: 4.9% is within guidelines for kidney transplant. *Note: Patient with hx of eating disorder and low BMI. Recommend healthy weight maintenance and surgeon weight check/clearance prior to a potential transplant. Transplant Clinic Nutrition Evaluation Evaluation Type: Listing Assessment Organ Group: Kidney HPI Nat Hatch is a 53 y.o. female with ESRD secondary to unknown etiology seen in clinic fora kidney transplant evaluation. Past Medical/Surgical History Past Medical History[1] Surgical History[2] Labs Lab Results Component Value Date GLUCOSE 90 10/12/2024 CALCIUM 9.8 10/12/2024 NA 141 10/12/2024 K 5.0 (H) 10/12/2024 CO2 26 10/12/2024 CL 101 10/12/2024 BUN 18 10/12/2024 CREATININE 7.78 (H) 10/12/2024 Lab Results Component Value Date CALCIUM 9.8 10/12/2024 PHOS 5.3 (H) 10/12/2024 Lab Results Component Value Date ALT 10 10/12/2024 AST 22 10/12/2024 ALKPHOS 185 (H) 10/12/2024 BILITOT 0.4 10/12/2024 Lab Results Component Value Date CHOL 228 (H) 10/12/2024 CHOL 163 09/02/2017 Lab Results Component Value Date HDL 63 10/12/2024 HDL 45 09/02/2017 Lab Results Component Value Date LDLCALC 150 (H) 10/12/2024 LDLCALC 90 09/02/2017 Lab Results Component Value Date TRIG 86 10/12/2024 TRIG 140 09/02/2017 Lab Results Component Value Date CRATIO 4 10/12/2024 [facility] 09/02/2017 3.6 Total Cholesterol/HDL Ratio Reference Range: Desirable: <5.0 Borderline high: 5.0 to 6.0 High: >6.0 Lab Results Component Value Date HGBA1C 4.9 10/12/2024 Medications Reviewed current outpatient medications. Pertinent medications include: Current Medications[3] Nutrition History Previous Visit with Dietitian? Yes, @ dialysis. Home Diet: Renal diet Appetite: Good Nutrition-Related Symptoms: None Food Allergies: No Known Food Allergies Food Preferences: No cultural or buddhist food preferences Fluid Retention: None per patient or previous provider assessment on 06/09/24. Type of Dialysis: Hemodialysis x 2 days week Additional Information: Visited patient in clinic on 10/12/24. Patient's weight is stable since her last clinic visit on 06/09/24 ([address] recommend healthy weight maintenance with no loss in order to prevent any weight barriers to transplant and to promote optimal post-transplant outcomes with a potential kidney transplant. Patient acknowledged understanding. RD reviewed diet and exercise hx with patient and provided appropriate recommendations. Upon diet recall patient reports good appetite and intake, eating regular meals and snacks. She states that she and her eat almost all meals at home and limit intake of processed food. Typical food choices include: chicken, fish, fruit and vegetables, cereal, cheese and crackers. Typical beverages are Sprite, water, and Gatorade. She is aware that sports drinks are not recommended regularly with ESRD d/t increased elytes. Patient reports regular physical activity/exercise as well including; strength training (weight lifting) and cardio exercises. RD encouraged continued regular healthy diet and regular exercise to promote overall health and wellness. RD provided pre-transplant nutrition education for a potential kidney transplant. Nutrition education included; maintaining a healthy weight, discussing the kidney friendly diet including; low potassium, low phosphorus, low sodium, and adequate protein intake - (appropriate for patients on dialysis) , monitoring potassium and phosphorus levels regularly and adjusting diet appropriately, monitoringand maintaining good heart health, managing good diabetes/BG control, and incorporating regular physical activity to promote a healthy lifestyle. Patient was engaged and participated throughout visit. RD provided opportunity for patient to ask any additional nutrition questions related to kidney transplant. RD provided contact information and encouraged them to reach out with any additional nutrition related questions/needs. Anthropometric Measurements Height: 157.5 cm Current Weight: 47 kg [facility] Body Weight: 50 kg (94%) Adjusted Body Weight: N/A BMI: 19 Weight Evaluation: Normal (BMI 18.5 - 24.9) Weight History: Wt Readings from Last 12 Encounters: 10/12/24 47 kg (103 lb 9.9 oz) 06/09/24 44 kg (97 lb) 12/25/22 45.5 kg (100 lb 5 oz) 10/22/22 41.9 kg (92 lb 6 oz) 09/26/22 43.1 kg (95 lb) 06/12/22 43.5 kg (95 lb 14.4 oz) 06/03/22 45.5 kg (100 lb 5 oz) 05/29/22 42 kg (92 lb 9.5 oz) 04/08/22 40.7 kg (89 lb 11.6 oz) 04/07/22 40.9 kg (90 lb 3.2 oz) 03/07/22 44.1 kg (97 lb 3.6 oz) 01/03/22 37.9 kg (83 lb 8.9 oz) Estimated Needs Kcal/K - 35 Kcal recommended: 1500 - 1750 Kcal needs based on: [place] Body Weight Grams Protein/K.0 - 1.2 Grams Protein recommended: 50 - 60 Protein needs based on: [facility] Body Weight *Used [place] [facility] Body Weight to promote healthy weight maintenance. Nutrition Diagnosis Increased nutrient needs calories and protein related to increased metabolic demand as evidence by patient with ESRD and need for regular hemodialysis x 2 days/week, and need to maintain a healthy weight prior to a potential kidney transplant. Status of Nutrition Diagnosis: New Nutrition Interventions - Education: pre-transplant - Nutrition education materials: provided - Patient verbalized understanding Monitoring and Evaluation RD contact information provided to patient. RD available for further consult as needed. Naresh Nugent, RD, LD [1] Past Medical History: Diagnosis Date Anemia, unspecified Anemia Anorexia Anorexia Bulimia nervosa Bulimia Chronic kidney disease Gout, unspecified Gout Hyperparathyroidism, unspecified (CMS/HCC) Hyperparathyroidism Personal history of urinary calculi History of renal calculi Squamous cell carcinoma of skin, unspecified Squamous cell carcinoma [2] Past Surgical History: Procedure Laterality Date CHOLECYSTECTOMY N/A Cholecystectomy from [facility] CYST REMOVAL DENTAL SURGERY N/A Dental surgery from [facility] [3] Current Outpatient Medications: Auryxia 1 GM 210 MG(Fe) tablet, Take 2 tablets by mouth 3 times a day with meals., Disp: , Rfl: calcitriol (Rocaltrol) 0.5 MCG capsule, Take 2 capsules (1 mcg) by mouth daily. (Patient taking differently: Take 3 capsules by mouth daily.), Disp: 180 capsule, Rfl: 3 carvedilol (Coreg) 6.25 MG tablet, Take 1 tablet by mouth 2 times a day with meals., Disp: 180 tablet, Rfl: 3 FLUoxetine (PROzac) 20 MG capsule, Take 2 capsules by mouth daily., Disp: , Rfl: potassium chloride CR (Klor-Con M20) 20 MEQ ER tablet, Take 1 tablet (20 mEq) by mouth 2 (two) times a day. Do not crush or chew. (Patient taking differently: Take 1 tablet by mouth daily. Do not crush or chew.), Disp: 60 tablet, Rfl: 11 Tenapanor HCl, CKD, (Xphozah) 30 MG tablet, Take 30 mg by mouth 2 times a day., Disp: , Rfl: documented in this encounter Plan of Treatment [...] documented as of this encounter Care Teams Carpenter Labor Supervisor Relationship Specialty Start Date End Date Marcelo Reese MD [address] [place] [address] PCP - General 06/22/20 documented as of this encounter
--- OUTSIDE RECORDS SUMMARY | 2024-10-12 12:00 | XMS_ITS | Encounter Summary ---
Author Organization Healthcare Address [address] [place] [address] Care Team Providers Care Heel Slugger Name Role Phone Marcelo Reese MD Primary Care Provider [phone] Reason for Visit * Consultation (Routine) - Closed Specialty Diagnoses / Procedures Referred By Fara lan Referred To Contact Transplant Diagnoses End stage renal disease Macho España MD [address] [address] Phone: tel: fax: [facility] [address] [address] Phone: tel: fax: Referral ID Status Reason Start Date Expiration Date V isits Requested Visits Authorized [id number] Closed Specialty Services Required 09/14/2024 03/16/2026 1 1 Encounter Details Date Type Department Care Team (Late st Contact Info) Description 10/12/2024 12:00 PM EDT Pharmacist Visit [facility] [address] [address] Emily Payne, PharmD [address] [place] [address] Social History Tobacco Use Types Packs/Day Years [...] drink first t caron in the morning (EYE-HAT BLOCKING MACHINE OPERATOR) to steady your nerves or to get [...] encounter Miscellaneous Notes * Clinician Note - Emily Payne, PharmD - 10/12/2024 12:00 PM EDT PRE-TRANSPLANT PHARMACY EVALUATION Patient name: Nat Hatch : 1970 (53 y.o.) Type of transplant: Kidney Previous transplant(s) (previous transplant date(s), if applicable): No Allergies: Allergies[1] Pertinent allergies/medication intolerances related to transplant medications: No Current Medications: Current Outpatient Medications Medication Instructions Auryxia 1 GM 210 MG(Fe) tablet 2 tablets, Oral, 3 times daily with meals calcitriol (ROCALTROL) 1 mcg, Oral, Daily carvedilol (COREG) 6.25 mg, Oral, 2 times daily with meals FLUoxetine (PROZAC) 40 mg, Oral, Daily potassium chloride CR (Klor-Con M20) 20 MEQ ER tablet 20 mEq, Oral, 2 times daily, Do not crush or chew. Xphozah 30 mg, 2 times daily Hepatitis Serologies (liver transplant only): N/A Medication Review: Medication reconciliation performed during transplant evaluation: yes Benzodiazepine/opiate use prior to transplant: No Anticoagulation/antiplatelet use prior to transplant: No Adherence concerns identified: No Medication education provided: Typical post-transplant immunosuppressive and anti-infective prophylaxis medications were reviewed briefly with the patient. Medication indications, anticipated duration of medication therapy, and common side effects were discussed. A sample post-transplant medicationregimen sheet was provided and reviewed with the patient. Patient was educated on the importance ofmedication adherence for graft survival post-transplant. Patient was given the opportunity to ask questions, all of which were addressed. Medication issues/concerns to be addressed prior to listing: none Perioperative antibiotic plan: no beta-lactam allergy - standard antibiotic regimen Contraindications to transplant: Any issues/concerns noted above should be addressed prior to listing. Otherwise, there are no identified pharmacologic contraindications to transplant. Emily Payne, BirdieD Transplant Clinical Pharmacist [1] Allergies Allergen Reactions Penicillins Rash and Unknown - Patient states they do not know rxn details Happened in childhood - amoxicillin tolerated in adulthood. documented in this encounter Plan of Treatment [...] documented as of this encounter Care Teams Heel Slugger Relationship Specialty Start Date End Date Marcelo Reese MD [address] [place] [address] PCP - General 06/22/20 documented as of this encounter
--- OUTSIDE RECORDS SUMMARY | 2024-10-18 11:00 | XMS_ITS | Encounter Summary ---
Author Organization [facility] Address [address] [place] [id number] Care Team Providers Care Therapist Phys Name Role Phone Marcelo Reese MD Primary Care Provider + [phone] Source Comments This information has been disclosed [...] release of HIV test results or diagnoses. [id number] Health Encounter Details Date Type Department Care Team (Late st Contact Info) Description 2024 11:00 AM EDT Office Visit [facility] Psychiatry Transplant at [facility] [address] [facility] [address] [place] [id number] Gabby Montemayor, [facility] [address] [facility] [place] [phone] Anorexia (Primary Dx); Bulimia nervosa in remission Social History Tobacco Use Types Packs/Day Years [...] 12/18 Assistance needed for: Not on file 11/09/202 3 Yearly Questionnaire Answer Date Record ed [...] as of this encounter Progress Notes * Gabby Montemayor, PsyD - 2024 11:00 AM EDT Transplant Psychology Yearly Waitlist Follow-up Mrs. Hatch is a 54-year old female diagnosed with ESRD who is currently listed for kidney transplant. PERLA has a history of disordered eating with concern for recent exacerbation at the time of initialevaluation. Plan for yearly follow-up assessment given this history. Seen today for first yearly follow-up assessment. This was a video visit, including two-way audio and video communication, in lieu of an in-person visit. The patient provided verbal consent to use the video visit. The patient location for this telehealth visit is in home. I spent 24 minutes on this call conducting an interview, performing a limited exam by video, with >50% spent educating the patient on my assessment and plan. Mental Status: PERLA was AAOx4 throughout this visit. Speech was normal with respect to rate, volume, and articulation. Eye contact was good. Stated mood was Good . Affect matched. Thought content was logical. Thought processes were clear, coherent. Mental status was within normal limits. Visit Content: PERLA reports that she has been doing well over the past year (previously seen July 2023). She has since switched from PD to HD, and has been feeling much better. Weight loss noted previously has been regained, per report. Denied recurrent of any eating disorder symptoms. PERLA reports generally stable mood. She does share that Prozac dose was increased from 20mg to 40mg daily about 1 month ago. Denied any significant symptom change or events that prompted. She does feelthat the higher dose has helped to take the edge off . Sleep is generally stable. With some nighttime waking attributed to hormonal changes. PERLA is also pursuing re-listing with , and finished up her testing last week. PERLA is seeing Jamila, with [facility] for monthly therapy and medication management. No new or additional mental health concerns identified. Assessment and Plan: History of eating disorder (anorexia, bulimia). ED is stable, with recent weight gain and no new concerns. Mood has been generally stable. PERLA remains eager and motivated for kidney transplant. Reports on-going medication compliance. No concerns regarding safety were noted. Recommend continued engagement in mental health treatment as PERLA moves through the transplant process. Will see again for yearly wait list visit in mid-2025. Visit: 11:04am to 11:28am. Magno Montemayor PsyD [phone] documented in this encounter Plan of Treatment Not on file documented as of this encounter Visit Diagnoses Diagnosis Anorexia- Primary Bulimia nervosa in remission ([facility]) documented in this encounter Care Teams Therapist Phys Relationship Specialty Start Date End Date Marcelo Reese MD [address] [place] [address] [place] [address] PCP - General Family Medicine 03/09/23 documented as of this encounter
--- OUTSIDE RECORDS SUMMARY | 2024-10-22 05:45 | XMS_ITS ---
[facility] [address] [place] [address] [address] [facility] [address] [place] [id number] Care Team Providers Care Manager [place] Name Role Phone Marcelo Reese Primary Care Provider Allergies Allergen (clinical drug ingredient) Drug/Non Drug Allergy documented on EMR Reaction Allergy Type Onset Date Status spironolactone Aldactone Unknown Drug Allergy Ac tive Substance with penicillin structure and antibacterial mechanism of action (substance) Penicillins Unknown Drug Allergy Active Reason For Referral Diagnosis 1 Colon cancer screeni ng (Z12.11) Diagnosis 2 History of colon chi yps (Z86.0100) Diagnosis 3 End stage renal dise ase (N18.6) Diagnosis 4 Dependence on renal dialysis (Z99.2) [facility] Referring Provider First Name Marcelo Referring Provider Last Name Mary Ann Referring Provider [facility]ity [facility] Referred Organization [facility] Referred Provider CARLENE CARRINGTON [facility] [address] [place],[phone], Referred Provider Specialty Gastroentero logy General Notes Charity Roa 2024 11:04:36 AM > faxed all information to Dr. Carrington office Referral Priority Routine REASON FOR VISIT check up w/labs Medications Medication SIG (Take, Route, Frequency, Duration) Notes Start Date End Date Status Ondansetron 4 MG 1 tablet on the tong ue and allow to dissolve Orally every 6 hours prn; Duration: 10 days 08/11/2022 Not-Takashwini g FLUoxetine HCl 40 MG 1 capsule Orally On ce a day Active FLUoxetine HCl 60 MG 1 tab(s) orally onc e a day (in the morning); Duration: 90 days Not-Taking Jolessa 0.15-0.03 MG 1 tab(s) orally onc e a day; Duration: 91 days Not-Takin g Allopurinol 100 MG 1 tab(s) orally 2 ti mes a day; Duration: 30 day(s) Not-Taking Levothyroxine Sodium 50 MCG 1 tablet in the morning on an empty stomach Orally Once a day; Duration: 30 day(s) 09/22/2023 Not-Taking Potassium Chloride ER 20 MEQ 3 tab(s) orally once a day Active Olmesartan Medoxomil 5 MG 1 tablet Orall y Once a day Not-Taking Calcitriol 0.25 MCG 1 capsule Orally Onc e a day Active Carvedilol 6.25 MG 1 tablet with food Orally Twice a day; Duration: 30 day(s) Active Xphozah 20 MG 1 tablet immediately before meals Orally Twice a day Active Problems Problem Type SNOMED Code ICD Code Onset Dates Problem Status W/U Status Risk Notes Problem End stage renal disease (50231746) End stage renal disease (N18.6) Active confirmed Problem Dependence on renal dialysis (994717935) Dependence on renal dialysis (Z99.2) Active confirmed Problem Hypertensive heart AND chronic kidney disease with congestive heart failure (65650314061735) Hypertensive heart and chronic kidney disease with heart failure and with stage 5 chronic kidney disease, or end stage renal disease (I13.2) Active confirmed Problem Chronic kidney disease stage 5 (092544658) Chronic kidney disease, stage 5 (N18.5) Active confirmed Vital Signs Blood pressure systolic 140 mm Hg 10/23/19 25 Blood pressure diastolic 70 mm Hg 025 Heart Rate 56 /min 10/22/2024 Height 63 in 10/22/2024 Weight 108.8 lbs 10/22/2024 BMI 19.27 kg/m2 10/22/2024 Encounters Encounter Location Date Provider Diagnosis [facility] [address] [facility] [address] [place] [phone] 10/22/2024 Marcelo [place] Anorexia nervosa F50 .00 ; History of colon polyps Z86.0100 ; Colon cancer screening Z12.11 ; End stage renal disease N18.6 ; Dependence on renal dialysis Z99.2 ; Hypertensive heart and chronic kidney disease with heart failure and with stage 5 chronic kidney disease, or end stage renal disease I13.2 ; Chronic kidney disease, stage 5 N18.5 and Body mass index (BMI) of 19.0 to 19.9 in adult Z68.1 Assessments Encounter Date Diagnosis (ICD Code) Assessment Notes Treatment Notes Treatment Clinical Notes Section Notes 10/22/2024 Anorexia nervosa (ICD-10 - F50.00) 10/22/2024 History of colon polyps (ICD-10 - Z86.0100) 10/22/2024 Colon cancer screening (ICD-10 - Z12.11) 10/22/2024 End stage renal disease (ICD-10 - N18.6) 10/22/2024 Dependence on renal dialysis (ICD-10 - Z99.2) 10/22/2024 Hypertensive heart and chronic kidney disease with heart failure and with stage 5 chronic kidney disease, or end stage renal disease (ICD-10 - I13.2) 10/22/2024 Chronic kidney disease, stage 5 (ICD-10 - N18.5) 10/22/2024 Body mass index (BMI) of 19.0 to 19.9 in adult (ICD-10 - Z68.1) 10/22/2024 Other Lab results from recent blood draw at dialysis center reviewed in office today, see notes. Plan Of Treatment Medication Medication Name Sig Start Date Stop Date Notes FLUoxetine HCl 40 MG 1 capsule Orally Once a day Treatment Notes Assessment Notes Other Lab results from rec ent blood draw at dialysis center reviewed in office today, see notes. Referrals Referral Date Details 10/22/2024 10/22/2024, CARLENE HERNÁNDEZ, [facility] [address], [phone], Next Appt Details Follow Up: 1 Year, Reason: Progress Notes * HERMELINDA CALIXDOB: [birth year] (54 yo F)Acc No.[id number]:10/22/2024 Progress Notes Patient: HERMELINDA CAM Provider: Lorenzo Reese M.D. :1970 A ge:54 Y S ex:Female Date:10/22/2024 Address:[address] [place], [place] [id number] Subjective: * Chief Complaints: * 1 . Check up w/labs. * HPI: H PI: 54 year old female presents with c/o Here for follow up on:?lab work. Pt states she is here for a check up and fasting lab work. Pt states she is doing good and denies any concerns today. * ROS: D ERMATOLOGY: no R elle. n o H david. G ASTROENTEROLOGY: no N ausea. n o V omiting. U ROLOGY: no D ifficulty urinating. n o B lood in urine. * Medical History: A norexia PATIENT DOES NOT WANT TO KNOW HER WEIGHT, Lactose Intolerance, Gout, Renal Insufficiency, Dx: 2013, eGFR in the s, s/p kidney biopsy, Chronic kidney disease, stage V as of 2019, on transplant list with , 10/10/2020-peritoneal dialysis; she does at home nightly; remains on transplant list; has monthly labs, 2022- Hemodialysis on Thu & Thu. * Surgical History: L aproscopic cholecystectomy 2005, kidney biopsy June 2014, Colonoscopy - [facility] 09/03/2023. * Hospitalization/Major Diagno stic Procedure: [facility] to [facility] - Small Tear following Colonoscopy 09/05/2023. * Family History: F ather: alive. M other: alive. P aternal Grand Father: . P aternal Grand Mother: . M aternal Grand Father: . M aternal Grand Mother: . 1 brother(s) . . * Social History: C URRENT TOBACCO USE: No S moking Status: Patient does NOT smoke. C affeine: yes, frequency:. Exercise: no. Home smoke detector use: yes. Marital Status: . New since last visit: none. Past smoking status: no. Recreational drug use: Past use:. Alcohol: no. * Medications: T aking Xphozah 20 MG Tablet 1 tablet immediately before meals Orally Twice a day , Taking FLUoxetine HCl 40 MG Capsule 1 capsule Orally Once a day , Taking Carvedilol 6.25 MG Tablet 1 tablet with food Orally Twice a day , Taking Calcitriol 0.25 MCG Capsule 1 capsule Orally Once a day , Taking Potassium Chloride ER 20 MEQ Tablet Extended Release 3 tab(s) orally once a day , Not-Taking Olmesartan Medoxomil 5 MG Tablet 1 tablet Orally Once a day , Not-Taking Levothyroxine Sodium 50 MCG Tablet 1 tablet [...] P enicillins, Aldactone. Objective: * Vitals: W t: 108.8, Temp: 98.2, BP: 140/70, HR: 56, Nurse: DEMARIO, Ht: 63, BMI:19.27. * Examination: P sychology: General Appearance: N AD. G rooming : a dequate.?Eye contact : arnaud dickey. M ood : paul carson. Assessment: * Assessment: 1. A norexia nervosa - F50.00 (Primary) 2 . H istory of colon polyps - Z86.0100 3 . C olon cancer screening - Z12.11 4 . E nd stage renal disease - N18.6 5 . D ependence on renal dialysis - Z99.2 6 . Hypertensive heart and chronic kidney disease with heart failure and with stage 5 chronic kidney disease, or end stage renal disease - I13.2 7 . C hronic kidney disease, stage 5 - N18.5 8 . B christiano mass index (BMI) of 19.0 to 19.9 in adult - Z68.1 ? Plan: * Treatment: 2. H istory of colon polyps Referral To:CARLENE CARRINGTON Gastro[facility] Reason: 3. C olon cancer screening Referral To:CARLENE CARRINGTON [facility] Reason: 4. E nd stage renal disease Referral To:CARLENE CARRINGTON [facility] Reason: 5. D ependence on renal dialysis Referral To:CARLENE CARRINGTON [facility]astroenter[facility] Reason: 6. O thers Notes: Lab results from recent blood draw at dialysis center reviewed in office today, see notes.? * Procedure Codes: G 2211 Complex e/m visit add on, 1036F TOBACCO NON-USER * Follow Up: 1 Year * Images: Billing Information: * Visit Code: 41691 Office Visit, Est Pt., Level 4. * Procedure Codes: G2211 Complex e/m visit add on. 1036F TOBACCO NON-USER. * Electronic signature of Enedina Reese MD on 11/23/2024 at 05:31 PM EDT Sign off status: Pending * Provider: Lorenzo Reese M.D. Date: 0 10/22/2024 Generated for Bar ruffin/Nic/Marthasmitting on: 1 05:31 PM EDT History and Physical Notes * HPI (History of Present Illness) Category Sub-Category Detail Notes Category Not es HPI Here for follow up on: lab work. Pt states she is here for a check up and fasting lab work. Pt states she is doing good and denies any concerns today Examination Category Sub-Category Detail Notes Category Not es Psychology General Appearance: NAD Grooming : adequate Eye contact : normal Mood : pleasant Consultation Request Notes Referral Date Referring Provider Referred Provider Not es 10/22/2024 Marcelo Reese EARL
[2024-11-23 17:10] VITALS: BP 101/69; PULSE 75; RESP 16; TEMP 36.6; O2SAT 94; BMI 18.6
--- NOTE | 2024-11-23 17:16 | ED_ITS ---
<Statement entered by Nadir Davison DO - 11/24/24 03:02> I was consulted by the [facility], and we discussed the complexity of problems being addressed. I approved the treatment and management plan for this patient's care in the emergency department, thus performing a substantive portion of the medical decision making. I independently evaluated this patient as well. Patient reportedly had an endoscopy with gastroenterology today. During the procedure she did have some vomiting and possible aspiration. They kept her on oxygen for period of time after the procedure and were unable to wean her to room air. By the time of her arrival to the emergency department she was actually weaned to room air and was resting comfortably on room air. She remained saturating well on room air throughout the duration of her stay. We were able to review a chest x-ray that was taken at in the post endoscopy suite. This showed no lobar consolidation or pleural effusion. The patient was able to ambulate here in the emergency department and did not have any evidence of ambulatory oxygen desaturation. On auscultation of her chest she had no wheezes, rales, rhonchi, or crackles. Given that she was so well-appearing and was resting comfortably on room air and was ambulatory without difficulty I did not feel that she necessitated further workup. Additionally, she does not have any lobar consolidations on chest x-ray and if she does develop aspiration pneumonitis there is currently no recommended antibiotic regimen for this. Therefore antibiotics are not indicated and she is stable for discharge. Nadir Davison DO Discharge Plan Disposition Patient Disposition: Home, Self-Care Condition: Good Prescriptions Prescriptions: No Action potassium chloride 20 MEQ tablet 20 meq PO TID carvedilol 6.25 mg Tablet 6.25 mg PO BID Rx Instructions: must administer with a meal/food Xphozah 30 mg Tablet 30 mg PO BID Rx Instructions: administer immediately before first and last meals of day calcitriol 0.5 mcg Capsule 0.5 mcg PO DAILY Referrals Follow up/Referrals: Provider,Referral, MD [Primary Care Provider, Medical] - See instructions Activity Restrictions/Add. Instructions Additional Instructions/Restrictions: You were evaluated on an emergency basis. It is very important that you follow- up with your primary care provider and any specialist who we discussed within the next 2 days in order to better assess your health more comprehensively. For example, incidental findings on imaging or laboratory results that were performed today may be discovered, which do not require immediate medical care, but may impact your health in the future. If your symptoms worsen or persist, please return to the emergency department immediately for reassessment. Take all medications as prescribed. In queue for allowing me to participate in your health care, and I hope you feel better soon. Clinical Impressions Clinical Impression: Aspiration into airway Qualifiers: Encounter type: initial encounter Qualified Code(s): T17.908A - Unspecified foreign body in respiratory tract, part unspecified causing other injury, initial encounter Print Language Print Language: Nauruan Discharge ED Provider: Nadir Davison General Adult HPI General Chief complaint: Shortness of Breath/Dyspnea Stated complaint: SOA Time Seen by Provider: 11/23/24 17:18 History of Present Illness HPI narrative: 54-year-old female presents emergency department from OR after vomiting during a routine colonoscopy. OR staff attempted to have patient admitted to this facility for treatment of aspiration pneumonia however due to her dialysis requirement the hospitalist would not accept patient. Patient does not wear oxygen at baseline. She reports that she was told that she threw up during the procedure. OR staff was concerned that they were not able to wean patient off of supplemental oxygen however upon arrival to the emergency department she is currently 95% on room air. She denies chest pain or shortness of breath at this time Related Data Home Medications ?Medication ?Instructions ?Recorded ?Confirmed potassium chloride 20 mEq 20 meq PO TID Supplement 11/16/24 tablet,extended release(part/cryst) calcitriol 0.5 mcg capsule 0.5 mcg PO DAILY Supplement 11/01/21 11/16/24 carvedilol 6.25 mg tablet 6.25 mg PO BID 11/16/2410/03 tenapanor 30 mg tablet (Xphozah) 30 mg PO BID 11/16/24 11/16/24 Allergies Allergy/AdvReac Type Severity Reaction Status Date / Time Penicillins Allergy Intermediate Rash Verified 11/23/24 13:40 [facility] Disclaimer: The information contained in this section may have been updated after the patient was seen, as this information can be updated by other users. Medical History (Updated 11/23/24 @ 18:16 by Nadir Davison DO) Hemodialysis patient Anorexia Peritoneal dialysis catheter in place History of peritoneal dialysis History of renal failure Surgical History History of colonoscopy History of cholecystectomy Family History Other Colon cancer Family history of cancer Social History Smoking Status: Unknown if ever smoked alcohol intake: never substance use type: denies use current occupational status: employed Travel in the last 8 weeks?: None housing: house caffeine: Yes Have you lived/traveled outside US in past 30 days?: No Contact w/someone who lives/traveled outside US past 30 days?: No Exposure to someone with infectious disease in past 14 days?: No Do you have a fever (greater than 100.4 F or 38 C)?: No Have you tested positive for COVID-19?: No Exposed to someone with COVID-19 in past 14 days?: No Do you have a sore throat?: No Do you have a cough?: No Do you have any weakness?: No Do you have any diarrhea?: No Are you experiencing any unusual bleeding?: No Do you have any muscle aches/pain?: No Do you have any abdominal pain?: No Are you experiencing loss of taste or smell?: No Other Medical History Have you received the Flu Vaccine for this season: Yes Have you received the Pneumonia Vaccine: Yes ROS Obtained: Yes other Respiratory Respiratory: Reports other (Reported hypoxia) Physical Exam Narrative Physical exam: General: Awake, aware, in no acute distress HEENT: Normocephalic, no evidence of trauma CV: RRR, no murmurs, rubs, or gallops Pulm: CTA bilaterally with no rhonchi, rales, wheezes ABD: Nontender, no swelling, guarding, or rebound tenderness Psych, appropriate mood and affect General General appearance: alert Respiratory Respiratory exam: Present normal lung sounds bilaterally Cardiovascular Cardiovascular exam: Present regular rate Neurological Exam Neurological exam: Present alert Medical Decision Making Medical Records Screening: Per USPSTF and CDC recommendations, given the prevalence of disease in our region, it is our hospital?s policy to screen for HIV and viral Hepatitis for all patients aged 18 and over and those with ongoing risk factors. Regino Inquiry Pt receiving controlled substance: No Vital Signs: 11/23/24 17:10 11/23/24 17:31 11/23/24 17:33 Temperature 98 F Temperature Source Oral Pulse Rate 73 Pulse Rate [Right Brachial] 75 Respiratory Rate 16 Blood Pressure 156/76 H Blood Pressure [Right Arm] 101/69 L Blood Pressure Mean 90 Blood Pressure Mean [Right Arm] 79 Blood Pressure Position [Right Arm] Supine 02 Sat by Pulse Oximetry 94 L 96 95 Oxygen Delivery Method Room Air Room Air 11/23/24 18:00 Temperature Temperature Source Pulse Rate 71 Pulse Rate [Right Brachial] Respiratory Rate Blood Pressure 162/83 H Blood Pressure [Right Arm] Blood Pressure Mean 109 Blood Pressure Mean [Right Arm] Blood Pressure Position [Right Arm] 02 Sat by Pulse Oximetry 96 Oxygen Delivery Method Medical Decision Narrative: Initial impression of presenting illness: 54-year-old female presents to the emergency department from our OR after vomiting during a routine colonoscopy. Our staff states that patient vomited and was requiring supplemental oxygen that they were unable to wean to discharge her home. They report that they attempted to admit patient to this facility however because she gets dialysis on Tuesdays and Saturdays the hospitals would not agree to admit her to this facility. Patient arrives to the emergency department on room air at 95%. She denies chest pain or shortness of breath. She reports that she was last dialyzed on Thursday and was able to complete the full session without difficulty. Differential diagnosis includes but is not limited to: Aspiration pneumonia, hypoxia related to recent procedural sedation Patient arrives hemodynamically stable, afebrile, without respiratory distress with vital signs interpreted by myself. Initial physical exam unremarkable Initial diagnostic plan: Patient had a chest x-ray at approximately 4 PM this afternoon while she was in OR recovery. Radiology reports this is an unremarkable chest x-ray. Will obtain a walking oxygen saturation on patient. Results from initial plan were reviewed and interpreted by myself, pertinent positives include: Patients walking SpO2 was 93%. She was able to ambulate without difficulty and with a steady gait. Patient remains on room air and adequate reevaluation her oxygen saturation is 96%. She continues to deny chest pain or shortness of breath. Disposition: Advised patient that we will discharge home. Recommended that she continue with all of her previously prescribed home medications. Instructed her to remember that she recently had a procedural sedation procedure so that she is not to operate heavy machinery for the next 24 hours. Instructed her to return to the emergency department if she develops shortness of breath, chest pains, fevers otherwise recommend she follow-up with her primary care provider. Patient was agreeable to plan of care. Patient made aware of findings and had a detailed discussion with symptomatic care and return precautions, patient voiced understanding. Critical Care Critical Care Time Critical Care Time: No
--- OUTSIDE RECORDS SUMMARY | 2024-11-23 17:29 | XMS_ITS | Encounter Summary ---
Author Organization Healthcare Address [address] [place] [address] Care Team Providers Care Time Recorder Name Role Phone Marcelo Reese MD Primary Care Provider [phone] Encounter Details Date Type Department Care Team (Late st Contact Info) Description 11/09/2019 [facility] Encounter Historical OTTR [address] [place] [address] Jumana Ku, RN [facility]MINISTRATION Social History [...] on filedocumented in this encounter Care Teams Time Recorder Relationship Specialty Start Date End Date Marcelo Reese MD [address] [place] [address] PCP - General 06/22/20 documented as of this encounter
--- OUTSIDE RECORDS SUMMARY | 2024-11-23 17:29 | XMS_ITS | Encounter Summary ---
Author Organization Healthcare Address [address] [place] [address] Care Team Providers Care Marine Electrician Apprentice Name Role Phone Marcelo Reese MD Primary Care Provider [phone] Encounter Details Date Type Department Care Team (Late st Contact Info) Description 03/23/2019 [facility] Encounter Historical OTTR [address] [place] [address] Jumana Ku, RN [facility]MINISTRATION Social History [...] on filedocumented in this encounter Care Teams Marine Electrician Apprentice Relationship Specialty Start Date End Date Marcelo Reese MD [address] [place] [address] PCP - General 06/22/20 documented as of this encounter
--- OUTSIDE RECORDS SUMMARY | 2024-11-23 17:29 | XMS_ITS | Encounter Summary ---
Author Organization Healthcare Address [address] [place] [address] Care Team Providers Care Foster Care Therapist Name Role Phone Marcelo Reese MD Primary Care Provider Encounter Details Date Type Department Care Team (Late st Contact Info) Description 06/06/2020 [facility] Encounter Historical OTTR [address] [place] [address] Provider, [place] [id number] Social History Tobacco Use Types Packs/Day Years [...] on filedocumented in this encounter Care Teams Foster Care Therapist Relationship Specialty Start Date End Date Marcelo Reese MD [address] [place] [address] PCP - General 06/22/20 documented as of this encounter
--- OUTSIDE RECORDS SUMMARY | 2024-11-23 17:29 | XMS_ITS | Encounter Summary ---
Author Organization [facility] Address [address] [place] [address] Care Team Providers Care Char Dust Cleaner And Salvager Name Role Phone Marcelo Reese MD Primary Care Provider + [phone] Source Comments This information has been disclosed [...] release of HIV test results or diagnoses. [id number] Health Encounter Details Date Type Department Care Team (Late st Contact Info) Description 09/27/2024 Chart Note [facility] Kidney Transplant at [address] [address] Bia Vieira RN OK to reactivate patient on kidney [facility]. Updated PTH level received and Social History Tobacco Use Types Packs/Day Years Used Date Smoking Tobacco: Former Cigarettes 2009 Smokeless Tobacco: Never Alcohol Use Standard [...] Progress Notes * Bia Vieira RN - 09/27/2024 5:06 PM EDT OK to reactivate patient on kidney WL. Updated PTH level received and reviewed. PTH levels <1000. Cosigned by Mariah Breaux CNP at 09/28/2024 8:01 AM EDT Associated attestation - Mariah Breaux CNP - 09/28/2024 8:01 AM EDT Agree with reactivation of patient on kidney wait list. Mariah Breaux CNP documented in this encounter Plan of Treatment Not on file documented as of this encounter Visit Diagnoses Not on filedocumented in this encounter Care Teams Char Dust Cleaner And Salvager Relationship Specialty Start Date End Date Marcelo Reese MD [address] [place] [address] PCP - General Family Medicine 03/09/23 documented as of this encounter
--- OUTSIDE RECORDS SUMMARY | 2024-11-23 17:29 | XMS_ITS | Encounter Summary ---
Author Organization Healthcare Address [address] [place] [address] Care Team Providers Care Meter/Relay Technician Name Role Phone Marcelo Reese MD Primary Care Provider [phone] Encounter Details Date Type Department Care Team (Late st Contact Info) Description 05/15/2020 [facility] Encounter Historical OTTR [address] [place] [address] Jumana Ku RN [facility] ADMINISTRATION Social History Tobacco Use [...] on filedocumented in this encounter Care Teams Meter/Relay Technician Relationship Specialty Start Date End Date Marcelo Reese MD [address] [place] [address] PCP - General 06/22/20 documented as of this encounter
--- OUTSIDE RECORDS SUMMARY | 2024-11-23 17:29 | XMS_ITS | Encounter Summary ---
Author Organization Healthcare Address [address] [place] [id number] Care Team Providers Care Computer Hardware Developer Name Role Phone Marcelo Reese MD Primary Care Provider [phone] Encounter Details Date Type Department Care Team (Late st Contact Info) Description 04/26/2020 [facility] Encounter Historical OTTR [address] [place] [address] Nusrat Butler RN [facility]ATION [address] [place] [address] Social History Tobacco Use Types Packs/Day Years [...] on filedocumented in this encounter Care Teams Computer Hardware Developer Relationship Specialty Start Date End Date Marcelo Reese MD [address] [place] [address] PCP - General 06/22/20 documented as of this encounter
--- OUTSIDE RECORDS SUMMARY | 2024-11-23 17:29 | XMS_ITS | Encounter Summary ---
Author Organization Healthcare Address [address] [place] [address] Care Team Providers Care Health Care Facilities Inspector Name Role Phone Marcelo Reese MD Primary Care Provider [phone] Encounter Details Date Type Department Care Team (Late st Contact Info) Description 04/02/2020 [facility] Encounter Historical OTTR [address] [place] [address] Jumana Ku RN [facility]PL[employer] ADMINISTRATION Social History [...] to locate the vaccine. She spoke with [facility] department who told her it would be [...] on filedocumented in this encounter Care Teams Health Care Facilities Inspector Relationship Specialty Start Date End Date Marcelo Reese MD [address] [place] [address] PCP - General 06/22/20 documented as of this encounter
--- OUTSIDE RECORDS SUMMARY | 2024-11-23 17:29 | XMS_ITS | Encounter Summary ---
Author Organization Healthcare Address [address] [place] [id number] Care Team Providers Care Obstetrical Tech Name Role Phone Marcelo Reese MD Primary Care Provider + [phone] Encounter Details Date Type Department Care Team (Late st Contact Info) Description 10/26/2019 [facility] Encounter Historical OTTR [address] [place] [address] Emily Livingston, RN [facility] [id number] [address] [place] [id number] Social History Tobacco Use Types Packs/Day Years [...] on filedocumented in this encounter Care Teams Obstetrical Tech Relationship Specialty Start Date End Date Marcelo Reese MD [address] [place] [address] PCP - General 06/22/20 documented as of this encounter
--- OUTSIDE RECORDS SUMMARY | 2024-11-23 17:29 | XMS_ITS | Encounter Summary ---
Author Organization Healthcare Address [address] [place] [address] Care Team Providers Care Technical Testing Engineer Name Role Phone Marcelo Reese MD Primary Care Provider + [phone] Encounter Details Date Type Department Care Team (Late st Contact Info) Description 02/22/2020 [facility] Encounter Historical OTTR [address] [place] [address] Hamida Delaney [place] [phone] Social History Tobacco Use Types Packs/Day Years [...] on filedocumented in this encounter Care Teams Technical Testing Engineer Relationship Specialty Start Date End Date Marcelo Reese MD [address] [place] [address] PCP - General 06/22/20 documented as of this encounter
--- OUTSIDE RECORDS SUMMARY | 2024-11-23 17:29 | XMS_ITS | Encounter Summary ---
Author Organization Healthcare Address [address] [place] [address] Care Team Providers Care Basket Operator Name Role Phone Marcelo Reese MD Primary Care Provider + [phone] Encounter Details Date Type Department Care Team (Late st Contact Info) Description 07/01/2019 [facility] Encounter Historical OTTR [address] [place] [address] [place] [address] Social History Tobacco Use Types Packs/Day Years Used Date Smoking Tobacco: Never Assessed Comments Unknown Sex and Gender Information Value Date Recorded Sex Assigned at Not on file Legal Sex Female 8:06 PM EDT Gender Identity Not on file Sexual Orientation Not on file documented as of this encounter Miscellaneous Notes * Progress Notes - Hamida Delaney W - 07/01/2019 12:[address] [...] on filedocumented in this encounter Care Teams Basket Operator Relationship Specialty Start Date End Date Marcelo Reese MD [address] [place] [address] PCP - General 06/22/20 documented as of this encounter
--- OUTSIDE RECORDS SUMMARY | 2024-11-23 17:29 | XMS_ITS | Encounter Summary ---
Author Organization Healthcare Address [address] [place] [address] Care Team Providers Care Division Human Resources Manager Name Role Phone Marcelo Reese MD Primary Care Provider [phone] Encounter Details Date Type Department Care Team (Late st Contact Info) Description 02/09/2020 [facility] Encounter Historical OTTR [address] [place] [address] Jumana Ku RN [facility]TR[employer]PL[employer] ADMINISTRATION Social History [...] on filedocumented in this encounter Care Teams Division Human Resources Manager Relationship Specialty Start Date End Date Marcelo Reese MD [address] [place] [address] PCP - General 06/22/20 documented as of this encounter
--- OUTSIDE RECORDS SUMMARY | 2024-11-23 17:29 | XMS_ITS | Encounter Summary ---
Author Organization [facility] Address [address] [place] [address] Care Team Providers Care Clamp Jig Assembler Name Role Phone Marcelo Reese MD Primary Care Provider Encounter Details Date Type Department Care Team (Late st Contact Info) Description 05/15/2020 [facility] Encounter Historical OTTR [address] [place] [address] [place] [address] Social History Tobacco Use Types Packs/Day Years [...] on filedocumented in this encounter Care Teams Clamp Jig Assembler Relationship Specialty Start Date End Date Marcelo Reese MD [address] [place] [address] PCP - General 06/22/20 documented as of this encounter
--- OUTSIDE RECORDS SUMMARY | 2024-11-23 17:29 | XMS_ITS | Encounter Summary ---
Author Organization Healthcare Address [address] [place] [address] Care Team Providers Care Computer Systems Designer Name Role Phone Marcelo Reese MD Primary Care Provider Encounter Details Date Type Department Care Team (Late st Contact Info) Description 06/17/2019 [facility] Encounter Historical OTTR [address] [place] [address] [place] [address] Social History Tobacco Use Types Packs/Day Years [...] filedocumented in this encounter Care Teams Computer Systems Designer Relationship Specialty Start Date End Date Marcelo Reese MD [address] [place] [address] PCP - General 06/22/20 documented as of this encounter
--- OUTSIDE RECORDS SUMMARY | 2024-11-23 17:29 | XMS_ITS | Encounter Summary ---
Author Organization [facility] Address [address] [place] [address] Care Team Providers Care Healthcare Business Analyst Name Role Phone Marcelo Reese MD Primary Care Provider + [phone] Source Comments This information has been disclosed [...] release of HIV test results or diagnoses. [id number] Health Encounter Details Date Type Department Care Team (Late st Contact Info) Description 09/27/2024 Telephone [facility] Kidney Transplant at [address] [address] Bia Vieira RN Social History Tobacco Use Types Packs/Day Years [...] Notes * Bia Vieira RN - 09/27/2024 4:49 PM EDT Patient reviewed by multidisciplinary team and approved to be reactivated on the kidney waiting list. Updated PTH levels received and reviewed by transplant provider. PTH level 746 as of 07/21/2024. Spoke to patient about Monthly PRAs sent to dialysis unit- verified dialysis unit address with patient. Willingness to accept Hep B or Hep C organs- educated patient on Hep B vaccine. Pre and post screening. Medications used to treat Hep B and Hep C. Pt has declined Hep B CORE, Hep B YENY. Willing to accept Hep C. Hepatitis B Vaccination status: [] Hepatitis B surface antibody positive (immunized) [] Vaccinated per medical record [] Instructed to be vaccinated - Insufficient time [x] Declined/patient objection. [] Medical/allergy contraindication [] Other To communicate to transplant center if there is a change in demographics, insurance, health, dialysis center, or has started dialysis Any living donors? Not at this time Explain to pt that we will contact patient around a month prior to when their next annual testing is due - February 2025 Items completed Spectra path activated: done Letter sent to pt and provider: done [place] tab updated: done UNet updated: done Review date updated: done documented in this encounter Plan of Treatment Not on file documented as of this encounter Visit Diagnoses Not on filedocumented in this encounter Care Teams Healthcare Business Analyst Relationship Specialty Start Date End Date Marcelo Reese MD [address] [place] [address] PCP - General Family Medicine 03/09/23 documented as of this encounter
--- OUTSIDE RECORDS SUMMARY | 2024-11-23 17:29 | XMS_ITS | Encounter Summary ---
Author Organization Healthcare Address [address] [place] [address] Care Team Providers Care Carpet Jack Name Role Phone Marcelo Reese MD Primary Care Provider [phone] Encounter Details Date Type Department Care Team (Late st Contact Info) Description 11/17/2019 [facility] Encounter Historical OTTR [address] [place] [address] Jumana Ku RN [facility]-TRANSPLANT ADMINISTRATION Social History [...] for items mentioned. Jumana: This is Nat Holden - Birthday 1970. I am a transplant list patient at and I am emailing to let you know of some updates for my records: Mammogram completed on 11/14- Negative - nothing further needed Flu Shot received November 11 Hepatitis B shot ??? round 1 - received November 11 Nat Holden documented in this encounter Plan of Treatment Not on file documented as of this encounter Visit Diagnoses Not on filedocumented in this encounter Care Teams Carpet Jack Relationship Specialty Start Date End Date Marcelo Reese MD [address] [place] [facility] [address] [place] [id number] PCP - General 06/22/20 documented as of this encounter
--- OUTSIDE RECORDS SUMMARY | 2024-11-23 17:29 | XMS_ITS | Encounter Summary ---
Author Organization Healthcare Address [address] [place] [address] Care Team Providers Care Shot Peening Operator Name Role Phone Marcelo Reese MD Primary Care Provider [phone] Encounter Details Date Type Department Care Team (Late st Contact Info) Description 03/15/2020 [facility] OT[facility] Encounter Historical OTTR [address] [place] [address] Jumana Ku RN CH-TRANSPLANT ADMINISTRATION Social History [...] on filedocumented in this encounter Care Teams Shot Peening Operator Relationship Specialty Start Date End Date Marcelo Reese MD [address] [place] [address] PCP - General 06/22/20 documented as of this encounter
--- OUTSIDE RECORDS SUMMARY | 2024-11-23 17:29 | XMS_ITS | Encounter Summary ---
Author Organization [facility] Address [address] [place] [address] Care Team Providers Care Paper Testing Supervisor Name Role Phone Marcelo Reese MD Primary Care Provider + [phone] Source Comments This information has been disclosed [...] release of HIV test results or diagnoses. [id number] Reason for Visit * Reason Comments Appointment Encounter Details Date Type Department Care Team (Late st Contact Info) Description 09/30/2024 Telephone [facility] Kidney Transplant at [address] [address] Ely Carrasco MA Appointment Social History Tobacco Use Types Packs/Day Years [...] encounter Miscellaneous Notes * Telephone Encounter - Ely Carrasco MA - 09/30/2024 10:45 AM EDT Patient is scheduled on 10/18 with . Left detailed VM, Letter/ChirpVisionhart message sent. documented in this encounter Plan of Treatment Not on file documented as of this encounter Visit Diagnoses Not on filedocumented in this encounter Care Teams Paper Testing Supervisor Relationship Specialty Start Date End Date Marcelo Reese MD [address] [place] [address] PCP - General Family Medicine 03/09/23 documented as of this encounter
--- OUTSIDE RECORDS SUMMARY | 2024-11-23 17:29 | XMS_ITS | Encounter Summary ---
Author Organization Healthcare Address [address] [place] [address] Care Team Providers Care Boat Pilot Name Role Phone Marcelo Reese MD Primary Care Provider [phone] Encounter Details Date Type Department Care Team (Late st Contact Info) Description 12/12/2019 [facility] Encounter Historical OTTR [address] [place] [address] [place] [address] Social History Tobacco Use Types Packs/Day Years [...] on filedocumented in this encounter Care Teams Boat Pilot Relationship Specialty Start Date End Date Marcelo Reese MD [address] [place] [address] PCP - General 06/22/20 documented as of this encounter
--- OUTSIDE RECORDS SUMMARY | 2024-11-23 17:29 | XMS_ITS | Encounter Summary ---
Author Organization Healthcare Address [address] [place] [address] Care Team Providers Care Penology Teacher Name Role Phone Marcelo Reese MD Primary Care Provider [phone] Encounter Details Date Type Department Care Team (Late st Contact Info) Description 05/17/2019 [facility] OT[facility] Encounter Historical OTTR [address] [place] [address] Jumana Ku, RN CH-TRANSPLANT ADMINISTRATION Social History [...] on filedocumented in this encounter Care Teams Penology Teacher Relationship Specialty Start Date End Date Marcelo Reese MD [address] [place] [address] PCP - General 06/22/20 documented as of this encounter
--- OUTSIDE RECORDS SUMMARY | 2024-11-23 17:29 | XMS_ITS | Encounter Summary ---
Author Organization Healthcare Address [address] [place] [address] Care Team Providers Care Dielectric Testing Machine Operator Name Role Phone Marcelo Reese MD Primary Care Provider + [phone] Encounter Details Date Type Department Care Team (Late st Contact Info) Description 08/08/2019 [facility] OT[facility] Encounter Historical OTTR [address] [place] [address] [address] [place] [id number] Social History Tobacco Use Types Packs/Day Years [...] on filedocumented in this encounter Care Teams Dielectric Testing Machine Operator Relationship Specialty Start Date End Date Marcelo Reese MD [address] [place] [address] PCP - General 06/22/20 documented as of this encounter
--- OUTSIDE RECORDS SUMMARY | 2024-11-23 17:29 | XMS_ITS | Encounter Summary ---
Author Organization Healthcare Address [address] [place] [id number] Care Team Providers Care Car Changer Name Role Phone Marcelo Reese MD Primary Care Provider + [phone] Encounter Details Date Type Department Care Team (Late st Contact Info) Description 03/10/2019 [facility] OT[facility] Encounter Historical OTTR [address] [place] [address] [place] [address] Social History Tobacco Use Types Packs/Day Years [...] Thanks for your help! Alexy Michelle MD Administrative And Program Specialist Drainage Design Coordinator, Nephrology Fellowship Nephrology, Bone and Mineral Metabolism [facility] documented in this encounter Plan of Treatment Not on file documented as of this encounter Visit Diagnoses Not on filedocumented in this encounter Care Teams Car Changer Relationship Specialty Start Date End Date Marcelo Reese MD [address] [facility] [address] [place] [id number] PCP - General 06/22/20 documented as of this encounter
--- OUTSIDE RECORDS SUMMARY | 2024-11-23 17:29 | XMS_ITS | Encounter Summary ---
Author Organization Healthcare Address [address] [place] [address] Care Team Providers Care Needle Grinder Name Role Phone Marcelo Reese MD Primary Care Provider + [phone] Encounter Details Date Type Department Care Team (Late st Contact Info) Description 05/14/2020 [facility] OT[facility] Encounter Historical OTTR [address] [place] [address] Jumana Ku RN CH-TRANSPLANT ADMINISTRATION Social History [...] PRA supplies to pts home: [place] [address] documented in this encounter Plan of Treatment Not on file documented as of this encounter Visit Diagnoses Not on filedocumented in this encounter Care Teams Needle Grinder Relationship Specialty Start Date End Date Marcelo Reese MD [address] [facility] [address] [place] [address] PCP - General 06/22/20 documented as of this encounter
--- OUTSIDE RECORDS SUMMARY | 2024-11-23 17:29 | XMS_ITS | Encounter Summary ---
Author Organization [facility] Address [address] [place] [id number] Care Team Providers Care Steam Finisher Name Role Phone Marcelo Reese MD Primary Care Provider + [phone] Encounter Details Date Type Department Care Team (Late st Contact Info) Description 10/26/2019 [facility] Committee Historical OTTR [address] [place] [address] Emily Livingston, RN [facility] [id number] [address] [place] [id number] Social History Tobacco Use Types Packs/Day Years [...] to include cardiacand also met with transplant Forest Engineer. She has a history of anorexia and [...] walks on a daily basis. Works in [employer]. Denies any tobacco, alcohol, recreational drug use; [...] on filedocumented in this encounter Care Teams Steam Finisher Relationship Specialty Start Date End Date Marcelo Reese MD [address] [place] [address] PCP - General 06/22/20 documented as of this encounter
--- OUTSIDE RECORDS SUMMARY | 2024-11-23 17:29 | XMS_ITS | Encounter Summary ---
Author Organization Healthcare Address [address] [place] [address] Care Team Providers Care Sociocultural Anthropology Professor Name Role Phone Marcelo Reese MD Primary Care Provider + [phone] Encounter Details Date Type Department Care Team (Late st Contact Info) Description 04/19/2019 [facility] Encounter Historical OTTR [address] [place] [address] [place] [address] Social History Tobacco Use Types Packs/Day Years [...] on filedocumented in this encounter Care Teams Sociocultural Anthropology Professor Relationship Specialty Start Date End Date Marcelo Reese MD [address] [place] [address] PCP - General 06/22/20 documented as of this encounter
--- OUTSIDE RECORDS SUMMARY | 2024-11-23 17:29 | XMS_ITS | Encounter Summary ---
Author Organization Healthcare Address [address] [place] [address] Care Team Providers Care Single Stayer Operator Name Role Phone Marcelo Reese MD Primary Care Provider + [phone] Encounter Details Date Type Department Care Team (Late st Contact Info) Description 08/08/2019 [facility] OT[facility] Encounter Historical OTTR [address] [place] [address] [place] [address] Social History Tobacco Use Types Packs/Day Years [...] r/s'd to 10/19. Updated APM, SCM, OTTR, [place], and [address] calendar. Called and spoke w/ pt. Gave her updated 10/19 annual appt details and she verbalized understanding of all. Mailed 10/19 annual eval appt schedule w/ maps, instructions, and annual questionnaire to pt. documented in this encounter Plan of Treatment Not on file documented as of this encounter Visit Diagnoses Not on filedocumented in this encounter Care Teams Single Stayer Operator Relationship Specialty Start Date End Date Marcelo Reese MD [address] [facility] [address] [place] [address] PCP - General 06/22/20 documented as of this encounter
--- OUTSIDE RECORDS SUMMARY | 2024-11-23 17:29 | XMS_ITS | Encounter Summary ---
Author Organization Healthcare Address [address] [place] [address] Care Team Providers Care Rigging Foreman Name Role Phone Marcelo Reese MD Primary Care Provider [phone] Encounter Details Date Type Department Care Team (Late st Contact Info) Description 07/24/2020 Lab Requisition [facility] [address] [place] [address] Manuel Menon MD [address] [place] [address] Awaiting organ transplant status Social History Tobacco [...] MD LAB BLOOD ORDERABLES Final Res ult [facility] [address] documented in this encounter Visit Diagnoses Diagnosis Awaiting organ transplant status documented in this encounter Care Teams Rigging Foreman Relationship Specialty Start Date End Date Marcelo Reese MD [address] [place] [address] PCP - General 06/22/20 documented as of this encounter
--- OUTSIDE RECORDS SUMMARY | 2024-11-23 17:29 | XMS_ITS | Encounter Summary ---
Author Organization [facility] Address [address] [place] [id number] Care Team Providers Care Sandwich Hand Name Role Phone Marcelo Reese MD Primary Care Provider + [phone] Source Comments This information has been disclosed [...] release of HIV test results or diagnoses. [id number] Health Encounter Details Date Type Department Care Team (Late st Contact Info) Description 09/30/2024 Social Work [facility] Kidney Transplant at [address] [id number] Radha Lyon MSW Social History Tobacco Use Types Packs/Day Years [...] as of this encounter Progress Notes * Radha Lyon, GREENHOUSE MANAGER - 09/30/2024 9:57 AM EDT Solid Organ Transplant Psychosocial Assessment Kidney - WAITLIST UPDATE REFERRAL DATA Referral Source: Transplant Team Referral Reason: Psychosocial Assessment for Wait List Management EMERGENCY CONTACT INFORMATION Emergency Contacts: Tomasz Hurtado () PATIENT INFORMATION Preferred name: Nat Marital Status: Patient and spouse got in October 1997. Children: None Grandchildren: None Parents: Patient was raised by her parents, Palomo and Chelle Hatch, in [place] Patient's parents are living, patient's father started dialysis in 2023. Siblings: 1, Experience: No Education Level: Advanced Degree SHARONA History of Learning Disabilities: No HEALTH LITERACY Rapid Estimate of Adult Literacy in Medicine (REALM-SF) Score Grade Range in BOLD below: 0 Third grade and below; will not be able to read most low-literacy materials; will need repeated oral instructions, materials composed primarily of illustrations, or audio or video tapes 1-3 Fourth to sixth grade; will need low-literacy materials, may not be able to read prescription labels 4-6 Seventh to eighth grade; will struggle with most patient education materials; will not be offended by low-literacy materials 7 High school; will be able to read most patient education materials LEISURE Hobbies: Previously enjoyed riding motorcycle but no longer can. Reports she currently enjoys baking, cooking, gardening, spending time with her dog. Membership to social/community clubs/organizations: Yes Pt is active in her adult sorority group and participates in volunteer activities, she is also involved in events at her mosque CULTURAL/SPIRITUAL Primary language: Portuguese Anodic Treater: No Cultural /spiritual practices to take into consideration during transplant process: No Mandaen: Cheondoism CLINICAL INFORMATION Patient's perception of medical condition: Patient is unsure what caused her kidney failure. Patient started dialysis in 2020. Patient reports that her father started dialysis in 2023, unsure of what caused his kidney failure but he has an autoimmune disorder that affects his liver as well. Patient reports that they recentlylearned that a paternal great grandmother had a kidney removed in the past but unsure reason. Patient is unsure if there is a genetic or hereditary disorder contributing to kidney disease. Patient's reported motivation for transplant as treatment option: Patient states that her motivation for transplant is To not need dialysis, have more freedom . Transplant History: Patient is active at [facility]. Patient is in evaluation at . Patient plans to multi-list. Per previous assessment: Pt was on the wait list at , and was brought in for DDKT 12/31, but surgery was cancelled due to 40lb weight loss and electrolyte imbalance with BMI of 15, which, due to pt's h/o eating disorders, was concerning for purging behavior. She was removed from wait list in 06/01. Pt reports and chart review indicates that significant weight loss was attributed to complications from PD. She has since changed modalities to [facility], and reports today that symptoms have improved. MENTAL HEALTH Past or current treatment for mental health diagnosis: Yes Patient reports no changes in mental health over the past year. Patient is currently meeting with mental health provider at [facility] every other month, reports thatfrequency of visits can be increased if symptoms increase. Patient was evaluated by transplant psychologist on 07/28/23 and deemed an acceptable candidate withthe following recommendations: - Psychological health/ Eating Disorder history. PERLA began struggling with disordered eating during her college years (both anorexia and bulimia). 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 She describes herself as a perfectionist and eager to fit in at that time, and her relationship with food and weight became unhealthy. PERLA sought treatment and in 2004 she participated in inpatient eating disorders treatment at [facility] in [place]. PERLA was encouraged to continue outpatient ED treatment from there. PERLA reports that she has not restricted intake or intentionally lost weight or binged/purged in well over 5 years (could not recall exact timing). The transplant team's concern with weight loss noted above was possibly related to this history. PERLA is adamant that weight loss that occurred while on PD was not related to her eating disorder history, but solely the result of her body's reaction to PD. PERLA is no longer regularly seeing her long-term therapist, but reports that she can re-establish care with her as needed. She is seeing a psychiatrist, Jamila Boyce, with [facility] periodically, at the request of's transplant team. PERLA is prescribed Prozac, with benefit. Denied current symptoms of depression and anxiety. Denied a history of suicidal ideation or suicide attempts. PERLA denied additional mental h ealth diagnoses. Given psychiatric history and the stress associated with the transplant process, recommend PERLA re-establishes regular follow-up with her long- term therapist to assist with coping and symptom management and ensure on-going psychiatric stability through this process. She verbalized understanding and agreed to do so. Also recommend continued close monitoring of weight through wait list period. I would also like to see her during yearly weight list testing for updated assessment. Per previous psychosocial assessment: Pt with diagnosis of anorexia and bulimia. She reports that she completed a residential eating disorders treatment program at [facility] in 2004. She has then participated in community based therapy on and off, and feels her eating disorder has now been controlled for approximately 10 years. She saw psychiatry team, based on their requirements, but felt it was not beneficial due to rotating Resident providers, and found it difficult to build rapport. She now participates in telehealth carewith a Psychiatrist in [place], Jamila Brown, per transplant center requirements. While she does not feel it is beneficial, she remains engaged as she understands it is a requirement for [facility] t ransplant consideration. Patient is overdue to yearly visit with transplant psychologist. Patient notified that transplant team will be reaching out to schedule, ok to schedule via telehealth. Message sent to nurse coordinator. Past or current psychotropic medications: Yes Patient takes Prozac, prescribed by mental health provider at [facility]. Current and/or history of suicidal ideation / attempt: No History of abuse, neglect, trauma, abandonment: No Depression screening (PHQ 2): Depression screening: performed, negative Patient identifies the following coping skills: Cleaning Taking a walk SUBSTANCE USE History of alcohol or other substance use disorder: No Past/current treatment for substance use disorder: No Current Substance Use (include details of amount and frequency): Alcohol: No Tobacco: No Illicit substances (Marijuana, Cocaine, etc): No Currently prescribed any pain medications: No ADHERENCE Medication Management: Patient fills pillbox. Patient educated on the importance of strict IS medication adherence post-transplant. If applicable, Dialysis unit, modality and treatment schedule: [facility] D[facility] In-Center Hemodialysis - 2x per week - Thursday / Thursday Patient report of missed dialysis treatments/early terminations in past 3 months: none Dialysis Unit report regarding attendance / adherence: Early terminations: No Attendance rate greater than 90% in the past 3 months: Yes Phosphorus greater than 6: Unknown Other comments: Dialysis unit identifies no concerns with dialysis adherence at this time. A1c (if patient has diabetes): Pt is not diabetic FINANCIAL INFORMATION Income source: Patient works full-time, works fully remote from home. Patient is eligible for short-term disability and FMLA. Patient notified that recovery period is 8-12 weeks before patients are able to return to work post-transplant. Patient's spouse works full-time, has the ability to board worker if needed. 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 Patient has been with employer for 22 years, has worked from home for 10+ years. Employment goals: Patient plans to return to work post-transplant when medically able. Current concern regarding finances: No Patient and spouse created savings account when she started transplant process to help with any unexpected transplant related costs. [employer] [facility] currently paying insurance premiums: No LEGAL INFORMATION Patient has Advance Directives: No Legal NOK - spouse Tomasz. Patient is in agreement with her spouse making medical decisions if needed. This SW explained the rules of kinship to this patient. Patient is aware that is the legal next of kin and has the right to make decisions on patient's behalf when unable to speak for self. Current legal situation impacting patient's ability to commit to transplant: No Patient history of legal problems: No PRIOR TO INITIAL VISIT - BASELINE / ACTIVITIES OF DAILY LIVING Functional status: Independent Patient drives Living arrangements: Owned Home Lives with spouse Tomasz. Pets in the home: Yes 1 dog Number of levels: Multiple Stories 2 story home Steps to enter the home/apartment: 1 step Steps to the bathroom and bedroom? Bedroom is on the second floor. They did a renovation to add a bathroom and bedroom on the first floor for patient to use post-transplant. Rails to enter: No COMMUNITY RESOURCES / SERVICES Prior or current services from a [facility] OR home health care agency: No BP machine, scale, thermometer at home: Yes History of placement in a nursing facility: No PROPOSED CARE / PLAN FOR SUPPORT AFTER TRANSPLANT Living Arrangements: WITH FAMILY/FRIENDS Patient will return to his/her home after transplant: Yes Patient plans to return home where she resides with her spouse Tomasz. Caregivers: Patient's spouse Tomasz will be primary caregiver. Patient's mother Chelle Ortiz will be back-up caregiver. Limitations of caregivers (time/health): None identified. Patient's spouse Tomasz is able to board worker and take time off work post-transplant. Patient's mother is retired, will assist as needed. Patient providing primary care for dependent(s): No Transportation plan: Patient's spouse Tomasz will transport to/from post clinic visits. Distance between home and [facility]: 1 hour IMPRESSION Nat Hatch is a 53 y.o. White or female [facility] Assessment update completed with patient on this date. Patient states that transplant is her preferred treatment option. Patient is in evaluation at with plans to multi-list. There is a reported history of anxiety and eating disorders. Patient currently follows with mental health provider (Frank Calderon in [place]) which also prescribes her Prozac. Patient was previously removed from waitlist in 2022 due to concerns with low weight. Per previous assessment, complications from PD may have contributed to weight loss so patient transitioned to in-center HD. Patient has previously completed residential eating disorder treatment programs as well as engaged in community based therapy. Patient was evaluated by transplant psychologist on 07/28/23 with the recommendation for yearlyfollow-up visits. There is no reported history of drug or alcohol abuse. Post-transplant support will be provided by patient's spouse Tomasz and mother Chelle Ortiz. Patient's spouse Tomasz is able to board worker and take time off work. Patient's mother is retired, able toassist with the care as needed. Patient and this SW discussed responsibilities that include treatment adherence, post transplant support expectations, medication co-payments, and communication with the transplant team. Handout summarizing the expectations were mailed to patient. This SW and patient discussed psychosocial risks from the transplant, such as PTSD, generalized anxiety disorder, and anxiety about being dependent on others. SW also explained that patient may have guilt feelings. Patient expresses understanding and is aware that SW is available both pre and post transplant. Barriers to be monitored: [ ] Physical / Functional [x] Psychological / Psychiatric / Cognitive [ ] Alcohol / Substance Use Disorder [ ] Current non-adherence [ ] Social Support [ ] Health Literacy [ ] Limited Portuguese Proficiency [ ] Other: PLAN / FOLLOW-UP [ ] Excellent Candidate [ X ] Good Candidate [ ] Conditional Candidate [ ] High Risk Candidate [ ] Poor Candidate Recommend annual visits with transplant psychologist (as recommended in transplant psychologist's assessment on 07/28/23). Patient is overdue for yearly visit, message sent to nurse coordinator to schedule. Ok to schedule via telehealth. Patient is aware of SW recommendations and in agreement with plan. This plan has been communicated to the multidisciplinary team including content coordinator: JOSE Patterson GREENHOUSE MANAGER, MED SPA MANAGER-S OTOLARYNGOLOGY SURGEON Radha Lyon GREENHOUSE MANAGER, MED SPA MANAGER [phone] documented in this encounter Plan of Treatment Not on file documented as of this encounter Visit Diagnoses Not on filedocumented in this encounter Care Teams Sandwich Hand Relationship Specialty Start Date End Date Marcelo Reese MD [address] [place] [id number] PCP - General Family Medicine 03/09/23 documented as of this encounter
--- OUTSIDE RECORDS SUMMARY | 2024-11-23 17:29 | XMS_ITS | Clinical Summary ---
Author Organization [facility] Address [address] [place] [address] Care Team Providers Care Alliance Director Name Role Phone Marcelo Reese MD Primary Care Provider + [phone] Allergies Active Allergy Reactions Criticality Noted Date Comments Penicillins Rash,Unknown - Patie nt states they do not know rxn details High 12/17/2020 Happened in childhood - amoxicillin tolerated in adulthood. Medications * This document contains information received from the source organization and may not represent a complete record from that organization. potassium chloride CR (Klor-Con M20) 20 MEQ ER tablet Take 1 tablet (20 mEq) by mouth 2 (two) times a day. Do not crush or chew. 60 tablet 11 3 Active Additional Information Patient taking differently:20 mEq OralDaily, Do not crush or chew., Reported on 10/12/2024 calcitriol (Rocaltrol) 0.5 MCG capsule Take 2 capsules (1 mcg) by mouth daily. 180 capsule 3 5 04/12/19 26 Active Additional Information Patient taking differently: 1.5 mcgOral Daily, Reported on 10/12/2024 FLUoxetine (PROzac) 20 MG capsule Take 2 capsules by mouth daily. 4 Active carvedilol (Coreg) 6.25 MG tablet Take 1 tablet by mouth 2 times a day with meals. 180 tablet 3 5 09/28/19 26 Active Tenapanor HCl, CKD, (Xphozah) 30 MG tablet Take 30 mg by mouth 2 times a day. Active Auryxia 1 GM 210 MG(Fe) tablet Take 2 tablets by mouth 3 times a day with meals. Active Active Problems Problem Noted Date Diagnosed Date Underweight 06/08/2022 Anemia due to chronic kidney disease 04/08/2022 Thrombocytosis 04/08/2022 ESRD needing dialysis 01/03/2022 Resolved Problems Problem Noted Date Diagnosed Date Resolved Date Peritoneal dialysis catheter dysfunction 04/08/2022 04/09/2022 Leukocytosis 04/08/2022 04/09/2022 Encounters Date Type Department Care Team Description 10/20/2024 Telephone [facility] [place] [address] [place] [address] Angie Major, RN 2024 Orders Only [place] [phone] [place] [address] Provider, Historical 10/13/2024 Telephone [place] [phone] [place] [address] Angie Major, RN 10/13/2024 Results Follow-Up [place] [phone] [place] [address] Angie Major, RN 10/12/2024 12:00 PM EDT Pharmacist Visit [place] [phone] [place] [address] Emily Payne, PharmD 10/12/2024 11:00 AM EDT Clinical Support [place] [phone] [place] [address] Naresh Nugent, JUDITH 10/12/2024 9:56 AM EDT - 10/12/2024 11:59 PM EDT Hospital Encounter [facility] [address] [place] [address] End stage renal disease ([facility]/HCC) Discharge Disposition: Home or Self Care 10/12/2024 8:54 AM EDT - 10/12/2024 9:55 AM EDT Hospital Encounter [facility] Pulmonary Function Testing [address] [place] [address] End stage renal disease ([facility]) Discharge Disposition: Home or Self Care 10/12/2024 Travel 09/27/2024 Orders Only [facility] [address], [address] [place] [address] Imelda Dallas PA 09/23/2024 Orders Only [facility] [place] [address] [address] Provider, Historical 09/15/2024 Telephone [facility] [address] [address] Nat Briscoe Appointment (Confirmed eval appt's on 10/12/24; mailed paperwork & routed (sched/map) via [employer]) 09/14/2024 Telephone [facility] [place] [phone] [address] Emily Livingston, RN 09/09/2024 11:00 AM EDT Social Work [facility] [address] [address] Cassia Verma, SWABBER 09/09/2024 Travel from Last 3 Months Immunizations Immunization Administration [...] drink first t caron in the morning (EYE-DIAMOND SETTER) to steady your nerves or to get [...] EDT Inhaled Oxygen Concentration - - Weight 47 kg (103 lb 9.9 oz) 10/12/2024 11:15 AM EDT Height 157.5 cm (5' 2 ) 06/09/2024 7:43 AM EDT Body Mass Index 18.95 06/09/2024 7:43 AM EDT Plan of Treatment Health Maintenance Due Date Last Done Comments [facility]-Medicare Annual Wellness (AWV) 1970 [facility]-/Child/Adol SDOH Screenings 1971 [facility]- SDOH Screenings 10/17/1989 [facility]-Adult SDOH Screenings 10/17/1989 [facility]-HPV/Cotest 10/17/2001 04/18/1996, 12/25/1995 CT Colonography 10/17/2016 [facility]-DNA 10/17/2016 FIT 10/17/2016 FOBT 10/17/2016 Sigmoidoscopy 10/17/2016 [facility]-Zoster Vaccines (1 of 2) 10/17/2021 [facility]-Pneumococcal Vaccine: 50+ Years (3 of 3 - PCV20 or PCV21) 10/28/2022 10/28/2017, 08/25/2017 Colonoscopy 12/26/2023 09/25/2023, 08/10, 12/25/2022, Additional history exists [facility]-Colorectal Cancer Screening 12/26/2023 [id number] Vaccine (3 - season) 2024 01/11/2021, 04/18/2020 [facility]-Influenza Vaccine (#1) 10/10/202411/04, 12/15/2018, 10/28/2017, Additional history exists [facility]-Hepatitis B Vaccines (6 of 6 - Risk Dialysis 4-dose series) 01/15/2025 01/16/2024, 10/17/2023, 08/29/2023, Additional history exists [facility]-Depression Screening 06/09/2025 06/09/2024 [facility]-DTaP,Tdap,and Td Vaccines (2 - Td or Tdap) 07/03/2025 07/04/2015 [facility]-Breast Cancer Screening 09/23/2026 09/23/2024 [facility]-Cervical Cancer Screening 09/24/2027 [facility]-Pap Smear 09/24/2027 09/23/2024, 04/09, 12/25/1995 [facility]-Hepatitis A Vaccines Completed 024, 08/29/2023, 07/29/2018, Additional history exists [facility]-HIV Screening Completed 10/12/2024, , 06/17/2023, Additional history exists [facility]-Hepatitis C Screening Completed 2024, 04/08/2022, 01/03/2022, Additional history exists HPV Vaccines Aged [...] this topic Medical Devices Implanted Type Area [employer] Package Symbol Stamper Device Identifier Shelf Expiration Date Model / Serial / Lot Duraclip 11mm - [id number] Implanted:Qty: 1 on 06/12/2022 by Byron Dixon MD at [facility]-[id number] 12/04/2023 [id number] / / [id number] Duraclip 16mm - [id number] Implanted:Qty: 1 on 12/25/2022 by Byron Dixon MD at [facility] Endosurgery-[id number] 12/10/2023 [id number] / / [id number] Duraclip 16mm - [id number] Implanted:Qty: 1 on 12/25/2022 by Byron Dixon MD at [facility] Endosurgery-[id number] 06/01/2024 [id number] / / [id number] Duraclip 11mm - [id number] Implanted:Qty: 1 on 12/25/2022 by Byron Dixon MD at [facility] Endosurgery-[id number] 02/25/2024 [id number] / / [id number] Procedures Procedure Name Priority Date/Time Associated Diagnosis Comments HIV 1/2 ANTIBODY/ANTIGEN SCREEN WITH REFLEX TO HIV I/II DIFFERENTIATION Routine 10/12/2024 10:42 AM EDT End stage renal disease ([facility]/HCC) QUANTIFERON TB GOLD PLUS Routine 10/12/2024 10:42 AM EDT End stage renal disease ([facility]) ABO/RH Routine 10/12/2024 10:42 AM EDT End stage renal disease ([facility]) APTT Routine 10/12/2024 10:42 AM EDT End stage renal disease ([facility]/HCC) BASIC METABOLIC PANEL, PLASMA Routine 10/12/2024 10:42 AM EDT End stage renal disease (CMS/HCC) CYTOMEGALOVIRUS ANTIBODY, IGG Routine 10/12/2024 10:42 AM EDT End stage renal disease (CMS/HCC) C-PEPTIDE Routine 10/12/2024 10:42 AM EDT End stage renal disease (CMS/HCC) TIFFANIE-JAIN VIRUS ANTIBODY TO VIRAL CAPSID ANTIGEN, IGG (SO Routine 10/12/2024 10:42 AM EDT End stage renal disease (CMS/HCC) HEMOGLOBIN A1C Routine 10/12/2024 10:42 AM EDT End stage renal disease (CMS/HCC) CBC W/O DIFFERENTIAL Routine 10/12/2024 10:42 AM EDT End stage renal disease (CMS/HCC) HEPATIC FUNCTION PANEL Routine 10:42 AM EDT End stage renal disease (CMS/HCC) HEPATITIS B CORE TOTAL AB (IGG AND IGM) Routine 10/12/2024 10:42 AM EDT End stage renal disease (CMS/HCC) HEPATITIS B SURFACE ANTIBODY, QUANTITATIVE Routine 10/12/2024 10:42 AM EDT End stage renal disease (CMS/HCC) HEPATITIS B SURFACE ANTIGEN Routine 10/12/2024 10:42 AM EDT End stage renal disease (CMS/HCC) HEPATITIS C ANTIBODY W/REFLEX TO HCV QUANT PCR Routine 10/12/2024 10:42 AM EDT End stage renal disease (CMS/HCC) HIV 1/2 ANTIBODY/ANTIGEN SCREEN W/REFLEX TO HIV 1/2 ANTIBODY DIFFERENTIATION Routine 10/12/2024 10:42 AM EDT End stage renal disease (CMS/HCC) LIPID PROFILE, PLASMA Routine 10/12/2024 10:42 AM EDT End stage renal disease (CMS/HCC) PHOSPHORUS, PLASMA Routine 10/12/2024 10 :42 AM EDT End stage renal disease (CMS/HCC) PROTHROMBIN TIME(PT) / INR Routine 10/12/2024 10:42 AM EDT End stage renal disease (CMS/HCC) TREPONEMA PALLIDUM (SYPHILIS) ANTIBODIES WITH REFLEX TO RPR AND RPR TITER (THOSE WITH NO KNOWN SYPHILIS) Routine 10/12/2024 10:42 AM EDT End stage renal disease (CMS/HCC) URIC ACID, PLASMA Routine 10/12/2024 10: 42 AM EDT End stage renal disease (CMS/HCC) VARICELLA ZOSTER ANTIBODY IGG Routine 10/12/2024 10:42 AM EDT End stage renal disease (CMS/HCC) HLA ANTIBODY TESTING (LSA) Routine 10/12/2024 10:42 AM EDT End stage renal disease (CMS/HCC) CT ABDOMEN PELVIS WO IV CONTRAST Routine 10/12/2024 10:24 AM EDT End stage renal disease (CMS/HCC) HC DIFFUSING CAPACITY - CARBON MONOXIDE DIFFUSING CAPACITY Routine 10/12/2024 9:54 AM EDT End stage renal disease (CMS/HCC) PAP TEST - CYTOLOGY Routine 09/23/2024 1 1:33 AM EDT MAMMOGRAPHY BREAST DIAGNOSTIC TOMOSYNTHESIS BILATERAL Routine 09/23/2024 11:32 AM EDT COLONOSCOPY Routine 09/03/2023 11:09 AM EDT CYTO DATA CONVERSION Routine 04/18/1996 12:00 AM EST from Last 3 Months or Most Recently Relevant to Health Maintenance Results * HEPATITIS B SURFACE ANTIBODY, QUANTITATIVE (10/12/2024 10:42 AM EDT) Hepatitis B Surface Antibody, Quantitative <8.00 NonReactiv e: <8, Grayzone: 8 - <12, Reactive: >= 12 mIU/mL 10/12/2024 12:02 PM EDT [facility] Comment: Nonreactive. Individual is considered not immune to HBV infection. Blood Venous blood specimen / Unknown Venipuncture / Unknown 10/12/2024 10:42 AM EDT 10/12/2024 11:02 AM EDT us Macho España MD LAB BLOOD ORDERABLES Tiana l Result Performing Organization Address [facility] Co de Phone Number [facility] [address] [place] [address] * Treponema Pallidum (Syphilis) Antibodies with Reflex to RPR and RPR Titer (Those with NO known Syphilis) (10/12/2024 10:42 AM EDT) [facility] Syphilis Antibody (IgG+IgM) Nonreactive Nonreactive 10/12/2024 12:03 PM EDT [facility] Comment:Nonreactive. No sero logic evidence of syphilis. No follow-up necessary unless clinically indicated (e.g., early syphilis). Blood Venous blood specimen / Unknown Venipuncture / Unknown 10/12/2024 10:42 AM EDT 10/12/2024 11:00 AM EDT us Macho España MD LAB BLOOD ORDERABLES Tiana l Result Performing Organization Address [facility] de Phone Number [facility] [address] [place] [address] * HIV 1 & 2 Antibody/Antigen Screen (10/12/2024 10:42 AM EDT) [facility] HIV 1 & 2 Antibody/Antigen Screen Non Reactive Non Reactive 10/12/2024 11:46 AM EDT [facility] Comment:Screening for HIV 1 & 2 antibodies, and P24 antigen is NONREACTIVE. No confirmatory testing is required. Blood Venous blood specimen / Unknown Venipuncture / Unknown 10/12/2024 10:42 AM EDT 10/12/2024 11:00 AM EDT us Macho España MD LAB BLOOD ORDERABLES Tiana l Result Performing Organization Address City/[facility]/ZIP Co de Phone Number [facility] [address] [place] [address] * HLA Antibody Testing (LSA) (10/12/2024 10:42 AM EDT) Blood Venous blood specimen / Unknown Venipuncture / Unknown 10/12/2024 10:42 AM EDT 10/12/2024 11:16 AM EDT us Macho España MD LAB BLOOD ORDERABLES Tiana l Result Performing Organization Address [facility] [place] [address], * Hepatitis C antibody (10/12/2024 10:42 AM EDT) Pathologist [facility] Hepatitis C Antibody Negative Negative 10/12/2024 11:44 AM EDT [facility] Blood Venous blood specimen / Unknown Venipuncture / Unknown 10/12/2024 10:42 AM EDT 10/12/2024 11:02 AM EDT us Macho España MD LAB BLOOD ORDERABLES Tiana l Result Performing Organization Address [facility] [place] [address] * (ABNORMAL) Tiffanie Jain IgG Ab (SO) (10/12/2024 10:42 AM EDT) Pathologist [facility] EBV ANTIBODY TO VIRAL CAPSID ANTIGEN IGG 740.0(H) <=17.9 U/mL 10/14/2024 1:59 AM EDT [facility] ([place]) Blood Venous blood specimen / Unknown Venipuncture / Unknown 10/12/2024 10:42 AM EDT 10/12/2024 11:01 AM EDT Narrative [facility] ([facility]) - 10/14/2024 1:59 AM EDT INTERPRETIVE INFORMATION: Tiffanie-Jain Virus Antibody to Viral Capsid Antigen, IgG 17.9 U/mL or less.......Not Detected 18.0-21.9 U/mL..........Indeterminate - Repeat testing in 10-14 days may be helpful. 22.0 U/mL or greater....Detected Performed By: [facility] [address] [place] [address] Roll Over Loader: Brandon Polk MD, PhD CLIA Number: [id number] Macho España MD LAB BLOOD ORDERABLES Tiana l Result Performing Organization Address City/[facility]/ZIP Co de Phone Number [facility] ([place]) [address] [place] [address] * Hepatitis B core antibody, total (10/12/2024 10:42 AM EDT) [facility] Hepatitis B Core Total Antibody IgG,IgM Negative Negative 10/12/2024 12:03 PM EDT [facility] Blood Venous blood specimen / Unknown Venipuncture / Unknown 10/12/2024 10:42 AM EDT 10/12/2024 11:00 AM EDT Macho España MD LAB BLOOD ORDERABLES Tiana l Result [facility] [address] [place] [address] * Quantiferon TB Gold Plus (10/12/2024 10:42 AM EDT) [facility] Quantiferon TB Gold Plus Result Negative Negative 10/13/2024 5:23 PM EDT [facility] TB Nill Value 0.0418 IU/mL 10/13/2024 5:23 PM EDT [facility] TB Antigen 1 0.0052 IU/mL 10/13/2024 5:23 PM EDT [facility] TB Antigen 2 0.0182 IU/mL 10/13/2024 5:23 PM EDT [facility] TB Mitogen 9.9582 IU/mL 10/13/2024 5:23 PM EDT [facility] Blood Venous blood specimen / Unknown Venipuncture / Unknown 10/12/2024 10:42 AM EDT 10/12/2024 11:04 AM EDT Narrative [facility] - 10/13/2024 5:23 PM EDT Responses to the Mitogen positive control and occasionally to TB antigen can be above the assay range. For calculation purposes: IFN-gamma values > 10 IU/mL are handled as 10 IU/mL. us Macho España MD LAB BLOOD ORDERABLES Tiana l Result Performing Organization Address City/[facility]/ZIP Co de Phone Number [facility] [address] [place] [address] * ABO/Rh (10/12/2024 10:42 AM EDT) ABO/Rh O Positive 10/12/2024 10:34 AM EDT BLO[facility] B[facility] Blood Venous blood specimen / Unknown Venipuncture / Unknown 10/12/2024 10:42 AM EDT 10/12/2024 11:00 AM EDT us Macho España MD LAB BLOOD BANK TEST ORDER SHANELL Final Result Performing Organization Address [facility] de Phone Number BLOOD BANK [address] [place] [address], * C Peptide (10/12/2024 10:42 AM EDT) Pathologist [facility] C Peptide 2.88 0.81 - 5.30 ng/mL 10/12/2024 12:02 PM EDT [facility] Blood Venous blood specimen / Unknown Venipuncture / Unknown 10/12/2024 10:42 AM EDT 10/12/2024 11:02 AM EDT us Macho España MD LAB BLOOD ORDERABLES Tiana l Result Performing Organization Address City/[facility] Co de Phone Number [facility] [address] [place] [address] * Hepatitis B surface antigen (10/12/2024 10:42 AM EDT) Pathologist [facility] Hepatitis B Surf Antigen Negative Negative 10/12/2024 12:02 PM EDT [facility] Blood Venous blood specimen / Unknown Venipuncture / Unknown 10/12/2024 10:42 AM EDT 10/12/2024 11:02 AM EDT Macho España MD LAB BLOOD ORDERABLES Tiana l Result [facility] [address] [place] [address] * Cytomegalovirus Antibody IgG (SO) (10/12/2024 10:42 AM EDT) CMV ANTIBODY IGG <0.20 <=0.59 U/mL 10/14/2024 1:52 AM EDT [email or web address] ([place]) Blood Venous blood specimen / Unknown Venipuncture / Unknown 10/12/2024 10:42 AM EDT 10/12/2024 11:01 AM EDT Narrative [facility] ([place]) - 10/14/2024 1:52 AM EDT INTERPRETIVE INFORMATION: Cytomegalovirus Antibody, IgG 0.59 U/mL or less......... Not Detected 0.6 - 0.69 U/mL........... Indeterminate-Repeat testing in 10-14 days may be helpful. 0.70 U/mL or greater...... Detected In immunocompromised patients, CMV serology (IgG or IgM antibody titers) may not be reliable and may be misleading in the diagnosis of acute or reactivation CMV disease. The preferred method for diagnosis is culture of virus and/or demonstration of viral antigen in peripheral white cells (buffy coat), bronchoalveolar lavage (BAL) cells, or tissue biopsies. This test should not be used for blood donor screening, associated re-entry protocols, or for screening Human Cell, Tissues and Cellular and Tissue-Based Products (HCT/P). The best evidence for current infection is a significant change on two appropriately timed specimens, where both tests are done in the same laboratory at the same time. Performed By: [facility] [address] [place] [id number] Roll Over Loader: Brandon Polk MD, PhD CLIA Number: [id number] Macho España MD LAB BLOOD ORDERABLES Tiana l Result [facility] ([place]) [address] [place] [address] * APTT (10/12/2024 10:42 AM EDT) aPTT 30 25 - 35 sec LAB COAGULATION METHOD 10/12/2024 11:19 AM EDT [facility] Blood Venous blood specimen / Unknown Venipuncture / Unknown 10/12/2024 10:42 AM EDT 10/12/2024 11:00 AM EDT us aMcho España MD LAB BLOOD ORDERABLES Tiana l Result Performing Organization Address City/[facility]/ZIP Co de Phone Number [facility] [address] [place] [address] * Protime-INR (10/12/2024 10:42 AM EDT) Prothrombin Time 13.9 12.0 - 14.3 sec LAB COAGULATION METHOD 10/12/2024 11:19 AM EDT [facility] INR 1.1 0.9 - 1.1 LAB COAGULATION METHOD 10/12/2024 11:19 AM EDT [facility] Blood Venous blood specimen / Unknown Venipuncture / Unknown 10/12/2024 10:42 AM EDT 10/12/2024 11:00 AM EDT Narrative [facility] - 10/12/2024 11:19 AM EDT OPTIMAL INR RANGES FOR PATIENT ON ORAL ANTICOAGULANT THERAPY Prevention of venous thromboembolism INR 2.0 to 3.0 In patients with heart disease: Atrial fibrillation INR 2.0 to 3.0 Valvular heart disease INR 2.0 to 3.0 Tissue heart valves INR 2.0 to 3.0 Mechanical prosthetic valves INR 2.5 to 3.5 Prevention of recurrent ID INR 2.5 to 3.5 us Macho España MD LAB BLOOD ORDERABLES Tiana l Result [facility] [address] [place] [address] * (ABNORMAL) Hemogram (10/12/2024 10:42 AM EDT) WBC Count 5.60 3.70 - 10.30 10*3/uL LAB HEMATOLOGY METHOD 10/12/2024 11:12 AM EDT [facility] RBC Count 4.33 3.90 - 5.20 10*6/uL LAB HEMATOLOGY METHOD 10/12/2024 11:12 AM EDT [facility] HGB 13.7 11.2 - 15.7 g/dL LAB HEMATOLOGY METHOD 10/12/2024 11:12 AM EDT [facility] HCT 44.1 34.0 - 45.0 % LAB HEMATOLOGY METHOD 10/12/2024 11:12 AM EDT [facility] Platelet Count 372(H) 155 - 369 10*3/uL LAB HEMATOLOGY METHOD 10/12/2024 11:12 AM EDT [facility] MCV 102(H) 79 - 98 fL LAB HEMATOLOGY METHOD 10/12/2024 11:12 AM EDT [facility] MCH 31.6 26.0 - 32.0 pg LAB HEMATOLOGY METHOD 10/12/2024 11:12 AM EDT [facility] MCHC 31.1 30.7 - 35.5 g/dL LAB HEMATOLOGY METHOD 10/12/2024 11:12 AM EDT [facility] RDW 14.4 11.5 - 14.5 % LAB HEMATOLOGY METHOD 10/12/2024 11:12 AM EDT [facility] MPV 9.4 8.8 - 12.5 fL LAB HEMATOLOGY METHOD 10/12/2024 11:12 AM EDT [facility] nRBC 0.0 <=0.0 per 100 WBCs LAB HEMATOLOGY METHOD 10/12/2024 11:12 AM EDT [facility] Blood Venous blood specimen / Unknown Venipuncture / Unknown 10/12/2024 10:42 AM EDT 10/12/2024 11:03 AM EDT us Macho España MD LAB BLOOD ORDERABLES Tiana ruiz Result [facility] [address] [place] [address] * (ABNORMAL) Varicella Zoster Antibody IgG (10/12/2024 10:42 AM EDT) Varicella Zoster Antibody IgG Positive(A ) Negative 10/12/2024 2:13 PM EDT [facility] Comment: Varicella-zoster IgG Result Interpretation: Negative: No IgG antibody specific to the varicella-zoster virus detected. Patient is presumed not to have had a previous exposure to varicella-zoster through infection or vaccination. Equivocal: Serologic status cannot be determined. Repeat testing in 10-14 days may be helpful. Positive: IgG antibody specific to varicella-zoster detected. This may indicate the patient was exposed to varicella-zoster through infection or vaccination. Blood Venous blood specimen / Unknown Venipuncture / Unknown 10/12/2024 10:42 AM EDT 10/12/2024 11:00 AM EDT us Macho España MD LAB BLOOD ORDERABLES Tiana l Result Performing Organization Address [facility] Co de Phone Number [facility] [address] [place] [address] * Uric acid (10/12/2024 10:42 AM EDT) Uric Acid, Plasma 5.1 3.1 - 7.1 mg/dL 10/12/2024 11:36 AM EDT [facility] Blood Venous blood specimen / Unknown Venipuncture / Unknown 10/12/2024 10:42 AM EDT 10/12/2024 11:02 AM EDT us Macho España MD LAB BLOOD ORDERABLES Tiana l Result [facility] [address] [place] [address] * (ABNORMAL) Phosphorus (10/12/2024 10:42 AM EDT) Phosphorus, Plasma 5.3(H) 2.5 - 4.5 mg/dL 10/12/2024 11:36 AM EDT [facility] Blood Venous blood specimen / Unknown Venipuncture / Unknown 10/12/2024 10:42 AM EDT 10/12/2024 11:02 AM EDT us Macho España MD LAB BLOOD ORDERABLES Tiana l Result [facility] [address] [place] [address] * Hemoglobin A1c (10/12/2024 10:42 AM EDT) Hemoglobin A1c 4.9 <5.7 % 10/12/2024 12:07 PM EDT [facility] Blood Venous blood specimen / Unknown Venipuncture / Unknown 10/12/2024 10:42 AM EDT 10/12/2024 11:03 AM EDT Narrative [facility] - 10/12/2024 12:07 PM EDT HA1C Interpretive Data: Diagnosis of Diabetes: Diabetic > or = 6.5% Pre-diabetic 5.7 to 6.4% Non-diabetic < or = 5.6% Glycemic Targets for Type I and Type II Diabetics: Non- Adults <7.0% Adults <6.0% Children and Adolescents <7.5% Source: [place] [employer]. Standards of medical care in diabetes,2017. Diabetes Care.2017:40 (suppl 1):S1-S135. us Macho España MD LAB BLOOD ORDERABLES Tiana l Result Performing Organization Address City/[facility] Co de Phone Number [facility] [address] [place] [address] * (ABNORMAL) Hepatic function panel (10/12/2024 10:42 AM EDT) Direct Bilirubin, Plasma <0.2 <=0.3 mg/dL 10/12/2024 11:36 AM EDT [facility] Alkaline Phosphatase, Plasma 185(H) 35 - 104 U/L 10/12/2024 11:36 AM EDT [facility] Total Bilirubin, Plasma 0.4 0.2 - 1.1 mg/dL 10/12/2024 11:36 AM EDT [facility] Albumin, Plasma 4.5 3.5 - 5.2 g/dL 10/12/2024 11:36 AM EDT [facility] Total Protein 7.8 6.3 - 7.9 g/dL 10/12/2024 11:36 AM EDT [facility] ALT, Plasma 10 10 - 35 U/L 10/12/2024 11:36 AM EDT [facility] AST, Plasma 22 10 - 35 U/L 10/12/2024 11:36 AM EDT [facility] Blood Venous blood specimen / Unknown Venipuncture / Unknown 10/12/2024 10:42 AM EDT 10/12/2024 11:02 AM EDT us Macho España MD LAB BLOOD ORDERABLES Tiana ruiz Result [facility] [address] [place] [address] * (ABNORMAL) Lipid panel (10/12/2024 10:42 AM EDT) Cholesterol, Plasma 228(H) <200 mg/dL 10/12/2024 11:36 AM EDT [facility] Comment: Cholesterol Reference Range (age >17 years): Desirable <200 mg/dL Borderline 200 to 239 mg/dL Undesirable >239 mg/dL HDL 63 >=50 mg/dL 10/12/2024 11:36 AM EDT [facility] Comment: HDL Cholesterol Reference Ranges (age >17 years): Female, acceptable > or = 50 mg/dL Male, acceptable > or = 40 mg/dL Triglycerides, Plasma 86 <150 mg/dL 10/12/2024 11:36 AM EDT [facility] Comment: Triglyceride Reference Range (age >17 years): Desirable: <150 mg/dL Borderline high: 150 to 199 mg/dL High: 200 to 499 mg/dL Very high: >499 mg/dL Increased risk of pancreatitis: >1000 mg/dL Cholesterol/HDL Ratio 4 10/12/2024 11:36 AM EDT [facility] LDL, Calculated 150(H) <100 mg/dL 11:36 AM EDT [facility] Comment: LDL Cholesterol Reference Range (age >17 years): Optimal: <100 mg/dL Near or above optimal: 100 - 129 mg/dL Borderline high: 130 - 159 mg/dL High: 160 - 189 mg/dL Very high: >189 mg/dL LDL Cholesterol Reference Range (age <18 years): Desirable: <110 mg/dL Borderline: 110 - 129 mg/dL Undesirable: >130 mg/dL LDL Cholesterol is calculated using the Ulloa/NIH equation. Fasting greater than or equal to 12 hours? Yes 10/12/2024 11:36 AM EDT [facility] Blood Venous blood specimen / Unknown Venipuncture / Unknown 10/12/2024 10:42 AM EDT 10/12/2024 11:02 AM EDT us Macho España MD LAB BLOOD ORDERABLES Tiana ruiz Result [facility] [address] [place] [address] * (ABNORMAL) Basic metabolic panel (10/12/2024 10:42 AM EDT) Glucose, Plasma 90 74 - 99 mg/dL 10/12/2024 11:36 AM EDT [facility] BUN, Plasma 18 7 - 21 mg/dL 10/12/2024 11:36 AM EDT [facility] Creatinine, Plasma 7.78(H) 0.60 - 1.10 mg/dL 10/12/2024 11:36 AM EDT [facility] BUN/Creatinine Ratio 2 10/12/2024 11:36 AM EDT [facility] Sodium, Plasma 141 136 - 145 mmol/L 10/12/2024 11:36 AM EDT [facility] Potassium, Plasma 5.0(H) 3.6 - 4.9 mmol/L 10/12/2024 11:36 AM EDT [facility] Chloride, Plasma 101 97 - 107 mmol/L 10/12/2024 11:36 AM EDT [facility] CO2, Plasma 26 22 - 29 mmol/L 10/12/2024 11:36 AM EDT [facility] Anion Gap 14 6 - 16 mmol/L 10/12/2024 11:36 AM EDT [facility] Total Calcium, Plasma 9.8 8.9 - 10.2 mg/dL 10/12/2024 11:36 AM EDT [facility] eGFRcr 5.8 mL/min/1.7 3m*2 10/12/2024 11:36 AM EDT [facility] Comment:Reported eGFRcr in m L/min/1.73m2 is based the CKD-EPI 2020 equation that does not use a race coefficient. Blood Venous blood specimen / Unknown Venipuncture / Unknown 10/12/2024 10:42 AM EDT 10/12/2024 11:02 AM EDT us Macho España MD LAB BLOOD ORDERABLES Tiana ruiz Result [facility] [address] [place] [address] * CT Abdomen Pelvis wo IV Contrast [...] signing this report, I, the attending physician, [email or web address] I have personally reviewed the images/data for the aboveexamination(s) and agree with the final edited report. Drafted by GALEN Reyes on 10/12/2024 11:07 AM Final report signed by Ramu Crawford MD on 10/12/2024 1:03 PM Macho España MD IMG CT PROCEDURES Final R esult * (ABNORMAL) Pulmonary Function Testing (10/12/2024 9:54 AM EDT) MQA2UFWU 3.26 2.35 - 3.73 L VYAIRE PFT PVE2OVN 3.19 2.35 - 3.73 L VYAIRE PFT FVC PRED 3.03 VYAIRE PFT FVC LLN 2.35 VYAIRE PFT FVCPREZSCORE 0.38 VYAIRE PFT FVCPRE%PRED 105 % % VYAIRE PFT FVCPOSTZSCORE 0.55 VYAIRE PFT FVCPOST%PRED 108 % % VYAIRE PFT FVCCHNG 72.00 VYAIRE PFT FVC%CHG 2 % % [facility]AIRE PFT [facility] (2011) VYAIRE PFT FVC Z-SCORE 0.38 0.55 VYAIRE PFT CKA96PBJV 2.71 1.88 - 2.96 L VYAIRE PFT FEV1 PRE 2.57 1.88 - 2.96 L VYAIRE PFT FEV1 PRED 2.43 VYAIRE PFT FEV1 LLN 1.88 VYAIRE PFT ICD2KMOPGBJNF 0.43 VYAIRE PFT FEV1_Pre%Pred 106 % % VYAIRE PFT NAL6KLTESLYFAT 0.88 VYAIRE PFT ZGN7QSOC%PRED 112 % % VYAIRE PFT MRA8MIIV 147.20 VYAIRE PFT FEV1%CHG 6 % % [facility]AIRE PFT FEV[facility] (2011) VYAIRE PFT FEV1 Z-SCORE 0.43 0.88 VYAIRE PFT PAV5UHR6NBKC 83.28 69.18 - 90.22 % VYAIRE PFT FEV1/FVC PRE 80.54 69.18 - 90.22 % VYAIRE PFT ICD0GCFKPDT 81 VYAIRE PFT EAA7YKMXTA 69 VYAIRE PFT NJA2DADDYILYHAPN -0.01 VYAIRE PFT JAF3ULALGG%PRED 100 % % VYAIRE PFT XTO3TGDICZSGJMSEZ 0.44 VYAIRE PFT IQW3ZXVRZFR%PRED 103 % % VYAIRE PFT EUB6BQCDTEP 2,737 VYAIRE PFT APT2SVE%CHG 3 % % VYAIRE PFT GOQ1QORFYFVX [facility] (2011) VYAIRE PFT NDV1QEPTWGXHK -0 0 VYAIRE PFT FID82-55%_POST 2.70 1.33 - 3.84 L/s VYAIRE PFT GSS31-80% PRE 2.33 1.33 - 3.84 L/s VYAIRE PFT WDK46-31%_Pred 2.42 VYAIRE PFT OMW0650%LLN 1.33 VYAIRE PFT VBA9943%PREZSCORE -0.12 VYAIRE PFT QHG8990%PRE%PRED 96 % % VYAIRE PFT XQZ1384%POSTZSCORE 0.35 VYAIRE PFT DYY3648%POST%PRED 111 % % VYAIRE PFT XAQ5427%CHNG 368.27 VYAIRE PFT VFW5526%%CHG 16 % % VYAIRE PFT CDL2316%PREDAUTCla[facility] (2011) VYAIRE PFT SKM2TEHD 7.84(A) 4.66 - 7.77 L/s VYAIRE PFT PEF PRE 7.82(A) 4.66 - 7.77 L/s VYAIRE PFT PEF PRED 6.21 VYAIRE PFT PEF LLN 4.66 VYAIRE PFT PEFPREZSCORE 1.70 VYAIRE PFT PEFPRE%PRED 126 % % VYAIRE PFT PEFPOSTZSCORE 1.73 VYAIRE PFT PEFPOST%PRED 126 % % VYAIRE PFT PEFCHNG 26.00 VYAIRE PFT PEF%CHG 0 % % VYAIRE PFT PEF PREDAUT [facility] (1998) VYAIRE PFT MSPLVTJGDUVJUGRX0OIO 17.61 14.63 - 23.90 ml/(min* mmHg) VYAIRE PFT DLCOSINGLEBREATH PRED 18.83 VYAIRE PFT DLCOSINGLEBREATH LLN 14.63 VYAIRE PFT DLCOSINGLEBREATH Z-SCORE -0.45 VYAIRE PFT DLCOSINGLEBREATH % PRED 93.5 % VYAIRE PFT DLCOSINGLEBREATH [facility] Stanojevic TLCO GLI (2019) VYAIRE PFT DLCOSINGLEBREATH Z-SCORE -0.45 10/12/2024 9:51 AM EDT VYAIRE PFT CKGVZOALPLZBNDLBY0HE E 17.61 14.63 - 23.90 ml/(min* mmHg) VYAIRE PFT DLCOCSINGLEBREATH PRED 18.83 VYAIRE PFT DLCOCSINGLEBREATH LLN 14.63 VYAIRE PFT DLCOCSINGLEBREATH Z-SCORE -0.45 VYAIRE PFT DLCOCSINGLEBREATH % PRED 93.5 % VYAIRE PFT DLCOCSINGLEBREATH [facility] Stanojevic TLCO GLI (2019) VYAIRE PFT BMRXGI2TGZ 3.96 3.44 - 5.52 ml/(min* mmHg*L) VYAIRE PFT DLCOVAPRED 4.42 VYAIRE PFT DLCOVALLN 3.44 VYAIRE PFT DLCOVAZSCORE -0.75 VYAIRE PFT DLCOVA%PRED 89.6 % VYAIRE PFT DLCOVAPREDAUT Stanojevic TLCO GLI (2019) VYAIRE PFT DLCOVAZSCORE -0.75 10/12/2024 9:51 AM EDT VYAIRE PFT KOOAVDHYV4MBB 3.96 3.44 - 5.52 ml/(min* mmHg*L) VYAIRE PFT DLCOC SB/VA PRED 4.42 VYAIRE PFT DLCOC SB/VA LLN 3.44 VYAIRE PFT DLCOC SB/VA Z-SCORE -0.75 VYAIRE PFT DLCOC SB/VA % PRED 89.6 % VYAIRE PFT DLCOC SB/VA [facility] Stanojevic TLCO GLI (2019) VYAIRE PFT DLCOC SB/VA Z-SCORE -0.75 10/12 9:51 AM EDT VYAIRE PFT UFJVIJVPUVLDST9WBZ 4.45 3.51 - 5.17 L VYAIRE PFT VASINGLEBREATH PRED 4.30 VYAIRE PFT VASINGLEBREATH LLN 3.51 VYAIRE PFT VASINGLEBREATH Z-SCORE 0.29 VYAIRE PFT VASINGLEBREATH % PRED 103.4 % VYAIRE PFT VASINGLEBREATH [facility] Stanojevic TLCO GLI (2019) VYAIRE PFT VASINGLEBREATH Z-SCORE 0.29 10/12/2024 9:51 AM EDT VYAIRE PFT KAFYRHNERGHKAQI1RUI 3.18 2.35 - 3.73 L VYAIRE PFT IVCSINGLEBREATH PRED 3.03 VYAIRE PFT IVCSINGLEBREATH LLN 2.35 VYAIRE PFT IVCSINGLEBREATH Z-SCORE 0.36 VYAIRE PFT IVCSINGLEBREATH % PRED 105.1 % VYAIRE PFT IVCSINGLEBREATH PR[facility]_Quanjer GLI (2011) VYAIRE PFT SERAFIN% VCMAX PRE 93.94 % VYAIRE PFT TLC SB PRE 4.55 3.80 - 5.61 L VYAIRE PFT TLCSINGLEBREATH PRED 4.65 VYAIRE PFT TLCSINGLEBREATH LLN 3.80 VYAIRE PFT TLCSINGLEBREATH Z-SCORE -0.19 VYAIRE PFT TLCSINGLEBREATH % PRED 97.7 % VYAIRE PFT TLCSINGLEBREATH PR[facility] Lung volumes GLI (2019)__ VYAIRE PFT HB PRE 13.40 g(Hb)/dL VYAIRE PFT EJB5DPV 4.87 3.80 - 5.61 L VYAIRE PFT TLCPRED 4.65 VYAIRE PFT TLCLLN 3.80 VYAIRE PFT TLCULN 5.61 VYAIRE PFT TLCZSCORE 0.38 VYAIRE PFT TLC%PRED 104.5 % VYAIRE PFT TLCPREDAUTNorwalk [facility] Hospital Lung volumes GLI (2019)__ VYAIRE PFT VC0PRE [...] VYAIRE PFT IC%PRED 77.1 % VYAIRE PFT ICPREDAUTNorwalk [facility] Lung volumes GLI (2019)__ VYAIRE PFT SLNNYGJL2MYA 3.09 1.67 - 3.23 L VYAIRE PFT FRCPLETH PRED 2.36 VYAIRE PFT FRCPLETH LLN 1.67 VYAIRE PFT FRCPLETH ULN 3.23 VYAIRE PFT FRCPLETH Z-SCORE 1.40 VYAIRE PFT FRCPLETH % PRED 130.8 % VYAIRE PFT FRCPLETH PREDAUTNorwalk Memorial Hospital Lung volumes GLI (2019)__ VYAIRE PFT BYI2AFZ 1.61(A) 0.33 - 1.57 L VYAIRE PFT ERVPRED 0.84 VYAIRE PFT ERVLLN 0.33 VYAIRE PFT ERVULN 1.57 VYAIRE PFT ERV Z-SCORE 1.71 VYAIRE PFT ERV%PRED 190.3 % VYAIRE PFT ERVPREDAUTNorwalk Memorial Hospital Lung volumes GLI (2019)__ VYAIRE PFT RV0PRE 1.48 0.84 - 2.15 L VYAIRE PFT RVPRED 1.41 VYAIRE PFT RVLLN 0.84 VYAIRE PFT RVULN 2.15 VYAIRE PFT RVZSCORE 0.17 VYAIRE PFT RV%PRED 104.9 % VYAIRE PFT RVPREDAUT [facility] Lung volumes GLI (2019)__ VYAIRE PFT RV%SRK0VBA 30.41 19.53 - 41.05 % VYAIRE PFT RV%TLCPRED 30 VYAIRE PFT RV%TLCLLN 20 VYAIRE PFT RV%TLCULN 41 VYAIRE PFT RV%TLCZSCORE 0.08 VYAIRE PFT RV%TLC%PRED 101.7 % VYAIRE PFT RV%TLCPREDAUTH [facility] Lung volumes GLI (2020)__ VYAIRE PFT Anatomical Region Laterality Modality PFT 10/12/2024 9:05 AM EDT Narrative 10/16/2024 8:24 PM EDT Pulmonary Function Testing Report Nat Hatch 53 y.o. underwent pulmonary function testing today at the [facility]. The patient underwent spirometry, lung volumes [...] There are no prior studies for comparison. Macho España MD PFT ORDERABLES Final Res ult * Pap Test (09/23/2024 11:33 AM EDT) Thin Prep Vaginal and cervical cytologic material / Unknown [facility] Provider LAB CYTOLOGY ORDERABLES Tiana l Result * Mammography Breast Diagnostic Tomosynthesis Bilateral (09/23/2024 11:32 AM EDT) Anatomical Region Laterality Modality Breast Bilateral Mammography Result [facility] Historical Provider IMG BI PROCEDURES Final Resu lt * Colonoscopy (09/03/2023 11:09 AM EDT) Anatomical Region Laterality Modality Endoscopy [facility] Provider GI PROCEDURE ORDERABLES Tiana l Result * Cytology (04/18/1996 12:00 AM EST) 04/18/1996 04/20/1996 Narrative SUNQUEST - 05/06/1996 12:00 AM EST [facility] MR #: [facility] NAT [place], [place] [address] 1970 (Age: 25) F Collect Date: 04/18/1996 00:00 Receipt Date: 04/20/1996 00:00 Page 1 DEPARTMENT OF PATHOLOGY AND LABORATORY MEDICINE CYTOPATHOLOGY REPORT Email: [email or web address] * Converted Case * This report may [...] results is suggested (please call Microbiology at [phone] for results). CLINICAL INFORMATION: Menstrual History: {Not Provided} Date of Last Menstrual Period: {Not Provided} SPECIMEN DESCRIPTION: A: CERVICAL/VAGINAL SMEAR, PAP ICD: F: {Not Entered} SNOMED CODES: 1; S8N290 [id number] [id number] In cases where a pathologist has signed out the report, the service has been rendered in part by a resident. The signing pathologist has performed and is responsible for the reported pathologic evaluation. us Historical Provider LAB PATHOLOGY ORDERABLES Fin al Result SUNQUEST from Last 3 Months or Most Recently Relevant to Health Maintenance Insurance [facility] MEDICARE [facility] MEDICARE [facility] MEDICARE Advance Directives * Full Code (Latest Code Status on File) Date Activated Date Inactivated Comments 04/08/2022 12:54 PM 04/09/2022 4:01 PM Question Answer Comments Patient has decision-making capacity? Yes Care Teams Alliance Director Relationship Specialty Start Date End Date Marcelo Reese MD [address] [facility] [address] [place] [address] PCP - General 06/22/20
--- OUTSIDE RECORDS SUMMARY | 2024-11-23 17:29 | XMS_ITS | Encounter Summary ---
Author Organization Healthcare Address [address] [place] [address] Care Team Providers Care Mannequin Molder Name Role Phone Marcelo Reese MD Primary Care Provider + [phone] Encounter Details Date Type Department Care Team (Late st Contact Info) Description 04/04/2020 [facility] Encounter Historical OTTR [address] [place] [address] [place] [address] Social History Tobacco Use Types Packs/Day Years [...] on filedocumented in this encounter Care Teams Mannequin Molder Relationship Specialty Start Date End Date Marcelo Reese MD [address] [facility] [address] [address] PCP - General 06/22/20 documented as of this encounter
--- OUTSIDE RECORDS SUMMARY | 2024-11-23 17:29 | XMS_ITS | Encounter Summary ---
Author Organization Healthcare Address [address] [place] [address] Care Team Providers Care Casino Games Dealer Name Role Phone Marcelo Reese MD Primary Care Provider + [phone] Encounter Details Date Type Department Care Team (Late st Contact Info) Description 04/03/2020 [facility] OT[facility] Encounter Historical OTTR [address] [place] [address] Jumana Ku, RN [facility] Social History [...] PM EST [facility], she needs to start again. And, [...] on filedocumented in this encounter Care Teams Casino Games Dealer Relationship Specialty Start Date End Date Marcelo Reese MD [address] [place] [address] PCP - General 06/22/20 documented as of this encounter
[2024-11-23 17:31] VITALS: BP 156/76; PULSE 73; O2SAT 96
[2024-11-23 17:33] VITALS: O2SAT 95
--- OUTSIDE RECORDS SUMMARY | 2024-11-23 17:33 | XMS_ITS | Encounter Summary ---
Author Organization Healthcare Address [address] [place] [address] Care Team Providers Care Lumber Stacker Name Role Phone Marcelo Reese MD Primary Care Provider [phone] Encounter Details Date Type Department Care Team (Late st Contact Info) Description 08/24/2019 [facility] OT[facility] Encounter Historical OTTR [address] [place] [address] [place] [address] Social History Tobacco Use Types Packs/Day Years [...] on filedocumented in this encounter Care Teams Lumber Stacker Relationship Specialty Start Date End Date Marcelo Reese MD [address] [place] [address] PCP - General 06/22/20 documented as of this encounter
--- OUTSIDE RECORDS SUMMARY | 2024-11-23 17:33 | XMS_ITS | Encounter Summary ---
Author Organization Healthcare Address [address] [place] [id number] Care Team Providers Care Rental Counter Clerk Name Role Phone Marcelo Reese MD Primary Care Provider [phone] Encounter Details Date Type Department Care Team (Late st Contact Info) Description 09/01/2018 [facility] OT[facility] Encounter Historical OTTR [address] [place] [address] Emily Livingston, RN HOSPITAL KIDNEY [id number] [address] [place] [phone] Social History Tobacco Use Types Packs/Day Years [...] on filedocumented in this encounter Care Teams Rental Counter Clerk Relationship Specialty Start Date End Date Marcelo Reese MD [address] [place] [address] PCP - General 06/22/20 documented as of this encounter
--- OUTSIDE RECORDS SUMMARY | 2024-11-23 17:33 | XMS_ITS | Encounter Summary ---
Author Organization Healthcare Address [address] [place] [id number] Care Team Providers Care Mission Worker Name Role Phone Marcelo Reese MD Primary Care Provider + [phone] Encounter Details Date Type Department Care Team (Late st Contact Info) Description 07/13/2018 [facility] OT[facility] Encounter Historical OTTR [address] [place] [address] Emily Livingston, RN HOSPITAL KIDNEY [id number] [address] [place] [phone] Social History Tobacco Use Types Packs/Day Years [...] on filedocumented in this encounter Care Teams Mission Worker Relationship Specialty Start Date End Date Marcelo Reese MD [address] [place] [address] PCP - General 06/22/20 documented as of this encounter
--- OUTSIDE RECORDS SUMMARY | 2024-11-23 17:33 | XMS_ITS | Encounter Summary ---
Author Organization [facility] Address [address] [place] [address] Care Team Providers Care Plant General Manager Name Role Phone Marcelo Reese MD Primary Care Provider + [phone] Encounter Details Date Type Department Care Team (Late st Contact Info) Description 06/15/2018 [facility] OT[facility] Encounter Historical OTTR [address] [place] [address] [place] [address] Social History Tobacco Use Types Packs/Day Years [...] on filedocumented in this encounter Care Teams Plant General Manager Relationship Specialty Start Date End Date Marcelo Reese MD [address] [facility] [address] [place] [id number] PCP - General 06/22/20 documented as of this encounter
--- OUTSIDE RECORDS SUMMARY | 2024-11-23 17:33 | XMS_ITS | Encounter Summary ---
Author Organization [facility] Address [address] [place] [id number] Care Team Providers Care B2B Sales Representative Name Role Phone Marcelo Reese MD Primary Care Provider + [phone] Encounter Details Date Type Department Care Team (Late st Contact Info) Description 08/24/2018 [facility] OT[facility] Encounter Historical OTTR [address] [place] [address] Emily Livingston, RN HOSPITAL KIDNEY [id number] [address] [place] [phone] Social History Tobacco Use Types Packs/Day Years [...] EDT pt called and said she called [facility] to set up an appt and they [...] if she needed me to call the [facility] clinic I would, she understood. documented in this encounter Plan of Treatment Not on file documented as of this encounter Visit Diagnoses Not on filedocumented in this encounter Care Teams B2B Sales Representative Relationship Specialty Start Date End Date Marcelo Reese MD [address] [place] [address] PCP - General 06/22/20 documented as of this encounter
--- OUTSIDE RECORDS SUMMARY | 2024-11-23 17:33 | XMS_ITS | Encounter Summary ---
Author Organization Healthcare Address [address] [place] [address] Care Team Providers Care Bi Developer Name Role Phone Marcelo Reese MD Primary Care Provider [phone] Encounter Details Date Type Department Care Team (Late st Contact Info) Description 09/02/2018 [facility] Encounter Historical OTTR [address] [place] [address] [place] [address] Social History Tobacco Use Types Packs/Day Years [...] on filedocumented in this encounter Care Teams Bi Developer Relationship Specialty Start Date End Date Marcelo Reese MD [address] [facility] [address] [place] [address] PCP - General 06/22/20 documented as of this encounter
--- OUTSIDE RECORDS SUMMARY | 2024-11-23 17:33 | XMS_ITS | Encounter Summary ---
Author Organization [facility] Address [address] [place] [address] Care Team Providers Care Senior Resident Care Director Name Role Phone Marcelo Reese MD Primary Care Provider Encounter Details Date Type Department Care Team (Late st Contact Info) Description 10/21/2019 [facility] OTTR Encounter Historical OTTR [address] [place] [address] Cassia Verma, [place] [phone] Social History Tobacco Use Types Packs/Day Years [...] evaluation on 10/20/19 with full documentation in SCM. Pt remains socially cleared for listing. documented in this encounter Plan of Treatment Not on file documented as of this encounter Visit Diagnoses Not on filedocumented in this encounter Care Teams Senior Resident Care Director Relationship Specialty Start Date End Date Marcelo Reese MD [address] [place] [address] PCP - General 06/22/20 documented as of this encounter
--- OUTSIDE RECORDS SUMMARY | 2024-11-23 17:33 | XMS_ITS | Encounter Summary ---
Author Organization [facility] Address [address] [place] [address] Care Team Providers Care Rn International Name Role Phone Marcelo Reese MD Primary Care Provider [phone] Encounter Details Date Type Department Care Team (Late st Contact Info) Description 10/20/2024 Telephone [facility] [address] [facility] [address] [place] [address] Angie Major RN [place] [phone] Social History Tobacco Use Types Packs/Day Years [...] drink first t caron in the morning (EYE-MILK PICKUP DRIVER) to steady your nerves or to get [...] Miscellaneous Notes * Telephone Encounter - Angie Major RN - 10/20/2024 2:39 PM EDT Informed pt of committee decision and the need to repeat her colonoscopy, was overdue for 6 month repeat per previous doctor's recommendations. She plans to schedule this locally and will contact me once she has an appt. No further needs. documented in this encounter Plan of Treatment [...] documented as of this encounter Care Teams Rn International Relationship Specialty Start Date End Date Marcelo Reese MD [address] [place] [address] PCP - General 06/22/20 documented as of this encounter
--- OUTSIDE RECORDS SUMMARY | 2024-11-23 17:33 | XMS_ITS | Encounter Summary ---
Author Organization Healthcare Address [address] [place] [address] Care Team Providers Care Director Economic Name Role Phone Marcelo Reese MD Primary Care Provider [phone] Encounter Details Date Type Department Care Team (Late st Contact Info) Description 04/10/2021 Lab Requisition [facility] [address] [place] [address] Manuel Menon MD [address] [place] [address] Awaiting organ transplant status Social History Tobacco [...] MD LAB BLOOD ORDERABLES Final Res ult [facility] [address] [place], [place] [address] documented in this encounter Visit Diagnoses Diagnosis Awaiting organ transplant status documented in this encounter Additional Health Concerns Assessment Noted Time A fall risk assessment has been complete d for the patient 12/17/2020 2:12 PM EST documented as of this encounter Care Teams Director Economic Relationship Specialty Start Date End Date Marcelo Reese MD [address] [place] [address] PCP - General 06/22/20 documented as of this encounter
--- OUTSIDE RECORDS SUMMARY | 2024-11-23 17:33 | XMS_ITS | Encounter Summary ---
Author Organization Healthcare Address [address] [place] [address] Care Team Providers Care Campaign Associate Name Role Phone Marcelo Reese MD Primary Care Provider + [phone] Encounter Details Date Type Department Care Team (Late st Contact Info) Description 12/22/2017 [facility] OTTR Encounter Historical OTTR [address] [place] [address] Jumana Ku, RN CH-TRANSPLANT ADMINISTRATION Social History [...] contraindication, however she should check with her family specialist on the medication and dosage. Request return [...] time. We [facility]00 [facility] [...] 4 mm nod preop kidney txp ESRD [facility] SCM NPR updating IAuth and nurse * Progress Notes - Jumana Ku - 10/21/2017 7:49 AM EDT [employer] and dental clearance form secure emailed to patient per her request as she states she neverreceived the mailed copy. * Progress Notes - Tiffani Gambino - 10/19/2017 2:40 PM EDT manager trust requested update on pt's eval status, fax [...] Alyson notified CT and US orders in [facility], please schedule for next available. * Progress Notes - ProviderDebbie MD - 08/31/2017 11:55 AM EDT DOS 08/31/2017 CT Abd pelvis wo oral/IV contrast preop kidney txp [facility] plan code NPR verified secondary insurance [employer] [phone] transplant specialist will update IAuth and nurse. [...] [facility]. She confirmed understanding. Orders in [facility]. Please schedule. Local work up letter auto saved in OTTR. Please mail with evaluation information. * Progress Notes - Alyson Holguin - 07/16/2017 2:32 PM EDT Called and scheduled pt for surgeon f/u appt on 07.27.2017 @ 1pm. Appt was confirmed. Mailed appt reminder from [facility]. * Progress Notes - Tiffani Kennedy - [...] [facility] [...] Lavern Valdes - 07/03/2017 2:55 PM EDT RIA met with pt for TXP SW eval. If patient is cleared by psych for transplant, RIA is comfortable approving patient for transplant from [...] @ 1100. Updated APM, SCM, OTTR, and [facility]. Called and spoke w/ pt.Gave her 07/03/17 [...] EDT RIA received email from Dr. Pastor's material scheduler stating pt will be seen on 06/26 @ 1:30 PM for a psych eval. RIA forwarded email to schedulers requesting to see pt same day. * Progress Notes - Lavern Valdes - 05/21/2017 11:38 AM EDT SW received and reviewed pt's therapy notes. SW referred pt to Dr. Pastor and forwarded him pt's therapy notes. SW asked that his material scheduler notify SW of the appointment she plans [...] Puckett notified to please review. Orders in SCM. Please schedule SW and Pscyhiatry apts for [...] 10:42 AM EDT Spoke with Divya at [facility] [place] office and reqeust records. She stated she [...] 04/29/2017 11:42 AM EDT Left message for [facility]'s office requesting update on records request. * Progress Notes - Jumana Ku - 04/23/2017 11:07 AM EDT Faxed signed medical records release to [facility] (SW/Therapist) for most recent notes. * Progress Notes - Viki Gordon W - 03/24/2017 10:54 AM EST ICE packet mailed USPS [id number]. ICE letter mailed to ref * Progress Notes - Viki Gordon W - 03/19/2017 10:34 AM EST Spoke with patient and offered ICE apt. Patient is scheduled for 04/23/17 arriving at 7:30 for an 8:00 surg apt at the [facility]. * Progress Notes - Viki Gordon W - 03/19/2017 7:54 AM EST Received [...] Interface us Historical Provider LAB BLOOD ORDERABLES Final R esult EXTERNAL LAB * OTTR LAB RESULTS (MANUAL) [...] Center us Historical Provider LAB BLOOD ORDERABLES Final R esult EXTERNAL LAB documented in this encounter Visit Diagnoses Not on filedocumented in this encounter Care Teams Campaign Associate Relationship Specialty Start Date End Date Marcelo Reese MD [address] [facility] [address] PCP - General 06/22/20 documented as of this encounter
--- OUTSIDE RECORDS SUMMARY | 2024-11-23 17:33 | XMS_ITS | Encounter Summary ---
Author Organization [facility] Address [address] [place] [address] Care Team Providers Care Doping Supervisor Name Role Phone Marcelo Reese MD Primary Care Provider + [phone] Encounter Details Date Type Department Care Team (Late st Contact Info) Description 09/01/2018 [facility] OTTR Committee Historical OTTR [address] [place] [address] Jose Angel Bowman APRN [address] [place] [address] Social History Tobacco Use Types Packs/Day Years [...] on filedocumented in this encounter Care Teams Doping Supervisor Relationship Specialty Start Date End Date Marcelo Reese MD [address] [address] PCP - General 06/22/20 documented as of this encounter
--- OUTSIDE RECORDS SUMMARY | 2024-11-23 17:33 | XMS_ITS | Encounter Summary ---
Author Organization Healthcare Address [address] [place] [address] Care Team Providers Care Disaster Recovery Analyst Name Role Phone Marcelo Reese MD Primary Care Provider [phone] Encounter Details Date Type Department Care Team (Late st Contact Info) Description 03/16/2018 [facility] OTTR Encounter Historical OTTR [address] [place] [address] Jumana Ku, RN CH-TRANSPLANT ADMINISTRATION Social History [...] on filedocumented in this encounter Care Teams Disaster Recovery Analyst Relationship Specialty Start Date End Date Marcelo Reese MD [address] [place] [address] PCP - General 06/22/20 documented as of this encounter
--- OUTSIDE RECORDS SUMMARY | 2024-11-23 17:33 | XMS_ITS | Encounter Summary ---
Author Organization [facility] Address [address] [place] [address] Care Team Providers Care Police Aide Name Role Phone Marcelo Reese MD Primary Care Provider + [phone] Source Comments This information has been disclosed [...] release of HIV test results or diagnoses. [id number] Health Encounter Details Date Type Department Care Team (Late st Contact Info) Description 10/19/2024 Orders Only [facility] [address] [place] [address] Jose Patterson MD [address] [facility] [address] [place] [address] Social History Tobacco Use Types Packs/Day Years [...] Comments HOX - HLA ANTIBODY REPORT Routine 10/19/2024 1:29 PM EDT documented in this encounter Results * Hox - HLA Antibody Report (10/19/2024 1:29 PM EDT) 10/19/2024 1:29 PM EDT Jose Yesenia VILLALOBOS LAB BLOOD ORDERABLES Final Resul t Performing Organization Address City/State/[facility] Co de Phone Number [facility] [address] [place] [address] documented in this encounter Visit Diagnoses Not on filedocumented in this encounter Care Teams Police Aide Relationship Specialty Start Date End Date Marcelo Reese MD [address] [place] [address] PCP - General Family Medicine 03/09/23 documented as of this encounter
--- OUTSIDE RECORDS SUMMARY | 2024-11-23 17:33 | XMS_ITS | Encounter Summary ---
Author Organization [facility] Address [address] [place] [id number] Care Team Providers Care Shook Machine Operator Name Role Phone Marcelo Reese MD Primary Care Provider + [phone] Encounter Details Date Type Department Care Team (Late st Contact Info) Description 07/30/2018 [facility] OTTR Encounter Historical OTTR [address] [place] [address] Emily Livingston, RN HOSPITAL KIDNEY [id number] [address] [place] [id number] Social History Tobacco Use Types Packs/Day Years [...] EDT Called and s/w Jean Paul at [facility], verified that what pt was saying was accuarate and that psychhas been rescheduling pts appts. also verified that pt is to call next Thursday and they will get zita the August schedule. documented in this encounter Plan of Treatment Not on file documented as of this encounter Visit Diagnoses Not on filedocumented in this encounter Care Teams Shook Machine Operator Relationship Specialty Start Date End Date Marcelo Reese MD [address] [place] [address] PCP - General 06/22/20 documented as of this encounter
--- OUTSIDE RECORDS SUMMARY | 2024-11-23 17:33 | XMS_ITS | Encounter Summary ---
Author Organization [facility] Address [address] [place] [address] Care Team Providers Care Seed Cutter Name Role Phone Marcelo Reese MD Primary Care Provider [phone] Encounter Details Date Type Department Care Team (Late st Contact Info) Description 10/13/2024 Results Follow-Up [facility] [address] [place] [address] Angie Major RN [place] [phone] Social History Tobacco Use Types Packs/Day Years [...] drink first t caron in the morning (EYE-PRODUCTION ASSEMBLY SUPERVISOR) to steady your nerves or to [...] documented in this encounter Miscellaneous Notes * Result Encounter Note - Kinsey Mariano MD - 2024 10:32 AM EDT Yes, test overall unrevealing * Result Encounter Note - Angie Major RN - 10/17/2024 2:45 PM EDT OK for txp? * Result Encounter Note - Angie Major RN - 10/13/2024 4:10 PM EDT Please review: Renal cysts - any follow up? Vasculature documented in this encounter Plan of Treatment [...] documented as of this encounter Care Teams Seed Cutter Relationship Specialty Start Date End Date Marcelo Reese MD [address] [place] [address] PCP - General 06/22/20 documented as of this encounter
--- OUTSIDE RECORDS SUMMARY | 2024-11-23 17:33 | XMS_ITS | Encounter Summary ---
Author Organization [facility] [place] [facility] Address [address] [place] [address] Care Team Providers Care Criminal Researcher Name Role Phone Marcelo Reese MD Primary Care Provider [phone] Reason for Visit * Reason Comments Med Refill Encounter Details Date Type Department Care Team ([facility] st Contact Info) Description 01/20/2024 Refill [facility] Mineral Metabolism [address] [facility], [address] [place] [address] Brandon Michelle MD [address] [place] [address] Social History Tobacco Use Types [...] drink first t caron in the morning (EYE-BUFFET RUNNER) to steady your nerves or to get [...] documented as of this encounter Care Teams Criminal Researcher Relationship Specialty Start Date End Date Marcelo Reese MD [address] [facility] [address] [place] [address] PCP - General 06/22/20 documented as of this encounter
--- OUTSIDE RECORDS SUMMARY | 2024-11-23 17:33 | XMS_ITS | Encounter Summary ---
Author Organization Healthcare Address [address] [place] [address] Care Team Providers Care Carpenter Bridge Name Role Phone Marcelo Reese MD Primary Care Provider [phone] Encounter Details Date Type Department Care Team (Late st Contact Info) Description 06/17/2018 [facility] OTTR Encounter Historical OTTR [address] [place] [address] Paz Downey [place] [id number] Social History Tobacco Use Types Packs/Day Years [...] on filedocumented in this encounter Care Teams Carpenter Bridge Relationship Specialty Start Date End Date Marcelo Reese MD [address] [place] [address] PCP - General 06/22/20 documented as of this encounter
--- OUTSIDE RECORDS SUMMARY | 2024-11-23 17:33 | XMS_ITS | Encounter Summary ---
Author Organization Healthcare Address [address] [place] [address] Care Team Providers Care Rivet Tapping Machine Operator Name Role Phone Marcelo Reese MD Primary Care Provider [phone] Encounter Details Date Type Department Care Team (Late st Contact Info) Description 11/28/2021 Lab Requisition [facility] [address] [place] [address] Ankita Vicente MD [address] [place] [address] Awaiting organ transplant status; End stage renal [...] MD LAB BLOOD ORDERABLES Final Resul t IMP LAB [address] documented in this encounter Visit Diagnoses Diagnosis Awaiting organ transplant status End stage renal disease documented in this encounter Additional Health Concerns Assessment Noted Time A fall risk assessment has been complete d for the patient 12/17/2020 2:12 PM EST documented as of this encounter Care Teams Rivet Tapping Machine Operator Relationship Specialty Start Date End Date Marcelo Reese MD [address] [place] [address] PCP - General 06/22/20 documented as of this encounter
--- OUTSIDE RECORDS SUMMARY | 2024-11-23 17:33 | XMS_ITS | Encounter Summary ---
Author Organization Healthcare Address [address] [place] [address] Care Team Providers Care Mineral Mixer Name Role Phone Marcelo Reese MD Primary Care Provider [phone] Encounter Details Date Type Department Care Team (Late st Contact Info) Description 09/11/2021 Lab Requisition [facility] [address] [place] [address] Manuel Menon MD [address] [place] [address] Awaiting organ transplant status Social History Tobacco [...] MD LAB BLOOD ORDERABLES Final Res ult [facility] [address] [place], [place] [address] documented in this encounter Visit Diagnoses Diagnosis Awaiting organ transplant status documented in this encounter Additional Health Concerns Assessment Noted Time A fall risk assessment has been complete d for the patient 12/17/2020 2:12 PM EST documented as of this encounter Care Teams Mineral Mixer Relationship Specialty Start Date End Date Marcelo Reese MD [facility] [place] [address] PCP - General 06/22/20 documented as of this encounter
--- OUTSIDE RECORDS SUMMARY | 2024-11-23 17:33 | XMS_ITS | Encounter Summary ---
Author Organization [facility] Address [address] [place] [id number] Care Team Providers Care Take Off Man Name Role Phone Marcelo Reese MD Primary Care Provider + [phone] Encounter Details Date Type Department Care Team (Late st Contact Info) Description 07/30/2018 [facility] OTTR Encounter Historical OTTR [address] [place] [address] Emily Livingston, RN HOSPITAL KIDNEY [id number] [address] [place] [phone] Social History Tobacco Use Types Packs/Day Years [...] on filedocumented in this encounter Care Teams Take Off Man Relationship Specialty Start Date End Date Marcelo Reese MD [address] [facility] [address] [place] [address] PCP - General 06/22/20 documented as of this encounter
--- OUTSIDE RECORDS SUMMARY | 2024-11-23 17:33 | XMS_ITS | Encounter Summary ---
Author Organization Healthcare Address [address] [place] [address] Care Team Providers Care Golf Cart Repairer Name Role Phone Marcelo Reese MD Primary Care Provider [phone] Encounter Details Date Type Department Care Team (Late st Contact Info) Description 10/25/2021 Lab Requisition [facility] [address] [place] [address] Ankita Vicente MD [address] [place] [address] Awaiting organ transplant status; End stage renal [...] MD LAB BLOOD ORDERABLES Final Resul t [facility] [address] documented in this encounter Visit Diagnoses Diagnosis Awaiting organ transplant status End stage renal disease documented in this encounter Additional Health Concerns Assessment Noted Time A fall risk assessment has been complete d for the patient 12/17/2020 2:12 PM EST documented as of this encounter Care Teams Golf Cart Repairer Relationship Specialty Start Date End Date Marcelo Reese MD [address] [place] [address] PCP - General 06/22/20 documented as of this encounter
--- OUTSIDE RECORDS SUMMARY | 2024-11-23 17:33 | XMS_ITS | Encounter Summary ---
Author Organization Healthcare Address [address] [place] [address] Care Team Providers Care Ferryboat Operator Helper Name Role Phone Marcelo Reese MD Primary Care Provider [phone] Encounter Details Date Type Department Care Team (Late st Contact Info) Description 2024 Orders Only [facility] [address] [place] [address] Provider, [place] [address] Social History Tobacco Use Types Packs/Day Years [...] drink first t caron in the morning (EYE-GENERATING STATION MECHANIC) to steady your nerves or to get [...] Procedure Name Priority Date/Time Associated Diagnosis Comments COLONOSCOPY Routine 09/03/2023 11:09 AM EDT documented in this encounter Results * Colonoscopy (09/03/2023 11:09 AM EDT) Anatomical Region Laterality Modality Endoscopy us Historical Provider GI PROCEDURE ORDERABLES Tiana l Result documented in this encounter Visit Diagnoses Not on filedocumented in this encounter Additional Health Concerns Assessment Noted Time A fall risk assessment has been complete d for the patient 06/09/2024 7:48 AM EDT A Body Mass Index follow-up plan has been documented for the patient 10/13/2024 10:32 AM EDT documented as of this encounter Care Teams Ferryboat Operator Helper Relationship Specialty Start Date End Date Marcelo Reese MD [address] [place] PCP - General 06/22/20 documented as of this encounter
--- OUTSIDE RECORDS SUMMARY | 2024-11-23 17:33 | XMS_ITS | Encounter Summary ---
Author Organization [facility] Address [address] [place] [address] Care Team Providers Care Administrative Services Assistant Name Role Phone Marcelo Reese MD Primary Care Provider + [phone] Encounter Details Date Type Department Care Team (Late st Contact Info) Description 07/29/2017 [facility] OTTR Committee Historical OTTR [address] [place] [address] [address] [place] [address] Social History Tobacco Use Types Packs/Day Years Used Date Smoking Tobacco: Never Assessed Comments Unknown Sex and Gender Information Value Date Recorded Sex Assigned at Not on file Legal Sex Female 8:06 PM EDT Gender Identity Not on file Sexual Orientation Not on file documented as of this encounter Miscellaneous Notes * Progress Notes - ProviderDebbie MD - 07/29/2017 4:11 PM EDT 46 F, Stage IV-V CKD. Unclear etiology. Seen several months ago for ICE. Barrier to transplant is psychosocial. 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 [facility]. She continues to have issues and purges once a week or so. She seems open and relatively insightful about her condition. She endorses a good relationship withher current therapist and also sees [facility]. She was started on fluoxetine. Her weight [...] satisfactory treatment and resolution of her condition. Electronically signed by Interface, Pharmaceutical Specialty Representative Conversion at 05/31/2020 9:37 AM EDT * Progress Notes - Tiffani Kennedy - [...] occ etoh, former smoker, + tattoos/piercing; sees health and social care teacher for eating disorder Exam: undernourished, BMI 20, excellent pulses, no edema Labs: AIC 5.1%, OPos, GFR 15 Plan: 46 WF CKD not on dialysis, discussed concerns with taking meds, weight gain on steroids. Start with SW, psych (recs per blueprint engineer), and nutrition * Progress Notes - Jumana Ku - 04/29/2017 8:19 AM EDT Start evaluation with SW and psychiatry due to long history of eating disorders which patient states she continues to struggle. documented in this encounter Plan of Treatment Not on file documented as of this encounter Visit Diagnoses Not on filedocumented in this encounter Care Teams Administrative Services Assistant Relationship Specialty Start Date End Date Marcelo Reese MD [address] [facility] [address], [place] [address] PCP - General 06/22/20 documented as of this encounter
--- OUTSIDE RECORDS SUMMARY | 2024-11-23 17:33 | XMS_ITS | Encounter Summary ---
Author Organization Healthcare Address [address] [place] [address] Care Team Providers Care Contact Center Specialist Name Role Phone Marcelo Reese MD Primary Care Provider Encounter Details Date Type Department Care Team (Late st Contact Info) Description 11/29/2021 Lab Requisition [facility] [address] [place] [address] Ankita Vicente MD [address] [place] [address] End stage renal disease (CMS/HCC) Social History [...] DOS REGISTRATION REQUEST 11/29/2021 11:02 AM EDT [facility] Comment:For registration req uest only. Other Topography unknown / Unknown 08/13/2021 7:00 AM EDT 11/29/2021 9:46 AM EDT Ankita Vicente MD LAB BODY FLUIDS AND STOOLS ORDER SHANELL Final Result [facility] [address] [place] [address] documented in this encounter Visit Diagnoses Diagnosis End stage renal disease documented in this encounter Additional Health Concerns Assessment Noted Time A fall risk assessment has been complete d for the patient 12/17/2020 2:12 PM EST documented as of this encounter Care Teams Contact Center Specialist Relationship Specialty Start Date End Date Marcelo Reese MD [address] [place] [address] PCP - General 06/22/20 documented as of this encounter
--- OUTSIDE RECORDS SUMMARY | 2024-11-23 17:33 | XMS_ITS | Encounter Summary ---
Author Organization Healthcare Address [address] [place] [address] Care Team Providers Care Document Management Analyst Name Role Phone Marcelo Reese MD Primary Care Provider [phone] Encounter Details Date Type Department Care Team (Late st Contact Info) Description 04/23/2018 [facility] OTTR Encounter Historical OTTR [address] [place] [address] Jumana Ku, RN CH-TRANSPLANT ADMINISTRATION Social History [...] on filedocumented in this encounter Care Teams Document Management Analyst Relationship Specialty Start Date End Date Marcelo Reese MD [address] [place] [address] PCP - General 06/22/20 documented as of this encounter
--- OUTSIDE RECORDS SUMMARY | 2024-11-23 17:33 | XMS_ITS | Encounter Summary ---
Author Organization Healthcare Address [address] [place] [id number] Care Team Providers Care Meal Packer Name Role Phone Marcelo Reese MD Primary Care Provider [phone] Encounter Details Date Type Department Care Team (Late st Contact Info) Description 04/02/2018 [facility] OTTR Encounter Historical OTTR [address] [place] [address] [place] [address] Social History Tobacco Use Types Packs/Day Years [...] PM EST Pt has new coverage through [facility]. Policy # [id number]. Pt is approved for active listing per watch caser Krupa Hubbard at [phone] Auth # [id number], no expiration documented in this encounter Plan of Treatment Not on file documented as of this encounter Visit Diagnoses Not on filedocumented in this encounter Care Teams Meal Packer Relationship Specialty Start Date End Date Marcelo Reese MD [address] [place] [address] PCP - General 06/22/20 documented as of this encounter
--- OUTSIDE RECORDS SUMMARY | 2024-11-23 17:33 | XMS_ITS | Encounter Summary ---
Author Organization [facility] Address [address] [place] [id number] Care Team Providers Care Scalloper Name Role Phone Marcelo Reese MD Primary Care Provider [phone] Encounter Details Date Type Department Care Team (Late st Contact Info) Description 08/30/2018 [facility] OTTR Encounter Historical OTTR [address] [place] [address] January Walker, [place] [address] Social History Tobacco Use Types Packs/Day Years Used Date Smoking Tobacco: Never Assessed Comments Unknown Sex and Gender Information Value Date Recorded Sex Assigned at Not on file Legal Sex Female 8:06 PM EDT Gender Identity Not on file Sexual Orientation Not on file documented as of this encounter Miscellaneous Notes * Progress Notes - January Walker LCSW - 08/30/2018 10:31 AM EDT SW annual [...] on filedocumented in this encounter Care Teams Scalloper Relationship Specialty Start Date End Date Marcelo Reese MD [address] [place] [id number] PCP - General 06/22/20 documented as of this encounter
--- OUTSIDE RECORDS SUMMARY | 2024-11-23 17:33 | XMS_ITS | Encounter Summary ---
Author Organization Healthcare Address [address] [place] [address] Care Team Providers Care Grain Distributor Name Role Phone Marcelo Reese MD Primary Care Provider [phone] Encounter Details Date Type Department Care Team (Late st Contact Info) Description 09/01/2018 [facility] Encounter Historical OTTR [address] [place] [address] Tiffani Gambino [facility] [address] [place] [address] Social History Tobacco Use Types Packs/Day Years [...] on filedocumented in this encounter Care Teams Grain Distributor Relationship Specialty Start Date End Date Marcelo Reese MD [address] [place] [address] PCP - General 06/22/20 documented as of this encounter
--- OUTSIDE RECORDS SUMMARY | 2024-11-23 17:33 | XMS_ITS | Encounter Summary ---
Author Organization [facility] Address [address] [place] [address] Care Team Providers Care Merchandise Worker Name Role Phone Marcelo Reese MD Primary Care Provider [phone] Source Comments This information has been disclosed [...] release of HIV test results or diagnoses. [id number] Health Encounter Details Date Type Department Care Team (Late st Contact Info) Description 11/23/2024 Telephone [facility] Kidney Transplant at [address] [place] [phone] Tasneem Chas[place], [place] Social History Tobacco Use Types Packs/Day Years [...] encounter Miscellaneous Notes * Telephone Encounter - Chasity Boateng MA - 11/23/2024 3:04 PM EDT This MA returned REZA Ha VM regarding pt transplant status. This MA informed Dilcia that pt was reactivated on the kidney transplant waitlist on 09/27/24. Pt verbalizes understanding and has no further questions. documented in this encounter Plan of Treatment Not on file documented as of this encounter Visit Diagnoses Not on filedocumented in this encounter Care Teams Merchandise Worker Relationship Specialty Start Date End Date Marcelo Reese MD [address] [place] [address] PCP - General Family Medicine 03/09/23 documented as of this encounter
--- OUTSIDE RECORDS SUMMARY | 2024-11-23 17:33 | XMS_ITS | Encounter Summary ---
Author Organization [facility] Address [address] [place] [address] Care Team Providers Care Track Liner Operator Name Role Phone Marcelo Reese MD Primary Care Provider Reason for Visit * Reason Comments Med Refill Encounter Details Date Type Department Care Team ([facility] st Contact Info) Description 03/25/[address] [facility] Center Nephrology, Bone & Mineral Metabolism [address], [address] [place] [address] Brandon Michelle MD [address] [place] [address] Social History Tobacco Use Types [...] documented as of this encounter Care Teams Track Liner Operator Relationship Specialty Start Date End Date Marcelo Reese MD [address] [place] [address] PCP - General 06/22/20 documented as of this encounter
--- OUTSIDE RECORDS SUMMARY | 2024-11-23 17:33 | XMS_ITS | Encounter Summary ---
Author Organization Healthcare Address [address] [place] [address] Care Team Providers Care Animal Doctor Name Role Phone Marcelo Reese MD Primary Care Provider [phone] Encounter Details Date Type Department Care Team (Late st Contact Info) Description 06/14/2018 [facility] OTTR Encounter Historical OTTR [address] [place] [address] Jumana Ku, RN [facility] Social History [...] 4:17 PM EDT Annual orders placed in [facility]. Please schedule for August. Needs mammogram and colonoscopy (now required over age 45). documented in this encounter Plan of Treatment Not on file documented as of this encounter Visit Diagnoses Not on filedocumented in this encounter Care Teams Animal Doctor Relationship Specialty Start Date End Date Marcelo Reese MD [address] [place] [address] PCP - General 06/22/20 documented as of this encounter
--- OUTSIDE RECORDS SUMMARY | 2024-11-23 17:33 | XMS_ITS | Encounter Summary ---
Author Organization Healthcare Address [address] [place] [id number] Care Team Providers Care Trouble Dispatcher Name Role Phone Marcelo Reese MD Primary Care Provider [phone] Encounter Details Date Type Department Care Team (Late st Contact Info) Description 07/13/2018 [facility] OTTR Encounter Historical OTTR [address] [place] [address] Emily Livingston, RN [facility] [address] [place] [id number] Social History Tobacco Use Types Packs/Day Years [...] on filedocumented in this encounter Care Teams Trouble Dispatcher Relationship Specialty Start Date End Date Marcelo Reese MD [address] [place] [address] PCP - General 06/22/20 documented as of this encounter
--- OUTSIDE RECORDS SUMMARY | 2024-11-23 17:33 | XMS_ITS | Encounter Summary ---
Author Organization Healthcare Address [address] [place] [address] Care Team Providers Care Frame And Scrap Crusher Name Role Phone Marcelo Reese MD Primary Care Provider [phone] Encounter Details Date Type Department Care Team (Late st Contact Info) Description 12/30/2021 Lab Requisition [facility] [address] [place] [address] Manuel Menon MD [address] [place] [address] Awaiting organ transplant status; End stage renal [...] MD LAB BLOOD ORDERABLES Final Res ult [facility] [address] documented in this encounter Visit Diagnoses Diagnosis Awaiting organ transplant status End stage renal disease documented in this encounter Additional Health Concerns Assessment Noted Time A fall risk assessment has been complete d for the patient 12/17/2020 2:12 PM EST documented as of this encounter Care Teams Frame And Scrap Crusher Relationship Specialty Start Date End Date Marcelo Reese MD [address] [place] [address] PCP - General 06/22/20 documented as of this encounter
--- OUTSIDE RECORDS SUMMARY | 2024-11-23 17:33 | XMS_ITS | Encounter Summary ---
Author Organization [facility] Address [address] [place] [address] Care Team Providers Care Reed Repairer Name Role Phone Marcelo Reese MD Primary Care Provider [phone] Encounter Details Date Type Department Care Team (Late st Contact Info) Description 10/13/2024 Telephone [facility] Transplant Center [address] [facility] [address] [place] [address] Angie Major RN [place] [id number] Social History Tobacco Use Types Packs/Day Years [...] drink first t caron in the morning (EYE-ONION FARMER) to steady your nerves or to get [...] Telephone Encounter - Angie Major RN - 10/13/2024 4:19 PM EDT Left vm informing pt that we have all of her testing complete at this point except for dental clearance form, which she needs to take to her dentist for completion and have them return to us. As far as testing goes advised that I've sent everything that has resulted to our MD's for review and then will follow up with her if we need any additional testing. Encouraged pt to get hepatitis B vaccine.Left my number for any questions. documented in this encounter Plan of [...] documented as of this encounter Care Teams Reed Repairer Relationship Specialty Start Date End Date Marcelo Reese MD [address] [place] [address] PCP - General 06/22/20 documented as of this encounter
--- OUTSIDE RECORDS SUMMARY | 2024-11-23 17:33 | XMS_ITS ---
Author Organization [facility] Address [address] [place] [address] Care Team Providers Care Missile Tracking Technician Name Role Phone Marcelo Reese MD Primary Care Provider Transplant Episode Kidney Candidate [facility] ([place], [place]) [facility] Evaluation began on 06/14/2024 Marked as Active on 06/14/2024 Kidney CoordinatorAngie Major RN Fax: N/A Email: N/A Scores Score Value Updated Exceptions/Reas ons CPRA Not available EPTS (Calc) 32 11/23/2024 [place] Organ Diagnosis Organ Primary Contributory Kidney Other, Specify - UNKNOWN Care Team Name Role Phone Fax Email Angie Major RN Kidney Coordinator [phone] N/A N/A Cassia [place]a LCSW [place] Operator [phone] N/A N/A Brandon Michelle MD Referring Physician [phone] N/A Bayron Brown MD [place] Operator [phone] N/A Events Pre-Transplant Referred: 05/18/2024 Evaluation began: 06/14/2024 Committee: 06/14/2024 Dialysis History Dialysis History Start End Type Comments Center 05/21/2020 In-center Hemodialysis t,,sat [facility] Dialysis Center Information Center Phone Fax Address [facility] [phone] [place], [place] [address]
--- OUTSIDE RECORDS SUMMARY | 2024-11-23 17:33 | XMS_ITS | Encounter Summary ---
Author Organization [facility] Address [address] [place] [address] Care Team Providers Care Borough Coordinator Name Role Phone Marcelo Reese MD Primary Care Provider [phone] Encounter Details Date Type Department Care Team (Late st Contact Info) Description 08/30/2018 [facility] OTTR Encounter Historical OTTR [address] [place] [address] January Walker, [place] [address] Social History Tobacco Use Types Packs/Day Years Used Date Smoking Tobacco: Never Assessed Comments Unknown Sex and Gender Information Value Date Recorded Sex Assigned at Not on file Legal Sex Female 8:06 PM EDT Gender Identity Not on file Sexual Orientation Not on file documented as of this encounter Miscellaneous Notes * Progress Notes - January Walker, GROUNDWATER CONSULTANT - 08/30/2018 9:11 AM EDT Pt reports insurance has changed through her employer from [employer] to [employer]. Please update insurance clearance. Thanks!! documented in this encounter Plan of Treatment Not on file documented as of this encounter Visit Diagnoses Not on filedocumented in this encounter Care Teams Borough Coordinator Relationship Specialty Start Date End Date Marcelo Reese MD [address] [place] [address] PCP - General 06/22/20 documented as of this encounter
--- OUTSIDE RECORDS SUMMARY | 2024-11-23 17:33 | XMS_ITS | Encounter Summary ---
Author Organization Healthcare Address [address] [place] [address] Care Team Providers Care Real Estate Salesperson Name Role Phone Marcelo Reese MD Primary Care Provider [phone] Encounter Details Date Type Department Care Team (Latest Contact Info) Description 10/12/2024 Travel Social History Tobacco Use Types Packs/Day Years [...] drink first t caron in the morning (EYE-STONE GLUER) to steady your nerves or to get [...] documented as of this encounter Care Teams Real Estate Salesperson Relationship Specialty Start Date End Date Marcelo Reese MD [address] [place] [address] PCP - General 06/22/20 documented as of this encounter
--- OUTSIDE RECORDS SUMMARY | 2024-11-23 17:33 | XMS_ITS | Encounter Summary ---
Author Organization Healthcare Address [address] [place] [address] Care Team Providers Care Drift Miner Name Role Phone Marcelo Reese MD Primary Care Provider [phone] Encounter Details Date Type Department Care Team (Late st Contact Info) Description 03/14/2021 Lab Requisition [facility] [address] [place] [address] Manuel Menon MD [address] [place] [address] Awaiting organ transplant status Social History Tobacco [...] MD LAB BLOOD ORDERABLES Final Res ult [facility] [address] [place], [place] [address] documented in this encounter Visit Diagnoses Diagnosis Awaiting organ transplant status documented in this encounter Additional Health Concerns Assessment Noted Time A fall risk assessment has been complete d for the patient 12/17/2020 2:12 PM EST documented as of this encounter Care Teams Drift Miner Relationship Specialty Start Date End Date Marcelo Reese MD [address] [place] [address] PCP - General 06/22/20 documented as of this encounter
--- OUTSIDE RECORDS SUMMARY | 2024-11-23 17:33 | XMS_ITS ---
Author Organization Unknown TREATMENT PLAN [facility] Start Date Provider Encounter for Check-up [phone] [facility]
--- OUTSIDE RECORDS SUMMARY | 2024-11-23 17:33 | XMS_ITS | Encounter Summary ---
Author Organization Healthcare Address [address] [place] [address] Care Team Providers Care Angle Shear Set Up Operator Name Role Phone Marcelo Reese MD Primary Care Provider [phone] Encounter Details Date Type Department Care Team (Late st Contact Info) Description 06/15/2018 [facility] OTTR Encounter Historical OTTR [address] [place] [address] [address] [place] [place] [id number] Social History Tobacco Use Types Packs/Day Years [...] on filedocumented in this encounter Care Teams Angle Shear Set Up Operator Relationship Specialty Start Date End Date Marcelo Reese MD [address] [place] [address] PCP - General 06/22/20 documented as of this encounter
--- OUTSIDE RECORDS SUMMARY | 2024-11-23 17:34 | XMS_ITS | Patient Health Record ---
[facility] Address [address] [place] [id number] Care Team Providers Care Solar Installation Helper Name Role Phone Marcelo Reese Primary Care Provider Allergies Allergen (clinical drug ingredient) Drug/Non Drug Allergy documented on EMR Reaction Allergy Type Onset Date Status spironolactone Aldactone Unknown Drug Allergy Ac tive Substance with penicillin structure and antibacterial mechanism of action (substance) Penicillins Unknown Drug Allergy Active Results Component Value Reference Range Notes Mammogram Reviewed date:08/18/2024 04:00:42 PM Interpretation:Negative, F/U Annually Performing Lab: Notes/Report: Negative, F/U Annually Medications Medication SIG (Take, Route, Frequency, Duration) Notes Start Date End Date Status Ondansetron 4 MG 1 tablet on the tong ue and allow to dissolve Orally every 6 hours prn; Duration: 10 days 08/11/2022 Not-Takin g Levothyroxine Sodium 50 MCG 1 tablet in the morning on an empty stomach Orally Once a day; Duration: 30 day(s) 09/22/2023 Not-Taking Potassium Chloride ER 20 MEQ 3 tab(s) orally once a day Active Olmesartan Medoxomil 5 MG 1 tablet Orall y Once a day Not-Taking FLUoxetine HCl 40 MG 1 capsule Orally On ce a day Active Calcitriol 0.25 MCG 1 capsule Orally Onc e a day Active Carvedilol 6.25 MG 1 tablet with food Orally Twice a day; Duration: 30 day(s) Active Xphozah 20 MG 1 tablet immediately before meals Orally Twice a day Active FLUoxetine HCl 60 MG 1 tab(s) orally onc e a day (in the morning); Duration: 90 days Not-Taking Jolessa 0.15-0.03 MG 1 tab(s) orally onc e a day; Duration: 91 days Not-Takin g Allopurinol 100 MG 1 tab(s) orally 2 ti mes a day; Duration: 30 day(s) Not-Taking Immunizations Vaccine Route Administration Date Status Comme [...] Status Risk Notes Problem Renal failure syndrome (54319463) Renal insufficiency syndrome NOS (586) Active confirmed Problem Gout (29180532) Gout NOS (274.9) Active confirm ed Problem Gout (57481256) Gout (M10.9) Active confirmed Problem Anorexia (64781334) Anorexia (R63.0) Active con firmed Problem Bulimia nervosa (51254116) Bulimia nervosa (F50.2) Active confirmed Problem Hypertensive heart AND chronic kidney disease with congestive heart failure (98160237464700) Hypertensive heart and chronic kidney disease with heart failure and with stage 5 chronic kidney disease, or end stage renal disease (I13.2) Active confirmed Problem 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) Active confirmed Problem Chronic kidney disease stage 5 (715504152) Chronic kidney disease, stage 5 (N18.5) Active confirmed Problem End stage renal disease (12529780) End stage renal disease (N18.6) Active confirmed Problem Disorder of kidney and/or ureter (341461335) Other specified disorders of kidney and ureter (N28.89) Active confirmed Problem Dependence on renal dialysis (250664402) Dependence on renal dialysis (Z99.2) Active confirmed Problem Renal insufficiency (040418342) Renal insufficiency (N28.9) Active confirmed Problem New daily persistent headache (805372945208669) New daily persistent headache (G44.52) Active confirmed Problem Chronic renal failur e (47748606) Chronic renal failure (N18.9) Active confirmed Problem Menstrual disorder (063612958) Irregular menses (N92.6) Active confirmed Problem Sialoadenitis (00814576) Parotitis, acute (K11.21) Active confirmed Problem Pure hypercholesterolemia (834391426) Pure hypercholesterolemia (E78.00) Active confirmed Problem Anorexia nervosa (67881963) Anorexia nervosa (F50.00) Active confirmed Problem Renal failure syndrome (75605655) Renal failure, unspecified chronicity (N19) Active confirmed Vital Signs Heart Rate 56 /min 10/22/2024 Blood pressure diastolic 70 mm Hg 10/22/2024 Height 63 in 10/22/2024 Blood pressure systolic 140 mm Hg 10/22/2024 Weight 108.8 lbs 10/22/2024 BMI 19.27 kg/m2 10/22/2024 Encounters Encounter Location Date Provider Diagnosis [facility] [address] [place], [place] [id number] 10/22/2024 Marcelo [place] Anorexia nervosa F50 .00 ; History of [...] office today, see notes. Plan Of Treatment No Information Insurance Providers Payer Name Payer Address Payer Phone Subscriber Number Group Number Insured Name Patient Relationship to Insured Coverage Start Date Coverage End Date MEDICARE PART B [address] [address] [place] [id number] HERMELINDA CALIX Self - patient is the insured [facility] [address] [place] [address] [id number] HERMELINDA CALIX Self - patient is the [...] - [facility] 09/03/2023 Hospitalization History Reason Date(Month/Year) [facility] ER to of L - Small Tear following Colonoscopy 09/05/2023
--- OUTSIDE RECORDS SUMMARY | 2024-11-23 17:34 | XMS_ITS | Clinical Summary ---
Author Organization [facility] Address [address] [place] [address] Care Team Providers Care Appraisal Manager Name Role Phone Unavailable Primary Care Provider Unavailabl e Encounters Date Type Department Care Team Description 10/14/2024 Telephone [facility] [address] [facility] [address] [place], [place] [phone] Delmi Myers MD from Last 3 Months Social History Tobacco Use Types Packs/Day Years Used Date Smoking Tobacco: Never Assessed Comments Unknown Sex and Gender Information Value Date Recorded Sex Assigned at Not on file Legal Sex Female 11:55 AM EST Gender Identity Not on file Sexual Orientation Not on file Plan of Treatment Health Maintenance Due Date Last Done Comments CT Colonography 1971 FIT-DNA (Cologuard) 1971 FIT 1971 FOBT 1971 Hepatitis C Screening 1970 Lipid Panel 1970 Medicare Annual Wellness (AWV) 1970 Sigmoidoscopy 1971 MMR Vaccines (1 of 1 - Standard series) 10/17/1972 Hepatitis B Screening 10/17/1989 DTaP/Tdap/Td Vaccines (1 - Tdap) 10/17/1990 Hepatitis B Vaccines (1 of 3 - 19+ 3-dose series) 10/17/1990 Pap Smear 10/17/1992 Cervical Cancer Screening 10/17/2001 HPV/Cotest 10/17/2001 Mammogram 2011 Pneumococcal Vaccine: 50+ Years (1 of 1 - PCV) 10/17/2021 Zoster Vaccines (1 of 2) 10/17/2021 Depression Risk Screening 02/10/2024 SDOH Screening 02/10/2024 COVID-19 Vaccine (2 - 2024- season) 2024 04/18/2020 Influenza Vaccine (#1) 2024 , 12/15/2018, 10/28/2017 Colonoscopy 09/24/2033 09/25/2023, 12/10, 12/25/2022, Additional history exists Colorectal Cancer Screening 09/24/2033 HIV Screening Completed 02/24/2024, 06/17/2023 HIB Vaccines Aged Out No longer eligi ble based on patient's age to complete this topic HPV Vaccines Aged Out No longer eligi ble based on patient's age to complete this topic Hepatitis A Vaccines Aged Out No long er eligible based on patient's age to complete this topic IPV Vaccines Aged Out No longer eligi ble based on patient's age to complete this topic Meningococcal B Vaccine Aged Out No l onger eligible based on patient's age to complete this topic Meningococcal Vaccine Aged Out No jacquelin kaia eligible based on patient's age to complete this topic Rotavirus Vaccines Aged Out No longer eligible based on patient's age to complete this topic Procedures Procedure Name Priority Date/Time Associated Diagnosis Comments COLONOSCOPY 09/25/2023 12:07 PM EDT from Last 3 Months or Most Recently Relevant to Health Maintenance Results * Colonoscopy (09/25/2023 12:07 PM EDT) Anatomical Region Laterality Modality Endoscopy Narrative Procedure Note Tyrell Bower MD - 09/25/2023 12:07 PM EDT Patient: HERMELINDA CALIX Age: 52 Years Sex: Female : 1970 PROCEDURE(S): Colonoscopy INDICATION(S): Hematochezia Acute blood loss anemia PHYSICIAN(S): Primary Surgeon Attending - Tyrell Bower Fellow - Lonnie Lopez The Attending Physician was present throughout the entire procedure. SEDATION: GA: [x] MODERATE: [_] MEDICATIONS GIVEN: Per Anesthesia Prior to the procedure, a history and directed physical exam wasperformed. The patient's medications and allergies reviewed. The patientwas competent, risks and benefits of the procedure and sedation optionsand risks were discussed with the patient. All questions were answered,and informed consent was obtained. Patient identification and proposedprocedure were verified by the nurse and physician in the procedureroom. Patient was on previous anticoagulants or antiplatelets: [x] no, [_]yes ASA-GRADE ASSESSMENT: [_] 1 [_] 2 [x] 3 [_] 4 [_] 5 MENTAL STATUS EXAMINATION: Alert and oriented. AIRWAY EXAM: Normal. CARDIOVASCULAR: Normal. RESPIRATORY: Normal. DESCRIPTION OF PROCEDURE(S): After review of the risks and benefits, thepatient was deemed in satisfactory condition to undergo the procedure.Immediately prior to the procedure, the patient was reassessed foradequacy of the received sedation. The patient's heart rate, respiratoryrate, oxygen saturation, blood pressure, adequacy of pulmonary ventilationresponse to care were monitored throughout the entire procedure. Thephysical status of the patient was reassessed after the procedure. After obtaining informed consent, the scope was passed under directvision. The endoscope was introduced through the rectum and advanced tothe [x_] cecum [_] terminal ileum. The colonoscopy was accomplishedwithout difficulty. The prep quality was [_x] adequate [_] inadequate.Scope retrieval was at least 6 minutes without counting interventionsunless otherwise noted. The patient tolerated the procedure well. COLONOSCOPY FINDING(S): 1. Dark red blood with clots throughout the colon - appendiceal orificeand ileo- cecal valve identified 2. Prior polypectomy sites evaluated - clips in place without signs ofactive bleeding or stigmata of recent bleeding, clean based ulceration attransverse polypectomy site 3. External hemorrhoids ESTIMATED BLOOD LOSS: None LIMITATION(S): None ADVERSE EVENT(S): None SPECIMEN(S) COLLECTED: None RECOMMENDATION(S): 1. Clear liquid diet 2. Monitor overnight for any additional bleeding 3. Resume inpt orders Electronically Signed on09/25/2023 12:59 EDTYRELL BEJARANO MD-[facility] Tyrell Bower MD ENDOSCOPY PROCEDURE ORDERABLE S Final Result from Last 3 Months or Most Recently Relevant to Health Maintenance Insurance MEDICARE AN[place]M
--- OUTSIDE RECORDS SUMMARY | 2024-11-23 17:34 | XMS_ITS | Encounter Summary ---
Author Organization Healthcare Address [address] [place] [address] Care Team Providers Care Animal Control Licensing Worker Name Role Phone Marcelo Reese MD Primary Care Provider [phone] Encounter Details Date Type Department Care Team (Late st Contact Info) Description 08/21/2020 Lab Requisition [facility] [address] [place] [address] Manuel Menon MD [address] [place] [address] Awaiting organ transplant status Social History Tobacco [...] MD LAB BLOOD ORDERABLES Final Res ult [facility] [address] documented in this encounter Visit Diagnoses Diagnosis Awaiting organ transplant status documented in this encounter Care Teams Animal Control Licensing Worker Relationship Specialty Start Date End Date Marcelo Reese MD [address] [place] [address] PCP - General 06/22/20 documented as of this encounter
--- OUTSIDE RECORDS SUMMARY | 2024-11-23 17:34 | XMS_ITS | Encounter Summary ---
Author Organization Healthcare Address [address] [place] [address] Care Team Providers Care Central Sterile Tech Name Role Phone Marcelo Reese MD Primary Care Provider [phone] Encounter Details Date Type Department Care Team (Late st Contact Info) Description 12/18/2020 Lab Requisition [facility] [address] [place] [address] Manuel Menon MD [address] [place] [address] Awaiting organ transplant status Social History Tobacco [...] [facility] Co de Phone Number [facility] [address] documented in this encounter Visit Diagnoses Diagnosis Awaiting organ transplant status documented in this encounter Care Teams Central Sterile Tech Relationship Specialty Start Date End Date Marcelo Reese MD [address] [facility] [address] [address] PCP - General 06/22/20 documented as of this encounter
--- OUTSIDE RECORDS SUMMARY | 2024-11-23 17:34 | XMS_ITS | Encounter Summary ---
Author Organization Healthcare Address [address] [place] [address] Care Team Providers Care Corporate Counselor Name Role Phone Marcelo Reese MD Primary Care Provider Encounter Details Date Type Department Care Team (Late st Contact Info) Description 06/13/2021 Lab Requisition [facility] [address] [place] [address] Manuel Menon MD [address] [place] [address] Awaiting organ transplant status Social History Tobacco [...] documented as of this encounter Care Teams Corporate Counselor Relationship Specialty Start Date End Date Marcelo Reese MD [address] [place] [address] PCP - General 06/22/20 documented as of this encounter
--- OUTSIDE RECORDS SUMMARY | 2024-11-23 17:34 | XMS_ITS | Encounter Summary ---
Author Organization Healthcare Address [address] [place] [address] Care Team Providers Care Market Development Analyst Name Role Phone Marcelo Reese MD Primary Care Provider [phone] Encounter Details Date Type Department Care Team (Late st Contact Info) Description 09/20/2020 Lab Requisition [facility] [address] [place] [address] Manuel Menon MD [address] [place] [address] Awaiting organ transplant status Social History Tobacco [...] LAB BLOOD ORDERABLES Final Res ult [facility] [address] documented in this encounter Visit Diagnoses Diagnosis Awaiting organ transplant status documented in this encounter Care Teams Market Development Analyst Relationship Specialty Start Date End Date Marcelo Reese MD [address] [place] [address] PCP - General 06/22/20 documented as of this encounter
--- OUTSIDE RECORDS SUMMARY | 2024-11-23 17:34 | XMS_ITS ---
Author Organization [facility] Address [address] [place] [address] Care Team Providers Care Mattress Weaver Name Role Phone Marcelo Reese MD Primary Care Provider + [phone] Transplant Episode Kidney Candidate [facility] ([place], [place]) [place] [facility] [place] 10[place]06/2023 Marked as Active on 09/27/2024 Kidney CoordinatorBia Vieira RN Phone: N/A Fax: N/A Email: N/A Scores Score Value Updated Exceptions/Reas ons CPRA 0 08/29/2024 EPTS (Calc) 32 11/23/2024 [place] Organ Diagnosis Organ Primary Contributory Kidney Hypertensive Nephrosclerosis Care Team Name Role Phone Fax Email Bia Vieira RN Kidney Coordinator N/A N/A N/A Jose Patterson MD Txp Mining Manager [phone] N/A Aaliyah Vargas RN Txp Pre Coordinator N/A N/A N/A Brandon Michelle MD Referring Physician [phone] N/A Events Pre-Transplant Referred: 07/11/2022 Evaluation began: 12/01/2022 Committee: 10/05/2023 UNOS qualified: 05/21/2020 Center waitlisted: 10/06/2023 Dialysis History Dialysis History Start End Type Comments Center 05/21/2020 Hemo MWF [facility] Dialysis Center Information Center Phone Fax Address [facility] [phone] [place] [address]
--- OUTSIDE RECORDS SUMMARY | 2024-11-23 17:34 | XMS_ITS | Encounter Summary ---
Author Organization Healthcare Address [address] [place] [address] Care Team Providers Care Professor Of Genetics Name Role Phone Marcelo Reese MD Primary Care Provider + [phone] Encounter Details Date Type Department Care Team (Late st Contact Info) Description 01/27/2019 [facility] Encounter Historical [facility] 800 [place] [address] Vania Braswell [place] [id number] Social History Tobacco Use Types Packs/Day Years [...] consult dx CKD5. HandP dated 01/26/19 from [facility] saved in [facility]. Called pt at [phone], confirmed pt is scheduled for Surigical ICE [...] on filedocumented in this encounter Care Teams Professor Of Genetics Relationship Specialty Start Date End Date Marcelo Reese MD [address] [place] [address] PCP - General 06/22/20 documented as of this encounter
--- OUTSIDE RECORDS SUMMARY | 2024-11-23 17:34 | XMS_ITS | Encounter Summary ---
Author Organization Healthcare Address [address] [place] [address] Care Team Providers Care Inventory Representative Name Role Phone Marcelo Reese MD Primary Care Provider Reason for Visit * Reason Comments Med Refill Encounter Details Date Type Department Care Team ([facility] st Contact Info) Description 08/14/2020 Refill [facility] [address] [facility] [address] [place] [address] Brandon Michelle MD [address] [facility] [address] [place] [address] Social History Tobacco Use Types [...] on filedocumented in this encounter Care Teams Inventory Representative Relationship Specialty Start Date End Date Marcelo Reese MD [address] [place] [address] PCP - General 06/22/20 documented as of this encounter
--- OUTSIDE RECORDS SUMMARY | 2024-11-23 17:34 | XMS_ITS | Encounter Summary ---
Author Organization Healthcare Address [address] [place] [address] Care Team Providers Care Technology Coordinator Name Role Phone Marcelo Reese MD Primary Care Provider [phone] Encounter Details Date Type Department Care Team (Late st Contact Info) Description 11/29/2021 Lab Requisition [facility] [address] [place] [address] Ankita Vicente MD [address] [place] [address] End stage renal disease (CMS/HCC) Social History [...] DOS REGISTRATION REQUEST 11/29/2021 7:02 PM EDT [facility] Comment:For registration req uest only. Other Topography unknown / Unknown 07/16/2021 7:00 AM EDT 11/29/2021 5:24 PM EDT Ankita Vicente MD LAB BODY FLUIDS AND STOOLS ORDER SHANELL Final Result [facility] 800 [place] [address] documented in this encounter Visit Diagnoses Diagnosis End stage renal disease documented in this encounter Additional Health Concerns Assessment Noted Time A fall risk assessment has been complete d for the patient 12/17/2020 2:12 PM EST documented as of this encounter Care Teams Technology Coordinator Relationship Specialty Start Date End Date Marcelo Reese MD [address] [place] [address] PCP - General 06/22/20 documented as of this encounter
--- OUTSIDE RECORDS SUMMARY | 2024-11-23 17:34 | XMS_ITS | Encounter Summary ---
Author Organization Healthcare Address [address] [place] [address] Care Team Providers Care Supervisor Poultry Farm Name Role Phone Marcelo Reese MD Primary Care Provider [phone] Encounter Details Date Type Department Care Team (Late st Contact Info) Description 05/15/2021 Lab Requisition [facility] [address] [place] [address] Manuel Menon MD [address] [place] [address] Awaiting organ transplant status Social History Tobacco [...] documented as of this encounter Care Teams Supervisor Poultry Farm Relationship Specialty Start Date End Date Marcelo Reese MD [address] [place] [address] PCP - General 06/22/20 documented as of this encounter
--- OUTSIDE RECORDS SUMMARY | 2024-11-23 17:34 | XMS_ITS | Encounter Summary ---
Author Organization Healthcare Address [address] [place] [address] Care Team Providers Care Clinic Office Coordinator Name Role Phone Marcelo Reese MD Primary Care Provider + [phone] Encounter Details Date Type Department Care Team (Late st Contact Info) Description 12/17/2018 [facility] Encounter Historical OTTR [address] [place] [address] Jumana Ku RN [facility]-TRANSPLANT ADMINISTRATION Social History [...] tooth break and has another appt in [facility] for some more work. I am emailing her the dental form for her to obtain clearance as she says she has not infections. Pt stated she also had her mammogram performed at [facility] 11/01. Calling for record. documented in this encounter Plan of Treatment Not on file documented as of this encounter Visit Diagnoses Not on filedocumented in this encounter Care Teams Clinic Office Coordinator Relationship Specialty Start Date End Date Marcelo Reese MD [address] [facility] [address] [address] PCP - General 06/22/20 documented as of this encounter
--- OUTSIDE RECORDS SUMMARY | 2024-11-23 17:34 | XMS_ITS | Encounter Summary ---
Author Organization Healthcare Address [address] [place] [id number] Care Team Providers Care Legal Instructor Name Role Phone Marcelo Reese MD Primary Care Provider [phone] Encounter Details Date Type Department Care Team (Late st Contact Info) Description 09/24/2018 [facility] Encounter Historical OTTR 800 [place] [address] Emily Livingston, RN [id number] [address] [place] [id number] Social History Tobacco Use Types Packs/Day Years [...] on filedocumented in this encounter Care Teams Legal Instructor Relationship Specialty Start Date End Date Marcelo Reese MD [address] [place] [address] PCP - General 06/22/20 documented as of this encounter
--- OUTSIDE RECORDS SUMMARY | 2024-11-23 17:34 | XMS_ITS | Encounter Summary ---
Author Organization Healthcare Address [address] [place] [address] Care Team Providers Care Cover Cutter Name Role Phone Marcelo Reese MD Primary Care Provider [phone] Encounter Details Date Type Department Care Team (Late st Contact Info) Description 09/23/2024 Orders Only [facility] [address] [place] [address] Provider, [place] [address] Social History Tobacco Use Types Packs/Day Years [...] drink first t caron in the morning (EYE-ORNAMENTER HAND) to steady your nerves or to [...] Procedure Name Priority Date/Time Associated Diagnosis Comments PAP TEST - CYTOLOGY Routine 09/23/2024 1 1:33 AM EDT MAMMOGRAPHY BREAST DIAGNOSTIC TOMOSYNTHESIS BILATERAL Routine 09/23/2024 11:32 AM EDT documented in this encounter Results * Pap Test (09/23/2024 11:33 AM EDT) Thin Prep Vaginal and cervical cytologic material / Unknown Historical Provider LAB CYTOLOGY ORDERABLES Tiana l Result * Mammography Breast Diagnostic Tomosynthesis Bilateral (09/23/2024 11:32 AM EDT) Anatomical Region Laterality Modality Breast Bilateral Mammography us Historical Provider IMG BI PROCEDURES Final Resu lt documented in this encounter Visit Diagnoses Not on filedocumented in this encounter Additional Health Concerns Assessment Noted Time A fall risk assessment has been complete d for the patient 06/09/2024 7:48 AM EDT A Body Mass Index follow-up plan has been documented for the patient 06/13/2024 11:53 AM EDT documented as of this encounter Care Teams Cover Cutter Relationship Specialty Start Date End Date Marcelo Reese MD [address] [place] [address] PCP - General 06/22/20 documented as of this encounter
--- OUTSIDE RECORDS SUMMARY | 2024-11-23 17:34 | XMS_ITS | Encounter Summary ---
Author Organization Healthcare Address [address] [place] [address] Care Team Providers Care Prototype Engineer Manager Name Role Phone Marcelo Reese MD Primary Care Provider [phone] Encounter Details Date Type Department Care Team ([facility] st Contact Info) Description 09/27/2024 Orders Only [facility] [address] [facility], [address] [place] [address] Imelda Dallas, PA [address] [place] [address] Social History Tobacco Use Types [...] drink first t caron in the morning (EYE-SEO EXPERT) to steady your nerves or to get [...] documented in this encounter Miscellaneous Notes * Progress Notes - Imelda Dallas PA - 09/27/2024 5:43 PM EDT Refilled carvedilol documented in this encounter Plan of Treatment [...] documented as of this encounter Care Teams Prototype Engineer Manager Relationship Specialty Start Date End Date Marcelo Reese MD [address] [place] [address] PCP - General 06/22/20 documented as of this encounter
--- OUTSIDE RECORDS SUMMARY | 2024-11-23 17:34 | XMS_ITS | Clinical Summary ---
Author Organization [facility] Address [address] [place] [address] Care Team Providers Care Director Of Sustainable Design Name Role Phone Marcelo Reese MD Primary Care Provider + [phone] Source Comments This information has been disclosed [...] therelease of HIV test results or diagnoses. [id number] Allergies Active Allergy Reactions Criticality Noted Date [...] Encounters Date Type Department Care Team Description 11/23/2024 Telephone [facility] Kidney Transplant at [address] [phone] Chasity Boateng MA 10/19/2024 Orders Only [facility] Pancreas Transplant at Outpatient [address] [phone] Jose Patterson MD 2024 11:00 AM EDT Office Visit [facility] Psychiatry Transplant at [address] [phone] Gabby Montemayor PsyD Anorexia (Primary Dx); Bulimia nervosa in remission 09/30/2024 Telephone [facility] Kidney Transplant at [address] [phone] Ely Carrasco MA Appointment 09/30/2024 Social Work [facility] Kidney Transplant at [address] [phone] Radha Lyon MSW 09/27/2024 Chart Note [facility] Kidney Transplant at [address] [phone] Bia Vieira, JOSE [place] to reactivate patient on kidney [facility]. Updated PTH level received and 09/27/2024 Telephone [facility] Kidney Transplant at [address] [place] [address] Bia Vieira RN 08/29/2024 Orders Only [facility] Pancreas Transplant at Outpatient [address] [place] [phone] Jose Patterson MD 08/25/2024 Telephone [facility] Kidney Transplant at [facility] [address] [place] [address] Mariah Ayala RN from Last 3 Months Family History Medical [...] or PCV21) 10/28/2022 10/28/2017, 08/25/2017 Immunization: COVID-19 (3 - season) 2024 01/11/2021, 04/18/2020 Immunization: Influenza (MyC montiel) (#1) 2024 12/27/2021, 11/05/2019, 12/15/2018, Additional history exists Renal Function/GFR 02/23/2025 02/24/2024, 0 06/17/2023, 03/09/2023 Immunization: DTaP/Tdap/Td ( 2 - Td or Tdap) 07/03/2025 07/04/2015 Depression Screening 09/30/2025 09/30/2024, 12/19/19 23 Hepatitis C Screening (MyChart) Completed Immunization: Hepatitis B Completed 2023, 10/17/2023, 08/29/2023, Additional history exists HIV Screening Completed 02/24/2024, 06/17/2023 Procedures Procedure Name Priority Date/Time Associated Diagnosis Comments HOX - HLA ANTIBODY REPORT Routine 10/19/2024 1:29 PM EDT HOX - HLA ANTIBODY REPORT Routine 08/29/2024 12:41 PM EDT HIV 1+2 ANTIBODY/ANTIGEN WITH REFLEX Routine 02/24/2024 1:08 PM EST Patient on waiting list for kidney transplant ESRD (end stage renal disease) on dialysis ([facility]) Routine history and physical examination of adult BASIC METABOLIC PANEL Routine 02/24/2024 12:10 PM EST Patient on waiting list for kidney transplant ESRD (end stage renal disease) on dialysis ([facility]) Routine history and physical examination of adult HEPATITIS C ANTIBODY Routine 06/17/2023 4:00 PM EDT Pre-transplant evaluation for kidney transplant Hypertension secondary to other renal disorders ESRD (end stage renal disease) ([facility]) Routine history and physical examination of adult from Last 3 Months or Most Recently Relevant to Health Maintenance Results * [facility] - HLA Antibody Report (10/19/2024 1:29 PM EDT) Only the most recent of2 resultswithin the time period is included. 10/19/2024 1:29 PM EDT Jose Patterson MD LAB BLOOD ORDERABLES Final Resul t [facility] [address] [place] [address] * HIV-1 and HIV-2 antibodies (02/24/2024 1:08 PM EST) HIV 1+2 AB/AGN Nonreactive Nonreactive 02/24/2024 1:[address] [facility] Serum 02/24/2024 1:08 PM EST 02/24/2024 1:[address] [facility] - 02/24/2024 1:55 PM EST HIV-1 p24 Antigen and HIV-1/HIV-2 Antibody not detected. Chikis Reynoso CNP LAB BLOOD ORDERABLES Final Result [facility] [address] * (ABNORMAL) Basic metabolic panel (02/24/2024 12:10 PM EST) Sodium 139 133 - 146 mmol/L 02/24/2024 1:[address] [facility] Potassium 4.1 3.5 - 5.3 mmol/L 02/24/2024 1:[address] [facility] Chloride 96(L) 98 - 110 mmol/L 02/24/2024 1:[address] [facility] CO2 32 21 - 33 mmol/L 02/24/2024 1:[address] [facility] Anion Gap 11 3 - 16 mmol/L 02/24/2024 1:[address] [facility] BUN 18 7 - 25 mg/dL 02/24/2024 1:[address] [facility] Creatinine 7.97(H) 0.60 - 1.30 mg/dL 02/24/2024 1:[address] [facility] Glucose 93 70 - 100 mg/dL 02/24/2024 1:[address] [facility] Calcium 8.3(L) 8.6 - 10.3 mg/dL 02/24/2024 1:[address] [facility] Osmolality, Calculated 290 278 - 305 mOsm/kg 02/24/2024 1:[address] [facility] EGFR 6 02/24/2024 1:[address] [facility] Comment:As of 2021, the estimated GFR [...] Krystle M, Emerson DC, Nuvia ND, Romaine URIARTE, Toña [place], et al. A Unifying Approach for GFR Estimation: Recommendations of the NKF-ASN Task Force on Reassessing the inclusion of Race in Diagnosing Kidney Disease. Am J Kidney Dis. 2020. Plasma 02/24/2024 12:1 0 PM EST 02/24/2024 12:54 PM EST us Chikis Reynoso [facility] BLOOD ORDERABLES Final Result [facility] [address] [place], [place] [address] * Hepatitis C antibody (06/17/2023 4:00 PM EDT) HCV Ab Nonreactive Nonreactive 06/17/2023 5:53 PM EDT [facility]ALTH [facility] Comment:Health Department no tified in accordance with reportable infectious disease guidelines. Serum 06/17/2023 4:00 PM EDT 06/17/2023 4:49 PM EDT Narrative [facility] - 06/17/2023 5:53 PM EDT Antibodies to HCV not detected; does not exclude the possibility of exposure to HCV. us Jose Patterson MD LAB BLOOD ORDERABLES Final Resul t [facility] [address] from Last 3 Months or Most Recently Relevant to Health Maintenance Insurance [employer] MEDICARE A AND B MEDICARE A AND B Advance Directives For more information, please contact: [phone] * Full Code (Latest Code Status on File) Date Activated Date Inactivated Comments 03/09/2023 9:36 AM 03/09/2023 7:00 PM Care Teams Director Of Sustainable Design Relationship Specialty Start Date End Date Marcelo Reese MD [address] [place] [address] PCP - General Family Medicine 03/09/23
--- OUTSIDE RECORDS SUMMARY | 2024-11-23 17:34 | XMS_ITS | Encounter Summary ---
Author Organization Healthcare Address [address] [place] [phone] Care Team Providers Care Sulfur Burner Name Role Phone Marcelo Reese MD Primary Care Provider [phone] Encounter Details Date Type Department Care Team (Late st Contact Info) Description 09/02/2018 [facility] Encounter Historical OTTR 800 [place] [address] Emily Livingston, RN HOSPITAL KIDNEY [id number] [address] [place] [phone] Social History Tobacco Use Types Packs/Day Years [...] on filedocumented in this encounter Care Teams Sulfur Burner Relationship Specialty Start Date End Date Marcelo Reese MD [address] [place] [address] PCP - General 06/22/20 documented as of this encounter
--- OUTSIDE RECORDS SUMMARY | 2024-11-23 17:34 | XMS_ITS | Encounter Summary ---
Author Organization Healthcare Address [address] [place] [id number] Care Team Providers Care Dictaphone Technician Name Role Phone Marcelo Reese MD Primary Care Provider + [phone] Encounter Details Date Type Department Care Team (Late st Contact Info) Description 10/08/2018 [facility] Encounter Historical OTTR 800 [place] [address] Emily Livingston, RN HOSPITAL KIDNEY [id number] [address] [place] [phone] Social History Tobacco Use Types Packs/Day Years [...] some teeth extracted, by Dr. Colvin in [place], [place] (phone) [phone]. Left VM at Dr. Barton office for extraction records documented in this encounter Plan of Treatment Not on file documented as of this encounter Visit Diagnoses Not on filedocumented in this encounter Care Teams Dictaphone Technician Relationship Specialty Start Date End Date Marcelo Reese MD [address] [place] [address] PCP - General 06/22/20 documented as of this encounter
--- OUTSIDE RECORDS SUMMARY | 2024-11-23 17:34 | XMS_ITS | Encounter Summary ---
Author Organization Healthcare Address [address] [place] [address] Care Team Providers Care Veneer Jointer Name Role Phone Marcelo Reese MD Primary Care Provider + [phone] Encounter Details Date Type Department Care Team (Late st Contact Info) Description 03/04/2019 [facility] Encounter Historical OTTR 800 [place] [address] [place] [address] Social History Tobacco Use Types Packs/Day Years [...] filedocumented in this encounter Care Teams Veneer Jointer Relationship Specialty Start Date End Date Marcelo Reese MD [address] [facility] [address] [place] [address] PCP - General 06/22/20 documented as of this encounter
--- OUTSIDE RECORDS SUMMARY | 2024-11-23 17:34 | XMS_ITS | Encounter Summary ---
Author Organization Healthcare Address [address] [place] [address] Care Team Providers Care Laborer [employer] Name Role Phone Marcelo Reese MD Primary Care Provider [phone] Encounter Details Date Type Department Care Team (Late st Contact Info) Description 11/23/2020 Lab Requisition [facility] [address] [place] [address] Manuel Menon MD [address] [place] [address] Awaiting organ transplant status Social History Tobacco [...] [facility] [address] documented in this encounter Visit Diagnoses Diagnosis Awaiting organ transplant status documented in this encounter Care Teams Laborer [employer] Relationship Specialty Start Date End Date Marcelo Reese MD [address] [place] [address] PCP - General 06/22/20 documented as of this encounter
--- OUTSIDE RECORDS SUMMARY | 2024-11-23 17:34 | XMS_ITS | Encounter Summary ---
Author Organization Healthcare Address [address] [place] [address] Care Team Providers Care Creative Specialist Name Role Phone Marcelo Reese MD Primary Care Provider [phone] Encounter Details Date Type Department Care Team (Late st Contact Info) Description 10/22/2020 Lab Requisition [facility] [address] [place] [address] Manuel Menon MD [address] [place] [address] Chronic kidney disease, stage 5 (CMS/HCC) Social [...] MD LAB BLOOD ORDERABLES Final Res ult [facility] [address] documented in this encounter Visit Diagnoses Diagnosis Chronic kidney disease, stage 5 (CMS/HCC) documented in this encounter Care Teams Creative Specialist Relationship Specialty Start Date End Date Marcelo Reese MD [address] [place] [address] PCP - General 06/22/20 documented as of this encounter
--- OUTSIDE RECORDS SUMMARY | 2024-11-23 17:34 | XMS_ITS | Encounter Summary ---
Author Organization Healthcare Address [address] [place] [id number] Care Team Providers Care Varnish Melter Helper Name Role Phone Marcelo Reese MD Primary Care Provider + [phone] Encounter Details Date Type Department Care Team (Late st Contact Info) Description 09/02/2018 [facility] En[facility] [address] [place] [address] Emily Livingston, RN [id number] [address] [id number] Social History Tobacco Use Types Packs/Day Years [...] on filedocumented in this encounter Care Teams Varnish Melter Helper Relationship Specialty Start Date End Date Marcelo Reese MD [address] [id number] PCP - General 06/22/20 documented as of this encounter
--- OUTSIDE RECORDS SUMMARY | 2024-11-23 17:34 | XMS_ITS | Encounter Summary ---
Author Organization [facility] Address [address] [place] [address] Care Team Providers Care Soil Expert Name Role Phone Unavailable Primary Care Provider Unavailabl e Encounter Details Date Type Department Care Team (Late st Contact Info) Description 10/14/2024 Telephone [facility] [address] [place] [address] Delmi Myers MD [address] [facility] [place] [address] Social History Tobacco Use Types Packs/Day Years Used Date Smoking Tobacco: Never Assessed Comments Unknown Sex and Gender Information Value Date Recorded Sex Assigned at Not on file Legal Sex Female 11:55 AM EST Gender Identity Not on file Sexual Orientation Not on file documented as of this encounter Miscellaneous Notes * Telephone Encounter - Rm Wright RN - 10/14/2024 11:04 AM EDT Faxed notes * Telephone Encounter - Kathy Rodrigezett - 10/14/2024 10:56 AM EDT Call Back Number:[phone] and fax [phone] Person calling (patient/caregiver/facility/etc):Angie Michelle GI Patient's provider:Delmi Adams called wants to know if the patient completed the colonoscopy 08/2023 need notes and to seewhen the next colonoscopy is needed please Advise thank you If request is urgent, was a warm transfer to the clinic attempted? []Yes [x]No If yes, please document the outcome of the warm transfer: If the caller reports any of the following symptoms STOP and WARM transfer to the office: Nausea/vomiting Abdominal pain Line issues GI bleeding - rectal bleeding; vomiting blood documented in this encounter Plan of Treatment Not on file documented as of this encounter Visit Diagnoses Not on filedocumented in this encounter
--- OUTSIDE RECORDS SUMMARY | 2024-11-23 17:34 | XMS_ITS | Encounter Summary ---
Author Organization Healthcare Address [address] [id number] Care Team Providers Care Incident Commander Name Role Phone Marcelo Reese MD Primary Care Provider [phone] Encounter Details Date Type Department Care Team (Late st Contact Info) Description 11/03/2018 [facility] Encounter [facility] [address] [place] [address] Emily Livingston, RN [id number] [address] [phone] Social History Tobacco Use Types Packs/Day Years [...] on filedocumented in this encounter Care Teams Incident Commander Relationship Specialty Start Date End Date Marcelo Reese MD [address] [place] [address] PCP - General 06/22/20 documented as of this encounter
[2024-11-23 18:00] VITALS: BP 162/83; PULSE 71; O2SAT 96
[2024-11-23 18:21] VITALS: BP 162/83; PULSE 74; RESP 20; TEMP 36.8; O2SAT 94
== END 2024-11-23 18:22 | disposition home or self-care (01) ==
PROVIDERS: Emergency Provider Student in an Organized Health Care Education/Training Program
DX: T17.908A Unspecified foreign body in respiratory tract, part unspecified causing other injury, initial encounter (principal); W44.8XXA Other foreign body entering into or through a natural orifice, initial encounter; Z12.11 Encounter for screening for malignant neoplasm of colon; D12.2 Benign neoplasm of ascending colon; D12.5 Benign neoplasm of sigmoid colon; K63.5 Polyp of colon; K57.30 Diverticulosis of large intestine without perforation or abscess without bleeding; K64.1 Second degree hemorrhoids; Z86.0101 Personal history of adenomatous and serrated colon polyps; N18.6 End stage renal disease; Z99.2 Dependence on renal dialysis; Z76.82 Awaiting organ transplant status; Z79.899 Other long term (current) drug therapy; Z88.0 Allergy status to penicillin
CPT/HCPCS: 71045; 99282; 99284; J2003; J2704; J7120